=== PATIENT | male | born 1970 | race Caucasian/White ===

== ENCOUNTER 2017-05-27 11:06 | Emergency (ER) | payer OTHER ==
[~2017-05-27] VITALS: Ht 182.9 cm; Wt 86.2 kg
[~2017-05-27 11:06] MED LIST: ASPIRIN EC81 MG PO; AUGMENTIN 875-1 EACH PO; BACITRACIN15 GM TOP; BACTRIM DS TAB1 EACH PO; BACTROBAN22 GM TOP; CEPHALEXIN500 MG PO; CLINDAMYCIN HC300 MG PO; CYCLOBENZAPRINE10 MG PO; KEFLEX500 MG PO; LISINOPRIL20 MG PO; NORCO 5-325 TA1 EACH PO; NOVOLIN 70100 UNITS/ SUB-Q; TYLENOL PM EX-1 EACH PO; ULTRAM50 MG PO; ZESTRIL10 MG PO; ZOFRAN ODT4 MG PO
--- OUTSIDE RECORDS SUMMARY | 2017-05-27 11:10 | XMS ---
Demographics + + + | Address | [facility] | | | [place] | | | [place] [address] | + + + | Preferred Language | Unknown | + + + | Marital Status | Unknown | + + + | Denominational Affiliation | Unknown | + + + | Race | Unknown | + + + | Ethnic Group | Unknown | + + + Author + + + | Author | [facility] | + + + | Organization | [facility] | + + + | Address | [address] | | | [place] [address] | + + + | Phone | | + + + Care Team Providers + + + + | Care Automatic Pinsetter Mechanic Name | Role | Phone | + + + + Unavailable | Unavailable | + + + + PROBLEMS +---------+ + + +--------+ + + | Type | Condition | ICD9-CM | [id number] | Onset | Condition | SNOMED | | | | Code | Code | Dates | Status | Code | +---------+ + + +--------+ + + | Problem | Pain in | 724.1 | | | Active | 529753607 | | | thoracic | | | | | | | | spine | | | | | | +---------+ + + +--------+ + + | Problem | Type I | E10.8 | | | Active | 898649381 | | | diabetes | | | | | | | | mellitus | | | | | | | | with | | | | | | | | complicati | | | | | | | | on | | | | | | +---------+ + + +--------+ + + | Problem | Diabetes | E10.9 | | | Active | 238490228 | | | mellitus | | | | | | | | type 1, | | | | | | | | controlled | | | | | | | | , without | | | | | | | | complicati | | | | | | | | ons | | | | | | +---------+ + + +--------+ + + | Problem | Diabetes | 250.91 | | | Active | 730814413 | | | mellitus | | | | | | | | type 1 | | | | | | | | w/unspec | | | | | | | | complicati | | | | | | | | on, not | | | | | | | | stated as | | | | | | | | uncontroll | | | | | | | | ed | | | | | | +---------+ + + +--------+ + + | Problem | CONVULSIVE | 780.39 | | | Active | 28014785 | | | DISORDER | | | | | | +---------+ + + +--------+ + + | Problem | Atypical | 786.59 | | | Active | 424586263 | | | chest pain | | | | | | +---------+ + + +--------+ + + | Problem | Elevated | 796.2 | | | Active | 866310858 | | | blood | | | | | | | | pressure | | | | | | | | reading | | | | | | | | without | | | | | | | | diagnosis | | | | | | | | of | | | | | | | | hypertensi | | | | | | | | on | | | | | | +---------+ + + +--------+ + + | Problem | Other | | E13.621 | | Active | 426968361 | | | specified | | | | | | | | diabetes | | | | | | | | mellitus | | | | | | | | with foot | | | | | | | | ulcer | | | | | | +---------+ + + +--------+ + + | Problem | Diabetic | E11.42 | | | Active | 502043575 | | | peripheral | | | | | | | | | | | | | | | | neuropathy | | | | | | +---------+ + + +--------+ + + | Problem | Hypertensi | | I10 | | Active | 87599883 | | | on | | | | | | +---------+ + + +--------+ + + | Problem | Type 1 | | E10.69 | | Active | 597612530 | | | diabetes | | | | | | | | mellitus | | | | | | | | with other | | | | | | | | specified | | | | | | | | | | | | | | | | complicati | | | | | | | | on | | | | | | +---------+ + + +--------+ + + | Problem | Type 1 | | E10.621 | | Active | [id number] | | | diabetes | | | | | 68080 | | | mellitus | | | | | | | | with foot | | | | | | | | ulcer | | | | | | +---------+ + + +--------+ + + | Problem | Encounter | L02.91 | | | Active | 23059270 | | | for | | | | | | | | drainage | | | | | | | | of abscess | | | | | | +---------+ + + +--------+ + + ALLERGIES Unknown Allergies SOCIAL HISTORY No smoking Hx information available PLAN OF CARE VITAL SIGNS MEDICATIONS + + +---------+ + + + +--------+ | Medicati | Instruct | Dosage | Frequenc | Start | End Date | Duration | Status | | on | ions | | y | Date | | | | + + +---------+ + + + +--------+ | Doxycycl | Orally | 1 | 12h | 06 Lorenzo, | 16 Lorenzo, | 10 | Active | | ine | every 12 | capsule | | 2017 | 2017 | day(s) | | | Hyclate | hrs | | | | | | | | 100 mg | | | | | | | | + + +---------+ + + + +--------+ RESULTS No Results PROCEDURES No Known procedures IMMUNIZATIONS No Known Immunizations"
--- OUTSIDE RECORDS SUMMARY | 2017-05-27 11:10 | XMS ---
Demographics + + + | Address | [address] | | | [place] | | | [place] [address] | + + + | Preferred Language | Unknown | + + + | Marital Status | Unknown | + + + | Mormon Affiliation | Unknown | + + + | Race | Unknown | + + + | Ethnic Group | Unknown | + + + Author + + + | Author | [facility] | + + + | Organization | [facility] | + + + | Address | [address] | | | [place] [address] | + + + | Phone | | + + + Care Team Providers + + + + | Care Career And Guidance Counselor Name | Role | Phone | + + + + Unavailable | Unavailable | + + + + PROBLEMS + + + + + + + + | Type | Condition | ICD9-CM | [id number] | Onset | Condition | SNOMED | | | | Code | Code | Dates | Status | Code | + + + + + + + + | Problem | Pain in | 724.1 | | | Active | [id number] | | | thoracic | | | | | | | | spine | | | | | | + + + + + + + + | Problem | Type I | E10.8 | | | Active | 604409237 | | | diabetes | | | | | | | | mellitus | | | | | | | | with | | | | | | | | complicati | | | | | | | | on | | | | | | + + + + + + + + | Problem | Diabetes | E10.9 | | | Active | 863760520 | | | mellitus | | | | | | | | type 1, | | | | | | | | controlled | | | | | | | | , without | | | | | | | | complicati | | | | | | | | ons | | | | | | + + + + + + + + | Problem | Other | | E13.621 | | Active | 849838654 | | | specified | | | | | | | | diabetes | | | | | | | | mellitus | | | | | | | | with foot | | | | | | | | ulcer | | | | | | + + + + + + + + | Problem | Diabetic | E11.42 | | | Active | 175977931 | | | peripheral | | | | | | | | | | | | | | | | neuropathy | | | | | | + + + + + + + + | Problem | Hypertensi | | I10 | | Active | 63807225 | | | on | | | | | | + + + + + + + + | Problem | Type 1 | | E10.69 | | Active | 126644915 | | | diabetes | | | [...] on | | | | | | + + + + + + + + | Problem | Type 1 | | E10.621 | | Active | [id number] | | | diabetes | | | | | [address] | | | mellitus | | | | | | | | with foot | | | | | | | | ulcer | | | | | | + + + + + + + + | Problem | Encounter | L02.91 | | | Active | 54984366 | | | for | | | | | | | | drainage | | | | | | | | of abscess | | | | | | + + + + + + + + | Problem | Diabetes | 250.91 | | | Active | 666848331 | | | mellitus | | | [...] ed | | | | | | + + + + + + + + | Problem | CONVULSIVE | 780.39 | | | Active | 26186296 | | | DISORDER | | | | | | + + + + + + + + | Problem | Atypical | 786.59 | | | Active | 902682668 | | | chest pain | | | | | | + + + + + + + + | Assessment | Type 1 | | E10.69 | 08 March, | Active | 355165173 | | | diabetes | | | 2016 | | | | | mellitus | | | | | | | | with other | | | | | | | | specified | | | | | | | | | | | | | | | | complicati | | | | | | | | on | | | | | | + + + + + + + + | Problem | Elevated | 796.2 | | | Active | 298263133 | | | blood | | | [...] on | | | | | | + + + + + + + + ALLERGIES + + + + +---------+ | Substance | Reaction | Event Type | Date | Status | + + + + +---------+ | N.K.D.A. | Unknown | Non Drug | March, | Unknown | | | | Allergy | | | + + + + +---------+ SOCIAL HISTORY No smoking Hx information available PLAN OF CARE VITAL SIGNS + + + + | Height | 70 in | 2017-03-08 | + + + + | Weight | 186.6 lbs | 2017-03-08 | + + + + | BMI | 26.77 kg/m2 | 2017-03-08 | + + + + | Temperature | 98.7 degrees Fahrenheit | 2017-03-08 | + + + + | Heart Rate | 79 /min | 2017-03-08 | + + + + | Blood pressure systolic | 131 mm Hg | 2017-03-08 | + + + + | Blood pressure diastolic | 79 mm Hg | 2017-03-08 | + + + + MEDICATIONS + + + + + + + +--------+ | Medicati | Instruct | Dosage | Frequenc | Start | End Date | Duration | Status | | on | ions | | y | Date | | | | + + + + + + + +--------+ | Novolin | Subcutan | as | 12h | | | 30 | Active | | 70/30 | eous bid | directed | | | | | | | 70-30 % | | 42 | | | | | | | | | units | | | | | | + + + + + + + +--------+ | Metoprol | Orally | 1 tab(s) | 12h | 15 Mar, | | 30 | Active | | ol | bid | | | 2017 | | day(s) | | | Tartrate | | | | | | | | | 50 MG | | | | | | | | + + + + + + + +--------+ | OneTouch | | as | | 18 Apr, | | | Active | | Delica | | directed | | 2015 | | | | | Lancing | | | | | | | | | Dev | | | | | | | | + + + + + + + +--------+ | One | | as | | 18 Apr, | | | Active | | Touch | | directed | | 2015 | | | | | Glucomet | | | | | | | | | er | | | | | | | | + + + + + + + +--------+ | Lisinopr | Orally | 1 tablet | 24h | 24 Oct, | | 30 | Active | | il 20 mg | Once a | | | 2015 | | day(s) | | | | day | | | | | | | + + + + + + + +--------+ | One | | | | 18 Apr, | | | Active | | Touch | | | | 2015 | | | | | Delica | | | | | | | | | Lancets | | | | | | | | + + + + + + + +--------+ RESULTS No Results PROCEDURES + + + + + | Procedure | Date Ordered | Related Diagnosis | Body Site | + + + + + | Est Level II | March 08, 2017 | | | | Limited | | | | + + + + + IMMUNIZATIONS No Known Immunizations"
--- OUTSIDE RECORDS SUMMARY | 2017-05-27 11:10 | XMS ---
Demographics + + + | Address | [facility] | | | [place] | | | [place] [address] | + + + | Preferred Language | Unknown | + + + | Marital Status | Unknown | + + + | Evangelical Affiliation | Unknown | + + + | Race | Unknown | + + + | Ethnic Group | Unknown | + + + Author + + + | Author | [facility] | + + + | Organization | [facility] | + + + | Address | [address] | | | [place] [address] | + + + | Phone | | + + + Care Team Providers + + + + | Care Information Engineer Name | Role | Phone | + + + + Unavailable | Unavailable | + + + + PROBLEMS +---------+ + + +--------+ + + | Type | Condition | ICD9-CM | [id number] | Onset | Condition | SNOMED | | | | Code | Code | Dates | Status | Code | +---------+ + + +--------+ + + | Problem | Pain in | 724.1 | | | Active | 552983959 | | | thoracic | | | | | | | | spine | | | | | | +---------+ + + +--------+ + + | Problem | Type I | E10.8 | | | Active | 454262447 | | | diabetes | | | | | | | | mellitus | | | | | | | | with | | | | | | | | complicati | | | | | | | | on | | | | | | +---------+ + + +--------+ + + | Problem | Diabetes | E10.9 | | | Active | 129045810 | | | mellitus | | | [...] | 250.91 | | | Active | 324058393 | | | mellitus | | | [...] | 780.39 | | | Active | 84006067 | | | DISORDER | | | | | | +---------+ + + +--------+ + + | Problem | Atypical | 786.59 | | | Active | 316841053 | | | chest pain | | | | | | +---------+ + + +--------+ + + | Problem | Elevated | 796.2 | | | Active | 194799935 | | | blood | | | [...] | | E13.621 | | Active | 990890509 | | | specified | | | [...] | E11.42 | | | Active | 148283822 | | | peripheral | | | | | | | | | | | | | | | | neuropathy | | | | | | +---------+ + + +--------+ + + | Problem | Hypertensi | | I10 | | Active | 35901995 | | | on | | | | | | +---------+ + + +--------+ + + | Problem | Type 1 | | E10.69 | | Active | 254028008 | | | diabetes | | | [...] | | E10.621 | | Active | 2467395100 | | | diabetes | | | | | [address] | | | mellitus | | | | | | | | with foot | | | | | | | | ulcer | | | | | | +---------+ + + +--------+ + + | Problem | Encounter | L02.91 | | | Active | 77542931 | | | for | | | | | | | | drainage | | | | | | | | of abscess | | | | | | +---------+ + + +--------+ + + ALLERGIES Unknown Allergies SOCIAL HISTORY No smoking Hx information available PLAN OF CARE VITAL SIGNS MEDICATIONS Unknown Medications RESULTS No Results PROCEDURES No Known procedures IMMUNIZATIONS No Known Immunizations"
--- OUTSIDE RECORDS SUMMARY | 2017-05-27 11:10 | XMS ---
Demographics + + + | Address | [facility] | | | [place] | | | [place] [address] | + + + | Preferred Language | Unknown | + + + | Marital Status | Unknown | + + + | Rastafarian Affiliation | Unknown | + + + | Race | Unknown | + + + | Ethnic Group | Unknown | + + + Author + + + | Author | [facility] | + + + | Organization | [facility] | + + + | Address | [address] | | | [place] [address] | + + + | Phone | | + + + Care Team Providers + + + + | Care Die Attacher Name | Role | Phone | + + + + Unavailable | Unavailable | + + + + PROBLEMS +---------+ + + +--------+ + + | Type | Condition | ICD9-CM | [id number] | Onset | Condition | SNOMED | | | | Code | Code | Dates | Status | Code | +---------+ + + +--------+ + + | Problem | Pain in | 724.1 | | | Active | 886838092 | | | thoracic | | | | | | | | spine | | | | | | +---------+ + + +--------+ + + | Problem | Type I | E10.8 | | | Active | 456826431 | | | diabetes | | | | | | | | mellitus | | | | | | | | with | | | | | | | | complicati | | | | | | | | on | | | | | | +---------+ + + +--------+ + + | Problem | Diabetes | E10.9 | | | Active | 379188574 | | | mellitus | | | [...] | 250.91 | | | Active | 695097999 | | | mellitus | | | [...] | 780.39 | | | Active | 58359412 | | | DISORDER | | | | | | +---------+ + + +--------+ + + | Problem | Atypical | 786.59 | | | Active | 162460236 | | | chest pain | | | | | | +---------+ + + +--------+ + + | Problem | Elevated | 796.2 | | | Active | 780665324 | | | blood | | | [...] | | E13.621 | | Active | 042033311 | | | specified | | | [...] | E11.42 | | | Active | 819511902 | | | peripheral | | | | | | | | | | | | | | | | neuropathy | | | | | | +---------+ + + +--------+ + + | Problem | Hypertensi | | I10 | | Active | 51737388 | | | on | | | | | | +---------+ + + +--------+ + + | Problem | Type 1 | | E10.69 | | Active | 706499596 | | | diabetes | | | [...] | | E10.621 | | Active | 8274424379 | | | diabetes | | | | | [address] | | | mellitus | | | | | | | | with foot | | | | | | | | ulcer | | | | | | +---------+ + + +--------+ + + | Problem | Encounter | L02.91 | | | Active | 49671064 | | | for | | | | | | | | drainage | | | | | | | | of abscess | | | | | | +---------+ + + +--------+ + + ALLERGIES + + + + +---------+ | Substance | Reaction | Event Type | Date | Status | + + + + +---------+ | Joel | Unknown | Non Drug | Apr, | Unknown | | | | Allergy | | | + + + + +---------+ SOCIAL HISTORY No smoking Hx information available PLAN OF CARE + +---------+ | Activity | Details | + +---------+ +---+ | | +---+ + + + | Follow Up | 4 Weeks Reason:null | + + + VITAL SIGNS + + + + | Height | 70 in | 2017-04-08 | + + + + | Weight | 186.2 lbs | 2017-04-08 | + + + + | BMI | 26.71 kg/m2 | 2017-04-08 | + + + + | Temperature | 98.4 degrees Fahrenheit | 2017-04-08 | + + + + | Heart Rate | 73 /min | 2017-04-08 | + + + + | Blood pressure systolic | 115 mm Hg | 2017-04-08 | + + + + | Blood pressure diastolic | 79 mm Hg | 2017-04-08 | + + + + MEDICATIONS + [...] | ol | bid | | | 2016 | | day(s) | | | Tartrate [...] + + + + + +--------+ RESULTS + +--------+ + + | Name | Result | Date | Reference Range | + +--------+ + + | Culture, Aerobic | | 2017-04-08 | | + +--------+ + + | CULTURE, AEROBIC | | | | + +--------+ + + PROCEDURES No Known procedures IMMUNIZATIONS No Known Immunizations"
[2017-05-27] MEDS ORDERED: METOPROLOL TART50 MG PO (11:22)
[2017-05-27] MEDS ORDERED: KEFLEX500 MG PO (13:43)
== END 2017-05-27 13:57 | disposition home or self-care (01) ==
LOC: ED 11:06
DX: L98.9 Disorder of the skin and subcutaneous tissue, unspecified (principal); E10.9 Type 1 diabetes mellitus without complications; I10 Essential (primary) hypertension; E11.9 Type 2 diabetes mellitus without complications; Z87.891 Personal history of nicotine dependence; Z90.49 Acquired absence of other specified parts of digestive tract; Z79.4 Long term (current) use of insulin; Z79.899 Other long term (current) drug therapy
CPT/HCPCS: 36415; 85025; 99283

== ENCOUNTER 2017-05-29 12:43 | Emergency (ER) | payer OTHER ==
[~2017-05-29] VITALS: Ht 182.9 cm; Wt 86.2 kg
[~2017-05-29 12:43] MED LIST changes: +METOPROLOL TART50 MG PO
[2017-05-29] MEDS ORDERED: BACTRIM DS TAB1 EACH PO (16:26)
== END 2017-05-29 16:40 | disposition home or self-care (01) ==
LOC: ED 12:43
DX: L03.116 Cellulitis of left lower limb (principal); E10.9 Type 1 diabetes mellitus without complications; I10 Essential (primary) hypertension; Z79.4 Long term (current) use of insulin; Z90.49 Acquired absence of other specified parts of digestive tract
CPT/HCPCS: 80053; 83605; 85025; 96372; 99284; J7120

== ENCOUNTER 2017-06-13 12:34 | Emergency (ER) | payer OTHER ==
[~2017-06-13] VITALS: Ht 182.9 cm; Wt 86.2 kg
[2017-06-13] MEDS ORDERED: KEFLEX500 MG PO (13:09)
== END 2017-06-13 13:21 | disposition home or self-care (01) ==
LOC: ED 12:34
DX: L03.116 Cellulitis of left lower limb (principal); E11.9 Type 2 diabetes mellitus without complications; I10 Essential (primary) hypertension; Z87.891 Personal history of nicotine dependence; Z90.49 Acquired absence of other specified parts of digestive tract; Z79.4 Long term (current) use of insulin; Z79.899 Other long term (current) drug therapy
CPT/HCPCS: 99283

== ENCOUNTER 2019-11-13 17:57 | Emergency (ER) | payer OTHER ==
[~2019-11-13] VITALS: Ht 182.9 cm; Wt 86.2 kg
--- OUTSIDE RECORDS SUMMARY | ~2019-11-13 | XMS | Encounter Summary ---
Demographics + + + | Address | [address] | | | [place] [address] | + + + | Home Phone | | + + + | Preferred Language | Unknown | + + + | Marital Status | Unknown | + + + | Hoahaoism Affiliation | Unknown | + + + | Race | Unknown | + + + | Ethnic Group | Unknown | + + + Author + + + | Author | [facility] | | | and [place] | + + + | Organization | [facility] | | | and [place] | + + + | Address | Unknown | + + + | Phone | Unavailable | + + + Support + + + + + | Name | Relationship | Address | Phone | + + + + + | Message Detailed | ECON | [address] | | | | | [place] | | | | | [address] | | + + + + + Care Team Providers + +------+ + | Care Survey Operations Director Name | Role | Phone | + +------+ + | Yrn Buckley MD | PCP | | + +------+ + Encounter Details +--------+ + + + + | Date | Type | Department | Care Team | Description | +--------+ + + + + | 06/23/ | Orders Only | [facility] | Eros Rothman MD | Kidney failure | | 2019 | | [place]OLOGY [place] | [address] | | | | | [address] | [address] [place], [place] | | | | | [address] [place], [place] | [address] | | | | | [address] | | | | | | [phone] | | | +--------+ + + + + Social History + +-------+ +--------+------+ | Tobacco Use | Types | Packs/Day | Years | Date | | | | | Used | | + +-------+ +--------+------+ | Never Assessed | | | | | + +-------+ +--------+------+ + + + | Sex Assigned at | Date Recorded | | | | + + + | Not on file | | + + + + + + + | Job Start Date | Occupation | Industry | + + + + | Not on file | Not on file | Not on file | + + + + + + + + | Travel History | Travel Start | Travel End | + + + + + + | No recent travel history available. | + + documented as of this encounter Plan of Treatment +--------+---------+ + + + | Date | Type | Specialty | Care Team | Description | +--------+---------+ + + + | 12/18/ | Office | Nephrology | Eros Rothman MD | | | 2019 | Visit | | [address] [facility] [address] | | | | | | [facility] [place] [place] | | | | | | [address] | | | | | | | | +--------+---------+ + + + + +------+--------+ + + | Name | Type | Priori | Associated Diagnoses | Order Schedule | | | | ty | | | + +------+--------+ + + | Basic Metabolic | Lab | Routin | Kidney failure | Expected: | | Panel | | e | | 07/12/2019, Expires: | | | | | | 05/03/2020 | + +------+--------+ + + | CBC with | Lab | Routin | Kidney failure | Expected: | | Differential | | e | | 07/12/2019, Expires: | | | | | | 05/03/2020 | + +------+--------+ + + | Protein/Creatinine | Lab | Routin | Kidney failure | Expected: | | Ratio, Urine | | e | | 07/12/2019, Expires: | | | | | | 05/03/2020 | + +------+--------+ + + | Urinalysis with | Lab | Routin | Kidney failure | Expected: | | Microscopic if | | e | | 07/12/2019, Expires: | | Indicated | | | | 05/03/2020 | + +------+--------+ + + | Uric Acid | Lab | Routin | Kidney failure | Expected: | | | | e | | 07/12/2019, Expires: | | | | | | 05/03/2020 | + +------+--------+ + + documented as of this encounter Visit Diagnoses + + | Diagnosis | + + | Kidney failure Renal failure, unspecified | + + documented in this encounter"
--- OUTSIDE RECORDS SUMMARY | ~2019-11-13 | XMS | Encounter Summary ---
Demographics + + + | Address | [address] | | | [place] [address] | + + + | Home Phone | | + + + | Preferred Language | Unknown | + + + | Marital Status | Unknown | + + + | Mormon Affiliation | Unknown | + + + | Race | Unknown | + + + | Ethnic Group | Unknown | + + + Author + + + | Author | [facility] | | | and [place] | + + + | Organization | [facility] | | [...] [place] | | | | | [address] | | + + + + + Care Team Providers + +------+ + | Care Instructional Design Consultant Name | Role | Phone | + +------+ + | Yrn Buckley MD | PCP | | + +------+ + Encounter Details +--------+ + + + + | Date | Type | Department | Care Team | Description | +--------+ + + + + | 05/18/ | Orders Only | [facility] | Conversion | | | 2019 | | CONVERSION [address] | Transaction, | | | | | [address] | Provider Unknown | | | | | [place] | [phone] | | | | | [address] | | | | | | [phone] | | | +--------+ + + + [...] 2019 | Visit | | [address] [facility] | | | | | | [address] [place] | | | | | | [address] | | | | | | | | +--------+---------+ + + + documented as of this encounter Visit Diagnoses Not on filedocumented in this encounter"
--- OUTSIDE RECORDS SUMMARY | ~2019-11-13 | XMS | Encounter Summary ---
Demographics + + + | Address | [address] | | | [place] [address] | + + + | Home Phone | | + + + | Preferred Language | Unknown | + + + | Marital Status | Unknown | + + + | Synagogue Affiliation | Unknown | + + + | Race | Unknown | + + + | Ethnic Group | Unknown | + + + Author + + + | Author | [facility] | | | and [place] | + + + | Organization | [facility] | | | and [place] | + + + | Address | Unknown | + + + | Phone | Unavailable | + + + Support + + + + + | Name | Relationship | Address | Phone | + + + + + | Message Detailed | ECON | [address] | | | | | [place] | | | | | [address] | | + + + + + Care Team Providers + +------+ + | Care Agricultural Purchasing Agent Name | Role | Phone | + +------+ + | Yrn Buckley MD | PCP | | + +------+ + Reason for Visit +---------+ + | Reason | Comments | +---------+ + | Results | 10/03/19 | +---------+ + Encounter Details +--------+ + + + + | Date | Type | Department | Care Team | Description | +--------+ + + + + | 10/09/ | Documentati | [facility] | Garcia, | Results (10/03/19) | | 2019 | on | NEPHROLOGY SHAHRIAR | [facility] | | | | | [address] | [employer] | | | | | [address] [facility] | | | | | | [place] | | | | | | [address] | | | | | | [phone] | | | +--------+ + + + [...] | Eros Rothman MD | | | 2020 | Visit | | [address] [facility] | | | | | | [address] [place] | | | | | | [address] | | | | | | | | +--------+---------+ + + + documented as of this encounter Procedures + +--------+ + + + | Procedure Name | Priori | Date/Time | Associated Diagnosis | Comments | | | ty | | | | + +--------+ + + + | CBC NO DIFFERENTIAL | Routin | 10/03/2019 | | Results for this | | | e | | | procedure are in the | | | | | | results section. | + +--------+ + + + | URINALYSIS | Routin | 10/03/2019 | | Results for this | | | e | | | procedure are in the | | | | | | results section. | + +--------+ + + + | CULTURE, URINE | Routin | 10/03/2019 | | Results for this | | | e | | | procedure are in the | | | | | | results section. | + +--------+ + + + | URIC ACID | Routin | 10/03/2019 | | Results for this | | | e | | | procedure are in the | | | | | | results section. | + +--------+ + + + | BASIC METABOLIC | Routin | 10/03/2019 | | Results for this | | PANEL | e | | | procedure are in the | | | | | | results section. | + +--------+ + + + documented in this encounter Results Culture, Urine (10/03/2019) + + + + + + | Component | Value | Ref Range | Performed | Pathologist | | | | | At | Signature | + + + + + + | Urine | No growth | | | | | Culture, | | | | | | Routine | | | | | + + + + + + + + | Specimen | + + | Urine | + + Urinalysis (10/03/2019) + + + + + + | Component | Value | Ref Range | Performed | Pathologist | | | | | At | Signature | + + + + + + | Color | Yellow | | | | + + + + + + | Clarity | Cloudy | | | | + + + + + + | Specific | 1.011 | 1.001 - 1.030 | | | | [place] | | | | | + + + + + + | pH, Urine | 5.0 | 5.0 - 8.0 | | | + + + + + + | Protein, | 300 mg/dL (A) | Negative | | | | Urine | | | | | + + + + + + | Glucose, | Trace (A) | Negative | | | | Urine | | | | | + + + + + + | Ketones, | Negative | Negative | | | | Urine | | | | | + + + + + + | Bilirubin, | Negative | Negative | | | | Urine | | | | | + + + + + + | Blood, | Moderate (A) | Negative | | | | Urine | | | | | + + + + + + | Nitrite, | Negative | Negative | | | | Urine | | | | | + + + + + + | Urobilinoge | Normal | < 0.2 mg/dL, | | | | n, Urine | | 1.0 mg/dL, 4.0 | | | | | | mg/dL, Normal, | | | | | | 1.0 E.U./dL, | | | | | | 0.2 E.U./dL, | | | | | | 0.2 mg/dL, | | | | | | Negative, 1 | | | | | | mg/dL, <2.0 | | | | | | mg/dL | | | + + + + + + | Leukocyte | Trace (A) | Negative | | | | Esterase, | | | | | | Urine | | | | | + + + + + + | CASTS | Negative | | | | + + + + + + | WBC UA | 10 | /HPF | | | + + + + + + | RBC UA | 5 | /HPF | | | + + + + + + | Epithelial | 1+ | | | | | Cells | | | | | + + + + + + | CRYSTAL UA | Negative | | | | + + + + + + | Bacteria, | 1+ | | | | | UA | | | | | + + + + + + + + | Specimen | + + | Urine | + + CBC with Manual Differential (10/03/2019) + + + + + + | Component | Value | Ref Range | Performed | Pathologist | | | | | At | Signature | + + + + + + | WBC | 7.3 | 4.5 - 11.0 | | | + + + + + + | RBC | 3.04 (A) | 4.30 - 5.70 | | | | | | M/uL | | | + + + + + + | Hemoglobin | 8.7 (A) | 13.5 - 18.0 | | | + + + + + + | Hematocrit, | 26.9 (A) | 41.0 - 50.0 % | | | | POC | | | | | + + + + + + | MCV | 88.6 | 81.0 - 99.0 fL | | | + + + + + + | MCH | 29.0 | 27.0 - 33.0 pg | | | + + + + + + | MCHC | 32.0 | 30.0 - 36.0 | | | | | | g/dL | | | + + + + + + | Platelet | 206 | 140 - 440 | | | | Count | | | | | | Plasma | | | | | + + + + + + | RDW | 15.2 (A) | 10.5 - 15.0 | | | + + + + + + | Neutrophils | 67.9 | 39 - 80 | | | | , Absolute | | | | | + + + + + + | Absolute | 17.3 (A) | 24 - 44 | | | | Lymphocytes | | | | | + + + + + + | Absolute | 7.4 | 0 - 12 | | | | Monocytes | | | | | + + + + + + | Eosinophils | 6.5 (A) | 0 - 6 | | | | , Absolute | | | | | + + + + + + | Basophils, | 0.9 | 0 - 2 | | | | Absolute | | | | | + + + + + + + + | Specimen | + + | Blood | + + Basic Metabolic Panel (10/03/2019) + + + + + + | Component | Value | Ref Range | Performed | Pathologist | | | | | At | Signature | + + + + + + | Na | 138 | 132 - 143 | | | | | | mmol/L | | | + + + + + + | K | 5.9 (A) | 3.6 - 5.1 | | | | | | mmol/L | | | + + + + + + | Cl | 110 | 95 - 112 mmol/L | | | + + + + + + | CO2 | 16 (A) | 19 - 31 mmol/L | | | + + + + + + | Anion Gap | 18 | 7 - 21 mmol/L | | | + + + + + + | Glucose | 109 (A) | 70 - 100 mg/dL | | | + + + + + + | Calcium | 8.6 | 8.5 - 10.3 | | | + + + + + + | BUN | 63 (A) | 6 - 23 mg/dL | | | + + + + + + | Creatinine | 6.85 (A) | 0.70 - 1.33 | | | | | | mg/dL | | | + + + + + + | Estimated | 9.0 (A) | 60.0 - 140.0 | | | | GFR | | mL/min/1.73m2 | | | + + + + + + | BUN/Creatin | 9.2 | 6.0 - 28.6 | | | | ine Ratio | | | | | + + + + + + + + | Specimen | + + | Blood | + + Uric Acid (10/03/2019) + +---------+ + + + | Component | Value | Ref Range | Performed | Pathologist | | | | | At | Signature | + +---------+ + + + | Uric Acid | 9.0 (A) | 4.4 - 7.6 | | | + +---------+ + + + + + | Specimen | + + | Blood | + + documented in this encounter Visit Diagnoses Not on filedocumented in this encounter"
--- OUTSIDE RECORDS SUMMARY | ~2019-11-13 | XMS | Encounter Summary ---
Demographics + + + | Address | [address] | | | [place] [address] | + + + | Home Phone | | + + + | Preferred Language | Unknown | + + + | Marital Status | Unknown | + + + | Anabaptist Affiliation | Unknown | + + + | Race | Unknown | + + + | Ethnic Group | Unknown | + + + Author + + + | Author | [facility] | | | and [place] | + + + | Organization | [facility] | | | [...] [place] | | | | | [address] | | + + + + + Care Team Providers + +------+ + | Care Surplus Property Disposal Agent Name | Role | Phone | + +------+ + | Yrn Buckley MD | PCP | | + +------+ + Reason for Visit +--------+ + | Reason | Comments | +--------+ + | Other | US retroperitoneal 07/26/19 | +--------+ + Encounter Details +--------+ + + + + | Date | Type | Department | Care Team | Description | +--------+ + + + + | 10/13/ | Documentati | [facility] | Jose, | Other ( | | 2019 | on | NEPHROLOGY SHAHRIAR | [facility] | retroperitoneal | | | | [address] | [employer] | 07/26/19) | | | | [address] | | | | | | [place] | | | | | | [address] | | | | | | [phone] | | | +--------+ + + + [...] 2020 | Visit | | [address] [facility] | | | | | | [address] [place] | | | | | | [address] | | | | | | | | +--------+---------+ + + + documented as of this encounter Visit Diagnoses Not on filedocumented in this encounter"
--- OUTSIDE RECORDS SUMMARY | ~2019-11-13 | XMS | Encounter Summary ---
Demographics + + + | Address | [address] | | | [place] [address] | + + + | Home Phone | | + + + | Preferred Language | Unknown | + + + | Marital Status | Unknown | + + + | Mormon Affiliation | Unknown | + + + | Race | Unknown | + + + | Ethnic Group | Unknown | + + + Author + + + | Author | [facility] | | | and [place] | + + + | Organization | [facility] | | | and [...] [place] | | | | | [address] | | + + + + + Care Team Providers + +------+ + | Care Extrusion Operator Name | Role | Phone | + +------+ + | Yrn Buckley MD | PCP | | + +------+ + Reason for Visit +---------+ + | Reason | Comments | +---------+ + | Results | 11/10/19 | +---------+ + Encounter Details +--------+ + + + + | Date | Type | Department | Care Team | Description | +--------+ + + + + | 11/13/ | Documentati | [facility] | Garcia, | Results (11/10/19) | | 2020 | on | NEPHROLOGY YAIMA | [facility] | | | | | [address] | [address] Monitor | | | | | [address] [facility] [place] | | | | | | [address] | | | | | | [phone] | | | +--------+ + + + [...] 2020 | Visit | | [address] [facility] | | | | | | [address] [facility] | | | | | | [address] | | | | | | (Fax) | | +--------+---------+ + + + documented as of this encounter Procedures + +--------+ + + + | Procedure Name | Priori | Date/Time | Associated Diagnosis | Comments | | | ty | | | | + +--------+ + + + | EXTERNAL LAB: PTH, | Routin | 11/10/2019 | | Results for this | | INTACT | e | | | procedure are in the | | | | | | results section. | + +--------+ + + + | IMMUNOFIXATION, | Routin | 11/10/2019 | | Results for this | | SERUM | e | | | procedure are in the | | | | | | results section. | + +--------+ + + + | CBC NO DIFFERENTIAL | Routin | 11/10/2019 | | Results for this | | | e | | | procedure are in the | | | | | | results section. | + +--------+ + + + | IRON AND IRON | Routin | 11/10/2019 | | Results for this | | BINDING CAPACITY | e | | | procedure are in the | | | | | | results section. | + +--------+ + + + | KAPPA AND LAMBDA | Routin | 11/10/2019 | | Results for this | | LIGHT CHAIN RATIO | e | | | procedure are in the | | | | | | results section. | + +--------+ + + + | PROTEIN/CREATININE | Routin | 11/10/2019 | | Results for this | | RATIO, URINE | e | | | procedure are in the | | | | | | results section. | + +--------+ + + + | RENAL FUNCTION PANEL | Routin | 11/10/2019 | | Results for this | | | e | | | procedure are in the | | | | | | results section. | + +--------+ + + + documented in this encounter Results Immunofixation, Serum (11/10/2019) + +-------+ + + + | Component | Value | Ref Range | Performed | Pathologist | | | | | At | Signature | + +-------+ + + + | Protein, | 6.4 | | | | | Total | | | | | + +-------+ + + + | Albumin | 3.4 | g/dL | | | + +-------+ + + + | ALPHA 1, BF | 0.22 | | | | + +-------+ + + + | IgG Serum | 1,523 | | | | + +-------+ + + + | Immunoglobu | 204 | | | | | gunnar A, | | | | | | Quant, CSF | | | | | + +-------+ + + + | ALPHA 2, BF | 0.70 | | | | + +-------+ + + + | BETA 1, BF | 0.73 | | | | + +-------+ + + + | GAMMA, BF | 1.39 | | | | + +-------+ + + + | Immunoglobu | 88 | | | | | gunnar M Urine | | | | | + +-------+ + + + + + | Specimen | + + | Blood | + + Mangham and Lambda Light Chain Ratio (11/10/2019) + +-------+ + + + | Component | Value | Ref Range | Performed | Pathologist | | | | | At | Signature | + +-------+ + + + | KAPPA LIGHT | 19.60 | | | | | CHAIN | | | | | + +-------+ + + + | LAMBDA | 14.60 | | | | | LIGHT CHAIN | | | | | + +-------+ + + + | KAPPA/LAMBD | 1.34 | | | | | A RATIO | | | | | + +-------+ + + + + + | Specimen | + + | Blood | + + External Lab: PTH, Intact (11/10/2019) + + + + + + | Component | Value | Ref Range | Performed | Pathologist | | | | | At | Signature | + + + + + + | PTH Intact, | 165.4 (A) | 15 - 65 | | | | External | | | | | + + + + + + + + | Specimen | + + | | + + CBC with Manual Differential (11/10/2019) + + + + + + | Component | Value | Ref Range | Performed | Pathologist | | | | | At | Signature | + + + + + + | WBC | 7.1 | 4.5 - 11.0 | | | + + + + + + | RBC | 3.09 (A) | 4.30 - 5.70 | | | | | | M/uL | | | + + + + + + | Hemoglobin | 8.9 (A) | 13.5 - 18.0 | | | + + + + + + | Hematocrit, | 26.8 (A) | 41.0 - 50.0 % | | | | POC | | | | | + + + + + + | MCV | 86.8 | 81.0 - 99.0 fL | | | + + + + + + | MCH | 29.0 | 27.0 - 33.0 pg | | | + + + + + + | MCHC | 33.0 | 30.0 - 36.0 | | | | | | g/dL | | | + + + + + + | Platelet | 254 | 140 - 440 | | | | Count | | | | | | Plasma | | | | | + + + + + + | RDW | 14.9 | 10.5 - 15.0 | | | + + + + + + | Neutrophils | 74.9 | 39 - 80 | | | | , Absolute | | | | | + + + + + + | Absolute | 14.4 (A) | 24 - 44 | | | | Lymphocytes | | | | | + + + + + + | Absolute | 5.6 | 0 - 12 | | | | Monocytes | | | | | + + + + + + | Eosinophils | 4.9 | 0 - 6 | | | | , Absolute | | | | | + + + + + + | Basophils, | 1.2 | 0 - 2 | | | | Absolute | | | | | + + + + + + + + | Specimen | + + | Blood | + + Iron and Iron Binding Capacity (11/10/2019) + +-------+ + + + | Component | Value | Ref Range | Performed | Pathologist | | | | | At | Signature | + +-------+ + + + | Iron | 74 | 37 - 160 ug/dL | | | + +-------+ + + + | Iron | 29 | 20 - 55 % | | | | Saturation | | | | | + +-------+ + + + | TIBC | 254 | 245 - 400 ug/dL | | | + +-------+ + + + | Ferritin, | 392.3 | 30 - 400 | | | | External | | | | | + +-------+ + + + | TRANSFERRIN | 181.7 | 180.0 - 329.0 | | | | | | mg/dL | | | + +-------+ + + + + + | Specimen | + + | Blood | + + Renal Function Panel (11/10/2019) + + + + + + | Component | Value | Ref Range | Performed | Pathologist | | | | | At | Signature | + + + + + + | Na | 134 | 132 - 143 | | | | | | mmol/L | | | + + + + + + | K | 4.9 | 3.6 - 5.1 | | | | | | mmol/L | | | + + + + + + | Cl | 107 | 95 - 112 mmol/L | | | + + + + + + | CO2 | 13 (A) | 19 - 31 mmol/L | | | + + + + + + | Anion Gap | 19 | 7 - 21 mmol/L | | | + + + + + + | Glucose | 137 (A) | 70 - 100 mg/dL | | | + + + + + + | BUN | 100 (A) | 6 - 23 mg/dL | | | + + + + + + | Creatinine | 9.34 (A) | 0.70 - 1.33 | | | | | | mg/dL | | | + + + + + + | Estimated | 6.0 (A) | 60.0 - 140.0 | | | | GFR | | mL/min/1.73m2 | | | + + + + + + | BUN/Creatin | 10.7 | 6.0 - 28.6 | | | | ine Ratio | | | | | + + + + + + | Albumin | 3.4 (A) | 3.5 - 5.0 g/dL | | | + + + + + + | Calcium | 8.4 (A) | 8.5 - 10.3 | | | + + + + + + | PHOSPHORUS | 6.1 (A) | 2.5 - 5.0 | | | + + + + + + + + | Specimen | + + | Blood | + + Protein/Creatinine Ratio, Urine (11/10/2019) + + + + + + | Component | Value | Ref Range | Performed | Pathologist | | | | | At | Signature | + + + + + + | Protein/Cre | 3,749.7 (A) | 0 - 150 | | | | at Ratio | | | | | + + + + + + + + | Specimen | + + | Urine | + + documented in this encounter Visit Diagnoses Not on filedocumented in this encounter"
--- OUTSIDE RECORDS SUMMARY | ~2019-11-13 | XMS | Clinical Summary ---
Demographics + + + | Address | [address] | | | [place] [address] | + + + | Home Phone | | + + + | Preferred Language | Unknown | + + + | Marital Status | Unknown | + + + | Quaker Affiliation | Unknown | + + + | Race | Unknown | + + + | Ethnic Group | Unknown | + + + Author + + + | Author | [facility] (Historical as of | | | 06-24-19) | + + + | Organization | [facility] (Historical as of | | | 06-24-19) | + + + | Address | Unknown | + + + | Phone | Unavailable | + + + Support + + + + + | Name | Relationship | Address | Phone | + + + + + | No,Contact | ECON | [address] | | | | | [place] | | | | | [address] | | + + + + + Care Team Providers + +------+ + | Care Torch Solderer Name | Role | Phone | + +------+ + | Yrn Buckley MD | PP | | + +------+ + Allergies Not on File Current Medications + + +-------+---------+------+------+-------+ | Prescription | Sig. | Disp. | Refills | Star | End | Statu | | | | | | t | Date | s | | | | | | Date | | | + + +-------+---------+------+------+-------+ | insulin - MIX | Inject into the | | | | | Activ | | insulin NPH-insulin | skin 2 (two) times | | | | | e | | regular 70/30 | daily before meals. | | | | | | | (HUMULIN, NOVOLIN | | | | | | | | 70/30) (70-30) 100 | | | | | | | | UNIT/ML injection | | | | | | | + + +-------+---------+------+------+-------+ | lisinopril | Take 40 mg by mouth | | | | | Activ | | (ZESTRIL) 40 MG | daily. | | | | | e | | tablet | | | | | | | + + +-------+---------+------+------+-------+ | metoprolol | Take 50 mg by mouth | | | | | Activ | | (TOPROL-XL) 50 MG 24 | daily. | | | | | e | | hr tablet | | | | | | | + + +-------+---------+------+------+-------+ | atorvastatin | Take 20 mg by mouth | | | | | Activ | | (LIPITOR) 20 MG | nightly. | | | | | e | | tablet | | | | | | | + + +-------+---------+------+------+-------+ Active Problems Not on file Family History + + +------+ + | Medical History | Relation | Name | Comments | + + +------+ + | Prostate cancer | Father | | | + + +------+ + | Diabetes | Mother | | | + + +------+ + | Renal Disease | Mother | | | + + +------+ + + +------+--------+ + | Relation | Name | Status | Comments | + +------+--------+ + | Father | | | | + +------+--------+ + | Mother | | | | + +------+--------+ + Social History + +-------+ +--------+------+ | [...] on file | | + + + Plan of Treatment + + + + + | Health Maintenance | Due Date | Last Done | Comments | + + + + + | Vaccine: | | | | | Dtap/Tdap/Td (1 - | 8 | | | | Tdap) | | | | + + + + + | Colon Cancer | | | | | Screening | 9 | | | | (Colonoscopy) | | | | + + + + + | Vaccine: Zoster (1 | | | | | of 2) | 9 | | | + + + + + | Vaccine: Influenza | | | | | (#1) | 9 | | | + + + + + Results Not on filefrom Last 3 Months Insurance + +--------+ +------+-------+ + | Payer | Benefi | Subscriber | Type | Phone | Address | | | t Plan | ID | | | | | | / | | | | | | | Group | | | | | + +--------+ +------+-------+ + | MEDICAID | [place] | [id number] | | | [address] | | | [place] | | | | [place] | | | [place] | | | | [address] | | | [place] | | | | | + +--------+ +------+-------+ + + +--------+ +--------+ + + | Guarantor Name | Accoun | Relation to | Date | Phone | Billing Address | | | t Type | Patient | of | | | | | | | | | | + +--------+ +--------+ + + | CELY PALMER | Person | Self [birth year] Home: | [address] | | [email or web address] | | 1970 | [phone] [place] | | | [place] | | [phone] | + +--------+ +--------+ + +"
--- OUTSIDE RECORDS SUMMARY | ~2019-11-13 | XMS | Encounter Summary ---
Demographics + + + | Address | [address] | | | [place] [address] | + + + | Home Phone | | + + + | Preferred Language | Unknown | + + + | Marital Status | Unknown | + + + | Restorationism Affiliation | Unknown | + + + [...] [place] | | | | | [address] | | + + + + + Care Team Providers + +------+ + | Care Field Supervisor Seed Production Name | Role | Phone | + +------+ + | Yrn Buckley MD | PCP | | + +------+ + Encounter Details +--------+ + + + + | Date | Type | Department | Care Team | Description | +--------+ + + + + | 10/09/ | Orders Only | [facility] | Eros Rothman MD | CKD (chronic kidney | | 2019 | | NEPHROLOGY SHAHRIAR | [address] [place] | disease) stage 5, | | | | [address] | [address] [place], [place] | GFR less than 15 | | | | [address] | [id number] | ml/min (HCC) | | | | [place], [place] | | (Primary Dx); | | | | [address] | | Nephrotic range | | | | [phone] | | proteinuria; Anemia | | | | | | of chronic kidney | | | | | | failure, stage 5 | | | | | | (HCC) | +--------+ + + + + Social [...] 2020 | Visit | | [address] [facility] [facility] | | | | | | [address] [place], [place] | | | | | | [address] | | | | | | | | +--------+---------+ + + + + +---------+--------+ + + | Name | Type | Priori | Associated Diagnoses | Order Schedule | | | | ty | | | + +---------+--------+ + + | Renal Function Panel | Lab | Routin | CKD (chronic | Expected: | | | | e | kidney disease) | 10/16/2019, Expires: | | | | | stage 5, GFR less | 10/09/2020 | | | | | than 15 ml/min ([facility]) | | | | | | Nephrotic range | | | | | | proteinuria | | + +---------+--------+ + + | CBC with | Lab | Routin | CKD (chronic | Expected: | | Differential | | e | kidney disease) | 10/16/2019, Expires: | | | | | stage 5, GFR less | 10/09/2020 | | | | | than 15 ml/min ([facility]) | | | | | | Nephrotic range | | | | | | proteinuria | | + +---------+--------+ + + | US Renal Complete | Imaging | Routin | CKD (chronic | Expected: | | | | e | kidney disease) | 10/09/2019, Expires: | | | | | stage 5, GFR less | 10/09/2020 | | | | | than 15 ml/min ([facility]) | | | | | | Nephrotic range | | | | | | proteinuria | | + +---------+--------+ + + | Renal Function Panel | Lab | Routin | CKD (chronic | Expected: | | | | e | kidney disease) | 11/09/2019, Expires: | | | | | stage 5, GFR less | 10/09/2020 | | | | | than 15 ml/min ([facility]) | | | | | | Nephrotic range | | | | | | proteinuria | | + +---------+--------+ + + | CBC with | Lab | Routin | CKD (chronic | Expected: | | Differential | | e | kidney disease) | 11/09/2019, Expires: | | | | | stage 5, GFR less | 10/09/2020 | | | | | than 15 ml/min ([facility]) | | | | | | Nephrotic range | | | | | | proteinuria | | + +---------+--------+ + + | Iron and Iron | Lab | Routin | CKD (chronic | Expected: | | Binding Capacity | | e | kidney disease) | 11/09/2019, Expires: | | | | | stage 5, GFR less | 10/09/2020 | | | | | than 15 ml/min ([facility]) | | | | | | Nephrotic range | | | | | | proteinuria Anemia | | | | | | of chronic kidney | | | | | | failure, stage 5 | | | | | | (HCC) | | + +---------+--------+ + + | Ferritin | Lab | Routin | CKD (chronic | Expected: | | | | e | kidney disease) | 11/09/2019, Expires: | | | | | stage 5, GFR less | 10/09/2020 | | | | | than 15 ml/min ([facility]) | | | | | | Nephrotic range | | | | | | proteinuria Anemia | | | | | | of chronic kidney | | | | | | failure, stage 5 | | | | | | ([facility]) | | + +---------+--------+ + + | Parathyroid Hormone, | Lab | Routin | CKD (chronic | Expected: | | Intact | | e | kidney disease) | 11/09/2019, Expires: | | | | | stage 5, GFR less | 10/09/2020 | | | | | than 15 ml/min ([facility]) | | | | | | Nephrotic range | | | | | | proteinuria | | + +---------+--------+ + + | Immunoglobulin, Free | Lab | Routin | CKD (chronic | Expected: | | Light Chain | | e | kidney disease) | 11/09/2019, Expires: | | | | | stage 5, GFR less | 10/09/2020 | | | | | than 15 ml/min ([facility]) | | | | | | Nephrotic range | | | | | | proteinuria | | + +---------+--------+ + + | Immunofixation, | Lab | Routin | CKD (chronic | Expected: | | Serum | | e | kidney disease) | 11/09/2019, Expires: | | | | | stage 5, GFR less | 10/09/2020 | | | | | than 15 ml/min ([facility]) | | | | | | Nephrotic range | | | | | | proteinuria | | + +---------+--------+ + + | Protein/Creatinine | Lab | Routin | CKD (chronic | Expected: | | Ratio, Urine | | e | kidney disease) | 11/09/2019, Expires: | | | | | stage 5, GFR less | 10/09/2020 | | | | | than 15 ml/min ([facility]) | | | | | | Nephrotic range | | | | | | proteinuria | | + +---------+--------+ + + documented as of this encounter Visit Diagnoses + + | Diagnosis | + + | CKD (chronic kidney disease) stage 5, GFR less than 15 ml/min ([facility]) - Primary Chronic | | kidney disease, Stage V | + + | Nephrotic range proteinuria Proteinuria | + + | Anemia of chronic kidney failure, stage 5 (HCC) | + + documented in this encounter"
--- OUTSIDE RECORDS SUMMARY | ~2019-11-13 | XMS | Encounter Summary ---
Demographics + + + | Address | [address] | | | [place] [address] | + + + | Home Phone | | + + + | Preferred Language | Unknown | + + + | Marital Status | Unknown | + + + | Baptist Affiliation | Unknown | + + + [...] [place] | | | | | [address] | | + + + + + Care Team Providers + +------+ + | Care Washing And Screening Plant Supervisor Name | Role | Phone | [...] | | | | [place] | [phone] | | | | | [address] | | | | | | [phone] | | | +--------+ + + + [...] 2019 | Visit | | [address] [facility] | | | | | | [address] [place] | | | | | | [address] | | | | | | | | +--------+---------+ + + + documented as of this encounter Visit Diagnoses Not on filedocumented in this encounter"
--- OUTSIDE RECORDS SUMMARY | ~2019-11-13 | XMS | Encounter Summary ---
Demographics + + + | Address | [address] | | | [place] [address] | + + + | Home Phone | | + + + | Preferred Language | Unknown | + + + | Marital Status | Unknown | + + + | Jew Affiliation | Unknown | + + + | Race | Unknown | + + + | Ethnic Group | Unknown | + + + Author + + + | Author | [facility] | | | and [place] | + + + | Organization | [facility] | | [...] [place] | | | | | [address] | | + + + + + Care Team Providers + +------+ + | Care Doctor Of Podiatry Name | Role | Phone | + [...] + | 11/13/ | Documentati | [facility] | Garcia, | Results (11/10/19) | | 2020 | on | NEPHROLOGY [place] | [facility] | | | | | [address] | [employer] | | | | | [address] [facility] [place] | | | | | | [address] | | | | | | [phone] | | | +--------+ + + + [...] 2020 | [facility] | | [address] [facility] | | | | | | [address] [facility] [place] | | | | | | [address] | | | | | | (Fax) [...] + + | Blood | + + Poplar and Lambda Light Chain Ratio (11/10/2019) + [...]
--- OUTSIDE RECORDS SUMMARY | ~2019-11-13 | XMS | Encounter Summary ---
Demographics + + + | Address | [address] | | | [place] [address] | + + + | Home Phone | | + + + | Preferred Language | Unknown | + + + | Marital Status | Unknown | + + + | Caodaism Affiliation | Unknown | + + + | Race | Unknown | + + + | Ethnic Group | Unknown | + + + Author + + + | Author | [facility] | | | and [place] | + + + | Organization | [facility] | | | [...] [place] | | | | | [address] | | + + + + + Care Team Providers + +------+ + | Care Gwot Ia/Ilo Intelligence Support Name | Role | Phone | + +------+ + | Yrn Buckley MD | PCP | | + +------+ + Encounter Details +--------+---------+ + + + | Date | Type | Department | Care Team | Description | +--------+---------+ + + + | 11/13/ | Office | [facility] | Eros Rothman MD | CKD (chronic kidney | | 2020 | Visit | NEPHROLOGY [place] | [address] [place] | disease) stage 5, | | | | [address] | [address] [place], [place] | GFR less than 15 | | | | [address] | [address] | ml/min (HCC) | | | | [place], [place] | | (Primary Dx); Anemia | | | | [address] | | of chronic kidney | | | | [phone] | | failure, stage 5 | | | | | | (HCC); Nephrotic | | | | | | range proteinuria; | | | | | | Metabolic acidosis; | | | | | | At high risk for | | | | | | electrolyte | | | | | | imbalance; Essential | | | | | | hypertension; | | | | | | Hyperphosphatemia | +--------+---------+ + + + Social History + +-------+ [...] + + + | Blood Pressure | 158/100 | 11/13/2019 4:55 PM | | | | | PST | | + + + + + | Pulse | 92 | 11/13/2019 4:55 PM | | | | | PST | | + + + + + | Temperature | - | - | | + + + + + | Respiratory Rate | - | - | | + + + + + | Oxygen Saturation | - | - | | + + + + + | Inhaled Oxygen | - | - | | | Concentration | | | | + + + + + | Weight | 93.1 kg (205 lb 3.2 | 11/13/2019 4:55 PM | | | | oz) | PST | | + + + + + | Height | 182.9 cm (6') | 11/13/2019 4:55 PM | | | | | PST | | + + + + + | Body Mass Index | 27.83 | 11/13/2019 4:55 PM | | | | | PST | | + + + + + documented in this encounter Patient Instructions Patient Instructions Eros Rothman MD - 11/13/2019 4:40 PM PSTDiscussions/Recommendations : I discussed today with Mr. Henley the meaning of his severe CKD and the interaction of that with his DM & HTN. I stressed the importance of keeping his BG & BP controlled and avoiding getting dehydra kalani if we are to have a chance at helping preserve his renal function. He showed good under standing. I gave him instructions on how to chart his blood pressure in the appropriate manner at home. He is to call us if they fall outside of the optimal provided range. He will bring his sphygmomanometer for validation once a year. He will strictly abide by a low salt, low potassium, low purine diet. He will avoid all kinds of NSAIDs for analgesia. Also: I sent him to the ED right now (worsening uremia: metabolic acidosis, hyperphosphatemia, nausea; worsening anemia). I kept him off of his Lisinopril. I again sent him for a renal & bladder U/S SARA (he hadn't had one done yet). He seems to be invested in his healthcare now & wants to be helped & get better. So we w ill go with the renal plan as detailed here. I see no need for acute PETAL SHAPER HAND at this time. I sent him for a repeat RFP, CBC in 2 weeks. He will report back to me his home BP readings in 2 weeks. At that time, I will decide w hether any change to his vasoactive regimen is warranted. He will F/U with your office regularly. He will have a RFP, CBC, Iron studies, Ferritin, intact PTH, uric acid, Urine total prot qbm-mu-[id number] ratio before he comes back in 1 month. documented in this encounter Progress Notes Eros Rothman MD - 11/13/2019 4:40 PM PST Patient Active Problem List Diagnosis Date Noted POA CKD (chronic kidney disease) stage 5, GFR less than 15 ml/min 10/09/2019 Unknown Type 2 diabetes mellitus with diabetic nephropathy, with long-term current use of insul in 10/09/2019 Unknown Nephrotic range proteinuria 10/09/2019 Unknown Anemia of chronic kidney failure, stage 5 10/09/2019 Unknown Hyperkalemia 10/09/2019 Unknown Metabolic acidosis 10/09/2019 Unknown Hyperuricemia 10/09/2019 Unknown At high risk for electrolyte imbalance 10/09/2019 Unknown Essential hypertension 10/06/2018 Unknown Mixed hyperlipidemia 10/06/2018 Unknown Type 1 diabetes mellitus with hyperglycemia 10/06/[address] Buckley: I saw your patient Mr. Henley in the office today. As you are familiar with his case, I will not state his past history in detail. Briefly, he is a 49 y.o. male patient with past histo ry as delineated above. He is here to be evaluated for a declining GFR. On 02/13/2019, his sCr & eGFR were 3.03 & 22. The patient has history of hypertension since his early 40's, Diabetes Mellitus since his e denise '. His BG and BP control has been reportedly inadequate. He denies any history of pr olonged exposure to NSAIDs or recent exposure to known nephrotoxins. He denies any recurrent nephrolithiasis or pyelonephritis. he tells me that He's had no history of urinary retentio n, gross hematuria or dysuria. He has no incontinence symptoms. No symptoms of UTI. No histo ry of frequency, weak urinary stream, hesitancy, intermittence, incomplete emptying or urgen cy. He has 2 or 3 nightly nocturia. No history of passing kidney stones. He has no foamy ur ine either. His baseline Creatinine is TBD. There is no family history of renal genetic dise ases such as PKD. He says that he feels 'good ' today. He denies any blurred vision tinnitus, headache, feve r, chills, or cough. He has occasional vomiting in the morning, but he manages 3 times a da y. No anorexia. No nausea, abdominal pain, diarrhea, melena, or hematochezia. No chest pain , palpitation, dizziness, loss of consciousness, orthopnea, paroxysmal nocturnal dyspnea, or leg edema. He has imbalance because of inability to control his feet. This made him fall a few times. No recent LOC. The following portions of the patient's history were reviewed and updated as appropriate: a llergies, current medications, past medical history, past social history, past surgical hist ory, family history and problem list. As in History of Present Illness & in Assessment. All the pertinent systems were reviewed a nd were otherwise negative. Active comorbid conditions include: - hypertension; essential; with renal disease; with CKD stage 5 or ESRD - renal disease; proteinuria; CKD; Stage 5 - endocrine problem - diabetes; type 2; uncontrolled (Hgb A1C >= 6.5); with complications - anemia; chronic Current Outpatient Medications: atorvaSTATin (LIPITOR) 20 mg tablet, Take 20 mg by mouth nightly., Disp: , Rfl: insulin - MIX insulin NPH-insulin regular 70/30 (HUMULIN 70/30) 100 units/mL injection , Inject into the skin 2 (two) times daily before meals., Disp: , Rfl: lisinopril (PRINIVIL,ZESTRIL) 40 MG tablet, Take 40 mg by mouth daily. (Patient not mariusz lyndsey: Reported on 11/13/2019), Disp: , Rfl: metoprolol succinate (TOPROL-XL) 50 mg 24 hr tablet, Take 50 mg by mouth daily., Disp: , Rfl: *he tells me he also takes a diuretic - which he could not remember.* Physical Exam: BP (!) 158/100 | Pulse 92 | Ht 1.829 m (6') | Wt 93.1 kg (205 lb 3.2 oz) | BMI 27.83 kg /m General appearance: Pleasant, not in acute distress. Neck: Supple without tracheal deviation or jugular venous distension. Head and ENT: Head is atraumatic. The oropharynx is without erythema or thrush. Eyes: Anicteric. The extraocular muscle movements are normal. Lungs: Clear to auscultation bilaterally. There are no wheezes. Heart: Regular rate and rhythm without any rub, gallop. No systolic murmur. Abdominal exam: Soft and nontender with normal bowel sounds. Musculoskeletal: No costovertebral angle tenderness bilaterally. Extremities: Warm to touch with trace right leg edema. There is no cyanosis. Skin: There are no rashes, petechiae, or ecchymosis. Scattered ulcers on his arms, differe nt stages of healing. Neurological: Awake, alert, and oriented to time, place, and person. Normal gross motor po wer. There is no asterixis. Psychiatric: The patient s behavior is normal. Judgment and thought content are normal. Lab Results Component Value Date HGB 8.7 (A) 10/03/2019 HGB 10.9 (A) 02/10/2019 NA 134 11/10/2019 K 4.9 11/10/2019 CL 107 11/10/2019 CO2 13 (A) 11/10/2019 BUN 100 (A) 11/10/2019 CREA 9.34 (A) 11/10/2019 CALCIUM 8.4 (A) 11/10/2019 ALBUMIN 3.4 (A) 11/10/2019 EGFR 6.0 (A) 11/10/2019 PTH 74.87 (A) 02/13/2019 LABPROT 3,749.7 (A) 11/10/2019 No results for input(s): BUN, CREA, EGFR, NA, K, CL, CO2, CALCIUM, PHOS, MG, ALBUMIN, HGB, HCT, IRON in the last 72 hours. No components found for: MALBRX No components found for: MICROALBUR Assessment: Mr. Henley is a 49 y.o. male patient with stage V CKD on a background of long standing diabete s & hypertension. The most likely pathology here is that of diabetic nephropathy +/- hyperte nsive nephrosclerosis/arteriolosclerosis. RENAL FUNCTION: Severely low GFR vs 02/2019 BLOOD PRESSURE: uncontrolled BLOOD SUGAR: Reports it uncontrolled ELECTROLYTES: Abnormal: -Mild hyperkalemia (severely low GFR; being on Lisinopril; not watching the potassium in his diet) -Mild metabolic acidosis (low GFR) ANEMIA: Moderate; associated with his severe CKD VITAMIN D: To be checked thru your office PARATHYROID HORMONE: To be checked URIC ACID: Up PROTEINURIA: Severe: nephrotic range URINALYSIS: No significant hematuria; No UTI. VOLUME STATUS: Euvolumic. Discussions/Recommendations: I discussed today with Mr. Henley the meaning of his severe CKD and the interaction of that with his DM & HTN. I stressed the importance of keeping his BG & BP controlled and avoiding getting dehydra kalani if we are to have a chance at helping preserve his renal function. He showed good under standing. I gave him instructions on how to chart his blood pressure in the appropriate manner at home. He is to call us if they fall outside of the optimal provided range. He will bring his sphygmomanometer for validation once a year. He will strictly abide by a low salt, low potassium, low purine diet. He will avoid all kinds of NSAIDs for analgesia. Also: I sent him to the ED right now (worsening uremia: metabolic acidosis, hyperphosphatemia, nausea; worsening anemia). I kept him off of his Lisinopril. I again sent him for a renal & bladder U/S SARA (he hadn't had one done yet). He seems to be invested in his healthcare now & wants to be helped & get better. So we w ill go with the renal plan as detailed here. I see no need for acute PETAL SHAPER HAND. I sent him for a repeat RFP, CBC in 2 weeks. He will report back to me his home BP readings in 2 weeks. At that time, I will decide w hether any change to his vasoactive regimen is warranted. He will F/U with your office regularly. He will have a RFP, CBC, Iron studies, Ferritin, intact PTH, uric acid, Urine total prot rda-ah-[id number] ratio before he comes back in [address] Buckley for the opportunity to see this patient in F/U on an urgent basis todixon yousif. Please do not hesitate to call me at any time with questions or concerns. Truly yours, Eros Rothman MD [facility] documented in this enco unter Plan of Treatment +--------+---------+ + + + | Date | Type | Specialty | Care Team | Description | +--------+---------+ + + + | 12/18/ | Office | Nephrology | Eros Rothman MD | | 2019 | Visit | | [address] [facility] | | | | | | [address] [place], [place] | | | | | | [address] | | | | | | | | +--------+---------+ + + + documented as of this encounter Visit Diagnoses + + | Diagnosis | + + | CKD (chronic kidney disease) stage 5, GFR less than 15 ml/min ([facility]) - Primary Chronic | | kidney disease, Stage V | + + | Anemia of chronic kidney failure, stage 5 ([facility]) | + + | Nephrotic range proteinuria Proteinuria | + + | Metabolic acidosis Acidosis | + + | At high risk for electrolyte imbalance | + + | Essential hypertension Unspecified essential hypertension | + + | Hyperphosphatemia Disorders of phosphorus metabolism | + + documented in this encounter"
--- OUTSIDE RECORDS SUMMARY | ~2019-11-13 | XMS | Encounter Summary ---
Demographics + + + | Address | [address] | | | [place] [address] | + + + | Home Phone | | + + + | Preferred Language | Unknown | + + + | Marital Status | Unknown | + + + | Pentecostalism Affiliation | Unknown | + + + | Race | Unknown | + + + | Ethnic Group | Unknown | + + + Author + + + | Author | [facility] | | | and [place] | + + + | Organization | [facility] | | | [...] [place] | | | | | [address] | | + + + + + Care Team Providers + +------+ + | Care Student Accounts Manager Name | Role | Phone | + +------+ + | Yrn Buckley MD | PCP | | + +------+ + Encounter Details +--------+ + + + + | Date | Type | Department | Care Team | Description | +--------+ + + + + | 10/09/ | Orders Only | [facility] | Eros Rothman MD | CKD (chronic kidney | | 2019 | | NEPHROLOGY [place] | [address] [place] | disease) stage 5, | | | | [address] | [address] [place], [place] | GFR less than 15 | | | | [address] | [address] | ml/min (HCC) | | | | [place], [place] | | (Primary Dx); | | | | [address] | | Nephrotic range | | | | [phone] | | proteinuria; Anemia | | | [...] | Visit | | [address] [facility] | | | | | | [address] [place], [place] | | | | | | [address] | | | | | | | [...] | | | | than 15 ml/min ([facility]) | | | | | | Nephrotic [...] | | | | than 15 ml/min ([facility]) | | | | | | Nephrotic [...] | | | | than 15 ml/min ([facility]) | | | | | | Nephrotic [...] | | | | than 15 ml/min ([facility]) | | | | | | Nephrotic [...] | | | | than 15 ml/min ([facility]) | | | | | | Nephrotic [...] | | | | than 15 ml/min ([facility]) | | | | | | Nephrotic [...] | | | | than 15 ml/min ([facility]) | | | | | | Nephrotic range | | | | | | proteinuria Anemia | | | | | | of chronic kidney | | | | | | failure, stage 5 | | | | | | ([facility]) | | + +---------+--------+ + + | Parathyroid Hormone, | Lab | Routin | CKD (chronic | Expected: | | Intact | | e | kidney disease) | 11/09/2019, Expires: | | | | | stage 5, GFR less | 10/09/2020 | | | | | than 15 ml/min ([facility]) | | | | | | Nephrotic [...] | | | | than 15 ml/min ([facility]) | | | | | | Nephrotic range | | | | | | proteinuria | | + +---------+--------+ + + | Immunofixation, | Lab | Routin | CKD (chronic | Expected: | | Serum | | e | kidney disease) | 11/09/2019, Expires: | | | | | stage 5, GFR less | 10/09/2020 | | | | | than 15 ml/min ([facility]) | | | | | | Nephrotic [...] | | | | than 15 ml/min ([facility]) | | | | | | Nephrotic range | | | | | | proteinuria | | + +---------+--------+ + + documented as of this encounter Visit Diagnoses + + | Diagnosis | + + | CKD (chronic kidney disease) stage 5, GFR less than 15 ml/min ([facility]) - Primary Chronic | | kidney disease, Stage V | + + | Nephrotic range proteinuria Proteinuria | + + | Anemia of chronic kidney failure, stage 5 (HCC) | + + documented in this encounter"
--- OUTSIDE RECORDS SUMMARY | ~2019-11-13 | XMS | Encounter Summary ---
Demographics + + + | Address | [address] | | | [place] [address] | + + + | Home Phone | | + + + | Preferred Language | Unknown | + + + | Marital Status | Unknown | + + + | Jain Affiliation | Unknown | + + + [...] [place] | | | | | [address] | | + + + + + Care Team Providers + +------+ + | Care Grinding Machine Operator Automatic Name | Role | Phone | + +------+ + | Yrn Buckley MD | PCP | | + +------+ + Encounter Details +--------+ + + + + | Date | Type | Department | Care Team | Description | +--------+ + + + + | 06/23/ | Orders Only | [facility] | Eros Rothman MD | Kidney failure | | 2019 | | NEPRHOLOGY [place] | [address] [place] | | | | | [address] | [address] [place], [place] | | | | | [address] [place], [place] | [address] | | | | | [address] | | | | | | [phone] | | | +--------+ + + + [...] 2019 | Visit | | [address] [facility] [place] | | | | | | [address] [facility] [place] | | | | | | [address] | | | | | | | [...]
--- OUTSIDE RECORDS SUMMARY | ~2019-11-13 | XMS | Clinical Summary ---
Demographics + + + | Address | [address] | | | [place] [address] | + + + | Home Phone | | + + + | Preferred Language | Unknown | + + + | Marital Status | Unknown | + + + | Oriental Orthodox Affiliation | Unknown | + + + [...] Message Detailed | ECON | [address] | | | | | [place] | | | | | [address] | | + + + + + Care Team Providers + +------+ + | Care Bedspread Seamer Name | Role | Phone | + [...] skin 2 (two) times | | | /20 | | e | | regular 70/30 | daily before meals. | | | 19 | | | | (HUMULIN 70/30) 100 | | | | | | | | units/mL injection | | | | | | | + + + +---------+------+------+-------+ | metoprolol | Take 50 mg by mouth | | 0 | 07/1 | | Activ | | succinate | daily. | | | 1/20 | | e | | (TOPROL-XL) 50 mg 24 | | | | 19 | | | | hr tablet | | | | | | | + + + +---------+------+------+-------+ | atorvaSTATin | Take 20 mg by mouth | | 0 | 07/1 | | Activ | | (LIPITOR) 20 mg | nightly. | | | 1/20 | | e | | tablet | | | | 19 | | | + + + +---------+------+------+-------+ | lisinopril | Take 40 mg by mouth | | 0 | 05/08 | | Disco | | (PRINIVIL,ZESTRIL) | daily. | | | 11/27 | 04/27 | ntinu | | 40 MG tablet | | | | | 20 | ed | | | | | | | | (Ther | | | | | | | | apy | | | | | | | | compl | | | | | | | | eted) | + + + +---------+------+------+-------+ Active Problems + + + | Problem | Noted Date | + + + | Hyperphosphatemia | [...] hyperglycemia | 10/06/2018 | + + + Encounters +--------+ + + + + | Date | Type | Specialty | Care Team | Description | +--------+ + + + + | 11/13/ | Office | Nephrology | Eros Rothman MD | CKD (chronic kidney | | 2020 | Visit | | | disease) stage 5, | | | | | | GFR less than 15 | | | | | | ml/min (HCC) | | | | | | (Primary Dx); Anemia | | | | | | of chronic kidney | | | | | | failure, stage 5 | | | | | | ([facility]); Nephrotic | | | | | | range proteinuria; | | | | | | Metabolic acidosis; | | | | | | At high risk for | | | | | | electrolyte | | | | | | imbalance; Essential | | | | | | hypertension; | | | | | | Hyperphosphatemia | +--------+ + + + + | 11/13/ | Documentati | Nephrology | Arun Garcia (11/10/19) | | 2020 | on | | Rayne Humphrey | | | | | | General I Farmworker | | +--------+ + + + + | 10/13/ | Documentati | Nephrology | Garcia, | Other ([place] | | 2019 | on | | Rayne Humphrey | retroperitoneal | | | | | General I Farmworker | 07/26/19) | +--------+ + + + + | 10/10/ | Documentati | Nephrology | Jose, | Other (07/26/19 | | 2018 | on | | Rayne Humphrey | Renal us) | | | | | General I Farmworker | | +--------+ + + + + | 10/09/ | Office | Nephrology | Eros Rothman MD | CKD (chronic kidney | | 2018 | Visit | | | disease) stage 5, | | | | | | GFR less than 15 | | | | | | ml/min ([facility]); 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, with | | | | | | long-term current | | | | | | use of insulin | | | | | | ([facility]); Nephrotic | | | | | | range proteinuria; | | | | | | Anemia of chronic | | | | | | kidney failure, | | | | | | stage 5 ([facility]); | | | | | | Hyperkalemia; | | | | | | Metabolic acidosis; | | | | | | Hyperuricemia; At | | | | | | high risk for | | | | | | electrolyte | | | | | | imbalance | +--------+ + + + + | 10/09/ | Orders Only | Nephrology | Eros Rothman MD | CKD (chronic kidney | | 2018 | | | | disease) stage 5, | | | | | | GFR less than 15 | | | | | | ml/min ([facility]) | | | | | | (Primary Dx); | | | | | | Nephrotic range | | | | | | proteinuria; Anemia | | | | | | of chronic kidney | | | | | | failure, stage 5 | | | | | | ([facility]) | +--------+ + + + + | 10/09/ | Documentati | Nephrology | Arun Garcia (10/03/19) | | 2019 | on | | Rayne Humphrey | | | | | | General I Farmworker | | +--------+ + + + + from [...] recent travel history available. | + + Last Filed Vital Signs + [...] 2019 | Visit | | [facility] | | | | | | [address] [place] | | | | | | [address] | | | | | | | | +--------+---------+ + + + + + + + + | Health Maintenance | Due Date | Last Done | Comments | + + + + + | Vaccine: | | | | | Pneumococcal 19-64 | 5 | | | | (1 of 3 - PCV13) | | | | + + + + + | Vaccine: | | | | | Dtap/Tdap/Td (1 - | 0 | | | | Tdap) | | | | + + + + + | Diabetic Eye Exam | | | | | | 7 | | | + + + + + | Diabetic Foot Exam | | | | | | 7 | | | + + + + + | Hemoglobin A1c | | 02/10/2019 | | | Screening | 9 | [...] + + | Vaccine: Influenza | | 07/19/2018, 07/19/2018, | | | (#1) | 9 | 02/22/2018, Additional history | | | | | exists [...] | LABS - EXTERNAL SCAN | | 10/03/2019 | | Results for this | | | | 12:00 AM | | procedure are in the | | | | PST | | results section. | + +--------+ + + + | LABS - EXTERNAL SCAN | | 10/03/2019 | | Results for this [...] + + from Last 3 Months Results External Lab: PTH, Intact (11/10/2019) + + [...] | + + | | + + Immunofixation, Serum (11/10/2019) + +-------+ + + [...] + + | Blood | + + CBC with Manual Differential (11/10/2019)Only the most recent of 2 results within the time period is included. + + + + + + | [...] + + | Blood | + + [place] and Lambda Light Chain Ratio (11/10/2019) + [...] + + | Urine | + + Renal Function Panel (11/10/2019) [...] + + | Blood | + + LABS - EXTERNAL SCAN (10/03/2019 12:00 AM PST)Only the most recent of 2 results within the time period is included. + + + | Narrative | Performed At | + + + | Ordered by an | | | unspecified provider. | | + + + Urinalysis (10/03/2019) + + + [...] 1.001 - 1.030 | | | | [place] | | | | | + + [...] + + | Urine | + + Culture, Urine (10/03/2019) + + + + [...] + + | Urine | + + Uric Acid (10/03/2019) + [...] + + | Blood | + + from Last 3 Months Insurance [...] | [employer] | MODA | [id number] | | [phone] | | Medica | | MEDICAID HMO | HEALTH | | [id number]-Pr | 1 | | id | | | MDCD | | esent | | | | | | [place] | | | | | | + +--------+ +--------+ +---------+--------+ | [employer] | MODA | [id number] | 06/11/20 | [phone] | | Medica | | MEDICAID HMO [...] | Self | [birth year] | | [address] | | | al/Fam | | 1969 | [phone] | [place], [place] | | | [place] | | | 2 (Home) | [address] | + +--------+ +--------+ + + | Jude Henley | Person | Self | [birth year]/ | | [address] | | | al/Fam | | 1969 | [address] | [place], [place] | | | [place] | | | 2 (Home) | [address] | + +--------+ +--------+ + + Advance Directives + + + + + | Type | Date Recorded | Patient | Explanation | | | | International Sourcing Manager | | + + + + + | Power of | | | | | Cement Side Laster | | | | + + + + + | Advance | | | | | Directive | | | | + + + + +"
--- OUTSIDE RECORDS SUMMARY | ~2019-11-13 | XMS | Clinical Summary ---
Demographics + + + | Address | [address] | | | [place] [address] | + + + | Home Phone | | + + + | Preferred Language | Unknown | + + + | Marital Status | Unknown | + + + | Evangelical Affiliation | Unknown | + + + | Race | Unknown | + + + | Ethnic Group | Unknown | + + + Author + + + | Author | [email or web address] (Historical as of | | | 06-24-19) | + + + | Organization | [email or web address] (Historical as of | | | 06-24-19) [...] [place] | | | | | [address] | | + + + + + Care Team Providers + +------+ + | Care System Controller Name | Role | Phone | + +------+ + | Yrn Buclkey MD | PP | | + +------+ [...] +------+-------+ + | MEDICAID | [place] | [id number] | | | [address] | | | [place] | | | | [place] | | | [place] | | | | [address] | | | [employer] | | | | | + +--------+ [...] | | | [place] | | | [address] | [address] | + +--------+ +--------+ + +"
--- OUTSIDE RECORDS SUMMARY | ~2019-11-13 | XMS | Encounter Summary ---
Demographics + + + | Address | [address] | | | [place] [address] | + + + | Home Phone | | + + + | Preferred Language | Unknown | + + + | Marital Status | Unknown | + + + | Christian Affiliation | Unknown | + + + [...] [place] | | | | | [address] | | + + + + + Care Team Providers + +------+ + | Care Rehabilitation Specialist Name | Role | Phone | + +------+ + | Yrn Buckley MD | PCP | | + +------+ + Reason for Visit +--------+ + | Reason | Comments | +--------+ + | Other | Appointment reminder call | +--------+ + Encounter Details +--------+ + + + + | Date | Type | Department | Care Team | Description | +--------+ + + + + | 07/24/ | Telephone | [facility] | Eros Rothman MD | Other (Appointment | | 2019 | | NEPHROLOGY [place] | [address] [place] | reminder call) | | | | [address] [place] | [address] [place] | | | | | [address] [place] | [address] | | | | | [address] | | | | | | [phone] | | | +--------+ + + + [...] 2020 | Visit | | [address] [facility] | | | | | | [address] [place] | | | | | | [address] | | | | | | | | +--------+---------+ + + + documented as of this encounter Visit Diagnoses Not on filedocumented in this encounter"
--- OUTSIDE RECORDS SUMMARY | ~2019-11-13 | XMS | Encounter Summary ---
Demographics + + + | Address | [address] | | | [place] [address] | + + + | Home Phone | | + + + | Preferred Language | Unknown | + + + | Marital Status | Unknown | + + + | Denominational Affiliation | Unknown | + + + | Race | Unknown | + + + | Ethnic Group | Unknown | + + + Author + + + | Author | [facility] | | | and [place] | + + + | Organization | [facility] | | | [...] [place] | | | | | [address] | | + + + + + Care Team Providers + +------+ + | Care Farm Equipment Engineer Name | Role | Phone | [...] + + | 07/24/ | Telephone | [facility] | Eros Rothman MD | Other (Appointment | | 2019 | | NEPHROLOGY [place] | [address] [place] | reminder call) | | | | [address] [place] | [address] [place] | | | | | [address] [place] | [address] | | | | | [address] | | | | | | [phone] | | | +--------+ + + + [...] 2020 | Visit | | [address] [facility] | | | | | | [address] [place] | | | | | | [address] | | | | | | | | +--------+---------+ + + + documented as of this encounter Visit Diagnoses Not on filedocumented in this encounter"
--- OUTSIDE RECORDS SUMMARY | ~2019-11-13 | XMS | Encounter Summary ---
Demographics + + + | Address | [address] | | | [place] [address] | + + + | Home Phone | | + + + | Preferred Language | Unknown | + + + | Marital Status | Unknown | + + + | Zoroastrian Affiliation | Unknown | + + + | Race | Unknown | + + + | Ethnic Group | Unknown | + + + Author + + + | Author | [facility] | | | and [place] | + + + | Organization | [facility] | | [...] [place] | | | | | [address] | | + + + + + Care Team Providers + +------+ + | Care Professor Of History Name | Role | Phone | + [...] + + | 10/09/ | Documentati | [facility] | Garcia, | Results (10/03/19) | | 2019 | on | NEPHROLOGY [place] | [facility] | | | | | [address] | Bull Gang Worker | | | | | [address] [facility] | | | | | | [place] | | | | | | [address] | | | | | | [phone] | | | +--------+ + + + [...] 2020 | Visit | | [address] [facility] | | | | | | [address] [place] | | | | | | [address] | | | | | | | [...] 1.001 - 1.030 | | | | [place] | | | | | + + [...]
--- OUTSIDE RECORDS SUMMARY | ~2019-11-13 | XMS | Encounter Summary ---
Demographics + + + | Address | [address] | | | [place] [address] | + + + | Home Phone | | + + + | Preferred Language | Unknown | + + + | Marital Status | Unknown | + + + | Buddhism Affiliation | Unknown | + + + | Race | Unknown | + + + | Ethnic Group | Unknown | + + + Author + + + | Author | [facility] | | | and [place] | + + + | Organization | [facility] | | [...] [place] | | | | | [address] | | + + + + + Care Team Providers + +------+ + | Care Dynamite Cartridge Crimper Name | Role | Phone | + +------+ + | Yrn Buckley MD | PCP | | + +------+ + Reason for Visit + + + | Reason | Comments | + + + | Referral | status | + + + Encounter Details +--------+ + + + + | Date | Type | Department | Care Team | Description | +--------+ + + + + | 07/24/ | Telephone | [facility] | Kamari Mendoza, | Referral (status ) | | 2019 | | [facility] | [address] | | | | | PHYSICAL MEDICINE | [address] | | | | | AND REHABIL[facility] | [place] [address] | | | | | [address] [place] | [phone] | | | | | [place] | | | | | | [address] | | | | | | [phone] | | | +--------+ + + + [...] 2020 | Visit | | [address] [facility] | | | | | | [address] [place] | | | | | | [address] | | | | | | | | +--------+---------+ + + + documented as of this encounter Visit Diagnoses Not on filedocumented in this encounter"
--- OUTSIDE RECORDS SUMMARY | ~2019-11-13 | XMS | Encounter Summary ---
Demographics + + + | Address | [address] | | | [place] [address] | + + + | Home Phone | | + + + | Preferred Language | Unknown | + + + | Marital Status | Unknown | + + + | Hinduism Affiliation | Unknown | + + + | Race | Unknown | + + + | Ethnic Group | Unknown | + + + Author + + + | Author | [facility] | | | and [place] | + + + | Organization | [facility] | | [...] [place] | | | | | [address] | | + + + + + Care Team Providers + +------+ + | Care Senior Web Architect Name | Role | Phone | [...] + + | 10/10/ | Documentati | [facility] | Garcia, | Other (07/26/19 | | 2019 | on | NEPHROLOGY [place] | Rayne Humphrey | Renal us) | | | | [address] | Director Of Event Management | | | | | [address] | | | | | | [place] | | | | | | [address] | | | | | | [phone] | | | +--------+ + + + [...] 2020 | Visit | | [facility] [address] [facility] | | | | | | [address] [facility] [place] | | | | | | [address] | | | | | | | | +--------+---------+ + + + documented as of this encounter Visit Diagnoses Not on filedocumented in this encounter"
--- OUTSIDE RECORDS SUMMARY | ~2019-11-13 | XMS | Clinical Summary ---
Demographics + + + | Address | [address] | | | [place] [address] | + + + | Home Phone | | + + + | Preferred Language | Unknown | + + + | Marital Status | Unknown | + + + | Yazidi Affiliation | Unknown | + + + | Race | Unknown | + + + | Ethnic Group | Unknown | + + + Author + + + | Author | [facility] | | | and [place] | + + + | Organization | [facility] | | [...] [place] | | | | | [address] | | + + + + + Care Team Providers + +------+ + | Care Countersinker Balance Screw Hole Name | Role | Phone | + [...] 5 | | | | | | ([facility]); Nephrotic | | | | | [...] Humphrey | | | | | | Car Rental Manager | | +--------+ + + + + | 10/13/ | Documentati | Nephrology | Garcia, | Other ([place] | | 2019 | on | | Rayne Humphrey | retroperitoneal | | | | | Car Rental Manager | 07/26/19) | +--------+ + + + + | 10/10/ | Documentati | Nephrology | Jose, | Other (07/26/19 | | 2018 | on | | Rayne Humphrey | Renal us) | | | | | Car Rental Manager | | +--------+ + + + + | 10/09/ | Office | Nephrology | Eros Rothman MD | CKD (chronic kidney | | 2018 | Visit | | | disease) stage 5, | | | | | | GFR less than 15 | | | | | | ml/min ([facility]); 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, with | | | | | | long-term current | | | | | | use of insulin | | | | | | ([facility]); Nephrotic | | | | | | range proteinuria; | | | | | | Anemia of chronic | | | | | | kidney failure, | | | | | | stage 5 ([facility]); | | | | | | [...] | | | | | | ml/min ([facility]) | | | | | | (Primary Dx); | | | | | | Nephrotic range | | | | | | proteinuria; Anemia | | | | | | of chronic kidney | | | | | | failure, stage 5 | | | | | | ([facility]) | +--------+ + + + + | 10/09/ | Documentati | Nephrology | Arun Garcia (10/03/19) | | 2019 | on | | Rayne Humphrey | | | | | | Car Rental Manager | | +--------+ + + + + [...] [place] | | | | | | [address] | | | | | | | [...] + + | Blood | + + [place] and Lambda Light Chain Ratio (11/10/2019) + [...] 1.001 - 1.030 | | | | [place] | | | | | + + [...] | [employer] | MODA | [id number] | | [phone] | | Medica | | MEDICAID HMO | HEALTH | | 019-Pr | 1 | | id | | | MDCD | | esent | | | | | | [place] | | | | | | + +--------+ +--------+ +---------+--------+ | [employer] | MODA | [id number] | 06/11/20 | [phone] | | Medica | | MEDICAID HMO [...] [place] | | | 2 (Home) | [address] | + +--------+ +--------+ + + | Jude Henley | Person | Self | [birth year] | | [address] | | | al/Fam | | 1969 | [address] | [place], [place] | | | [place] | | | 2 (Home) | [address] | + +--------+ +--------+ + + Advance Directives + + + + + | Type | Date Recorded | Patient | Explanation | | | | Ict Sales Representative | | + + + + + | Power of | | | | | Blending Plant Operator | | | | + + + + + | Advance | | | | | Directive | | | | + + + + +"
--- OUTSIDE RECORDS SUMMARY | ~2019-11-13 | XMS | Encounter Summary ---
Demographics + + + | Address | [address] | | | [place] [address] | + + + | Home Phone | | + + + | Preferred Language | Unknown | + + + | Marital Status | Unknown | + + + | Holiness Affiliation | Unknown | + + + | Race | Unknown | + + + | Ethnic Group | Unknown | + + + Author + + + | Author | [facility] | | | and [place] | + + + | Organization | [facility] | | | [...] [place] | | | | | [address] | | + + + + + Care Team Providers + +------+ + | Care Verification Engineer Name | Role | Phone | + +------+ + PCP | Unavailable | + +------+ + Encounter Details +--------+ + + + + | Date | Type | Department | Care Team | Description | +--------+ + + + + | 04// | Orders Only | [facility] | Conversion | | | 2019 | | NEPHROLOGY [place] | Transaction, | | | | | [address] | Provider Unknown | | | | | [address] [place] | | | | | | [address] | (Fax) | | | | | [phone] | | | +--------+ + + + [...] 2019 | Visit | | [address] [facility] | | | | | | [address] [place], [place] | | | | | | [address] | | | | | | | [...] + + + + | Clarity | Clear | | EXTERNAL | | | | | | LAB | | + + + + + + | Specific | 1.009 | 1.005 - 1.030 | EXTERNAL | | | [place] | | | LAB | | + [...] + + + + + + | eGFR if not | | | EXTERNAL | | | | | | LAB | | | FINNISH | | | | | + + [...] + + + + + + | RED CELL | 3.90 (A) | 4.3 - 5.7 10 | EXTERNAL | | | COUNT | | | LAB | | + + + + + + | Hgb | 10.9 (A) | 13.5 - 18.0 [...] | + +-------+ + + + | LDL | 49 | 100 mg/dL | EXTERNAL | | | Cholesterol | | | LAB | | | , | | | | | | Calculated, | | | | | | External | | [...]
--- OUTSIDE RECORDS SUMMARY | ~2019-11-13 | XMS | Encounter Summary ---
Demographics + + + | Address | [address] | | | [place] [address] | + + + | Home Phone | | + + + | Preferred Language | Unknown | + + + | Marital Status | Unknown | + + + | Episcopal Affiliation | Unknown | + + + | Race | Unknown | + + + | Ethnic Group | Unknown | + + + Author + + + | Author | [facility] | | | and [place] | + + + | Organization | [facility] | | | and [...] [place] | | | | | [address] | | + + + + + Care Team Providers + +------+ + | Care Bait Man Name | Role | Phone | + [...] + + | 10/10/ | Documentati | [facility] | Garcia, | Other (07/26/19 | | 2019 | on | NEPHROLOGY [place] | Rayne Humphrey | Renal us) | | | | [address] | Aircraft Skin Burnisher | | | | | [address] | | | | | | [place] | | | | | | [address] | | | | | | [phone] | | | +--------+ + + + [...] | | | | | | [address] [facility] [place] | | | | | | [address] | | | | | | | | +--------+---------+ + + + documented as of this encounter Visit Diagnoses Not on filedocumented in this encounter"
--- OUTSIDE RECORDS SUMMARY | ~2019-11-13 | XMS | Encounter Summary ---
Demographics + + + | Address | [address] | | | [place] [address] | + + + | Home Phone | | + + + | Preferred Language | Unknown | + + + | Marital Status | Unknown | + + + | Sabianist Affiliation | Unknown | + + + | Race | Unknown | + + + | Ethnic Group | Unknown | + + + Author + + + | Author | [facility] | | | and [place] | + + + | Organization | [facility] | | | [...] [place] | | | | | [address] | | + + + + + Care Team Providers + +------+ + | Care Helper Metal Hanging Name | Role | Phone | + +------+ + PCP | Unavailable | + +------+ + Encounter Details +--------+ + + + + | Date | Type | Department | Care Team | Description | +--------+ + + + + | 04// | Orders Only | [facility] | Conversion | | | 2019 | | NEPHROLOGY [place] | Transaction, | | | | | [address] | Provider Unknown | | | | | [address] [place] | | | | | | [address] | (Fax) | | | | | [phone] | | | +--------+ + + + [...] 2019 | Visit | | [address] [facility] | | | | | | [address] [place], [place] | | | | | | [address] | | | | | | | [...] - 1.030 | EXTERNAL | | | [place] | | | LAB | | + [...] | | | LAB | | | [place] | | | | | + + [...]
--- OUTSIDE RECORDS SUMMARY | ~2019-11-13 | XMS | Encounter Summary ---
Demographics + + + | Address | [address] | | | [place] [address] | + + + | Home Phone | | + + + | Preferred Language | Unknown | + + + | Marital Status | Unknown | + + + | Zoroastrianism Affiliation | Unknown | + + + [...] [place] | | | | | [address] | | + + + + + Care Team Providers + +------+ + | Care Print And Pattern Designer Name | Role | Phone | + [...] | | | | | Unspecified | Arun Black MD [address] | | | | | kidney | [address] [place] | | | | | failure | [address] | [address] | | | | | | [place], | [place], [place] | | | | | | [place] [address] | [address] | | | | | | Phone: | Phone: | | | | | | [phone] | [phone] | | | | | | Fax: | Fax: | | | | | | [phone] | [phone] | +--------+--------+ + + + + Encounter Details +--------+---------+ + + + | Date | Type | Department | Care Team | Description | +--------+---------+ + + + | 10/09/ | Office | [facility] | Eros Rothman MD | CKD (chronic kidney | | 2019 | Visit | NEPHROLOGY [place] | [address] [place] | disease) stage 5, | | | | [address] | [address] [place], [place] | GFR less than 15 | | | | [address] [address] | [address] | ml/min ([facility]); 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 documented in this encounter Progress Notes Eros Rothman MD - 10/09/2019 4:20 PM PST There are no active problems to display for this patient. Dear Dr Buckley: Thank you for the opportunity to see Mr. Henley in consult today. As you are familiar with priscilla s case, I will not state his [...] file Gets together: Not on file Attends restorationist service: Not on file Active member of [...] get better. So we will go wit hthe plan below. I see no need for acute JUTE BAG CLIPPER. I decreased his Lisinopril from 40 mg [...] SPIE, SFLC, uric acid, Urin e total bzzvrtt-oe-jgtpbevuhc ratio before he comes back in [address] Buckley for the opportunity to see this patient in consult on an urgent basis today. Please do not hesitate to call me at any time with questions or concerns. Truly yours, Eros Rothman MD FACP [facility] documented in this enco unter Plan of Treatment +--------+---------+ + + + | Date | Type | Specialty | Care Team | Description | +--------+---------+ + + + | 12/18/ | Office | Nephrology | Eros Rothman MD | | | 2019 | Visit | | [address] [facility] | | | | | | [address] [place], [place] | | | | | | [address] | | | | | | | [...]
--- OUTSIDE RECORDS SUMMARY | ~2019-11-13 | XMS | Encounter Summary ---
Demographics + + + | Address | [address] | | | [place] [address] | + + + | Home Phone [...] [place] | | | | | [address] | | + + + + + Care Team Providers + +------+ + | Care Talent Analyst Name | Role | Phone | + +------+ + | Yrn Buckley MD | PCP | | + +------+ + Encounter Details +--------+---------+ + + + | Date | Type | Department | Care Team | Description | +--------+---------+ + + + | 11/13/ | Office | [facility] | Eros Rothman MD | CKD (chronic kidney | | 2020 | Visit | NEPHROLOGY [place] | [address] [place] | disease) stage 5, | | | | [address] | [address] [place], [place] | GFR less than 15 | | | | [address] [address] | [address] | ml/min (HCC) | | | | [place], [place] | | (Primary Dx); Anemia | | | | [address] | | of chronic kidney | | | | [phone] | | failure, stage 5 | | [...] here. I see no need for acute PRINTING SUPERVISOR at this time. I sent him for [...] intact PTH, uric acid, Urine total prot vax-rp-kvnvmzvjvy ratio before he comes back in 1 [...] here. I see no need for acute PRINTING SUPERVISOR. I sent him for a repeat RFP, CBC in 2 weeks. He will report back to me his home BP readings in 2 weeks. At that time, I will decide w hether any change to his vasoactive regimen is warranted. He will F/U with your office regularly. He will have a RFP, CBC, Iron studies, Ferritin, intact PTH, uric acid, Urine total prot dvb-vt-slvhtwatzo ratio before he comes back in [address]. [address] Buckley for the opportunity to see this patient in F/U on an urgent basis todixon yousif. Please do not hesitate to call me at any time with questions or concerns. Truly yours, Eros Rothman MD [facility] documented in this enco unter Plan of Treatment +--------+---------+ + + + | Date | Type | Specialty | Care Team | Description | +--------+---------+ + + + | 12/18/ | Office | Nephrology | Eros Rothman MD | | 2019 | Visit | | [address] [facility] | | | | | | [address] [place], [place] | | | | | | [address] | | | | | | | | +--------+---------+ + + + documented as of this encounter Visit Diagnoses + + | Diagnosis | + + | CKD (chronic kidney disease) stage 5, GFR less than 15 ml/min ([facility]) - Primary Chronic | | kidney disease, Stage V | + + | Anemia of chronic kidney failure, stage 5 ([facility]) | + + | Nephrotic range proteinuria Proteinuria | + + | Metabolic acidosis Acidosis | + + | At high risk for electrolyte imbalance | + + | Essential hypertension Unspecified essential hypertension | + + | Hyperphosphatemia Disorders of phosphorus metabolism | + + documented in this encounter"
--- OUTSIDE RECORDS SUMMARY | ~2019-11-13 | XMS | Encounter Summary ---
Demographics + + + | Address | [address] | | | [place] [address] | + + + | Home Phone | | + + + | Preferred Language | Unknown | + + + | Marital Status | Unknown | + + + | Cheondoism Affiliation | Unknown | + + + [...] [place] | | | | | [address] | | + + + + + Care Team Providers + +------+ + | Care Door Operator Name | Role | Phone | [...] + + | 10/13/ | Documentati | [facility] | Jose, | Other ( | | 2019 | on | NEPHROLOGY [place] | [facility] | retroperitoneal | | | | [address] | Toppiece Cutter | 07/26/19) | | | | [address] | | | | | | [place] | | | | | | [address] | | | | | | [phone] | | | +--------+ + + + [...] 2020 | Visit | | [address] [facility] | | | | | | [address] [place] | | | | | | [address] | | | | | | | | +--------+---------+ + + + documented as of this encounter Visit Diagnoses Not on filedocumented in this encounter"
--- OUTSIDE RECORDS SUMMARY | ~2019-11-13 | XMS | Encounter Summary ---
Demographics + + + | Address | [address] | | | [place] [address] | + + + | Home Phone | | + + + | Preferred Language | Unknown | + + + | Marital Status | Unknown | + + + | Restorationist Affiliation | Unknown | + + + [...] [place] | | | | | [address] | | + + + + + Care Team Providers + +------+ + | Care Clinical Laboratory Service Teacher Name | Role | Phone | [...] + | 07/24/ | Telephone | [facility] | Kamari Mendoza, | Referral (status ) | | 2019 | | [facility] | [address] | | | | | PHYSICAL MEDICINE | [address] | | | | | [facility] | [place] [address] | | | | | [address] | [phone] | | | | | [place] | | | | | | [address] | | | | | | [phone] | | | +--------+ + + + [...] 2020 | Visit | | [address] [facility] | | | | | | [address] [place] | | | | | | [address] | | | | | | | | +--------+---------+ + + + documented as of this encounter Visit Diagnoses Not on filedocumented in this encounter"
--- OUTSIDE RECORDS SUMMARY | ~2019-11-13 | XMS | Encounter Summary ---
Demographics + + + | Address | [address] | | | [place] [address] | + + + | Home Phone [...] [place] | | | | | [address] | | + + + + + Care Team Providers + +------+ + | Care Grab Driver Name | Role | Phone | [...] | | | | | | [place] [address] | [address] | | | | | | Phone: | Phone: | | | | | | [phone] | [phone] | | | | | | Fax: | Fax: | | | | | | [phone] | [phone] | +--------+--------+ + + + + Encounter Details +--------+---------+ + + + | Date | Type | Department | Care Team | Description | +--------+---------+ + + + | 10/09/ | Office | [facility] | Eros Rothman MD | CKD (chronic kidney | | 2019 | Visit | NEPHROLOGY [place] | [address] [place] | disease) stage 5, | | | | [address] | [address] [place], [place] | GFR less than 15 | | | | [address] [place] [address] | [address] | ml/min (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); Nephrotic | | | | | | range proteinuria; | | | | | | Anemia of chronic | | | | | | kidney failure, | | | | | | stage 5 ([facility]); | | | | | | [...] SPIE, SFLC, uric acid, Urin e total sjssoty-oa-utkjgjuwhz ratio before he comes back in 1 [...] file Gets together: Not on file Attends hoahaoism service: Not on file Active member of [...] below. 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 I decreased his Lisinopril from 40 mg [...] SPIE, SFLC, uric acid, Urin e total lszpkzc-tz-uxjinuzppe ratio before he comes back in [address] Buckley for the opportunity to see this patient in consult on an urgent basis today. Please do not hesitate to call me at any time with questions or concerns. Truly yours, Eros Rothman MD FACP [facility] documented in this enco unter Plan of Treatment +--------+---------+ + + + | Date | Type | Specialty | Care Team | Description | +--------+---------+ + + + | 12/18/ | Office | Nephrology | Eros Rothman MD | | | 2019 | Visit | | [address] [facility] | | | | | | [address] [place], [place] | | | | | | [address] | | | | | | | [...]
[~2019-11-13 17:57] MED LIST changes: +DOXYCYCLINE HY100 MG PO; +MUPIROCIN15 GM TOP; +NORVASC5 MG PO; +NOVOLIN 70100 UNIT/1 SUB-Q; +PRINIVIL10 MG PO
--- OUTSIDE RECORDS SUMMARY | 2019-11-13 18:00 | XMS ---
PreManage Notification: CELY PALMER Security Forensic Manager Events No recent Security Events currently on file CRITERIA MET - Group Notification - [facility] - Has Care Guidelines CARE PROVIDERS MOLLY YAÑEZ Internal Medicine 10/19/2018-Current PHONE: Unknown DR CABRERA Other 10/14/2016-Current PHONE: [phone] [facility] has no Care Guidelines for this patient. Care History Medical/Surgical 10/19/2018 [facility] - Patient is currently established with [facility]. If patient is seen in the ED during business hours. Please contact [facility]. Care Recommendation: This patient has had 5 or more Emergency Department visits in the last 12 months.\T\nbsp; Patient requires education on the scope and purpose of the ED as an acute care provider not a Primary Care Provider and should not be utilized for chronic conditions.\T\nbsp; These are guidelines and the provider should exercise clinical judgment when providing care. E.D. VISIT COUNT (12 MO.) 2 [facility] TOTAL 2 NOTE: Visits indicate total known visits. ED/UCC VISIT TRACKING (12 MO.) 11/13/2019 17:58 [facility] [place] TYPE: Emergency COMPLAINT: - KIDNEY PROBLEM 05/18/2019 12:26 [facility] [place] TYPE: Emergency COMPLAINT: - SWELLING OF NOSE DIAGNOSES: - Other specified disorders of nose and nasal sinuses - detention (current) use of insulin - 1 Type 2 diabetes mellitus without complications - Other manager intermediate (current) drug therapy - Essential (primary) hypertension - Acquired absence of other specified parts of digestive tract - Acne vulgaris - Personal history of nicotine dependence INPATIENT VISIT TRACKING (12 MO.) No inpatient visits to display in this time frame [email or web address]
[2019-11-13] MEDS ORDERED: ZOFRAN4 MG PO (20:40)
== END 2019-11-13 20:49 | disposition home or self-care (01) ==
LOC: ED 17:57
DX: I12.9 Hypertensive chronic kidney disease with stage 1 through stage 4 chronic kidney disease, or unspecified chronic kidney disease (principal); E11.22 Type 2 diabetes mellitus with diabetic chronic kidney disease; N18.9 Chronic kidney disease, unspecified; Z87.891 Personal history of nicotine dependence; Z79.899 Other long term (current) drug therapy; Z79.4 Long term (current) use of insulin
CPT/HCPCS: 76770; 80053; 85025; 99284-25

== ENCOUNTER 2020-07-31 21:09 | Emergency (ER) | payer OTHER ==
[~2020-07-31] VITALS: Ht 182.9 cm; Wt 86.2 kg
--- OUTSIDE RECORDS SUMMARY | ~2020-07-31 | XMS | Encounter Summary ---
Demographics + + + | Address | [address] | | | [place] [address] | + + + | Home Phone | | + + + | Preferred Language | Unknown | + + + | Marital Status | Single | + + + | Lutheran Affiliation | 1041 | + + + | Race | White | + + + | Ethnic Group | Not or | + + + Author + + + | Author | [facility] | | | and [place] | + + + | Organization | [facility] | | | and [place] | + + + | Address | Unknown | + + + | Phone | Unavailable | + + + Support + + +---------+ + | Name | Relationship | Address | Phone | + + +---------+ + | Rosaura Privjimmy | ECON | Unknown | | + + +---------+ + | Kadie Mancilla | ECON | Unknown | | + + +---------+ + Care Team Providers + +------+ + | Care Trade Marker Name | Role | Phone | + +------+ + | Yrn Buckley MD | PCP | | + +------+ + Encounter Details +--------+ + + + + | Date | Type | Department | Care Team | Description | +--------+ + + + + | 01/03/ | Prep for | [facility] | Cirilo Tijerina DNP | | | 2019 | Procedure | VASCULAR SURGERY | [address] | | | | | [address] [place] | [place], [place] | | | | | [place], [place] | [address] | | | | | [address] | | | | | | [phone] | | | +--------+ + + + + Social History + +-------+ +--------+------+ | Tobacco Use | Types | Packs/Day | Years | Date | | | | | Used | | + +-------+ +--------+------+ | Former Smoker | | | | | + +-------+ +--------+------+ + +---+---+---+ | Smokeless Tobacco: | | | | | Never Used | | | | + +---+---+---+ + + +---------+ + | Alcohol Use | Drinks/Week | oz/Week | Comments | + + +---------+ + | Not Currently | | | | + + +---------+ [...] Cardiology | Aditya Monzon, | | | 2020 | Visit | | MD [address] | | | | | | [place] | | | | | | [place] [address] | | | | | | [phone] | | | | | | | | +--------+---------+ + + + documented as of this encounter Visit Diagnoses Not on filedocumented in this encounter"
--- OUTSIDE RECORDS SUMMARY | ~2020-07-31 | XMS | Encounter Summary ---
Demographics + + + | Address | [address] | | | [place] [address] | + + + | Home Phone | | + + + | Preferred Language | Unknown | + + + | Marital Status | Single | + + + | Caodaism Affiliation | 1041 | + + + | Race | White | + + + | Ethnic Group | Not or | + + + Author + + + | Author | [facility] | | | and [place] | + + + | Organization | [facility] | | [...] Team Providers + +------+ + | Care Structural Design Engineer Name | Role | Phone | + +------+ + | Yrn Buckley MD | PCP | | + +------+ + Reason for Visit + +--------+ + | Reason | Onset | Comments | | | Date | | + +--------+ + | Referral | 12/18/ | | | | 2020 | | + +--------+ + Encounter Details +--------+ + + + + | Date | Type | Department | Care Team | Description | +--------+ + + + + | 12/18/ | Telephone | [facility] | Luca Mo MD | Referral | | 2020 | | VASCULAR SURGERY | [address] | | | | | [address] [place] | [place], [place] | | | | | [place], [place] | [address] | | | | | [address] | | | | | | [phone] | | | +--------+ + + + [...] Telephone Encounter - Rupal Black RN - 12/18/2019 3:00 PM PSTReturn call made to Giovanny lovelace, explain to Ramona that appointment this is for consult and not for surgery. She stated understanding and confirmed appointment for 12/21/[address] Gunter. elephone Encounter - Rasheed Nguyen - 12/18/2019 2:51 PM PSTSheila, is returning call for Referral and would like a call back. Additional Call Details: Returning call regarding surgery. Checking to see if you have an ything on Wednesday? [phone]. Ramona stated if there is nothing on Wednesday, will take the 12/21 ap pointment. elephone Encounter - Rupal Nixon RN - 12/18/2019 2:47 PM PSTLeft message for Ramona, spot held for patient f or 12/21 at 3:[address] Gunter. Awaiting call back from Ramona to confirm appointment. Ot er options available if patient cannot make given appointment. elephone Encounter - Rob Amin - 12/18 2:22 PM PSTSheila, is calling regarding Referral and would like a call back. Additional Call Details: Ramona, patients sister, Calling to schedule from Referral. Allegra nuno can be reached at [phone] If this is a symptom based call, was patient offered triage? Not Applicable If this is a symptom based call and you were unable to immediately transfer the call to a mikel varela meat and poultry inspector was caller made aware that if at [...] | | | | | | [place] [address] | | | | | | [phone] | | | | | | | | +--------+---------+ + + + documented as of this encounter Visit Diagnoses Not on filedocumented in this encounter"
--- OUTSIDE RECORDS SUMMARY | ~2020-07-31 | XMS | Encounter Summary ---
Demographics + + + | Address | [address] | | | [place] [address] | + + + | Home Phone | | + + + | Preferred Language | Unknown | + + + | Marital Status | Single | + + + | Jehovah'S Witness Affiliation | 1041 | + + + | Race | White | + + + | Ethnic Group | Not or | + + + Author + + + | Author | [facility] | | | and [place] | + + + | Organization | [facility] | | | and [...] Team Providers + +------+ + | Care Curtain Fitter Name | Role | Phone | + +------+ + | Yrn Buckley MD | PCP | | + +------+ + Reason for Visit +--------+ + | Reason | Comments | +--------+ + | Other | 07/26/19 Renal us | +--------+ + Encounter Details +--------+ + + + + | Date | Type | Department | Care Team | Description | +--------+ + + + + | 10/10/ | Documentati | [facility] | Jose, | Other (07/26/19 | | 2019 | on | NEPHROLOGY [place] | Rayne Humphrey | Renal us) | | | | [address] | Parking Meter Installer | | | | | [address] [address] | | | | | | [place] | | | | | | [address] | | | | | | [phone] | | | +--------+ + + + [...] | | | | | | [place] [address] | | | | | | [phone] | | | | | | | | +--------+---------+ + + + documented as of this encounter Visit Diagnoses Not on filedocumented in this encounter"
--- OUTSIDE RECORDS SUMMARY | ~2020-07-31 | XMS | Encounter Summary ---
Demographics + + + | Address | [address] | | | [place] [address] | + + + | Home Phone | | + + + | Preferred Language | Unknown | + + + | Marital Status | Single | + + + | Episcopal Affiliation | 1041 | + + + | Race | White | + + + | Ethnic Group | Not or | + + + Author + + + | Author | [facility] | | | and [place] | + + + | Organization | [facility] | | | and [...] Team Providers + +------+ + | Care Video And Sound Recorder Name | Role | Phone | + +------+ + | Yrn Buckley MD | PCP | | + +------+ + Reason for Visit + +--------+ + | Reason | Onset | Comments | | | Date | | + +--------+ + | Appointment | 12/25/ | | | | 2020 | | + +--------+ + Encounter Details +--------+ + + + + | Date | Type | Department | Care Team | Description | +--------+ + + + + | 12/25/ | Telephone | [facility] | Elpidio Gunter MD | Appointment | | 2020 | | VASCULAR SURGERY | [address] | | | | | [address] [place] | [place], [place] | | | | | [place], [place] | [address] | | | | | [address] | [phone] | | | | | [phone] | | | +--------+ + + + [...] this encounter Miscellaneous Notes Telephone Encounter - Rozina Rae - 12/25/2019 3:46 PM PSTRobert, is returning call for Appointment and would like a call back. Additional Call Details: Returning call. Please call home number elephone Dottie Patel, Commissioned Security Officer - 12/25/2019 3:37 PM PSTCalled patient per Agatham's o ffice request to get patient in for AVF instead of a PD cath. Pt will need a bilat mapping U S and consult with Dr Gunter. No answer and left message for a call back. documented in this encounter Plan of Treatment +--------+---------+ + + + | Date | Type | Specialty | Care Team | Description | +--------+---------+ + + + | 09/30/ | Office | Cardiology | Aditya Monzon, | | 2019 | Visit | | MD [address] | | | | | | [place], | | | | | | [place] [address] | | | | | | [phone] | | | | | | | | +--------+---------+ + + + documented as of this encounter Visit Diagnoses Not on filedocumented in this encounter"
--- OUTSIDE RECORDS SUMMARY | ~2020-07-31 | XMS | Encounter Summary ---
Demographics + + + | Address | [address] | | | [place] [address] | + + + | Home Phone | | + + + | Preferred Language | Unknown | + + + | Marital Status | Single | + + + | Anabaptist Affiliation | 1041 | + + + | Race | White | + + + | Ethnic Group | Not or | + + + Author + + + | Author | [facility] | | | and [place] | + + + | Organization | [facility] | | | [...] Team Providers + +------+ + | Care Soil Science Professor Name | Role | Phone | + [...] + + | 12/19/ | Telephone | [facility] | Kimberli Sandra | Other (IV Feraheme | | 2019 | | RON Ruiz RN | requires PA); Other | | | | [address] | | (IV Feraheme | | | | [address] [place], [place] | | authorized from | | | | [address] | | 12/19/19 - 03/18/20) | | | | [phone] | | | +--------+ + + + [...] - 12/25/2019 12:20 PM PSTReceived fax from [facility] Q0138 (Feraheme) is authorized from 12/19/19-03/18/20. Authorization # [id number].Electr onically signed by Kimberli Sandra RN at 12/25/2019 12:22 PM PSTTelephone Encounter - Milagro Barr Contour Band Saw Operator Vertical - 12/19/2019 3:44 PM PSTCalled patient to inform of thi s. He verbalized understanding and had no further questions at this time.Electronically sign ed by Milagro Garcia Contour Band Saw Operator Vertical at 12/19/2019 3:45 PM PSTTelephone Encounter - Kimberli Sandra RN - 12/19/2019 9:23 AM PSTCalled [facility] (P#[phone][facility] and spoke with Maggie. Provided CPT code Q0138 for outpatient IV Feraheme (510mg one dose only) and she sa id it does require a prior authorization. Call was transferred to [place] with medical intake . Provided Dr Rothman's NPI and that the medication would be administered at outpatient, off c ampus location of [facility] in [facility]. She requested chart notes to be faxed to the at [phone]. Chart notes and recent labs printed and [...] | | | | | | [place] [address] | | | | | | [phone] | | | | | | | | +--------+---------+ + + + documented as of this encounter Visit Diagnoses Not on filedocumented in this encounter"
--- OUTSIDE RECORDS SUMMARY | ~2020-07-31 | XMS | Encounter Summary ---
Demographics + + + | Address | [address] | | | [place] [address] | + + + | Home Phone | | + + + | Preferred Language | Unknown | + + + | Marital Status | Single | + + + | Christianity Affiliation | 1041 | + + + | Race | White | + + + | Ethnic Group | Not or | + + + Author + + + | Author | [facility] | | | and [place] | + + + | Organization | [facility] | | | [...] Team Providers + +------+ + | Care Pipe Fitter Maintenance Name | Role | Phone | + +------+ + | Yrn Buckley MD | PCP | | + +------+ + Reason for Visit + + + | Reason | Comments | + + + | Follow-up | | + + + Encounter Details +--------+---------+ + + + | Date | Type | Department | Care Team | Description | +--------+---------+ + + + | 04/10/ | Office | [facility] | Cirilo Tijerina DNP | ESRD on dialysis | | 2020 | Visit | VASCULAR SURGERY | [address] | (FORMERLY [facility]) (Primary Dx); | | | | [address] [place] | [place], [place] | AVF (arteriovenous | | | | [place], [place] | [address] | fistula) (FORMERLY [facility]) | | | | [address] | | | | | | [phone] | | | +--------+---------+ + + + [...] this encounter Last Filed Vital Signs + + + + + | Vital Sign | Reading | Time Taken | Comments | + + + + + | Blood Pressure | 155/92 | 04/10/2020 1:18 PM | | | | | PDT | | + + + + + | Pulse | 76 | 04/10/2020 1:18 PM | | | | | PDT | | + + + + + | Temperature | 36.1 C (97 F) | 04/10/2020 1:18 PM | | | | | PDT | | + + + + + | Respiratory Rate | - | - | | + + + + + | Oxygen Saturation | 100% | 04/10/2020 1:18 PM | | | | | PDT | | + + + + + | Inhaled Oxygen | - | - | | | Concentration | | | | + + + + + | Weight | - | - | | + + + + + | Height | - | - | | + + + + + | Body Mass Index | - | - | | + + + + + documented in this encounter Progress Notes Cirilo Tijerina DNP - 04/10/2020 1:30 PM [facility] [address] [place] [address] Office: [phone] DATE OF VISIT: 04/10/2020 PATIENT NAME: Jude Henley : 1970; AGE: 49 y.o.; Sex:M PHONE NUMBER: ; ; PROVIDER: Cirilo Tijerina DNP PRIMARY CARE / REFERRING PHYSICIAN: No ref. provider found / Yrn Buckley MD / [address] [facility] / [place] [address] The patient presents today for a Vascular Surgery Postoperative Visit. The patient is statu s post left arm cephalic vein elevation / transposition operation, which was performed on at the [facility] Operating Room. The patient denies fever, wou nd drainage, increasing redness, pus, increasing pain, increasing swelling. Physical examina tion revealed surgical incision which is healing well without signs of infection. He has goo d thrills over the AVF site. The patient is receiving hemodialysis on Wednesday, and Wednesday at [facility]. his injection molding technician is Dr. Rothman. VITAL SIGNS: BP (!) 155/92 | Pulse 76 | Temp 36.1 C (97 F) (Oral) | SpO2 100% PHYSICAL EXAM: Constitutional: Well nourished, no signs of distress Cardiovascular: Normal rate, regular rhythm. Pulmonary/Chest: No respiratory distress. Tunneled catheter in place. Abdominal: Soft. No abdominal distension or tenderness. Musculoskeletal: Normal range of motion. Extremities: No edema, cyanosis or clubbing. Neurological: He is alert and oriented. VASCULAR: Palpable bilateral carotid, radial, brachial pulses. left Upper arm examination s howed normal thrills in the AV fistula. Surgical incision wounds are healing well without si gns of infection. Assessment & Plan: ESRD & s/p left arm cephalic vein transposition with elevation procedure: all berry remov ed, applied steri-strips. Wound care discussed with patient, monitor for signs of infection. Check for AVF thrill daily. Advised patient to avoid sleeping on his left side as it may ca use AVF compression resulting in hand swelling and fistula occlusion. AVF will be ready to u se once incision is completely healed in 2 weeks. Cirilo Tijerina DNP documented in this encounte r Plan of Treatment +--------+---------+ + + + | Date | Type | Specialty | Care Team | Description | +--------+---------+ + + + | 09/30/ | Office | Cardiology | Aditya Monzon, | | 2019 | Visit | | MD [address] | | | | | | [place], | | | | | | [place] [address] | | | | | | [phone] | | | | | | | | +--------+---------+ + + + documented as of this encounter Visit Diagnoses + + | Diagnosis | + + | ESRD on dialysis (HCC) - Primary End stage renal disease | + + | AVF (arteriovenous fistula) (HCC) Arteriovenous fistula, acquired | + + documented in this encounter"
--- OUTSIDE RECORDS SUMMARY | ~2020-07-31 | XMS | Encounter Summary ---
Demographics + + + | Address | [address] | | | [place] [address] | + + + | Home Phone [...] Author + + + | Author | [facility] | | | and [place] | + + + | Organization | [facility] | | [...] Team Providers + +------+ + | Care Manufacturing Lead Name | Role | Phone | + +------+ + | Yrn Buckley MD | PCP | | + +------+ + Encounter Details +--------+ + + + + | Date | Type | Department | Care Team | Description | +--------+ + + + + | 06/23/ | Orders Only | [facility] | Eros Rothman MD | Kidney failure | | 2019 | | NEPRHOLOGY [place] | [address] | | | | | [address] | [address] [place], [place] | | | | | [address] [place], [place] | [address] | | | | | [address] | | | | | | [phone] | | | +--------+ + + + [...] 2019 | Visit | | [address] | | | | | | [place], | | | | | | [place] [address] | | | | | | [phone] | | | | | | | [...]
--- OUTSIDE RECORDS SUMMARY | ~2020-07-31 | XMS | Encounter Summary ---
Demographics + + + | Address | [address] | | | [place] [address] | + + + | Home Phone | | + + + | Preferred Language | Unknown | + + + | Marital Status | Single | + + + | Gnosticist Affiliation | 1041 | + + + | Race | White | + + + | Ethnic Group | Not or | + + + Author + + + | Author | [facility] | | | and [place] | + + + | Organization | [facility] | | | [...] Team Providers + +------+ + | Care Regional Rehabilitation Director Name | Role | Phone | + +------+ + PCP | Unavailable | + +------+ + Encounter Details +--------+ + + + + | Date | Type | Department | Care Team | Description | +--------+ + + + + | 04/05/ | Orders Only | [facility] | Conversion | | | 2019 | | NEPHROLOGY [place] | Transaction, | | | | | [address] | Provider Unknown | | | | | [address] [place], [place] | | | | | | [address] | (Fax) | | | | | [phone] | | | +--------+ + + + [...] | | | | | | [place] [address] | | | | | | [phone] | | | | | | | | +--------+---------+ + + + documented as of this encounter Procedures + +--------+ + + + | Procedure Name | Priori | Date/Time | Associated Diagnosis | Comments | | | ty | | | | + +--------+ + + + | PROTEIN | Routin | 02/15/2019 | | Results for this | | ELECTROPHORESIS, | e | 9:20 AM | | procedure are in the | | SERUM | | PDT | | results section. | + +--------+ + + + | URINALYSIS, | Routin | 02/13/2019 | | Results for this | | MICROSCOPIC ONLY | e | 3:12 PM | | procedure are in the | | | | PDT | | results section. | + +--------+ + + + | PARATHYROID HORMONE, | Routin | 02/13/2019 | | Results for this | | INTACT | e | 3:12 PM | | procedure are in the | | | | PDT | | results section. | + +--------+ + + + | RENAL FUNCTION PANEL | Routin | 02/13/2019 | | Results for this | | | e | 3:12 PM | | procedure are in the | | | | PDT | | results section. | + +--------+ + + + | EXTERNAL LAB: CBC | Routin | 02/10/2019 | | Results for this | | | e | 4:09 PM | | procedure are in the | | | | PDT | | results section. | + +--------+ + + + | LIPID PANEL | Routin | 02/10/2019 | | Results for this | | | e | 4:09 PM | | procedure are in the | | | | PDT | | results section. | + +--------+ + + + | MICROALBUMIN/CREATIN | Routin | 02/10/2019 | | Results for this | | INE RATIO, URINE | e | 4:09 PM | | procedure are in the | | TEST | | PDT | | results section. | + +--------+ + + + | HEMOGLOBIN A1C | Routin | 02/10/2019 | | Results for this | | | e | 4:09 PM | | procedure are in the | | | | PDT | | results section. | + +--------+ + + + | COMPREHENSIVE | Routin | 02/10/2019 | | Results for this | | METABOLIC PANEL | e | 4:09 PM | | procedure are in the | | | | PDT | | results section. | + +--------+ + + + documented in this encounter Results Protein Electrophoresis, Serum (02/15/2019 9:20 AM PDT) + +-------+ + + + | Component | Value | Ref Range | Performed | Pathologist | | | | | At | Signature | + +-------+ + + + | Protein, | 6.3 | 6.0 - 8.3 | EXTERNAL | | | Total | | | LAB | | + +-------+ + + + | Albumin | 3.51 | 2.9 - 6.1 g/dL | EXTERNAL | | | | | | LAB | | + +-------+ + + + | ALPHA 1, BF | 0.21 | 0.1 - 0.32 | EXTERNAL | | | | | | LAB | | + +-------+ + + + | ALPHA 2 | 0.68 | 0.54 - 0.90 | EXTERNAL | | | GLOBULIN | | | LAB | | + +-------+ + + + | Beta-1 | 0.74 | 0.60 - 1.09 | EXTERNAL | | | | | | LAB | | + +-------+ + + + | BETA 2, BF | | | EXTERNAL | | | | | | LAB | | + +-------+ + + + | GAMMA | 1.16 | 0.36 - 1.8 | EXTERNAL | | | GLOBULIN | | | LAB | | + +-------+ + + + | Albumin | | | EXTERNAL | | | | | | LAB | | + +-------+ + + + | ALPHA 1, BF | | | EXTERNAL | | | | | | LAB | | + +-------+ + + + | Alpha 2 % | | | EXTERNAL | | | | | | LAB | | + +-------+ + + + | Beta-1 % | | | EXTERNAL | | | | | | LAB | | + +-------+ + + + | Beta-2 % | | | EXTERNAL | | | | | | LAB | | + +-------+ + + + | GAMMA, BF | | | EXTERNAL | | | | | | LAB | | + +-------+ + + + | Interpretat | | | EXTERNAL | | | ion: | | | LAB | | + +-------+ + + + | Immunofixat | | | EXTERNAL | | | ion, Urine | | | LAB | | | Interp | | | | | + +-------+ + + + + + | Specimen | + + | Blood specimen | | (specimen) | + + + +---------+ + + | Performing | Address | City/State/Zipcode | Phone Number | | Organization | | | | + +---------+ + + | EXTERNAL LAB | | | | + +---------+ + + Urinalysis, Microscopic Only (02/13/2019 3:12 PM PDT) + + + + + + | Component | Value | Ref Range | Performed | Pathologist | | | | | At | Signature | + + + + + + | Color | Yellow | | EXTERNAL | | | | | | LAB | | + + + + + + | Clarity, | Clear | | EXTERNAL | | | Urine | | | LAB | | + + + + + + | Specific | 1.009 | 1.005 - 1.030 | EXTERNAL | | | Patriot, | | | LAB | | | Urine | | | | | + + + + + + | Leukocyte | Negative | | EXTERNAL | | | Esterase, | | | LAB | | | Urine | | | | | + + + + + + | Nitrite, | Negative | | EXTERNAL | | | Urine | | | LAB | | + + + + + + | Urobilinoge | Normal | | EXTERNAL | | | n, Urine | | | LAB | | + + + + + + | Protein, | TraceComment: 100 | | EXTERNAL | | | Urine | | | LAB | | + + + + + + | pH, Urine | 5 | 5 - 9 | EXTERNAL | | | | | | LAB | | + + + + + + | Blood, | PositiveComment: | | EXTERNAL | | | Urine | Moderate | | LAB | | + + + + + + | Ketones | Negative | | EXTERNAL | | | | | | LAB | | + + + + + + | Bilirubin, | Negative | | EXTERNAL | | | Urine | | | LAB | | + + + + + + | Glucose, | TraceComment: Small | | EXTERNAL | | | Urine | | | LAB | | + + + + + + + + | Specimen | + + | Urine specimen | | (specimen) | + + + + + | Narrative | Performed At | + + + | Casts: Negative WBC: 0 RBC: 0 Epithelial: Squamous 1+ Crystals: | EXTERNAL LAB | | Negative Bacteria: 1+ | | + + + + +---------+ + + | Performing | Address | City/State/Zipcode | Phone Number | | Organization | | | | + +---------+ + + | EXTERNAL LAB | | | | + +---------+ + + Parathyroid Hormone, Intact (02/13/2019 3:12 PM PDT) + + + + + + | Component | Value | Ref Range | Performed | Pathologist | | | | | At | Signature | + + + + + + | PTH INTACT | 74.87 (A) | 15 - 65 pg/mL | EXTERNAL | | | | | | LAB | | + + + + + + + + | Specimen | + + | Blood specimen | | (specimen) | + + + +---------+ + + | Performing | Address | City/State/Zipcode | Phone Number | | Organization | | | | + +---------+ + + | EXTERNAL LAB | | | | + +---------+ + + Renal Function Panel (02/13/2019 3:12 PM PDT) + + + + + + | Component | Value | Ref Range | Performed | Pathologist | | | | | At | Signature | + + + + + + | Glucose, | 158 (A) | 70 - 100 mg/dL | EXTERNAL | | | Fasting | | | LAB | | + + + + + + | BUN | 57 (A) | 6 - 23 mg/dL | EXTERNAL | | | | | | LAB | | + + + + + + | Creatinine | 3.07 (A) | 0.60 - 1.35 | EXTERNAL | | | | | mg/dL | LAB | | + + + + + + | PHOSPHORUS | 3.9 | 2.5 - 5.0 mg/dL | EXTERNAL | | | | | | LAB | | + + + + + + | Albumin | 3.5 | 3.5 - 5.0 | EXTERNAL | | | | | | LAB | | + + + + + + | Na | 132 | 132 - 143 | EXTERNAL | | | | | mmol/L | LAB | | + + + + + + | K | 5.0 | 3.6 - 5.1 | EXTERNAL | | | | | mmol/L | LAB | | + + + + + + | Cl | 106 | 95 - 112 mmol/L | EXTERNAL | | | | | | LAB | | + + + + + + | CO2 | 18 (A) | 19 - 31 mmol/L | EXTERNAL | | | | | | LAB | | + + + + + + | Anion Gap | 13.0 | 7 - 21 mmol/L | EXTERNAL | | | | | | LAB | | + + + + + + | eGFR, | | | EXTERNAL | | | non- | | | LAB | | | Albanian | | | | | + + + + + + | Phosphorus, | | | EXTERNAL | | | Inorganic | | | LAB | | + + + + + + | BUN/Creatin | 18.6 | 6.0 - 28.6 | EXTERNAL | | | ine Ratio | | | LAB | | + + + + + + | Calcium | 9.1 | 8.5 - 10.2 | EXTERNAL | | | | | mg/dL | LAB | | + + + + + + | Estimated | 22 (A) | 60 - 140 mg/dL | EXTERNAL | | | GFR | | | LAB | | + + + + + + + + | Specimen | + + | Blood specimen | | (specimen) | + + + +---------+ + + | Performing | Address | City/State/Zipcode | Phone Number | | Organization | | | | + +---------+ + + | EXTERNAL LAB | | | | + +---------+ + + Microalbumin/Creatinine Ratio, Urine (02/10/2019 4:09 PM PDT) + + + + + + | Component | Value | Ref Range | Performed | Pathologist | | | | | At | Signature | + + + + + + | ALBUMIN/CRE | 984.7 (A) | 0 - 30 | EXTERNAL | | | ATININE | | | LAB | | | RATIO.URINE | | | | | | .ORD.MG/G | | | | | | (NICA) | | | | | | | | | | | | | | | | | + + + + + + + + | Specimen | + + | Urine specimen | | (specimen) | + + + +---------+ + + | Performing | Address | City/State/Zipcode | Phone Number | | Organization | | | | + +---------+ + + | EXTERNAL LAB | | | | + +---------+ + + External Lab: CBC (02/10/2019 4:09 PM PDT) + + + + + + | Component | Value | Ref Range | Performed | Pathologist | | | | | At | Signature | + + + + + + | WBC | 6.3 | 4.5 - 11.0 10 | EXTERNAL | | | | | | LAB | | + + + + + + | Non- | 3.90 (A) | 4.3 - 5.7 10 | EXTERNAL | | | Red Blood | | | LAB | | | Cells | | | | | | Counted | | | | | + + + + + + | Hemoglobin | 10.9 (A) | 13.5 - 18.0 | EXTERNAL | | | | | g/dL | LAB | | + + + + + + | Hematocrit, | 33.3 (A) | 41 - 50 % | EXTERNAL | | | POC | | | LAB | | + + + + + + | MCV | 85.6 | 71 - 99 fL | EXTERNAL | | | | | | LAB | | + + + + + + | MCH | 28 | 27 - 63 pg | EXTERNAL | | | | | | LAB | | + + + + + + | MCHC | 33 | 30 - 36 g/dL | EXTERNAL | | | | | | LAB | | + + + + + + | Platelet | 197 | 140 - 440 K/ L | EXTERNAL | | | Count | | | LAB | | | Plasma | | | | | + + + + + + | RDW-CV | 15.0 | 10.5 - 15.0 % | EXTERNAL | | | | | | LAB | | + + + + + + | MPV | | fL | EXTERNAL | | | | | | LAB | | + + + + + + | Differentia | | | EXTERNAL | | | l Type | | | LAB | | + + + + + + | % Segmented | 58.7 | 39 - 80 % | EXTERNAL | | | | | | LAB | | | Neutrophils | | | | | + + + + + + | % | 23.5 (A) | 24 - 44 % | EXTERNAL | | | Lymphocytes | | | LAB | | + + + + + + | % Monocytes | 7.3 | 0 - 12 % | EXTERNAL | | | | | | LAB | | + + + + + + | % | 9.1 (A) | 0 - 6 % | EXTERNAL | | | Eosinophils | | | LAB | | + + + + + + | % Basophils | 1.4 | 0 - 2 % | EXTERNAL | | | | | | LAB | | + + + + + + | Absolute | | / L | EXTERNAL | | | Segmented | | | LAB | | | Neutrophils | | | | | + + + + + + | Absolute | | / L | EXTERNAL | | | Lymphocytes | | | LAB | | + + + + + + | Absolute | | / L | EXTERNAL | | | Monocytes | | | LAB | | + + + + + + | Absolute | | / L | EXTERNAL | | | Eosinophils | | | LAB | | + + + + + + | Absolute | | / L | EXTERNAL | | | Basophils | | | LAB | | + + + + + + + + | Specimen | + + | Blood specimen | | (specimen) | + + + +---------+ + + | Performing | Address | City/State/Zipcode | Phone Number | | Organization | | | | + +---------+ + + | EXTERNAL LAB | | | | + +---------+ + + Hemoglobin A1C (02/10/2019 4:09 PM PDT) + +-------+ + + + | Component | Value | Ref Range | Performed | Pathologist | | | | | At | Signature | + +-------+ + + + | Hemoglobin | 8.6 | % | EXTERNAL | | | A1c | | | LAB | | + +-------+ + + + + + | Specimen | + + | Blood specimen | | (specimen) | + + + +---------+ + + | Performing | Address | City/State/Zipcode | Phone Number | | Organization | | | | + +---------+ + + | EXTERNAL LAB | | | | + +---------+ + + Lipid Panel (02/10/2019 4:09 PM PDT) + +-------+ + + + | Component | Value | Ref Range | Performed | Pathologist | | | | | At | Signature | + +-------+ + + + | Cholesterol | 100 | 200 mg/dL | EXTERNAL | | | | | | LAB | | + +-------+ + + + | Triglycerid | 110 | 30 - 150 mg/dL | EXTERNAL | | | es | | | LAB | | + +-------+ + + + | HDL | 29 | 40 mg/dl | EXTERNAL | | | | | | LAB | | + +-------+ + + + | LDL, | 49 | 100 mg/dL | EXTERNAL | | | Calculated | | | LAB | | + +-------+ + + + | LDl/HDL | | | EXTERNAL | | | Ratio | | | LAB | | + +-------+ + + + | Chol/HDL | 3.4 | 4.97 | EXTERNAL | | | Ratio | | | LAB | | + +-------+ + + + | VLDL | 22 | 4 - 40 mg/dL | EXTERNAL | | | | | | LAB | | + +-------+ + + + | Non HDL | 71 | 130 | EXTERNAL | | | Chol. | | | LAB | | | (LDL+VLDL) | | | | | + +-------+ + + + + + | Specimen | + + | Blood specimen | | (specimen) | + + + +---------+ + + | Performing | Address | City/State/Zipcode | Phone Number | | Organization | | | | + +---------+ + + | EXTERNAL LAB | | | | + +---------+ + + Comprehensive Metabolic Panel (02/10/2019 4:09 PM PDT) + + + + + + | Component | Value | Ref Range | Performed | Pathologist | | | | | At | Signature | + + + + + + | Glucose, | 163 (A) | 70 - 100 mg/dL | EXTERNAL | | | Fasting | | | LAB | | + + + + + + | BUN | 57 (A) | 6 - 23 mg/dL | EXTERNAL | | | | | | LAB | | + + + + + + | Creatinine | 3.32 (A) | 0.60 - 1.35 | EXTERNAL | | | | | mg/dL | LAB | | + + + + + + | BUN/Creatin | | | EXTERNAL | | | ine Ratio | | | LAB | | + + + + + + | Calcium | 8.6 | 8.5 - 10.3 | EXTERNAL | | | | | mg/dL | LAB | | + + + + + + | Protein, | 6.6 | 6.0 - 8.3 g/dL | EXTERNAL | | | Total | | | LAB | | + + + + + + | Albumin | 3.8 | 3.5 - 5.0 | EXTERNAL | | | | | | LAB | | + + + + + + | Globulin | 2.8 | 1.8 - 3.5 | EXTERNAL | | | | | | LAB | | + + + + + + | A/G Ratio | 1.4 | 1.1 - 2.4 | EXTERNAL | | | | | | LAB | | + + + + + + | Bilirubin | 0.4 | 0.0 - 1.2 mg/dL | EXTERNAL | | | Total | | | LAB | | + + + + + + | ALP, | 114 | 31 - 120 | EXTERNAL | | | External | | | LAB | | + + + + + + | ALT | 16 | 7 - 52 U/L | EXTERNAL | | | | | | LAB | | + + + + + + | AST | 11 (A) | 13 - 39 U/L | EXTERNAL | | | | | | LAB | | + + + + + + | Na | 133 | 132 - 143 | EXTERNAL | | | | | mmol/L | LAB | | + + + + + + | K | 5.6 (A) | 3.6 - 5.1 | EXTERNAL | | | | | mmol/L | LAB | | + + + + + + | Cl | 108 | 95 - 112 mmol/L | EXTERNAL | | | | | | LAB | | + + + + + + | CO2 | 18 (A) | 19 - 31 mmol/L | EXTERNAL | | | | | | LAB | | + + + + + + | Anion Gap | 12.6 | 7 - 21 mmol/L | EXTERNAL | | | | | | LAB | | + + + + + + | Estimated | 20 (A) | 60 - 140 mg/dL | EXTERNAL | | | GFR | | | LAB | | + + + + + + + + | Specimen | + + | Blood specimen | | (specimen) | + + + +---------+ + + | Performing | Address | City/State/Zipcode | Phone Number | | Organization | | | | + +---------+ + + | EXTERNAL LAB | | | | + +---------+ + + documented in this encounter Visit Diagnoses Not on filedocumented in this encounter"
--- OUTSIDE RECORDS SUMMARY | ~2020-07-31 | XMS | Encounter Summary ---
Demographics + + + | Address | [address] | | | [place] [address] | + + + | Home Phone | | + + + | Preferred Language | Unknown | + + + | Marital Status | Single | + + + | Holiness Affiliation | 1041 | + + + [...] Team Providers + +------+ + | Care Talent Recruiter Name | Role | Phone | + +------+ + | Yrn Buckley MD | PCP | | + +------+ + Encounter Details +--------+ + + + + | Date | Type | Department | Care Team | Description | +--------+ + + + + | 02/18/ | Hospital | [facility] | Cirilo Tijerina, PER | No Show | | 2019 | Encounter | VASCULAR SURGERY | [address] | | | | | [address] | [place], [place] | | | | | [address] | [address] | | | | | [place], [place] | | | | | | [address] | | | | | | [phone] | | | +--------+ + + + [...] | | | | | | [place] [address] | | | | | | [phone] | | | | | | | [...] PDT | + + + + + | Rule out COVID-19 | 03/27/2020 | 03/27/2020 | 03/27/2020 2:32 PM | | | | | PDT | + + + + + documented as of this encounter"
--- OUTSIDE RECORDS SUMMARY | ~2020-07-31 | XMS | Encounter Summary ---
Demographics + + + | Address | [address] | | | [place] [address] | + + + | Home Phone | | + + + | Preferred Language | Unknown | + + + | Marital Status | Single | + + + | Baptist Affiliation | 1041 | + + + | Race | White | + + + | Ethnic Group | Not or | + + + Author + + + | Author | [facility] | | | and [place] | + + + | Organization | [facility] | | [...] Team Providers + +------+ + | Care Visual Arts Teacher Name | Role | Phone | + [...] + + | 03/13/ | Telephone | [facility] | Elpidio Gunter MD | Appointment (03/13/20 | | 2020 | | VASCULAR SURGERY | [address] | baldev) | | | | [address] [place] | [place], [place] | | | | | [place], [place] | [address] | | | | | [address] | [phone] | | | | | [phone] | | | +--------+ + + + [...] 03/13/2020 1:15 PM PDTReturn call made to [facility], patient's procedure rescheduled to next Wednesday. elephone Encounter - Nay Leyva - 03/13/2020 12:2 6 PM PDTLinaluisana, is returning call for Appointment (03/13/20 cancel) and would like a call back. Additional Call Details: Returning call. Please call Ramona back at [phone]. elephone Encounter - Rupal Guerra RN - 03/13/2020 12:21 PM PDTReturn call made to [facility], had to leave message, awaiting call back from [facility] to reschedule patient. Dr Gunter and roofing laborer notified. Bacilio watt signed by Rupal Black RN at 03/13/2020 12:21 PM PDTTelephone Encounter - Nay Claudio - 03/13/2020 11:19 AM YORosaura, sister, is calling regarding Appointment (03/13/20 brenda schroeder) and would like a call back. Additional Call Details: Calling to cancel 03/13/20 appointment. Patient is ill. Please call back to [facility] at [phone]. If this is a symptom based call, was patient offered triage? Not Applicable If this is a symptom based call and you were unable to immediately transfer the call to a mikel varela flatwork finisher hand was caller made aware that if at [...] | | | | | | [place] [address] | | | | | | [phone] | | | | | | | [...]
--- OUTSIDE RECORDS SUMMARY | ~2020-07-31 | XMS | Encounter Summary ---
Demographics + + + | Address | [address] | | | [place] [address] | + + + | Home Phone | | + + + | Preferred Language | Unknown | + + + | Marital Status | Single | + + + | Judaism Affiliation | 1041 | + + + | Race | White | + + + | Ethnic Group | Not or | + + + Author + + + | Author | [facility] | | | and [place] | + + + | Organization | [facility] | | | [...] Team Providers + +------+ + | Care Electromechanical Technologist Name | Role | Phone | + +------+ + | Yrn Buckley MD | PCP | | + +------+ + Reason for Visit + +--------+ + | Reason | Onset | Comments | | | Date | | + +--------+ + | Surgery Appointment | 01/03/ | | | | 2019 | | + +--------+ + Encounter Details +--------+ + + + + | Date | Type | Department | Care Team | Description | +--------+ + + + + | 01/03/ | Telephone | [facility] | Rupal Black, | Surgery Appointment | | 2020 | | VASCULAR SURGERY | RN | | | | | [address] | | | | | | [place] | | | | | | [address] | | | | | | [phone] | | | +--------+ + + + [...] Telephone Encounter - Rupal Black RN - 01/03/2020 1:05 PM PSTPatient completed ultr asound mapping of upper extremities for AVF insertion. Patient scheduled for 01/12/2020, left brachial cephalic fistula insertion. Electronically signed by Rupal Black RN at 12/10 1:44 PM PSTdocumented in this encounter Plan of Treatment +--------+---------+ + + + | Date | Type | Specialty | Care Team | Description | +--------+---------+ + + + | 09/30/ | Office | Cardiology | Aditya Monzon, | | 2019 | Visit | | MD [address] | | | | | | [place], | | | | | | [place] [address] | | | | | | [phone] | | | | | | | | +--------+---------+ + + + documented as of this encounter Visit Diagnoses Not on filedocumented in this encounter"
--- OUTSIDE RECORDS SUMMARY | ~2020-07-31 | XMS | Encounter Summary ---
Demographics + + + | Address | [address] | | | [place] [address] | + + + | Home Phone | | + + + | Preferred Language | Unknown | + + + | Marital Status | Single | + + + | Yazdanism Affiliation | 1041 | + + + [...] Team Providers + +------+ + | Care Building Tech Name | Role | Phone | + [...] | | | | | | | (FORMERLY [facility]) | | | | | | | [...] + + | 03/29/ | Hospital | [facility] | Elpidio Gunter MD | ESRD on dialysis | | 2020 | Encounter | [facility] | [address] | ([facility]) | | | | CARE FLO[address] | [place] | | | | | [place] | [address] | | | | | [place] | [phone] | | | | | [address] | | | | | | [phone] | | | +--------+ + + + [...] dialysis shunt, please contact your ysician at [phone]. Arteriovenous (AV) Fistula for Dialysis An AV [...] cuts, scrapes, or blows. Date Last Reviewed: 11/08/201619992416-8264 [employer]. [address] [place] [address], [place] [address]. All [facility] ts reserved. This information is not intended [...] information carefully each time. Talk to your it program manager regarding the use of this medicine in children. Special care may be needed. What side effects may I notice from receiving this medicine? Side effects that you should report to your doctor or health family member caretaker as soon as p ossible: allergic reactions [...] attention (report to your doctor or health family member caretaker if they continue or are bothersome): constipation [...] the [facility] at [phone] or your [facility] government to find a site. If you [...] this medicine? Tell your doctor or health family member caretaker if your pain does not go away, [...] instructions went over with patikasia kee and diesel truck driver over phone all questions answered patient sent home with prescriptions. documented in this encounter Consult Notes Alyssa Johnston PA-C - 03/28/2020 3:00 PM PDTFormatting of this note might be different f rom the original. Incomplete []Hide copied text []Hover for details [facility] PREOPERATIVE HISTORY AND PHYSICAL PRIMARY CARE PHYSICIAN: [...] thrill s over the AVF site. Patient's career development facilitator is Dr. Rothman. The patient is a right handed pe rson. The patient is receiving hemodialysis on Wednesday, and Wednesdayvia right upp er chest tunneled catheter at [facility]. Past Medical History: Diagnosis Date CKD (chronic kidney disease) stage 4, GFR 15-29 ml/min (HCC) Convulsive disorder (HCC) DM (diabetes mellitus), type 1, uncontrolled (HCC) HTN (hypertension) Proteinuria Past Surgical History: Procedure Laterality Date APPENDECTOMY AV FISTULA INSERTION Left 01/05/2020 Procedure: INSERTION AV FISTULA; Surgeon: Elpidio Gunter MD; Location: [facility] MAIN OR OTHER SURGICAL [...] Gunter MD - 03/29/2020 8:[address] [facility] Service: Vascular Surgery Operative Note Pre-operative Diagnosis: ESRD and fistula too deep to access Post-operative Diagnosis: same Procedure(s): Superficialization of left brachiocephalic fistula Surgeon: Elpidio Gunter MD Radiotelegraph Operator(s): MARCELO Urena (MARCELO was required to help [...] then applied. Patient was then [facility] PACU in stable condition. There were no apparent complications. Condition: stable Elpidio Gunter MD 03/29/2020 8:11 AM documented in this enc ounter Plan of Treatment +--------+---------+ + + + | Date | Type | Specialty | Care Team | Description | +--------+---------+ + + + | 09/30/ | Office | Cardiology | Aditya Mnozon, | | | 2019 | Visit | | MD [address] | | | | | | [place], | | | | | | [place] [address] | | | | | | [phone] | | | | | | | [...] | | | POC | performed at [facility];[address] | | LABORATORY | | | | [address];[place], [place] | | | | | | [address] | | | | + + + + + + + + | Specimen | + + | | + + + + + + + | Performing | Address | City/State/Zipcode | Phone Number | | Organization | | | | + + + + + | [facility] | [address] | [place] [address] | [phone] | + + + + + CBC [...] 0.05Comment: Testing | 0.00 - 0.10 | [facility] | | | Absolute | performed at [facility];[address] | LABORATORY | | | | [address];[place], [place] | | | | | | [address] | | | | + + + + + + + + | Specimen | + + | Blood | + + + + + + + | Performing | Address | City/State/Zipcode | Phone Number | | Organization | | | | + + + + + | [facility] | [address] | [place] [address] | [phone] | + + + + + Basic [...] | | | | | performed at [facility];[address] | | | | | | [facility];[place], [place] | | | | | | [address] | | | | + + + + + + + + | Specimen | + + | Blood | + + + + + + + | Performing | Address | City/State/Zipcode | Phone Number | | Organization | | | | + + + + + | [facility] | [address] [facility] | [place] [address] | [phone] | + + + + + POC [...] | | | POC | performed at [facility];[address] | | LAB[address]AT[address] | | | | [address];[place], [place] | | | | | | [address] | | | | + + + + + + + + | Specimen | + + | | + + + + + + + | Performing | Address | City/State/Zipcode | Phone Number | | Organization | | | | + + + + + | [facility] | [address] | [place] [address] | [phone] | + + + + + documented [...]
--- OUTSIDE RECORDS SUMMARY | ~2020-07-31 | XMS | Encounter Summary ---
Demographics + + + | Address | [address] | | | [place] [address] | + + + | Home Phone | | + + + | Preferred Language | Unknown | + + + | Marital Status | Single | + + + | Baptism Affiliation | [id number] | + + + | Race | White | + + + | Ethnic Group | Not or | + + + Author + + + | Author | [facility] | | | and [place] | + + + | Organization | [facility] | | [...] Team Providers + +------+ + | Care Behavioral Health Tech Name | Role | Phone | + +------+ + | Yrn Buckley MD | PCP | | + +------+ + Reason for Referral Evaluate & Treat (Routine) + + + + + + + | Status | Reason | Specialty | Diagnoses / | Referred By | Referred To | | | | | Procedures | Contact | Contact | + + + + + + + | Pending | Specialty | Physical | Diagnoses | Jaksaran, | | | Review | Services | Therapy / | At high | Kamari Ruiz, | | | | Required | Rehabilitatio | risk for | MD [address] | | | | | n | falls | [address] | | | | | | Visual | [place], [place] | | | | | | impairment | [id number] | | | | | | due to | Phone: | | | | | | diabetes | [phone] | | | | | | mellitus | Fax: | | | | | | ([facility]) | [phone] | | | | | | Neuropathy | | | | | | | due to | | | | | | | secondary | | | | | | | diabetes | | | | | | | ([facility]) ESRD | | | | | | | on | | | | | | | hemodialysis | | | | | | | ([facility]) | | | + + + + + + + Evaluate & Treat (Routine) + + + + + + + | Status | Reason | Specialty | Diagnoses / | Referred By | Referred To | | | | | Procedures | Contact | Contact | + + + + + + + | Pending | Specialty | Home Health | Diagnoses | Jaskaran, | [facility] | | Review | Services | Services | ESRD (end | Kamari Ruiz, | [facility] | | | Required | | stage renal | [address] | HOME HEALTH | | | | | disease) | [address] | [address] | | | | | (HCC) Type | [place], [place] | [place] | | | | | 2 diabetes | [id number] | [address] | | | | | mellitus | Phone: | Phone: | | | | | with | [phone] | [phone] | | | | | diabetic | Fax: | Fax: | | | | | nephropathy, | [phone] | [phone] | | | | | with | | | | | | | long-term | | | | | | | current use | | | | | | | of insulin | | | | | | | (HCC) At | | | | | | | high risk | | | | | | | for falls | | | | | | | Visual | | | | | | | impairment | | | | | | | due to | | | | | | | diabetes | | | | | | | mellitus | | | | | | | (HCC) | | | | | | | Neuropathy | | | | | | | due to | | | | | | | secondary | | | | | | | diabetes | | | | | | | (HCC) | | | + + + + + + + Reason for Visit + + + | Reason | Comments | + + + | Abnormal Lab | GFR [address] Perdomo | + + + Auth/Cert +--------+--------+ + + + + | Status | Reason | Specialty | Diagnoses / | Referred By | Referred To | | | | | Procedures | Contact | Contact | +--------+--------+ + + + + | | | | Diagnoses | | | | | | | Acute renal | | | | | | | failure, | | | | | | | unspecified | | | | | | | acute renal | | | | | | | failure type | | | | | | | (HCC) | | | +--------+--------+ + + + + Encounter Details +--------+ + + + + | Date | Type | Department | Care Team | Description | +--------+ + + + + | 01/04/ | Hospital | [facility] | Maury Wilson | Acute renal failure, | | 2019 - | Encounter | [facility] | DO Kamari [address] | unspecified acute | | | | CARE FLOOR [address] | [address] | renal failure type | | 01/09/ | | [address] | [place], [place] | ([facility]) (Primary Dx); | | 2019 | | [place] | [address] | ESRD (end stage | | | | [address] | [phone] | renal disease) | | | | [phone] | | ([facility]); ESRD (end | | | | | Gee, | stage renal disease) | | | | | MD Mike [address] | ([facility]); CKD (chronic | | | | | [address] | kidney disease) | | | | | [place] [address] | stage 5, GFR less | | | | | [phone] | than 15 ml/min | | | | | | ([facility]); Uremia, | | | | | Hayes Mason MD | acute; At high risk | | | | | [address] | for electrolyte | | | | | [place] [address] | imbalance; Essential | | | | | [phone] | hypertension; | | | | | | Hyperphosphatemia; | | | | | Elpidio Gunter MD | Metabolic acidosis; | | | | | [address] | 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[place], [place] | mellitus with | | | | | [address] | diabetic | | | | | [phone] | nephropathy, with | | | | | | long-term current | | | | | Bri Bishop DO | use of insulin | | | | | [address] | ([facility]); Anemia in | | | | | [place] [address] | ESRD (end-stage | | | | | [phone] | renal disease) | | | | | | ([facility]); | | | | | Kamari Jessica, | Hypoalbuminemia; At | | | | | [address] | high risk for falls; | | | | | [place] [address] | Visual impairment | | | | | [phone] | due to diabetes | | | | | | mellitus (HCC); | | | | | | Neuropathy due to | | | | | | secondary diabetes | | | | | | ([facility]); ESRD on | | | | | | hemodialysis ([facility]) | +--------+ + + + + Social [...] + + + | Blood Pressure | 99/55 | 01/10/2020 11:32 AM | | | | | PST | | + + + + + | Pulse | 80 | 01/10/2020 11:32 AM | | | | | PST | | + + + + + | Temperature | 36.4 C (97.6 F) | 01/10/2020 11:32 AM | | | | | PST | | + + + + + | Respiratory Rate | 18 | 01/10/2020 11:32 AM | | | | | PST | | + + + + + | Oxygen Saturation | 99% | 01/10/2020 11:32 AM | | | | | PST | | + + + + + | Inhaled Oxygen | - | - | | | Concentration | | | | + + + + + | Weight | 81.5 kg (179 lb 10.8 | 01/10/2020 10:25 AM | | | | oz) | PST | | + + + + + | Height | 182.9 cm (6') | 01/04/2020 7:05 PM | | | | | PST | | + + + + + | Body Mass Index | 24.37 | 01/04/2020 7:05 PM | | | | | PST | | + + + + + documented in this encounter Discharge Summaries Kamari Jessica MD - 01/10/2020 12:53 PM PSTFormatting of this note might be different f rom the original. [facility] Service: Hospitalist Physician Discharge Summary Patient ID: Cely Henley 1970 49 y.o. Admit date: 01/04/2020 Discharge date: 01/10/2020 Admitting Physician: Mike Flynn MD Discharge Physician: Kamari Jessica MD Consultants: Treatment Team: Eros Rothman MD Primary Discharge Diagnoses: Principal Problem: NELIA (acute kidney injury) Active Problems: CKD (chronic kidney disease) stage 5, GFR less than 15 ml/min Type 2 diabetes mellitus with diabetic nephropathy, with long-term current use of insulin Anemia of chronic kidney failure, stage 5 Essential hypertension ESRD on hemodialysis S/P arteriovenous (AV) fistula creation S/P hemodialysis catheter insertion Resolved Problems: Uremic encephalopathy HPI and Hospital Course: HPC : " Reason for admission: Worsening kidney disease Chief Complaint: Abnormal labs HPI: Patient of a 49-year-old male with a significant past medical history of chronic kidney dis ease stage V, diabetes mellitus, hypertension, seizure disorder who comes in with worsening renal function Patient with history of stage V chronic kidney disease in the background of a longstanding diabetes and hypertension. Kidney disease a thought to be related to diabetic nephropathy a nd/or hypertensive nephrosclerosis who follows with Dr Rothman, nephrology, and was sent to [facility] emergency department due to uremia and concerns for uremic encephalopathy. Patient refers that he has been quite compliant with his diet, medications, and glucose mon itoring but unfortunately, due to unknown reasons to him, his kidney function has been getti ng progressively worse. Patient was seen by Dr Rothman who informed him of his worsening placido l function and was told to come to emergency department for further management. Patient den ies any recent chest pain, dyspnea, cough or sputum production. Positive nausea and vomitin g x1, mainly liquid and bile. Denies any episodes of hematemesis or hematochezia. No recen t abdominal pain, diarrhea, dysuria or hematuria. No recent fever, chills or night sweats. In the emergency department, the patient has remained hemodynamically stable. EKG shows si nus rhythm without any acute ST changes. ED provider already consulted nephrology Dr oRthman. Patient will be admitted under the hospital service for further management.".... per Dr. Richard johansen MD's H&P/admitting hospitalist. Hospital course: Patient was admitted to [facility] with a both presenting complaint. Patient underwent on 01/05/[address] Jani VÁZQUEZ: A: Procedure(s): Ultrasound guided access of right internal jugular vein Placement of 23 cm tunneled dialysis catheter under fluoroscopi c B: Procedure(s): Left brachiocephalic fistula creation He was subsequently started on hemodialysis under direction of nephrology/Dr. Lorna VÁZQUEZ. His symptoms of uremia gradually improved with sequential hemodialysis treatments. Case rich zaragoza coordinated with outpatient dialysis centers in [facility] to estab [facility] care time for the patient. Eventually patient received chair time. He was also evalua kalani by physical therapy due to his difficulty ambulating in part because of presenting compl aints/uremia but also due to patient's chronic diabetic neuropathy most likely. He was edwar mmended to utilized four-wheel walker work was obtained for him and delivered to patient's r oom, to take home. We also recommended for patient to accept our proposal to use home healt h services including home health PT for further balance training, fall precautions intervent ions, household evaluation, etc. Patient however kindly declined at the time of discharge/s ervice. Instead outpatient physical therapy was recommended and referral to outpatient phys ical therapy was made for the patient. Overall, patient reached clinical stability and was declared medically stable for discharge , once his chair time has been established and verified. Patient will be picked up by famil y friend. Additional issues: 1. End-stage renal disease stage V, associated anemia; Patient has not shown any evidence of bleeding. Anemia will be further managed by nephfannie christie/Dr. Lorna VÁZQUEZ with ongoing dialysis treatments including Epogen injections/iron as need ed. 2. Visual impairment including likely cataract opacification as well as most likely progre ssive diabetic retinopathy. Patient mentioned that he is going to contact his ophthalmologi st and Ольга/pedal to the area for reevaluation now that his systolic blood pressures be came much more controlled following initiation of dialysis. Patient might need treatment fo r diabetic retinopathy. Past Medical History: Past Medical History: Diagnosis Date CKD (chronic kidney disease) stage 4, GFR 15-29 ml/min ([facility]) Convulsive disorder (HCC) DM (diabetes mellitus), type 1, uncontrolled (HCC) HTN (hypertension) Proteinuria Past Surgical History: Procedure Laterality Date APPENDECTOMY AV FISTULA INSERTION Left 01/05/2020 Procedure: INSERTION AV FISTULA; Surgeon: Elpidio Gunter MD; Location: [facility] MAIN OR OTHER SURGICAL HISTORY Left 2018 CATARACT EXTRACTION Discharged Condition: Stable for discharge as stated above. Significant Diagnostic Studies: Recent Results (from the past 360 hour(s)) VAS Arm Bilateral Mapping For Dialysis Narrative UPPER EXTREMITY VEIN MAPPING CLINICAL INFORMATION: Pre Dialysis. COMPARISON: None PROCEDURE: Duplex evaluation of the veins of the upper extremities. All measurements in mm. Top number is depth of vein. Bottom number is diameter of vein. Measurements performed with tourniquet. FINDINGS: Right side: Cephalic vein: Proximal 5.3, mid 5.0, elbow 5.5, upper forearm 3.7, mid forearm 3.9, distal forearm 3.7. Basilic vein: Proximal 6.1, mid 4.5, elbow 3.4, upper forearm 1.5. Left side: Cephalic vein: Proximal 7.0, mid 6.7, elbow 4.9, upper forearm 4.6, mid forearm 4.0, distal forearm 1.3. Basilic vein: Mid 4.6, elbow 6.0, upper forearm 4.6, mid forearm 3.5, distal forearm 3.8. Impression Bilateral upper extremity vein mapping. Measurements above. Signed by: Jerson Guadarrama David Sign Date/Time: 01/01/2020 6:41 AM US Renal Limited Narrative ULTRASOUND KIDNEYS AND BLADDER CLINICAL INFORMATION: Chronic kidney disease. COMPARISON: None PROCEDURE: Evaluation of the kidneys and urinary bladder. FINDINGS: Right kidney: 11.7 cm. No solid renal mass, hydronephrosis or definitive calculi. Left kidney: 10.2 cm. No solid renal mass, hydronephrosis or definitive calculi. Prominent renal pelvis. Bladder: Distended with asymmetric wall thickening with the posterior wall measuring 7.6 mm, anterior wall measuring 4.9 mm. Bilateral ureteral jets visualized. Postvoid residual 126 mL. Normal-sized prostate. Impression 1. Thick-walled urinary bladder. Normal-sized prostate. 2. Mildly prominent left renal pelvis without hydronephrosis at either kidney. Signed by: Jerson Guadarrama David Sign Date/Time: 01/05/2020 6:44 AM XR Chest PA and Lateral Narrative CHEST PA AND LATERAL CLINICAL INFORMATION: Dyspnea. COMPARISON: None FINDINGS: Hyperinflation. Heart size is normal. Lungs are clear. Right IJ MediPort tip mid SVC. Osteopenia with mild degenerative changes of the spine. Air-fluid levels in bowel loops in the upper abdomen, suggesting mild ileus. No free air. Impression Hyperinflation, without infiltrate. Air-fluid levels in bowel in the upper abdomen. Correlate for ileus. Signed by: Jerson Vences Shawn Sign Date/Time: 01/08/2020 2:13 PM Discharge Vitals: Vitals: 01/10/20 1017 01/10/20 1025 01/10/20 1040 01/10/20 1132 BP: (!) 173/98 (!) 164/92 (!) 164/92 99/55 Pulse: 87 88 93 80 Resp: 18 18 18 Temp: 37.1 C (98.8 F) 36.4 C (97.6 F) TempSrc: Oral SpO2: 96% 96% 99% Weight: 81.5 kg (179 lb 10.8 oz) Height: Discharge Exam: Physical Exam Constitutional: He is oriented to person, place, and time and well-developed, well-nourishe d, and in no distress. HENT: Head: Normocephalic. Mouth/Throat: No oropharyngeal exudate. Eyes: Pupils are equal, round, and reactive to light. No scleral icterus. Neck: Normal range of motion. Cardiovascular: Normal rate. Pulmonary/Chest: Effort normal. No stridor. Right chest HD catheter present with clean exit site Abdominal: Soft. Bowel sounds are normal. He exhibits no distension. There is no abdominal tenderness. Musculoskeletal: General: No edema. Neurological: He is alert and oriented to person, place, and time. Skin: Skin is warm and dry. No rash noted. He is not diaphoretic. No erythema. Left upper extremity AV fistula status post creation/wound healing well. LABS: Recent Labs Lab 01/10/2052101/08/205 01/07/20 0355 01/06/20 0452 WBC 8.64 8.71 8.83 7.59 HGB 7.4* 7.7* 8.4* 8.0* HCT 23.6* 24.0* 25.7* 24.1* PLT 194 195 214 197 MONOPCT 8.70 -- 8.60 8.30 Recent Labs Lab 01/10/20 0501/08/20 0435 01/07/20 0355 01/05/20 0518 01/04/20 2059 NA 134* 139 137 < > 137 < > 136 K 3.8 3.4* 3.4* < > 3.7 < > 3.9 CL 106 103 99 < > 102 < > 100 CO2 24 24 27 < > 22* < > 21* BUN 36* 51* 50* < > 109* < > 106* CREA 6.9* 7.72* 6.79* < > 11.47* < > 11.34* CALCIUM 8.0* 8.3* 7.9* < > 7.7* < > 8.0* ALKPHOS -- 93 -- -- 102 -- 113 ALT -- <7* -- -- 8* -- 9* AST -- <8* -- -- <8* -- <8* < > = values in this interval not displayed. Phosphorus: Recent Labs Lab 01/07/20 0355 PHOS 5.2* Recent Labs Lab 01/10/20 0522 01/06/20 0515 01/05/20 0518 MG 1.5* 1.5* 1.9 Disposition: Home under care of the family Follow up: Elpidio Gunter MD [address] [place] [id number] In 2 weeks For posthospitalization reevaluation [facility] [address] [facility] [phone] Go on 01/11/2020 Dialysis begins at 1:30 pm. Please arrive 15 minutes early to fill out paperwork. Yrn Buckley MD [address] [facility] [id number] In 1 week For posthospitalization reevaluation Discharge Medications New Medications Details senna 8.6 mg tablet Take 1 tablet by mouth Twice daily as needed for Constipation. aka: SENOKOT Changed Medications Details HUMULIN 70/30 100 units/mL injection Generic drug: insulin - MIX insulin NPH-insulin regular 70/30 Inject into the skin 2 (two) times daily before meals. What changed: how much to take additional instructions Unchanged Medications Details amLODIPine 5 mg tablet Take 5 mg by mouth Daily. aka: NORVASC atorvaSTATin 20 mg tablet Take 20 mg by mouth nightly. aka: LIPITOR calcium acetate 667 mg capsule Take 1 capsule by mouth 3 times daily (with meals). aka: PHOSLO metoprolol succinate 50 mg 24 hr tablet Take 50 mg by mouth daily. aka: TOPROL-XL sodium bicarbonate 650 mg tablet Take 1 tablet by mouth 3 times daily. Discontinued Medications hydroCHLOROthiazide 25 mg tablet Kamari Jessica MD 01/10/2020 9:45 PM Discharge took more than 35 minutes, to include final examination, discussion of admission, and preparation of prescriptions, instructions for ongoing care, follow up and dictation of summary. documented in this encounter Discharge Instructions Instructions Elpidio Gunter MD - 01/05/2020 Arteriovenous (AV) Fistula for Dialysis An AV [...] cuts, scrapes, or blows. Date Last Reviewed: 11/08/201619997135-0989 [email or web address]. [address] [place] [address]. All righ ts reserved. This information is not intended as a substitute for professional medical care. Always follow your healthcare professional's instructions. AttachmentsThe following attachments cannot be sent through Care Everywhere.Senna tablets o r capsules (Chinese)documented in this encounter Medications at Time of [...] + + + +---------+ + + | metoprolol | Take 50 mg by mouth | | 0 | 05/18/20 | | | succinate | daily. | | | 19 | 0 | | (TOPROL-XL) 50 mg 24 | | | | | | | hr tablet | | | | | | + + + +---------+ + + documented as of this encounter Progress Notes Eros Rothman MD - 01/09/2020 9:14 AM PST Hospital Problem List: Principal Problem: CKD (chronic kidney disease) stage 5, GFR less than 15 ml/min Active Problems: Type 2 diabetes mellitus with diabetic nephropathy, with long-term current use of insulin Anemia of chronic kidney failure, stage 5 Essential hypertension ESRD (end stage renal disease) The patient says that he feels 'ok' today. He denies any dizziness, cp, sob, abd pain, n/v . His urine output is low, but inaccurately measured. The following portions of the patient's history were reviewed and updated as appropriate: l aboratory data, radiologic studies, allergies, current medications, and problem list. Meds: amLODIPine 5 mg Oral Daily atorvaSTATin 20 mg Oral Nightly calcium acetate 667 mg Oral TID WC heparin 5,000 Units Subcutaneous 2 times per day insulin glargine 16 Units Subcutaneous Daily insulin lispro 0-6 Units Subcutaneous 4x Daily WC and HS insulin lispro 5 Units Subcutaneous TID WC metoprolol succinate 50 mg Oral Daily sodium bicarbonate 650 mg Oral TID dextrose 10% sodium chloride 0.9% 50 mL/hr at 01/09/20 0038 P.E. BP 128/72 | Pulse 83 | Temp 36.8 C (98.2 F) (Oral) | Resp 18 | Ht 1.829 m (6') | W t 83 kg (182 lb 15.7 oz) | SpO2 98% | BMI 24.82 kg/m General appearance: Pleasant, not in acute distress. Flat in bed comfortably. Lungs: Good A/E to auscultation bilaterally. There are no wheezes. Heart: Regular rate and rhythm without any rub, gallop. No murmur. Abdominal exam: Soft and nontender with normal bowel sounds. Extremities: Warm to touch with trace right leg edema. There is no cyanosis or clubbing. Neurological: Awake, alert, and oriented to time, place, and person. Normal gross motor po wer. There is no asterixis. Access: right tunneled IJ with good flow. Access #2: Left brachiocephalic fistula with good thrill. Recent Labs 01/08/20 0435 01/07/20 0355 BUN 51* 50* CREA 7.72* 6.79* EGFR 7* 9* NA 139 137 K 3.4* 3.4* CL 103 99 CO2 24 27 CALCIUM 8.3* 7.9* PHOS -- 5.2* ALBUMIN 3.2* 3.4* HGB 7.7* 8.4* HCT 24.0* 25.7* I/O last 3 completed shifts: In: 4431.7 [P.O.:1824; I.V.:2607.7] Out: 1225 [Urine:725] I/O this shift: In: - Out: 200 [Urine:200] Assessment: Mr. Henley is a 49 y.o. male patient with severe acute uremia (severe hyperphosphatemia, sever e anemia, nausea), including uremic encephalopathy (sleepiness; slow reaction; generalized w eakness). He now in ESRD. Electrolyte imbalance risk Hypokalemia Hyperphosphatemia Metabolic acidosis Hypoalbuminemia Anemia in ESRD Essential primary hypertension DM on insulin -He was admitted with Acute renal failure, unspecified acute renal failure type (HCC) [N17. 9] -He presented with Abnormal Lab (GFR [address] 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 Plan it for tomorrow No IVF need Vasoactive meds as ordered Monitor BP closely & frequently Reinforce lytes protocol Unrestricted K in the diet Strict low sodium & low phosphorus in the diet stressed Protein supplement stressed IV NALLELY with HD Strict I/O & daily weights. Dose all of meds to his intermittent HD & his severely low eGFR. Continue to avoid all kinds of nephrotoxins. Target euvolumia with a MAP>75 mmHg as possible. I discussed with the primary team the case after the time of this encounter. Eros Rothman MD Susan, Kamari Ruiz MD - 01/09/2020 7:56 AM PST [facility] Service: Hospitalist Progress Note Pt: Cely Henley AGE/SEX: 49 y.o. male : 1970 ROOM: [facility]/8102- HPC: " Patient Summary: 49-year-old male with history of type 2 diabetes, chronic kidney di sease is stage V, hypertension, seizure disorder who was admitted under the direction of Dr. Rothman because of worsening renal function. There was evidence of uremic encephalopathy and signs and symptoms of uremia. Patient was seen by vascular surgery who place a tunneled ca theter and planned AV fistula on 01/05/2020. Hemodialysis initiated subsequently. Events Overnight: Seen and examined patient. Diarrhea from yesterday resolved. Feels well b ut fatigued. No shortness of breath or chest pains. Pending DC when outpatient HD chair katelin ilable. Case discussed with nephrology Dr. Rothman."....per progress note by Dr. Dario GARCIA on 01/08/2020. TODAY'S DATE: 01/09/2020 Hospital Day: LOS: 4 days SUBJECTIVE: 01/09/2020: Patient is doing relatively well. Currently sitting in hospital bed without any complaints or distress. His next hemodialysis session is tomorrow. He is currently awaitin g chair time for his hemodialysis treatments on the outpatient basis. Case management and n ephrology has been involved in discharge planning with regards to this issue. Review of Systems: Review of Systems Constitutional: Negative for chills and fever. HENT: Negative for hearing loss and tinnitus. Eyes: Negative for blurred vision, double vision and photophobia. Cardiovascular: Negative for chest pain, palpitations and orthopnea. Gastrointestinal: Negative for abdominal pain, heartburn, melena, nausea and vomiting. Genitourinary: Negative for dysuria, frequency and urgency. Musculoskeletal: Negative for back pain, myalgias and neck pain. Skin: Negative for itching. Neurological: Negative for dizziness, tingling, tremors, seizures, weakness and headaches. Chronic foot drop; patient wears foot drop brace in the right lower extremity Psychiatric/Behavioral: Negative for depression and substance abuse. Scheduled Medications amLODIPine 5 mg Oral Daily atorvaSTATin 20 mg Oral Nightly calcium acetate 667 mg Oral TID WC heparin 5,000 Units Subcutaneous 2 times per day insulin glargine 16 Units Subcutaneous Daily insulin lispro 0-6 Units Subcutaneous 4x Daily WC and HS insulin lispro 5 Units Subcutaneous TID WC metoprolol succinate 50 mg Oral Daily sodium bicarbonate 650 mg Oral TID Continuous Infusions dextrose 10% sodium chloride 0.9% 50 mL/hr at 01/09/20 0038 PRN Medications acetaminophen, Hypoglycemia Management AND POCT Glucose AND dextrose AND dextro se 10%, docusate sodium, fentaNYL (PF), hydrALAZINE, HYDROcodone-acetaminophen, loperamide, melatonin, menthol throat lozenges, metoclopramide, metoclopramide, morphine, ondansetron, o ndansetron, ondansetron, phenol, prochlorperazine, senna, sodium chloride 0.9%, sodium chlor sierra 0.9% Allergy: No Known Allergies OBJECTIVE Vitals: Patient Vitals for the past 24 hrs: BP Temp Temp src Pulse Resp SpO2 Weight 01/09/20 0724 128/72 36.8 C (98.2 F) Oral 83 18 98 % 01/09/20 0557 83 kg (182 lb 15.7 oz) 01/09/20 0350 142/78 37.1 C (98.8 F) Oral 80 18 93 % 01/09/20 0048 37.6 C (99.7 F) Oral 01/08/20 2343 139/75 37.8 C (100.1 F) Oral 85 18 94 % 01/08/20 1916 134/74 37.1 C (98.7 F) Oral 81 18 94 % 01/08/20 1508 137/75 36.9 C (98.4 F) Oral 79 20 94 % 01/08/20 1136 136/72 36.8 C (98.3 F) Oral 87 20 95 % 01/08/20 1025 153/80 36.8 C (98.3 F) Oral 84 20 99 % 86.3 kg (190 lb 4.1 oz) 01/08/20 1019 140/80 84 20 98 % 01/08/20 1000 145/78 85 20 98 % 01/08/20 0945 141/77 84 20 97 % 01/08/20 0930 145/76 84 18 98 % 01/08/20 0915 137/73 86 18 97 % 01/08/20 0900 (!) 164/97 89 18 99 % 01/08/20 0845 160/89 88 18 99 % 01/08/20 0830 163/88 87 18 100 % 01/08/20 0815 (!) 136/91 86 20 99 % 01/08/20 0800 141/88 84 20 98 % I&O Detailed Table: Intake/Output Summary (Last 24 hours) at 01/09/2020 0756 Last data filed at 01/09/2020 0724 Gross per 24 hour Intake 2580 ml Output 1125 ml Net 1455 ml Patient Vitals for the past 96 hrs: Weight 01/09/20 0557 83 kg (182 lb 15.7 oz) 01/08/20 1025 86.3 kg (190 lb 4.1 oz) 01/08/20 0537 86.6 kg (190 lb 14.4 oz) 01/07/20 0249 85.8 kg (189 lb 3.2 oz) 01/06/20 1119 86.8 kg (191 lb 5.8 oz) 01/06/20 0830 87.4 kg (192 lb 10.9 oz) 01/06/20 0323 86.5 kg (190 lb 11.2 oz) 01/05/20 1430 92.5 kg (203 lb 14.8 oz) 01/05/20 1315 92.5 kg (203 lb 14.8 oz) Hemodynamics Last 24hrs: Examination: Physical Exam Constitutional: General: He is not in acute distress. HENT: Head: Normocephalic. Right Ear: There is no impacted cerumen. Nose: No congestion. Eyes: Pupils: Pupils are equal, round, and reactive to light. Cardiovascular: Rate and Rhythm: Normal rate. Rhythm irregular. Heart sounds: No murmur. Pulmonary: Effort: Pulmonary effort is normal. Abdominal: General: Abdomen is flat. There is no distension. Palpations: Abdomen is soft. Tenderness: There is no rebound. Musculoskeletal: General: No swelling. Right lower leg: No edema. Skin: General: Skin is warm. Capillary Refill: Capillary refill takes less than 2 seconds. Coloration: Skin is not jaundiced. Neurological: Mental Status: He is alert and oriented to person, place, and time. Cranial Nerves: No cranial nerve deficit. Psychiatric: Mood and Affect: Mood normal. LABS: Recent Labs Lab 01/08/20 0435 01/07/20 0355 01/06/20 0515 01/06/20 0452 01/05/20 0518 01/04/202058 WBC 8.71 8.83 -- 7.59 -- 8.23 -- 9.01 HGB 7.7* 8.4* -- 8.0* < > 6.7* -- 7.7* PLT 195 214 -- 197 -- 198 -- 239 NA 139 137 139 -- < > 137 < > 136 K 3.4* 3.4* 3.5 -- < > 3.7 < > 3.9 CL 103 99 102 -- < > 102 < > 100 CO2 24 27 22* -- < > 22* < > 21* ANIONGAP 15 14 19 -- < > 17 < > 19 BUN 51* 50* 83* -- < > 109* < > 106* CREA 7.72* 6.79* 9.76* -- < > 11.47* < > 11.34* GLU 78 130* 133* -- < > 157* < > 115* CALCIUM 8.3* 7.9* 8.0* -- < > 7.7* < > 8.0* MG -- -- 1.5* -- -- 1.9 -- -- PHOS -- 5.2* 7.4* -- -- -- -- -- ALBUMIN 3.2* 3.4* 3.3* -- -- 3.3* -- 3.7 AST <8* -- -- -- -- <8* -- <8* ALT <7* -- -- -- -- 8* -- 9* BILI 0.2 -- -- -- -- 0.2 -- 0.2 ALKPHOS 93 -- -- -- -- 102 -- 113 < > = values in this interval not displayed. Diagnostic: Xr Chest Pa And Lateral Result Date: 01/08/2020 CHEST PA AND LATERAL CLINICAL INFORMATION: Dyspnea. COMPARISON: None FINDINGS: Hyperinflati on. Heart size is normal. Lungs are clear. Right IJ MediPort tip mid SVC. Osteopenia wit h mild degenerative changes of the spine. Air-fluid levels in bowel loops in the upper abdo men, suggesting mild ileus. No free air. Hyperinflation, without infiltrate. Air-fluid levels in bowel in the upper abdomen. Correl ate for ileus. Signed by: Jerson Vences Shawn Sign Date/Time: 01/08/2020 2:13 PM Us Renal Limited Result Date: 01/05/2020 ULTRASOUND KIDNEYS AND BLADDER CLINICAL INFORMATION: Chronic kidney disease. COMPARISON: No ne PROCEDURE: Evaluation of the kidneys and urinary bladder. FINDINGS: Right kidney: 11.7 cm . No solid renal mass, hydronephrosis or definitive calculi. Left kidney: 10.2 cm. No solid renal mass, hydronephrosis or definitive calculi. Prominent renal pelvis. Bladder: Distende d with asymmetric wall thickening with the posterior wall measuring 7.6 mm, anterior wall me asuring 4.9 mm. Bilateral ureteral jets visualized. Postvoid residual 126 mL. Normal-size d prostate. 1. Thick-walled urinary bladder. Normal-sized prostate. 2. Mildly prominent left renal p leo without hydronephrosis at either kidney. Signed by: Jerson Guadarrama David Sign Date/Time : 01/05/2020 6:44 AM Vas Arm Bilateral Mapping For Dialysis Result Date: 01/01/2020 UPPER EXTREMITY VEIN MAPPING CLINICAL INFORMATION: Pre Dialysis. COMPARISON: None PROCEDURE : Duplex evaluation of the veins of the upper extremities. All measurements in mm. Top numbe r is depth of vein. Bottom number is diameter of vein. Measurements performed with tournique t. FINDINGS: Right side: Cephalic vein: Proximal 5.3, mid 5.0, elbow 5.5, upper forearm 3.7, mid forearm 3.9, distal forearm 3.7. Basilic vein: Proximal 6.1, mid 4.5, elbow 3.4, upper forearm 1.5. Left side: Cephalic vein: Proximal 7.0, mid 6.7, elbow 4.9, upper forearm 4.6, mid forearm 4.0, distal forearm 1.3. Basilic vein: Mid 4.6, elbow 6.0, upper forearm 4.6, mi d forearm 3.5, distal forearm 3.8. Bilateral upper extremity vein mapping. Measurements above. Signed by: Jerson Guadarrama David Sign Date/Time: 01/01/2020 6:41 AM Past Medical History: Diagnosis Date CKD (chronic kidney disease) stage 4, GFR 15-29 ml/min (HCC) Convulsive disorder (HCC) DM (diabetes mellitus), type 1, uncontrolled (HCC) HTN (hypertension) Proteinuria Past Surgical History: Procedure Laterality Date APPENDECTOMY AV FISTULA INSERTION Left 01/05/2020 Procedure: INSERTION AV FISTULA; Surgeon: Elpidio Gunter MD; Location: [facility] [place] MAIN OR OTHER SURGICAL HISTORY Left 2017 CATARACT EXTRACTION PROBLEM LIST Principal Problem: CKD (chronic kidney disease) stage 5, GFR less than 15 ml/min Active Problems: Type 2 diabetes mellitus with diabetic nephropathy, with long-term current use of insulin Anemia of chronic kidney failure, stage 5 Essential hypertension ESRD (end stage renal disease) ASSESSMENT & PLAN 49-year-old male with the followin. CKD stage V now transitioned to hemodialysis dependent status. Continue treatment per nephrology. Patient awaiting for outpatient chair time. Case management and nephrology working on t his issue. Patient received tunnel catheter and AV fistula placement on 01/05/2020. Continue current medical therapy as per nephrology Patient discussed with RN and case management staff during rounds. 2. Anemia of chronic disease/CKD stage V. Status post RBC transfusion on 12/28/2019 =1 unit. Further management of anemia per nephrology including IV iron and Epogen. 3. Type 2 diabetes mellitus. Currently on insulin Lantus 16 units nightly, 5 units of ins ulin lispro with meals and low-dose corrective sliding scale for q. before meals and nightly Accu-Cheks. Glucose levels have been ranging from 105-138-85, with patient consuming 100% of his ronen ls. Concern for hypoglycemia. Will decrease Lantus to 14 units subcutaneously nightly 4. History of hypertension. Continue amlodipine. 5. DVT prophylaxis: 5000 units every 12 hours. Kamari Jessica MD 01/09/2020 7:56 AM Bri Abarca D O - 01/08/2020 4:25 PM PST [facility] Service: Hospitalist Progress Note Hospital Day: LOS: 3 days SUBJECTIVE Patient Summary: 49-year-old male with history of type 2 diabetes, chronic kidney disease i s stage V, hypertension, seizure disorder who was admitted under the direction of Dr. Rothman because of worsening renal function. There was evidence of uremic encephalopathy and signs and symptoms of uremia. Patient was seen by vascular surgery who place a tunneled catheter and planned AV fistula on 01/05/2020. Hemodialysis initiated subsequently. Events Overnight: Seen and examined patient. Diarrhea from yesterday resolved. Feels well b ut fatigued. No shortness of breath or chest pains. Pending DC when outpatient HD chair katelin mon. Case discussed with nephrology Dr. Rothman. Scheduled Medications amLODIPine 5 mg Oral Daily atorvaSTATin 20 mg Oral Nightly calcium acetate 667 mg Oral TID WC heparin 5,000 Units Subcutaneous 2 times per day insulin glargine 16 Units Subcutaneous Daily insulin lispro 0-6 Units Subcutaneous 4x Daily WC and HS insulin lispro 5 Units Subcutaneous TID WC metoprolol succinate 50 mg Oral Daily sodium bicarbonate 650 mg Oral TID Continuous Infusions dextrose 10% sodium chloride 0.9% 50 mL/hr at 01/08/20 0546 PRN Medications acetaminophen, Hypoglycemia Management AND POCT Glucose AND dextrose AND dextro se 10%, docusate sodium, fentaNYL (PF), hydrALAZINE, HYDROcodone-acetaminophen, loperamide, melatonin, menthol throat lozenges, metoclopramide, metoclopramide, morphine, ondansetron, o ndansetron, ondansetron, phenol, prochlorperazine, senna, sodium chloride 0.9%, sodium chlor sierra 0.9% OBJECTIVE Vital Signs: Vitals: 01/08/20 1019 01/08/20 1025 01/08/20 1136 01/08/20 1508 BP: 140/80 153/80 136/72 137/75 Pulse: 84 84 87 79 Resp: Temp: 36.8 C (98.3 F) 36.8 C (98.3 F) 36.9 C (98.4 F) TempSrc: Oral Oral Oral SpO2: 98% 99% 95% 94% Weight: 86.3 kg (190 lb 4.1 oz) Height: Physical Exam General appearance: alert, appears stated age and cooperative. Pale. No distress. Speaking full sentences. Coherent. Head: Normocephalic, without obvious abnormality, atraumatic Neck: no adenopathy, no carotid bruit, no JVD, supple, symmetrical, trachea midline and thy roid not enlarged, symmetric, no tenderness/mass/nodules Lungs: clear to auscultation bilaterally Heart: regular rate and rhythm, S1, S2 normal, no murmur, click, rub or gallop Abdomen: soft, non-tender; bowel sounds normal; no masses, no organomegaly Extremities: extremities normal, atraumatic, no cyanosis or edema. Limited range of motion . Pulses: 2+ and symmetric Skin: Skin color, texture, turgor normal. No rashes or lesions Lymph nodes: Cervical, supraclavicular, and axillary nodes normal. DATA, personally reviewed Recent Labs Lab 01/08/20 0435 01/07/20 0355 01/06/20 0452 01/05/20 0518 WBC 8.71 8.83 7.59 -- 8.23 HGB 7.7* 8.4* 8.0* < > 6.7* HCT 24.0* 25.7* 24.1* < > 20.5* PLT 195 214 197 -- 198 MONOPCT -- 8.60 8.30 -- 7.50 < > = values in this interval not displayed. Recent Labs Lab 01/08/20 0435 01/07/20 0355 01/06/20 0515 01/05/20 0518 01/04/20 2059 NA 139 137 139 < > 137 < > 136 K 3.4* 3.4* 3.5 < > 3.7 < > 3.9 CL 103 99 102 < > 102 < > 100 CO2 24 27 22* < > 22* < > 21* BUN 51* 50* 83* < > 109* < > 106* CALCIUM 8.3* 7.9* 8.0* < > 7.7* < > 8.0* ALKPHOS 93 -- -- -- 102 -- 113 ALT <7* -- -- -- 8* -- 9* AST <8* -- -- -- <8* -- <8* < > = values in this interval not displayed. Lab Results Component Value Date CREA 7.72 (H) 01/08/2020 LABCREA 3.07 (A) 02/13/2019 Radiology, personally reviewed Us Renal Limited Result Date: 01/05/2020 ULTRASOUND KIDNEYS AND BLADDER CLINICAL INFORMATION: Chronic kidney disease. COMPARISON: No ne PROCEDURE: Evaluation of the kidneys and urinary bladder. FINDINGS: Right kidney: 11.7 cm . No solid renal mass, hydronephrosis or definitive calculi. Left kidney: 10.2 cm. No solid renal mass, hydronephrosis or definitive calculi. Prominent renal pelvis. Bladder: Distende d with asymmetric wall thickening with the posterior wall measuring 7.6 mm, anterior wall me asuring 4.9 mm. Bilateral ureteral jets visualized. Postvoid residual 126 mL. Normal-size d prostate. 1. Thick-walled urinary bladder. Normal-sized prostate. 2. Mildly prominent left renal p leo without hydronephrosis at either kidney. Signed by: Jerson Guadarrama, Eamon Sign Date/Time : 01/05/2020 6:44 AM PROBLEM LIST Principal Problem: CKD (chronic kidney disease) stage 5, GFR less than 15 ml/min Active Problems: Type 2 diabetes mellitus with diabetic nephropathy, with long-term current use of insulin Anemia of chronic kidney failure, stage 5 Essential hypertension ESRD (end stage renal disease) ASSESSMENT & PLAN Chronic kidney disease stage V now ESRD on HD Appreciate input from nephrology service. Patient now on hemodialysis. Appreciate input from vascular service. Patient received tunneled catheter and AV fistula placement on 01/05/2020. Continue PhosLo. Bicarb tablets 650 milligrams 3 times a day. Discussed with case management, working out outpatient HD chair Anemia of chronic disease Status post 1 unit packed RBC 01/05/2020. Epogen and iron infusion per nephrology service. Type 2 diabetes Continue Lantus 16 units and Humalog correctional scale. Currently, adequate sugar control. Hypertension Continue metoprolol. Diarrhea Resolved C diff negative. Prn immodium DVT prophylaxis: In place. GI prophylaxis: In place. Disposition: Inpatient. Can be discharged when HD chair available. Code Status: Full Code Bri Bishop DO 01/08/2020 4:25 PM Eros Delong MD - 01/07/2020 12:47 PM PST Hospital Problem List: Principal Problem: CKD (chronic kidney disease) stage 5, GFR less than 15 ml/min Active Problems: Type 2 diabetes mellitus with diabetic nephropathy, with long-term current use of insulin Anemia of chronic kidney failure, stage 5 Essential hypertension ESRD (end stage renal disease) The patient says that he feels 'ok' today. He denies any dizziness, cp, sob, abd pain, n/v . His urine output is low, but inaccurately measured. The following portions of the patient's history were reviewed and updated as appropriate: l aboratory data, radiologic studies, allergies, current medications, and problem list. Meds: amLODIPine 5 mg Oral Daily atorvaSTATin 20 mg Oral Nightly calcium acetate 667 mg Oral TID WC ferric gluconate 125 mg Intravenous Daily heparin 5,000 Units Subcutaneous 2 times per day influenza IM vaccine 0.5 mL Intramuscular One Time Vaccine insulin glargine 16 Units Subcutaneous Daily insulin lispro 0-6 Units Subcutaneous 4x Daily WC and HS insulin lispro 5 Units Subcutaneous TID WC metoprolol succinate 50 mg Oral Daily sodium bicarbonate 650 mg Oral TID dextrose 10% sodium chloride 0.9% 50 mL/hr at 01/07/20 0841 P.E. BP 145/81 | Pulse 84 | Temp 37 C (98.6 F) (Oral) | Resp 22 | Ht 1.829 m (6') | Wt 85.8 kg (189 lb 3.2 oz) | SpO2 96% | BMI 25.66 kg/m General appearance: Pleasant, not in acute distress. Lungs: Good A/E to auscultation bilaterally. There are no wheezes. Heart: Regular rate and rhythm without any rub, gallop. No murmur. Abdominal exam: Soft and nontender with normal bowel sounds. Extremities: Warm to touch with trace right leg edema. There is no cyanosis or clubbing. Neurological: Awake, alert, and oriented to time, place, and person. Normal gross motor po wer. There is no asterixis. Access: right tunneled IJ with good flow. Access #2: Left brachiocephalic fistula with good thrill. Recent Labs 01/07/20 0355 01/06/20 0515 01/06/20 0452 01/05/20 1537 01/05/20 1410 01/05/20 0825 01/05/20 0518 BUN 50* 83* -- -- 104* -- 109* CREA 6.79* 9.76* -- -- 11.37* -- 11.47* EGFR 9* 6* -- -- 5* -- 5* NA 137 139 -- -- 138 -- 137 K 3.4* 3.5 -- -- 3.7 -- 3.7 CL 99 102 -- -- 104 -- 102 CO2 27 22* -- -- 21* -- 22* CALCIUM 7.9* 8.0* -- -- 7.7* -- 7.7* PHOS 5.2* 7.4* -- -- -- -- -- MG -- 1.5* -- -- -- -- 1.9 ALBUMIN 3.4* 3.3* -- -- -- -- 3.3* HGB 8.4* -- 8.0* 7.8* -- -- 6.7* HCT 25.7* -- 24.1* 23* -- -- 20.5* IRON -- -- -- -- -- 30* -- I/O last 3 completed shifts: In: 2133.3 [P.O.:1828; I.V.:305.3] Out: 850 [Urine:350] I/O this shift: In: - Out: 200 [Urine:200] Assessment: Mr. Henley is a 49 y.o. male patient with severe acute uremia (severe hyperphosphatemia, sever e anemia, nausea), including uremic encephalopathy (sleepiness; slow reaction; generalized w eakness). He now in ESRD. Electrolyte imbalance risk Hypokalemia Hyperphosphatemia Metabolic acidosis Hypoalbuminemia Anemia in ESRD Essential primary hypertension DM on insulin -He was admitted with Acute renal failure, unspecified acute renal failure type (HCC) [N17. 9] -He presented with Abnormal Lab (GFR [address] 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 Plan it for tomorrow No IVF need Vasoactive meds as ordered Monitor BP closely & frequently Reinforce lytes protocol Strict low sodium & low phosphorus in the diet stressed Protein supplement stressed Strict I/O & daily weights. Dose all of meds to his intermittent HD & his severely low eGFR. Continue to avoid all kinds of nephrotoxins. Target euvolumia with a MAP>75 mmHg as possible. I discussed with the primary team the case after the time of this encounter. Eros Rothman MD pBri carnes DO - 01/07/2020 7:59 AM PST [facility] Service: Hospitalist Progress Note Hospital Day: LOS: 2 days SUBJECTIVE Patient Summary: 49-year-old male with history of type 2 diabetes, chronic kidney disease i s stage V, hypertension, seizure disorder who was admitted under the direction of Dr. Rothman because of worsening renal function. There was evidence of uremic encephalopathy and signs and symptoms of uremia. Patient was seen by vascular surgery who place a tunneled catheter and planned AV fistula on 01/05/2020. Hemodialysis initiated subsequently. Events Overnight: Seen and examined patient. Had several episodes of diarrhea overnight. C diff checked and GHD positive, toxin negative. Notes some continued nausea this morning whic h has resolved by lunchtime. No shortness of breath or chest pains. Still fatigued. Scheduled Medications amLODIPine 5 mg Oral Daily atorvaSTATin 20 mg Oral Nightly calcium acetate 667 mg Oral TID WC ferric gluconate 125 mg Intravenous Daily heparin 5,000 Units Subcutaneous 2 times per day influenza IM vaccine 0.5 mL Intramuscular One Time Vaccine insulin glargine 16 Units Subcutaneous Daily insulin lispro 0-6 Units Subcutaneous 4x Daily WC and HS insulin lispro 5 Units Subcutaneous TID WC metoprolol succinate 50 mg Oral Daily sodium bicarbonate 650 mg Oral TID Continuous Infusions dextrose 10% sodium chloride 0.9% 50 mL/hr at 01/06/202043 PRN Medications acetaminophen, Hypoglycemia Management AND POCT Glucose AND dextrose AND dextro se 10%, docusate sodium, fentaNYL (PF), hydrALAZINE, HYDROcodone-acetaminophen, loperamide, melatonin, menthol throat lozenges, metoclopramide, metoclopramide, morphine, ondansetron, o ndansetron, ondansetron, phenol, prochlorperazine, senna, sodium chloride 0.9% OBJECTIVE Vital Signs: Vitals: 01/07/20 0400 01/07/20 0500 01/07/20 0600 01/07/20 0700 BP: 141/83 Pulse: 85 85 86 87 Resp: 16 Temp: 37.1 C (98.8 F) TempSrc: Oral SpO2: 96% Weight: Height: Physical Exam General appearance: alert, appears stated age and cooperative. Pale. No distress. Speaking full sentences. Coherent. Head: Normocephalic, without obvious abnormality, atraumatic Neck: no adenopathy, no carotid bruit, no JVD, supple, symmetrical, trachea midline and thy roid not enlarged, symmetric, no tenderness/mass/nodules Lungs: clear to auscultation bilaterally Heart: regular rate and rhythm, S1, S2 normal, no murmur, click, rub or gallop Abdomen: soft, non-tender; bowel sounds normal; no masses, no organomegaly Extremities: extremities normal, atraumatic, no cyanosis or edema. Limited range of motion . Pulses: 2+ and symmetric Skin: Skin color, texture, turgor normal. No rashes or lesions Lymph nodes: Cervical, supraclavicular, and axillary nodes normal. DATA, personally reviewed Recent Labs Lab 01/07/20 0355 01/06/20 0452 01/05/20 1537 01/05/20 0518 WBC 8.83 7.59 -- 8.23 HGB 8.4* 8.0* 7.8* 6.7* HCT 25.7* 24.1* 23* 20.5* PLT 214 197 -- 198 MONOPCT 8.60 8.30 -- 7.50 Recent Labs Lab 01/07/20 0355 01/06/20 0515 01/05/20 1410 01/05/20 0518 01/04/20 2059 NA 137 139 138 137 < > 136 K 3.4* 3.5 3.7 3.7 < > 3.9 CL 99 102 104 102 < > 100 CO2 27 22* 21* 22* < > 21* BUN 50* 83* 104* 109* < > 106* CALCIUM 7.9* 8.0* 7.7* 7.7* < > 8.0* ALKPHOS -- -- -- 102 -- 113 ALT -- -- -- 8* -- 9* AST -- -- -- <8* -- <8* < > = values in this interval not displayed. Lab Results Component Value Date CREA 6.79 (H) 01/07/2020 LABCREA 3.07 (A) 02/13/2019 Radiology, personally reviewed Us Renal Limited Result Date: 01/05/2020 ULTRASOUND KIDNEYS AND BLADDER CLINICAL INFORMATION: Chronic kidney disease. COMPARISON: No ne PROCEDURE: Evaluation of the kidneys and urinary bladder. FINDINGS: Right kidney: 11.7 cm . No solid renal mass, hydronephrosis or definitive calculi. Left kidney: 10.2 cm. No solid renal mass, hydronephrosis or definitive calculi. Prominent renal pelvis. Bladder: Distende d with asymmetric wall thickening with the posterior wall measuring 7.6 mm, anterior wall me asuring 4.9 mm. Bilateral ureteral jets visualized. Postvoid residual 126 mL. Normal-size d prostate. 1. Thick-walled urinary bladder. Normal-sized prostate. 2. Mildly prominent left renal p leo without hydronephrosis at either kidney. Signed by: Jerson Guadarrama David Sign Date/Time : 01/05/2020 6:44 AM PROBLEM LIST Principal Problem: CKD (chronic kidney disease) stage 5, GFR less than 15 ml/min Active Problems: Type 2 diabetes mellitus with diabetic nephropathy, with long-term current use of insulin Anemia of chronic kidney failure, stage 5 Essential hypertension ESRD (end stage renal disease) ASSESSMENT & PLAN Chronic kidney disease stage V Patient might already be in end-stage renal disease. Appreciate input from nephrology service. Patient now on hemodialysis. Appreciate input from vascular service. Patient received tunneled catheter and AV fistula placement on 01/05/2020. Continue PhosLo. Bicarb tablets 650 milligrams 3 times a day. Discussed with case management, patient will require chair time when he is discharged. Anemia of chronic disease Status post 1 unit packed RBC 01/05/2020. Epogen and iron infusion per nephrology service. Type 2 diabetes Continue Lantus 16 units and Humalog correctional scale. Currently, adequate sugar control. Hypertension Continue metoprolol. Diarrhea Resolving. C diff negative. Prn immodium DVT prophylaxis: In place. GI prophylaxis: In place. Disposition: Inpatient. 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 Personal communication requested for any clarification. Bri Bishop DO 01/07/2020 7:59 AM Hayes Correa MD - 01/06/2020 9:40 AM PST [facility] Service: Hospitalist Progress Note Hospital Day: LOS: 1 day SUBJECTIVE Patient Summary: 49-year-old male with history of type 2 diabetes, chronic kidney dise ase is stage V, hypertension, seizure disorder who was admitted under the direction of Dr. Mitra hou because of worsening renal function. There was evidence of uremic encephalopathy and s igns and symptoms of uremia. Patient was seen by vascular surgery who place a tunneled cath eter and planned AV fistula on 01/05/2020. Hemodialysis initiated subsequently. Events Overnight: Seen and examined patient. Patient complained of poor sleep overnig ht. He feels very tired today otherwise, no shortness of breath or chest pains. He was hav ing hemodialysis during my encounter. Scheduled Medications amLODIPine 5 mg Oral Daily atorvaSTATin 20 mg Oral Nightly calcium acetate 667 mg Oral TID WC epoetin harry-epbx 10,000 Units Intravenous Dialysis - once ferric gluconate 125 mg Intravenous Daily heparin 4,000 Units Intracatheter Once heparin 5,000 Units Subcutaneous 2 times per day influenza IM vaccine 0.5 mL Intramuscular One Time Vaccine insulin glargine 16 Units Subcutaneous Daily insulin lispro 0-6 Units Subcutaneous 4x Daily WC and HS insulin lispro 5 Units Subcutaneous TID WC metoprolol succinate 50 mg Oral Daily sodium bicarbonate 650 mg Oral TID Continuous Infusions dextrose 10% sodium chloride 0.9% 50 mL/hr at 01/05/20 1500 PRN Medications acetaminophen, Hypoglycemia Management AND POCT Glucose AND dextrose AND dextro se 10%, docusate sodium, fentaNYL (PF), hydrALAZINE, HYDROcodone-acetaminophen, melatonin, m enthol throat lozenges, metoclopramide, metoclopramide, morphine, ondansetron, ondansetron, ondansetron, phenol, prochlorperazine, senna, sodium chloride 0.9% OBJECTIVE Vital Signs: Vitals: 01/06/20 0830 01/06/20 0849 01/06/20 0900 01/06/20 0915 BP: 155/86 155/84 147/86 142/79 Pulse: 85 83 83 83 Resp: 18 18 18 18 Temp: 36.9 C (98.4 F) TempSrc: Oral SpO2: 93% 92% 95% 95% Weight: 87.4 kg (192 lb 10.9 oz) Height: Physical Exam General appearance: alert, appears stated age and cooperative. Frail and fatigued looking. Pale. No distress. Speaking full sentences. Coherent. Head: Normocephalic, without obvious abnormality, atraumatic Neck: no adenopathy, no carotid bruit, no JVD, supple, symmetrical, trachea midline and thy roid not enlarged, symmetric, no tenderness/mass/nodules Lungs: clear to auscultation bilaterally Heart: regular rate and rhythm, S1, S2 normal, no murmur, click, rub or gallop Abdomen: soft, non-tender; bowel sounds normal; no masses, no organomegaly Extremities: extremities normal, atraumatic, no cyanosis or edema. Limited range of motion . Pulses: 2+ and symmetric Skin: Skin color, texture, turgor normal. No rashes or lesions Lymph nodes: Cervical, supraclavicular, and axillary nodes normal. DATA, personally reviewed Recent Labs Lab 01/06/20 0452 01/05/20 1537 01/05/2051701/04/202058 WBC 7.59 -- 8.23 9.01 HGB 8.0* 7.8* 6.7* 7.7* HCT 24.1* 23* 20.5* 23.2* PLT 197 -- 198 239 MONOPCT 8.30 -- 7.50 7.90 Recent Labs Lab 01/06/20 0515 01/05/20 1410 01/05/20 0518 01/04/20 2059 NA 139 138 137 < > 136 K 3.5 3.7 3.7 < > 3.9 CL 102 104 102 < > 100 CO2 22* 21* 22* < > 21* BUN 83* 104* 109* < > 106* CALCIUM 8.0* 7.7* 7.7* < > 8.0* ALKPHOS -- -- 102 -- 113 ALT -- -- 8* -- 9* AST -- -- <8* -- <8* < > = values in this interval not displayed. Lab Results Component Value Date CREA 9.76 (H) 01/06/2020 LABCREA 3.07 (A) 02/13/2019 Radiology, personally reviewed Us Renal Limited Result Date: 01/05/2020 ULTRASOUND KIDNEYS AND BLADDER CLINICAL INFORMATION: Chronic kidney disease. COMPARISON: No ne PROCEDURE: Evaluation of the kidneys and urinary bladder. FINDINGS: Right kidney: 11.7 cm . No solid renal mass, hydronephrosis or definitive calculi. Left kidney: 10.2 cm. No solid renal mass, hydronephrosis or definitive calculi. Prominent renal pelvis. Bladder: Distende d with asymmetric wall thickening with the posterior wall measuring 7.6 mm, anterior wall me asuring 4.9 mm. Bilateral ureteral jets visualized. Postvoid residual 126 mL. Normal-size d prostate. 1. Thick-walled urinary bladder. Normal-sized prostate. 2. Mildly prominent left renal p leo without hydronephrosis at either kidney. Signed by: Jerson Guadarrama David Sign Date/Time : 01/05/2020 6:44 AM PROBLEM LIST Principal Problem: CKD (chronic kidney disease) stage 5, GFR less than 15 ml/min Active Problems: Type 2 diabetes mellitus with diabetic nephropathy, with long-term current use of insulin Anemia of chronic kidney failure, stage 5 Essential hypertension ESRD (end stage renal disease) ASSESSMENT & PLAN Chronic kidney disease stage V Patient might already be in end-stage renal disease. Appreciate input from nephrology service. Patient now on hemodialysis day 2. Appreciate input from vascular service. Patient received tunneled catheter and AV fistula placement on 01/05/2020. Continue PhosLo. Bicarb tablets 650 milligrams 3 times a day. Discussed with case management, patient will require chair time when he is discharged. Anemia of chronic disease Status post 1 unit packed RBC 01/05/2020. Epogen and iron infusion per nephrology service. Type 2 diabetes Continue Lantus 16 units and Humalog correctional scale. Currently, adequate sugar control. Hypertension Continue metoprolol. DVT prophylaxis: In place. GI prophylaxis: In place. Disposition: Inpatient. 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 Personal communication requested for any clarification. Hayes Mason MD 01/06/2020 9:40 AM Hayes Correa MD - 0 01/05/2020 7:48 AM PST [facility] Service: Hospitalist Progress Note Hospital Day: LOS: 0 days SUBJECTIVE Patient Summary: 49-year-old male with history of type 2 diabetes, chronic kidney dise ase is stage V, hypertension, seizure disorder who was admitted under the direction of Dr. Mitra hou because of worsening renal function. There was evidence of uremic encephalopathy and s igns and symptoms of uremia. Patient was seen by vascular surgery who place a tunneled cath eter and planned AV fistula on 01/05/2020. Hemodialysis initiated subsequently. Events Overnight: Seen and examined patient. Overall, he feels weak but otherwise no major complaints. Some degree of lightheadedness but tolerable. No nausea or vomiting. No abdominal pain. Scheduled Medications amLODIPine 5 mg Oral Daily atorvaSTATin 20 mg Oral Nightly calcium acetate 667 mg Oral TID WC heparin 5,000 Units Subcutaneous 2 times per day influenza IM vaccine 0.5 mL Intramuscular One Time Vaccine insulin glargine 16 Units Subcutaneous Daily insulin lispro 0-6 Units Subcutaneous 4x Daily WC and HS insulin lispro 5 Units Subcutaneous TID WC metoprolol succinate 50 mg Oral Daily sodium bicarbonate 650 mg Oral TID Continuous Infusions dextrose 10% PRN Medications acetaminophen, Hypoglycemia Management AND POCT Glucose AND dextrose AND dextro se 10%, hydrALAZINE, melatonin, morphine, ondansetron OBJECTIVE Vital Signs: Vitals: 01/04/20 2254 01/05/20 0013 01/05/20 0339 01/05/20 0730 BP: 154/87 140/75 (!) 162/91 (!) 152/91 Pulse: 82 87 87 88 Resp: 17 Temp: 37 C (98.6 F) 37 C (98.6 F) 37.2 C (98.9 F) 36.3 C (97.3 F) TempSrc: Oral Oral Oral Oral SpO2: 98% 98% 96% 97% Weight: 89.5 kg (197 lb 6.4 oz) Height: Physical Exam General appearance: alert, appears stated age and cooperative. Frail and fatigued looking. Pale. No distress. Speaking full sentences. Head: Normocephalic, without obvious abnormality, atraumatic Neck: no adenopathy, no carotid bruit, no JVD, supple, symmetrical, trachea midline and thy roid not enlarged, symmetric, no tenderness/mass/nodules Lungs: clear to auscultation bilaterally Heart: regular rate and rhythm, S1, S2 normal, no murmur, click, rub or gallop Abdomen: soft, non-tender; bowel sounds normal; no masses, no organomegaly Extremities: extremities normal, atraumatic, no cyanosis or edema. Limited range of motion . Pulses: 2+ and symmetric Skin: Skin color, texture, turgor normal. No rashes or lesions Lymph nodes: Cervical, supraclavicular, and axillary nodes normal. DATA, personally reviewed Recent Labs Lab 01/05/2051701/04/20205801/02/20 WBC 8.23 9.01 -- HGB 6.7* 7.7* 7.5* HCT 20.5* 23.2* -- PLT 198 239 -- MONOPCT 7.50 7.90 6.3 Recent Labs Lab 01/05/2051701/05/20 0023 01/04/202058 NA 137 136 136 K 3.7 3.8 3.9 CL 102 101 100 CO2 22* 21* 21* BUN 109* 106* 106* CALCIUM 7.7* 7.9* 8.0* ALKPHOS 102 -- 113 ALT 8* -- 9* AST <8* -- <8* Lab Results Component Value Date CREA 11.37 (H) 01/05/2020 LABCREA 3.07 (A) 02/13/2019 Radiology, personally reviewed Us Renal Limited Result Date: 01/05/2020 ULTRASOUND KIDNEYS AND BLADDER CLINICAL INFORMATION: Chronic kidney disease. COMPARISON: No ne PROCEDURE: Evaluation of the kidneys and urinary bladder. FINDINGS: Right kidney: 11.7 cm . No solid renal mass, hydronephrosis or definitive calculi. Left kidney: 10.2 cm. No solid renal mass, hydronephrosis or definitive calculi. Prominent renal pelvis. Bladder: Distende d with asymmetric wall thickening with the posterior wall measuring 7.6 mm, anterior wall me asuring 4.9 mm. Bilateral ureteral jets visualized. Postvoid residual 126 mL. Normal-size d prostate. 1. Thick-walled urinary bladder. Normal-sized prostate. 2. Mildly prominent left renal p leo without hydronephrosis at either kidney. Signed by: Jerson Guadarrama David Sign Date/Time : 01/05/2020 6:44 AM PROBLEM LIST Principal Problem: CKD (chronic kidney disease) stage 5, GFR less than 15 ml/min Active Problems: Type 2 diabetes mellitus with diabetic nephropathy, with long-term current use of insulin Anemia of chronic kidney failure, stage 5 Essential hypertension ASSESSMENT & PLAN Chronic kidney disease stage V Patient might already be in end-stage renal disease. Appreciate input from nephrology service. Patient will initiate hemodialysis today. Appreciate input from vascular service. Patient received tunneled catheter today. He will also have AV fistula patient. Continue PhosLo. Bicarb tablets 650 milligrams 3 times a day. Discussed with case management, patient will require chair time when he is discharged. Anemia of chronic disease Because of anticipated AV fistula surgery, will give 1 unit of packed RBC. Epogen and iron infusion per nephrology service. Type 2 diabetes Continue Lantus 16 units and Humalog correctional scale. Hypertension Continue metoprolol. DVT prophylaxis: In place. GI prophylaxis: In place. Disposition: Inpatient. 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 Personal communication requested for any clarification. Hayes Mason MD 01/05/2020 7:48 AM Nicholas Cortez P harmD - 01/05/2020 6:49 AM PSTClinical Pharmacy Note - Therapeutic Intervention Non-formulary Medication: Novolin 70/30 20 units SC twice daily Therapeutic Interchange: Lantus 16 units SC once daily and Humalog 5 units SC TID with ronen ls. Therapeutic interchange performed by pharmacy per P & T committee. NICHOLAS PUENTES PharmD, Pharmacist 01/05/2020 6:17 AM documented in this encounter H&P Notes Elpidio Gunter MD - 01/05/2020 9:14 AM [facility] Service: Vascular Surgery Pre-Operative History & Physical Interval Update Significant clinical changes have occurred as noted: Patient now with acute on chronic parvez al failure. Will need to start dialysis. He has chosen hemodialysis as mode for dialysis. Will plan for tunneled dialysis catheter with fistula creation this afternoon. PARQ was do ne and consent was obtained. Moderate Sedation Presedation Assessment completed. The patient was reassessed immediatlely prior to sedation with no significant clinical changes in the exam, including heart and eveline gs, since the completion of the H&P. Elpidio Gunter MD 01/05/2020 Nichole Mendoza MD - 01/04/2020 11:08 PM PST Patient Name: Cely Henley Date of Admission: 01/04/2020 Referring Provider: Dr Wilson Reason for admission: Worsening kidney disease Chief Complaint: Abnormal labs HPI: Patient of a 49-year-old male with a significant past medical history of chronic kidney dis ease stage V, diabetes mellitus, hypertension, seizure disorder who comes in with worsening renal function Patient with history of stage V chronic kidney disease in the background of a longstanding diabetes and hypertension. Kidney disease a thought to be related to diabetic nephropathy a nd/or hypertensive nephrosclerosis who follows with Dr Rothman, nephrology, and was sent to [facility] emergency department due to uremia and concerns for uremic encephalopathy. Patient refers that he has been quite compliant with his diet, medications, and glucose mon itoring but unfortunately, due to unknown reasons to him, his kidney function has been getti ng progressively worse. Patient was seen by Dr Rothman who informed him of his worsening placido l function and was told to come to emergency department for further management. Patient den ies any recent chest pain, dyspnea, cough or sputum production. Positive nausea and vomitin g x1, mainly liquid and bile. Denies any episodes of hematemesis or hematochezia. No recen t abdominal pain, diarrhea, dysuria or hematuria. No recent fever, chills or night sweats. In the emergency department, the patient has remained hemodynamically stable. EKG shows si nus rhythm without any acute ST changes. ED provider already consulted nephrology Dr Rothman. Patient will be admitted under the hospital service for further management PMH: Past Medical History: Diagnosis Date CKD (chronic kidney disease) stage 4, GFR 15-29 ml/min (HCC) Convulsive disorder (HCC) DM (diabetes mellitus), type 1, uncontrolled (HCC) HTN (hypertension) Proteinuria PSH: Past Surgical History: Procedure Laterality Date APPENDECTOMY OTHER SURGICAL HISTORY Left 2018 CATARACT EXTRACTION Medications: No current facility-administered medications on file prior to encounter. Current Outpatient Medications on File Prior to Encounter Medication Sig Dispense Refill amLODIPine (NORVASC) 5 mg tablet atorvaSTATin (LIPITOR) 20 mg tablet Take 20 mg by mouth nightly. calcium acetate (CALCIUM ACETATE) 667 mg capsule Take 1 capsule by mouth 3 times daily (with meals). 90 capsule 11 hydroCHLOROthiazide 25 mg tablet insulin - MIX insulin NPH-insulin regular 70/30 (HUMULIN 70/30) 100 units/mL injection Inject into the skin 2 (two) times daily before meals. metoprolol succinate (TOPROL-XL) 50 mg 24 hr tablet Take 50 mg by mouth daily. sodium bicarbonate 650 mg tablet Take 1 tablet by mouth 3 times daily. 90 tablet 11 Allergies: No Known Allergies FH: family history includes Arthritis in his sister; Asthma in his sister; Diabetes in his moth er and sister; Other (see comment) in his mother; Prostate cancer in his father; Thyroid dis ease in his sister. SH: reports that he has quit smoking. His smoking use included cigarettes. He has never used [employer] tobacco. He reports previous alcohol use. He reports that he does not use drugs. Review of Systems Constitutional: Positive for malaise/fatigue. Negative for chills and fever. HENT: Negative for congestion. Respiratory: Negative for cough, hemoptysis, sputum production and shortness of breath. Cardiovascular: Negative for chest pain, orthopnea, claudication and leg swelling. Gastrointestinal: Positive for nausea and vomiting. Negative for abdominal pain, blood in s tool, heartburn and melena. Genitourinary: Negative for dysuria and urgency. Musculoskeletal: Negative for myalgias. Neurological: Negative for dizziness and headaches. Psychiatric/Behavioral: Negative for depression. Physical Exam: BP 154/87 | Pulse 82 | Temp 37 C (98.6 F) (Oral) | Resp 16 | Ht 1.829 m (6') | Wt 90.1 kg (198 lb 10.2 oz) | SpO2 98% | BMI 26.94 kg/m Physical Exam Constitutional: He is oriented to person, place, and time. He appears well-developed. HENT: Head: Normocephalic and atraumatic. Eyes: Pupils are equal, round, and reactive to light. No scleral icterus. Neck: Normal range of motion. No JVD present. Cardiovascular: Normal rate. Exam reveals no friction rub. No murmur heard. Pulmonary/Chest: Effort normal. No respiratory distress. He has no wheezes. He has no rales . Abdominal: Soft. He exhibits no distension. There is no abdominal tenderness. There is no r ebound. Musculoskeletal: General: Edema (mild) present. Neurological: He is alert and oriented to person, place, and time. Labs: Recent Results (from the past 24 hour(s)) CBC with Differential Result Value Ref Range WBC 9.01 3.80 - 11.00 K/uL RBC 2.71 (L) 4.20 - 5.70 M/uL Hemoglobin 7.7 (L) 13.2 - 17.0 g/dL Hematocrit 23.2 (L) 39.0 - 50.0 % MCV 85.6 80.0 - 100.0 fl MCH 28.4 27.0 - 34.0 pg MCHC 33.2 32.0 - 35.5 g/dL RDW-SD 42.5 37 - 53 fl Platelet Count 239 150 - 400 K/uL MPV 11.5 fl Diff Type AUTOMATED % nRBC 0.0 0 /100WBC % Neutrophils 69.70 % IMMATURE GRANULOCYTE 0.60 % % Lymphocytes 17.50 % Monocyte % 7.90 % Eosinophils % 3.60 % Basophils % 0.70 % Neutrophils, Absolute 6.29 1.90 - 7.40 K/uL IMMATURE GRANS AB 0.05 0.00 - 0.07 K/uL Absolute Lymphocytes 1.58 1.00 - 3.90 K/uL Absolute Monocytes 0.71 0.00 - 0.80 K/uL Eosinophils, Absolute 0.32 0.00 - 0.50 K/uL Basophils, Absolute 0.06 0.00 - 0.10 K/uL Comprehensive Metabolic Panel Result Value Ref Range Na 136 135 - 145 mmol/L K 3.9 3.5 - 4.9 mmol/L Cl 100 99 - 109 mmol/L CO2 21 (L) 23 - 32 mmol/L Anion Gap 19 5 - 20 mmol/L Glucose 115 (H) 65 - 99 mg/dL BUN 106 (H) 8 - 25 mg/dL Creatinine 11.34 (H) 0.70 - 1.30 mg/dL BUN/Creatinine Ratio 9 Calcium 8.0 (L) 8.5 - 10.5 mg/dL Protein, Total 6.9 6.3 - 8.2 g/dL Albumin 3.7 3.6 - 5.0 g/dL Globulin 3.2 1.3 - 4.9 g/dL A/G Ratio 1.2 1.0 - 2.4 BILIRUBIN, TOTAL 0.2 0.1 - 1.5 mg/dL ALK PHOS 113 35 - 115 U/L AST <8 (L) 10 - 45 U/L ALT 9 (L) 10 - 65 U/L Estimated GFR 5 (L) >60 mL/min/1.73m2 CK Total Result Value Ref Range CK TOTAL 126 55 - 400 U/L Problem List: Active Problems: * No active hospital problems. * Impression Patient of a 49-year-old male with a significant past medical history of chronic kidney dis ease stage V, diabetes mellitus, hypertension, seizure disorder who comes in with worsening renal function -EKG-normal sinus rhythm, no acute ST changes, no peak T waves. No interval changes Assessment -Worsening severe chronic kidney disease stage V. Nephrology Dr Rothman. EKG with no signs of potassium toxicity, mild hypervolemia/close to euvolemia and no signs of pulmonary edema. -Diabetes type 1. Controlled with insulin 70/30 20 units twice a day with his meals -Hypertension -Hx of seizure disorder Plan Admit inpatient ED provider already consulted nephrology, Dr Rothman, for? Need for urgent renal replacement therapy Telemetry EKG in a.m. BMP every 6 hours. 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 Subjective Subjective Mr. Henley is a pleasant 49 y.o. male with PMH significant for CKD, diabetes, and hypertension who is referred to me for PD catheter placement. Patient's kidneys are failing and he was r eferred to vascular surgery for dialysis access creation. Patient reports that he was recomm ended by Dr. Rothman, nephrology to get a PD catheter placed. He states that he does not know much information on PD. Patient reports a history of appendectomy over 10 years ago. Past Medical History: Diagnosis Date CKD (chronic kidney disease) stage 4, GFR 15-29 ml/min (HCC) Convulsive disorder (HCC) DM (diabetes mellitus), type 1, uncontrolled (HCC) HTN (hypertension) Proteinuria Past Surgical History: Procedure Laterality Date APPENDECTOMY OTHER SURGICAL HISTORY Left 2018 CATARACT EXTRACTION Social History Tobacco Use Smoking status: Former Smoker Smokeless tobacco: Never Used Substance Use Topics Alcohol use: Not Currently Drug use: Not on file Comment: no Family History Problem Relation Age of Onset Diabetes Mother Other (see comment) Mother Renal Disease Prostate cancer Father Asthma Sister Diabetes Sister Arthritis Sister Thyroid disease Sister Current Outpatient Medications on File Prior to Visit Medication Sig Dispense Refill amLODIPine (NORVASC) 10 MG tablet 5 mg. 0 amLODIPine (NORVASC) 5 mg tablet atorvaSTATin (LIPITOR) 20 mg tablet Take 20 mg by mouth nightly. calcium acetate (CALCIUM ACETATE) 667 mg capsule Take 1 capsule by mouth 3 times daily (with meals). 90 capsule 11 hydroCHLOROthiazide 25 mg tablet insulin - MIX insulin NPH-insulin regular 70/30 (HUMULIN 70/30) 100 units/mL injection Inject into the skin 2 (two) times daily before meals. metoprolol succinate (TOPROL-XL) 50 mg 24 hr tablet Take 50 mg by mouth daily. sodium bicarbonate 650 mg tablet Take 1 tablet by mouth 3 times daily. 90 tablet 11 No current facility-administered medications on file prior to visit. No Known Allergies Comprehensive ROS performed and pertinent items described in the HPI. Objective Objective BP (!) 168/96 | Pulse 70 | SpO2 99% Vitals:reviewed CONSTITUTIONAL: Conversant, well developed, NAD EYES: Anicteric sclerae, no lid drag, no proptosis RESP: Normal effort, regular, even, unlabored rate CV: No peripheral edema, rate regular SKIN: [place], warm, dry without rash/lesion MS: ROM not limited, no digital cyanosis, normal gait NEURO: Cranial nerves II-XII grossly intact, A&O times 3 PSYCH: appropriate affect, speech and tone, judgement and insight intact Vascular: Palpable radial and brachial pulses bilaterally. Assessment Assessment and Plan Discussed the risks and benefits of PD placement. Discussed the lifestyle changes that are required for PD. I advised the patient to attend a class on PD placement then scheduling the procedure when he makes a decision on hemodialysis or PD. All questions and concerns addres sed. Patient will follow up as needed. Patient understands and is agreeable. Attending Note: Documentation assistance provided by Fernanda Greenfield (Scribe) . Information recorded by the scribe has been reviewed and validated by me. I agree with its contents. Signed by: Fernanda Greenfield, Charo 12/21/19, 2:52 PM Elpidio Gunter MD documented in this enc ounter Procedure Notes Eros Rothman MD - 01/10/2020 9:53 AM PSTAssociated Order(s): HEMODIALYSISFormatting of t his note might be different from the original. Hospital Problem List: Principal Problem: CKD (chronic kidney disease) stage 5, GFR less than 15 ml/min Active Problems: Type 2 diabetes mellitus with diabetic nephropathy, with long-term current use of insulin Anemia of chronic kidney failure, stage 5 Essential hypertension ESRD (end stage renal disease) The patient is seen & examined during dialysis; he says that he feels 'ok' today; he denie s any dizziness, cp, sob, abd pain, n/v. U/O is lower vs last week. The following portions of the patient's history were reviewed and updated as appropriate: l aboratory data, allergies, current medications, and problem list. Current Meds: amLODIPine 5 mg Oral Daily atorvaSTATin 20 mg Oral Nightly calcium acetate 667 mg Oral TID WC heparin 3,400 Units Intracatheter Once heparin 5,000 Units Subcutaneous 2 times per day insulin glargine 14 Units Subcutaneous Daily insulin lispro 0-6 Units Subcutaneous 4x Daily WC and HS insulin lispro 5 Units Subcutaneous TID WC metoprolol succinate 50 mg Oral Daily sodium bicarbonate 650 mg Oral TID dextrose 10% sodium chloride 0.9% 1,000 mL (01/09/202026) P.E. BP 150/86 | Pulse 88 | Temp 37.2 C (99 F) (Oral) | Resp 20 | Ht 1.829 m (6') | Wt 82 kg (180 lb 12.4 oz) | SpO2 96% | BMI 24.52 kg/m General appearance: Pleasant, not in acute distress. Flat in bed comfortably. Lungs: Good A/E to auscultation bilaterally. There are no wheezes. Heart: Regular rate and rhythm without any rub, gallop. No murmur. Abdominal exam: Soft and nontender with normal bowel sounds. Extremities: Warm to touch with trace right leg edema. There is no cyanosis. Neurological: Awake, alert, and oriented to time, place, and person. Normal gross motor po wer. There is no asterixis. Access: right tunneled IJ with good flow. Access #2: Left brachiocephalic fistula with good thrill. Recent Labs 01/10/20 0522 01/08/20 0435 BUN 36* 51* CREA 6.9* 7.72* EGFR 9* 7* NA 134* 139 K 3.8 3.4* CL 106 103 CO2 24 24 CALCIUM 8.0* 8.3* MG 1.5* -- ALBUMIN -- 3.2* HGB 7.4* 7.7* HCT 23.6* 24.0* I/O last 3 completed shifts: In: 2819 [P.O.:1630; I.V.:1189] Out: 750 [Urine:750] No intake/output data recorded. Assessment: Mr. Henley is a 49 y.o. male patient with severe acute uremia (severe hyperphosphatemia, sever e anemia, nausea), including uremic encephalopathy (sleepiness; slow reaction; generalized w eakness). requiring acute dialysis. He now is likely in ESRD. High risk for electrolytes imbalance Anemia in ESRD Tolerating dialysis well. Access: no issues. Complications identified during his dialysis treatment: None. Recommendations: UF: minimal as tolerated. Vasoactive meds as ordered. NALLELY IV as ordered. K restriction to 3g a day. Na restriction 2g a day. Will consider stopping the NaHCO3. Next dialysis treatment is MWF per the submitted pre-sandoval orders. Eros Rothman MD koum, Eros Simon MD - 12/2019 9:39 AM PSTAssociated Order(s): HEMODIALYSISFormatting of this note might be differ ent from the original. Hospital Problem List: Principal Problem: CKD (chronic kidney disease) stage 5, GFR less than 15 ml/min Active Problems: Type 2 diabetes mellitus with diabetic nephropathy, with long-term current use of insulin Anemia of chronic kidney failure, stage 5 Essential hypertension ESRD (end stage renal disease) The patient is seen & examined during dialysis. he says that he feels 'ok' today. he denie s any dizziness, cp, sob, abd pain, n/v. U/O is lower vs last week. The following portions of the patient's history were reviewed and updated as appropriate: l aboratory data, allergies, current medications, and problem list. Current Meds: amLODIPine 5 mg Oral Daily atorvaSTATin 20 mg Oral Nightly calcium acetate 667 mg Oral TID WC ferric gluconate 125 mg Intravenous Daily heparin 4,000 Units Intracatheter Once heparin 5,000 Units Subcutaneous 2 times per day influenza IM vaccine 0.5 mL Intramuscular One Time Vaccine insulin glargine 16 Units Subcutaneous Daily insulin lispro 0-6 Units Subcutaneous 4x Daily WC and HS insulin lispro 5 Units Subcutaneous TID WC metoprolol succinate 50 mg Oral Daily sodium bicarbonate 650 mg Oral TID dextrose 10% sodium chloride 0.9% 50 mL/hr at 01/08/20 0546 P.E. BP 145/76 | Pulse 84 | Temp 37.1 C (98.7 F) (Oral) | Resp 18 | Ht 1.829 m (6') | W t 86.6 kg (190 lb 14.4 oz) | SpO2 98% | BMI 25.89 kg/m General appearance: Pleasant, not in acute distress. Lungs: Good A/E to auscultation bilaterally. There are no wheezes. Heart: Regular rate and rhythm without any rub, gallop. No murmur. Abdominal exam: Soft and nontender with normal bowel sounds. Extremities: Warm to touch with trace right leg edema. There is no cyanosis. Neurological: Awake, alert, and oriented to time, place, and person. Normal gross motor po wer. There is no asterixis. Access: right tunneled IJ with good flow. Access #2: Left brachiocephalic fistula with good thrill. Recent Labs 01/08/20 0435 01/07/20 0355 01/06/20 0515 01/06/20 0452 BUN 51* 50* 83* -- CREA 7.72* 6.79* 9.76* -- EGFR 7* 9* 6* -- NA 139 137 139 -- K 3.4* 3.4* 3.5 -- CL 103 99 102 -- CO2 24 27 22* -- CALCIUM 8.3* 7.9* 8.0* -- PHOS -- 5.2* 7.4* -- MG -- -- 1.5* -- ALBUMIN 3.2* 3.4* 3.3* -- HGB 7.7* 8.4* -- 8.0* HCT 24.0* 25.7* -- 24.1* I/O last 3 completed shifts: In: 2779 [P.O.:1122; I.V.:1657] Out: 700 [Urine:700] No intake/output data recorded. Assessment: Mr. Henley is a 49 y.o. male patient with severe acute uremia (severe hyperphosphatemia, sever e anemia, nausea), including uremic encephalopathy (sleepiness; slow reaction; generalized w eakness). requiring acute dialysis. He now is likely in ESRD. High risk for electrolytes imbalance Anemia in ESRD Tolerating dialysis well. Access: no issues. Complications identified during his dialysis treatment: None. Recommendations: UF: minimal as tolerated. NALLELY IV as ordered. Unrestrict K up to 3g a day. Next dialysis treatment is 01/08/20 per the submitted pre-sandoval orders. Eros Rothman MD [facility], Eros Simon MD - 9:07 AM PSTAssociated Order(s): HEMODIALYSISFormatting of this note might be differ ent from the original. Hospital Problem List: Principal Problem: CKD (chronic kidney disease) stage 5, GFR less than 15 ml/min Active Problems: Type 2 diabetes mellitus with diabetic nephropathy, with long-term current use of insulin Anemia of chronic kidney failure, stage 5 Essential hypertension ESRD (end stage renal disease) The patient is seen & examined during dialysis. he says that he feels 'ok' today. he denie s any dizziness, cp, sob, abd pain, n/v. The following portions of the patient's history were reviewed and updated as appropriate: l aboratory data, allergies, current medications, and problem list. Current Meds: amLODIPine 5 mg Oral Daily atorvaSTATin 20 mg Oral Nightly calcium acetate 667 mg Oral TID WC epoetin harry-epbx 10,000 Units Intravenous Dialysis - once ferric gluconate 125 mg Intravenous Daily heparin 4,000 Units Intracatheter Once heparin 5,000 Units Subcutaneous 2 times per day influenza IM vaccine 0.5 mL Intramuscular One Time Vaccine insulin glargine 16 Units Subcutaneous Daily insulin lispro 0-6 Units Subcutaneous 4x Daily WC and HS insulin lispro 5 Units Subcutaneous TID WC metoprolol succinate 50 mg Oral Daily sodium bicarbonate 650 mg Oral TID dextrose 10% sodium chloride 0.9% 50 mL/hr at 01/05/20 1500 P.E. BP 166/87 | Pulse 85 | Temp 36.7 C (98 F) (Oral) | Resp 19 | Ht 1.829 m (6') | Wt 86.5 kg (190 lb 11.2 oz) | SpO2 98% | BMI 25.86 kg/m General appearance: Pleasant, not in acute distress. Lungs: Good A/E to auscultation bilaterally. There are no wheezes. Heart: Regular rate and rhythm without any rub, gallop. No murmur. Abdominal exam: Soft and nontender with normal bowel sounds. Extremities: Warm to touch with trace right leg edema. There is no cyanosis. Neurological: Awake, alert, and oriented to time, place, and person. Normal gross motor po wer. There is no asterixis. Access: right tunneled IJ with good flow. Access #2: Left brachiocephalic fistula with good thrill. Recent Labs 01/06/20 0515 01/06/20 0452 01/05/20 1537 01/05/20 1410 01/05/20 0825 01/05/20 0518 01/04/209 BUN 83* -- -- 104* -- 109* < > 106* CREA 9.76* -- -- 11.37* -- 11.47* < > 11.34* EGFR 6* -- -- 5* -- 5* < > 5* NA 139 -- -- 138 -- 137 < > 136 K 3.5 -- -- 3.7 -- 3.7 < > 3.9 CL 102 -- -- 104 -- 102 < > 100 CO2 22* -- -- 21* -- 22* < > 21* CALCIUM 8.0* -- -- 7.7* -- 7.7* < > 8.0* PHOS 7.4* -- -- -- -- -- -- -- MG 1.5* -- -- -- -- 1.9 -- -- ALBUMIN 3.3* -- -- -- -- 3.3* -- 3.7 HGB -- 8.0* 7.8* -- -- 6.7* -- 7.7* HCT -- 24.1* 23* -- -- 20.5* -- 23.2* IRON -- -- -- -- 30* -- -- -- < > = values in this interval not displayed. I/O last 3 completed shifts: In: 1099 [P.O.:750; Blood:349] Out: 1120 [Urine:1100] I/O this shift: In: 118 [P.O.:118] Out: - Assessment: Mr. Henley is a 49 y.o. male patient with severe acute uremia (severe hyperphosphatemia, sever e anemia, nausea), including uremic encephalopathy (sleepiness; slow reaction; generalized w eakness). requiring acute dialysis. He now is likely in ESRD. High risk for electrolytes imbalance Anemia in ESRD Tolerating dialysis well. Access: no issues. Complications identified during his dialysis treatment: None. Recommendations: UF: minimal as tolerated. NALLELY IV as ordered. Next dialysis treatment is 01/08/20 per the submitted pre-sandoval orders. Eros Rothman MD [facility], Eros Simon MD - 1:41 PM PSTAssociated Order(s): HEMODIALYSISFormatting of this note might be differ ent from the original. Hospital Problem List: Principal Problem: CKD (chronic kidney disease) stage 5, GFR less than 15 ml/min Active Problems: Type 2 diabetes mellitus with diabetic nephropathy, with long-term current use of insulin Anemia of chronic kidney failure, stage 5 Essential hypertension ESRD (end stage renal disease) The patient is seen & examined again & separately from the morning visit, during dialysis t his afternoon. he says that he feels 'tired' now. he denies any dizziness, cp, sob, abd leah n, n/v. The following portions of the patient's history were reviewed and updated as appropriate: l aboratory data, allergies, current medications, and problem list. Current Meds: amLODIPine 5 mg Oral Daily atorvaSTATin 20 mg Oral Nightly calcium acetate 667 mg Oral TID WC ferric gluconate 125 mg Intravenous Daily heparin 5,000 Units Subcutaneous 2 times per day influenza IM vaccine 0.5 mL Intramuscular One Time Vaccine insulin glargine 16 Units Subcutaneous Daily insulin lispro 0-6 Units Subcutaneous 4x Daily WC and HS insulin lispro 5 Units Subcutaneous TID WC metoprolol succinate 50 mg Oral Daily sodium bicarbonate 650 mg Oral TID dextrose 10% sodium chloride 0.9% 50 mL/hr at 01/05/20 1500 P.E. BP 175/80 | Pulse 86 | Temp 36.7 C (98.1 F) (Oral) | Resp 18 | Ht 1.829 m (6') | W t 92.5 kg (203 lb 14.8 oz) | SpO2 99% | BMI 27.66 kg/m General appearance: Pleasant, not in acute distress. But tired. Lungs: Good A/E to auscultation bilaterally. There are no wheezes. Heart: Regular rate and rhythm without any rub, gallop. No murmur. Abdominal exam: Soft and nontender with normal bowel sounds. Extremities: Warm to touch with trace right leg edema. There is no cyanosis. Neurological: Awake, alert, and oriented to time, place, and person. Normal gross motor po wer. There is no asterixis. Access: right tunneled IJ with good flow. Recent Labs 01/05/20 1537 01/05/20 1410 01/05/20 0825 01/05/20 0518 01/05/20 0023 01/04/202058 BUN -- 104* -- 109* 106* 106* CREA -- 11.37* -- 11.47* 11.48* 11.34* EGFR -- 5* -- 5* 5* 5* NA -- 138 -- 137 136 136 K -- 3.7 -- 3.7 3.8 3.9 CL -- 104 -- 102 101 100 CO2 -- 21* -- 22* 21* 21* CALCIUM -- 7.7* -- 7.7* 7.9* 8.0* MG -- -- -- 1.9 -- -- ALBUMIN -- -- -- 3.3* -- 3.7 HGB 7.8* -- -- 6.7* -- 7.7* HCT 23* -- -- 20.5* -- 23.2* IRON -- -- 30* -- -- -- I/O last 3 completed shifts: In: 150 [P.O.:150] Out: 300 [Urine:300] I/O this shift: In: 349 [Blood:349] Out: 170 [Urine:150] Assessment: Mr. Henley is a 49 y.o. male patient with severe acute uremia (severe hyperphosphatemia, sever e anemia, nausea), including uremic encephalopathy (sleepiness; slow reaction; generalized w eakness).requiring acute dialysis. He now is likely in ESRD. High risk for electrolytes imbalance Anemia in ESRD Tolerating dialysis well. Access: no issues. Complications identified during his dialysis treatment: None. Recommendations: UF: minimal as tolerated. STAT NALLELY IV as ordered. Prot suppl stressed Next dialysis treatment is per the submitted pre-sandoval orders. Eros Rothman MD documented in this enco unter Consult Notes Eros Rothman MD - 01/05/2020 7:12 AM PSTAssociated Order(s): PROVIDER TO PROVIDER CONSUL T Hospital Problem List: Principal Problem: CKD (chronic kidney disease) stage 5, GFR less than 15 ml/min Active Problems: Type 2 diabetes mellitus with diabetic nephropathy, with long-term current use of insulin Anemia of chronic kidney failure, stage 5 Essential hypertension I was asked by the ED team to see Mr. Henley in consult on an urgent basis today. As the admit ting/consulting team is familiar with his case, I will not state his past history in detail. Briefly, he is a 49 y.o. male patient with history as delineated in the Past Medical & Surg ical History sections. I was called in to evaluate him for opinion on urgent dialysis need. He was admitted with Acute renal failure, unspecified acute renal failure type (HCC) [N17.9 ] He presented with Abnormal Lab (GFR [address] Perdomo) " Very weak progressively for 2 weeks. Sleepy. "Slowing down" he reports. No seizure activity reported. Appetite not affected. Occasional nausea & vomiting. He has had major hurdles & delays to get procedures done in the outpatient setting. Labs in the outpatient setting showing severe uremia. History & ROS obtained from : patient, primary team, chart review. The patient has history of CKD V. He says that he feels 'poor' today. No history of blurred vision tinnitus, headac he, fever, chills, or cough. No nausea, vomiting, abdominal pain, diarrhea, melena, or catalina tochezia. No chest pain, palpitation, dizziness, loss of consciousness, orthopnea, paroxysm al nocturnal dyspnea, or leg edema. No dysuria, incontinence, or symptoms of UTI. The following portions of the patient's history were reviewed and updated as appropriate: a llergies, current medications, past medical history, past social history, past surgical hist ory, family history and problem list. I also reviewed with his preadmission records; these w ere very informative. ROS: As in History of Present Illness above & Assessment below. All the twelve systems were reviewed and were otherwise negative. Past Medical History: Diagnosis Date CKD (chronic kidney disease) stage 4, GFR 15-29 ml/min (HCC) Convulsive disorder (HCC) DM (diabetes mellitus), type 1, uncontrolled (HCC) HTN (hypertension) Proteinuria Past Surgical History: Procedure Laterality Date APPENDECTOMY OTHER SURGICAL HISTORY Left 2018 CATARACT EXTRACTION Social History Socioeconomic History Marital status: Single Spouse name: Not on file Number of children: Not on file Years of education: Not on file Highest education level: Not on file Occupational History Not on file Social Needs Financial resource strain: Not on file Food insecurity: Worry: Not on file Inability: Not on file Transportation needs: Medical: Not on file Non-medical: Not on file Tobacco Use Smoking status: Former Smoker Types: Cigarettes Smokeless tobacco: Never Used Tobacco comment: quit 1999 Substance and Sexual Activity Alcohol use: Not Currently Comment: none for the last 7 years Drug use: Never Comment: no Sexual activity: Not on file Lifestyle Physical activity: Days per week: Not on file Minutes per session: Not on file Stress: Not on file Relationships Social connections: Talks on phone: Not on file Gets together: Not on file Attends anabaptist service: Not on file Active member of club or organization: Not on file Attends meetings of clubs or organizations: Not on file Relationship status: Not on file Intimate partner violence: Fear of current or ex partner: Not on file Emotionally abused: Not on file Physically abused: Not on file Forced sexual activity: Not on file Other Topics Concern Not on file Social History Narrative Not on file Allergies No active allergies Intolerance No active intolerances/contraindications Current Meds: amLODIPine 5 mg Oral Daily atorvaSTATin 20 mg Oral Nightly calcium acetate 667 mg Oral TID WC heparin 5,000 Units Subcutaneous 2 times per day influenza IM vaccine 0.5 mL Intramuscular One Time Vaccine insulin glargine 16 Units Subcutaneous Daily insulin lispro 0-6 Units Subcutaneous 4x Daily WC and HS insulin lispro 5 Units Subcutaneous TID WC metoprolol succinate 50 mg Oral Daily sodium bicarbonate 650 mg Oral TID dextrose 10% P.E. BP (!) 152/91 | Pulse 88 | Temp 36.3 C (97.3 F) (Oral) | Resp 17 | Ht 1.829 m (6') | Wt 89.5 kg (197 lb 6.4 oz) | SpO2 97% | BMI 26.77 kg/m General appearance: Pleasant, not in acute distress. Neck: Supple without tracheal deviation or jugular venous distension. Head and ENT: Head is atraumatic. The oropharynx is without erythema or thrush. Eyes: Anicteric. The extraocular muscle movements are normal. Lungs: Clear to auscultation bilaterally. There are no wheezes. Heart: Regular rate and rhythm without any rub, gallop. No murmur. Abdominal exam: Soft and nontender with normal bowel sounds. Musculoskeletal: No costovertebral angle tenderness bilaterally. Extremities: Warm to touch with trace right leg edema. There is no cyanosis. Skin: There are no rashes, petechiae, or ecchymosis. Neurological: Awake, alert, and oriented to time, place, and person. Normal gross motor po wer. There is no asterixis. But sleepy & very slow in responding & moving. Psychiatric: The patient s behavior is normal. Judgment and thought content are normal. I/O last 3 completed shifts: In: 150 [P.O.:150] Out: 300 [Urine:300] No intake/output data recorded. Recent Labs 01/05/20 0518 01/05/20 0023 01/04/202058 BUN 109* 106* 106* CREA 11.47* 11.48* 11.34* EGFR 5* 5* 5* NA 137 136 136 K 3.7 3.8 3.9 CL 102 101 100 CO2 22* 21* 21* CALCIUM 7.7* 7.9* 8.0* ALBUMIN 3.3* -- 3.7 HGB 6.7* -- 7.7* HCT 20.5* -- 23.2* Assessment/Recommendations: Mr. Henley is a 49 y.o. male patient with severe acute uremia (severe hyperphosphatemia, sever e anemia, nausea), including uremic encephalopathy (sleepiness; slow reaction; generalized w eakness). He now is likely in ESRD. -He was admitted with Acute renal failure, unspecified acute renal failure type (HCC) [N17. 9] -He presented with Abnormal Lab (GFR [address] Perdomo) VOLUME: EABV is slightly down No IVF need. With the planned COMPLETION SUPERVISOR, his nausea & PO intake will get better No diuresis There is no acute UF indication Given his tendency for anasarca: Encourage adequate intake & close dietitian F/U. Encourage ambulation safely. Encourage the adequate use of an incentive spirometer. RENAL FUNCTION: Severely low GFR There is an acute COMPLETION SUPERVISOR indication No IVF Strict I/O & daily weights. Urine studies as ordered No need for a bladder scan or a renal U/S Dose all of his meds to his current eGFR. Continue to avoid all kinds of nephrotoxins. Target euvolumia with a MAP>75 mmHg as possible. BLOOD PRESSURE: Slightly uncontrolled Vasoactive meds as ordered Monitor BP closely & frequently ELECTROLYTES: Abnormal. There is an acute COMPLETION SUPERVISOR indication Sodium: ok Potassium: ok Calcium: corca is mildly low Magnesium: ok Phosphorus: severely elevated Acid/Base: mild met acidosis Reinforce lytes protocol ALBUMIN: hypoalbuminemia Prot suppl stressed ANEMIA: severe Associated with ESRD Send Ferritin, iron panel Ok to give 1 unit of blood (pre-op) IV NALLELY is planned with HD later today URINALYSIS: No UTI No hematuria OTHER: I spoke with the Vasc Surg team: will get an AVF later today Keep NPO Will also need a tunneled CVC. NB: he did not qualify for PD because of his living situation I discussed today with Mr. Henley the meaning of his severely low GFR and the interaction of chilango burdick with his diabetes & hemodynamics. I discussed with the primary team the case at the time of this encounter. I spent ample time today in interviewing & examining the patient, reviewing & updating the patient's chart, formulating a plan, in addition to patient education and discussions with chilango mccray primary/consulting team. Thank you Dr Wilson for the opportunity to see this patient in consult urgently today. Pleas timothy do not hesitate to call me at any time with questions or concerns. Eros Rothman MD documented in this enco unter ED Notes Maury Wilson, - 01/04/2020 9:15 PM PSTFormatting of this note might be differen t from the original. [facility] Department of Emergency Medicine 9:15 PM No flowsheet data found. History of Present Illness Patient Identification Cely Henley is a 49 y.o. male. Patient information was obtained from patient History/Exam limitations: none. Patient presented to the Emergency Department by: car History of Presenting Illness The patient is a 49 y.o. male presenting with Chief Complaint Patient presents with Abnormal Lab GFR [address] Bill. Location- generalized Onset- few months ago Duration- worsening Severity/Character- Abnormal labs Worse with- nothing Better with- nothing Radiation- None Denies- urinary symptoms, chest pain, SOB or any other symptoms at this time Admits- leg pain Context-Patient was sent from Dr. Rothman's office earlier today due to an abnormal lab. He s tates he has had kidney issues for the past few months and has a maternal hx of kidney relat ed issues. PCP: Yrn Buckley MD Specialists: Past Medical History: Diagnosis Date CKD (chronic kidney disease) stage 4, GFR 15-29 ml/min (HCC) Convulsive disorder (HCC) DM (diabetes mellitus), type 1, uncontrolled (HCC) HTN (hypertension) Proteinuria Past Surgical History: Procedure Laterality Date APPENDECTOMY OTHER SURGICAL HISTORY Left 2018 CATARACT EXTRACTION Prior to Admission medications Medication Sig Start Date End Date Taking? Authorizing Provider amLODIPine (NORVASC) 10 MG tablet 5 mg. 07/21/19 Historical Provider, amLODIPine (NORVASC) 5 mg tablet 12/02/19 Historical Provider, atorvaSTATin (LIPITOR) 20 mg tablet Take 20 mg by mouth nightly. 05/18/19 Provider Unknown Conversion Transaction calcium acetate (CALCIUM ACETATE) 667 mg capsule Take 1 capsule by mouth 3 times daily (wit h meals). 12/18/19 Eros Rothman MD hydroCHLOROthiazide 25 mg tablet 12/15/19 Yes Historical Provider, insulin - MIX insulin NPH-insulin regular 70/30 (HUMULIN 70/30) 100 units/mL injection Inje ct into the skin 2 (two) times daily before meals. 05/18/19 Yes Provider Unknown Conversion Transaction metoprolol succinate (TOPROL-XL) 50 mg 24 hr tablet Take 50 mg by mouth daily. 05/18/19 Pr ovider Unknown Conversion Transaction sodium bicarbonate 650 mg tablet Take 1 tablet by mouth 3 times daily. 12/18/19 Yes Eros Rothman MD No Known Allergies Social History Socioeconomic History Marital status: Single Spouse name: Not on file Number of children: Not on file Years of education: Not on file Highest education level: Not on file Occupational History Not on file Social Needs Financial resource strain: Not on file Food insecurity: Worry: Not on file Inability: Not on file Transportation needs: Medical: Not on file Non-medical: Not on file Tobacco Use Smoking status: Former Smoker Types: Cigarettes Smokeless tobacco: Never Used Tobacco comment: quit 1999 Substance and Sexual Activity Alcohol use: Not Currently Comment: none for the last 7 years Drug use: Never Comment: no Sexual activity: Not on file Lifestyle Physical activity: Days per week: Not on file Minutes per session: Not on file Stress: Not on file Relationships Social connections: Talks on phone: Not on file Gets together: Not on file Attends anabaptist service: Not on file Active member of club or organization: Not on file Attends meetings of clubs or organizations: Not on file Relationship status: Not on file Intimate partner violence: Fear of current or ex partner: Not on file Emotionally abused: Not on file Physically abused: Not on file Forced sexual activity: Not on file Other Topics Concern Not on file Social History Narrative Not on file Family History Problem Relation Age of Onset Diabetes Mother Other (see comment) Mother Renal Disease Prostate cancer Father Asthma Sister Diabetes Sister Arthritis Sister Thyroid disease Sister I have personally reviewed the social history, pertinent history has been addressed. Review of Systems Constitutional: Negative for fever, chills Eyes: Negative for vision changes Nose: Negative for congestion, nosebleeds Throat: Negative for sore throat CV/Resp: Negative for chest pain, [id number], cough GI: Negative for abdominal pain, nausea, vomiting, or diarrhea : Negative for urinary problems Musculoskeletal: Negative for back pain, joint pain Positive for leg pain Skin: Negative for rash Neuro/Psych: Negative for headache Endo/heme/Lymph: Negative for swollen lymph nodes, easy bruising Physical Exam Temp: 36.7 C (98.1 F) Pulse: 89 Resp: 16 BP: 164/88 SpO2: 99 % Vital signs interpretation: slightly hypertensive, otherwise normal Pulse Oximetry interpretation: Normal General: Alert, in no apparent distress Eyes: Normal inspection, pupils equal and round, non-icteric ENT: Ears normal Nose normal Moist mucous membranes Oropharynx clear Neck: Normal inspection Supple Cardiovasc: Rate and rhythm normal No murmurs Respiratory: Breath sounds normal bilaterally No rales, wheezing or rhonchi Abdomen: Soft, non-tender, non-distended No guarding or rebound No peritoneal sign Genitourinary: Deferred Rectal exam: Deferred Back: Normal inspection Extremities: No swelling or redness Skin: Color normal Warm and dry No rash Neuro: Alert, no AMS No gross motor/sensory deficits Moving all extremities Medical Decision Making and Emergency Department Course ED Department Course 49 y.o. male presents to the ED with a chief complaints of abnormal labs. I am most harish rned for possible hyperkalemia, renal failure vs other. I will order labs, EKG, treat sympto matically and reevaluate the patient. Review of vitals Temp: 36.9 C (98.4 F) Pulse: 89 Resp: 20 BP: 141/81 SpO2: 94 % 10:30 PM lab results BUN 106, creatinine 115, GFR 5, RBC 2.7, hemoglobin 7.7, hematocrit 23. All other labs appear unremarkable 11:03 PM I spoke with Dr. Mercado, hospitalist regarding the patient's case. He accepts the patient for admission at this time. 11:28 PM I spoke with Dr. Rothman, he wants the patient admitted to medicine and will see the patient tomorrow in consultation. Medications amLODIPine (NORVASC) tablet 5 mg ( Oral MAR Unhold 01/05/201647) atorvaSTATin (LIPITOR) tablet 20 mg (20 mg Oral Given 01/05/202131) calcium acetate (PHOSLO) capsule 667 mg (667 mg Oral Given 01/05/201814) metoprolol succinate (TOPROL-XL) ER tablet 50 mg ( Oral MAR Unhold 01/05/201647) sodium bicarbonate tablet 650 mg (650 mg Oral Given 01/05/202131) heparin 5,000 units/mL injection 5,000 Units (5,000 Units Subcutaneous Given 01/05/202131) acetaminophen (TYLENOL) tablet 650 mg ( Oral MAR Unhold 01/05/201647) melatonin tablet 3 mg ( Oral MAR Unhold 01/05/201647) morphine injection 2-6 mg ( Intravenous MAR Unhold 01/05/201647) ondansetron (ZOFRAN) injection 4 mg ( Intravenous MAR Unhold 01/05/201647) dextrose 50% injection 12.5-25 g ( Intravenous MAR Unhold 01/05/201647) And dextrose 10% (D10W) infusion ( Intravenous MAR Unhold 01/05/201647) insulin lispro (humaLOG) injection (vial) 0-6 Units (0 Units Subcutaneous Not Given 01/05/202133) hydrALAZINE (APRESOLINE) injection 10 mg ( Intravenous MAR Unhold 01/05/201647) influenza quadrivalent (FLUZONE, FLUARIX, AFLURIA QUADRIVALENT) vaccine injection (syringe) 0.5 mL (has no administration in time range) insulin glargine (LANTUS SOLOSTAR) injection (pen) 16 Units ( Subcutaneous MAR Unhold 164) insulin lispro (humaLOG) injection (vial) 5 Units (5 Units Subcutaneous Given 01/05/20 1814) ferric gluconate (FERRLECIT) 125 mg in sodium chloride 0.9% 100 mL IVPB (125 mg Intravenous New Bag 01/05/20 1743) sodium chloride 0.9% (NS) bolus 100 mL ( Intravenous MAR Unhold 01/05/20 164) sodium chloride 0.9% (NS) infusion ( Intravenous Continued by Anesthesia 01/05/20 9446) phenol (CHLORASEPTIC) spray 1-2 spray (has no administration in time range) menthol (HALLS) lozenge 1 lozenge (has no administration in time range) ondansetron (ZOFRAN ODT) disintegrating tablet 4 mg (has no administration in time range) ondansetron (ZOFRAN) injection 4 mg (has no administration in time range) prochlorperazine tablet 10 mg (has no administration in time range) metoclopramide (REGLAN) tablet 10 mg (has no administration in time range) metoclopramide (REGLAN) 5 mg/mL injection 10 mg (has no administration in time range) docusate sodium (COLACE) capsule 100 mg (has no administration in time range) senna (SENOKOT) tablet 8.6 mg (has no administration in time range) fentaNYL (PF) injection 25-100 mcg (has no administration in time range) HYDROcodone-acetaminophen (NORCO) 5-325 mg per tablet 1-2 tablet (has no administration in time range) ceFAZolin in dextrose (ANCEF) IVPB 2 g (2 g Intravenous New Bag 01/05/20935) midazolam (VERSED) 1 mg/mL injection (1 mg Intravenous Given 01/05/20 0935) fentaNYL (PF) injection (50 mcg Intravenous Given 01/05/20935) lidocaine 1% injection (10 mLs Infiltration Given 01/05/20935) heparin 1,000 units/mL injection (3,800 Units Intravenous Given 01/05/20 0940) heparin 1,000 units/mL injection 3,400 Units (3,400 Units Intracatheter Given 01/05/20 1440) epoetin harry-epbx (RETACRIT) 10,000 units/mL injection 10,000 Units (10,000 Units Intraveno us Given 01/05/20 1428) ceFAZolin in dextrose (ANCEF) IVPB 2 g (2 g Intravenous Given 01/05/20 1541) Records Reviewed Old medical records. Nursing notes. No prior [facility] ED visits available for review. Laboratory Evaluation Results Procedure Component Value Ref Range Date/Time Comprehensive Metabolic Panel [[id number]] (Abnormal) Collected: 01/04/202058 Order Status: Completed Specimen: Blood Updated: 01/04/202220 Na 136 135 - 145 mmol/L K 3.9 3.5 - 4.9 mmol/L Cl 100 99 - 109 mmol/L CO2 21 23 - 32 mmol/L Anion Gap 19 5 - 20 mmol/L Glucose 115 65 - 99 mg/dL BUN 106 8 - 25 mg/dL Creatinine 11.34 0.70 - 1.30 mg/dL BUN/Creatinine Ratio 9 Calcium 8.0 8.5 - 10.5 mg/dL Protein, Total 6.9 6.3 - 8.2 g/dL Albumin 3.7 3.6 - 5.0 g/dL Globulin 3.2 1.3 - 4.9 g/dL A/G Ratio 1.2 1.0 - 2.4 BILIRUBIN, TOTAL 0.2 0.1 - 1.5 mg/dL ALK PHOS 113 35 - 115 U/L AST <8 10 - 45 U/L ALT 9 10 - 65 U/L Estimated GFR 5 >60 mL/min/1.73m2 CK Total [[id number]] Collected: 01/04/202058 Order Status: Completed Updated: 01/04/202220 CK TOTAL 126 55 - 400 U/L CBC with Differential [[id number]] (Abnormal) Collected: 01/04/202058 Order Status: Completed Specimen: Blood Updated: 01/04/202116 WBC 9.01 3.80 - 11.00 K/uL RBC 2.71 4.20 - 5.70 M/uL Hemoglobin 7.7 13.2 - 17.0 g/dL Hematocrit 23.2 39.0 - 50.0 % MCV 85.6 80.0 - 100.0 fl MCH 28.4 27.0 - 34.0 pg MCHC 33.2 32.0 - 35.5 g/dL RDW-SD 42.5 37 - 53 fl Platelet Count 239 150 - 400 K/uL MPV 11.5 fl Diff Type AUTOMATED % nRBC 0.0 0 /100WBC % Neutrophils 69.70 % IMMATURE GRANULOCYTE 0.60 % % Lymphocytes 17.50 % Monocyte % 7.90 % Eosinophils % 3.60 % Basophils % 0.70 % Neutrophils, Absolute 6.29 1.90 - 7.40 K/uL IMMATURE GRANS AB 0.05 0.00 - 0.07 K/uL Absolute Lymphocytes 1.58 1.00 - 3.90 K/uL Absolute Monocytes 0.71 0.00 - 0.80 K/uL Eosinophils, Absolute 0.32 0.00 - 0.50 K/uL Basophils, Absolute 0.06 0.00 - 0.10 K/uL I personally reviewed the lab results and they have been posted to the chart. Pertinent po sitive and negative findings have been addressed appropriately and I have discussed any abno rmal labs with the patient. Radiology and EKG Evaluation ====EKG Interpretation==== Time: 2112 Rate: 82 Rhythm: Sinus [place]: normal Intervals: normal ST: normal Other: none No old for comparison Overall: Normal EKG Interpreted by Maury Wilson D.O. Rhythm strip analysis: NSR Imaging Results None 1. Acute renal failure, unspecified acute renal failure type (HCC) 2. ESRD (end stage renal disease) ([facility]) 3. ESRD (end stage renal disease) ([facility]) 4. CKD (chronic kidney disease) stage 5, GFR less than 15 ml/min ([facility]) 5. Uremia, acute 6. At high risk for electrolyte imbalance 7. Essential hypertension 8. Hyperphosphatemia 9. Metabolic acidosis 10. Type 2 diabetes mellitus with diabetic nephropathy, with long-term current use of insul in (HCC) 11. Anemia in ESRD (end-stage renal disease) (HCC) 12. Hypoalbuminemia Disposition: ED Disposition ED Disposition Condition Comment Admit Follow-up Information Elpidio Gunter MD In 2 weeks. Specialty: Vascular Surgery Contact information: [address] [place] [address] [place] [id number] Discharge Medications: Current Discharge Medication List Procedures Attending Provider Note: I, Maury Wilson DO personally performed the services descr ibed in this documentation, as scribed by Cortez Givens in my presence, and it is both accur ate and complete. Chart Reviewed and Completed. Scribe: I Charo Ramirez, scribing for and in the presence of Maury Wilson DO . Completed by: Charo Ramirez 01/06/2020 12:14 AM Maury Wilson DO 01/06/20 0014 documented in th is encounter Miscellaneous Notes Plan of Care - Ashley Delgado RN - 01/10/2020 12:35 PM PSTCare Management Final Dischar ge Plan Readmission Risk: Medium Discharge Plan Planned Disposition: Home or Self Care Planned Destination: home PCP: Yrn Buckley MD Patient/Family Notified: Yes Transportation will be provided by: Private auto Transportation Date/Time: 01/10/20 Community Support Services Current Outpt/Agency/Support Groups: hemodialysis Community Agency Name: [facility] Equipment Home Equipment at Discharge: 4WW Equipment Used at Home: none Pharmacy Pharmacy/Medication needs: ([facility]) Notes: Dialysis coordinator Danette notified CM this morning that pt has been set up with a chair time at [facility] T,, Sat at 1:30 pm. Pt has been notified. 4WW delivered by [facility]. PT is recommending home health for pt, but he notified CM that he would pre [facility]all out patient physical therapy instead. CM notified Hospitalist of pt's preference and out patient PT orders placed. No further CM discharge needs expressed. Electronically signed: Ashley Delgado RN 01/10/2020 12:43 PM lan of Care - Dulce Maria Juarez RN - 01/10/2020 9:51 AM PST Problem: Fall Injury Risk Goal: Absence of Fall and Fall-Related Injury Outcome: Ongoing, progressing Problem: Adult Inpatient Plan of Care Goal: Plan of Care Review Outcome: Ongoing, progressing Problem: Infection Goal: Infection Symptom Resolution Outcome: Ongoing, progressing Note: WBC WDL. Pt remains on contact enteric isolation. No signs of infection noted. Dulce Maria Barakat RN lan of Care - Yeimy Strong, PT - 01/09/2020 3:23 PM PSTFormatting of this note might be different from th e original. Physical Therapy Initial Evaluation Note Recommended discharge disposition: home with assist Post discharge physical therapy recommendation: home health Equipment Recommendations: 4 wheeled walker (4WW) Barriers to community-based discharge None Planned Interventions: gait training, balance training, strengthening, stair training Recommended Frequency: 3 times/wk for 7 days PT reassessment due 01/16/20 Next visit information: 3/3, deconditioning, balance/progress amb with 4WW Summary: Pt admitted for CKD with h/o DM type 1 presents with impaired balance. Pt uses bi lat AFO during amb and benefits from use of 4WW to decrease loss of balance. Due to pt's zenaida betic neuropathy, he has a tendency of losing balance backwards with poor foot placement con trol. Pt requires Neyda when navigating step, which he reports is near baseline. Pt's BP init ally was 149/72 and HR 73, post-activity, pt's BP was 106/59 and HR 73. Pt did c/o of mild d izziness when BP being taken, reports it was improving. Pt scored an 18/28 on the Tinetti PO MA, indicating high fall risk. Pt also appears to have L shoulder subluxation, reports it forman s been that way for a while and that he has gotten and xray and was seen by an MD however forman s not heard from the MD. Encouraged pt to follow up with MD. As pt is never home alone and r eceives assist from father and sister at baseline, he appears safe to return home with use o f 4WW and continued assist from family. He would benefit from home health PT. Living Environment Lives With: father, sibling(s) Living Arrangements: house Number of Stairs to Enter Home: 3(L rail) Number of Stairs Within Home: 0 Living Environment Comment: Bathroom: tub, has shower chair but does not use, no grab bars. Toilet: standard height Functional Level Prior Transferring: independent Ambulation: independent Toileting: independent Bathing: independent Dressing: independent Eating: independent Equipment Currently Used at Home: none Prior Functional Level Comment: Pt indep with mobility, has bilat AFOs on at all times. Fat her and sister assist taking steps into the home, cooking, cleaning. Pt uses dial a ride for transportation. Reports 2 falls in the past year, did not have AFOs on when going to the [facility] at night. Precautions Precaution Comment: bilat AFOs Precautions/Limitations: falls Impairments Found (describe specific impairments): functional endurance/activity tolerance, gait, locomotion, and balance, sensory integration/regulation, muscle performance, neuromot or Bed Mobility Additional Documentation: supine to/from sit Assistive Device: none Supine to Sit, Level of Kimberly: independent Sit to Supine, Level of Kimberly: independent Transfers Transfers Comments: Transfer training using 4WW Additional Documentation: sit to/from stand Sit-Stand, Level of Kimberly: modified independent Stand-Sit, Level of Kimberly: modified independent Frv-Mlifu-Mgr, Assistive Device: 4 wheeled walker (4WW), none Safety Issues: loses balance backward Impairments: strength decreased, impaired balance, sensation decreased Gait Gait Comments: Gait training with 4WW Level of Kimberly: stand by assist Assistive Device: 4 wheeled walker (4WW) Distance (feet): 40x2 Additional Documentation: safety, impairments, stairs (group) Impairments: sensation decreased, strength decreased, impaired balance Stairs Number of Stairs: 1 Handrail Location: left side (ascending)(raised bed rail) Level of Kimberly: minimal assist (75% patient effort) Assistive Device: 1 rail, gait belt(hand held assist) Impairments: strength decreased, impaired balance, sensation decreased Sensory Assessment Sensation Comments: Decreased LT mid calf and belo and in fingers d/t diabetic neuropathy Range of Motion L UE ROM: Limited shoulder flexion, otherwise WFL R UE ROM: WFL L LE ROM: WFL R LE ROM: WFL Strength L UE Strength: WFL except L shoulder 2+/5 R UE Strength: WFL L LE Strength: WFL except DF 2/5 R LE Strength: WFL except DF 2/5 Balance Sitting Balance: Static: good balance Sitting Balance: Dynamic: good balance Standing Balance: Static: fair balance Standing Balance: Dynamic: poor balance Additional Documentation: Tinetti (group) Goals Reflects last filed data and may be from multiple contributors. All Transfers Goal Most Recent Value LTG Kimberly Level modified independent at 01/09/2020 1523 LTG Assistive Device 4 wheeled walker (4WW) at 01/09/2020 1523 Gait Goal Most Recent Value LTG Kimberly Level modified independent at 01/09/2020 1523 LTG Assistive Device 4 wheeled walker (4WW) at 01/09/2020 1523 LTG Distance (feet) 50 at 01/09/2020 1523 Stair Goal Most Recent Value LTG Kimberly Level contact guard assist at 01/09/2020 1523 LTG Assistive Device 1 rail at 01/09/2020 1523 LTG Number of Stairs 3 at 01/09/2020 1523 lan of Care - Dulce Maria Sarkar RN - 01/09/2020 7:33 AM PSTDenies pain. VSS. Afebrile. BG 67 this afternoon- Juice given and BG rechecked to be 89. No other acute changes. Problem: Fall Injury Risk Goal: Absence of Fall and Fall-Related Injury Outcome: Ongoing, progressing Problem: Oral Intake Inadequate (Chronic Kidney Disease) Goal: Optimal Oral Intake Outcome: Ongoing, progressing Problem: Infection Goal: Infection Symptom Resolution Outcome: Ongoing, progressing Problem: Skin Injury Risk Increased Goal: Skin Health and Integrity Outcome: Ongoing, progressing Note: Skin remains intact. Frequent weight shifting promoted. Dulce Maria Barakat RN sharmila of Lynnette Cabrales RN - 01/09/2020 6:02 AM PSTVSS. Patient slept through the night. No acute changes from initial shift assessment. Chart check review complete. Will pass cares on to day LUISA. Lynnette Khanna RN lan of Care - Lynnette Leigh RN - 01/08/2020 9:47 PM PST Problem: Fall Injury Risk Goal: Absence of Fall and Fall-Related Injury Outcome: Ongoing, progressing Note: Patient remains free from falls this shift. Fall prevention measures in place. Visualized hourly. Problem: Adult Inpatient Plan of Care Goal: Plan of Care Review Outcome: Ongoing, progressing Problem: Infection Goal: Infection Symptom Resolution Outcome: Ongoing, progressing lan of Care - Ashley Carmona RN - 01/08/2020 11:38 AM PSTCare Management Follow-Up Readmission Risk: Medium Current Discharge Plan Anticipated Discharge Disposition: home with outpatient services Expected DC Date: 01/10/20 Barriers to Discharge: Dialysis chair time Steps Taken Toward Discharge: Per Hospitalist report, [place] [facility] will be ope abbey up more chair times and Dr. Rothman plans to speak with the center about getting pt estab lished there. Next Steps: CM to follow-up with dialysis coordinator Danette. Community Support Services Current Outpt/Agency/Support Groups: none Discharge Transportation Transportation Needs: family or friend will provide Electronically signed: Ashley Delgado RN 01/08/2020 11:38 AM lan of Care - Dulce Maria Juarez RN - 01/08/2020 10:59 AM PSTVSS. Afebrile. Tolerated dialysis well. Chart check complete. Problem: Fall Injury Risk Goal: Absence of Fall and Fall-Related Injury Outcome: Ongoing, progressing Problem: Infection Goal: Infection Symptom Resolution Outcome: Ongoing, progressing Note: WBC WDL. Pt remains on contact enteric isolation. Dulce Maria Barakat RN Plan of Care - Chantel Irizarry RN - 01/08/2020 5:06 AM PST Problem: Fall Injury Risk Goal: Absence of Fall and Fall-Related Injury Outcome: Ongoing, progressing Bed in low locked position, call light within reach, hourly rounding for pt needs. VSS. Pt appears to be resting comfortably. Denies pain or discomfort. No acute changes si nce previous shift. Bed in low locked position, call light within reach. End of shift review completed by this RN. Chantel Irizarry RN lan of Tiffanie Wang Ra, RN - 01/07/2020 3:53 PM PSTAlert and oriented x4, vital signs remain stable, denies pain. Pt reports nausea and emesis x1, medicated per MAR. Pt has had frequent bowel movements zenaida rrhea, imodium given x1. Blood glucose 48 at 1600 check, dextrose 12.5g given x1, recheck BG shows 132. Shift review complete. Problem: Fall Injury Risk Goal: Absence of Fall and Fall-Related Injury Outcome: Ongoing, progressing Patient unsteady on feet, has been calling appropriately for help in and out of bed, bed a larm in place Problem: Oral Intake Inadequate (Chronic Kidney Disease) Goal: Optimal Oral Intake Outcome: Ongoing, progressing Patient has been having two meals a day with some nausea after meal, medicated with zofran . Good relief noted. lan of Chantel Rodriguez RN - 01/07/2020 4:28 AM PSTVSS. C/o Nausea and vomiting, Zofran given. Pt had multiple episodes of Diarrhea, C.diff + for antigen, notified, imod ium ordered. No acute changes since previous shift. Bed in low locked position, call light within reach. End of shift review completed by this RN. Chantel Irizarry RN Problem: Fall Injury Risk Goal: Absence of Fall and Fall-Related Injury Outcome: Ongoing, progressing Bed in low locked position, call light within reach, hourly rounding for pt needs. lan of Chantel Rodriguez RN - 01/06/2020 8:15 PM PSTDrRyan Conn notified d/t pt having diarrhea, C.Diff ordered , pt isolated until results are back. CHANTEL IRIZARRY RN lan of Tiffanie Vázquez RN - 01/06/2020 10:58 AM PSTPatient had 1/2L fluid removed d uring dialysis treatment today. Will have repeat dialysis treatment tomorrow. Vital signs st able, denies pain and shortness of breath. Following dialysis pt had one episode of nausea, medicated per MAR with symptom resolution. Shift review complete. Problem: Fluid Volume Excess (Chronic Kidney Disease) Goal: Fluid Balance Outcome: Ongoing, progressing Patient on hemodialysis treatment this AM, plan for 2hour treatment and 1/2 L removed.Elec tronically signed by Tiffanie Rodriguez RN at 01/06/2020 5:26 PM PSTPlan of Care - Chantel Irizarry RN - 01/06/2020 4:13 AM PST Problem: Fall Injury Risk Goal: Absence of Fall and Fall-Related Injury Outcome: Ongoing, progressing VSS. Pt appears to be resting comfortably. Pt c/o nausea this morning, PRN zofran given r tayloref noted. AVF +T/B. No acute changes since previous shift. Bed in low locked position, ca ll light within reach, hourly rounding for pt needs. End of shift review completed by shweta Chau. Chantel Irizarry RN p Note - Elpidio Gunter MD - 01/05/2020 4:16 PM PST [facility] Service: Vascular Surgery Operative Note Pre-operative Diagnosis: ESRD and need for shelter dialysis access Post-operative Diagnosis: same Procedure(s): Left brachiocephalic fistula creation Surgeon: Elpidio Gunter MD [employer] Monitor(s): KENAN Bunch (PA was required to help with positioning, prepping and sharif ping, exposure of vessels, vascular anastomosis, and closure). Anesthesia: Monitor Anesthesia care and Local anesthesia Estimated Blood Loss: less than 50 ml Other: IV Fluids: 100 ml Indications: See pre-operative history and physical Findings: Left arm cephalic vein of good size. 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 The anastomosis was performed to the brachial artery which became the radial artery. After jacky stomosis, strong thrill in fistula. Strong radial signals at end of case. Complications: None apparent Description of Procedure: Patient was properly identified and brought to the operating darlyn m where patient was placed supine on the operating table and patient underwent Monitor Anest hesia care and Local anesthesia. Patient's left arm was then prepped and draped in the usual sterile fashion. Local anesthetic was then given to the antecubital fossa and a transverse incision was then made. First the cephalic vein was identified and branches of the cephalic vein were ligated with 3-0 silk sutures and divided. Next, the brachial artery was also iden tified and dissected. Patient was then given 3000 units of IV heparin. After 3 minutes an en d-to-side anastomosis was created with the cephalic vein onto the brachial artery using 6-0 Prolene sutures in a running fashion. After completion of the anastomosis, there was a stron g thrill in the fistula. The patient had a strong signals of the radial artery at the end of the case. The wound was then irrigated and hemostasis was then assured. The deep dermal ti ssue was then closed with 3-0 Vicryl and the skin was then closed with 4-0 Monocryl in a sub cuticular fashion. Mastisol and Steri-Strip closures were then placed and a sterile dressing was then applied. At the end of the case, sponge, needle, and instrument counts were correc t x2. There were no apparent complications. Condition: stable Elpidio Gunter MD 01/05/2020 4:16 PM lan of [facility] RN - 01/05/2020 1:01 PM PSTCare Management Initial Assessment Readmission Risk: Medium Status Prior to Admission or Illness Arrival From: admitted as an inpatient Lives With: father, sibling(s) Living Arrangements: house Caregiver For: no one Functional Status: pt is independent with ADL's and uses no DME Home Accessibility: stairs to enter home Transportation Available: family or friend will provide Able to return to prior living: yes Care Management Concerns Readmission Within Last 30 Days: no previous admission in last 30 days PCP: Yrn Buckley MD Contact Information Family Contact Information: Name: Rosaura Jules(sister) DC Needs Assessment Current Outpt/Agency/Support Groups: none Anticipated Changes Related to Illness: none Concerns to be Addressed: no discharge needs identified Services Anticipated at Discharge: outpatient hemodialysis Equipment Used at Home: none Pharmacy/Medication Needs: ([facility]) Transportation Needs: family or friend will provide Initial Plan Anticipated Discharge Disposition: home with outpatient services Expected DC Date: TBD Steps Taken Toward Discharge: Initial admission assessment. Per MD pt will be requiring HD on discharge. CM informed Danette Dialysis Coordinator regarding pt's dialysis chair time . Danette will inform CM when a chair time has been scheduled Next Steps: CM will continue to follow pt for discharge planning Electronically signed: Jess Lofton RN 01/05/2020 1:01 PM lan of C are - Tiffanie Reardon RN - 01/05/2020 11:00 AM PSTPt alert and oriented x4. Pt receive d one unit PRBC and iron infusion. Had dialysis cath placed and fistula to left arm placed today. Vital signs were stable post procedures. Patient tolerating renal diet. Was on dialysis for 1 hour with no fluid taken off as pt had to go for AV fistula placement . Shift review complete. Problem: Hematologic Alteration (Chronic Kidney Disease) Goal: Absence of Anemia Signs/Symptoms Outcome: Ongoing, progressing Patient hemoglobin/hematocrit 6.7/20.5, administered 1 unit PRBC, continue to monitor H&H with morning labs. TBrief Op Note - Elpidio Gunter MD - 01/05/2020 9:44 AM [facility] Service: Vascular Surgery Brief Op Note Pre-operative Diagnosis: Acute on chronic renal failure Post-operative Diagnosis: same Procedure(s): Ultrasound guided access of right internal jugular vein Placement of 23 cm tunneled dialysis catheter under fluoroscopic guidance Surgeon: Elpidio Gunter MD [employer] L[employer] Monitor(s): None Anesthesia: Moderate sedation and Local anesthesia Estimated Blood Loss: Minimal Other: Contrast: 0 ml of Omnipaque 240 Sedation: 10 minutes Versed: 1 mg Fentanyl: 50 mcg Indications: See pre-operative history and physical Findings: Right IJ accessed under ultrasound guidance. 23 cm catheter placed with tip in right atrium. Good aspiration and flush from all ports. Complications: None apparent Condition: stable See dictated operative report for full details. Elpidio Gunter MD 01/05/2020 9:44 AM edation Documentation - Aditya Carr Technologist - 01/05/2020 9:40 AM PSTCatheter tunneled to chest wall Suturing catheter edation Documentation - Aditya Carr Technologist - 01/05/2020 9:36 AM PST4f m icropuncture used /access to right IJ 75 amplattz wire inserted 23 cm Dialysis Catheter inserted OTW edation D ocumentation - Aditya Carr Technologist - 01/05/2020 9:35 AM PSTsonosite used to gain access lan of Ca re - Lou Gonzalez RN - 01/05/2020 6:28 AM PSTPt AOx4. SBP 140-162. Afebrile. Voiding QS. Last BS 158 about 0643. Plan is for patient to get dialysis catheter placed today. Pat ient has been NPO shortly after midnight.. Renal ultrasound was scheduled at 0600 today and complete. UA collected and results are in.No further needs on this shift are noted. Will pas s all future cares to day shift RN. Chart review complete. Lou Gonzalez RN lan of Care - Perr Lou tabares RN - 01/05/2020 2:51 AM PST Problem: Fall Injury Risk Goal: Absence of Fall and Fall-Related Injury Outcome: Ongoing, progressing Note: Patient bed in lowest position with wheels locked and alarm set and audible, personal items and call light within reach, remind patient to change positions slowly and use call light f or assistance. Problem: Adult Inpatient Plan of Care Goal: Optimal Comfort and Wellbeing Outcome: Ongoing, progressing Note: Offered warm blankets, provided active listening to patient concerns and answered questions when presented. documented in this encounter Plan of Treatment +--------+---------+ + + + | Date | Type | Specialty | Care Team | Description | +--------+---------+ + + + | 09/30/ | Office | Cardiology | Aditya Monzon, | | | 2019 | Visit | | MD [address] | | | | | | [place], | | | | | | [place] [id number] | | | | | | [phone] | | | | | | | | +--------+---------+ + + + + +------+--------+ + + | Name | Type | Priori | Associated Diagnoses | Date/Time | | | | ty | | | + +------+--------+ + + | ED INFORMATION | MARK ANTHONY | Routin | | 01/04/2020 6:46 PM | | EXCHANGE | | e | | PST | + +------+--------+ + + + + +--------+ + + | Name | Type | Priori | Associated Diagnoses | Order Schedule | | | | ty | | | + + +--------+ + + | Referral to Home | Outpatient | Routin | ESRD (end stage | Ordered: 01/10/2020 | | Health | Referral | e | renal disease) ([facility]) | | | | | | 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, with | | | | | | long-term current | | | | | | use of insulin ([facility]) | | | | | | At high risk for | | | | | | falls Visual | | | | | | impairment due to | | | | | | diabetes mellitus | | | | | | ([facility]) 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 ([facility]) | | + + +--------+ + + | Ambulatory referral | Outpatient | Routin | At high risk for | Ordered: 01/10/2020 | | to Physical Therapy | Referral | e | falls Visual | | | | | | impairment due to | | | | | | diabetes mellitus | | | | | | ([facility]) 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 | + +--------+ + + + | POC GLUCOSE (NON | Routin | 01/10/2020 | | Results for this | | ORD) | e | 11:31 AM | | procedure are in the | | | | PST | | results section. | + +--------+ + + + | HEMODIALYSIS | Routin | 01/10/2020 | | Results for this | | | e | 9:53 AM | | procedure are in the | | | | PST | | results section. | + +--------+ + + + | POC GLUCOSE (NON | Routin | 01/10/2020 | | Results for this | | ORD) | e | 7:58 AM | | procedure are in the | | | | PST | | results section. | + +--------+ + + + | CBC WITH | Routin | 01/10/2020 | | Results for this | | DIFFERENTIAL | e | 5:22 AM | | procedure are in the | | | | PST | | results section. | + +--------+ + + + | MAGNESIUM | Routin | 01/10/2020 | | Results for this | | | e | 5:22 AM | | procedure are in the | | | | PST | | results section. | + +--------+ + + + | HEMOGLOBIN A1C | Add-On | 01/10/2020 | | Results for this | | | | 5:22 AM | | procedure are in the | | | | PST | | results section. | + +--------+ + + + | BASIC METABOLIC | Routin | 01/10/2020 | | Results for this | | PANEL | e | 5:22 AM | | procedure are in the | | | | PST | | results section. | + +--------+ + + + | POC GLUCOSE (NON | Routin | 01/09/2020 | | Results for this | | ORD) | e | 8:40 PM | | procedure are in the | | | | PST | | results section. | + +--------+ + + + | POC GLUCOSE (NON | Routin | 01/09/2020 | | Results for this | | ORD) | e | 4:51 PM | | procedure are in the | | | | PST | | results section. | + +--------+ + + + | POC GLUCOSE (NON | Routin | 01/09/2020 | | Results for this | | ORD) | e | 4:27 PM | | procedure are in the | | | | PST | | results section. | + +--------+ + + + | POC GLUCOSE (NON | Routin | 01/09/2020 | | Results for this | | ORD) | e | 11:49 AM | | procedure are in the | | | | PST | | results section. | + +--------+ + + + | POC GLUCOSE (NON | Routin | 01/09/2020 | | Results for this | | ORD) | e | 7:32 AM | | procedure are in the | | | | PST | | results section. | + +--------+ + + + | POC GLUCOSE (NON | Routin | 01/09/2020 | | Results for this | | ORD) | e | 3:53 AM | | procedure are in the | | | | PST | | results section. | + +--------+ + + + | POC GLUCOSE (NON | Routin | 01/08/2020 | | Results for this | | ORD) | e | 8:24 PM | | procedure are in the | | | | PST | | results section. | + +--------+ + + + | POC GLUCOSE (NON | Routin | 01/08/2020 | | Results for this | | ORD) | e | 4:06 PM | | procedure are in the | | | | PST | | results section. | + +--------+ + + + | XR CHEST PA AND | Routin | 01/08/2020 | | Results for this | | LATERAL | e | 2:04 PM | | procedure are in the | | | | PST | | results section. | + +--------+ + + + | POC GLUCOSE (NON | Routin | 01/08/2020 | | Results for this | | ORD) | e | 11:36 AM | | procedure are in the | | | | PST | | results section. | + +--------+ + + + | HEMODIALYSIS | Routin | 01/08/2020 | | Results for this | | | e | 9:39 AM | | procedure are in the | | | | PST | | results section. | + +--------+ + + + | POC GLUCOSE (NON | Routin | 01/08/2020 | | Results for this | | ORD) | e | 8:31 AM | | procedure are in the | | | | PST | | results section. | + +--------+ + + + | CBC NO DIFFERENTIAL | Routin | 01/08/2020 | | Results for this | | | e | 4:35 AM | | procedure are in the | | | | PST | | results section. | + +--------+ + + + | COMPREHENSIVE | Routin | 01/08/2020 | | Results for this | | METABOLIC PANEL | e | 4:35 AM | | procedure are in the | | | | PST | | results section. | + +--------+ + + + | POC GLUCOSE (NON | Routin | 01/07/2020 | | Results for this | | ORD) | e | 8:57 PM | | procedure are in the | | | | PST | | results section. | + +--------+ + + + | POC GLUCOSE (NON | Routin | 01/07/2020 | | Results for this | | ORD) | e | 5:44 PM | | procedure are in the | | | | PST | | results section. | + +--------+ + + + | POC GLUCOSE (NON | Routin | 01/07/2020 | | Results for this | | ORD) | e | 4:53 PM | | procedure are in the | | | | PST | | results section. | + +--------+ + + + | POC GLUCOSE (NON | Routin | 01/07/2020 | | Results for this | | ORD) | e | 4:16 PM | | procedure are in the | | | | PST | | results section. | + +--------+ + + + | POC GLUCOSE (NON | Routin | 01/07/2020 | | Results for this | | ORD) | e | 11:38 AM | | procedure are in the | | | | PST | | results section. | + +--------+ + + + | POC GLUCOSE (NON | Routin | 01/07/2020 | | Results for this | | ORD) | e | 7:38 AM | | procedure are in the | | | | PST | | results section. | + +--------+ + + + | CBC WITH | Routin | 01/07/2020 | | Results for this | | DIFFERENTIAL | e | 3:55 AM | | procedure are in the | | | | PST | | results section. | + +--------+ + + + | RENAL FUNCTION PANEL | Routin | 01/07/2020 | | Results for this | | | e | 3:55 AM | | procedure are in the | | | | PST | | results section. | + +--------+ + + + | CLOSTRIDIUM | Routin | 01/06/2020 | | Results for this | | DIFFICILE A AND B | e | 9:10 PM | | procedure are in the | | EIA | | PST | | results section. | + +--------+ + + + | POC GLUCOSE (NON | Routin | 01/06/2020 | | Results for this | | ORD) | e | 9:04 PM | | procedure are in the | | | | PST | | results section. | + +--------+ + + + | POC GLUCOSE (NON | Routin | 01/06/2020 | | Results for this | | ORD) | e | 4:11 PM | | procedure are in the | | | | PST | | results section. | + +--------+ + + + | POC GLUCOSE (NON | Routin | 01/06/2020 | | Results for this | | ORD) | e | 11:03 AM | | procedure are in the | | | | PST | | results section. | + +--------+ + + + | MAGNESIUM | Routin | 01/06/2020 | | Results for this | | | e | 5:15 AM | | procedure are in the | | | | PST | | results section. | + +--------+ + + + | RENAL FUNCTION PANEL | Routin | 01/06/2020 | | Results for this | | | e | 5:15 AM | | procedure are in the | | | | PST | | results section. | + +--------+ + + + | CBC WITH | Routin | 01/06/2020 | | Results for this | | DIFFERENTIAL | e | 4:52 AM | | procedure are in the | | | | PST | | results section. | + +--------+ + + + | HEPATITIS B CORE AB, | Routin | 01/05/2020 | | Results for this | | TOTAL | e | 10:01 PM | | procedure are in the | | | | PST | | results section. | + +--------+ + + + | HEPATITIS B SURFACE | STAT | 01/05/2020 | | Results for this | | AG | | 9:46 PM | | procedure are in the | | | | PST | | results section. | + +--------+ + + + | HEPATITIS B SURFACE | Routin | 01/05/2020 | | Results for this | | AB, QUANT | e | 9:45 PM | | procedure are in the | | | | PST | | results section. | + +--------+ + + + | POC GLUCOSE (NON | Routin | 01/05/2020 | | Results for this | | ORD) | e | 9:33 PM | | procedure are in the | | | | PST | | results section. | + +--------+ + + + | POC GLUCOSE (NON | Routin | 01/05/2020 | | Results for this | | ORD) | e | 5:03 PM | | procedure are in the | | | | PST | | results section. | + +--------+ + + + | POC ISTAT, CG8, | Routin | 01/05/2020 | | Results for this | | VENOUS | e | 3:37 PM | | procedure are in the | | | | PST | | results section. | + +--------+ + + + | INSERTION AV FISTULA | | 01/05/2020 | ESRD (end stage | | | | | 3:22 PM | renal disease) (HCC) | | | | | PST | | | + +--------+ + + + | POC GLUCOSE (NON | Routin | 01/05/2020 | | Results for this | | ORD) | e | 2:56 PM | | procedure are in the | | | | PST | | results section. | + +--------+ + + + | BASIC METABOLIC | STAT | 01/05/2020 | | Results for this | | PANEL | | 2:10 PM | | procedure are in the | | | | PST | | results section. | + +--------+ + + + | HEMODIALYSIS | Routin | 01/05/2020 | | Results for this | | | e | 1:41 PM | | procedure are in the | | | | PST | | results section. | + +--------+ + + + | POC GLUCOSE (NON | Routin | 01/05/2020 | | Results for this | | ORD) | e | 11:13 AM | | procedure are in the | | | | PST | | results section. | + +--------+ + + + | IR TUNNELLED | Routin | 01/05/2020 | | Results for this | | DIALYSIS CATH | e | 9:54 AM | | procedure are in the | | INSERTION | | PST | | results section. | + +--------+ + + + | PRODUCT: RBC | STAT | 01/05/2020 | | Results for this | | | | 8:25 AM | | procedure are in the | | | | PST | | results section. | + +--------+ + + + | IRON AND IRON | Add-On | 01/05/2020 | | Results for this | | BINDING CAPACITY | | 8:25 AM | | procedure are in the | | | | PST | | results section. | + +--------+ + + + | TYPE AND SCREEN | SARA | 01/05/2020 | | Results for this | | | | 8:25 AM | | procedure are in the | | | | PST | | results section. | + +--------+ + + + | FERRITIN | Add-On | 01/05/2020 | | Results for this | | | | 8:25 AM | | procedure are in the | | | | PST | | results section. | + +--------+ + + + | POC GLUCOSE (NON | Routin | 01/05/2020 | | Results for this | | ORD) | e | 7:32 AM | | procedure are in the | | | | PST | | results section. | + +--------+ + + + | POC GLUCOSE (NON | Routin | 01/05/2020 | | Results for this | | ORD) | e | 6:39 AM | | procedure are in the | | | | PST | | results section. | + +--------+ + + + | US RENAL LIMITED | Routin | 01/05/2020 | | Results for this | | | e | 6:32 AM | | procedure are in the | | | | PST | | results section. | + +--------+ + + + | CBC WITH | Routin | 01/05/2020 | | Results for this | | DIFFERENTIAL | e | 5:18 AM | | procedure are in the | | | | PST | | results section. | + +--------+ + + + | MAGNESIUM | Routin | 01/05/2020 | | Results for this | | | e | 5:18 AM | | procedure are in the | | | | PST | | results section. | + +--------+ + + + | COMPREHENSIVE | Routin | 01/05/2020 | | Results for this | | METABOLIC PANEL | e | 5:18 AM | | procedure are in the | | | | PST | | results section. | + +--------+ + + + | POC GLUCOSE (NON | Routin | 01/05/2020 | | Results for this | | ORD) | e | 3:43 AM | | procedure are in the | | | | PST | | results section. | + +--------+ + + + | PROTEIN/CREATININE | Routin | 01/05/2020 | | Results for this | | RATIO, URINE | e | 1:21 AM | | procedure are in the | | | | PST | | results section. | + +--------+ + + + | SODIUM, URINE, | STAT | 01/05/2020 | | Results for this | | RANDOM | | 1:21 AM | | procedure are in the | | | | PST | | results section. | + +--------+ + + + | PROTEIN, URINE, | Routin | 01/05/2020 | | Results for this | | RANDOM | e | 1:21 AM | | procedure are in the | | | | PST | | results section. | + +--------+ + + + | POTASSIUM, URINE, | STAT | 01/05/2020 | | Results for this | | RANDOM | | 1:21 AM | | procedure are in the | | | | PST | | results section. | + +--------+ + + + | CREATININE, URINE, | Routin | 01/05/2020 | | Results for this | | RANDOM | e | 1:21 AM | | procedure are in the | | | | PST | | results section. | + +--------+ + + + | URINALYSIS WITH | Routin | 01/05/2020 | | Results for this | | MICROSCOPIC IF | e | 1:20 AM | | procedure are in the | | INDICATED | | PST | | results section. | + +--------+ + + + | EOSINOPHIL SMEAR, | Routin | 01/05/2020 | | Results for this | | URINE | e | 1:20 AM | | procedure are in the | | | | PST | | results section. | + +--------+ + + + | BASIC METABOLIC | STAT | 01/05/2020 | | Results for this | | PANEL | | 12:23 AM | | procedure are in the | | | | PST | | results section. | + +--------+ + + + | ECG 12 LEAD | STAT | 01/04/2020 | | Results for this | | | | 9:13 PM | | procedure are in the | | | | PST | | results section. | + +--------+ + + + | CBC WITH | STAT | 01/04/2020 | | Results for this | | DIFFERENTIAL | | 8:59 PM | | procedure are in the | | | | PST | | results section. | + +--------+ + + + | CK TOTAL | Routin | 01/04/2020 | | Results for this | | | e | 8:59 PM | | procedure are in the | | | | PST | | results section. | + +--------+ + + + | COMPREHENSIVE | STAT | 01/04/2020 | | Results for this | | METABOLIC PANEL | | 8:59 PM | | procedure are in the | | | | PST | | results section. | + +--------+ + + + | ED INFORMATION | Routin | 01/04/2020 | | | | EXCHANGE | e | 6:46 PM | | | | | | PST | | | + +--------+ + + + +---+--------+ | | | | | Proced | | | ure | | | Note - | | | Juan, | | | Lab In | | | | | | Hlseve | | | n - | | | 02/27/ | | | 2020 | | | 6:47 | | | PM PST | | | | | | Format | | | ting | | | of | | | this | | | note | | | might | | | be | | | differ | | | ent | | | from | | | the | | | origin | | | al.COL | | | LECTIV | | | E?NOTI | | | FICATI | | | ON?02/ | | | 27/202 | | | 0 | | | 18:46? | | | DYE, | | | CELY | | | | | | F?MRN: | | | | | | [id number] | | | [id number] | | | riteri | | | a Met | | | Care | | | Guidel | | | inesSe | | | curity | | | and | | | Safety | | | No | | | recent | | | | | | Securi | | | ty | | | Events | | | | | | curren | | | tly on | | | | | | fileED | | | Care | | | Guidel | | | inesTh | | | ere | | | are | | | curren | | | tly no | | | ED | | | Care | | | Guidel | | | bandar | | | for | | | this | | | patien | | | t. | | | Please | | | check | | | your | | | facili | | | ty's | | | medica | | | l | | | record | | | s | | | system | | | .Care | | | Histor | | | yMedic | | | al/Avery | | | [email or web address] | | | /7/20 | | | 12:00 | | | AM | | | [facility] | | | alPati | | | ent | | | stated | | | he | | | will | | | make | | | sure | | | repeat | | | labs | | | are | | | done | | | for | | | Dr. | | | Acoum | | | per ED | | | | | | discha | | | rge | | | instru | | | ctions | | | and | | | will | | | schedu | | | le | | | follow | | | up | | | appoin | | | tments | | | with | | | him | | | and | | | Dr. | | | Townsl | | | ey.12/ | | | 12/18 | | | 12:00 | | | AM | | | [facility] | | | al | | | Patien | | | t is | | | curren | | | tly | | | establ | | | ished | | | with | | | St | [facility] | | | Clinic | | | . If | | | patien | | | t is | | | seen | | | in the | | | ED | | | during | | | | | | busine | | | ss | | | hours. | | | | | | Please | | | | | | contac | | | t [facility] at [facility] | | | | [facility] | | | y | | | Clinic | | | .Care | | | Recomm | | | endati | | | on:If | | | this | | | patien | | | t has | | | had 5 | | | or | | | more | | | Emerge | | | ncy | | | Depart | | | ment | | | visits | | | in | | | the | | | last | | | 12 | | | months | | | .? | | | Patien | | | t will | | | | | | requir | | | e | | | educat | | | ion on | | | the | | | scope | | | and | | | purpos | | | e of | | | the ED | | | as an | | | acute | | | care | | | provid | | | er not | | | a | | | Primar | | | y Care | | | | | | Provid | | | er and | | | | | | should | | | not | | | be | | | utiliz | | | ed for | | | | | | chroni | | | c | | | condit | | | ions.? | | | These | | | are | | | guidel | | | bandar | | | and | | | the | | | provid | | | er | | | should | | | | | | exerci | | | se | | | clinic | | | al | | | judgme | | | nt | | | when | | | provid | | | ing | | | care.P | | | rescri | | | ption | | | Drug | | | Report | | | (12 | | | Mo.)PD | | | MP | | | query | | | found | | | no | | | report | | | .E.D. | | | Visit | | | Count | | | (12 | | | mo.)Fa | | | cility | | | | | | Visits | | | Low | | | Acuity | | | | | | [facility] | | | | | [facility] | | | al | | | Medica | | | l | | | Center | | | 1 0 | | | [facility] | [facility] | | | al 2 0 | | | Total | | | 3 0 | | | Note: | | | Visits | | | | | | indica | | | te | | | total | | | known | | | visits | | | . | | | Medica | | | id Low | | | | | | Acuity | | | Dx | | | are | | | the | | | number | | | of | | | primar | | | y | | | diagno | | | ses on | | | the | | | Medica | | | id's | | | Low | | | Acuity | | | dx | | | list. | | | | | | Recent | | | | | | Emerge | | | ncy | | | Depart | | | ment | | | Visit | | | [facility] | | | yDate | | | Facili | | | ty | | | City | | | State | | | Type | | | Diagno | | | ses or | | | Chief | | | | | | Compla | | | int | | | Feb | | | 27, | | | 2020 | | | [facility] | | | | | [facility] | | | al | | | [facility] | | | [place] | | | [place] | | | Emerge | | | ncy | | | Ino 6, | | | 2020 | | | [facility] | | [place] | | | [place] | | | Emerge | | | ncy | | | 1 | | | Type 2 | | | | | | diabet | | | es | | | mellit | | | us w | | | diabet | | | ic | | | chroni | | | c | | | kidney | | | | | | diseas | | | e | | | Chroni | | | c | | | kidney | | | | | | diseas | | | e, | | | unspec | | | ified | | | 1 | | | Hypert | | | ensive | | | | | | chroni | | | c | | | kidney | | | | | | diseas | | | e w | | | stg | | | 1-4/un | | | sp chr | | | kdny | | | | | | Long | | | term | | | (curre | | | nt) | | | use of | | | | | | insuli | | | n | | | Person | | | al | | | histor | | | y of | | | nicoti | | | ne | | | depend | | | ence | | | | | | Other | | | long | | | term | | | (curre | | | nt) | | | drug | | | therap | | | y | | | Nausea | | | with | | | vomiti | | | ng, | | | unspec | | | ified | | | Rasheed | | | 11, | | | 2019 | | | [facility] [place] | | [place] | | | Emerge | | | ncy | | | Other | | | | | | specif | | | ied | | | disord | | | ers of | | | nose | | | and | | | nasal | | | sinuse | | | s | | | Long | | | term | | | (curre | | | nt) | | | use of | | | | | | insuli | | | n 1 | | | Type | | | 2 | | | diabet | | | es | | | mellit | | | us | | | withou | | | t | | | compli | | | cation | | | s | | | Other | | | long | | | term | | | (curre | | | nt) | | | drug | | | therap | | | y | | | Essent | | | ial | | | (prima | | | ry) | | | hypert | | | ension | | | | | | Acquir | | | ed | | | absenc | | | e of | | | other | | | specif | | | ied | | | parts | | | of | | | digest | | | zoie | | | tract | | | | | | Acne | | | vulgar | | | is | | | Person | | | al | | | histor | | | y of | | | nicoti | | | ne | | | depend | | | ence | | | Recent | | | | | | Inpati | | | ent | | | Visit | | | [facility] | | | yNo | | | record | | | ed | | | inpati | | | ent | | | visits | | | . Care | | | | | | TeamPr | | | ovider | | | | | | Specia | | | lty | | | Phone | | | Fax | | | Servic | | | e | | | Dates | | | [facility] | | | EY, | | | MALCOL | | | M C, | | | MD | | | Director Of National Sales | | | al | | | Medici | | | ne | | | Dec | | | 12, | | | 2018 - | | | | | | Curren | | | t DR | | | IGLESIA | | | ON, MD | | | Other | | | ([phone]) | | | | | | [phone] | | | 83 | | | ([phone]) | | | [phone] | | | 97 Dec | | | 7, | | | 2016 - | | | | | | Curren | | | t | | | [facility] | | | tive | | | Portal | | | This | | | patien | | | t has | | | regist | | | ered | | | at the | | | | | | [facility] | | | | | | [facility] | | | al | | | Medica | | | l | | | Center | | | | | | Emerge | | | ncy | | | Depart | | | ment | | | For | | | more | | | inform | | | ation | | | visit: | | | | | | https: | | | //secu | | | re.col | | | lectiv | | | emedic | | | al.com | | | /notif | | | [id number] | | | [id number] | | | [id number] | | | [phone] | | | [phone] | | | [phone] | | | 5c | | | PLEASE | | | NOTE: | | | 1. | | | Any | | | care | | | recomm | | | endati | | | ons | | | and | | | other | | | clinic | | | al | | | inform | | | ation | | | are | | | provid | | | ed as | | | guidel | | | bandar | | | or for | | | | | | histor | | | ical | | | purpos | | | es | | | only, | | | and | | | provid | | | ers | | | should | | | | | | exerci | | | se | | | their | | | own | | | clinic | | | al | | | judgme | | | nt | | | when | | | provid | | | ing | | | care. | | | 2. | | | You | | | may | | | only | | | use | | | this | | | inform | | | ation | | | for | | | purpos | | | es of | | | treatm | | | ent, | | | paymen | | | t or | | | health | | | care | | | operat | | | ions | | | activi | | | ties, | | | and | | | subjec | | | t to | | | the | | | limita | | | tions | | | of | | | applic | | | able | | | [facility] | | | tive | | | Polici | | | es. | | | 3. | | | You | | | should | | | | | | consul | | | t | | | direct | | | ly | | | with | | | the | | | organi | | | zation | | | that | | | provid | | | ed a | | | care | | | guidel | | | ine or | | | other | | | | | | clinic | | | al | | | histor | | | y with | | | any | | | questi | | | ons | | | about | | | additi | | | onal | | | inform | | | ation | | | or | | | accura | | | cy or | | | comple | | | teness | | | of | | | inform | | | ation | | | provid | | | ed.? | | | 2019 | | | [facility] | | | tive | | | Med[employer] | | | l | | | [employer] | | | logies | | | , [employer] | | | - | | | [email or web address] | | | llecti | | | vemedi | | | [email or web address] | | | m | +---+--------+ documented in this encounter Results LABS - EXTERNAL SCAN (01/11/2020 12:00 AM PST) + + + | Narrative | Performed At | + + + | Ordered by an | | | unspecified provider. | | + + + POC Glucose (01/10/2020 11:31 AM PST) + + + + + + | Component | Value | Ref Range | Performed | Pathologist | | | | | At | Signature | + + + + + + | Glucose, | 89Comment: Testing | 65 - 99 mg/dL | [facility] | | | POC | performed at [facility];[address] | | | | [address];[place], [place] | | | | | | [address] | | | | + + + + + + + + | Specimen | + + | | + + + + + + + | Performing | Address | City/State/Zipcode | Phone Number | | Organization | | | | + + + + + | [facility] | [address] | [place] [address] | [phone] | + + + + + HEMODIALYSIS (01/10/2020 9:53 AM PST) + + + | Narrative | Performed At | + + + | Eros Rothman MD 02/04/2020 10:20 PM Hospital Problem List: | | | Principal Problem: CKD (chronic kidney disease) stage 5, GFR less | | | than 15 ml/min Active Problems: 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 U/O is lower vs | | | last week. The following portions of the patient's history were | | | reviewed and updated as appropriate: laboratory data, allergies, | | | current medications, and problem list. Current Meds: | | | amLODIPine 5 mg Oral Daily | | | atorvaSTATin 20 mg Oral Nightly | | | calcium acetate 667 mg Oral TID WC | | | heparin 3,400 Units Intracatheter Once | | | heparin 5,000 Units Subcutaneous 2 times per day | | | insulin glargine 14 Units Subcutaneous Daily | | | insulin lispro 0-6 Units Subcutaneous 4x Daily WC and HS | | | insulin lispro 5 Units Subcutaneous TID WC | | | metoprolol succinate 50 mg Oral Daily | | | sodium bicarbonate 650 mg Oral TID | | | dextrose 10% | | | sodium chloride 0.9% 1,000 mL (01/09/202026) P.E. BP 150/86 | | | | Pulse 88 | Temp 37.2 C (99 F) (Oral) | Resp 20 | Ht | | | 1.829 m (6') | Wt 82 kg (180 lb 12.4 oz) | SpO2 96% | BMI | | | 24.52 kg/m General appearance: Pleasant, not in acute distress. | | | Flat in bed comfortably. Lungs: Good A/E to auscultation | | | bilaterally. There are no wheezes. Heart: Regular rate and | | | rhythm without any rub, gallop. No murmur. Abdominal exam: Soft | | | and nontender with normal bowel sounds. Extremities: Warm to touch | | | with trace right leg edema. There is no cyanosis. Neurological: | | | Awake, alert, and oriented to time, place, and person. Normal | | | gross motor power. There is no asterixis. Access: right tunneled IJ | | | with good flow. Access #2: Left brachiocephalic fistula with good | | | thrill. Recent Labs 01/10/20 0522 01/08/20 0435 BUN 36* | | | 51* CREA 6.9* 7.72* EGFR 9* 7* NA 134* 139 K 3.8 3.4* CL 106 | | | 103 CO2 24 24 CALCIUM 8.0* 8.3* MG 1.5* -- ALBUMIN -- | | | 3.2* HGB 7.4* 7.7* HCT 23.6* 24.0* I/O last 3 completed | | | shifts: In: 2819 [P.O.:1630; I.V.:1189] Out: 750 [Urine:750] No | | | intake/output data recorded. Assessment: Mr. Hneley is a 49 y.o. | | | male patient with severe acute uremia (severe hyperphosphatemia, | | | severe anemia, nausea), including uremic encephalopathy (sleepiness; | | | slow reaction; generalized weakness). requiring acute dialysis. He | | | now is likely in ESRD. High risk for electrolytes imbalance Anemia | | | in ESRD Tolerating dialysis well. Access: no issues. | | | Complications identified during his dialysis treatment: None. | | | Recommendations: UF: minimal as tolerated. Vasoactive meds as | | | ordered. NALLELY IV as ordered. K restriction to 3g a day. Na | | | restriction 2g a day. Will consider stopping the NaHCO3. Next | | | dialysis treatment is MWF per the submitted pre-sandoval orders. Eros H | | | MD Lorna | | + + + POC Glucose (01/10/2020 7:58 AM PST) + + + + + + | Component | Value | Ref Range | Performed | Pathologist | | | | | At | Signature | + + + + + + | Glucose, | 104 (H)Comment: Testing | 65 - 99 mg/dL | [facility] | | | POC | performed at [facility];[address] | | LABORATORY | | | | [address];[place] | | | | | | [address] | | | | + + + + + + + + | Specimen | + + | | + + + + + + + | Performing | Address | City/State/Zipcode | Phone Number | | Organization | | | | + + + + + | [facility] | [address] | [place] [address] | [phone] | + + + + + Hemoglobin A1C (01/10/2020 5:22 AM PST) + + + + + + | Component | Value | Ref Range | Performed | Pathologist | | | | | At | Signature | + + + + + + | Hemoglobin | 6.3 (H)Comment: HbA1c | 4.0 - 6.0 % | [facility] | | | A1c | method is certified by | | LABORATORY | | | | NGSP and traceable to | | | | | | the DCCT reference | | | | | | method.ADA guidelines | | | | | | indicate: | | | | | | Prediabetes: 5.7 - 6.4 | | | | | | Diabetes: >6.4 | | | | | | Glycemic control for | | | | | | adults with diabetes: | | | | | | <7.0Effective 11/23/2018: | | | | | | Note New Method | | | | + + + + + + | Estimated | 134Comment: Estimated | <154 mg/dL | [facility] | | | Average | Average Glucose | | LABORATORY | | | Glucose | calculated from | | | | | | hemoglobin A1c by use of | | | | | | the ADArecommended | | | | | | formula.Testing | | | | | | performed at [facility], [address] | | | | | | [facility], | | | | | | [place] [address] | | | | + + + + + + + + | Specimen | + + | Blood | + + + + + + + | Performing | Address | City/State/Zipcode | Phone Number | | Organization | | | | + + + + + | [facility] | [address] | [place] [address] | [phone] | + + + + + Magnesium (01/10/2020 5:22 AM PST) + + + + + + | Component | Value | Ref Range | Performed | Pathologist | | | | | At | Signature | + + + + + + | Magnesium | 1.5 (L)Comment: Testing | 1.7 - 2.4 mg/dL | [facility] | | | | performed at [facility], [address] | | LABORATORY | | | | [address], | | | | | | [place] [address] | | | | + + + + + + + + | Specimen | + + | Blood | + + + + + + + | Performing | Address | City/State/Zipcode | Phone Number | | Organization | | | | + + + + + | [facility] | [address] | [place] [address] | [phone] | + + + + + CBC with Differential (01/10/2020 5:22 AM PST) + + + + + + | Component | Value | Ref Range | Performed | Pathologist | | | | | At | Signature | + + + + + + | WBC | 8.64 | 3.80 - 11.00 | [facility] | | | | | K/uL | LABORATORY | | + + + + + + | Red Blood | 2.59 (L) | 4.20 - 5.70 | [facility] | | | Cells | | M/uL | LABORATORY | | + + + + + + | Hemoglobin | 7.4 (L) | 13.2 - 17.0 | [facility] | | | | | g/dL | LABORATORY | | + + + + + + | Hematocrit | 23.6 (L) | 39.0 - 50.0 % | [facility] | | | | | | LABORATORY | | + + + + + + | MCV | 91.1 | 80.0 - 100.0 fl | [facility] | | | | | | LABORATORY | | + + + + + + | MCH | 28.6 | 27.0 - 34.0 pg | [facility] | | | | | | LABORATORY | | + + + + + + | MCHC | 31.4 (L) | 32.0 - 35.5 | [facility] | | | | | g/dL | LABORATORY | | + + + + + + | RDW-SD | 45.0 | 37 - 53 fl | [facility] | | | | | | LABORATORY | | + + + + + + | Platelet | 194 | 150 - 400 K/uL | [facility] | | | Count | | | LABORATORY | | + + + + + + | MPV | 11.3Comment: NO NORMAL | fl | [facility] | [...] + + + + | % | 72.10 | % | [facility] | | | Neutrophils | | | LABORATORY | | + + + + + + | IMMATURE | 0.90 | % | [facility] | | | GRANULOCYTE | | | LABORATORY | | + + + + + + | % | 14.70 | % | [facility] | | | Lymphocytes | | | LABORATORY | | + + + + + + | Monocyte % | 8.70 | % | [facility] | | | | | | LABORATORY | | + + + + + + | Eosinophils | 3.40 | % | [facility] | | | % | | | LABORATORY | | + + + + + + | Basophils % | 0.20 | % | [facility] | | | | | | LABORATORY | | + + + + + + | Neutrophils | 6.23 | 1.90 - 7.40 | [facility] | | | , Absolute | | K/uL | LABORATORY | | + + + + + + | IMMATURE | 0.08 (H)Comment: NOTE | 0.00 - 0.07 | [facility] | | | GRANS AB | NEW REFERENCE RANGE | K/uL | LABORATORY | | + + + + + + | Absolute | 1.27 | 1.00 - 3.90 | [facility] | | | Lymphocytes | | K/uL | LABORATORY | | + + + + + + | Absolute | 0.75 | 0.00 - 0.80 | [facility] | | | Monocytes | | K/uL | LABORATORY | | + + + + + + | Eosinophils | 0.29 | 0.00 - 0.50 | [facility] | | | , Absolute | | K/uL | LABORATORY | | + + + + + + | Basophils, | 0.02Comment: Testing | 0.00 - 0.10 | [facility] | | | Absolute | performed at [facility], [address] | K/uL | LABORATORY | | | | [address], | | | | | | [place] [address] | | | | + + + + + + + + | Specimen | + + | Blood | + + + + + + + | Performing | Address | City/State/Zipcode | Phone Number | | Organization | | | | + + + + + | [facility] | [address] | [place] [address] | [phone] | + + + + + Basic Metabolic Panel (01/10/2020 5:22 AM PST) + + + + + + | Component | Value | Ref Range | Performed | Pathologist | | | | | At | Signature | + + + + + + | Na | 134 (L) | 135 - 145 | [facility] | | | | | mmol/L | LABORATORY | | + + + + + + | K | 3.8 | 3.5 - 4.9 | [facility] | | | | | mmol/L | LABORATORY | | + + + + + + | Cl | 106 | 99 - 109 mmol/L | [facility] | | | | | | LABORATORY | | + + + + + + | CO2 | 24 | 23 - 32 mmol/L | [facility] | | | | | | LABORATORY | | + + + + + + | Anion Gap | 8 | 5 - 20 mmol/L | [facility] | | | | | | LABORATORY | | + + + + + + | Glucose | 85 | 65 - 99 mg/dL | [facility] | | | | | | LABORATORY | | + + + + + + | BUN | 36 (H) | 8 - 25 mg/dL | [facility] | | | | | | LABORATORY | | + + + + + + | Creatinine | 6.9 (H) | 0.70 - 1.30 | [facility] | | | | | mg/dL | LABORATORY | | + + + + + + | BUN/Creatin | 5 | | [facility] | | | ine Ratio | | | LABORATORY | | + + + + + + | Calcium | 8.0 (L) | 8.5 - 10.5 | [facility] | | | | | mg/dL | LABORATORY | | + + + + + + | Estimated | 9 (L)Comment: GFR <60: | >60 | [facility] | | | GFR | CHRONIC KIDNEY [...] | | | | | | MDRD IDID traceable | | | | | | equation.Testing | | | | | | performed at [facility], [address] | | | | | | [facility], | | | | | | [place] [address] | | | | + + + + + + + + | Specimen | + + | Blood | + + + + + + + | Performing | Address | City/State/Zipcode | Phone Number | | Organization | | | | + + + + + | [facility] | [address] | [place] [address] | [phone] | + + + + + POC Glucose (01/09/2020 8:40 PM PST) + + + + + + | Component | Value | Ref Range | Performed | Pathologist | | | | | At | Signature | + + + + + + | Glucose, | 176 (H)Comment: Testing | 65 - 99 mg/dL | [facility] | | | POC | performed at [facility];[address] | | LABORATORY | | | [address];[place], [place] | | | | | | [address] | | | | + + + + + + + + | Specimen | + + | | + + + + + + + | Performing | Address | City/State/Zipcode | Phone Number | | Organization | | | | + + + + + | [facility] | [address] | [place] [address] | [phone] | + + + + + POC Glucose (01/09/2020 4:51 PM PST) + + + + + + | Component | Value | Ref Range | Performed | Pathologist | | | | | At | Signature | + + + + + + | Glucose, | 89Comment: Testing | 65 - 99 mg/dL | [facility] | | | POC | performed at [facility];[address] | | LABORATORY | | | | [address];[place], [place] | | | | | | [address] | | | | + + + + + + + + | Specimen | + + | | + + + + + + + | Performing | Address | City/State/Zipcode | Phone Number | | Organization | | | | + + + + + | [facility] | [address] | [place] [address] | [phone] | + + + + + POC Glucose (01/09/2020 4:27 PM PST) + + + + + + | Component | Value | Ref Range | Performed | Pathologist | | | | | At | Signature | + + + + + + | Glucose, | 67Comment: Testing | 65 - 99 mg/dL | [facility] | | | POC | performed at [facility];[address] | | LABORATORY | | | | [address];[place] | | | | | | [address] | | | | + + + + + + + + | Specimen | + + | | + + + + + + + | Performing | Address | City/State/Zipcode | Phone Number | | Organization | | | | + + + + + | [facility] | [address] | [place] [address] | [phone] | + + + + + POC Glucose (01/09/2020 11:49 AM PST) + + + + + + | Component | Value | Ref Range | Performed | Pathologist | | | | | At | Signature | + + + + + + | Glucose, | 85Comment: Testing | 65 - 99 mg/dL | [facility] | | | POC | performed at [facility];[address] | | LABORATORY | | | | [address];[place] | | | | | | [address] | | | | + + + + + + + + | Specimen | + + | | + + + + + + + | Performing | Address | City/State/Zipcode | Phone Number | | Organization | | | | + + + + + | [facility] | [address] | [place] [address] | [phone] | + + + + + POC Glucose (01/09/2020 7:32 AM PST) + + + + + + | Component | Value | Ref Range | Performed | Pathologist | | | | | At | Signature | + + + + + + | Glucose, | 138 (H)Comment: Testing | 65 - 99 mg/dL | [facility] | | | POC | performed at [facility];[address] | | LABORATORY | | | | [address];[place] | | | | | | [address] | | | | + + + + + + + + | Specimen | + + | | + + + + + + + | Performing | Address | City/State/Zipcode | Phone Number | | Organization | | | | + + + + + | [facility] | [address] | [place] [address] | [phone] | + + + + + POC Glucose (01/09/2020 3:53 AM PST) + + + + + + | Component | Value | Ref Range | Performed | Pathologist | | | | | At | Signature | + + + + + + | Glucose, | 105 (H)Comment: Testing | 65 - 99 mg/dL | [facility] | | | POC | performed at [facility];[address] | | LABORATORY | | | | [address];[place], [place] | | | | | | [address] | | | | + + + + + + + + | Specimen | + + | | + + + + + + + | Performing | Address | City/State/Zipcode | Phone Number | | Organization | | | | + + + + + | [facility] | [address] | [place] [address] | [phone] | + + + + + POC Glucose (01/08/2020 8:24 PM PST) + + + + + + | Component | Value | Ref Range | Performed | Pathologist | | | | | At | Signature | + + + + + + | Glucose, | 81Comment: Testing | 65 - 99 mg/dL | [facility] | | | POC | performed at [facility];[address] | | LABORATORY | | | | [address];[place] | | | | | | [address] | | | | + + + + + + + + | Specimen | + + | | + + + + + + + | Performing | Address | City/State/Zipcode | Phone Number | | Organization | | | | + + + + + | [facility] | [address] | [place] [address] | [phone] | + + + + + POC Glucose (01/08/2020 4:06 PM PST) + + + + + + | Component | Value | Ref Range | Performed | Pathologist | | | | | At | Signature | + + + + + + | Glucose, | 85Comment: Testing | 65 - 99 mg/dL | [facility] | | | POC | performed at [facility];[address] | | LABORATORY | | | | [address];[place], [place] | | | | | | [address] | | | | + + + + + + + + | Specimen | + + | | + + + + + + + | Performing | Address | City/State/Zipcode | Phone Number | | Organization | | | | + + + + + | [facility] | [address] | [place] [address] | [phone] | + + + + + XR Chest PA and Lateral (01/08/2020 2:04 PM PST) + + | Specimen | + + | | + + + + + | Impressions | Performed At | + + + | Hyperinflation, without infiltrate. Air-fluid levels in bowel in | [facility] | | the upper abdomen. Correlate for ileus. Signed by: Ru | | Willie Dias M.D. Date/Time: 01/08/2020 2:13 PM | | + + + + + + | Narrative | Performed At | + + + | CHEST PA AND LATERAL CLINICAL INFORMATION: Dyspnea. | [facility] | | COMPARISON: None FINDINGS: Hyperinflation. Heart size is | | | normal. Lungs are clear. Right IJ MediPort tip mid SVC. | | | Osteopenia with mild degenerative changes of the spine. Air-fluid | | | levels in bowel loops in the upper abdomen, suggesting mild ileus. | | | No free air. | | + + + + + | Procedure Note | + + | Juan, Rad Results In 01/08/2020 2:17 PM PST | | CHEST PA AND LATERAL | | | | CLINICAL INFORMATION: | | Dyspnea. | | | | COMPARISON: | | None | | | | FINDINGS: | | Hyperinflation. Heart size is normal. Lungs are clear. Right IJ | | MediPort tip mid SVC. Osteopenia with mild degenerative changes of the | | spine. Air-fluid levels in bowel loops in the upper abdomen, | | suggesting mild ileus. No free air. | | | | IMPRESSION: | | Hyperinflation, without infiltrate. | | Air-fluid levels in bowel in the upper abdomen. Correlate for ileus. | | | | | | | | Signed by: Jerson Vences Shawn | | Sign Date/Time: 01/08/2020 2:13 PM | + + + +---------+ + + | Performing | Address | City/State/Zipcode | Phone Number | | Organization | | | | + +---------+ + + | [facility] | | | | + +---------+ + + POC Glucose (01/08/2020 11:36 AM PST) + + + + + + | Component | Value | Ref Range | Performed | Pathologist | | | | | At | Signature | + + + + + + | Glucose, | 88Comment: Testing | 65 - 99 mg/dL | [facility] | | | POC | performed at [facility];[address] | | LABORATORY | | | | [address];[place] | | | | | | [address] | | | | + + + + + + + + | Specimen | + + | | + + + + + + + | Performing | Address | City/State/Zipcode | Phone Number | | Organization | | | | + + + + + | [facility] | [address] | [place] [address] | [phone] | + + + + + HEMODIALYSIS (01/08/2020 9:39 AM PST) + + + | Narrative | Performed At | + + + | Eros Rothman MD 01/08/2020 7:59 PM Hospital Problem List: | | | Principal Problem: CKD (chronic kidney disease) stage 5, GFR less | | | than 15 ml/min Active Problems: 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 he says that he feels 'ok' today. | | | he denies any dizziness, cp, sob, abd pain, n/v. U/O is lower vs | | | last week. The following portions of the patient's history were | | | reviewed and updated as appropriate: laboratory data, allergies, | | | current medications, and problem list. Current Meds: | | | amLODIPine 5 mg Oral Daily | | | atorvaSTATin 20 mg Oral Nightly | | | calcium acetate 667 mg Oral TID WC | | | ferric gluconate 125 mg Intravenous Daily | | | heparin 4,000 Units Intracatheter Once | | | heparin 5,000 Units Subcutaneous 2 times per day | | | influenza IM vaccine 0.5 mL Intramuscular One Time Vaccine | | | insulin glargine 16 Units Subcutaneous Daily | | | insulin lispro 0-6 Units Subcutaneous 4x Daily WC and HS | | | insulin lispro 5 Units Subcutaneous TID WC | | | metoprolol succinate 50 mg Oral Daily | | | sodium bicarbonate 650 mg Oral TID | | | dextrose 10% | | | sodium chloride 0.9% 50 mL/hr at 01/08/20 0546 P.E. BP 145/76 | | | | Pulse 84 | Temp 37.1 C (98.7 F) (Oral) | Resp 18 | Ht | | | 1.829 m (6') | Wt 86.6 kg (190 lb 14.4 oz) | SpO2 98% | BMI | | | 25.89 kg/m General appearance: Pleasant, not in acute distress. | | | Lungs: Good A/E to auscultation bilaterally. There are no | | | wheezes. Heart: Regular rate and rhythm without any rub, gallop. | | | No murmur. Abdominal exam: Soft and nontender with normal bowel | | | sounds. Extremities: Warm to touch with trace right leg edema. | | | There is no cyanosis. Neurological: Awake, alert, and oriented | | | to time, place, and person. Normal gross motor power. There is no | | | asterixis. Access: right tunneled IJ with good flow. Access #2: | | | Left brachiocephalic fistula with good thrill. Recent Labs | | | 01/08/20 0435 01/07/20 0355 01/06/20 0515 01/06/20 0452 BUN | | | 51* 50* 83* -- CREA 7.72* 6.79* 9.76* -- EGFR 7* 9* 6* | | | -- NA 139 137 139 -- K 3.4* 3.4* 3.5 -- CL 103 99 | | | 102 -- CO2 24 27 22* -- CALCIUM 8.3* 7.9* 8.0* -- | | | PHOS -- 5.2* 7.4* -- MG -- -- 1.5* -- ALBUMIN | | | 3.2* 3.4* 3.3* -- HGB 7.7* 8.4* -- 8.0* HCT 24.0* 25.7* | | | -- 24.1* I/O last 3 completed shifts: In: 2779 [P.O.:1122; | | | I.V.:1657] Out: 700 [Urine:700] No intake/output data recorded. | | | Assessment: Mr. Henley is a 49 y.o. male patient with severe acute | | | uremia (severe hyperphosphatemia, severe anemia, nausea), including | | | uremic encephalopathy (sleepiness; slow reaction; generalized | | | weakness). requiring acute dialysis. He now is likely in ESRD. High | | | risk for electrolytes imbalance Anemia in ESRD Tolerating | | | dialysis well. Access: no issues. Complications identified during | | | his dialysis treatment: None. Recommendations: UF: minimal as | | | tolerated. NALLELY IV as ordered. Unrestrict K up to 3g a day. Next | | | dialysis treatment is 01/08/20 per the submitted pre-sandoval orders. | | | Eros Rothman MD | | + + + POC Glucose (01/08/2020 8:31 AM PST) + + + + + + | Component | Value | Ref Range | Performed | Pathologist | | | | | At | Signature | + + + + + + | Glucose, | 91Comment: Testing | 65 - 99 mg/dL | [facility] | | | POC | performed at [facility];[address] | | LABORATORY | | | | [address];[place] | | | | | | [address] | | | | + + + + + + + + | Specimen | + + | | + + + + + + + | Performing | Address | City/State/Zipcode | Phone Number | | Organization | | | | + + + + + | [facility] | [address] | [place] [address] | [phone] | + + + + + Comprehensive Metabolic Panel (01/08/2020 4:35 AM PST) + + + + + + | Component | Value | Ref Range | Performed | Pathologist | | | | | At | Signature | + + + + + + | Na | 139 | 135 - 145 | [facility] | | | | | mmol/L | LABORATORY | | + + + + + + | K | 3.4 (L) | 3.5 - 4.9 | [facility] | | | | | mmol/L | LABORATORY | | + + + + + + | Cl | 103 | 99 - 109 mmol/L | [facility] | | | | | | LABORATORY | | + + + + + + | CO2 | 24 | 23 - 32 mmol/L | [facility] | | | | | | LABORATORY | | + + + + + + | Anion Gap | 15 | 5 - 20 mmol/L | [facility] | | | | | | LABORATORY | | + + + + + + | Glucose | 78 | 65 - 99 mg/dL | [facility] | | | | | | LABORATORY | | + + + + + + | BUN | 51 (H) | 8 - 25 mg/dL | [facility] | | | | | | LABORATORY | | + + + + + + | Creatinine | 7.72 (H) | 0.70 - 1.30 | [facility] | | | | | mg/dL | LABORATORY | | + + + + + + | BUN/Creatin | 7 | | [facility] | | | ine Ratio | | | LABORATORY | | + + + + + + | Calcium | 8.3 (L) | 8.5 - 10.5 | [facility] | | | | | mg/dL | LABORATORY | | + + + + + + | Protein, | 5.4 (L) | 6.3 - 8.2 g/dL | [facility] | | | Total | | | LABORATORY | | + + + + + + | Albumin | 3.2 (L) | 3.6 - 5.0 g/dL | [facility] | | | | | | LABORATORY | | + + + + + + | Globulin | 2.2 | 1.3 - 4.9 g/dL | [facility] | | | | | | LABORATORY | | + + + + + + | A/G Ratio | 1.5 | 1.0 - 2.4 | [facility] | | | | | | LABORATORY | | + + + + + + | BILIRUBIN, | 0.2 | 0.1 - 1.5 mg/dL | [facility] | | | TOTAL | | | LABORATORY | | + + + + + + | ALK PHOS | 93 | 35 - 115 U/L | [facility] | | | | | | LABORATORY | | + + + + + + | AST | <8 (L) | 10 - 45 U/L | [facility] | | | | | | LABORATORY | | + + + + + + | ALT | <7 (L) | 10 - 65 U/L | [facility] | | | | | | LABORATORY | | + + + + + + | Estimated | 7 (L)Comment: GFR <60: | >60 | [facility] | | | GFR | CHRONIC KIDNEY [...] | | | | | performed at [facility] | | | | | | [facility];[place], [place] | | | | | | [address] | | | | + + + + + + + + | Specimen | + + | Blood | + + + + + + + | Performing | Address | City/State/Zipcode | Phone Number | | Organization | | | | + + + + + | [facility] | [address] | [place] [address] | [phone] | + + + + + CBC no Differential (01/08/2020 4:35 AM PST) + + + + + + | Component | Value | Ref Range | Performed | Pathologist | | | | | At | Signature | + + + + + + | WBC | 8.71 | 3.80 - 11.00 | [facility] | | | | | K/uL | LABORATORY | | + + + + + + | Red Blood | 2.71 (L) | 4.20 - 5.70 | [facility] | | | Cells | | M/uL | LABORATORY | | + + + + + + | Hemoglobin | 7.7 (L) | 13.2 - 17.0 | [facility] | | | | | g/dL | LABORATORY | | + + + + + + | Hematocrit | 24.0 (L) | 39.0 - 50.0 % | [facility] | | | | | | LABORATORY | | + + + + + + | MCV | 88.6 | 80.0 - 100.0 fl | [facility] | | | | | | LABORATORY | | + + + + + + | MCH | 28.4 | 27.0 - 34.0 pg | [facility] | | | | | | LABORATORY | | + + + + + + | MCHC | 32.1 | 32.0 - 35.5 | [facility] | | | | | g/dL | LABORATORY | | + + + + + + | RDW-SD | 45.1 | 37 - 53 fl | [facility] | | | | | | LABORATORY | | + + + + + + | Platelet | 195 | 150 - 400 K/uL | [facility] | | | Count | | | LABORATORY | | + + + + + + | MPV | 11.2Comment: NO NORMAL | fl | [facility] | | | | RANGE ESTABLISHEDTesting | | LABORATORY | | | | performed at [facility];[address] | | | | | | [address];[place] | | | | | | [id number] | | | | + + + + + + + + | Specimen | + + | Blood | + + + + + + + | Performing | Address | City/State/Zipcode | Phone Number | | Organization | | | | + + + + + | [facility] [facility] | [address] | [place] [address] | [phone] | + + + + + POC Glucose (01/07/2020 8:57 PM PST) + + + + + + | Component | Value | Ref Range | Performed | Pathologist | | | | | At | Signature | + + + + + + | Glucose, | 102 (H)Comment: Testing | 65 - 99 mg/dL | [facility] | | | POC | performed at [facility];[address] | | LABORATORY | | | | [address];[place] | | | | | | [address] | | | | + + + + + + + + | Specimen | + + | | + + + + + + + | Performing | Address | City/State/Zipcode | Phone Number | | Organization | | | | + + + + + | [facility] | [address] | [place] [address] | [phone] | + + + + + POC Glucose (01/07/2020 5:44 PM PST) + + + + + + | Component | Value | Ref Range | Performed | Pathologist | | | | | At | Signature | + + + + + + | Glucose, | 132 (H)Comment: Testing | 65 - 99 mg/dL | [facility] | | | POC | performed at [facility];[address] | | LABORATORY | | | | [address];[place] | | | | | | [address] | | | | + + + + + + + + | Specimen | + + | | + + + + + + + | Performing | Address | City/State/Zipcode | Phone Number | | Organization | | | | + + + + + | [facility] | [address] | [place] [address] | [phone] | + + + + + POC Glucose (01/07/2020 4:53 PM PST) + + + + + + | Component | Value | Ref Range | Performed | Pathologist | | | | | At | Signature | + + + + + + | Glucose, | 67Comment: Testing | 65 - 99 mg/dL | [facility] | | | POC | performed at [facility];[address] | | LABORATORY | | | | [address];[place], [place] | | | | | | [address] | | | | + + + + + + + + | Specimen | + + | | + + + + + + + | Performing | Address | City/State/Zipcode | Phone Number | | Organization | | | | + + + + + | [facility] | [address] | [place] [address] | [phone] | + + + + + POC Glucose (01/07/2020 4:16 PM PST) + + + + + + | Component | Value | Ref Range | Performed | Pathologist | | | | | At | Signature | + + + + + + | Glucose, | 48 (L)Comment: Testing | 65 - 99 mg/dL | [facility] | | | POC | performed at [facility];[address] | | LABORATORY | | | | [address];[place] | | | | | | [address] | | | | + + + + + + + + | Specimen | + + | | + + + + + + + | Performing | Address | City/State/Zipcode | Phone Number | | Organization | | | | + + + + + | [facility] | [address] | [place] [address] | [phone] | + + + + + POC Glucose (01/07/2020 11:38 AM PST) + + + + + + | Component | Value | Ref Range | Performed | Pathologist | | | | | At | Signature | + + + + + + | Glucose, | 116 (H)Comment: Testing | 65 - 99 mg/dL | [facility] | | | POC | performed at [facility];[address] | | LABORATORY | | | | [address];[place], [place] | | | | | | [address] | | | | + + + + + + + + | Specimen | + + | | + + + + + + + | Performing | Address | City/State/Zipcode | Phone Number | | Organization | | | | + + + + + | [facility] | [address] | [place] [address] | [phone] | + + + + + POC Glucose (01/07/2020 7:38 AM PST) + + + + + + | Component | Value | Ref Range | Performed | Pathologist | | | | | At | Signature | + + + + + + | Glucose, | 112 (H)Comment: Testing | 65 - 99 mg/dL | [facility] | | | POC | performed at [facility];[address] | | LABORATORY | | | | [address];[place], [place] | | | | | | [address] | | | | + + + + + + + + | Specimen | + + | | + + + + + + + | Performing | Address | City/State/Zipcode | Phone Number | | Organization | | | | + + + + + | [facility] | [address] | [place] [address] | [phone] | + + + + + Renal Function Panel (01/07/2020 3:55 AM PST) + + + + + + | Component | Value | Ref Range | Performed | Pathologist | | | | | At | Signature | + + + + + + | Na | 137 | 135 - 145 | [facility] | | | | | mmol/L | LABORATORY | | + + + + + + | K | 3.4 (L) | 3.5 - 4.9 | [facility] | | | | | mmol/L | LABORATORY | | + + + + + + | Cl | 99 | 99 - 109 mmol/L | [facility] | | | | | | LABORATORY | | + + + + + + | CO2 | 27 | 23 - 32 mmol/L | [facility] | | | | | | LABORATORY | | + + + + + + | Anion Gap | 14 | 5 - 20 mmol/L | [facility] | | | | | | LABORATORY | | + + + + + + | Glucose | 130 (H) | 65 - 99 mg/dL | [facility] | | | | | | LABORATORY | | + + + + + + | BUN | 50 (H) | 8 - 25 mg/dL | [facility] | | | | | | LABORATORY | | + + + + + + | Creatinine | 6.79 (H) | 0.70 - 1.30 | [facility] | | | | | mg/dL | LABORATORY | | + + + + + + | Calcium | 7.9 (L) | 8.5 - 10.5 | [facility] | | | | | mg/dL | LABORATORY | | + + + + + + | Albumin | 3.4 (L) | 3.6 - 5.0 g/dL | [facility] | | | | | | LABORATORY | | + + + + + + | Phosphorus | 5.2 (H) | 2.3 - 4.8 mg/dL | [facility] | | | | | | LABORATORY | | + + + + + + | Estimated | 9 (L)Comment: GFR <60: | >60 | [facility] | | | GFR | CHRONIC KIDNEY [...] | | | | | performed at [facility] | | | | | | [facility];[place], [place] | | | | | | [address] | | | | + + + + + + + + | Specimen | + + | | + + + + + + + | Performing | Address | City/State/Zipcode | Phone Number | | Organization | | | | + + + + + | [facility] | [address] | [place] [address] | [phone] | + + + + + CBC with Differential (01/07/2020 3:55 AM PST) + + + + + + | Component | Value | Ref Range | Performed | Pathologist | | | | | At | Signature | + + + + + + | WBC | 8.83 | 3.80 - 11.00 | [facility] | | | | | K/uL | LABORATORY | | + + + + + + | Red Blood | 2.95 (L) | 4.20 - 5.70 | [facility] | | | Cells | | M/uL | LABORATORY | | + + + + + + | Hemoglobin | 8.4 (L) | 13.2 - 17.0 | [facility] | | | | | g/dL | LABORATORY | | + + + + + + | Hematocrit | 25.7 (L) | 39.0 - 50.0 % | [facility] | | | | | | LABORATORY | | + + + + + + | MCV | 87.1 | 80.0 - 100.0 fl | [facility] | | | | | | LABORATORY | | + + + + + + | MCH | 28.5 | 27.0 - 34.0 pg | [facility] | | | | | | LABORATORY | | + + + + + + | MCHC | 32.7 | 32.0 - 35.5 | [facility] | | | | | g/dL | LABORATORY | | + + + + + + | RDW-SD | 44.1 | 37 - 53 fl | [facility] | | | | | | LABORATORY | | + + + + + + | Platelet | 214 | 150 - 400 K/uL | [facility] | | | Count | | | LABORATORY | | + + + + + + | MPV | 11.3Comment: NO NORMAL | fl | [facility] | [...] + + + + | % | 71.20 | % | [facility] | | | Neutrophils | | | LABORATORY | | + + + + + + | IMMATURE | 0.90 | % | [facility] | | | GRANULOCYTE | | | LABORATORY | | + + + + + + | % | 17.10 | % | [facility] | | | Lymphocytes | | | LABORATORY | | + + + + + + | Monocyte % | 8.60 | % | [facility] | | | | | | LABORATORY | | + + + + + + | Eosinophils | 1.60 | % | [facility] | | | % | | | LABORATORY | | + + + + + + | Basophils % | 0.60 | % | [facility] | | | | | | LABORATORY | | + + + + + + | Neutrophils | 6.29 | 1.90 - 7.40 | [facility] | | | , Absolute | | K/uL | LABORATORY | | + + + + + + | IMMATURE | 0.08 (H)Comment: NOTE | 0.00 - 0.07 | [facility] | | | GRANS AB | NEW REFERENCE RANGE | K/uL | LABORATORY | | + + + + + + | Absolute | 1.51 | 1.00 - 3.90 | [facility] | | | Lymphocytes | | K/uL | LABORATORY | | + + + + + + | Absolute | 0.76 | 0.00 - 0.80 | [facility] | | | Monocytes | | K/uL | LABORATORY | | + + + + + + | Eosinophils | 0.14 | 0.00 - 0.50 | [facility] | | | , Absolute | | K/uL | LABORATORY | | + + + + + + | Basophils, | 0.05Comment: Testing | 0.00 - 0.10 | [facility] | | | Absolute | performed at [facility];[address] | K/uL | LABORATORY | | | | [address];[place] | | | | | | [address] | | | | + + + + + + + + | Specimen | + + | Blood | + + + + + + + | Performing | Address | City/State/Zipcode | Phone Number | | Organization | | | | + + + + + | [facility] | [address] | [place] [address] | [phone] | + + + + + Clostridium difficile A and B EIA (01/06/2020 9:10 PM PST) + + + + + + | Component | Value | Ref Range | Performed | Pathologist | | | | | At | Signature | + + + + + + | Clostridium | POSITIVE (A) | NEG | [facility] | | | Difficile | | | LABORATORY | | | GDH Antigen | | | | | + + + + + + | C. Diff | NEGATIVE | NEG | [facility] | | | Toxin A/B | | | LABORATORY | | | EIA | | | | | + + + + + + | C. | Toxin not detected. | | [facility] | | | difficile, | Toxin may be present, | | LABORATORY | | | Interp | but at levels too low | | | | | | for detection. Please | | | | | | correlate results with | | | | | | patient's clinical | | | | | | presentation.Comment: | | | | | | Testing performed at | | | | | | [facility];[address];[place] [address] | | | | + + + + + + + + | Specimen | + + | Stool - Stool | | specimen (specimen) | + + + + + + + | Performing | Address | City/State/Zipcode | Phone Number | | Organization | | | | + + + + + | [facility] | [address] | [place] [address] | [phone] | + + + + + POC Glucose (01/06/2020 9:04 PM PST) + + + + + + | Component | Value | Ref Range | Performed | Pathologist | | | | | At | Signature | + + + + + + | Glucose, | 103 (H)Comment: Testing | 65 - 99 mg/dL | [facility] | | | POC | performed at [facility];[address] | | LABORATORY | | | | [address];[place] | | | | | | [address] | | | | + + + + + + + + | Specimen | + + | | + + + + + + + | Performing | Address | City/State/Zipcode | Phone Number | | Organization | | | | + + + + + | [facility] | [address] | [place] [address] | [phone] | + + + + + POC Glucose (01/06/2020 4:11 PM PST) + + + + + + | Component | Value | Ref Range | Performed | Pathologist | | | | | At | Signature | + + + + + + | Glucose, | 117 (H)Comment: Testing | 65 - 99 mg/dL | [facility] | | | POC | performed at [facility];[address] | | LABORATORY | | | | [address];[place], [place] | | | | | | [address] | | | | + + + + + + + + | Specimen | + + | | + + + + + + + | Performing | Address | City/State/Zipcode | Phone Number | | Organization | | | | + + + + + | [facility] | [address] [facility] | [place] [address] | [phone] | + + + + + POC Glucose (01/06/2020 11:03 AM PST) + + + + + + | Component | Value | Ref Range | Performed | Pathologist | | | | | At | Signature | + + + + + + | Glucose, | 86Comment: Testing | 65 - 99 mg/dL | [facility] | | | POC | performed at [facility];[address] | | LABORATORY | | | | [address];[place] | | | | | | [address] | | | | + + + + + + + + | Specimen | + + | | + + + + + + + | Performing | Address | City/State/Zipcode | Phone Number | | Organization | | | | + + + + + | [facility] | [address] | [place] [address] | [phone] | + + + + + Renal Function Panel (01/06/2020 5:15 AM PST) + + + + + + | Component | Value | Ref Range | Performed | Pathologist | | | | | At | Signature | + + + + + + | Na | 139 | 135 - 145 | [facility] | | | | | mmol/L | LABORATORY | | + + + + + + | K | 3.5 | 3.5 - 4.9 | [facility] | | | | | mmol/L | LABORATORY | | + + + + + + | Cl | 102 | 99 - 109 mmol/L | [facility] | | | | | | LABORATORY | | + + + + + + | CO2 | 22 (L) | 23 - 32 mmol/L | [facility] | | | | | | LABORATORY | | + + + + + + | Anion Gap | 19 | 5 - 20 mmol/L | [facility] | | | | | | LABORATORY | | + + + + + + | Glucose | 133 (H) | 65 - 99 mg/dL | [facility] | | | | | | LABORATORY | | + + + + + + | BUN | 83 (H) | 8 - 25 mg/dL | [facility] | | | | | | LABORATORY | | + + + + + + | Creatinine | 9.76 (H) | 0.70 - 1.30 | [facility] | | | | | mg/dL | LABORATORY | | + + + + + + | Calcium | 8.0 (L) | 8.5 - 10.5 | [facility] | | | | | mg/dL | LABORATORY | | + + + + + + | Albumin | 3.3 (L) | 3.6 - 5.0 g/dL | [facility] | | | | | | LABORATORY | | + + + + + + | Phosphorus | 7.4 (H) | 2.3 - 4.8 mg/dL | [facility] | | | | | | LABORATORY | | + + + + + + | Estimated | 6 (L)Comment: GFR <60: | >60 | [facility] | | | GFR | CHRONIC KIDNEY [...] | | | | | | MDRD IDID traceable | | | | | | equation.Testing | | | | | | performed at [facility];[address] | | | | | | [facility];[place], [place] | | | | | | [address] | | | | + + + + + + + + | Specimen | + + | | + + + + + + + | Performing | Address | City/State/Zipcode | Phone Number | | Organization | | | | + + + + + | [facility] | [address] | [place] [address] | [phone] | + + + + + Magnesium (01/06/2020 5:15 AM PST) + + + + + + | Component | Value | Ref Range | Performed | Pathologist | | | | | At | Signature | + + + + + + | Magnesium | 1.5 (L)Comment: Testing | 1.7 - 2.4 mg/dL | [facility] | | | | performed at [facility];[address] | | LABORATORY | | | | [address];[place] | | | | | | [address] | | | | + + + + + + + + | Specimen | + + | Blood | + + + + + + + | Performing | Address | City/State/Zipcode | Phone Number | | Organization | | | | + + + + + | [facility] | [address] | [place] [address] | [phone] | + + + + + CBC with Differential (01/06/2020 4:52 AM PST) + + + + + + | Component | Value | Ref Range | Performed | Pathologist | | | | | At | Signature | + + + + + + | WBC | 7.59 | 3.80 - 11.00 | [facility] | | | | | K/uL | LABORATORY | | + + + + + + | Red Blood | 2.81 (L) | 4.20 - 5.70 | [facility] | | | Cells | | M/uL | LABORATORY | | + + + + + + | Hemoglobin | 8.0 (L) | 13.2 - 17.0 | [facility] | | | | | g/dL | LABORATORY | | + + + + + + | Hematocrit | 24.1 (L) | 39.0 - 50.0 % | [facility] | | | | | | LABORATORY | | + + + + + + | MCV | 85.8 | 80.0 - 100.0 fl | [facility] | | | | | | LABORATORY | | + + + + + + | MCH | 28.5 | 27.0 - 34.0 pg | [facility] | | | | | | LABORATORY | | + + + + + + | MCHC | 33.2 | 32.0 - 35.5 | [facility] | | | | | g/dL | LABORATORY | | + + + + + + | RDW-SD | 44.1 | 37 - 53 fl | [facility] | | | | | | LABORATORY | | + + + + + + | Platelet | 197 | 150 - 400 K/uL | [facility] | | | Count | | | LABORATORY | | + + + + + + | MPV | 11.1Comment: NO NORMAL | fl | [facility] | [...] + + + + | % | 72.80 | % | [facility] | | | Neutrophils | | | LABORATORY | | + + + + + + | IMMATURE | 0.50 | % | [facility] | | | GRANULOCYTE | | | LABORATORY | | + + + + + + | % | 16.20 | % | [facility] | | | Lymphocytes | | | LABORATORY | | + + + + + + | Monocyte % | 8.30 | % | [facility] | | | | | | LABORATORY | | + + + + + + | Eosinophils | 1.70 | % | [facility] | | | % | | | LABORATORY | | + + + + + + | Basophils % | 0.50 | % | [facility] | | | | | | LABORATORY | | + + + + + + | Neutrophils | 5.52 | 1.90 - 7.40 | [facility] | | | , Absolute | | K/uL | LABORATORY | | + + + + + + | IMMATURE | 0.04Comment: NOTE NEW | 0.00 - 0.07 | [facility] | | | GRANS AB | REFERENCE RANGE | K/uL | LABORATORY | | + + + + + + | Absolute | 1.23 | 1.00 - 3.90 | [facility] | | | Lymphocytes | | K/uL | LABORATORY | | + + + + + + | Absolute | 0.63 | 0.00 - 0.80 | [facility] | | | Monocytes | | K/uL | LABORATORY | | + + + + + + | Eosinophils | 0.13 | 0.00 - 0.50 | [facility] | | | , Absolute | | K/uL | LABORATORY | | + + + + + + | Basophils, | 0.04Comment: Testing | 0.00 - 0.10 | [facility] | | | Absolute | performed at [facility];[address] | K/uL | LABORATORY | | | | [address];[place], [place] | | | | | | [address] | | | | + + + + + + + + | Specimen | + + | Blood | + + + + + + + | Performing | Address | City/State/Zipcode | Phone Number | | Organization | | | | + + + + + | [facility] | [address] | [place] [address] | [phone] | + + + + + Hepatitis B Core Ab, Total (01/05/2020 10:01 PM PST) + + + + + + | Component | Value | Ref Range | Performed | Pathologist | | | | | At | Signature | + + + + + + | Hepatitis B | NON REACTIVEComment: | NR | [facility] | | | Core Ab | Testing performed at | | LABORATORY | | | Total | [facility], [address] | | | | | | [place] | | | | | | [address] | | | | + + + + + + + + | Specimen | + + | Blood | + + + + + + + | Performing | Address | City/State/Zipcode | Phone Number | | Organization | | | | + + + + + | [facility] | [address] | [place] [address] | [phone] | + + + + + Hepatitis B Surface Ag (01/05/2020 9:46 PM PST) + + + + + + | Component | Value | Ref Range | Performed | Pathologist | | | | | At | Signature | + + + + + + | Hepatitis B | NON REACTIVEComment: | NR | [facility] | | | Surface Ag | Testing performed at | | LABORATORY | | | | [facility], [address] | | | | | | [place] | | | | | | [address] | | | | + + + + + + + + | Specimen | + + | Blood | + + + + + + + | Performing | Address | City/State/Zipcode | Phone Number | | Organization | | | | + + + + + | [facility] | [address] | [place] [address] | [phone] | + + + + + Hepatitis B Surface Ab, Quant (01/05/2020 9:45 PM PST) + + + + + + | Component | Value | Ref Range | Performed | Pathologist | | | | | At | Signature | + + + + + + | HEP B | <0.35Comment: <1.00 | <1.00 IV | [facility] | | | SURFACE | Non Immune1.00 | | LABORATORY | | | ANTIBODY | OR MORE Indicates | | | | | | vaccine response or | | | | | | response to HBV | | | | | | infection. An Index | | | | | | Value (IV) of 1.00 is | | | | | | equivalent to 10 mIU/mL. | | | | | | Samples with an IV | | | | | | of1.00 or greater are | | | | | | considered reactive | | | | | | (protected) in | | | | | | accordance with | | | | | | CDCGuidelines.Testing | | | | | | performed at [facility], [address] | | | | | [facility], | | | | | | [place] [address] | | | | + + + + + + + + | Specimen | + + | Blood | + + + + + + + | Performing | Address | City/State/Zipcode | Phone Number | | Organization | | | | + + + + + | [facility] | [address] | [place] [address] | [phone] | + + + + + POC Glucose (01/05/2020 9:33 PM PST) + + + + + + | Component | Value | Ref Range | Performed | Pathologist | | | | | At | Signature | + + + + + + | Glucose, | 105 (H)Comment: Testing | 65 - 99 mg/dL | [facility] | | | POC | performed at [facility];[address] | | LABORATORY | | | | [address];[place] | | | | | | [address] | | | | + + + + + + + + | Specimen | + + | | + + + + + + + | Performing | Address | City/State/Zipcode | Phone Number | | Organization | | | | + + + + + | [facility] | [address] | [place] [address] | [phone] | + + + + + POC Glucose (01/05/2020 5:03 PM PST) + + + + + + | Component | Value | Ref Range | Performed | Pathologist | | | | | At | Signature | + + + + + + | Glucose, | 105 (H)Comment: Testing | 65 - 99 mg/dL | [facility] | | | POC | performed at [facility];[address] | | LABORATORY | | | | [address];[place], [place] | | | | | | [address] | | | | + + + + + + + + | Specimen | + + | | + + + + + + + | Performing | Address | City/State/Zipcode | Phone Number | | Organization | | | | + + + + + | [facility] | [address] | [place] [address] | [phone] | + + + + + POC ISTAT, CG8, Venous (01/05/2020 3:37 PM PST) + + + + + + | Component | Value | Ref Range | Performed | Pathologist | | | | | At | Signature | + + + + + + | pH, Venous, | 7.437 (H) | 7.310 - 7.410 | [facility] | | | POC | | | LABORATORY | | + + + + + + | PCO2, | 31 (L) | 41 - 51 mmHG | [facility] | | | Venous, POC | | | LABORATORY | | + + + + + + | pO2, Venous | 43 (H) | 30 - 40 mmHG | [facility] | | | | | | LABORATORY | | + + + + + + | HCO3, | 21 (L) | 23 - 28 mmol/L | [facility] | | | Venous | | | LABORATORY | | + + + + + + | TCO2, POC | 22 (L) | 24 - 29 mEq/L | [facility] | | | | | | LABORATORY | | + + + + + + | POC Base | 3 (H) | 0.0 - 2.0 | [facility] | | | Deficit | | mmol/L | LABORATORY | | | mmol/L | | | | | + + + + + + | POC | 81.0 | 60 - 85 % | [facility] | | | [id number] | | | LABORATORY | | | .(%) | | | | | + + + + + + | Sodium, POC | 138 | 135 - 145 mEq/L | [facility] | | | | | | LABORATORY | | + + + + + + | Potassium, | 3.7 | 3.5 - 5.0 mEq/L | [facility] | | | POC | | | LABORATORY | | + + + + + + | Ionized | 1.03 (L) | 1.12 - 1.32 | [facility] | | | Calcium, | | mmol/L | LABORATORY | | | POC | | | | | + + + + + + | Glucose, | 105 (H) | 65 - 99 mg/dL | [facility] | | | POC | | | LABORATORY | | + + + + + + | Hematocrit, | 23 (LL) | 40.0 - 50.0 % | [facility] | | | POC | | | LABORATORY | | + + + + + + | Hemoglobin, | 7.8 (LL)Comment: Testing | 13.7 - 16.7 | [facility] | | | POC | performed at [facility];888 | g/dL | LABORATORY | | | | [address];[place] | | | | | | [address] | | | | + + + + + + + + | Specimen | + + | | + + + + + + + | Performing | Address | City/State/Zipcode | Phone Number | | Organization | | | | + + + + + | [facility] | [address] | [place] [address] | [phone] | + + + + + POC Glucose (01/05/2020 2:56 PM PST) + + + + + + | Component | Value | Ref Range | Performed | Pathologist | | | | | At | Signature | + + + + + + | Glucose, | 112 (H)Comment: Testing | 65 - 99 mg/dL | [facility] | | | POC | performed at [facility];[address] | LABORATORY | | | | [address];[place], [place] | | | | | | [address] | | | | + + + + + + + + | Specimen | + + | | + + + + + + + | Performing | Address | City/State/Zipcode | Phone Number | | Organization | | | | + + + + + | [facility] | [address] | [place] [address] | [phone] | + + + + + Basic Metabolic Panel (01/05/2020 2:10 PM PST) + + + + + + | Component | Value | Ref Range | Performed | Pathologist | | | | | At | Signature | + + + + + + | Na | 138 | 135 - 145 | [facility] | | | | | mmol/L | LABORATORY | | + + + + + + | K | 3.7 | 3.5 - 4.9 | [facility] | | | | | mmol/L | LABORATORY | | + + + + + + | Cl | 104 | 99 - 109 mmol/L | [facility] | | | | | | LABORATORY | | + + + + + + | CO2 | 21 (L) | 23 - 32 mmol/L | [facility] | | | | | | LABORATORY | | + + + + + + | Anion Gap | 17 | 5 - 20 mmol/L | [facility] | | | | | | LABORATORY | | + + + + + + | Glucose | 112 (H) | 65 - 99 mg/dL | [facility] | | | | | | LABORATORY | | + + + + + + | BUN | 104 (H) | 8 - 25 mg/dL | [facility] | | | | | | LABORATORY | | + + + + + + | Creatinine | 11.37 (H) | 0.70 - 1.30 | [facility] | | | | | mg/dL | LABORATORY | | + + + + + + | BUN/Creatin | 9 | | [facility] | | | ine Ratio | | | LABORATORY | | + + + + + + | Calcium | 7.7 (L) | 8.5 - 10.5 | [facility] | | | | | mg/dL | LABORATORY | | + + + + + + | Estimated | 5 (L)Comment: GFR <60: | >60 | [facility] [...] | | | | | performed at [facility];[address] | | | [address] | [address];[place], [place] | | | | | | [id number] | | | | + + + + + + + + | Specimen | + + | Blood | + + + + + + + | Performing | Address | City/State/Zipcode | Phone Number | | Organization | | | | + + + + + | [facility] | [address] | [place] [address] | [phone] | + + + + + HEMODIALYSIS 01/05/2020 1:41 PM PST) + + + | Narrative | Performed At | + + + | Eros Rothman MD 02/04/2020 10:23 PM Hospital Problem List: | | | Principal Problem: CKD (chronic kidney disease) stage 5, GFR less | | | than 15 ml/min Active Problems: 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 he says that he feels 'tired' now. he | | | denies any dizziness, cp, sob, abd pain, n/v. The following | | | portions of the patient's history were reviewed and updated as | | | appropriate: laboratory data, allergies, current medications, and | | | problem list. Current Meds: | | | amLODIPine 5 mg Oral Daily | | | atorvaSTATin 20 mg Oral Nightly | | | calcium acetate 667 mg Oral TID WC | | | ferric gluconate 125 mg Intravenous Daily | | | heparin 5,000 Units Subcutaneous 2 times per day | | | influenza IM vaccine 0.5 mL Intramuscular One Time Vaccine | | | insulin glargine 16 Units Subcutaneous Daily | | | insulin lispro 0-6 Units Subcutaneous 4x Daily WC and HS | | | insulin lispro 5 Units Subcutaneous TID WC | | | metoprolol succinate 50 mg Oral Daily | | | sodium bicarbonate 650 mg Oral TID | | | dextrose 10% | | | sodium chloride 0.9% 50 mL/hr at 01/05/20 1500 P.E. BP 175/80 | | | | Pulse 86 | Temp 36.7 C (98.1 F) (Oral) | Resp 18 | Ht | | | 1.829 m (6') | Wt 92.5 kg (203 lb 14.8 oz) | SpO2 99% | BMI | | | 27.66 kg/m General appearance: Pleasant, not in acute distress. | | | But tired. Lungs: Good A/E to auscultation bilaterally. There are | | | no wheezes. Heart: Regular rate and rhythm without any rub, | | | gallop. No murmur. Abdominal exam: Soft and nontender with normal | | | bowel sounds. Extremities: Warm to touch with trace right leg | | | edema. There is no cyanosis. Neurological: Awake, alert, and | | | oriented to time, place, and person. Normal gross motor power. | | | There is no asterixis. Access: right tunneled IJ with good flow. | | | Recent Labs 01/05/20 1537 01/05/20 1410 01/05/20 0825 | | | 01/05/20 0518 01/05/20 0023 01/04/20 2059 BUN -- 104* -- | | | 109* 106* 106* CREA -- 11.37* -- 11.47* 11.48* 11.34* | | | EGFR -- 5* -- 5* 5* 5* NA -- 138 -- 137 136 136 K | | | -- 3.7 -- 3.7 3.8 3.9 CL -- 104 -- 102 101 100 CO2 | | | -- 21* -- 22* 21* 21* CALCIUM -- 7.7* -- 7.7* 7.9* | | | 8.0* MG -- -- -- 1.9 -- -- ALBUMIN -- -- | | | -- 3.3* -- 3.7 HGB 7.8* -- -- 6.7* -- 7.7* HCT | | | 23* -- -- 20.5* -- 23.2* IRON -- -- 30* -- -- | | | -- I/O last 3 completed shifts: In: 150 [P.O.:150] Out: | | | 300 [Urine:300] I/O this shift: In: 349 [Blood:349] Out: 170 | | | [Urine:150] Assessment: Mr. Henley is a 49 y.o. male patient with | | | severe acute uremia (severe hyperphosphatemia, severe anemia, | | | nausea), including uremic encephalopathy (sleepiness; slow reaction; | | | generalized weakness). requiring acute dialysis. He now is likely | | | in ESRD. High risk for electrolytes imbalance Anemia in ESRD | | | Tolerating dialysis well. Access: no issues. Complications | | | identified during his dialysis treatment: None. Recommendations: | | | UF: minimal as tolerated. STAT NALLELY IV as ordered. Prot suppl | | | stressed Next dialysis treatment is per the submitted pre-sandoval orders. | | | Eros Rothman MD | | + + + POC Glucose (01/05/2020 11:13 AM PST) + + + + + + | Component | Value | Ref Range | Performed | Pathologist | | | | | At | Signature | + + + + + + | Glucose, | 119 (H)Comment: Testing | 65 - 99 mg/dL | [facility] | | | POC | performed at [facility];[address] | | LABORATORY | | | | [address];[place], [place] | | | | | | [address] | | | | + + + + + + + + | Specimen | + + | | + + + + + + + | Performing | Address | City/State/Zipcode | Phone Number | | Organization | | | | + + + + + | [facility] | [address] | [place] [address] | [phone] | + + + + + IR Tunnelled Dialysis Cath Insertion (01/05/2020 9:54 AM PST) + + | Specimen | + + | | + + + + -+ | Narrative | Performed At | + + -+ | PREOPERATIVE | [facility] | | DIAGNOSESEnd-stage renal disease and need for dialysis access. | | | POSTOPERATIVE DIAGNOSESEnd-stage renal disease and need for dialysis | | | access. PROCEDURE1. Moderate conscious sedation2. Ultrasound guided | | | access of right internal jugular vein.3. Placement of 23 cm tunneled | | | dialysis catheter under fluoroscopic guidance. SURGEONElpidio Gunter MD | | | ASSISTANTNone. ANESTHESIAModerate sedation, local anesthesia. Informed | | | consent was obtained from the patient. Continuous cardiac monitoring | | | was performed throughout the procedure. Conscious sedation was | | | provided by the nursing staff during the procedure under my | | | supervision.Sedation time: 10 minutesMedications: 1 mg Versed IV, 50 | | | Mcg Fentanyl IV ESTIMATED BLOOD LOSSMinimal. INDICATIONS Mr. Henley is a | | | pleasant 49-year-old male with acute on chronic renal failure. The | | | patient was referred to sd for placement of a PermCath for dialysis | | | access. FINDINGSA 23 cm catheter was placed in the right internal | | | jugular vein under fluoroscopic guidance with the tip of the catheter | | | in the right atrium. There was good aspiration and flush from all | | | ports. Each port was instilled with concentrated heparin as indicated. | | | DESCRIPTION OF PROCEDUREThe patient was properly identified and | | | brought to the rn labor and delivery. The patient was placed supine on the rn labor and delivery | | | table. The patient was given moderate sedation. The patient's right | | | neck and chest were then prepped and draped in the usual sterile | | | fashion. Local anesthetic was then given to the right neck and the | | | right internal jugular vein was accessed using a micropuncture needle. | | | A micropuncture wire was then inserted. A micropuncture sheath was | | | then inserted over the wire. Next, local anesthetic was then given to | | | the right chest and a 23 cm catheter was tunneled from the right chest | | | to the right neck. Once the catheter was in place, a stiff wire was | | | placed through the micropuncture sheath and serial dilators were then | | | used to dilate the right internal jugular vein tract. Once the right | | | IJ was dilated with the dilators, an introducer sheath was inserted | | | over a wire. The introducer was then removed and the catheter was then | | | inserted into the right internal jugular vein with the tip of the | | | catheter being placed into the right atrium. Once the catheter was | | | placed, the sheath was then removed and hemostasis was then assured. | | | The catheter was then aspirated first and flushed with heparinized | | | saline. The catheter was then instilled with concentrated heparin as | | | indicated. The neck incision was then closed with 3-0 Vicryl in a | | | subcuticular fashion and Dermabond was then placed on the skin. The | | | catheter was then secured to the skin using 3-0 Prolene sutures. Once | | | the catheter was secured, sterile dressings were then applied. At the | | | end of the case, sponge, needle and instrument counts were correct x2. | | | There were no apparent complications. IMPRESSIONProper placement of a | | | 23 cm tunneled dialysis catheter into the right internal jugular vein | | | with tip of catheter in right atrium. | | |moderate sedation. The patient's right neck and chest were then prepped | | |and draped in the usual sterile fashion. Local anesthetic was then given | | |to the right neck and the right internal jugular vein was accessed using a | | |micropuncture needle. A micropuncture wire was then inserted. A | | |micropuncture sheath was then inserted over the wire. Next, local | | |anesthetic was then given to the right chest and a 23 cm catheter was | | |tunneled from the right chest to the right neck. Once the catheter was in | | |place, a stiff wire was placed through the micropuncture sheath and serial | | |dilators were then used to dilate the right internal jugular vein tract. | | |Once the right IJ was dilated with the dilators, an introducer sheath was | | |inserted over a wire. The introducer was then removed and the catheter was | | |then inserted into the right internal jugular vein with the tip of the | | |catheter being placed into the right atrium. Once the catheter was placed, | | |the sheath was then removed and hemostasis was then assured. The catheter | | |was then aspirated first and flushed with heparinized saline. The | | |catheter was then instilled with concentrated heparin as indicated. The | | |neck incision was then closed with 3-0 Vicryl in a subcuticular fashion | | |and Dermabond was then placed on the skin. The catheter was then secured | | |to the skin using 3-0 Prolene sutures. Once the catheter was secured, | | |sterile dressings were then applied. At the end of the case, sponge, | | |needle and instrument counts were correct x2. There were no apparent | | |complications. | | | | | |IMPRESSION | | |Proper placement of a 23 cm tunneled dialysis catheter into the right | | |internal jugular vein with tip of catheter in right atrium. | | | | | | | | + + -+ + +---------+ + + | Performing | Address | City/State/Zipcode | Phone Number | | Organization | | | | + +---------+ + + | [facility] | | | | + +---------+ + + Red Blood Cells (PRBC) - Crossmatch (01/05/2020 8:25 AM PST) + + + + + + | Component | Value | Ref Range | Performed | Pathologist | | | | | At | Signature | + + + + + + | Product | RED CELL GROUP | | [facility] | | | Code | | | LABORATORY | | + + + + + + | Units | 1 | | [facility] | | | ordered | | | LABORATORY | | + + + + + + | BLOOD BANK | ORDER RECEIVED IN BLOOD | | [facility] | | | COMMENT | BANK. | | LABORATORY | | + + + + + + | BLOOD BANK | Testing performed at | | [facility] | | | COMMENT | [facility];[address] | LABORATORY | | [address];[place] [address] | | | | + + + + + + + + | Specimen | + + | | + + + + + + + | Performing | Address | City/State/Zipcode | Phone Number | | Organization | | | | + + + + + | [facility] | [address] | [place] [address] | [phone] | + + + + + Type and Screen (01/05/2020 8:25 AM PST) + + + + + + | Component | Value | Ref Range | Performed | Pathologist | | | | | At | Signature | + + + + + + | ABO Rh | A POSITIVE | | [facility] | | | | | | LABORATORY | | + + + + + + | Antibody | NEGATIVE | | [facility] | | | Screen | | | LABORATORY | | + + + + + + | BB BAND | [id number] | | [facility] | | | | | | LABORATORY | | + + + + + + | UNIT # | [id number] | | [facility] | | | | | | LABORATORY | | + + + + + + | Product | LEUKODEPLETED PC | | [facility] | | | Code | | | LABORATORY | | + + + + + + | Unit | 00 | | [facility] | | | Division | | | LABORATORY | | + + + + + + | Unit Status | ISSUED,FINAL | | [facility] | | | | | | LABORATORY | | + + + + + + | Transfusion | OK TO TRANSFUSE | | [facility] | | | Status | | | LABORATORY | | + + + + + + | CROSSMATCH | COMPATIBLETesting | | [facility] | | | RESULT | performed at [facility] | | LABORATORY | | | | [address];[place], [place] | | | | | | [address] | | | | + + + + + + + + | Specimen | + + | Blood | + + + + + + + | Performing | Address | City/State/Zipcode | Phone Number | | Organization | | | | + + + + + | [facility] | [address] | [place] [address] | [phone] | + + + + + Ferritin (01/05/2020 8:25 AM PST) + + + + + + | Component | Value | Ref Range | Performed | Pathologist | | | | | At | Signature | + + + + + + | Ferritin | 237Comment: Testing | 11 - 450 ng/mL | [facility] | | | | performed at [facility], [address] | | LABORATORY | | | | [address], | | | | | | [place] [address] | | | | + + + + + + + + | Specimen | + + | Blood | + + + + + + + | Performing | Address | City/State/Zipcode | Phone Number | | Organization | | | | + + + + + | [facility] | [address] | [place] [address] | [phone] | + + + + + Iron and Iron Binding Capacity (01/05/2020 8:25 AM PST) + + + + + + | Component | Value | Ref Range | Performed | Pathologist | | | | | At | Signature | + + + + + + | Iron | 30 (L) | 45 - 190 ug/dL | [facility] | | | | | | LABORATORY | | + + + + + + | Iron | 201 (L) | 250 - 450 ug/dL | [facility] | | | Binding | | | LABORATORY | | | Capacity | | | | | + + + + + + | Iron | 15 (L)Comment: Testing | 20 - 50 % | [facility] | | | Saturation | performed at [facility], [address] | | LABORATORY | | | | [address], | | | | | | [place] [address] | | | | + + + + + + + + | Specimen | + + | Blood | + + + + + + + | Performing | Address | City/State/Zipcode | Phone Number | | Organization | | | | + + + + + | [facility] | [address] | [place] [address] | [phone] | + + + + + POC Glucose (01/05/2020 7:32 AM PST) + + + + + + | Component | Value | Ref Range | Performed | Pathologist | | | | | At | Signature | + + + + + + | Glucose, | 174 (H)Comment: Testing | 65 - 99 mg/dL | [facility] | | | POC | performed at [facility];[address] | | LABORATORY | | | | [address];[place] | | | | | | [address] | | | | + + + + + + + + | Specimen | + + | | + + + + + + + | Performing | Address | City/State/Zipcode | Phone Number | | Organization | | | | + + + + + | [facility] | [address] [facility] | [place] [address] | [phone] | + + + + + POC Glucose (01/05/2020 6:39 AM PST) + + + + + + | Component | Value | Ref Range | Performed | Pathologist | | | | | At | Signature | + + + + + + | Glucose, | 159 (H)Comment: Testing | 65 - 99 mg/dL | [facility] | | | POC | performed at [facility];[address] | | LABORATORY | | | [address];[place], [place] | | | | | | [address] | | | | + + + + + + + + | Specimen | + + | | + + + + + + + | Performing | Address | City/State/Zipcode | Phone Number | | Organization | | | | + + + + + | [facility] | [address] | [place] [address] | [phone] | + + + + + US Renal Limited (01/05/2020 6:32 AM PST) + + | Specimen | + + | | + + + + + | Impressions | Performed At | + + + | 1. Thick-walled urinary bladder. Normal-sized prostate. 2. | [facility] | | Mildly prominent left renal pelvis without hydronephrosis at either | | | kidney. Signed by: Jerson Guadarrama, Eamon Macedo Date/Time: | | | 01/05/2020 6:44 AM | | + + + + + + | Narrative | Performed At | + + + | ULTRASOUND KIDNEYS AND BLADDER CLINICAL INFORMATION: Chronic | [facility] | | kidney disease. COMPARISON: None PROCEDURE: Evaluation of | | | the kidneys and urinary bladder. FINDINGS: Right kidney: 11.7 cm. | | | No solid renal mass, hydronephrosis or definitive calculi. Left | | | kidney: 10.2 cm. No solid renal mass, hydronephrosis or definitive | | | calculi. Prominent renal pelvis. Bladder: Distended with | | | asymmetric wall thickening with the posterior wall measuring 7.6 mm, | | | anterior wall measuring 4.9 mm. Bilateral ureteral jets visualized. | | | Postvoid residual 126 mL. Normal-sized prostate. | | + + + + + | Procedure Note | + + | Juan, Rad Results In - 01/05/2020 6:48 AM PST | | ULTRASOUND KIDNEYS AND BLADDER | | | | CLINICAL INFORMATION: | | Chronic kidney disease. | | | | COMPARISON: | | None | | | | PROCEDURE: | | Evaluation of the kidneys and urinary bladder. | | | | FINDINGS: | | Right kidney: 11.7 cm. No solid renal mass, hydronephrosis or | | definitive calculi. | | | | Left kidney: 10.2 cm. No solid renal mass, hydronephrosis or definitive | | calculi. Prominent renal pelvis. | | | | Bladder: Distended with asymmetric wall thickening with the posterior | | wall measuring 7.6 mm, anterior wall measuring 4.9 mm. Bilateral | | ureteral jets visualized. Postvoid residual 126 mL. Normal-sized | | prostate. | | | | IMPRESSION: | | 1. Thick-walled urinary bladder. Normal-sized prostate. | | 2. Mildly prominent left renal pelvis without hydronephrosis at either | | kidney. | | | | | | | | Signed by: Jerson Guadarrama David | | Sign Date/Time: 01/05/2020 6:44 AM | + + + +---------+ + + | Performing | Address | City/State/Zipcode | Phone Number | | Organization | | | | + +---------+ + + | [facility] | | | | + +---------+ + + Magnesium (01/05/2020 5:18 AM PST) + + + + + + | Component | Value | Ref Range | Performed | Pathologist | | | | | At | Signature | + + + + + + | Magnesium | 1.9Comment: Testing | 1.7 - 2.4 mg/dL | [facility] | | | | performed at [facility], [address] | | LABORATORY | | | | [address], | | | | | | [place] [address] | | | | + + + + + + + + | Specimen | + + | Blood | + + + + + + + | Performing | Address | City/State/Zipcode | Phone Number | | Organization | | | | + + + + + | [facility] | [address] | [place] [address] | [phone] | + + + + + Comprehensive Metabolic Panel (01/05/2020 5:18 AM PST) + + + + + + | Component | Value | Ref Range | Performed | Pathologist | | | | | At | Signature | + + + + + + | Na | 137 | 135 - 145 | [facility] | | | | | mmol/L | LABORATORY | | + + + + + + | K | 3.7 | 3.5 - 4.9 | [facility] | | | | | mmol/L | LABORATORY | | + + + + + + | Cl | 102 | 99 - 109 mmol/L | [facility] | | | | | | LABORATORY | | + + + + + + | CO2 | 22 (L) | 23 - 32 mmol/L | [facility] | | | | | | LABORATORY | | + + + + + + | Anion Gap | 17 | 5 - 20 mmol/L | [facility] | | | | | | LABORATORY | | + + + + + + | Glucose | 157 (H) | 65 - 99 mg/dL | [facility] | | | | | | LABORATORY | | + + + + + + | BUN | 109 (H) | 8 - 25 mg/dL | [facility] | | | | | | LABORATORY | | + + + + + + | Creatinine | 11.47 (H) | 0.70 - 1.30 | [facility] | | | | | mg/dL | LABORATORY | | + + + + + + | BUN/Creatin | 10 | | [facility] | | | ine Ratio | | | LABORATORY | | + + + + + + | Calcium | 7.7 (L) | 8.5 - 10.5 | [facility] | | | | | mg/dL | LABORATORY | | + + + + + + | Protein, | 6.1 (L) | 6.3 - 8.2 g/dL | [facility] | | | Total | | | LABORATORY | | + + + + + + | Albumin | 3.3 (L) | 3.6 - 5.0 g/dL | [facility] | | | | | | LABORATORY | | + + + + + + | Globulin | 2.8 | 1.3 - 4.9 g/dL | [facility] | | | | | | LABORATORY | | + + + + + + | A/G Ratio | 1.2 | 1.0 - 2.4 | [facility] | | | | | | LABORATORY | | + + + + + + | BILIRUBIN, | 0.2 | 0.1 - 1.5 mg/dL | [facility] | | | TOTAL | | | LABORATORY | | + + + + + + | ALK PHOS | 102 | 35 - 115 U/L | [facility] | | | | | | LABORATORY | | + + + + + + | AST | <8 (L) | 10 - 45 U/L | [facility] | | | | | | LABORATORY | | + + + + + + | ALT | 8 (L) | 10 - 65 U/L | [facility] | | | | | | LABORATORY | | + + + + + + | Estimated | 5 (L)Comment: GFR <60: | >60 | [facility] | | | GFR | CHRONIC KIDNEY [...] | | | | | performed at [facility];[address] | | | | | | [address] [facility];[place], [place] | | | | | | [address] | | | | + + + + + + + + | Specimen | + + | Blood | + + + + + + + | Performing | Address | City/State/Zipcode | Phone Number | | Organization | | | | + + + + + | [facility] | [address] | [place] [address] | [phone] | + + + + + CBC with Differential (01/05/2020 5:18 AM PST) + + + + + + | Component | Value | Ref Range | Performed | Pathologist | | | | | At | Signature | + + + + + + | WBC | 8.23 | 3.80 - 11.00 | [facility] | | | | | K/uL | LABORATORY | | + + + + + + | Red Blood | 2.38 (L) | 4.20 - 5.70 | [facility] | | | Cells | | M/uL | LABORATORY | | + + + + + + | Hemoglobin | 6.7 (LL)Comment: RESULT | 13.2 - 17.0 | [facility] | | | | READ BACK BY:[facility] | g/dL | LABORATORY | | | | L/RN/8RP,[id number],LP | | | | | |EMORY L/RN/8RP,[id number],LP | | | | | | | | | | + + + + + + | Hematocrit | 20.5 (LL)Comment: RESULT | 39.0 - 50.0 % | [facility] | | | | READ BACK BY:CARLOS MANUEL | | LABORATORY | | | | L/RN/8RP,[id number],LP | | | | | |CARLOS MANUEL L/RN/8RP,[id number],LP | | | | | | | | | | + + + + + + | MCV | 86.1 | 80.0 - 100.0 fl | [facility] | | | | | | LABORATORY | | + + + + + + | MCH | 28.2 | 27.0 - 34.0 pg | [facility] | | | | | | LABORATORY | | + + + + + + | MCHC | 32.7 | 32.0 - 35.5 | [facility] | | | | | g/dL | LABORATORY | | + + + + + + | RDW-SD | 41.4 | 37 - 53 fl | [facility] | | | | | | LABORATORY | | + + + + + + | Platelet | 198 | 150 - 400 K/uL | [facility] | | | Count | | | LABORATORY | | + + + + + + | MPV | 11.8Comment: NO NORMAL | fl | [facility] | [...] + + + + | % | 74.10 | % | [facility] | | | Neutrophils | | | LABORATORY | | + + + + + + | IMMATURE | 0.60 | % | [facility] | | | GRANULOCYTE | | | LABORATORY | | + + + + + + | % | 14.80 | % | [facility] | | | Lymphocytes | | | LABORATORY | | + + + + + + | Monocyte % | 7.50 | % | [facility] | | | | | | LABORATORY | | + + + + + + | Eosinophils | 2.80 | % | [facility] | | | % | | | LABORATORY | | + + + + + + | Basophils % | 0.20 | % | [facility] | | | | | | LABORATORY | | + + + + + + | Neutrophils | 6.09 | 1.90 - 7.40 | [facility] | | | , Absolute | | K/uL | LABORATORY | | + + + + + + | IMMATURE | 0.05Comment: NOTE NEW | 0.00 - 0.07 | [facility] | | | GRANS AB | REFERENCE RANGE | K/uL | LABORATORY | | + + + + + + | Absolute | 1.22 | 1.00 - 3.90 | [facility] | | | Lymphocytes | | K/uL | LABORATORY | | + + + + + + | Absolute | 0.62 | 0.00 - 0.80 | [facility] | | | Monocytes | | K/uL | LABORATORY | | + + + + + + | Eosinophils | 0.23 | 0.00 - 0.50 | [facility] | | | , Absolute | | K/uL | LABORATORY | | + + + + + + | Basophils, | 0.02Comment: Testing | 0.00 - 0.10 | [facility] | | | Absolute | performed at [facility], [address] | K/uL | LABORATORY | | | | [address], | | | | | | [place] [address] | | | | + + + + + + + + | Specimen | + + | Blood | + + + + + + + | Performing | Address | City/State/Zipcode | Phone Number | | Organization | | | | + + + + + | [facility] | [address] | [place] [address] | [phone] | + + + + + POC Glucose (01/05/2020 3:43 AM PST) + + + + + + | Component | Value | Ref Range | Performed | Pathologist | | | | | At | Signature | + + + + + + | Glucose, | 157 (H)Comment: Testing | 65 - 99 mg/dL | [facility] | | | POC | performed at [facility];[address] | | LABORATORY | | | | [address];[place], [place] | | | | | | [address] | | | | + + + + + + + + | Specimen | + + | | + + + + + + + | Performing | Address | City/State/Zipcode | Phone Number | | Organization | | | | + + + + + | [facility] | [address] | [place] [address] | [phone] | + + + + + Creatinine, Urine, Random (01/05/2020 1:21 AM PST) + + + + + + | Component | Value | Ref Range | Performed | Pathologist | | | | | At | Signature | + + + + + + | Creatinine, | 78.7Comment: NO NORMAL | mg/dL | [facility] | | | random | RANGE ESTABLISHEDTesting | | LABORATORY | | | urine | performed at [facility], [address] | | | | | [address], | | | | | | [place] [address] | | | | + + + + + + + + | Specimen | + + | | + + + + + + + | Performing | Address | City/State/Zipcode | Phone Number | | Organization | | | | + + + + + | [facility] | [address] | [place] [address] | [phone] | + + + + + Sodium, Urine, Random (01/05/2020 1:21 AM PST) + + + + + + | Component | Value | Ref Range | Performed | Pathologist | | | | | At | Signature | + + + + + + | Sodium, | 54Comment: NO NORMAL | mmol/L | [facility] | | | Random | RANGE ESTABLISHEDTesting | | LABORATORY | | | urine | performed at [facility], [address], | | | | | | [place] [address] | | | | + + + + + + + + | Specimen | + + | Urine - Urine | | specimen (specimen) | + + + + + + + | Performing | Address | City/State/Zipcode | Phone Number | | Organization | | | | + + + + + | [facility] | [address] | [place] [address] | [phone] | + + + + + Protein/Creatinine Ratio, Urine (01/05/2020 1:21 AM PST) + + + + + + | Component | Value | Ref Range | Performed | Pathologist | | | | | At | Signature | + + + + + + | PRO/CREA | 3.736Comment: Testing | | [facility] | | | RATIO,URINE | performed at [facility], [address] | | LABORATORY | | | | [address], | | | | | | [place] [address] | | | | + + + + + + + + | Specimen | + + | Urine - Urine | | specimen (specimen) | + + + + + + + | Performing | Address | City/State/Zipcode | Phone Number | | Organization | | | | + + + + + | [facility] | [address] | [place] [address] | [phone] | + + + + + Protein, Urine, Random (01/05/2020 1:21 AM PST) + + + + + + | Component | Value | Ref Range | Performed | Pathologist | | | | | At | Signature | + + + + + + | Protein, | 294Comment: NO NORMAL | mg/dL | [facility] | | | Urine | RANGE ESTABLISHEDTesting | | LABORATORY | | | | performed at [facility], [address] | | | | | | [address], | | | | | | [place] [address] | | | | + + + + + + + + | Specimen | + + | Urine - Urine | | specimen (specimen) | + + + + + + + | Performing | Address | City/State/Zipcode | Phone Number | | Organization | | | | + + + + + | [facility] | [address] | [place] [address] | [phone] | + + + + + Potassium, Urine, Random (01/05/2020 1:21 AM PST) + + + + + + | Component | Value | Ref Range | Performed | Pathologist | | | | | At | Signature | + + + + + + | Potassium, | 21Comment: NO NORMAL | mmol/L | [facility] | | | Urine | RANGE ESTABLISHEDTesting | | LABORATORY | | | | performed at [facility], [address] | | | | | [address], | | | | | | [place] [address] | | | | + + + + + + + + | Specimen | + + | Urine - Urine | | specimen (specimen) | + + + + + + + | Performing | Address | City/State/Zipcode | Phone Number | | Organization | | | | + + + + + | [facility] | [address] | [place] [address] | [phone] | + + + + + Urinalysis with Microscopic if Indicated (01/05/2020 1:20 AM PST) + + + + + + | Component | Value | Ref Range | Performed | Pathologist | | | | | At | Signature | + + + + + + | Color, UA | YELLOW | | [facility] | | | | | | LABORATORY | | + + + + + + | Clarity, | HAZY | | [facility] | | | Urine | | | LABORATORY | | + + + + + + | Specific | 1.010 | 1.002 - 1.030 | [facility] | | | [place], | | | LABORATORY | | | Urine | | | | | + + + + + + | Leukocyte | TRACE (A) | NEG | [facility] | | | esterase, | | | LABORATORY | | | UA | | | | | + + + + + + | Nitrite, UA | NEGATIVE | NEG | [facility] | | | | | | LABORATORY | | + + + + + + | Urobilinoge | NORMAL | <1.6 mg/dL | [facility] | | | n, Ur | | | LABORATORY | | + + + + + + | Protein, | >500 (A) | NEG mg/dL | [facility] | | | Urine | | | LABORATORY | | | (mg/dL) | | | | | + + + + + + | pH, Urine | 5.0 | 5.0 - 8.0 | [facility] | | | | | | LABORATORY | | + + + + + + | Blood, UA | MODERATE (A) | NEG | [facility] | | | | | | LABORATORY | | + + + + + + | Ketones, UA | NEGATIVE | NEG mg/dL | [facility] | | | | | | LABORATORY | | + + + + + + | Bilirubin, | NEGATIVE | NEG | [facility] | | | UA | | | LABORATORY | | + + + + + + | Glucose, Ur | 50 (A) | NEG mg/dL | [facility] | | | | | | LABORATORY | | + + + + + + | WBC UA | 6-10 | 0 - 5 /hpf | [facility] | | | | | | LABORATORY | | + + + + + + | Red Blood | 0-2 | 0 - 2 /hpf | [facility] | | | Cells, | | | LABORATORY | | | Urine | | | | | + + + + + + | Bacteria, | 1+ (A) | NONE | [facility] | | | Urine | | | LABORATORY | | + + + + + + | Squamous | NONE SEENComment: | /lpf | [facility] | | | Epithelial | Testing performed at | | LABORATORY | | | Cells, | [facility];[address] | | | [address] | [address];[place] [address] | | | | + + + + + + + + | Specimen | + + | Urine - Urine | | specimen (specimen) | + + + + + + + | Performing | Address | City/State/Zipcode | Phone Number | | Organization | | | | + + + + + | [facility] | [address] | [place] [address] | [phone] | + + + + + Eosinophil Smear, Urine (01/05/2020 1:20 AM PST) + + + + + + | Component | Value | Ref Range | Performed | Pathologist | | | | | At | Signature | + + + + + + | Eosinophils | RARE EOSINOPHIL SEEN ON | <1 % | [facility] | | | | SCAN BUT NOT INCLUDED IN | | LABORATORY | | | | THE 100 WBC | | | | | | DIFFERENTIAL. (<1% | | | | | | EOSINOPHILS)Comment: | | | | | | Testing performed at | | | | | | [facility], [address] [facility] [address] | | | | | | [place] | | | | | | [address] | | | | + + + + + + + + | Specimen | + + | Urine - Urine | | specimen (specimen) | + + + + + + + | Performing | Address | City/State/Zipcode | Phone Number | | Organization | | | | + + + + + | [facility] | [address] | [place] [address] | [phone] | + + + + + Basic Metabolic Panel (01/05/2020 12:23 AM PST) + + + + + + | Component | Value | Ref Range | Performed | Pathologist | | | | | At | Signature | + + + + + + | Na | 136 | 135 - 145 | [facility] | | | | | mmol/L | LABORATORY | | + + + + + + | K | 3.8 | 3.5 - 4.9 | [facility] | | | | | mmol/L | LABORATORY | | + + + + + + | Cl | 101 | 99 - 109 mmol/L | [facility] | | | | | | LABORATORY | | + + + + + + | CO2 | 21 (L) | 23 - 32 mmol/L | [facility] | | | | | | LABORATORY | | + + + + + + | Anion Gap | 18 | 5 - 20 mmol/L | [facility] | | | | | | LABORATORY | | + + + + + + | Glucose | 117 (H) | 65 - 99 mg/dL | [facility] | | | | | | LABORATORY | | + + + + + + | BUN | 106 (H) | 8 - 25 mg/dL | [facility] | | | | | | LABORATORY | | + + + + + + | Creatinine | 11.48 (H) | 0.70 - 1.30 | [facility] | | | | | mg/dL | LABORATORY | | + + + + + + | BUN/Creatin | 9 | | [facility] | | | ine Ratio | | | LABORATORY | | + + + + + + | Calcium | 7.9 (L) | 8.5 - 10.5 | [facility] | | | | | mg/dL | LABORATORY | | + + + + + + | Estimated | 5 (L)Comment: GFR <60: | >60 | [facility] | | | GFR | CHRONIC KIDNEY [...] | | | | | performed at [facility] | | | | | | [facility];[place], [place] | | | | | | [address] | | | | + + + + + + + + | Specimen | + + | Blood | + + + + + + + | Performing | Address | City/State/Zipcode | Phone Number | | Organization | | | | + + + + + | [facility] | [address] | [place] [address] | [phone] | + + + + + ECG 12 lead (01/04/2020 9:13 PM PST) + + + + + + | Component | Value | Ref Range | Performed | Pathologist | | | | | At | Signature | + + + + + + | VENTRICULAR | 82 | BPM | [facility] | | | RATE EKG | | | | | + + + + + + | ATRIAL RATE | 82 | BPM | [facility] | | + + + + + + | P-R | 178 | ms | [facility] | | | INTERVAL | | | | | + + + + + + | QRS | 92 | ms | [facility] | | | DURATION | | | | | + + + + + + | Q-T | 388 | ms | [facility] | | | INTERVAL | | | | | + + + + + + | Q-T | 453 | ms | [facility] | | | INTERVAL | | | | | | (CORRECTED) | | | | | + + + + + + | P WAVE AXIS | 73 | degrees | [facility] | | + + + + + + | QRS AXIS | 41 | degrees | [facility] | | + + + + + + | T AXIS | 55 | degrees | [facility] | | + + + + + + | INTERPRETAT | Normal sinus | | [facility] | | | ION TEXT | rhythmNormal ECGNo | | | | | | previous ECGs | | | | | | availableThis ECG | | | | | | contains Unconfirmed | | | | | | Interpretation | | | | | | Statements. See ED | | | | | | Record for Physician | | | | | | Interpretation. | | | | | | Confirmed by MUSE READ | | | | | | ONLY, -COMPUTER ([id number]), | | | | | | scientific editor Gideon Montano | | | | | | Dylan ([id number]) on 01/05/2020 | | | | | | 2:25:57 AM | | | | + + + + + + + + | Specimen | + + | | + + + + + | Narrative | Performed At | + + + | | | + + + + +---------+ + + | Performing | Address | City/State/Zipcode | Phone Number | | Organization | | | | + +---------+ + + | [facility] | | | | + +---------+ + + CK Total (01/04/2020 8:59 PM PST) + + + + + + | Component | Value | Ref Range | Performed | Pathologist | | | | | At | Signature | + + + + + + | CK TOTAL | 126Comment: Testing | 55 - 400 U/L | [facility] | | | | performed at [facility];[address] | | LABORATORY | | | | [address];[place], [place] | | | | | | [address] | | | | + + + + + + + + | Specimen | + + | | + + + + + + + | Performing | Address | City/State/Zipcode | Phone Number | | Organization | | | | + + + + + | [facility] | [address] | [place] [address] | [phone] | + + + + + Comprehensive Metabolic Panel (01/04/2020 8:59 PM PST) + + + + + + | Component | Value | Ref Range | Performed | Pathologist | | | | | At | Signature | + + + + + + | Na | 136 | 135 - 145 | [facility] | | | | | mmol/L | LABORATORY | | + + + + + + | K | 3.9 | 3.5 - 4.9 | [facility] | | | | | mmol/L | LABORATORY | | + + + + + + | Cl | 100 | 99 - 109 mmol/L | [facility] | | | | | | LABORATORY | | + + + + + + | CO2 | 21 (L) | 23 - 32 mmol/L | [facility] | | | | | | LABORATORY | | + + + + + + | Anion Gap | 19 | 5 - 20 mmol/L | [facility] | | | | | | LABORATORY | | + + + + + + | Glucose | 115 (H) | 65 - 99 mg/dL | [facility] | | | | | | LABORATORY | | + + + + + + | BUN | 106 (H) | 8 - 25 mg/dL | [facility] | | | | | | LABORATORY | | + + + + + + | Creatinine | 11.34 (H) | 0.70 - 1.30 | [facility] | | | | | mg/dL | LABORATORY | | + + + + + + | BUN/Creatin | 9 | | [facility] | | | ine Ratio | | | LABORATORY | | + + + + + + | Calcium | 8.0 (L) | 8.5 - 10.5 | [facility] | | | | | mg/dL | LABORATORY | | + + + + + + | Protein, | 6.9 | 6.3 - 8.2 g/dL | [facility] | | | Total | | | LABORATORY | | + + + + + + | Albumin | 3.7 | 3.6 - 5.0 g/dL | [facility] | | | | | | LABORATORY | | + + + + + + | Globulin | 3.2 | 1.3 - 4.9 g/dL | [facility] | | | | | | LABORATORY | | + + + + + + | A/G Ratio | 1.2 | 1.0 - 2.4 | [facility] | | | | | | LABORATORY | | + + + + + + | BILIRUBIN, | 0.2 | 0.1 - 1.5 mg/dL | [facility] | | | TOTAL | | | LABORATORY | | + + + + + + | ALK PHOS | 113 | 35 - 115 U/L | [facility] | | | | | | LABORATORY | | + + + + + + | AST | <8 (L) | 10 - 45 U/L | [facility] | | | | | | LABORATORY | | + + + + + + | ALT | 9 (L) | 10 - 65 U/L | [facility] | | | | | | LABORATORY | | + + + + + + | Estimated | 5 (L)Comment: GFR <60: | >60 | [facility] [...] | | | | | performed at [facility];[address] | | | | | | [facility];[place], [place] | | | | | | [address] | | | | + + + + + + + + | Specimen | + + | Blood | + + + + + + + | Performing | Address | City/State/Zipcode | Phone Number | | Organization | | | | + + + + + | [facility] | [address] | [place] [address] | [phone] | + + + + + CBC with Differential (01/04/2020 8:59 PM PST) + + + + + + | Component | Value | Ref Range | Performed | Pathologist | | | | | At | Signature | + + + + + + | WBC | 9.01 | 3.80 - 11.00 | [facility] | | | | | K/uL | LABORATORY | | + + + + + + | Red Blood | 2.71 (L) | 4.20 - 5.70 | [facility] | | | Cells | | M/uL | LABORATORY | | + + + + + + | Hemoglobin | 7.7 (L) | 13.2 - 17.0 | [facility] | | | | | g/dL | LABORATORY | | + + + + + + | Hematocrit | 23.2 (L) | 39.0 - 50.0 % | [facility] | | | | | | LABORATORY | | + + + + + + | MCV | 85.6 | 80.0 - 100.0 fl | [facility] | | | | | | LABORATORY | | + + + + + + | MCH | 28.4 | 27.0 - 34.0 pg | [facility] | | | | | | LABORATORY | | + + + + + + | MCHC | 33.2 | 32.0 - 35.5 | [facility] | | | | | g/dL | LABORATORY | | + + + + + + | RDW-SD | 42.5 | 37 - 53 fl | [facility] | | | | | | LABORATORY | | + + + + + + | Platelet | 239 | 150 - 400 K/uL | [facility] | | | Count | | | LABORATORY | | + + + + + + | MPV | 11.5Comment: NO NORMAL | fl | [facility] | [...] + + + + | % | 69.70 | % | [facility] | | | Neutrophils | | | LABORATORY | | + + + + + + | IMMATURE | 0.60 | % | [facility] | | | GRANULOCYTE | | | LABORATORY | | + + + + + + | % | 17.50 | % | [facility] | | | Lymphocytes | | | LABORATORY | | + + + + + + | Monocyte % | 7.90 | % | [facility] | | | | | | LABORATORY | | + + + + + + | Eosinophils | 3.60 | % | [facility] | | | % | | | LABORATORY | | + + + + + + | Basophils % | 0.70 | % | [facility] | | | | | | LABORATORY | | + + + + + + | Neutrophils | 6.29 | 1.90 - 7.40 | [facility] | | | , Absolute | | K/uL | LABORATORY | | + + + + + + | IMMATURE | 0.05Comment: NOTE NEW | 0.00 - 0.07 | [facility] | | | GRANS AB | REFERENCE RANGE | K/uL | LABORATORY | | + + + + + + | Absolute | 1.58 | 1.00 - 3.90 | [facility] | | | Lymphocytes | | K/uL | LABORATORY | | + + + + + + | Absolute | 0.71 | 0.00 - 0.80 | [facility] | | | Monocytes | | K/uL | LABORATORY | | + + + + + + | Eosinophils | 0.32 | 0.00 - 0.50 | [facility] | | | , Absolute | | K/uL | LABORATORY | | + + + + + + | Basophils, | 0.06Comment: Testing | 0.00 - 0.10 | [facility] | | | Absolute | performed at [facility];[address] | K/[address] | LABORATORY | | | | [address];[place], [place] | | | | | | [address] | | | | + + + + + + + + | Specimen | + + | Blood | + + + + + + + | Performing | Address | City/State/Zipcode | Phone Number | | Organization | | | | + + + + + | [facility] | [address] | [place] [address] | [phone] | + + + + + documented in this encounter Visit Diagnoses + + | Diagnosis | + + | NELIA (acute kidney injury) ([facility]) - Primary Acute kidney failure, unspecified | + + | Acute renal failure, unspecified acute renal failure type ([facility]) | + + | ESRD (end stage renal disease) ([facility]) End stage renal disease | + + | CKD (chronic kidney disease) stage 5, GFR less than 15 ml/min ([facility]) Chronic kidney | | disease, Stage V | + + | Uremia, acute Acute kidney failure, unspecified | + + | At high risk for electrolyte imbalance | + + | Essential hypertension Unspecified essential hypertension | + + | Hyperphosphatemia Disorders of phosphorus metabolism | + + | Metabolic acidosis Acidosis | + + | Type 2 diabetes mellitus with diabetic nephropathy, with long-term current use of | | insulin ([facility]) | + + | Anemia in ESRD (end-stage renal disease) ([facility]) Anemia in chronic kidney disease | + + | Hypoalbuminemia Other disorders of plasma protein metabolism | + + | At high risk for falls Personal history of fall | + + | 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 ([facility]) Type II or unspecified type diabetes | | mellitus with ophthalmic manifestations, not stated as uncontrolled | + + | 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 ([facility]) Secondary diabetes mellitus with | | neurological manifestations, not stated as uncontrolled, or unspecified | + + | ESRD on hemodialysis ([facility]) End stage renal disease | + + | Anemia of chronic kidney failure, stage 5 ([facility]) | + + | S/P arteriovenous (AV) fistula creation | + + | S/P hemodialysis catheter insertion ([facility]) | + + | Uremic encephalopathy Metabolic encephalopathy | + + documented in this encounter Admitting Diagnoses + + | Diagnosis | + + | ESRD (end stage renal disease) ([facility]) End stage renal disease | + + documented in this encounter Administered Medications + +--------+ +------+------+------+ | Medication Order | MAR | Action | Dose | Rate | Site | | | Action | Date | | | | + +--------+ +------+------+------+ | amLODIPine (NORVASC) tablet 5 | Given | 01/10/20 | 5 mg | | | | mg 5 mg, Oral, DAILY, First dose | | 20 10:41 | | | | | on 01/05/20 at 0900 | | AM PST | | | | + +--------+ +------+------+------+ +-------+ +------+---+---+ | Given | 01/09/20 | 5 mg | | | | | 20 7:59 | | | | | | AM PST | | | | +-------+ +------+---+---+ | Given | 01/08/20 | 5 mg | | | | | 20 10:42 | | | | | | AM PST | | | | +-------+ +------+---+---+ +---+---+ | | | +---+---+ + +-------+ +-------+---+---+ | atorvaSTATin (LIPITOR) tablet | Given | 01/09/20 | 20 mg | | | | 20 mg 20 mg, Oral, NIGHTLY, | | 20 10:04 | | | | | First dose on Wed01/05/20 at 0030 | | PM PST | | | | + +-------+ +-------+---+---+ +-------+ +-------+---+---+ | Given | 01/08/20 | 20 mg | | | | | 20 8:39 | | | | | | PM PST | | | | +-------+ +-------+---+---+ | Given | 01/07/20 | 20 mg | | | | | 20 8:20 | | | | | | PM PST | | | | +-------+ +-------+---+---+ +---+---+ | | | +---+---+ + +-------+ +--------+---+---+ | calcium acetate (PHOSLO) | Given | 01/10/20 | 667 mg | | | | capsule 667 mg 667 mg, Oral, 3 | | 20 12:29 | | | | | TIMES DAILY WITH MEALS, First | | PM PST | | | | | dose on Wed01/05/20 at 0800, Hold | | | | | | | if not eating., | | | | | | + +-------+ +--------+---+---+ +-------+ +--------+---+---+ | Given | 01/09/20 | 667 mg | | | | | 20 6:14 | | | | | | PM PST | | | | +-------+ +--------+---+---+ | Given | 01/09/20 | 667 mg | | | | | 20 12:34 | | | | | | PM PST | | | | +-------+ +--------+---+---+ +---+---+ | | | +---+---+ + +---------+ +-----+-------+---+ | ceFAZolin in dextrose (ANCEF) | New Bag | 01/05/20 | 2 g | 200 | | | IVPB 2 g 2 g, Intravenous, | | 20 9:36 | | mL/hr | | | Administer over 30 Minutes, ONCE, | | AM PST | | | | | 01/05/20 at 1000, For 1 dose, | | | | | | | Keep in refrigerator., | | | | | | | Indications: Surgical Prophylaxis | | | | | | + +---------+ +-----+-------+---+ + +---+ | | | + +---+ | dextrose 10% (D10W) infusion | | | at 50 mL/hr, Intravenous, | | | CONTINUOUS PRN, hypoglycemia, | | | Starting 01/05/20 at 0008, | | | Start infusion if unable to | | | maintain blood glucose greater | | | than 70 mg/dL after two rounds of | | | hypoglycemia treatment. Recheck | | | blood glucose 30 minutes after | | | starting D10W then at least | | | hourly and PRN until it is | | | discontinued. Call provider to | | | discuss parameters for D10W | | | discontinuation., | | + +---+ | | | + +---+ + +-------+ +------+---+---+ | dextrose 50% injection 12.5-25 | Given | 01/07/20 | 25 g | | | | g 12.5-25 g, Intravenous, PRN, | | 20 5:05 | | | | | Low Blood Sugar, Starting Fri | | PM PST | | | | | 01/05/20 at 0008, For blood | | | | | | | glucose 50-69 mg/dl - give 12.5 g | | | | | | | For blood glucose less than 50 | | | | | | | mg/dl - give 25 g, | | | | | | + +-------+ +------+---+---+ +---+---+ | | | +---+---+ + +-------+ +---------+---+---+ | epoetin harry-epbx (RETACRIT) | Given | 01/05/20 | 10,000 | | | | 10,000 units/mL injection 10,000 | | 20 2:28 | Units | | | | Units 10,000 Units, Intravenous, | | PM PST | | | | | DIALYSIS - ONCE, 01/05/20 at | | | | | | | 1315, For 1 dose, Keep in | | | | | | | refrigerator. Do not shake., | | | | | | | ESRD-related (i.e. dialysis) | | | | | | | indication? Yes, Dialysis | | | | | | + +-------+ +---------+---+---+ +---+---+ | | | +---+---+ + +-------+ +---------+---+---------+ | epoetin harry-epbx (RETACRIT) | Given | 01/06/20 | 10,000 | | Central | | 10,000 units/mL injection 10,000 | | 20 10:37 | Units | | | | Units 10,000 Units, Intravenous, | | AM PST | | | | | DIALYSIS - ONCE, 01/06/20 at | | | | | | | 0845, For 1 dose, Keep in | | | | | | | refrigerator. Do not shake., | | | | | | | ESRD-related (i.e. dialysis) | | | | | | | indication? Yes, Dialysis | | | | | | + +-------+ +---------+---+---------+ +---+---+ | | | +---+---+ + +-------+ +---------+---+---+ | epoetin harry-epbx (RETACRIT) | Given | 01/08/20 | 10,000 | | | | 10,000 units/mL injection 10,000 | | 20 7:55 | Units | | | | Units 10,000 Units, Intravenous, | | AM PST | | | | | DIALYSIS - ONCE, 01/08/20 at | | | | | | | 0715, For 1 dose, Keep in | | | | | | | refrigerator. Do not shake., | | | | | | | ESRD-related (i.e. dialysis) | | | | | | | indication? Yes, Dialysis | | | | | | + +-------+ +---------+---+---+ +---+---+ | | | +---+---+ + +-------+ +---------+---+---------+ | epoetin harry-epbx (RETACRIT) | Given | 01/10/20 | 10,000 | | Central | | 10,000 units/mL injection 10,000 | | 20 8:30 | Units | | | | Units 10,000 Units, Intravenous, | | AM PST | | | | | DIALYSIS - ONCE, 01/10/20 at | | | | | | | 0700, For 1 dose, Keep in | | | | | | | refrigerator. Do not shake., | | | | | | | ESRD-related (i.e. dialysis) | | | | | | | indication? Yes, Dialysis | | | | | | + +-------+ +---------+---+---------+ +---+---+ | | | +---+---+ + +-------+ +--------+---+---+ | fentaNYL (PF) injection | Given | 01/05/20 | 50 mcg | | | | Intravenous, PRN, Starting Wed | | 20 9:36 | | | | | 01/05/20 at 0936 | | AM PST | | | | + +-------+ +--------+---+---+ +---+---+ | | | +---+---+ + +---------+ +--------+-------+---+ | ferric gluconate (FERRLECIT) | New Bag | 01/08/20 | 125 mg | 110 | | | 125 mg in sodium chloride 0.9% | | 20 11:48 | | mL/hr | | | 100 mL IVPB 125 mg, Intravenous, | | AM PST | | | | | Administer over 1 Hours, DAILY, | | | | | | | First dose on Wed01/05/20 at | | | | | | | 0900, For 4 doses | | | | | | + +---------+ +--------+-------+---+ +---------+ +--------+-------+--------+ | New Bag | 01/07/20 | 125 mg | 110 | Right | | | 20 12:19 | | mL/hr | Arm | | | PM PST | | | | +---------+ +--------+-------+--------+ | New Bag | 01/06/20 | 125 mg | 110 | | | | 20 12:06 | | mL/hr | | | | PM PST | | | | +---------+ +--------+-------+--------+ +---+---+ | | | +---+---+ + +-------+ +--------+---+-------+ | heparin 1,000 units/mL | Given | 01/05/20 | 3,400 | | Port | | injection 3,400 Units 3,400 | | 20 2:40 | Units | | | | Units, Intracatheter, ONCE, Fri | | PM PST | | | | | 01/05/20 at 1315, For 1 dose, | | | | | | | Instill in catheter, after each | | | | | | | dialysis. Dispense quantity | | | | | | | sufficient to fill both lumens of | | | | | | | catheter., Treatment date(s): | | | | | | | 01/05/2020, Dialysis | | | | | | + +-------+ +--------+---+-------+ +---+---+ | | | +---+---+ + +-------+ +--------+---+-------+ | heparin 1,000 units/mL | Given | 01/10/20 | 3,400 | | Port | | injection 3,400 Units 3,400 | | 20 10:22 | Units | | | | Units, Intracatheter, ONCE, Wed | | AM PST | | | | | 01/10/20 at 0630, For 1 dose, | | | | | | | Instill in catheter, after each | | | | | | | dialysis. Dispense quantity | | | | | | | sufficient to fill both lumens of | | | | | | | catheter., Treatment date(s): | | | | | | | 01/10/2020, Dialysis | | | | | | + +-------+ +--------+---+-------+ +---+---+ | | | +---+---+ + +-------+ +--------+---+-------+ | heparin 1,000 units/mL | Given | 01/06/20 | 4,000 | | Port | | injection 4,000 Units 4,000 | | 20 11:25 | Units | | | | Units, Intracatheter, ONCE, Sat | | AM PST | | | | | 01/06/20 at 0845, For 1 dose, | | | | | | | Instill in catheter, after each | | | | | | | dialysis. Dispense quantity | | | | | | | sufficient to fill both lumens of | | | | | | | catheter., Treatment date(s): | | | | | | | 01/06/2020, Dialysis | | | | | | + +-------+ +--------+---+-------+ +---+---+ | | | +---+---+ + +-------+ +--------+---+---+ | heparin 1,000 units/mL | Given | 01/08/20 | 4,000 | | | | injection 4,000 Units 4,000 | | 20 10:25 | Units | | | | Units, Intracatheter, ONCE, Mon | | AM PST | | | | | 01/08/20 at 0715, For 1 dose, | | | | | | | Instill in catheter, after each | | | | | | | dialysis. Dispense quantity | | | | | | | sufficient to fill both lumens of | | | | | | | catheter., Treatment date(s): | | | | | | | 01/08/2020, Dialysis | | | | | | + +-------+ +--------+---+---+ +---+---+ | | | +---+---+ + +-------+ +--------+---+---+ | heparin 1,000 units/mL | Given | 01/05/20 | 3,800 | | | | injection Intravenous, PRN, | | 20 9:40 | Units | | | | Starting Wed01/05/20 at 0940 | | AM PST | | | | + +-------+ +--------+---+---+ +---+---+ | | | +---+---+ + +-------+ +--------+---+ + | heparin 5,000 units/mL | Given | 01/10/20 | 5,000 | | Abdomen- | | injection 5,000 Units 5,000 | | 20 10:40 | Units | | LLQ | | Units, Subcutaneous, EVERY 12 | | AM PST | | | | | HOURS (2 times per day), First | | | | | | | dose on Wed01/05/20 at 0900 | | | | | | + +-------+ +--------+---+ + +-------+ +--------+---+ + | Given | 01/09/20 | 5,000 | | Abdomen- | | | 20 10:04 | Units | | LLQ | | | PM PST | | | | +-------+ +--------+---+ + | Given | 01/09/20 | 5,000 | | Abdomen- | | | 20 7:58 | Units | | LLQ | | | AM PST | | | | +-------+ +--------+---+ + +---+---+ | | | +---+---+ + +-------+ +---------+---+ + | influenza quadrivalent | Given | 01/08/20 | 0.5 mLs | | Deltoid- | | (FLUZONE, FLUARIX, AFLURIA | | 20 10:43 | | | Right | | QUADRIVALENT) vaccine injection | | AM PST | | | | | (syringe) 0.5 mL 0.5 mL, | | | | | | | Intramuscular, ONE TIME VACCINE, | | | | | | | 01/05/20 at 1000, For 1 dose, | | | | | | | Give patient education | | | | | | | informationRyan Jett prior to use., | | | | | | | | | | | | | + +-------+ +---------+---+ + +---+---+ | | | +---+---+ + +-------+ + +---+ + | insulin glargine (LANTUS | Given | 01/10/20 | 14 Units | | Abdomen- | | SOLOSTAR) injection (pen) | | 20 10:40 | | | LLQ | | Units 14 Units, Subcutaneous, | | AM PST | | | | | DAILY, First dose (after last | | | | | | | modification) on Wed01/10/20 at | | | | | | | 0900, For subcutaneous use only. | | | | | | | Basal (long acting) insulin. | | | | | | | Formulary substitution for mixed | | | | | | | insulin (70/30)., If NPO: | | | | | | | Decrease dose, by: 50% | | | | | | + +-------+ + +---+ + +---+---+ | | | +---+---+ + +-------+ + +---+ + | insulin glargine (LANTUS | Given | 01/09/20 | 16 Units | | Abdomen- | | SOLOSTAR) injection (pen) | | 20 7:59 | | | RLQ | | Units 16 Units, Subcutaneous, | | AM PST | | | | | DAILY, First dose on Wed01/05/20 | | | | | | | at 0900, For subcutaneous use | | | | | | | only. Basal (long acting) | | | | | | | insulin. Formulary substitution | | | | | | | for mixed insulin (70/30)., If | | | | | | | NPO: Decrease dose, by: 50% | | | | | | + +-------+ + +---+ + +-------+ + +---+ + | Given | 01/08/20 | 16 Units | | Abdomen- | | | 20 10:42 | | | LLQ | | | AM PST | | | | +-------+ + +---+ + | Given | 01/07/20 | 16 Units | | Abdomen- | | | 20 9:33 | | | RUQ | | | AM PST | | | | +-------+ + +---+ + +---+---+ | | | +---+---+ + +-------+ +---------+---+ + | insulin lispro (humaLOG) | Given | 01/05/20 | 1 Units | | Abdomen- | | injection (vial) 0-6 Units 0-6 | | 20 7:51 | | | LLQ | | Units, Subcutaneous, 4 TIMES | | AM PST | | | | | DAILY WITH MEALS & NIGHTLY, First | | | | | | | dose on Wed01/05/20 at 0800, | | | | | | | CORRECTION SCALE: Blood Glucose | | | | | | | (BG) < 150: None BG | | | | | | | 150-200: DAY: 1 units. NIGHT: 0 | | | | | | | units BG 201-250: DAY: 2 | | | | | | | units. NIGHT: 1 units BG | | | | | | | 251-300: DAY: 3 units. NIGHT: 2 | | | | | | | units BG 301-350: DAY: 4 units. | | | | | | | NIGHT: 3 units BG 351-400: | | | | | | | DAY: 5 units. NIGHT: 4 units | | | | | | | BG > 400 : DAY: 6 units. | | | | | | | NIGHT: 5 units | | | | | | | AND CALL PROVIDER Use DAY | | | | | | | DOSE for doses scheduled: | | | | | | | AC, NPO, Daytime [id number] Use | | | | | | | NIGHT DOSE for doses scheduled: | | | | | | | HS, 3AM, Nighttime [id number] | | | | | | | If the BG is not checked before | | | | | | | the patient starts eating, do not | | | | | | | give correction insulin. If HS | | | | | | | insulin given, check blood | | | | | | | glucose at 3AM. Only for use with | | | | | | | U-100 insulin syringe., | | | | | | + +-------+ +---------+---+ + +---+---+ | | | +---+---+ + +-------+ +---------+---+ + | insulin lispro (humaLOG) | Given | 01/10/20 | 5 Units | | Arm-Righ | | injection (vial) 5 Units 5 | | 20 12:29 | | | t Upper | | Units, Subcutaneous, 3 TIMES | | PM PST | | | | | DAILY WITH MEALS, First dose on | | | | | | | 01/05/20 at 0800, Hold if not | | | | | | | eating. Only for use with U-100 | | | | | | | insulin syringe., | | | | | | + +-------+ +---------+---+ + +-------+ +---------+---+ + | Given | 01/09/20 | 5 Units | | Arm-Righ | | | 20 12:34 | | | t Upper | | | PM PST | | | | +-------+ +---------+---+ + | Given | 01/09/20 | 5 Units | | Arm-Righ | | | 20 7:59 | | | t Upper | | | AM PST | | | | +-------+ +---------+---+ + +---+---+ | | | +---+---+ + +-------+ +--------+---+---+ | lidocaine 1% injection PRN, | Given | 01/05/20 | 10 mLs | | | | Starting 01/05/20 at 0936 | | 20 9:36 | | | | | | | AM PST | | | | + +-------+ +--------+---+---+ +---+---+ | | | +---+---+ + +-------+ +------+---+---+ | loperamide (IMODIUM) capsule 2 | Given | 01/08/20 | 2 mg | | | | mg 2 mg, Oral, EVERY 3 HOURS | | 20 5:44 | | | | | PRN, Diarrhea, Starting Sat | | AM PST | | | | | 01/06/20 at 2249 | | | | | | + +-------+ +------+---+---+ +-------+ +------+---+---+ | Given | 01/07/20 | 2 mg | | | | | 20 2:13 | | | | | | PM PST | | | | +-------+ +------+---+---+ | Given | 01/07/20 | 2 mg | | | | | 20 3:44 | | | | | | AM PST | | | | +-------+ +------+---+---+ +---+---+ | | | +---+---+ + +-------+ +-------+---+---+ | metoprolol succinate | Given | 01/10/20 | 50 mg | | | | (TOPROL-XL) ER tablet 50 mg 50 | | 20 10:40 | | | | | mg, Oral, DAILY, First dose on | | AM PST | | | | | 01/05/20 at 0900, Tablet may | | | | | | | be cut where scored but do not | | | | | | | crush., | | | | | | + +-------+ +-------+---+---+ +-------+ +-------+---+---+ | Given | 01/09/20 | 50 mg | | | | | 20 7:58 | | | | | | AM PST | | | | +-------+ +-------+---+---+ | Given | 01/08/20 | 50 mg | | | | | 20 10:43 | | | | | | AM PST | | | | +-------+ +-------+---+---+ +---+---+ | | | +---+---+ + +-------+ +------+---+---+ | midazolam (VERSED) 1 mg/mL | Given | 01/05/20 | 1 mg | | | | injection Intravenous, PRN, | | 20 9:35 | | | | | Starting Wed01/05/20 at 0935 | | AM PST | | | | + +-------+ +------+---+---+ +---+---+ | | | +---+---+ + +-------+ +------+---+---+ | ondansetron (ZOFRAN) injection | Given | 01/09/20 | 4 mg | | | | 4 mg 4 mg, Intravenous, EVERY 6 | | 20 4:31 | | | | | HOURS PRN, Nausea, Vomiting, | | PM PST | | | | | Starting 01/05/20 at 0008, | | | | | | | First line agent, | | | | | | + +-------+ +------+---+---+ +-------+ +------+---+---+ | Given | 01/07/20 | 4 mg | | | | | 20 2:10 | | | | | | PM PST | | | | +-------+ +------+---+---+ | Given | 01/06/20 | 4 mg | | | | | 20 8:40 | | | | | | PM PST | | | | +-------+ +------+---+---+ +---+---+ | | | +---+---+ + +-------+ +------+---+---+ | ondansetron (ZOFRAN) injection | Given | 01/06/20 | 4 mg | | | | 4 mg 4 mg, Intravenous, EVERY 6 | | 20 1:11 | | | | | HOURS PRN, Nausea, Vomiting, | | PM PST | | | | | Starting 01/05/20 at 1651, | | | | | | | First line agent Use PO option | | | | | | | unless NPO status or unable to | | | | | | | tolerate., Post-op/Phase II | | | | | | + +-------+ +------+---+---+ +---+---+ | | | +---+---+ + +-------+ +--------+---+---+ | sodium bicarbonate tablet 650 | Given | 01/10/20 | 650 mg | | | | mg 650 mg, Oral, 3 TIMES DAILY, | | 20 10:40 | | | | | First dose on Wed01/05/20 at 0045 | | AM PST | | | | + +-------+ +--------+---+---+ +-------+ +--------+---+---+ | Given | 01/09/20 | 650 mg | | | | | 20 10:04 | | | | | | PM PST | | | | +-------+ +--------+---+---+ | Given | 01/09/20 | 650 mg | | | | | 20 2:09 | | | | | | PM PST | | | | +-------+ +--------+---+---+ + +---+ | | | + +---+ | sodium chloride 0.9% (NS) bolus | | | 100 mL 100 mL, Intravenous, | | | Administer over 15 Minutes, | | | DIALYSIS - PRN, Hypotension, | | | Starting Wed01/05/20 at 1243, | | | Treatment date(s): 01/05/2020, For | | | BP less than 100 mm Hg. Give | | | 100 mL bolus up to 1000 mL. | | | DIALYSIS USE ONLY - DISCONTINUE | | | AFTER DIALYSIS THERAPY IS | | | COMPLETE, | | + +---+ | | | + +---+ | sodium chloride 0.9% (NS) bolus | | | 100 mL 100 mL, Intravenous, | | | Administer over 15 Minutes, | | | DIALYSIS - PRN, Hypotension, | | | Starting 01/08/20 at 0649, | | | Treatment date(s): 01/08/2020, For | | | BP less than 100 mm Hg. Give 100 | | | mL bolus up to 1000 mL. | | | DIALYSIS USE ONLY - DISCONTINUE | | | AFTER DIALYSIS THERAPY IS | | | COMPLETE, Dialysis | | + +---+ | | | + +---+ + +---------+ +--------+ +---+ | sodium chloride 0.9% (NS) | New Bag | 01/09/20 | 1,000 | 50 mL/hr | | | infusion at 50 mL/hr, | | 20 8:27 | mLs | | | | Intravenous, CONTINUOUS, Starting | | PM PST | | | | | 01/05/20 at 1515 | | | | | | + +---------+ +--------+ +---+ +---------+ +---+ +---+ | New Bag | 01/09/20 | | 50 mL/hr | | | | 20 12:38 | | | | | | AM PST | | | | +---------+ +---+ +---+ | New Bag | 01/08/20 | | 50 mL/hr | | | | 20 5:46 | | | | | | AM PST | | | | +---------+ +---+ +---+ +---+---+ | | | +---+---+ documented in this encounter Additional Health Concerns + + + + + | Infection | Onset Date | Last Indicated | Resolved Time | + + + + + | Rule out C. | 01/06/2020 | 01/06/2020 | 01/09/2020 3:07 PM | | Difficile | | | PST | + + + + + | Clostridium | 01/09/2020 | 01/09/2020 | 04/08/2020 3:55 AM | | difficile | | | PDT | + + + + + documented as of this encounter
--- OUTSIDE RECORDS SUMMARY | ~2020-07-31 | XMS | Encounter Summary ---
Demographics + + + | Address | [address] | | | [place] [address] | + + + | Home Phone | | + + + | Preferred Language | Unknown | + + + | Marital Status | Single | + + + | Latter Day Affiliation | 1041 | + + + | Race | White | + + + | Ethnic Group | Not or | + + + Author + + + | Author | [facility] | | | and [place] | + + + | Organization | [facility] | | [...] Team Providers + +------+ + | Care Asbestos Worker Helper Name | Role | Phone | + [...] + + | 11/13/ | Documentati | [facility] | Garcia, | Results (11/10/19) | | 2020 | on | NEPHROLOGY [facility] | Rayne Humphrey | | | | | [address] [place] | Dance Therapist | | | | | [address] [facility] [place] | | | | | | [address] | | | | | | [phone] | | | +--------+ + + + [...] | | | | | | [place] [address] | | | | | | [phone] | | | | | | | [...] + + | Blood | + + Cotter and Lambda Light Chain Ratio (11/10/2019) + [...]
--- OUTSIDE RECORDS SUMMARY | ~2020-07-31 | XMS | Encounter Summary ---
Demographics + + + | Address | [address] | | | [place] [address] | + + + | Home Phone | | + + + | Preferred Language | Unknown | + + + | Marital Status | Single | + + + | Sikh Affiliation | 1041 | + + + | Race | White | + + + | Ethnic Group | Not or | + + + Author + + + | Author | [facility] | | | and [place] | + + + | Organization | [facility] | | [...] Team Providers + +------+ + | Care Electrotype Finisher Name | Role | Phone | + +------+ + | Yrn Buckley MD | PCP | | + +------+ + Reason for Visit + +--------+ + | Reason | Onset | Comments | | | Date | | + +--------+ + | Procedure | 03/20/ | | | | 2020 | | + +--------+ + Encounter Details +--------+ + + + + | Date | Type | Department | Care Team | Description | +--------+ + + + + | 03/20/ | Telephone | [facility] | Rupal Black, | Procedure | | 2020 | | VASCULAR SURGERY | RN | | | | | [address] | | | | | | [place] | | | | | | [address] | | | | | | [phone] | | | +--------+ + + + [...] Telephone Encounter - Rupal Black RN - 03/20/2020 4:24 PM PDTFollow up call made to patient, he is home now and doing well post procedure. He states he is aware he will be forman ving surgery with Dr Gunter next Wednesday03/29/2020. He will call back if he has any further que stion. documented i landy this encounter Plan of Treatment +--------+---------+ + + + | Date | Type | Specialty | Care Team | Description | +--------+---------+ + + + | 09/30/ | Office | Cardiology | Aditya Monzon, | | | 2019 | Visit | | MD [address] | | | | | | [place], | | | | | | [place] [address] | | | | | | [phone] | | | | | | | [...]
--- OUTSIDE RECORDS SUMMARY | ~2020-07-31 | XMS | Encounter Summary ---
Demographics + + + | Address | [address] | | | [place] [address] | + + + | Home Phone | | + + + | Preferred Language | Unknown | + + + | Marital Status | Single | + + + | Zoroastrianism Affiliation | 1041 | + + + | Race | White | + + + | Ethnic Group | Not or | + + + Author + + + | Author | [facility] | | | and [place] | + + + | Organization | [facility] | | | [...] Team Providers + +------+ + | Care Coin Purse Framer Name | Role | Phone | + [...] Tijerina, | | | | | | ESRD on | DNP [address] | | | | | | dialysis | [address] | | | | | | ([facility]) AVF | [place] | | | | | | (arterioveno | [place], [place] | | | | | | us fistula) | [address] | | | | | | ([facility]) | Phone: | | | | | | Procedures | [phone] | | | | | | IR Inj | Fax: | | | | | | Dialysis | [phone] | | | | | | Circuit | | | +--------+--------+ + + + + Reason for Visit Diagnostic/Screening (Routine) +--------+--------+ + + + + | Status | Reason | Specialty | Diagnoses / | Referred By | Referred To | | | | | Procedures | Contact | Contact | +--------+--------+ + + + + | Closed | | Radiology | Diagnoses | Cirilo Tijerina, | | | | | | ESRD on | DNP [address] | | | | | | dialysis | [address] | | | | | | ([facility]) AVF | [place] | | | | | | ([facility] | [place], [place] | | | | | | us fistula) | [address] | | | | | | ([facility]) | Phone: | | | | | | Procedures | [phone] | | | | | | IR Inj | Fax: | | | | | | Dialysis | [phone] | | | | | | Circuit | | | +--------+--------+ + + + + Encounter Details +--------+ + + + + | Date | Type | Department | Care Team | Description | +--------+ + + + + | 03/20/ | Hospital | [facility] | Cirilo Tijerina, PER | ESRD on dialysis | | 2020 | Encounter | CENTER IR INTRA OP | [address] | ([facility]); AVF | | | | [address] | [place], [place] | (arteriovenous | | | | [place], [place] | [address] | fistula) ([facility]) | | | | [address] | | | | | | [phone] | Elpidio Gunter MD | | | | | | [address] | | | | | | [place], [place] | | | | | | [address] | | | | | | [phone] | | | | | | | | +--------+ + + + [...] + + + | Blood Pressure | 147/89 | 03/20/2020 1:00 PM | | | | | PDT | | + + + + + | Pulse | 76 | 03/20/2020 1:00 PM | | | | | PDT | | + + + + + | Temperature | 36.7 C (98.1 F) | 03/20/2020 12:15 PM | | | | | PDT | | + + + + + | Respiratory Rate | 18 | 03/20/2020 1:00 PM | | | | | PDT | | + + + + + | Oxygen Saturation | 96% | 03/20/2020 1:00 PM | | | | | PDT | | + + + + + | Inhaled Oxygen | - | - | | | Concentration | | | | + + + + + | Weight | 90 kg (198 lb 6.6 | 03/20/2020 11:03 AM | | | | oz) | PDT | | + + + + + | Height | 182.9 cm (6') | 03/20/2020 11:03 AM | | | | | PDT | | + + + + + | Body Mass Index | 26.91 | 03/20/2020 11:03 AM | | | | | PDT | | + + + + + documented in this encounter Discharge Instructions Instructions Kierra Snow RN - 03/20/2020[facility]T/FISTULA/FISTULAGRAM DIS CHARGE INSTRUCTIONS Your physician has placed/revised/assessed an arteriovenous (AV) shunt/fistula in your arm for your dialysis treatments. It is very important to protect your arm to prevent cutting of f the flow of blood in your shunt. Dressing Care: ? Keep the dressings clean and dry. Do not remove the dressing unless it gets wet. Keep dr schulte on for one week and then remove and dispose. ? If your dressings get wet, remove [...] start an IV or draw blood from ? the arm with the shunt. ? DO [...] regarding your dialysis shunt, please contact your ph ysician. documented in this encounter Medications at Time [...] documented as of this encounter Progress Notes Merry Stanley RN - 03/20/2020 12:00 PM PDTD/C instructions given to pt. Dressing on lef t upper arm clean, dry, and intact. Fistula with positive thrill and bruit. Denies any pain , Notified [employer] that pt is ready to be picked up. 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 No had no iv or sedation. Kierra Jenkins RN - 03/20/2020 12:00 PM PDTAttempts made x 2 for I V start. Patient hollering in pain. Per labor economics professor RN, no IV or labs needed. Patient off to slab inspector. Kierra Snow RN 03/20/2020 11:45 AM documented in this en counter H&P Notes Kadie Sargent PA-C - 03/20/2020 12:00 PM PDTFormatting of this note might be different fr om the original. Incomplete []Hide copied text []Ford for details [facility] PREOPERATIVE HISTORY AND PHYSICAL PRIMARY CARE [...] accessing t he fistula at the dialysis center. He complains of successful dialysis only one of three ti mes. His last dialysis attempt at the AVF left him, "black and blue." He has been relying o n his RIJ tunneled catheter for dialysis. The patient reports no new pain or swelling in hi s hand however has had neuropathy since prior to his left AVF creation. The patient denies fever, wound drainage, increasing redness, pus, increasing pain, increasing swelling. His s urgical incision has healed.Hehas good thrills over the AVF site. Patient's manager willow is Dr. Rothman. The patient is a right handed person. The patient is receiving hemodialysis on Wednesday, and Wednesdayvia right upper chest tunneled catheter at [facility]. Past Medical History: Diagnosis Date CKD (chronic kidney disease) stage 4, GFR 15-29 ml/min (HCC) Convulsive disorder (HCC) DM (diabetes mellitus), type 1, uncontrolled (HCC) HTN (hypertension) Proteinuria Past Surgical History: Procedure Laterality Date APPENDECTOMY AV FISTULA INSERTION Left 01/05/2020 Procedure: INSERTION AV FISTULA; Surgeon: Elpidio Gunter MD; Location: [facility] MAIN OR OTHER SURGICAL HISTORY Left 2017 [...] arthritis. Extremities: No edema, cyanosis or clubbing. Neurological: He is alert and oriented. No muscle weakness and normal gait. VASCULAR: left: AVF with good thrill throughout however vein is palpated and feels small in diameter. There is surrounding ecchymosis. 2+radial and triphasic ulnar arteries. Fingers w ith good capillary refill and no ischemia. Right [...] his left brachiocephalic AVF for dialysis. He has a good thrill in his left A VF however it is a small vein which may be causing difficulty during access. He presents fo r left AV fistulagram with possible intervention to improve accessibility during dialysis. Benefits and risks of operation were explained to the patient and the patient agreed to proc eed. The risks of proposed treatment plan include potential bleeding, venous thrombosis, PE , arterial occlusion, access thrombosis, vessel perforation, infection, steal syndrome causi ng arm ischemia, heart attach, stroke a . The patient signed a consent for this proced ure. Electronically signed by: Kadie Sargent PA-C documented in this enc ounter Miscellaneous Notes Sedation Documentation - Maggie Jasso Technologist - 03/20/2020 12:05 PM PDTMicro she ath removed, pressure held until hemostasis, covered with tegaderm rief Op Note - Elpidio Gunter MD - 03/20/2020 12:[address] [facility] Service: Vascular Surgery Brief Op Note Pre-operative Diagnosis: ESRD and difficulty cannulating left brachiocephalic fistula Post-operative Diagnosis: same Procedure(s): Left arm fistulagram Surgeon: Elpidio Gunter MD Independent Living Advisor(s): None Anesthesia: Local anesthesia Estimated Blood Loss: Minimal Other: Contrast: 18 ml of Omnipaque 240 Indications: See pre-operative history and physical Findings: Left arm fistula was widely patent. No central stenosis seen. However, there w ere multiple large branches seen siphoning flow away from main cephalic vein. Therefore, pa tient should have branch ligation and superficialization of fistula for easier cannulation. Complications: None apparent Condition: stable See dictated operative report for full details. Elpidio Gunter MD 03/20/2020 12:09 PM edation Documentation - Maggie Jasso Technologist - 03/20/2020 11:57 AM PDTLidocaine injected, access obtai aura via micro puncture, wire inserted, images obtained, documented in this encounter Plan of Treatment +--------+---------+ + + + | Date | Type | Specialty | Care Team | Description | +--------+---------+ + + + | 09/30/ | Office | Cardiology | Aditya Monzon, | | | 2019 | Visit | | MD [address] | | | | | | [place], | | | | | | [place] [address] | | | | | | [phone] | | | | | | | | +--------+---------+ + + + documented as of this encounter Procedures + +--------+ + + + | Procedure Name | Priori | Date/Time | Associated Diagnosis | Comments | | | ty | | | | + +--------+ + + + | POC GLUCOSE (NON | Routin | 03/20/2020 | | Results for this | | ORD) | e | 12:27 PM | | procedure are in the | | | | PDT | | results section. | + +--------+ + + + | IR INJECTION | Routin | 03/20/2020 | ESRD on dialysis | Results for this | | DIALYSIS CIRCUIT | e | 10:50 AM | (HCC) AVF | procedure are in the | | | | PDT | (arteriovenous | results section. | | | | | fistula) (HCC) | | + +--------+ + + + documented in this encounter Results POC Glucose (03/20/2020 12:27 PM PDT) + + + + + + | Component | Value | Ref Range | Performed | Pathologist | | | | | At | Signature | + + + + + + | Glucose, | 212 (H)Comment: Testing | 65 - 99 mg/dL | [facility] | | | POC | performed at [facility];[address] | | LABORATORY | | | | [address];[place] | | | | | | [address] | | | | + + + + + + + + | Specimen | + + | | + + + + + + + | Performing | Address | City/State/Zipcode | Phone Number | | Organization | | | | + + + + + | [facility] | [address] | [place] [address] | [phone] | + + + + + IR Inj Dialysis Circuit (03/20/2020 10:50 AM PDT) + + | Specimen | + + | | + + + + --+ | Narrative | Performed At | + + --+ | PREOPERATIVE | [facility] | | DIAGNOSISEnd-stage renal disease, difficulty cannulating left | | | brachiocephalic fistula POSTOPERATIVE DIAGNOSISEnd-stage renal | | | disease, difficulty cannulating left brachiocephalic fistula | | | PROCEDURELeft arm fistulogram SURGEONElpidio Gunter MD ASSISTANTNone | | | ANESTHESIA: Local anesthesia ESTIMATED BLOOD LOSSMinimal. CONTRAST | | | USED18 mL of Omnipaque 240 INDICATIONSPatient is a pleasant | | | 49-year-old male who has a left upper extremity brachiocephalic | | | fistula which has been having issues with difficult cannulation. | | | FINDINGSLeft arm fistula was widely patent. No central stenosis | | | seen. However, there was multiple large branches seen siphoning flow | | | away from main cephalic vein. Therefore, patient should have branch | | | ligation and superficialization of fistula for easier cannulation. | | | DESCRIPTION OF PROCEDUREThe patient was properly identified and | | | brought to the catheterization lab. The patient was placed supine on | | | the catheterization lab table and the patient was given moderate | | | sedation. The patient's left arm was then prepped and draped in the | | | usual sterile fashion. Local anesthetic was then given near the | | | antecubital fossa and the distal left arm cephalic vein was accessed | | | using a micropuncture needle. A micropuncture sheath was then | | | inserted over a wire and a fistulogram was then performed. The central | | | veins were widely patent. Therefore a pursestring suture of 3-0 | | | Prolene was then placed around the sheath and the sheath was removed | | | and hemostasis was achieved. At the end of the case, sponge, needle | | | and instrument counts were correct x2. Sterile dressing was then | | | applied. The patient was taken to observation unit for further | | | monitoring. IMPRESSION1. Widely patent left brachiocephalic fistula | | | with multiple large branches siphoning flow away from main cephalic | | | vein.2. Recommend branch ligation and superficialization of fistula | | | for easier cannulation. | | |FINDINGS | | |Left arm fistula was widely patent. No central stenosis seen. However, | | |there was multiple large branches seen siphoning flow away from main | | |cephalic vein. Therefore, patient should have branch ligation and | | |superficialization of fistula for easier cannulation. | | | | | |DESCRIPTION OF PROCEDURE | | |The patient was properly identified and brought to the catheterization | | |lab. The patient was placed supine on the catheterization lab table and | | |the patient was given moderate sedation. The patient's left arm was then | | |prepped and draped in the usual sterile fashion. Local anesthetic was then | | |given near the antecubital fossa and the distal left arm cephalic vein was | | |accessed using a micropuncture needle. A micropuncture sheath was then | | |inserted over a wire and a fistulogram was then performed. The central | | |veins were widely patent. Therefore a pursestring suture of 3-0 Prolene | | |was then placed around the sheath and the sheath was removed and | | |hemostasis was achieved. At the end of the case, sponge, needle and | | |instrument counts were correct x2. Sterile dressing was then applied. The | | |patient was taken to observation unit for further monitoring. | | | | | |IMPRESSION | | |1. Widely patent left brachiocephalic fistula with multiple large | | |branches siphoning flow away from main cephalic vein. | | |2. Recommend branch ligation and superficialization of fistula for easier | | |cannulation. | | | | | | | | + + --+ + +---------+ + + | Performing | Address | City/State/Zipcode | Phone Number | | Organization | | | | + +---------+ + + | [facility] | | | | + +---------+ + + documented in this encounter Visit Diagnoses + + | Diagnosis | + + | ESRD on dialysis ([facility]) End stage renal disease | + + | AVF (arteriovenous fistula) ([facility]) Arteriovenous fistula, acquired | + + documented in this encounter Administered Medications + +--------+ +--------+------+------+ | Medication Order | MAR | Action | Dose | Rate | Site | | | Action | Date | | | | + +--------+ +--------+------+------+ | iohexol (OMNIPAQUE 240) 240 | Given | 03/20/20 | 18 mLs | | | | mg/mL injection Intravenous, | | 20 12:05 | | | | | PRN, Starting 03/20/20 at 1205 | | PM PDT | | | | + +--------+ +--------+------+------+ +---+---+ | | | +---+---+ + +-------+ +-------+---+---+ | lidocaine 1% injection PRN, | Given | 03/20/20 | 5 mLs | | | | Starting 03/20/20 at 1157 | | 20 11:57 | | | | | | | AM PDT | | | | + +-------+ +-------+---+---+ +---+---+ | | | +---+---+ documented in [...]
--- OUTSIDE RECORDS SUMMARY | ~2020-07-31 | XMS | Encounter Summary ---
Demographics + + + | Address | [address] | | | [place] [address] | + + + | Home Phone [...] + | Author | [facility] | | | and [place] | + + + | Organization | [facility] | | | and [...] Providers + +------+ + | Care Clinical Staff Pharmacist Name | Role | Phone | + [...] + + | 11/13/ | Telephone | [facility] | Eros Rothman MD | Abnormal Lab | | 2020 | | [facility] | [address] [place] | | | | | [address] [place] | [address] [place], [place] | | | | | [address] [place], [place] | [id number] | | | | | [address] | | | | | | [phone] | | | +--------+ + + + [...] 8:38 PM PSTI received 2 calls from [facility] ED physician at [facility]. Pt with infrequent nausea x1 vomiting. None [...] | | | | | | [place] [address] | | | | | | [phone] | | | | | | | | +--------+---------+ + + + documented as of this encounter Visit Diagnoses Not on filedocumented in this encounter"
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
--- OUTSIDE RECORDS SUMMARY | ~2020-07-31 | XMS | Encounter Summary ---
Demographics + + + | Address | [address] | | | [place] [address] | + + + | Home Phone | | + + + | Preferred Language | Unknown | + + + | Marital Status | Single | + + + | Druze Affiliation | 1041 | + + + | Race | White | + + + | Ethnic Group | Not or | + + + Author + + + | Author | [facility] | | | and [place] | + + + | Organization | [facility] | | | [...] Team Providers + +------+ + | Care Two Way Radio Technician Name | Role | Phone | [...] + + | 01/09/ | Telephone | [facility] | Rupal Black, | Follow-up | | 2020 | | VASCULAR SURGERY | RN | | | | | [address] | | | | | | [place] | | | | | | [address] | | | | | | [phone] | | | +--------+ + + + [...] | | | | | | [place] [address] | | | | | | [phone] | | | | | | | [...]
--- OUTSIDE RECORDS SUMMARY | ~2020-07-31 | XMS | Encounter Summary ---
Demographics + + + | Address | [address] | | | [place] [address] | + + + | Home Phone | | + + + | Preferred Language | Unknown | + + + | Marital Status | Single | + + + | Taoist Affiliation | 1041 | + + + | Race | White | + + + | Ethnic Group | Not or | + + + Author + + + | Author | [facility] | | | and [place] | + + + | Organization | [facility] | | | [...] Team Providers + +------+ + | Care Production Packager Name | Role | Phone | + +------+ + | Yrn Buckley MD | PCP | | + +------+ + Reason for Visit +--------+ + | Reason | Comments | +--------+ + | Other | IV jana order sent to Carlos GARVEY confirmation received. | | | 12/26 | +--------+ + Encounter Details +--------+ + + + + | Date | Type | Department | Care Team | Description | +--------+ + + + + | 12/27/ | Documentati | [facility] | Garcia, | Other (IV ferpriscaeme | | 2020 | on | NEPHROLOGY [place] | Rayne Humphrey | order sent to | | | | [address] | Residential Specialist | Carlos GARVEY | | | | [address] [facility] [place] | | confirmation | | | | [phone] | | received. 12/26) | | | | [phone] | | | +--------+ + + + [...] | | | | | | [place] [address] | | | | | | [phone] | | | | | | | | +--------+---------+ + + + documented as of this encounter Visit Diagnoses Not on filedocumented in this encounter"
--- OUTSIDE RECORDS SUMMARY | ~2020-07-31 | XMS | Encounter Summary ---
Demographics + + + | Address | [address] | | | [place] [address] | + + + | Home Phone [...] Author + + + | Author | [facility] | | | and [place] | + + + | Organization | [facility] | | | [...] Team Providers + +------+ + | Care Contract Agent Name | Role | Phone | + +------+ + | Yrn Buckley MD | PCP | | + +------+ + Reason for Visit + + + | Reason | Comments | + + + | Screening For | | | Communicable Disease | | + + + Encounter Details +--------+ + + + + | Date | Type | Department | Care Team | Description | +--------+ + + + + | 03/27/ | Clinical | [facility] | Seferino Hilario PA | Exposure to | | 2019 | Support | [facility] | [address] | SARS-associated | | | | [address] [place] | [address], | coronavirus (Primary | | | | [address] [place], [place] | [place] [address] | Dx) | | | | [address] | [phone] | | | | | [phone] | | | +--------+ + + + [...] + + + | Blood Pressure | - | - | | + + + + + | Pulse | 78 | 03/27/2020 2:03 PM | | | | | PDT | | + + + + + | Temperature | 36.4 C (97.6 F) | 03/27/2020 2:03 PM | | | | | PDT | | + + + + + | Respiratory Rate | - | - | | + + + + + | Oxygen Saturation | 98% | 03/27/2020 2:03 PM | | | | | PDT [...] + documented in this encounter Progress Notes Jerome Vaughn, Automation Sales Manager - 03/27/2020 2:30 PM PDTPatient presents to the clin ic today for a COVID-19 clearance test for surgery. Patient collected their own specimen whi le being observed and instructed by clinic staff member with both verbal and written instruc tions. Patient was also given a ID NOW Test Fact Sheet. Patient was given results in person. Results given in person are given with a result specific discharge sheet. Negative Patients: Advised to self-quarantine until surgery. Postive Patients: Advised to contact their Surgeon's office for further instructions. doc umented in this encounter Plan of Treatment +--------+---------+ + + + | Date | Type | Specialty | Care Team | Description | +--------+---------+ + + + | 09/30/ | Office | Cardiology | Aditya Monzon, | | 2019 | Visit | | MD [address] | | | | | | [place], | | | | | | [place] [address] | | | | | | [phone] | | | | | | | | +--------+---------+ + + + documented as of this encounter Procedures + +--------+ + + + | Procedure Name | Priori | Date/Time | Associated Diagnosis | Comments | | | ty | | | | + +--------+ + + + | POC CORONAVIRUS | Routin | 03/27/2020 | Exposure to | Results for this | | (COVID-19) NAAT | e | 2:04 PM | SARS-associated | procedure are in the | | | | PDT | coronavirus | results section. | + +--------+ + + + documented in this encounter Results POC Coronavirus (COVID-19) NAAT (03/27/2020 2:04 PM PDT) + + + + + + | Component | Value | Ref Range | Performed | Pathologist | | | | | At | Signature | + + + + + + | POC SOURCE | Nares | | | | + + + + + + | SARS | Negative | Negative | | | | coronavirus | | | | | | 2 RNA | | | | | | (POC) | | | | | + + + + + + | Internal QC | Acceptable | Acceptable | | | + + + + + + + + | Specimen | + + | Tissue | + + + + + | Narrative | Performed At | + + + | SARS-CoV-2, RNA (COVID-19) EUA This assay has been cleared for | | | use under an FDA Emergency Use Authorization. This test is used for | | | clinical purposes. It should not be regarded as investigational or for | | | research. This laboratory is certified under the Clinical Laboratory | | | Improvement Amendments (CLIA) as qualified to perform high and | | | moderate complexity testing. Other authorized testing locations | | | include patient care settings using the ID Now Instrument. This | | | test has been validated in accordance with the FDA's Guidance Document | | | "Policy for Diagnostics Testing in Laboratories Certified to Perform | | | High and Moderate Complexity Testing and patient care testing areas | | | where ID NOW is being used, under CLIA prior to Emergency Use | | | Authorization for Coronavirus Disease-2019 during the Public Health | | | Emergency" issued on January 22, 2020. FDA independent review of this | | | validation is pending. This test is only authorized for the duration | | | of time the declaration that circumstances exist justifying the | | | authorization of the emergency use of in vitro diagnostic tests for | | | detection of SARS-CoV-2 virus and/or diagnosis of COVID-19 infection | | | under section 564(b)(1) of the Act, 21 U.S.C. 360bbb-3(b)(1), unless | | | the authorization is terminated or revoked sooner. | | + + + documented in this encounter Visit Diagnoses + + | Diagnosis | + + | Exposure to SARS-associated coronavirus - Primary | + + documented in this encounter [...]
--- OUTSIDE RECORDS SUMMARY | ~2020-07-31 | XMS | Encounter Summary ---
Demographics + + + | Address | [address] | | | [place] [address] | + + + | Home Phone | | + + + | Preferred Language | Unknown | + + + | Marital Status | Single | + + + | Nondenominational Affiliation | 1041 | + + + | Race | White | + + + | Ethnic Group | Not or | + + + Author + + + | Author | [facility] | | | and [place] | + + + | Organization | [facility] | | [...] Team Providers + +------+ + | Care Insulation Board Coater Operator Name | Role | Phone | + +------+ + | Yrn Buckley MD | PCP | | + +------+ + Encounter Details +--------+ + + + + | Date | Type | Department | Care Team | Description | +--------+ + + + + | 10/09/ | Orders Only | [facility] | Eros Rothman MD | CKD (chronic kidney | | 2019 | | NEPHROLOGY [place] | [address] [place] | disease) stage 5, | | | | [address] | [address] [place], [place] | GFR less than 15 | | | | [address] [place] [address] | [address] | ml/min (HCC) | | | | [place], [place] | | (Primary Dx); | | | | [address] | | Nephrotic range | | | | [phone] | | proteinuria; Anemia | | | [...] | | | | | | [place] [address] | | | | | | [phone] | | | | | | | [...] | | | | than 15 ml/min ([facility]) | | | | | | Nephrotic [...] | | | | than 15 ml/min ([facility]) | | | | | | Nephrotic [...] | | | | than 15 ml/min ([facility]) | | | | | | Nephrotic [...] | | | | than 15 ml/min ([facility]) | | | | | | Nephrotic [...] | | | | than 15 ml/min ([facility]) | | | | | | Nephrotic [...] | | | | than 15 ml/min ([facility]) | | | | | | Nephrotic range | | | | | | proteinuria Anemia | | | | | | of chronic kidney | | | | | | failure, stage 5 | | | | | | ([facility]) | | + +---------+--------+ + + | Ferritin | Lab | Routin | CKD (chronic | Expected: | | | | e | kidney disease) | 11/09/2019, Expires: | | | | | stage 5, GFR less | 10/09/2020 | | | | | than 15 ml/min ([facility]) | | | | | | Nephrotic range | | | | | | proteinuria Anemia | | | | | | of chronic kidney | | | | | | failure, stage 5 | | | | | | ([facility]) | | + +---------+--------+ + + | Parathyroid Hormone, | Lab | Routin | CKD (chronic | Expected: | | Intact | | e | kidney disease) | 11/09/2019, Expires: | | | | | stage 5, GFR less | 10/09/2020 | | | | | than 15 ml/min ([facility]) | | | | | | Nephrotic [...] | | | | than 15 ml/min ([facility]) | | | | | | Nephrotic range | | | | | | proteinuria | | + +---------+--------+ + + | Immunofixation, | Lab | Routin | CKD (chronic | Expected: | | Serum | | e | kidney disease) | 11/09/2019, Expires: | | | | | stage 5, GFR less | 10/09/2020 | | | | | than 15 ml/min ([facility]) | | | | | | Nephrotic [...] | | | | than 15 ml/min ([facility]) | | | | | | Nephrotic range | | | | | | proteinuria | | + +---------+--------+ + + documented as of this encounter Visit Diagnoses + + | Diagnosis | + + | CKD (chronic kidney disease) stage 5, GFR less than 15 ml/min ([facility]) - Primary Chronic | | kidney disease, Stage V | + + | Nephrotic range proteinuria Proteinuria | + + | Anemia of chronic kidney failure, stage 5 ([facility]) | + + documented in this encounter"
--- OUTSIDE RECORDS SUMMARY | ~2020-07-31 | XMS | Encounter Summary ---
Demographics + + + | Address | [address] | | | [place] [address] | + + + | Home Phone [...] Author + + + | Author | [facility] | | | and [place] | + + + | Organization | [facility] | | [...] Team Providers + +------+ + | Care Igniter Assembler Name | Role | Phone | + [...] + + | 02/18/ | Telephone | [facility] | Cirilo Tijerina DNP | Follow-up (imaging ) | | 2019 | | VASCULAR SURGERY | [address] | | | | | [address] [place] | [place], [place] | | | | | [place], [place] | [address] | | | | | [address] | | | | | | [phone] | | | +--------+ + + + [...] 02/19/2020 8:56 AM PDTReturn call made, urszula aguirre with the patient. Jude states his transportation [...] transfer the call to a mikel varela exploration manager was caller made aware that if at [...] | | | | | | [place] [address] | | | | | | [phone] | | | | | | | [...]
--- OUTSIDE RECORDS SUMMARY | ~2020-07-31 | XMS | Encounter Summary ---
Demographics + + + | Address | [address] | | | [place] [address] | + + + | Home Phone [...] Author + + + | Author | [facility] | | | and [place] | + + + | Organization | [facility] | | [...] Providers + +------+ + | Care Supervisor Cooler Service Name | Role | Phone | + +------+ + | Yrn Buckley MD | PCP | | + +------+ + Encounter Details +--------+---------+ + + + | Date | Type | Department | Care Team | Description | +--------+---------+ + + + | 12/18/ | Office | [facility] | Eros Rothman MD | CKD (chronic kidney | | 2020 | Visit | NEPHROLOGY [place] | [address] [place] | disease) stage 5, | | | | [address] | [address] [place], [place] | GFR less than 15 | | | | [address] [address] | [address] | ml/min (HCC) | | | | [place], [place] | | (Primary Dx); | | | | [address] | | Essential | | | | [phone] | | hypertension; Anemia | | | | | | of chronic kidney | | | | | | failure, stage 5 | | | | | | (HCC); Metabolic | | | | | | acidosis; At high | | | | | | risk for electrolyte | | | | | | imbalance; | | | | | | Hyperphosphatemia; | | | | | | 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, with | | | | | | long-term current | | | | | | use of insulin (HCC) | +--------+---------+ + + + Social [...] + + + | Blood Pressure | 122/78 | 12/18/2019 4:57 PM | | | | | PST | | + + + + + | Pulse | 92 | 12/18/2019 4:57 PM | | | | | PST [...] + + + + | Weight | 90.1 kg (198 lb 9.6 | 12/18/2019 4:57 PM | | | | oz) | PST | | + + + + + | Height | 182.9 cm (6') | 12/18/2019 4:57 PM | | | | | PST | | + + + + + | Body Mass Index | 26.94 | 12/18/2019 4:57 PM | | | | | PST | | + + + + + documented in this encounter Patient Instructions Patient Instructions Eros Rohtman MD - 12/18/2019 4:20 PM PSTDiscussions/Recommendations : I discussed today with [...] by a low salt, low potassium, low phosphorus, and low purine diet . He will avoid all kinds of NSAIDs for analgesia. Also: I kept him off of his Lisinopril. I started him on Sodium Bicarbonate 650 mg to take three times a day. I started him on Calcium Acetate 667 mg three times a day DURING meals. I sent him for a 1 dose IV Feraheme. I sent him for a repeat RFP, CBC in 2 weeks. He will report back to me his home BP readings in 2 weeks. At that time, I will decide w hether any change to his vasoactive regimen is warranted. He will F/U with your office regularly. I will see him at the [facility] [place] a monthly basis. documented in this encounter Progress Notes Eros Rothman MD - 12/18/2019 4:20 PM PST Patient Active Problem List Diagnosis Date Noted POA Hyperphosphatemia 11/13/2019 Unknown CKD (chronic kidney disease) stage 5, GFR [...] as delineated above. He is here to F/U on his severely low GFR & associated complication s. On 02/13/2019, his sCr & eGFR were 3.03 & 22. The patient has history of hypertension since his early 's, Diabetes Mellitus since his e denise s. His BG and BP control has been [...] vomiting in the morning, but he manages meals 3 time s a day. No anorexia. No nausea, abdominal pain, diarrhea, melena, or hematochezia. No ches t pain, palpitation, dizziness, loss of consciousness, orthopnea, paroxysmal nocturnal dyspn ea, or leg edema. He has imbalance because of inability to control his feet. This made him f all a few times. No recent LOC. The [...] complications - anemia; chronic Current Outpatient Medications: amLODIPine (NORVASC) 10 MG tablet, take 1 tablet by mouth once daily, Disp: , Rfl: 0 atorvaSTATin (LIPITOR) 20 mg tablet, Take 20 mg by mouth nightly., Disp: , Rfl: hydroCHLOROthiazide 25 mg tablet, , Disp: , Rfl: insulin - MIX insulin NPH-insulin regular 70/30 (HUMULIN 70/30) 100 units/mL injection , Inject into the skin 2 (two) times daily before meals., Disp: , Rfl: metoprolol succinate (TOPROL-XL) 50 mg 24 hr tablet, Take 50 mg by mouth daily., Disp: , Rfl: *he tells me he also takes a diuretic - which he could not remember.* Physical Exam: BP 122/78 | Pulse 92 | Ht 1.829 m (6') | Wt 90.1 kg (198 lb 9.6 oz) | BMI 26.94 kg/m General appearance: Pleasant, not in acute [...] normal. Lab Results Component Value Date HGB 8.2 (A) 12/11/2019 HGB 10.9 (A) 02/10/2019 NA 136 12/11/2019 K 4.6 12/11/2019 CL 104 12/11/2019 CO2 16 (A) 12/11/2019 BUN 97 (A) 12/11/2019 CREA 11.17 (A) 12/11/2019 CALCIUM 8.3 (A) 12/11/2019 ALBUMIN 3.4 (A) 12/11/2019 EGFR 5.0 (A) 12/11/2019 PTH 74.87 (A) 02/13/2019 LABPROT 3,749.7 (A) 11/10/2019 LABPROT 6.4 11/10/2019 No results for input(s): BUN, CREA, [...] Severely low GFR vs 02/2019 BLOOD PRESSURE: Better controlled BLOOD SUGAR: Reports it better controlled ELECTROLYTES: Abnormal: -Mild hyperkalemia (severely low GFR; being on Lisinopril; not watching the potassium in his diet) is better -Mild metabolic acidosis (low GFR) -Moderate hyperphosphatemia ANEMIA: Moderate; associated with his severe CKD VITAMIN D: To be checked thru your office PARATHYROID HORMONE: Mildly up for him URIC ACID: Up PROTEINURIA: Severe: nephrotic range [...] by a low salt, low potassium, low phosphorus, and low purine diet . He will avoid all kinds of NSAIDs for analgesia. Also: I see no immediate indication to send him to ED. I see no acute indication for starting IOS DEVELOPER (he is uremic but relatively compensated; I a m hoping he will see our surgical colleagues this then gets the PD catheter in so w timothy can start PD training within the coming 2 weeks). I kept him off of his Lisinopril. I asked for the report of his early 11/2019 renal & bladder U/S SARA. He seems to be invested in his healthcare now & wants to be helped & get better. So we w ill go with the renal plan as detailed here. I started him on Sodium Bicarbonate 650 mg to take three times a day. I started him on Calcium Acetate 667 mg three times a day DURING meals. I sent him for a 1 dose IV Feraheme. I sent him for a repeat RFP, CBC in 2 weeks. He will report back to me his home BP readings in 2 weeks. At that time, I will decide w hether any change to his vasoactive regimen is warranted. He will F/U with your office regularly. I will see him [place] [facility] [place] a monthly basis. Thank you Dr Buckley for the opportunity to see this patient in F/U on an urgent basis todixon yousif. Please do not hesitate to call me at any time with questions or concerns. Truly yours, Eros Rothman MD [facility] documented in this enco unter Plan [...] | | | | | | [place] [address] | | | | | | [phone] | | | | | | | | +--------+---------+ + + + documented as of this encounter Visit Diagnoses + + | Diagnosis | + + | CKD (chronic kidney disease) stage 5, GFR less than 15 ml/min ([facility]) - Primary Chronic | | kidney disease, Stage V | + + | Essential hypertension Unspecified essential hypertension | + + | Anemia of chronic kidney failure, stage 5 (HCC) | + + | Metabolic acidosis Acidosis | + + | At high risk for electrolyte imbalance | + + | Hyperphosphatemia Disorders of phosphorus metabolism | + + | Type 2 diabetes mellitus with diabetic nephropathy, with long-term current use of | | insulin (HCC) | + + documented in this encounter"
--- OUTSIDE RECORDS SUMMARY | ~2020-07-31 | XMS | Encounter Summary ---
Demographics + + + | Address | [address] | | | [place] [address] | + + + | Home Phone | | + + + | Preferred Language | Unknown | + + + | Marital Status | Single | + + + | Oriental Orthodox Affiliation | 1041 | + + + [...] Team Providers + +------+ + | Care Motor Racer Name | Role | Phone | + [...] + + | 07/24/ | Telephone | [facility] | Eros Rothman MD | Other (Appointment | | 2019 | | NEPHROLOGY [place] | [address] [place] | reminder call) | | | | [address] [place] | [address] [facility] [place] | | | | | [address] [facility] [place] | [id number] | | | | | [address] | | | | | | [phone] | | | +--------+ + + + [...] Miscellaneous Notes Telephone Encounter - Milagro Garcia Supervisor Carpenters - 07/24/2019 4:10 PM PDTThis call is [...] | | | | | | [place] [address] | | | | | | [phone] | | | | | | | | +--------+---------+ + + + documented as of this encounter Visit Diagnoses Not on filedocumented in this encounter"
--- OUTSIDE RECORDS SUMMARY | ~2020-07-31 | XMS | Encounter Summary ---
Demographics + + + | Address | [address] | | | [place] [address] | + + + | Home Phone [...] + + + | Author | [facility] | | | and [place] | + + + | Organization | [facility] | | | [...] Team Providers + +------+ + | Care Material Reprocessing Associate Name | Role | Phone | [...] RING | | | | | | ([facility]) AVF | [place] | | | | | | (arterioveno | [place], [place] | | | | | | us fistula) | [address] | | | | | | ([facility]) | Phone: | | | | | | Procedures | [phone] | | | | | | IR Inj | Fax: | | | | | | Dialysis | [phone] | | | | | | Circuit | | | +--------+--------+ + + + + Encounter Details +--------+ + + + + | Date | Type | Department | Care Team | Description | +--------+ + + + + | 03/07/ | Orders Only | [facility] | Cirilo Tijerina, PER | ESRD on dialysis | | 2020 | | VASCULAR SURGERY | [address] | ([facility]) (Primary Dx); | | | | [address] | [place], [place] | AVF (arteriovenous | | | | [place], [place] | [address] | fistula) ([facility]) | | | | [address] | | | | | | [phone] | | | +--------+ + + + [...] [place], | | | | | | [place] [address] | | | | | | [phone] | | | | | | | [...] | + + | AVF (arteriovenous fistula) ([facility]) Arteriovenous fistula, acquired | + [...]
--- OUTSIDE RECORDS SUMMARY | ~2020-07-31 | XMS | Encounter Summary ---
Demographics + + + | Address | [address] | | | [place] [address] | + + + | Home Phone [...] Author + + + | Author | [facility] | | | and [place] | + + + | Organization | [facility] | | | [...] Providers + +------+ + | Care Fruit Tester Name | Role | Phone | + [...] + + | 01/07/ | Documentati | [facility] | Jose, | Other (Chest X ray | | 2019 | on | NEPHROLOGY YAIMA | Milagro [facility] | report 12/18/19) | | | | [address] [place] | Tourist Agent | | | | | [address] [place], [place] | | | | | | [address] | | | | | | [phone] | | | +--------+ + + + [...] | | | | | | [place] [address] | | | | | | [phone] | | | | | | | [...]
--- OUTSIDE RECORDS SUMMARY | ~2020-07-31 | XMS | Encounter Summary ---
Demographics + + + | Address | [address] | | | [place] [address] | + + + | Home Phone [...] + + + | Author | [facility] | | | and [place] | + + + | Organization | [facility] | | [...] Team Providers + +------+ + | Care Bleacher [employer]p Name | Role | Phone | + +------+ + | Yrn Buckley MD | PCP | | + +------+ + Reason for Visit +--------+--------+ + | Reason | Onset | Comments | | | Date | | +--------+--------+ + | Pre-Op | 03/19/ | | | | 2020 | | +--------+--------+ + Encounter Details +--------+ + + + + | Date | Type | Department | Care Team | Description | +--------+ + + + + | 03/19/ | Telephone | [facility] | Elpidio Gunter MD | Pre-Op | | 2020 | | CENTER CV INTRA OP | [address] | | | | | [address] | [place] | | | | | [place], [place] | [address] | | | | | [address] | [phone] | | | | | [phone] | | | +--------+ + + + [...] this encounter Miscellaneous Notes Telephone Encounter - Phoenix Stoll - 03/19/2020 2:53 PM PDTSW pt's caregiver Ramona regard ing pre op instructions. Asked all covid 19 Scheduling screening questions. All Answers were no. Caregiver- Ramona states that patient is coming in on State transportation but does not have a name. company [employer] has many contracts. will not know till patient arrives.Elec tronically signed by Phoenix Stoll at 03/19/2020 2:54 PM PDTdocumented in this encounter Plan of Treatment +--------+---------+ + + + | Date | Type | Specialty | Care Team | Description | +--------+---------+ + + + | 09/30/ | Office | Cardiology | Aditya Monzon, | | 2019 | Visit | | MD [address] | | | | | | [place], | | | | | | [place] [address] | | | | | | [phone] | | | | | | | [...]
--- OUTSIDE RECORDS SUMMARY | ~2020-07-31 | XMS | Encounter Summary ---
Demographics + + + | Address | [address] | | | [place] [address] | + + + | Home Phone | | + + + | Preferred Language | Unknown | + + + | Marital Status | Single | + + + | Catholic Affiliation | 1041 | + + [...] Team Providers + +------+ + | Care Pbx Manager Name | Role | Phone | [...] Provider Unknown | | | | | [place], [place] | [phone] | | | | | [address] | | | | | | [phone] | | | +--------+ + + + [...] | | | | | | [place] [address] | | | | | | [phone] | | | | | | | [...]
--- OUTSIDE RECORDS SUMMARY | ~2020-07-31 | XMS | Encounter Summary ---
Demographics + + + | Address | [address] | | | [place] [address] | + + + | Home Phone [...] Team Providers + +------+ + | Care Applied Computer Science Professor Name | Role | Phone [...] + + | 07/02/ | Documentati | [facility] | Jose, | Other (pre | | 2020 | on | NEPHROLOGY YAIMA | [facility] | transplant | | | | [address] [place] | Window Trimmer Apprentice | consultation notes | | | | [address] [place], [place] | | 06/25/20) | | | | [address] | | | | | | [phone] | | | +--------+ + + + [...] | | | | | | [place]MI [address] | | | | | | [phone] | | | | | | | | +--------+---------+ + + + documented as of this encounter Visit Diagnoses Not on filedocumented in this encounter"
--- OUTSIDE RECORDS SUMMARY | ~2020-07-31 | XMS | Clinical Summary ---
Demographics + + + | Address | [address] | | | [place] [address] | + + + | Home Phone | | + + + | Preferred Language | Unknown | + + + | Marital Status | Single | + + + | Church Affiliation | 1041 | + + + | Race | White | + + + | Ethnic Group | Not or | + + + Author + + + | Author | [facility] | | | and [place] | + + + | Organization | [facility] | | | [...] Team Providers + +------+ + | Care Sander Hand Name | Role | Phone | + [...] automatically from request for surgery | | [id number] | + + + + + | S/P arteriovenous (AV) fistula creation | 01/10/2020 | + + + | S/P hemodialysis catheter insertion | 01/10/2020 | + + + | NELIA (acute kidney injury) | 01/10/2020 | + + + | ESRD on hemodialysis | 01/04/2020 | + + + + + | Overview: Added automatically from request for surgery | | [id number] | + + + + + | CKD (chronic kidney disease) requiring chronic dialysis | 01/03/2020 | + + + + + | Overview: Added automatically from request for surgery | | [id number] | + + + + + | [...] + + + | Uremic encephalopathy | 01/10/20 | | | | 20 | 0 | + + + + Encounters +--------+ + + + + | Date | Type | Specialty | Care Team | Description | +--------+ + + + + | 07/02/ | Documentati | Nephrology | Jose, | Other (pre | | 2019 | on | | Rayne Humphrey | transplant | | | | | Nurse Orthopedic | consultation notes | | | | | | 06/25/20) | +--------+ + + + + | 06/19/ | Documentati | Nephrology | Jose, | Other (transplant | | 2019 | on | | Rayne Humphrey | team letter | | | | | Nurse Orthopedic | 06/12/20) | +--------+ + + + + | 05/01/ | Office | Vascular Surgery | Danie Johnston MD | ESRD on dialysis | | 2019 | Visit | | | ([facility]) (Primary Dx); | | | | | | AVF (arteriovenous | | | | | | fistula) ([facility]) | +--------+ + + + + from [...] | | | | | | [place] [address] | | | | | | [phone] | | | | | | | [...] | [employer] | MODA | [id number] | | [phone] | | Medica | | MEDICAID HMO | HEALTH | | [id number] | 1 | | id | | | MDCD | | esent | | | | | | HMO [place] | | | | | | + +--------+ +--------+ +---------+--------+ | [employer] | MODA | [id number] | 06/11/20 | [phone] | | Medica | | MEDICAID HMO [...] | Self | [birth year] | | [address] | | | jimmy/Jon | | 1970 | [phone] | [place] | | | [place] | | | 6 ([place]) | [address] | + +--------+ +--------+ + + | Jude Henley | Person | Self | [birth year] | | [address] | | | al/Fam | | 1969 | [phone] | [place], [place] | | | [place] | | | 6 (Home) | [address] | + +--------+ +--------+ + + | Jude Henley | Person | Self | [birth year] | | [address] | | | al/Fam | | 1969 | [phone] | [place], [place] | | | [place] | | | 6 ([place]) | [address] | + +--------+ +--------+ + + Advance Directives + + + + + | Type | Date Recorded | Patient | Explanation | | | | Advanced Practice Nurse | | + + + + + | Power of | | | | | Wire Taper | | | | + + + [...]
--- OUTSIDE RECORDS SUMMARY | ~2020-07-31 | XMS | Clinical Summary ---
Demographics + + + | Address | [address] | | | [place] [address] | + + + | Home Phone | | + + + | Preferred Language | Unknown | + + + | Marital Status | Single | + + + | Jewish Affiliation | Unknown | + + + [...] Team Providers + +------+ + | Care Lining Baster Name | Role | Phone | + +------+ + | Yrn Buckley MD | PCP | | + +------+ + Source Comments TUAN is fully live on both [facility] and [facility] InPatient.[facility] Allergies Not on File Medications Not on file Active Problems + + + | Problem | Noted Date | + + + | CKD (chronic kidney disease) requiring chronic dialysis | 01/11/2020 | + + + + + | Overview: Started on dialysis on 01/11/2020 | + + + + + | Essential hypertension | 10/06/2018 | + + + + + | Overview: Formatting of this note might be different from the | | original.Diagnosed in his early 40's.BP Readings from Last 3 | | Encounters: No data found for BP | |BP Readings from Last 3 Encounters: | |No data found for BP | + + + +---+ | Type 2 diabetes mellitus with ESRD (end-stage renal disease) | | | ([facility]) 2728 | | + +---+ + + | Overview: Diagnosed with DM in his early 's | | | | No results found for: A1C | + + Encounters +--------+ + + + + | Date | Type | Specialty | Care Team | Description | +--------+ + + + + | 05/27/ | Telephone | Kidney Transplant | Linda De La Paz, | Pre Transplant | | 2020 | | | RN | Workup (Intake) [...] | | 2019 | Visit | | SADDLE TREE STITCHER [address] [facility] | | | | | | [place] | | | | | | [place], [place] | | | | | | [address] | | | | | | [phone] | | | | | | | [...] | | | + +--------+ +--------+-------+---------+--------+ | BISCUIT FACTORY WORKER MEDICAID | BISCUIT FACTORY WORKER | [id number] | 05/12/20 | | | Medica | [...] | [birth year] | | | | al/Fam | | 1970 | [phone] | [place] [address] | | | aubrey | | | 1 (Home) | | + +--------+ +--------+ + +"
--- OUTSIDE RECORDS SUMMARY | ~2020-07-31 | XMS | Encounter Summary ---
Demographics + + + | Address | [address] | | | [place] [address] | + + + | Home Phone | | + + + | Preferred Language | Unknown | + + + | Marital Status | Single | + + + | Hinduism Affiliation | 1041 | + + + | Race | White | + + + | Ethnic Group | Not or | + + + Author + + + | Author | [facility] | | | and [place] | + + + | Organization | [facility] | | | and [...] Team Providers + +------+ + | Care Cosmetics Presser Name | Role | Phone | + +------+ + | Yrn Buckley MD | PCP | | + +------+ + Encounter Details +--------+ + + + + | Date | Type | Department | Care Team | Description | +--------+ + + + + | 03/12/ | Telephone | [facility] | Elpidio Gunter MD | | | 2020 | | CENTER CV INTRA OP | [address] | | | | | [address] | [place], [place] | | | | | [place], [place] | [address] | | | | | [address] | [phone] | | | | | [phone] | | | +--------+ + + + [...] | | | | | | [place] [address] | | | | | | [phone] | | | | | | | [...]
--- OUTSIDE RECORDS SUMMARY | ~2020-07-31 | XMS | Encounter Summary ---
Demographics + + + | Address | [address] | | | [place] [address] | + + + | Home Phone [...] Team Providers + +------+ + | Care Access Developer Name | Role | Phone | + +------+ + | Yrn Buckley MD | PCP | | + +------+ + Encounter Details +--------+---------+ + + + | Date | Type | Department | Care Team | Description | +--------+---------+ + + + | 11/13/ | Office | [facility] | Eros Rothman MD | CKD (chronic kidney | | 2020 | Visit | NEPHROLOGY [place] | [address] [place] | disease) stage 5, | | | | [address] | [address] [place], [place] | GFR less than 15 | | | | [address] [place] [address] | [address] | ml/min (HCC) | | | | [place], [place] | | (Primary Dx); Anemia | | | | [address] | | of chronic kidney | | | | [phone] | | failure, stage 5 | | [...] here. I see no need for acute DIESEL SERVICE TECHNICIAN at this time. I sent him for [...] intact PTH, uric acid, Urine total prot tkb-ze-fpxstimmyq ratio before he comes back in 1 [...] here. I see no need for acute DIESEL SERVICE TECHNICIAN. I sent him for a repeat RFP, CBC in 2 weeks. He will report back to me his home BP readings in 2 weeks. At that time, I will decide w hether any change to his vasoactive regimen is warranted. He will F/U with your office regularly. He will have a RFP, CBC, Iron studies, Ferritin, intact PTH, uric acid, Urine total prot pou-eh-edbhczbuol ratio before he comes back in [address]. [address] Buckley for the opportunity to see this patient in F/U on an urgent basis todixon yousif. Please do not hesitate to call me at any time with questions or concerns. Truly yours, Eros Rothman MD [facility] documented in this enco unter Plan [...] | | | | | | [place] [address] | | | | | | [phone] | | | | | | | | +--------+---------+ + + + documented as of this encounter Visit Diagnoses + + | Diagnosis | + + | CKD (chronic kidney disease) stage 5, GFR less than 15 ml/min ([facility]) - Primary Chronic | | kidney disease, Stage V | + + | Anemia of chronic kidney failure, stage 5 ([facility]) | + + | Nephrotic range proteinuria Proteinuria | + + | Metabolic acidosis Acidosis | + + | At high risk for electrolyte imbalance | + + | Essential hypertension Unspecified essential hypertension | + + | Hyperphosphatemia Disorders of phosphorus metabolism | + + documented in this encounter"
--- OUTSIDE RECORDS SUMMARY | ~2020-07-31 | XMS | Encounter Summary ---
Demographics + + + | Address | [address] | | | [place] [address] | + + + | Home Phone | | + + + | Preferred Language | Unknown | + + + | Marital Status | Single | + + + | Mu-Ism Affiliation | 1041 | + + + | Race | White | + + + | Ethnic Group | Not or | + + + Author + + + | Author | [facility] | | | and [place] | + + + | Organization | [facility] | | [...] Team Providers + +------+ + | Care Casino Floor Person Name | Role | Phone | + +------+ + | Yrn Buckley MD | PCP | | + +------+ + Reason for Visit +--------+ + | Reason | Comments | +--------+ + | Other | chart note sent to [facility] 01/01 confirmation recieved | +--------+ + Encounter Details +--------+ + + + + | Date | Type | Department | Care Team | Description | +--------+ + + + + | 01/09/ | Documentati | [facility] | Jose, | Other (chart note | | 2020 | on | NEPHROLOGY YAIMA | Rayne Humphrey | sent to [facility] | | | | [address] | Jail Keeper | 01/01 confirmation | | | | [address] [place], [place] | | recieved) | | | | [address] | | | | | | [phone] | | | +--------+ + + + [...] | | | | | | [place] [address] | | | | | | [phone] | | | | | | | [...]
--- OUTSIDE RECORDS SUMMARY | ~2020-07-31 | XMS | Encounter Summary ---
Demographics + + + | Address | [address] | | | [place] [address] | + + + | Home Phone | | + + + | Preferred Language | Unknown | + + + | Marital Status | Single | + + + | Jain Affiliation | 1041 | + + + [...] Team Providers + +------+ + | Care Commonwealth Attorney Name | Role | Phone | + [...] | | | | | | | ([facility]) | | | | | | | [...] + + | 03/29/ | Anesthesia | [facility] | Tanja Gunter, | | | 2020 | [facility] | MD [address] | | | | | [address]PER[address] | [place] [address] | | | | | [address] | [phone] | | | | | [place], [place] | | | | | | [address] | | | | | | [phone] | | | +--------+ + + + [...] +----+---+ + + | | 0 | [place] | | | | 7 | 43-degrees [...] Tiffanie Rodriguez, | | | IV | wpud-kld-cprksz catheter system; | RN | | | [...] EVALUATION Jude Henley 49 y.o. male 1970 [id number] Procedure(s) SUPERFICIALIZATION AV FISTULA (Left Arm Upper) [...] by Tanja Gunter MD 03/29/2020 8:23 AM [facility] nesthesia Procedure Notes - Tanja Gunter MD [...] EVALUATION Jude Henley 49 y.o. male 1970 [id number] Procedure(s): SUPERFICIALIZATION AV FISTULA (Left Arm Upper) [...] NOTE Jude Henley 49 y.o. male 1970 [id number] SUPERFICIALIZATION AV FISTULA (Left Arm Upper) HANDOFF [...] Epic were reviewed with the receiving team. Tanja Gunter MD 03/29/2020 8:23 AM [facility] documented in this encounter Plan of Treatment +--------+---------+ + + + | Date | Type | Specialty | Care Team | Description | +--------+---------+ + + + | 09/30/ | Office | Cardiology | Aditya Monzon, | | 2019 | Visit | | MD [address] | | | | | | [place], | | | | | | [place] [address] | | | | | | [phone] | | | | | | | [...]
--- OUTSIDE RECORDS SUMMARY | ~2020-07-31 | XMS | Encounter Summary ---
Demographics + + + | Address | [address] | | | [place] [address] | + + + | Home Phone [...] + + | Author | [facility] | | | and [place] | + + + | Organization | [facility] | | [...] Team Providers + +------+ + | Care Embroidery Assistant Name | Role | Phone | [...] + + | 12/08/ | Telephone | [facility] | Eros Rothman MD | Other (Appointment | | 2020 | | NEPHROLOGY [place] | [address] [place] | reminder call) | | | | [address] [place] | [address] [facility] [place] | | | | | [address] [facility] [place] | [id number] | | | | | [address] | | | | | | [phone] | | | +--------+ + + + [...] Miscellaneous Notes Telephone Encounter - Milagro Garcia Employee Development Specialist - 12/08/2019 2:02 PM PSTThis call is [...] | | | | | | [place] [address] | | | | | | [phone] | | | | | | | | +--------+---------+ + + + documented as of this encounter Visit Diagnoses Not on filedocumented in this encounter"
--- OUTSIDE RECORDS SUMMARY | ~2020-07-31 | XMS | Encounter Summary ---
Demographics + + + | Address | [address] | | | [place] [address] | + + + | Home Phone [...] Team Providers + +------+ + | Care Ticker Maintainer Name | Role | Phone | + [...] | | | | PHYSICAL MEDICINE | [facility] | | [facility] | [place] [address] | | | | | [address] | [place] [address] | | | | | [place], [place] | [phone] | | | | | [address] | | | | | | [phone] | | | +--------+ + + + [...] re-faxed on 07/27. Please call back at [phone] option 1. elephone Encounter - Narcisa Rader [...] over on 05/31. Call Samanta back at [phone] option 1. If this is a symptom based call, was patient offered triage? Not Applicable If this is a symptom based call and you were unable to immediately transfer the call to a p nichole tool machine set up operator was caller made aware that if [...] | | | | | | [place] [address] | | | | | | [phone] | | | | | | | | +--------+---------+ + + + documented as of this encounter Visit Diagnoses Not on filedocumented in this encounter"
--- OUTSIDE RECORDS SUMMARY | ~2020-07-31 | XMS | Encounter Summary ---
Demographics + + + | Address | [address] | | | [place] [address] | + + + | Home Phone [...] Author + + + | Author | [facility] | | | and [place] | + + + | Organization | [facility] | | | [...] Team Providers + +------+ + | Care It Project Lead Name | Role | Phone | [...] + + | 05/01/ | Office | [facility] | Danie Johnston MD | ESRD on dialysis | | 2020 | Visit | VASCULAR SURGERY | [address] | ([facility]) (Primary Dx); | | | | [address] [place] | [place] [address] | AVF (arteriovenous | | | | [place], [place] | [place] [address] | fistula) ([facility]) | | | | [address] | [phone] | | | | | [phone] | | | +--------+---------+ + + + [...] strain that is spread mainly from pers gs-lq-hhbtlt through respiratory droplets when an infected person [...] are not available, use an alcohol-based hand merchandise director with at least 60 % alcohol covering [...] and need to call 911, notify the hot mill operator that you have or think you [...] COVID-19 symptoms, residents in nursing facilities or assisted communities or home health, or those who [...] or preparing your food. ? Use hand merchandise director if soap and water are not available. [...] with soap and water or in the superintendent maintenance airports/taras. ? Call ahead before visiting your doctor. [...] local public health website. CDC: COVID-19: https://www.cdc.gov/coronavirus/2019-ncov/index.html [place] Coronavirus Advisory: https://www.[facility].org/usimmnbc-fji-mwppdxba/coron avirus-advisory Virtual Visits Available https://virtual.[facility].org/ documented in this encounter Progress Notes Alyssa Johnston PA-C - 05/01/2020 3:30 PM [facility] [address] [place] [address] Office: [phone] DATE OF VISIT: 05/01/2020 PATIENT NAME: Jude Henley : 1970; AGE: 49 y.o.; Sex:M PHONE NUMBER: ; (Work); (Cell) ; PHYSICIAN: Alyssa Johnston PA-C PRIMARY CARE / REFERRING PHYSICIAN: No ref. provider found / Yrn Buckley MD / [address] [place] / [place] [address] REASON FOR EVALUATION / CHIEF COMPLAINT: Vascular [...] | | | | | | [place] [address] | | | | | | [phone] | | | | | | | | +--------+---------+ + + + documented as of this encounter Visit Diagnoses + + | Diagnosis | + + | ESRD on dialysis ([facility]) - Primary End stage renal disease | + + | AVF (arteriovenous fistula) ([facility]) Arteriovenous fistula, acquired | + [...]
--- OUTSIDE RECORDS SUMMARY | ~2020-07-31 | XMS | Encounter Summary ---
Demographics + + + | Address | [address] | | | [place] [address] | + + + | Home Phone [...] + + | Author | [facility] | | | and [place] | + + + | Organization | [facility] | | | [...] Team Providers + +------+ + | Care Irrigation Tax Assessor Collector Name | Role | Phone | + [...] | | | | | | ([facility]) | | | | | [...] + + | 03/29/ | Surgery | [facility] | Elpidio Gunter MD | SUPERFICIALIZATION | | 2019 | [facility] | [address] | AV FISTULA | | | | [address]PER[address] | [place] | | | | | [address] | [address] | | | | | [place] | [phone] | | | | | [address] | | | | | | [phone] | | | +--------+---------+ + + + [...] shunt, please contact your ph ysician at [phone]. Arteriovenous (AV) Fistula for Dialysis An AV [...] cuts, scrapes, or blows. Date Last Reviewed: 11/08/201619990449-9689 [employer]. [address] [place] [address], [place] [address]. All righ ts reserved. This information is [...] information carefully each time. Talk to your rounding and backing machine operator regarding the use of this medicine in children. Special care may be needed. What side effects may I notice from receiving this medicine? Side effects that you should report to your doctor or health pharmacy customer care specialist as soon as p ossible: allergic reactions [...] attention (report to your doctor or health pharmacy customer care specialist if they continue or are bothersome): constipation [...] to an official disposal site. Contact the [facility] at [phone] or your [facility] government to find a site. If you [...] this medicine? Tell your doctor or health pharmacy customer care specialist if your pain does not go away, [...] went over with patikasia kee and driver retraining instructor over phone all questions answered patient sent home with prescriptions. documented in this encounter Consult Notes Alyssa Johnston PA-C - 03/28/2020 3:00 PM PDTFormatting of this note might be different f rom the original. Incomplete []Hide copied text []Hover for details [facility] PREOPERATIVE HISTORY AND PHYSICAL PRIMARY [...] thrill s over the AVF site. Patient's fruit rancher is Dr. Rothman. The patient is a right handed pe rson. The patient is receiving hemodialysis on Wednesday, and Saturdayvia right upp er chest tunneled catheter at [facility]. Past Medical History: Diagnosis Date CKD (chronic kidney disease) stage 4, GFR 15-29 ml/min (HCC) Convulsive disorder (HCC) DM (diabetes mellitus), type 1, uncontrolled (HCC) HTN (hypertension) Proteinuria Past Surgical History: Procedure Laterality Date APPENDECTOMY AV FISTULA INSERTION Left 01/05/2020 Procedure: INSERTION AV FISTULA; Surgeon: Elpidio Gunter MD; [facility] OTHER SURGICAL HISTORY Left 2017 [...] Gunter MD - 03/29/2020 8:11 AM PDT [facility] Service: Vascular Surgery Operative Note Pre-operative Diagnosis: ESRD and fistula too deep to access Post-operative Diagnosis: same Procedure(s): Superficialization of left brachiocephalic fistula Surgeon: Elpidio Gunter MD Copying Machine Mechanic(s): MARCELO Urena (MARCELO was required to help [...] then applied. Patient was then taken to [facility] PACU in stable condition. There were no [...] | | | | | | [place] [address] | | | | | | [phone] | | | | | | | [...] | | | POC | performed at [facility];[address] | | LABORATORY | | | | [address];[place], [place] | | | | | | [address] | | | | + + + + + + + + | Specimen | + + | | + + + + + + + | Performing | Address | City/State/Zipcode | Phone Number | | Organization | | | | + + + + + | [facility] | [address] | [place] [address] | [phone] | + + + + + CBC [...] | | | Absolute | performed at [facility];[address] | [address] | LABORATORY | | | | [address];[place], [place] | | | | | | [address] | | | | + + + + + + + + | Specimen | + + | Blood | + + + + + + + | Performing | Address | City/State/Zipcode | Phone Number | | Organization | | | | + + + + + | [facility] | [address] | [place] [address] | [phone] | + + + + + Basic [...] | | | | | performed at [facility];[address] | | | | | | [address];[place], [place] | | | | | | [address] | | | | + + + + + + + + | Specimen | + + | Blood | + + + + + + + | Performing | Address | City/State/Zipcode | Phone Number | | Organization | | | | + + + + + | [facility] | [address] | [place] [address] | [phone] | + + + + + POC [...] | | | POC | performed at [facility];[address] | | LABORATORY | | | | [address];[place], [place] | | | | | | [address] | | | | + + + + + + + + | Specimen | + + | | + + + + + + + | Performing | Address | City/State/Zipcode | Phone Number | | Organization | | | | + + + + + | [facility] | [address] | [place] [address] | [phone] | + + + + + documented in this encounter Visit Diagnoses + + | Diagnosis | + + | ESRD on dialysis ([facility]) End stage renal disease | [...]
--- OUTSIDE RECORDS SUMMARY | ~2020-07-31 | XMS | Encounter Summary ---
Demographics + + + | Address | [address] | | | [place] [address] | + + + | Home Phone | | + + + | Preferred Language | Unknown | + + + | Marital Status | Single | + + + | Confucianism Affiliation | 1041 | + + + | Race | White | + + + | Ethnic Group | Not or | + + + Author + + + | Author | [facility] | | | and [place] | + + + | Organization | [facility] | [...] Team Providers + +------+ + | Care Landing Scaler Name | Role | Phone | + +------+ + | Yrn Buckley MD | PCP | | + +------+ + Encounter Details +--------+ + + + + | Date | Type | Department | Care Team | Description | +--------+ + + + + | 01/01/ | Orders Only | [facility] | Eros Rothman MD | Essential | | 2020 | | NEPHROLOGY [place] | [address] [place] | hypertension | | | | [address] [place] | [address] [place], [place] | (Primary Dx); CKD | | | | [address] [place], [place] | [address] | (chronic kidney | | | | [address] | | disease) stage 5, | | | | [phone] | | GFR less than 15 | [...] [place], | | | | | | [place] [address] | | | | | | [phone] | | | | | | | | +--------+---------+ + + + + +------+--------+ + + | Name | Type | Priori | Associated Diagnoses | Order Schedule | | | | ty | | | + +------+--------+ + + | Renal Function Panel | Lab | Routin | Essential | Expected: | | | | e | hypertension CKD | 01/02/2020, Expires: | | | | | (chronic kidney | 01/01/2021 | | | | | disease) stage 5, | | | | | | GFR less than 15 | | | | | | ml/min ([facility]) | | | | | | Nephrotic range | | | | | | proteinuria | | + +------+--------+ + + | CBC with | Lab | Routin | Essential | Expected: | | Differential | | e | hypertension CKD | 01/02/2020, Expires: | | | | | (chronic kidney | 01/01/2021 | | | | | disease) stage 5, | | | | | | GFR less than 15 | | | | | | ml/min (HCC) | | | | | | Nephrotic range | | | | | | proteinuria | | + +------+--------+ + + documented as [...]
--- OUTSIDE RECORDS SUMMARY | ~2020-07-31 | XMS | Encounter Summary ---
Demographics + + + | Address | [address] | | | [place] [address] | + + + | Home Phone | | + + + | Preferred Language | Unknown | + + + | Marital Status | Single | + + + | Mandaen Affiliation | 1041 | + + + [...] Team Providers + +------+ + | Care Coppersmith Apprentice Name | Role | Phone | + [...] Services | Surgery | Essential | Eros Smion MD | Surgery | | | Required | | hypertension | [address] | [address] | | | | | CKD | [address] [place] [address] | [address] | | | | | (chronic | [place], | [place], [place] | | | | | kidney | [place] [address] | [address] | | | | | disease) | Phone: | Phone: | | | | | stage 5, GFR | [phone] | [phone] | | | | | less than | Fax: | Fax: | | | | | 15 ml/min | [phone] | [phone] | | | | | (HCC) | [...] + | 12/13/ | Orders Only | [facility] | Eros Rothman MD | Essential | | 2020 | | NEPHROLOGY [place] | [address] [place] | hypertension | | | | [address] [place] | [address] [place], [place] | (Primary Dx); CKD | | | | [address] [place], [place] | [address] | (chronic kidney | | | | [address] | | disease) stage 5, | | | | [phone] | | GFR less than 15 | [...] [place], | | | | | | [place] [address] | | | | | | [phone] | | | | | | | [...] | | | | | | ml/min ([facility]) | | | | | | Nephrotic [...] | | | | | | ml/min ([facility]) | | | | | | Nephrotic [...] Essential | Ordered: 12/13/2019 | | to [facility] | Referral | | hypertension CKD | | | Surgery | | | (chronic kidney | | | | | | disease) stage 5, | | | | | | GFR less than 15 | | | | | | ml/min ([facility]) | | | | | | Nephrotic [...]
--- OUTSIDE RECORDS SUMMARY | ~2020-07-31 | XMS | Encounter Summary ---
Demographics + + + | Address | [address] | | | [place] [address] | + + + | Home Phone | | + + + | Preferred Language | Unknown | + + + | Marital Status | Single | + + + | Sabianism Affiliation | 1041 | + + + [...] Team Providers + +------+ + | Care Neurology Technologist Name | Role | Phone | + +------+ + | Yrn Buckley MD | PCP | | + +------+ + Reason for Visit +--------+ + | Reason | Comments | +--------+ + | Other | US order sent to [facility] 11/29/19 confirmation | | | received. | +--------+ + Encounter Details +--------+ + + + + | Date | Type | Department | Care Team | Description | +--------+ + + + + | 12/13/ | Documentati | [facility] | Gracia, | Other (US order sent | | 2020 | on | NEPHROLOGY [place] | Rayne Humphrey | to [facility] | | | | [address] | Machinist Outside | radiology 11/29/19 | | | | [address] [place] | | confirmation | | | | [address] | | received. ) | | | | [phone] | | | +--------+ + + + [...] | | | | | | [place] [address] | | | | | | [phone] | | | | | | | | +--------+---------+ + + + documented as of this encounter Visit Diagnoses Not on filedocumented in this encounter"
--- OUTSIDE RECORDS SUMMARY | ~2020-07-31 | XMS | Encounter Summary ---
Demographics + + + | Address | [address] | | | [place] [address] | + + + | Home Phone [...] Team Providers + +------+ + | Care Bias Machine Operator Name | Role | Phone | + +------+ + | Yrn Buckley MD | PCP | | + +------+ + Encounter Details +--------+ + + + + | Date | Type | Department | Care Team | Description | +--------+ + + + + | 03/25/ | Preadmit | [facility] | Elpidio Gunter MD | | | 2019 | Visit | CENTER [facility] | [address] | | | | | CLINIC [address] | [place], [place] | | | | | [place], [place] | [address] | | | | | [address] | [phone] | | | | | [phone] | | | +--------+ + + + [...] for the 03/25/20 encounter (Preadmit Visit) with [facility] ROOM 1 Medication Sig Instructions amLODIPine [...] | | | | | | [place] [address] | | | | | | [phone] | | | | | | | [...]
--- OUTSIDE RECORDS SUMMARY | ~2020-07-31 | XMS | Encounter Summary ---
Demographics + + + | Address | [address] | | | [place] [address] | + + + | Home Phone | | + + + | Preferred Language | Unknown | + + + | Marital Status | Single | + + + | Hoahaoism Affiliation | 1041 | + + + | Race | White | + + + | Ethnic Group | Not or | + + + Author + + + | Author | [facility] | | | and [place] | + + + | Organization | [facility] | | [...] Team Providers + +------+ + | Care Job Putter Up And Ticket Preparer Name | Role | Phone | [...] | | | | | requiring | [address] | | | | | | chronic | Phone: | | | | | | dialysis | [phone] | | | | | | ([facility]) AVF | Fax: | | | | | | (arterioveno | [phone] | | | | | | us [...] + + | 01/23/ | Office | [facility] | Cirilo Tijerina DNP | CKD (chronic kidney | | 2020 | Visit | VASCULAR SURGERY | [address] | disease) requiring | | | | [address] [place] | [place], [place] | chronic dialysis | | | | [place], [place] | [address] | (HCC) (Primary Dx); | | | | [address] | | AVF (arteriovenous | | | | [phone] | | fistula) (HCC) | +--------+---------+ + [...] Cirilo Tijerina DNP - 01/24/2020 1:00 PM [facility] [address] [place] [address] Office: [phone] DATE OF VISIT: 01/24/2020 PATIENT NAME: Jude Henley : 1970; AGE: 49 y.o.; Sex:M PHONE NUMBER: ; ; PROVIDER: Cirilo Tijerina DNP PRIMARY CARE / REFERRING PHYSICIAN: No ref. provider found / Yrn Buckley MD / [address] / [place] [address] REASON FOR EVALUATION / CHIEF COMPLAINT: Vascular Surgery Postoperative Visit for AVF creation The patient presents today for a Vascular Surgery Postoperative Visit. The patient is statu s post left brachiocephalic AVF creation, which was performed on 01/05/[address] [facility] Operating Room. The patient is not having any pain. The patient denies fever, wound drainage, increasing redness, pus, increasing pain, increasing swelling. Physic al examination revealed surgical incision which is healing well without signs of infection. He has good thrills over the AVF site. Patient's bilingual operator is Dr. Rothman. The patient is a right handed person. The patient is receiving hemodialysis on Wednesday, and ay via right upper chest tunneled catheter at [facility]. VITAL SIGNS: BP 149/88 | Pulse 83 [...] | | | | | | [place] [address] | | | | | | [phone] | | | | | | | [...]
--- OUTSIDE RECORDS SUMMARY | ~2020-07-31 | XMS | Encounter Summary ---
Demographics + + + | Address | [address] | | | [place] [address] | + + + | Home Phone [...] Team Providers + +------+ + | Care Humanities Teacher Name | Role | Phone | [...] + + | 01/05/ | Anesthesia | [facility] | Ruslan Troncoso | | | 2020 | Event | [facility] | [address] | | | | | OPER[address] | [address] | | | | | [address] | [place], [place] | | | | | [place], [place] | [address] | | | | | [address] | [phone] | | | | | [phone] | | | | | | | Sherry Law | | | | | | MD [address] | | | | | | [place] [address] | | | | | | [phone] | | | | | | | [...] Tiffanie Rodriguez, | | | IV | [id number]-[id number] catheter system; | RN | | | [...] EVALUATION Jude Henley 49 y.o. male 1970 [id number] Procedure(s) INSERTION AV FISTULA (Left Arm Upper) [...] by Ruslan Troncoso CRNA 01/05/2020 4:29 PM [facility] nesthesia Preprocedure Evaluation - Yamilex Ramsey MD - 01/05/2020 2:44 PM PST ANESTHESIA PREANESTHESIA EVALUATION Jude Henley 49 y.o. male 1970 [id number] Procedure(s): INSERTION AV FISTULA (Left Arm Upper) [...] NOTE Jude Henley 49 y.o. male 1970 [id number] INSERTION AV FISTULA (Left Arm Upper) HANDOFF [...] team. Ruslan Troncoso CRNA 01/05/2020 4:28 PM [facility] documented in this [...] | | | | | | [place] [address] | | | | | | [phone] | | | | | | | [...]
--- OUTSIDE RECORDS SUMMARY | ~2020-07-31 | XMS | Encounter Summary ---
Demographics + + + | Address | [address] | | | [place] [address] | + + + | Home Phone [...] Team Providers + +------+ + | Care School Fundraising Director Name | Role | Phone | [...] | | | stage 5, GFR | [address] | | | | | | less than | Phone: | | | | | | 15 ml/min | [phone] | | | | | | (HCC) | Fax: | | | | | | Procedures | [phone] | | | | | | VAS [...] + + + + | 12/29/ | Orders Only | [facility] | Breezy, Si, DNP | CKD (chronic kidney | | 2020 | | VASCULAR SURGERY | [address] | disease) stage 5, | | | | [address] [place] | [place], [place] | GFR less than 15 | | | | [place], [place] | [address] | ml/min (HCC) | | | | [address] | | (Primary Dx) | | | | [phone] | | | +--------+ + + + [...] | | 2020 | Visit | | [address] | | | | | | [place], | | | | | | [place] [address] | | | | | | [phone] | | | | | | | | +--------+---------+ + + + documented as of this encounter Results VAS Arm Bilateral Mapping [...] + | Juan, Rad Results In - 01/01/2020 6:45 AM PST | | UPPER [...] 5, GFR less than 15 ml/min (HCC) - Primary Chronic | | kidney disease, Stage V | + + documented in this encounter"
--- OUTSIDE RECORDS SUMMARY | ~2020-07-31 | XMS | Encounter Summary ---
Demographics + + + | Address | [address] | | | [place] [address] | + + + | Home Phone [...] Team Providers + +------+ + | Care Spanish Teacher Name | Role | Phone | [...] + + | 02/25/ | Office | [facility] | Cirilo Tijerina DNP | ESRD on dialysis | | 2019 | Visit | VASCULAR SURGERY | [address] | ([facility]) (Primary Dx); | | | | [address] [place] | [place], [place] | AVF (arteriovenous | | | | [place], [place] | [address] | fistula) ([facility]) | | | | [address] | | | | | | [phone] | | | +--------+---------+ + + + [...] Cirilo Tijerina DNP - 02/26/2020 1:30 PM [facility] Surgery [facility] [address] [place] [address] Office: [phone] DATE OF VISIT: 02/26/2020 PATIENT NAME: Jude Henley : 1970; AGE: 49 y.o.; Sex:M PHONE NUMBER: ; ; PROVIDER: Cirilo Tijerina DNP PRIMARY CARE / REFERRING PHYSICIAN: No ref. provider found / Yrn Buckley MD / [address] / [place] [address] REASON FOR EVALUATION / CHIEF COMPLAINT: Vascular Surgery Postoperative Visit for AVF creation The patient presents today for a Vascular Surgery Postoperative Visit. The patient is statu s post left brachiocephalic AVF creation, which was performed on 01/05/2020 at the [facility] Operating Room. The patient is not having any pain. The patient denies fever, wound drainage, increasing redness, pus, increasing pain, increasing swelling. Physic al examination revealed surgical incision is healed. He has good thrills over the AVF site. Patient's fire apparatus sprinkler inspector is Dr. Rothman. The patient is a right handed person. The patient is r eceiving hemodialysis on Wednesday, and Wednesday via right upper chest tunneled lorenzo ter at [facility]. VITAL SIGNS: BP (!) 165/94 | Pulse [...] | | | | | | [place] [address] | | | | | | [phone] | | | | | | | | +--------+---------+ + + + documented as of this encounter Visit Diagnoses + + | Diagnosis | + + | ESRD on dialysis (HCC) - Primary End stage renal disease | + + | AVF (arteriovenous fistula) ([facility]) Arteriovenous fistula, acquired | + + [...]
--- OUTSIDE RECORDS SUMMARY | ~2020-07-31 | XMS | Encounter Summary ---
Demographics + + + | Address | [address] | | | [place] [address] | + + + | Home Phone | | + + + | Preferred Language | Unknown | + + + | Marital Status | Single | + + + | Episcopalian Affiliation | 1041 | + + + [...] Team Providers + +------+ + | Care Homicide Detective Name | Role | Phone | + [...] | | | | | | [place] [address] | [address] | | | | | | Phone: | Phone: | | | | | | [phone] | [phone] | | | | | | Fax: | Fax: | | | | | | [phone] | [phone] | +--------+--------+ + + + + Encounter Details +--------+---------+ + + + | Date | Type | Department | Care Team | Description | +--------+---------+ + + + | 10/09/ | Office | [facility] | Eros Rothman MD | CKD (chronic kidney | | 2019 | Visit | NEPHROLOGY [place] | [address] [place] | disease) stage 5, | | | | [address] | [address] [place], [place] | GFR less than 15 | | | | [address] [place] [address] | [address] | ml/min ([facility]); 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 So we will go wit [facility] plan below. I see no need for acute LOT ASSOCIATE. I decreased his Lisinopril from 40 mg [...] SPIE, SFLC, uric acid, Urin e total kalmomn-fj-jozxussrsl ratio before he comes back in [address] Buckley for the opportunity to see this patient in consult on an urgent basis today. Please do not hesitate to call me at any time with questions or concerns. Truly yours, Eros Rothman MD [facility] documented in this enco unter [...] | | | | | | [place] [address] | | | | | | [phone] | | | | | | | | +--------+---------+ + + + documented as of this encounter Visit Diagnoses + + | Diagnosis | + + | CKD (chronic kidney disease) stage 5, GFR less than 15 ml/min ([facility]) Chronic kidney | | disease, [...]
--- OUTSIDE RECORDS SUMMARY | ~2020-07-31 | XMS | Encounter Summary ---
Demographics + + + | Address | [address] | | | [place] [address] | + + + | Home Phone | | + + + | Preferred Language | Unknown | + + + | Marital Status | Single | + + + | Restoration Affiliation | 1041 | + + + | Race | White | + + + | Ethnic Group | Not or | + + + Author + + + | Author | [facility] | | | and [place] | + + + | Organization | [facility] | | | and [...] Team Providers + +------+ + | Care Box Toe Stitcher Name | Role | Phone | + +------+ + | Yrn Buckley MD | PCP | | + +------+ + Encounter Details +--------+---------+ + + + | Date | Type | Department | Care Team | Description | +--------+---------+ + + + | 01/03/ | Office | [facility] | Eros Rothman MD | CKD (chronic kidney | | 2020 | Visit | NEPHROLOGY [place] | [address] [place] | disease) stage 5, | | | | [address] | [address] [place], [place] | GFR less than 15 | | | | [address] [place] [address] | [address] | ml/min (HCC) | | | | [place], [place] | | (Primary Dx); | | | | [address] | | Uremia, acute; | | | | [phone] | | Anemia of chronic | | [...] regularly. I will see him at the [facility] on dialysis rounds. documented in this encounter [...] I see an acute indication for starting BAR EXAMINER for severe & worsening uremia. I kept [...] regularly. I will see him at the [facility] on dialysis rounds. Thank you Dr Buckley [...] | | | | | | [place] [address] | | | | | | [phone] | | | | | | | | +--------+---------+ + + + documented as of this encounter Visit Diagnoses + + | Diagnosis | + + | CKD (chronic kidney disease) stage 5, GFR less than 15 ml/min ([facility]) - Primary Chronic | | [...]
--- OUTSIDE RECORDS SUMMARY | ~2020-07-31 | XMS | Encounter Summary ---
Demographics + + + | Address | [address] | | | [place] [address] | + + + | Home Phone [...] Providers + +------+ + | Care Inspector Eyeglass Frames Name | Role | Phone | + [...] + + | 12/25/ | Telephone | [facility] | Eros Rothman MD | Other (Fistula ) | | 2020 | | NEPHROLOGY [facility] | [address] [place] | | | | | [address] [place] | [address] [facility] [place] | | | | | [address] [place], [place] | [address] | | | | | [address] | | | | | | [phone] | | | +--------+ + + + [...] Miscellaneous Notes Telephone Encounter - Milagro Garcia Pivot End Polisher - 12/25/2019 3:34 PM Jose Roberto Rothman [...] | | | | | | [place] [address] | | | | | | [phone] | | | | | | | | +--------+---------+ + + + documented as of this encounter Visit Diagnoses Not on filedocumented in this encounter"
--- OUTSIDE RECORDS SUMMARY | ~2020-07-31 | XMS | Encounter Summary ---
Demographics + + + | Address | [address] | | | [place] [address] | + + + | Home Phone [...] Team Providers + +------+ + | Care Certified Hyperbaric Technician Name | Role | Phone | [...] + + | 03/28/ | Telephone | [facility] | Elpidio Gunter MD | Procedure | | 2020 | | VASCULAR SURGERY | [address] | | | | | [address] [place] | [place], [place] | | | | | [place], [place] | [address] | | | | | [address] | [phone] | | | | | [phone] | | | +--------+ + + + [...] w 03/29. Patient stated he lives in [place] and needs to arrange a ride. Please contact on home number listed. If this is a symptom based call, was patient offered triage? Not Applicable If this is a symptom based call and you were unable to immediately transfer the call to a mikel varela director quality systems was caller made aware that if at [...] [place], | | | | | | [place] [address] | | | | | | [phone] | | | | | | | [...]
--- OUTSIDE RECORDS SUMMARY | ~2020-07-31 | XMS | Encounter Summary ---
Demographics + + + | Address | [address] | | | [place] [address] | + + + | Home Phone | | + + + | Preferred Language | Unknown | + + + | Marital Status | Single | + + + | Presybeterian Affiliation | 1041 | + + + [...] Team Providers + +------+ + | Care Analytical Scientist Name | Role | Phone | + [...] + + | 06/19/ | Documentati | [facility] | Jose, | Other (transplant | | 2019 | on | NEPHROLOGY [place] | Rayne Humphrey | team letter | | | | [address] | Engine Room Operator | 06/12/20) | | | | [address] [place], [place] | | | | | | [address] | | | | | | [phone] | | | +--------+ + + + [...] | | | | | | [place] [address] | | | | | | [phone] | | | | | | | | +--------+---------+ + + + documented as of this encounter Visit Diagnoses Not on filedocumented in this encounter"
--- OUTSIDE RECORDS SUMMARY | ~2020-07-31 | XMS | Encounter Summary ---
Demographics + + + | Address | [address] | | | [place] [address] | + + + | Home Phone [...] Team Providers + +------+ + | Care Explosives Operator Name | Role | Phone | + +------+ + | Yrn Buckley MD | PCP | | + +------+ + Encounter Details +--------+ + + + + | Date | Type | Department | Care Team | Description | +--------+ + + + + | 12/19/ | Orders Only | [facility] | RipEros adams MD | Essential | | 2020 | | NEPHROLOGY [place] | [address] [place] | hypertension | | | | [address] [place] | [address] [place], [place] | (Primary Dx); CKD | | | | [address] [place], [place] | [address] | (chronic kidney | | | | [address] | | disease) stage 5, | | | | [phone] | | GFR less than 15 | | | | | | ml/min (HCC) | +--------+ + + + + [...] [place], | | | | | | [place] [address] | | | | | | [phone] | | | | | | | [...] | | | | (chronic kidney | 12/19/2020 | | | | | disease) stage 5, | | | | | | GFR less than 15 | | | | | | ml/min ([facility]) | | + +------+--------+ + + | CBC with | Lab | Routin | Essential | Expected: | | Differential | | e | hypertension CKD | 01/02/2020, Expires: | | | | | (chronic kidney | 12/19/2020 | | | | | disease) stage 5, | | | | | | GFR less than 15 | | | | | | ml/min ([facility]) | | + +------+--------+ + + documented [...]
--- OUTSIDE RECORDS SUMMARY | ~2020-07-31 | XMS | Encounter Summary ---
Demographics + + + | Address | [address] | | | [place] [address] | + + + | Home Phone | | + + + | Preferred Language | Unknown | + + + | Marital Status | Single | + + + | Anglican Affiliation | 1041 | + + + | Race | White | + + + | Ethnic Group | Not or | + + + Author + + + | Author | [facility] | | | and [place] | + + + | Organization | [facility] | | | [...] Team Providers + +------+ + | Care Human Resources File Clerk Name | Role | Phone | [...] + + | 10/13/ | Documentati | [facility] | Jose, | Other ([place] | | 2019 | on | NEPHROLOGY [place] | [facility] | retroperitoneal | | | | [address] | Tubing Supervisor | 07/26/19) | | | | [address] | | | | | | [place], [place] | | | | | | [address] | | | | | | [phone] | | | +--------+ + + + [...] | | | | | | [place] [address] | | | | | | [phone] | | | | | | | | +--------+---------+ + + + documented as of this encounter Visit Diagnoses Not on filedocumented in this encounter"
--- OUTSIDE RECORDS SUMMARY | ~2020-07-31 | XMS | Encounter Summary ---
Demographics + + + | Address | [address] | | | [place] [address] | + + + | Home Phone | | + + + | Preferred Language | Unknown | + + + | Marital Status | Single | + + + | Evangelical Affiliation | 1041 | + + + [...] Team Providers + +------+ + | Care Media Sales Consultant Name | Role | Phone | [...] + + | 01/03/ | Documentati | [facility] | Garcia, | Results (01/02/20) | | 2020 | on | NEPHROLOGY [place] | Rayne Humphrey | | | | | [address] [place] | Clothing Busheler | | | | | [address] [facility] [place] | | | | | | [address] | | | | | | [phone] | | | +--------+ + + + [...] [place], | | | | | | [place] [address] | | | | | | [phone] | | | | | | | [...]
--- OUTSIDE RECORDS SUMMARY | ~2020-07-31 | XMS | Encounter Summary ---
Demographics + + + | Address | [address] | | | [place] [address] | + + + | Home Phone [...] Team Providers + +------+ + | Care Health Science Specialist Name | Role | Phone | [...] + + | 02/11/ | Telephone | [facility] | Leni Adrian | DME (quin) | | 2020 | | [address] | [place] | | | | | [place] | | | | | | [address] | | | | | | [phone] | | | +--------+ + + + [...] | | | | | | [place] [address] | | | | | | [phone] | | | | | | | [...]
--- OUTSIDE RECORDS SUMMARY | ~2020-07-31 | XMS | Encounter Summary ---
Demographics + + + | Address | [address] | | | [place] [address] | + + + | Home Phone [...] + + + | Author | [facility] | | | and [place] | + + + | Organization | [facility] | | | [...] Team Providers + +------+ + | Care Reproduction Artist Name | Role | Phone | + [...] + + | 10/09/ | Documentati | [facility] | Jose, | Results (10/03/19) | | 2019 | on | NEPHROLOGY [facility] | Rayne Humphrey | | | | | [address] | [place] | | | | | [address] | | | | | | [place] | | | | | | [address] | | | | | | [phone] | | | +--------+ + + + [...] | | | | | | [place] [address] | | | | | | [phone] | | | | | | | [...] 1.001 - 1.030 | | | | [place], | | | | | | Urine [...]
--- OUTSIDE RECORDS SUMMARY | ~2020-07-31 | XMS | Encounter Summary ---
Demographics + + + | Address | [address] | | | [place] [address] | + + + | Home Phone [...] Author + + + | Author | [facility] | | | and [place] | + + + | Organization | [facility] | | | [...] + +------+ + | Care Pipe Fitter Apprentice Name | Role | Phone | [...] + + | 12/13/ | Telephone | [facility] | Eros Rothman MD | Other (Lab results | | 2019 | | [facility] | [address] [place] | and referral ) | | | | [address] [place] | [address] [place], [place] | | | | | [address] [place], [place] | [phone] | | | | | [address] | | | | | | [phone] | | | +--------+ + + + [...] to see Dr. Rothman on Wednesday in [place]. el ephone Encounter - [facility] [...] | 09/30/ | Office | Cardiology | [place], Aditya M, | | | 2019 | Visit | | [address] | | | | | | [place], | | | | | | [place] [address] | | | | | | [phone] | | | | | | | | +--------+---------+ + + + documented as of this encounter Visit Diagnoses Not on filedocumented in this encounter"
--- OUTSIDE RECORDS SUMMARY | ~2020-07-31 | XMS | Encounter Summary ---
Demographics + + + | Address | [address] | | | [place] [address] | + + + | Home Phone [...] Team Providers + +------+ + | Care Manager Books Name | Role | Phone | + [...] + + | 01/05/ | Surgery | [facility] | Elpidio Gunter MD | INSERTION AV FISTULA | | 2020 | | [facility] | [address] | | | | | OPER[address] | [place], [place] | | | | | [address] | [address] | | | | | [place], [place] | [phone] | | | | | [address] | | | | | | [phone] | | | +--------+---------+ + + + [...] might be different f rom the original. [facility] Service: Hospitalist Physician Discharge Summary [...] Dr Rothman, nephrology, and was sent to [facility] emergency department due to uremia and [...] hospitalist. Hospital course: Patient was admitted to [facility] with a both presenting complaint. Patient [...] zaragoza coordinated with outpatient dialysis centers in [facility] to estab [facility] care time for the patient. Eventually [...] Surgeon: Elpidio Gunter MD; Location: [facility] MAIN OR OTHER [...] Gunter MD [address] [place] [address] In 2 weeks For posthospitalization reevaluation [place] [address] [facility] [phone] Go on 01/11/2020 Dialysis begins at 1:30 pm. Please arrive 15 minutes early to fill out paperwork. Yrn Buckley MD [address] [facility] [place] [address] In 1 week For posthospitalization reevaluation Discharge [...] cuts, scrapes, or blows. Date Last Reviewed: 11/08/201619999731-5379 [employer]. [address] [place] [id number]. All righ ts reserved. This information is not intended as a substitute for professional medical care. Always follow your healthcare professional's instructions. AttachmentsThe following attachments cannot be sent through Care Everywhere.Senna tablets o r capsules (Norwegian)documented in this encounter Medications at Time of [...] sent from Dr. Bill.) Recommendations: No acute CLEANING AND WASHING EQUIPMENT OPERATOR indication. Plan it for tomorrow No IVF [...] Jessica MD - 01/09/2020 7:56 AM PST [facility] Service: Hospitalist Progress Note Pt: Cely Henley AGE/SEX: 49 y.o. male : 1970 ROOM: [facility]/8102- HPC: " Patient Summary: 49-year-old [...] Surgeon: Elpidio Gunter MD; Location: [facility] MAIN OR OTHER [...] D O - 01/08/2020 4:25 PM PST [facility] Service: Hospitalist Progress Note Hospital [...] Code Bri Bishop DO 01/08/2020 4:25 PM Eors Delong MD - 01/07/2020 12:47 PM PST [...] sent from Dr. Bill.) Recommendations: No acute CLEANING AND WASHING EQUIPMENT OPERATOR indication. Plan it for tomorrow No IVF [...] Abarca DO - 01/07/2020 7:59 AM PST [facility] Service: Hospitalist Progress Note Hospital [...] Inpatient. Code Status: Full Code Dictation and marine geologist or software, [employer], used which may contain error for similar s ounding words even after review. Personal communication requested for any clarification. Bri Bishop DO 01/07/2020 7:59 AM Hayes Correa MD - 01/06/2020 9:40 AM PST [facility] Service: Hospitalist Progress Note Hospital [...] Inpatient. Code Status: Full Code Dictation and marine geologist or software, [employer], used which may contain error for similar s ounding words even after review. Personal communication requested for any clarification. Hayes Mason MD 01/06/2020 9:40 AM Hayes Correa MD - 0 01/05/2020 7:48 AM PST [facility] Service: Hospitalist Progress Note Hospital [...] Inpatient. Code Status: Full Code Dictation and marine geologist or software, [employer], used which may contain error for similar [...] Elpidio Gunter MD - 01/05/2020 9:14 AM [facility] Service: Vascular Surgery Pre-Operative History & Physical [...] included cigarettes. He has never used s [employer] tobacco. He reports previous alcohol use. 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 Eros Rothman MD [facility], Eros Simon MD - 9:07 AM [...] file Gets together: Not on file Attends baptist service: Not on file Active member of [...] down No IVF need. With the planned CLEANING AND WASHING EQUIPMENT OPERATOR, his nausea & PO intake will get better No diuresis There is no acute UF indication Given his tendency for anasarca: Encourage adequate intake & close dietitian F/U. Encourage ambulation safely. Encourage the adequate use of an incentive spirometer. RENAL FUNCTION: Severely low GFR There is an acute CLEANING AND WASHING EQUIPMENT OPERATOR indication No IVF Strict I/O & daily [...] frequently ELECTROLYTES: Abnormal. There is an acute CLEANING AND WASHING EQUIPMENT OPERATOR indication Sodium: ok Potassium: ok Calcium: corca [...] might be differen t from the original. [facility] Department of Emergency Medicine 9:15 [...] file Gets together: Not on file Attends baptist service: Not on file Active member of [...] sore throat CV/Resp: Negative for chest pain, yutnylrrp-zy-qjlrai, cough GI: Negative for abdominal pain, nausea, [...] IVPB (125 mg Intravenous New Bag 01/05/20 0117) sodium chloride 0.9% (NS) bolus 100 mL [...] Old medical records. Nursing notes. No prior [facility] ED visits available for review. Laboratory Evaluation Results Procedure Component Value Ref Range Date/Time Comprehensive Metabolic Panel [[id number]] (Abnormal) Collected: 01/04/202058 Order Status: Completed Specimen: [...] Estimated GFR 5 >60 mL/min/1.73m2 CK Total [[id number]] Collected: 01/04/202058 Order Status: Completed Updated: 01/04/20 2221 CK TOTAL 126 55 - 400 U/L CBC with Differential [[id number]] (Abnormal) Collected: 01/04/202058 Order Status: Completed Specimen: [...] Interpretation==== Time: 2112 Rate: 82 Rhythm: Sinus Steele: normal Intervals: normal ST: normal Other: none [...] 2 weeks. Specialty: Vascular Surgery Contact information: [address] [place] [address] [place] [address] Discharge Medications: Current Discharge Medication List [...] Current Outpt/Agency/Support Groups: hemodialysis Community Agency Name: [facility] Equipment Home Equipment at Discharge: 4WW Equipment Used at Home: none Pharmacy Pharmacy/Medication needs: ([facility] [place]) Notes: Dialysis coordinator Danette notified CM this [...] have AFOs on when going to the [employer] at night. Precautions Precaution Comment: bilat AFOs Precautions/Limitations: falls Impairments Found (describe specific impairments): functional endurance/activity tolerance, gait, locomotion, and balance, sensory integration/regulation, muscle performance, neuromot or Bed Mobility Additional Documentation: supine to/from sit Assistive Device: none Supine to Sit, Level of Parachute: independent Sit to Supine, Level of Parachute: independent Transfers Transfers Comments: Transfer training using 4WW Additional Documentation: sit to/from stand Sit-Stand, Level of Parachute: modified independent Stand-Sit, Level of Parachute: modified independent Rno-Uxkam-Xhs, Assistive Device: 4 wheeled walker (4WW), none Safety Issues: loses balance backward Impairments: strength decreased, impaired balance, sensation decreased Gait Gait Comments: Gait training with 4WW Level of Parachute: stand by assist Assistive Device: 4 wheeled walker (4WW) Distance (feet): 40x2 Additional Documentation: safety, impairments, stairs (group) Impairments: sensation decreased, strength decreased, impaired balance Stairs Number of Stairs: 1 Handrail Location: left side (ascending)(raised bed rail) Level of Parachute: minimal assist (75% patient effort) Assistive Device: [...] All Transfers Goal Most Recent Value LTG Parachute Level modified independent at 01/09/2020 1523 LTG Assistive Device 4 wheeled walker (4WW) at 01/09/2020 1523 Gait Goal Most Recent Value LTG Parachute Level modified independent at 01/09/2020 1523 LTG Assistive Device 4 wheeled walker (4WW) at 01/09/2020 1523 LTG Distance (feet) 50 at 01/09/2020 1523 Stair Goal Most Recent Value LTG Parachute Level contact guard assist at 01/09/2020 1523 [...] Steps Taken Toward Discharge: Per Hospitalist report, [facility] will be ope abbey up [...] Elpidio Gunter MD - 01/05/2020 4:[address] [facility] Service: Vascular Surgery Operative Note Pre-operative Diagnosis: ESRD and need for manager intermediate dialysis access Post-operative Diagnosis: same Procedure(s): Left brachiocephalic fistula creation Surgeon: Elpidio Gunter MD Rotary Slicing Machine Operator(s): KENAN Bunch (PA was required to help [...] Gunter MD - 01/05/2020 9:44 AM PST [facility] Service: Vascular Surgery Brief Op Note Pre-operative Diagnosis: Acute on chronic renal failure Post-operative Diagnosis: same Procedure(s): Ultrasound guided access of right internal jugular vein Placement of 23 cm tunneled dialysis catheter under fluoroscopic guidance Surgeon: Elpidio Gunter MD Rotary Slicing Machine Operator(s): None Anesthesia: Moderate sedation and Local anesthesia [...] | | | | | | [place] [address] | | | | | | [phone] | | | | | | | [...] F?MRN: | | | | | | [id number] | | | [id number] | | | riteri | | | [...] | | | St. | | | [facility] | | | y | | | [...] | | | [facility]. | | [facility] y | | | Hospit | | | al | | | Patien | | | t is | | | curren | | | tly | | | establ | | | ished | | | with | | | St | | | [facility] | | | y | | | [...] St | | | | | | [place] | | | y | | | [...] | | | St. | | | [place] | | | y | | | [...] | | | St. | | | [place] | | | y H. | | [...] | | | St. | | | [place] | | | y H. | | [...] | | | MD | | | Disability Liaison Officer | | | al | | | [...] | | | [phone] | | | [id number] | | | 5c | | | [...] Testing | 65 - 99 mg/dL | [facility] | | | POC | performed at [facility];[address] | | LABORATORY | | | | [address];[place] | | | | | | [address] | | | | + + + + + + + + | Specimen | + + | | + + + + + + + | Performing | Address | City/State/Zipcode | Phone Number | | Organization | | | | + + + + + | [facility] | [address] | [place] [address] | [phone] | + + + + + HEMODIALYSIS [...] Testing | 65 - 99 mg/dL | [facility] | | | POC | performed at [facility];[address] | | LABORATORY | | | | [address];[place], [place] | | | | | | [address] | | | | + + + + + + + + | Specimen | + + | | + + + + + + + | Performing | Address | City/State/Zipcode | Phone Number | | Organization | | | | + + + + + | [facility] | [address] | [place] [address] | [phone] | + + + + + Hemoglobin A1C (01/10/2020 5:22 AM PST) + + + + + + | Component | Value | Ref Range | Performed | Pathologist | | | | | At | Signature | + + + + + + | Hemoglobin | 6.3 (H)Comment: HbA1c | 4.0 - 6.0 % | [facility] | | | A1c [...] | 134Comment: Estimated | <154 mg/dL | [facility] | | | Average | Average Glucose | | LABORATORY | | | Glucose | calculated from | | | | | | hemoglobin A1c by use of | | | | | | the ADArecommended | | | | | | formula.Testing | | | | | | performed at [facility], [address] | | | | | | [address], | | | | | | [place] [address] | | | | + + + + + + + + | Specimen | + + | Blood | + + + + + + + | Performing | Address | City/State/Zipcode | Phone Number | | Organization | | | | + + + + + | [facility] | [address] | [place] [address] | [phone] | + + + + + Magnesium (01/10/2020 5:22 AM PST) + + + + + + | Component | Value | Ref Range | Performed | Pathologist | | | | | At | Signature | + + + + + + | Magnesium | 1.5 (L)Comment: Testing | 1.7 - 2.4 mg/dL | [place] | | | | performed at [facility], [address] | | LABORATORY | | | | [address], | | | | | | [place] [address] | | | | + + + + + + + + | Specimen | + + | Blood | + + + + + + + | Performing | Address | City/State/Zipcode | Phone Number | | Organization | | | | + + + + + | [facility] | [address] | [place] [address] | [phone] | + + + + + CBC [...] performed at [facility], [address] | K/uL | LABORATORY | | | | [address], | | | | | | [place] [address] | | | | + + + + + + + + | Specimen | + + | Blood | + + + + + + + | Performing | Address | City/State/Zipcode | Phone Number | | Organization | | | | + + + + + | [facility] | [address] | [place] [address] | [phone] | + + + + + Basic [...] performed at [facility], [address] | | | | | | [facility], | | | | | | [place] [address] | | | | + + + + + + + + | Specimen | + + | Blood | + + + + + + + | Performing | Address | City/State/Zipcode | Phone Number | | Organization | | | | + + + + + | [facility] | [address] | [place] [address] | [phone] | + + + + + POC Glucose (01/09/2020 8:40 PM PST) + + + + + + | Component | Value | Ref Range | Performed | Pathologist | | | | | At | Signature | + + + + + + | Glucose, | 176 (H)Comment: Testing | 65 - 99 mg/dL | [facility] | | | POC | performed at [facility];[address] | | LABORATORY | | | | [address];[place] | | | | | | [address] | | | | + + + + + + + + | Specimen | + + | | + + + + + + + | Performing | Address | City/State/Zipcode | Phone Number | | Organization | | | | + + + + + | [facility] | [address] | [place] [address] | [phone] | + + + + + POC [...] | POC | performed at [facility];[address] | | LABORATORY | | | | [address];[place] | | | | | | [address] | | | | + + + + + + + + | Specimen | + + | | + + + + + + + | Performing | Address | City/State/Zipcode | Phone Number | | Organization | | | | + + + + + | [facility] | [address] | [place] [address] | [phone] | + + + + + POC [...] | POC | performed at [facility];[address] | | LABORATORY | | | | [address];[place], [place] | | | | | | [address] | | | | + + + + + + + + | Specimen | + + | | + + + + + + + | Performing | Address | City/State/Zipcode | Phone Number | | Organization | | | | + + + + + | [facility] | [address] [facility] | [place] [address] | [phone] | + + + + + POC [...] | POC | performed at [facility];[address] | | LABORATORY | | | | [address];[place], [place] | | | | | | [address] | | | | + + + + + + + + | Specimen | + + | | + + + + + + + | Performing | Address | City/State/Zipcode | Phone Number | | Organization | | | | + + + + + | [facility] | [address] | [place] [address] | [phone] | + + + + + POC [...] | POC | performed at [facility];[address] | | LABORATORY | | | | [address];[place] | | | | | | [address] | | | | + + + + + + + + | Specimen | + + | | + + + + + + + | Performing | Address | City/State/Zipcode | Phone Number | | Organization | | | | + + + + + | [facility] | [address] | [place] [address] | [phone] | + + + + + POC Glucose (01/09/2020 3:53 AM PST) + + + + + + | Component | Value | Ref Range | Performed | Pathologist | | | | | At | Signature | + + + + + + | Glucose, | 105 (H)Comment: Testing | 65 - 99 mg/dL | [facility] | | | POC | performed at [facility];[address] | | LABORATORY | | | | [address];[place], [place] | | | | | | [address] | | | | + + + + + + + + | Specimen | + + | | + + + + + + + | Performing | Address | City/State/Zipcode | Phone Number | | Organization | | | | + + + + + | [facility] | [address] | [place] [address] | [phone] | + + + + + POC [...] | POC | performed at [facility];[address] | | LABORATORY | | | | [address];[place] | | | | | | [address] | | | | + + + + + + + + | Specimen | + + | | + + + + + + + | Performing | Address | City/State/Zipcode | Phone Number | | Organization | | | | + + + + + | [facility] | [address] | [place] [address] | [phone] | + + + + + POC Glucose (01/08/2020 4:06 PM PST) + + + + + + | Component | Value | Ref Range | Performed | Pathologist | | | | | At | Signature | + + + + + + | Glucose, | 85Comment: Testing | 65 - 99 mg/dL | [facility] | | | POC | performed at [facility];[address] | | LABORATORY | | | | [address];[place] | | | | | | [address] | | | | + + + + + + + + | Specimen | + + | | + + + + + + + | Performing | Address | City/State/Zipcode | Phone Number | | Organization | | | | + + + + + | [facility] | [address] | [place] [address] | [phone] | + + + + + XR [...] | POC | performed at [facility];[address] | | LABORATORY | | | | [address];[place] | | | | | | [address] | | | | + + + + + + + + | Specimen | + + | | + + + + + + + | Performing | Address | City/State/Zipcode | Phone Number | | Organization | | | | + + + + + | [facility] | [address] | [place] [address] | [phone] | + + + + + HEMODIALYSIS [...] | | | | | At | [facility] | + + + + + + | Glucose, | 91Comment: Testing | 65 - 99 mg/dL | [facility] | | | POC | performed at [facility];[address] | | LABORATORY | | | | [address];[place], [place] | | | | | | [address] | | | | + + + + + + + + | Specimen | + + | | + + + + + + + | Performing | Address | City/State/Zipcode | Phone Number | | Organization | | | | + + + + + | [facility] | [address] | [place] [address] | [phone] | + + + + + Comprehensive [...] | | | performed at [facility] | | | | | | [address] [facility];[place], [place] | | | | | | [address] | | | | + + + + + + + + | Specimen | + + | Blood | + + + + + + + | Performing | Address | City/State/Zipcode | Phone Number | | Organization | | | | + + + + + | [facility] | [address] | [place] [address] | [phone] | + + + + + CBC [...] LABORATORY | | | | performed at [facility];[address] | | | | | | [address];[place] | | | | | | [address] | | | | + + + + + + + + | Specimen | + + | Blood | + + + + + + + | Performing | Address | City/State/Zipcode | Phone Number | | Organization | | | | + + + + + | [facility] | [address] | [place] [address] | [phone] | + + + + + POC [...] | POC | performed at [facility];[address] | | LABORATORY | | | | [address];[place] | | | | | | [address] | | | | + + + + + + + + | Specimen | + + | | + + + + + + + | Performing | Address | City/State/Zipcode | Phone Number | | Organization | | | | + + + + + | [facility] | [address] | [place] [address] | [phone] | + + + + + POC Glucose (01/07/2020 5:44 PM PST) + + + + + + | Component | Value | Ref Range | Performed | Pathologist | | | | | At | Signature | + + + + + + | Glucose, | 132 (H)Comment: Testing | 65 - 99 mg/dL | [facility] | | | POC | performed at [facility];[address] | | LABORATORY | | | | [address];[place] | | | | | | [address] | | | | + + + + + + + + | Specimen | + + | | + + + + + + + | Performing | Address | City/State/Zipcode | Phone Number | | Organization | | | | + + + + + | [facility] | [address] | [place] [address] | [phone] | + + + + + POC [...] | POC | performed at [facility];[address] | | LABORATORY | | | | [address];[place], [place] | | | | | | [address] | | | | + + + + + + + + | Specimen | + + | | + + + + + + + | Performing | Address | City/State/Zipcode | Phone Number | | Organization | | | | + + + + + | [facility] | [address] | [place] [address] | [phone] | + + + + + POC [...] | POC | performed at [facility];[address] | | LABORATORY | | | | [address];[place], [place] | | | | | | [address] | | | | + + + + + + + + | Specimen | + + | | + + + + + + + | Performing | Address | City/State/Zipcode | Phone Number | | Organization | | | | + + + + + | [facility] | [address] | [place] [address] | [phone] | + + + + + POC [...] | POC | performed at [facility];[address] | | LABORATORY | | | | [address];[place] | | | | | | [address] | | | | + + + + + + + + | Specimen | + + | | + + + + + + + | Performing | Address | City/State/Zipcode | Phone Number | | Organization | | | | + + + + + | [facility] | [address] | [place] [address] | [phone] | + + + + + POC Glucose (01/07/2020 7:38 AM PST) + + + + + + | Component | Value | Ref Range | Performed | Pathologist | | | | | At | Signature | + + + + + + | Glucose, | 112 (H)Comment: Testing | 65 - 99 mg/dL | [facility] | | | POC | performed at [facility];[address] | | LABORATORY | | | | [address];[place] | | | | | | [address] | | | | + + + + + + + + | Specimen | + + | | + + + + + + + | Performing | Address | City/State/Zipcode | Phone Number | | Organization | | | | + + + + + | [facility] | [address] | [place] [address] | [phone] | + + + + + Renal [...] 9 (L)Comment: GFR <60: | >60 | [facility] | | | GFR [...] | | | | | | [facility] traceable | | | | | | equation.Testing | | | | | | performed at [facility];[address] | | | | | | [address] [facility];[place], [place] | | | | | | [address] | | | | + + + + + + + + | Specimen | + + | | + + + + + + + | Performing | Address | City/State/Zipcode | Phone Number | | Organization | | | | + + + + + | [facility] | [address] | [place] [address] | [phone] | + + + + + CBC [...] | Absolute | performed at [facility];[address] | K/uL | LABORATORY | | | | [address];[place], [place] | | | | | | [address] | | | | + + + + + + + + | Specimen | + + | Blood | + + + + + + + | Performing | Address | City/State/Zipcode | Phone Number | | Organization | | | | + + + + + | [facility] | [address] | [place] [address] | [phone] | + + + + + Clostridium [...] at | | | | | | [facility];[address] [place] [address] | | | | | | [facility];[place] [address] | | | | + + + + + + + + | Specimen | + + | Stool - Stool | | specimen (specimen) | + + + + + + + | Performing | Address | City/State/Zipcode | Phone Number | | Organization | | | | + + + + + | [facility] | [address] | [place] [address] | [phone] | + + + + + POC Glucose (01/06/2020 9:04 PM PST) + + + + + + | Component | Value | Ref Range | Performed | Pathologist | | | | | At | Signature | + + + + + + | Glucose, | 103 (H)Comment: Testing | 65 - 99 mg/dL | [facility] | | | POC | performed at [facility];888 | | LABORATORY | | | | [address];[place] | | | | | | [address] | | | | + + + + + + + + | Specimen | + + | | + + + + + + + | Performing | Address | City/State/Zipcode | Phone Number | | Organization | | | | + + + + + | [facility] | [address] | [place] [address] | [phone] | + + + + + POC [...] | POC | performed at [facility];888 | | LABORATORY | | | | [address];[place], [place] | | | | | | [address] | | | | + + + + + + + + | Specimen | + + | | + + + + + + + | Performing | Address | City/State/Zipcode | Phone Number | | Organization | | | | + + + + + | [facility] | [address] | [place] [address] | [phone] | + + + + + POC [...] | POC | performed at [facility];[address] | | LABORATORY | | | | [address];[place], [place] | | | | | | [address] | | | | + + + + + + + + | Specimen | + + | | + + + + + + + | Performing | Address | City/State/Zipcode | Phone Number | | Organization | | | | + + + + + | [facility] | [address] | [place] [address] | [phone] | + + + + + Renal [...] | | | performed at [facility];[address] | | | | | | [address] [facility];[place], [place] | | | | | | [address] | | | | + + + + + + + + | Specimen | + + | | + + + + + + + | Performing | Address | City/State/Zipcode | Phone Number | | Organization | | | | + + + + + | [facility] | [address] [facility] | [place] [address] | [phone] | + + + + + Magnesium (01/06/2020 5:15 AM PST) + + + + + + | Component | Value | Ref Range | Performed | Pathologist | | | | | At | Signature | + + + + + + | Magnesium | 1.5 (L)Comment: Testing | 1.7 - 2.4 mg/dL | [facility] | | | | performed at [facility];[address] | | LABORATORY | | | | [address];[place], [place] | | | | | | [address] | | | | + + + + + + + + | Specimen | + + | Blood | + + + + + + + | Performing | Address | City/State/Zipcode | Phone Number | | Organization | | | | + + + + + | [facility] | [address] | [place] [address] | [phone] | + + + + + CBC [...] | Absolute | performed at [facility];[address] | K/uL | LABORATORY | | | | [address];[place], [place] | | | | | | [address] | | | | + + + + + + + + | Specimen | + + | Blood | + + + + + + + | Performing | Address | City/State/Zipcode | Phone Number | | Organization | | | | + + + + + | [facility] | [address] | [place] [address] | [phone] | + + + + + Hepatitis [...] [place] | | | | | | [address] | | | | + + + + + + + + | Specimen | + + | Blood | + + + + + + + | Performing | Address | City/State/Zipcode | Phone Number | | Organization | | | | + + + + + | [facility] | [address] | [place] [address] | [phone] | + + + + + Hepatitis [...] | | [facility], [address] | | | | | | [place] | | | | | | [address] | | | | + + + + + + + + | Specimen | + + | Blood | + + + + + + + | Performing | Address | City/State/Zipcode | Phone Number | | Organization | | | | + + + + + | [facility] | [address] | [place] [address] | [phone] | + + + + + Hepatitis [...] performed at [facility], [address] | | | | | | [facility], | | | | | | [place] [address] | | | | + + + + + + + + | Specimen | + + | Blood | + + + + + + + | Performing | Address | City/State/Zipcode | Phone Number | | Organization | | | | + + + + + | [facility] | [address] | [place] [address] | [phone] | + + + + + POC [...] | POC | performed at [facility];[address] | | LABORATORY | | | | [address];[place] | | | | | | [address] | | | | + + + + + + + + | Specimen | + + | | + + + + + + + | Performing | Address | City/State/Zipcode | Phone Number | | Organization | | | | + + + + + | [facility] | [address] | [place] [address] | [phone] | + + + + + POC Glucose (01/05/2020 5:03 PM PST) + + + + + + | Component | Value | Ref Range | Performed | Pathologist | | | | | At | Signature | + + + + + + | Glucose, | 105 (H)Comment: Testing | 65 - 99 mg/dL | [facility] | | | POC | performed at [facility];888 | | LABORATORY | | | | [address];[place], [place] | | | | | | [address] | | | | + + + + + + + + | Specimen | + + | | + + + + + + + | Performing | Address | City/State/Zipcode | Phone Number | | Organization | | | | + + + + + | [facility] | [address] | [place] [address] | [phone] | + + + + + POC [...] | POC | performed at [facility];888 | g/dL | LABORATORY | | | | [address];[place], [place] | | | | | | [address] | | | | + + + + + + + + | Specimen | + + | | + + + + + + + | Performing | Address | City/State/Zipcode | Phone Number | | Organization | | | | + + + + + | [facility] | [address] | [place] [address] | [phone] | + + + + + POC [...] | POC | performed at [facility];[address] | | LABORATORY | | | | [address];[place] | | | | | | [address] | | | | + + + + + + + + | Specimen | + + | | + + + + + + + | Performing | Address | City/State/Zipcode | Phone Number | | Organization | | | | + + + + + | [facility] | [address] | [place] [address] | [phone] | + + + + + Basic [...] 7.7 (L) | 8.5 - 10.5 | [facility] | | | | | mg/dL | LABORATORY | | + + + + + + | Estimated | 5 (L)Comment: GFR <60: | >60 | [facility] | | | GFR [...] | | | performed at [facility] | | | | | | [facility];[place], [place] | | | | | | [address] | | | | + + + + + + + + | Specimen | + + | Blood | + + + + + + + | Performing | Address | City/State/Zipcode | Phone Number | | Organization | | | | + + + + + | [facility] | [address] | [place] [address] | [phone] | + + + + + HEMODIALYSIS [...] | POC | performed at [facility];[address] | | LABORATORY | | | | [address] [facility];[place], [place] | | | | | | [address] | | | | + + + + + + + + | Specimen | + + | | + + + + + + + | Performing | Address | City/State/Zipcode | Phone Number | | Organization | | | | + + + + + | [facility] | [address] | [place] [address] | [phone] | + + + + + IR [...] and | | | brought to the blood and plasma laboratory assistant. The patient was placed supine on the blood and plasma laboratory assistant | | | table. The patient was [...] + + | Performing | Address | City/State/[facility] | Phone Number | | Organization [...] BANK | Testing performed at | | [facility] | | | COMMENT | [facility];[address] | | LABORATORY | | | | [address];[place] [address] | | | | + + + + + + + + | Specimen | + + | | + + + + + + + | Performing | Address | City/State/Zipcode | Phone Number | | Organization | | | | + + + + + | [facility] | [address] | [place] [address] | [phone] | + + + + + Type [...] + + + | BB BAND | [id number] | | [facility] | | | | | | LABORATORY | | + + + + + + | UNIT # | [id number] | | [facility] | | | | [...] | | | RESULT | performed at [facility];[address] | | LABORATORY | | | | [address];[place], [place] | | | | | | [address] | | | | + + + + + + + + | Specimen | + + | Blood | + + + + + + + | Performing | Address | City/State/Zipcode | Phone Number | | Organization | | | | + + + + + | [facility] | [address] | [place] [address] | [phone] | + + + + + Ferritin (01/05/2020 8:25 AM PST) + + + + + + | Component | Value | Ref Range | Performed | Pathologist | | | | | At | Signature | + + + + + + | Ferritin | 237Comment: Testing | 11 - 450 ng/mL | [facility] | | | | performed at [facility], [address] | | LABORATORY | | | | [address], | | | | | | [place] [address] | | | | + + + + + + + + | Specimen | + + | Blood | + + + + + + + | Performing | Address | City/State/Zipcode | Phone Number | | Organization | | | | + + + + + | [facility] | [address] | [place] [address] | [phone] | + + + + + Iron [...] | | | Saturation | performed at [facility], [address] | | LABORATORY | | | | [address], | | | | | | [place] [address] | | | | + + + + + + + + | Specimen | + + | Blood | + + + + + + + | Performing | Address | City/State/Zipcode | Phone Number | | Organization | | | | + + + + + | [facility] | [address] | [place] [address] | [phone] | + + + + + POC [...] | POC | performed at [facility];[address] | | LABORATORY | | | | [address];[place], [place] | | | | | | [address] | | | | + + + + + + + + | Specimen | + + | | + + + + + + + | Performing | Address | City/State/Zipcode | Phone Number | | Organization | | | | + + + + + | [facility] | [address] | [place] [address] | [phone] | + + + + + POC [...] | POC | performed at [facility];[address] | | LABORATORY | | | | [address];[place] | | | | | | [address] | | | | + + + + + + + + | Specimen | + + | | + + + + + + + | Performing | Address | City/State/Zipcode | Phone Number | | Organization | | | | + + + + + | [facility] | [address] | [place] [address] | [phone] | + + + + + [place] [...] Testing | 1.7 - 2.4 mg/dL | [facility] | | | | performed at [facility], [address] | | LABORATORY | | | | [address], | | | | | | [place] [address] | | | | + + + + + + + + | Specimen | + + | Blood | + + + + + + + | Performing | Address | City/State/Zipcode | Phone Number | | Organization | | | | + + + + + | [facility] | [address] | [place] [address] | [phone] | + + + + + Comprehensive [...] | | | | | | [facility] traceable | | | | | | equation.Testing | | | | | | performed at [facility];[address] | | | | | | [facility];[place], [place] | | | | | | [address] | | | | + + + + + + + + | Specimen | + + | Blood | + + + + + + + | Performing | Address | City/State/Zipcode | Phone Number | | Organization | | | | + + + + + | [facility] | [address] | [place] [address] | [phone] | + + + + + CBC [...] g/dL | LABORATORY | | | | L/RN/8RP,[id number],LP | | | | | |EMORY L/RN/8RP,0705,[id number],LP | | | | | | | | | | + + + + + + | Hematocrit | 20.5 (LL)Comment: RESULT | 39.0 - 50.0 % | [facility] | | | | READ BACK BY:CARLOS MANUEL | | LABORATORY | | | | L/RN/8RP,0705,[id number],LP | | | | | |CARLOS MANUEL L/RN/8RP,0705,[id number],LP | | | | | | | [...] performed at [facility], [address] | K/uL | LABORATORY | | | | [address], | | | | | | [place] [address] | | | | + + + + + + + + | Specimen | + + | Blood | + + + + + + + | Performing | Address | City/State/Zipcode | Phone Number | | Organization | | | | + + + + + | [facility] | [address] | [place] [address] | [phone] | + + + + + POC Glucose (01/05/2020 3:43 AM PST) + + + + + + | Component | Value | Ref Range | Performed | Pathologist | | | | | At | Signature | + + + + + + | Glucose, | 157 (H)Comment: Testing | 65 - 99 mg/dL | [facility] | | | POC | performed at [facility];[address] | | LABORATORY | | | | [address];[place] | | | | | | [address] | | | | + + + + + + + + | Specimen | + + | | + + + + + + + | Performing | Address | City/State/Zipcode | Phone Number | | Organization | | | | + + + + + | [facility] | [address] | [place] [address] | [phone] | + + + + + Creatinine, Urine, Random (01/05/2020 1:21 AM PST) + + + + + + | Component | Value | Ref Range | Performed | Pathologist | | | | | At | Signature | + + + + + + | Creatinine, | 78.7Comment: NO NORMAL | mg/dL | [facility] | | | random | RANGE ESTABLISHEDTesting | | LABORATORY | | | urine | performed at [facility], [address] | | | | | [address], | | | | | | [place] [address] | | | | + + + + + + + + | Specimen | + + | | + + + + + + + | Performing | Address | City/State/Zipcode | Phone Number | | Organization | | | | + + + + + | [facility] | [address] | [place] [address] | [phone] | + + + + + Sodium, [...] performed at [facility], [address] | | | | | [address] [facility], | | | | | | [place] [address] | | | | + + + + + + + + | Specimen | + + | Urine - Urine | | specimen (specimen) | + + + + + + + | Performing | Address | City/State/Zipcode | Phone Number | | Organization | | | | + + + + + | [facility] | [address] | [place] [address] | [phone] | + + + + + Protein/Creatinine Ratio, Urine (01/05/2020 1:21 AM PST) + + + + + + | Component | Value | Ref Range | Performed | Pathologist | | | | | At | Signature | + + + + + + | PRO/CREA | 3.736Comment: Testing | | [facility] | | | RATIO,URINE | performed at [facility], [address] | | LABORATORY | | | | [address], | | | | | | [place] [address] | | | | + + + + + + + + | Specimen | + + | Urine - Urine | | specimen (specimen) | + + + + + + + | Performing | Address | City/State/Zipcode | Phone Number | | Organization | | | | + + + + + | [facility] | [address] | [place] [address] | [phone] | + + + + + Protein, [...] performed at [facility], [address] | | | | | [address], | | | | | | [place] [address] | | | | + + + + + + + + | Specimen | + + | Urine - Urine | | specimen (specimen) | + + + + + + + | Performing | Address | City/State/Zipcode | Phone Number | | Organization | | | | + + + + + | [facility] | [address] | [place] [address] | [phone] | + + + + + Potassium, Urine, Random (01/05/2020 1:21 AM PST) + + + + + + | Component | Value | Ref Range | Performed | Pathologist | | | | | At | Signature | + + + + + + | Potassium, | 21Comment: NO NORMAL | mmol/L | [facility] | | | Urine | RANGE ESTABLISHEDTesting | | LABORATORY | | | | performed at [facility], [address] | | | | | [address], | | | | | | [place] [address] | | | | + + + + + + + + | Specimen | + + | Urine - Urine | | specimen (specimen) | + + + + + + + | Performing | Address | City/State/Zipcode | Phone Number | | Organization | | | | + + + + + | [facility] | [address] | [place] [address] | [phone] | + + + + + Urinalysis [...] - 1.030 | [facility] | | | [place], | | | LABORATORY | | | [...] | | | | | Urine | Blvd;[place] [address] | | | | + + + + + + + + | Specimen | + + | Urine - Urine | | specimen (specimen) | + + + + + + + | Performing | Address | City/State/Zipcode | Phone Number | | Organization | | | | + + + + + | [facility] | [address] | [place] [address] | [phone] | + + + + + Eosinophil Smear, Urine (01/05/2020 1:20 AM PST) + + + + + + | Component | Value | Ref Range | Performed | Pathologist | | | | | At | Signature | + + + + + + | Eosinophils | RARE EOSINOPHIL SEEN ON | <1 % | [facility] | | | | SCAN BUT NOT INCLUDED IN | | LABORATORY | | | | THE 100 WBC | | | | | | DIFFERENTIAL. (<1% | | | | | | EOSINOPHILS)Comment: | | | | | | Testing performed at | | | | | | [facility], [address] | | | | | [address], [place], [place] | | | | | | [address] | | | | + + + + + + + + | Specimen | + + | Urine - Urine | | specimen (specimen) | + + + + + + + | Performing | Address | City/State/Zipcode | Phone Number | | Organization | | | | + + + + + | [facility] | [address] | [place] [address] | [phone] | + + + + + Basic [...] | | | performed at [facility];[address] | | | | | | [address];[place] | | | | | | [address] | | | | + + + + + + + + | Specimen | + + | Blood | + + + + + + + | Performing | Address | City/State/Zipcode | Phone Number | | Organization | | | | + + + + + | [facility] | [address] | [place] [address] | [phone] | + + + + + ECG [...] | | | | | ONLY, -COMPUTER ([id number]), | | | | | | news editor Gideon Montano | | | | [...] [facility] | | | | performed at [facility];[address] | | LABORATORY | | | | [address];[place], [place] | | | | | | [address] | | | | + + + + + + + + | Specimen | + + | | + + + + + + + | Performing | Address | City/State/Zipcode | Phone Number | | Organization | | | | + + + + + | [facility] | [address] | [place] [address] | [phone] | + + + + + Comprehensive [...] | | | performed at [facility] | | | | | | [facility];[place], [place] | | | | | | [address] | | | | + + + + + + + + | Specimen | + + | Blood | + + + + + + + | Performing | Address | City/State/Zipcode | Phone Number | | Organization | | | | + + + + + | [facility] | [address] | [place] [address] | [phone] | + + + + + CBC [...] | Absolute | performed at [facility];[address] | K/uL | LABORATORY | | | | [facility];[place], [place] | | | | | | [address] | | | | + + + + + + + + | Specimen | + + | Blood | + + + + + + + | Performing | Address | City/State/Zipcode | Phone Number | | Organization | | | | + + + + + | [facility] | [address] | [place] [address] | [phone] | + + + + + documented [...] | | | | AC, NPO, Daytime 8254-9312 Use | | | | | | | NIGHT DOSE for doses scheduled: | | | | | | | HS, 3AM, Nighttime 7721-4880 | | | | | | | [...]
--- OUTSIDE RECORDS SUMMARY | ~2020-07-31 | XMS | Encounter Summary ---
Demographics + + + | Address | [address] | | | [place] [address] | + + + | Home Phone [...] Team Providers + +------+ + | Care Merchandise Executive Name | Role | Phone | + [...] + + | 12/13/ | Documentati | [facility] | [place], | Results (12/11/19) | | 2020 | on | NEPHROLOGY YAIMA | Rayne Humphrey | | | | | [address] | [employer] Thread Machine Operator | | | | | [address] [facility] [place] | | | | | | [address] | | | | | | [phone] | | | +--------+ + + + [...] | | | | | | [place] [address] | | | | | | [phone] | | | | | | | [...]
--- OUTSIDE RECORDS SUMMARY | ~2020-07-31 | XMS | Encounter Summary ---
Demographics + + + | Address | [address] | | | [place] [address] | + + + | Home Phone [...] Team Providers + +------+ + | Care Cigarette Seller Name | Role | Phone | + [...] | | | (chronic | [place], | [place], [place] | | | | | kidney | [place] [address] | [address] | | | | | disease) | Phone: | Phone: | | | | | stage 5, GFR | [phone] | [phone] | | | | | less than | Fax: | Fax: | | | | | 15 ml/min | [phone] | [phone] | | | | | (HCC) | [...] + + | 12/21/ | Office | [facility] | Elpidio Gunter MD | CKD (chronic kidney | | 2020 | Visit | VASCULAR SURGERY | [address] | disease) stage 5, | | | | [address] | [place], [place] | GFR less than 15 | | | | [place] | [address] | ml/min (HCC) | | | | [address] | [phone] | (Primary Dx) | | | | [phone] | | | +--------+---------+ + + + [...] kidney disease) stage 4, GFR 15-29 ml/min ([facility]) Convulsive disorder (HCC) DM (diabetes [...] CV: No peripheral edema, rate regular SKIN: [place], warm, dry without rash/lesion MS: ROM not [...] | | | | | | [place] [address] | | | | | | [phone] | | | | | | | | +--------+---------+ + + + documented as of this encounter Visit Diagnoses + + | Diagnosis | + + | CKD (chronic kidney disease) stage 5, GFR less than 15 ml/min (HCC) - Primary Chronic | | kidney disease, Stage V | + + documented in this encounter"
--- OUTSIDE RECORDS SUMMARY | ~2020-07-31 | XMS | Encounter Summary ---
Demographics + + + | Address | [address] | | | [place] [address] | + + + | Home Phone [...] Team Providers + +------+ + | Care Fiber Optic Central Office Installer Name | Role | Phone | + [...] | | | stage 5, GFR | [address] | | | | | | less than | Phone: | | | | | | 15 ml/min | [phone] | | | | | | (HCC) | Fax: | | | | | | Procedures | [phone] | | | | | | VAS [...] | | | | | disease) | [place], [place] | | | | | | stage 5, GFR | [address] | | | | | | less than | Phone: | | | | | | 15 ml/min | [phone] | | | | | | ([facility]) | Fax: | | | | | | Procedures | [phone] | | | | | | VAS [...] + + | 12/29/ | Hospital | [facility] | | CKD (chronic kidney | | 2020 | Encounter | VASCULAR SURGERY | | disease) stage 5, | | | | ULTRASOUND [address] | | GFR less than 15 | | | | [address] [place] [address] | | ml/min ([facility]) | | | | [place], [place] | | | | | | [address] | | | | | | [phone] | | | +--------+ + + + [...] | | | | | | [place] [address] | | | | | | [phone] | | | | | | | [...]
--- OUTSIDE RECORDS SUMMARY | ~2020-07-31 | XMS | Encounter Summary ---
Demographics + + + | Address | [address] | | | [place] [address] | + + + | Home Phone [...] Author + + + | Author | [facility] | | | and [place] | + + + | Organization | [facility] [...] Team Providers + +------+ + | Care Pallet Stone Inserter Name | Role | Phone | + +------+ + | Yrn Buckley MD | PCP | | + +------+ + Encounter Details +--------+ + + + + | Date | Type | Department | Care Team | Description | +--------+ + + + + | 01/03/ | Orders Only | [facility] | Cirilo Tijerina DNP | CKD (chronic kidney | | 2020 | | VASCULAR SURGERY | [address] | disease) requiring | | | | [address] [place] | [place], [place] | chronic dialysis | | | | [place], [place] | [address] | (HCC) (Primary Dx) | | | | [address] | | | | | | [phone] | | | +--------+ + + + [...] | | | | | | EMI [address] | | | | | | [phone] | | | | | | (Fax) | | +--------+---------+ + + + documented as of this encounter Visit Diagnoses + + | Diagnosis | + + | CKD (chronic kidney disease) requiring chronic dialysis (HCC) - Primary End stage | | renal disease | + + documented in this encounter"
--- OUTSIDE RECORDS SUMMARY | ~2020-07-31 | XMS | Encounter Summary ---
Demographics + + + | Address | [address] | | | [place] [address] | + + + | Home Phone [...] Team Providers + +------+ + | Care Music Composition Teacher Name | Role | Phone | [...] | | | | | requiring | [address] | | | | | | chronic | Phone: | | | | | | dialysis | [phone] | | | | | | ([facility]) [facility] | Fax: | | | | | | (arterioveno | [phone] | | | | | | us [...] | | | | | disease) | [place], [place] | | | | | | requiring | [address] | | | | | | chronic | Phone: | | | | | | dialysis | [phone] | | | | | | ([facility]) [facility] | Fax: | | | | | | (arterioveno | [phone] | | | | | | us [...] + + | 02/25/ | Hospital | [facility] | | CKD (chronic kidney | | 2019 | Encounter | VASCULAR SURGERY | | disease) requiring | | | | ULTRASOUND [address] | | chronic dialysis | | | | [address] | | (HCC); [facility] | | | | [place] | | (arteriovenous | | | | [address] | | fistula) ([facility]) | | | | [phone] | | | +--------+ + + + [...] | | | | | | EMI [address] | | | | | | [phone] | | | | | | | [...] section. | | | | | dialysis ([facility]) [facility] | | | | | | (arteriovenous | | | | | | fistula) ([facility]) | | + +--------+ + [...]
[~2020-07-31 21:09] MED LIST changes: +ZOFRAN4 MG PO
--- OUTSIDE RECORDS SUMMARY | 2020-07-31 21:12 | XMS ---
PreManage Notification: CELY PALMER Security Hosiery Operator Events No recent Security Events currently on file CRITERIA MET - Group Notification - [facility] - Has Care Guidelines CARE PROVIDERS MOLLY YAÑEZ Internal Medicine 10/19/2018-Current PHONE: Unknown Esperanza has no Care Guidelines for this patient. Care History Medical/Surgical 11/14/2019 [facility] Patient stated he will make sure repeat labs are done for Dr. Fish per ED discharge instructions and will schedule follow up appointments with him and Dr. Yañez. 10/19/2018 [facility] - Patient is currently established with [facility]. If patient is seen in the ED during business hours. Please contact [facility] at [facility]. Care Recommendation: If this patient has had 5 or more Emergency Department visits in the last 12 months.\T\nbsp; Patient will require education on the scope and purpose of the ED as an acute care provider not a Primary Care Provider and should not be utilized for chronic conditions.\T\nbsp; These are guidelines and the provider should exercise clinical judgment when providing care. E.D. VISIT COUNT (12 MO.) [facility] TOTAL 3 NOTE: Visits indicate total known visits. ED/UCC VISIT TRACKING (12 MO.) 07/31/2020 21:09 [facility] [place] TYPE: Emergency COMPLAINT: - RT HIP PAIN,SWOLLEN FEET [facility] [place] [facility] DIAGNOSES: - Acute kidney failure, unspecified - Abnormal Lab 11/13/2019 17:58 [facility] [place] TYPE: Emergency COMPLAINT: - KIDNEY PROBLEM DIAGNOSES: - alf (current) use of insulin - Personal history of nicotine dependence - Other cold header operator (current) drug therapy - Type 2 diabetes mellitus with diabetic chronic kidney disease - Chronic kidney disease, unspecified - Nausea with vomiting, unspecified - Hypertensive chronic kidney disease with stage 1 through stag INPATIENT VISIT TRACKING (12 MO.) 01/04/2020 18:46 [facility] TYPE: Internal Medicine DIAGNOSES: - End stage renal disease - Other specified diabetes mellitus with diabetic neuropathy, u - Other specified personal risk factors, not elsewhere classifi - Acute kidney failure, unspecified - History of falling - Type 2 diabetes mellitus with diabetic nephropathy - can intake worker (current) use of insulin - Unspecified kidney failure - Other disorders of plasma-protein metabolism, not elsewhere c - 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
[2020-07-31] MEDS ORDERED: PRINIVIL10 MG PO (21:29)
== END 2020-07-31 23:33 | disposition home or self-care (01) ==
LOC: ED 21:09
DX: R60.0 Localized edema (principal); G89.29 Other chronic pain; M25.571 Pain in right ankle and joints of right foot; M25.572 Pain in left ankle and joints of left foot; E11.9 Type 2 diabetes mellitus without complications; I10 Essential (primary) hypertension; Z87.891 Personal history of nicotine dependence; Z79.899 Other long term (current) drug therapy; Z79.4 Long term (current) use of insulin
CPT/HCPCS: 73502; 93971; 99284-25

== ENCOUNTER 2020-08-09 15:34 | Emergency (ER) | payer OTHER | END 2020-08-09 16:35 | disposition home or self-care (01) | LOC: ED 15:34 | DX: L02.811 Cutaneous abscess of head [any part, except face] (principal); L02.211 Cutaneous abscess of abdominal wall; E11.9 Type 2 diabetes mellitus without complications; I10 Essential (primary) hypertension; Z87.891 Personal history of nicotine dependence; Z79.899 Other long term (current) drug therapy; Z79.4 Long term (current) use of insulin ==

== ENCOUNTER 2020-08-10 10:49 | Emergency (ER) | payer OTHER ==
[~2020-08-10] VITALS: Ht 182.9 cm; Wt 108.9 kg
--- OUTSIDE RECORDS SUMMARY | ~2020-08-10 | XMS | Encounter Summary ---
Demographics + + + | Address | [address] | | | [place] [address] | + + + | Home Phone | | + + + | Preferred Language | Unknown | + + + | Marital Status | Single | + + + | Restorationist Affiliation | [id number] | + + + | Race | White | + + + | Ethnic Group | Not or | + + + Author + + + | Author | [facility] | | | and [place] | + + + | Organization | [facility] | | | and [place] | + + + | Address | Unknown | + + + | Phone | Unavailable | + + + Support + + +---------+ + | Name | Relationship | Address | Phone | + + +---------+ + | Rosaura Prival | ECON | Unknown | | + + +---------+ + | Kadie Mancilla | ECON | Unknown | | + + +---------+ + Care Team Providers + +------+ + | Care Chemistry Department Chair Name | Role | Phone | + +------+ + | Yrn Buckley MD | PCP | | + +------+ + Reason for Visit + + + | Reason | Comments | + + + | Follow-up | CVC removal | + + + Encounter Details +--------+---------+ + + + | Date | Type | Department | Care Team | Description | +--------+---------+ + + + | 05/01/ | Office | [facility] | Danie Johnston MD | ESRD on dialysis | | 2020 | Visit | VASCULAR SURGERY | [address] | ([facility]) (Primary Dx); | | | | [address] [place] | [address] | AVF (arteriovenous | | | | [place], [place] | [place] [address] | fistula) ([facility]) | | | | [address] | [phone] | | | | | [phone] | | | +--------+---------+ + + + Social History + + + +--------+ + | Tobacco Use | Types | Packs/Day | Years | Date | | | | | Used | | + + + +--------+ + | Former Smoker | Cigarettes | | 30 | Quit: 03/25/2020 | + + + +--------+ + + +---+---+---+ | Smokeless Tobacco: | | | | | Never Used | | | | + +---+---+---+ + + | Comments: quit 1999 | + + + + +---------+ + | Alcohol Use | Drinks/Week | oz/Week | Comments | + + +---------+ + | Not Currently | | | none for the last 7 | | | | | years | + + +---------+ + + + + | Sex Assigned at | Date Recorded | | | | + + + | Not on file | | + + + documented as of this encounter Last Filed Vital Signs + +---------+ + + | Vital Sign | Reading | Time Taken | Comments | + +---------+ + + | Blood Pressure | 135/82 | 05/01/2020 3:24 PM | | | | | PDT | | + +---------+ + + | Pulse | 75 | 05/01/2020 3:24 PM | | | | | PDT | | + +---------+ + + | Temperature | - | - | | + +---------+ + + | Respiratory Rate | - | - | | + +---------+ + + | Oxygen Saturation | 97% | 05/01/2020 3:24 PM | | | | | PDT | | + +---------+ + + | Inhaled Oxygen | - | - | | | Concentration | | | | + +---------+ + + | Weight | - | - | | + +---------+ + + | Height | - | - | | + +---------+ + + | Body Mass Index | - | - | | + +---------+ + + documented in this encounter Patient Instructions Patient Instructions Cirilo Tijerina DNP - 05/01/2020 3:30 PM PDTTunneled Dialysis Catheter Alfredo laura Discharge Instructions 1. Leave dressing in place for 48 hours. After 48 hours, may remove the dressing and place a band-aid over the site. 2. No showering for 48 hours. No bathing, swimming, hot tubs, etc for 14 days. 3. If you notice any bleeding from site, hold pressure at site for 5 minutes, if it continu es to bleed, go to closest emergency room. 4. Monitor site for swelling, oozing, drainage, redness, and/or warmth. If you notice any of the signs, contact the vascular surgery clinic or go to the closest emergency room. What is Coronavirus? The Novel Coronavirus 2019 (COVID-19) is a new virus strain that is spread mainly from pers pj-ex-nvsjtu through respiratory droplets when an infected person coughs or sneezes. Symptom s may appear 2-14 days after exposure. Reported illnesses have ranged from mild symptoms to severe illness and for confirmed cases. Some people testing positive for COVID-19 have no symptoms at all (asymptomatic). The most common symptoms include: ? Cough ? Shortness of breath or difficulty breathing ? Fever ? Chills ? Muscle pain ? Sore throat ? New loss of taste or smell COVID-19 is most commonly spread from an infected person to others through: ? Between people who are in close contact with one another (within about 6 feet). ? Respiratory droplets produced by coughing and sneezing. These droplets can land in the mo uths or nose of people who are nearby or possibly be inhaled into the lungs. ? Touching a surface with the virus on it and then touching your mouth, nose, or eyes befor e washing your hands. How to protect yourself ? Avoid touching your eyes, nose and mouth with unwashed hands. ? Wash your hands often with soap and water for at least 20 seconds. This is especially imp ortant after blowing your nose, coughing, or sneezing; going to the bathroom; and before eat ing or preparing food. ? If soap and water are not available, use an alcohol-based hand fountain supervisor with at least 60 % alcohol covering all surfaces of your hands and rubbing them together until they feel dry. ? Cover your cough or sneeze with a tissue, then throw the tissue in the trash. (Putting a tissue on a table contaminates the surface of the table with germs.) ? Routinely disinfect frequently touched objects and surfaces, using a cleaning spray or wi pe. ? Avoid travel to high-risk countries. Non-essential travel to or through any of the countr ies for which the CDC has issued a level 2 or 3 travel health notice is discouraged. https://www.cdc.gov/coronavirus/2019-ncov/travelers/index.html ? Stay at least 6 feet away from others when in public places, do not gather in groups, sta y out of crowded places, and avoid mass gatherings to slow the spread of the virus. ? Use of a simple cloth face covering to slow the spread of the virus in public settings wh ere it's hard to stay away from others, such as in grocery stores, pharmacies, and other are as where the virus might easily spread. Cloth masks do not protect the wearer but instead h old in droplets from sneezing or coughing to prevent spreading to other people and surfaces. Cloth face coverings fashioned from household items or made at home from common materials a t low cost can be used. It is not recommended to use surgical masks or N-95 respirators. A few definitions that you should be familiar with regarding COVID-19: Quarantine is used to keep someone who might have been exposed to COVID-19 away from others . Isolation is used to separate people infected with the virus (those who are sick from COVID -19 and those with no symptoms) from people who are not infected. Both quarantine and isolation are similar that they: ? involve separation of people to protect the public ? help limit further spread of COVID-19 ? can be done voluntarily or be required by health authorities What to do if you are sick? ? If you have a fever and cough, you may have COVID-19. Notify your medical provider. ? Stay home except to get medical care (see for Home Isolation) ? Monitor your symptoms When you should seek medical evaluation and advice? ? Call 911 if you have a medical emergency such as trouble breathing, persistent pain or pr essure in the chest, and/or bluish lips or face. If you have a medical emergency and need to call 911, notify the reduction furnace operator that you have or think you might have, COVID-19. If possible, put on a facemask before medical help arrives. ? If you are 65 and older, or have underlying conditions such as , heart disease, diabetes, lung disease and weakened immune system, work with your doctor to develop a plan t o determine your health risks to COVID-19 and how to manage symptoms. If you do have symptom s, contact your doctor immediately. ? For worsening symptoms or difficulty breathing, please contact your primary care provider or consider a virtual visit. ? If you do not have a high-risk condition and your symptoms are mild, you do not need to b e evaluated in person and do not need to be tested for COVID-19. (Please see Home Quarantin e and Isolation Instructions below) ? We ask that you please avoid coming to the emergency department, unless you have a health emergency and/or you have been advised by a provider to do so. This helps prevent the risk of spreading this disease and further exposure in our community and allows us to dedicate cr itical and limited emergency resources to those who are very sick. Who should be tested? A common question right now is, Why can't I get tested? The answer: Not everyone need s to be tested. Given the short supply of testing supplies and protective equipment for our health care workers, the CDC recommends that people who are hospitalized, healthcare worker who have COVID-19 symptoms, residents in nursing facilities or skilled nursing communities or home health, or those who are high risk (older adults, chronic diseases, immunosuppressed) s hould be prioritized for testing. These recommendations may evolve to include more people ov er time, as this situation is evolving rapidly. It is not recommended to test individuals wh o do not have COVID-19 symptoms. What to do if you think you have been exposed to COVID-19? If you feel healthy but recently had close contact with a person known to have COVID-19, yo u need to self-quarantine. Follow the self-quarantine instructions listed below: ? Check your temperature twice a day ? Stay home for 14 days from the time of exposure and self-monitor for fever, cough, and sh ortness of breath. ? Contact your medical provider if your temperature is greater than 100.4 and you develop c ough or shortness of breath. ? If possible, stay away from people who are high-risk for getting very sick from COVID-19. Does this mean my family or other people I live with need to self-quarantine? Other members of the household are not required to self-quarantine, unless they have been t old by a medical professional to do so. If you develop symptoms and are suspected to have CO VID-19, members of the household will be classified as close contacts and will then need to be in self-quarantine. Please speak to your health care provider and/or health department fo r further instructions. What are the guidelines for home quarantine and home isolation? ? Restrict activities outside your home, except for seeking medical care. ? Do not go to work, another person's home, school or public areas. ? Do not use public transportation. ? Cover coughs and sneezes. ? Avoid close contact with household members. When this is not possible, stay at least 6 fe et from other people and wear a cloth face covering. During the COVD-19 pandemic, medical-gr deborah masks are reserved for healthcare workers. ? Use separate sleeping and bathroom/bathing facilities, if feasible. ? Wash your hands often with soap and water for at least 20 seconds. This is especially imp ortant after blowing your nose, coughing, or sneezing; going to the bathroom; and before eat ing or preparing your food. ? Use hand fountain supervisor if soap and water are not available. Use an alcohol-based hand sanitiz er with at least 60% alcohol, covering all surfaces of your hands and rubbing them together until they feel dry ? Cover your mouth and nose with a tissue when you cough or sneeze. Throw away used tissues in a lined trash can. Wash your hands afterwards. ? Clean and disinfect high-touch surfaces in your sick room and bathroom with a house hold disinfectant. High-touch surfaces include phones, remote controls, counters, doorknobs, tabletops, bathroom fixtures, toilets, keyboards, and bedside tables. Let someone else loretta n and disinfect surfaces in common areas, but not your bedroom and bathroom. ? Avoid sharing personal household items (dishes, drinking glasses, cups, eating utensils, towels, or bedding) with other people or pets in your home. After using these items, they sh ould be washed thoroughly with soap and water or in the control systems specialist/taras. ? Call ahead before visiting your doctor. This will help the healthcare provider's office t sara steps to keep other people from getting infected or exposed. ? If you have been tested for COVID-19, stay home until your healthcare provider contacts y ou about your test results. When should I discontinue self-quarantine? If you have tested positive for COVID-19, you can leave home after these three things have happened: ? At least 3 days (72 hours) have passed since resolution of fever (temperature less than 1 00.0F or 37.8C) without the use of fever-reducing medications (e.g. Tylenol, Ibuprofen) AND ? At least 3 days of improvement in respiratory symptoms (e.g. cough, shortness of breath) AND ? At least 10 days have passed since symptoms first appeared If you have tested positive for COVID-19 and are retested, you can leave home after these t hree things have happened: ? Resolution of fever (temperature less than 100.0F or 37.8C) without the use of fever-redu cing medications (e.g. Tylenol, Ibuprofen) AND ? Improvement in respiratory symptoms (e.g. cough, shortness of breath) AND ? Negative test results of COVID-19 from at least two consecutive samples collected 24 hrs or more apart If you are waiting for COVID-19 test results or you are symptomatic but did not require shin ting, you can leave home after the following things have happened: ? At least 3 days (72 hours) have passed since resolution of fever (temperature less than 1 00.0F or 37.8C) without the use of fever-reducing medications (e.g. Tylenol, Ibuprofen) and at least 3 days of improvement in respiratory symptoms (e.g., cough, shortness of breath), a nd at least 10 days have passed since symptoms first appeared. OR ? Two negative test results received and at least 24 hours have passed since resolution of fever (temperature less than 100.0F or 37.8C) without the use of fever-reducing medications (e.g. Tylenol, Ibuprofen). How is COVID-19 treated? Most people with COVID-19 will recover on their own. There is no specific antiviral treatm ent recommended for COVID-19 at this time. People with COVID-19 should receive supportive ca re to help relieve symptoms. For severe cases, treatment should include care to support sherly l organ functions. Additional Information For up-to-date information about coronavirus and the community public health response, visi t your local public health website. CDC: COVID-19: https://www.cdc.gov/coronavirus/2019-ncov/index.html [place] Coronavirus Advisory: https://www.[facility].org/yaaqamjw-kbd-ufmzwcra/coron avirus-advisory Virtual Visits Available https://virtual.[facility].org/ documented in this encounter Progress Notes Alyssa Johnston PA-C - 05/01/2020 3[facility] [address] [place] [address] Office: [phone] DATE OF VISIT: 05/01/2020 PATIENT NAME: Jude Henley : 1970; AGE: 49 y.o.; Sex:M PHONE NUMBER: ; (Work); (Cell) ; PHYSICIAN: Alyssa Johnston PA-C PRIMARY CARE / REFERRING PHYSICIAN: No ref. provider found / Yrn Buckley MD / [address] / [place] [address] REASON FOR EVALUATION / CHIEF COMPLAINT: Vascular Surgery Follow Up Visit for right up per chest double lumen tunneled hemodialysis catheter removal PRE-PROCEDURE DIAGNOSIS: ESRD requiring dialysis POST-PROCEDURE DIAGNOSIS: ESRD requiring dialysis PROCEDURE: Removal of right internal jugular vein tunneled hemodialysis catheter ANESTHESIA: Local anesthesia ESTIMATED BLOOD LOSS: Minimal PHYSICIAN: Alyssa Johnston PA-C INDICATION: The patient presents today for a Vascular Surgery Follow Up Visit. The patient is status post left brachiobasillic fistula creation, which was performed on 01/05/2020 with superficilizaztion on 03/29/2020. The patient is not having any pain. The patient denies fev er, wound drainage, increasing redness, pus, increasing pain, increasing swelling. Physical examination revealed surgical incision which is healing well without signs of infection. He has good thrills over the AVF site. The patient has been dialyzing successfully via the AV f istula, and the tunneled hemodialysis catheter is to be removed today. PROCEDURE IN DETAIL: The patient's right neck and chest regions were prepped and draped marielena mccann. Local anesthesia with 1% lidocaine was infiltrated around the tunneled hemodialysis catheter insertion site. Using a hemostat, the insertion site was dilated to remove the adhe obdulia and to separate the catheter cuff from the surrounding soft tissue. Using santiago press ure, the catheter was pull in a steady fashion and the tunneled hemodialysis catheter was re moved without difficulty. Santiago pressure was applied around the neck and the insertion sit e to achieve hemostasis. Pressure dressing was applied in the usual manner and the patient t olerated the procedure without complications. I was present during the entire procedure. TREATMENT DISPOSITION: Tunneled hemodialysis catheter was successfully removed in the clini c today. Instruction was given to patient to continue using his arteriovenous fistula for he modialysis. He is to keep dressing on for 2 days and avoid submerging wound for at least 2 w eeks. COMPLICATIONS: None POST-PROCEDURE CONDITION: Stable Alyssa Johnston PA-C Associated attestation - Danie Johnston MD - 05/01/2020 4:40 PM PDTI was present and supe rvised Alyssa Johnston PA-C for the procedure and I directed moderate sedation. Danie Johnston MD Vascular Surgerydocumented in this encounter Plan of Treatment +--------+---------+ + + + | Date | Type | Specialty | Care Team | Description | +--------+---------+ + + + | 09/30/ | Office | Cardiology | Aditya Monzon, | | | 2019 | Visit | | MD [address] | | | | | | [place], | | | | | | [place] [address] | | | | | | [phone] | | | | | | | | +--------+---------+ + + + documented as of this encounter Visit Diagnoses + + | Diagnosis | + + | ESRD on dialysis ([facility]) - Primary End stage renal disease | + + | AVF (arteriovenous fistula) ([facility]) Arteriovenous fistula, acquired | + + documented in this encounter Administered Medications + +--------+ +--------+------+------+ | Medication Order | MAR | Action | Dose | Rate | Site | | | Action | Date | | | | + +--------+ +--------+------+------+ | lidocaine (PF) 1% injection 10 | Given | 05/01/20 | 10 mLs | | | | mL 10 mL, Infiltration, ONCE, | | 20 4:11 | | | | | 05/01/20 at 1630, For 1 dose | | PM PDT | | | | + +--------+ +--------+------+------+ +---+---+ | | | +---+---+ documented in this encounter"
--- OUTSIDE RECORDS SUMMARY | ~2020-08-10 | XMS | Encounter Summary ---
Demographics + + + | Address | [address] | | | [place] [address] | + + + | Home Phone | | + + + | Preferred Language | Unknown | + + + | Marital Status | Single | + + + | Congregational Affiliation | 1041 | + + + | Race | White | + + + | Ethnic Group | Not or | + + + Author + + + | Author | [facility] | | | and [place] | + + + | Organization | [facility] | | | [...] Team Providers + +------+ + | Care Account Service Representative Name | Role | Phone | + +------+ + | Yrn Buckley MD | PCP | | + +------+ + Reason for Visit + +--------+ + | Reason | Onset | Comments | | | Date | | + +--------+ + | Follow-up | 02/18/ | imaging | | | 2020 | | + +--------+ + Encounter Details +--------+ + + + + | Date | Type | Department | Care Team | Description | +--------+ + + + + | 02/18/ | Telephone | [facility] | Cirilo Tijerina DNP | Follow-up (imaging ) | | 2019 | | VASCULAR SURGERY | [address] | | | | | [address] [place] | [place], [place] | | | | | [place], [place] | [address] | | | | | [address] | | | | | | [phone] | | | +--------+ + + + + Social History + + + +--------+------+ | Tobacco Use | Types | Packs/Day | Years | Date | | | | | Used | | + + + +--------+------+ | Former Smoker | Cigarettes | | | | + + + +--------+------+ + +---+---+---+ | Smokeless Tobacco: | | | | | Never Used | | | | + +---+---+---+ + + | Comments: quit 2000 | + + + + +---------+ + [...] + + documented as of this encounter Miscellaneous Notes Telephone Encounter - Rupal Black RN - 02/19/2020 8:56 AM PDTReturn call made, urszula aguirer with the patient. Jude states his transportation canceled on him last minute. Patient's appointments rescheduled to next Wednesday. elephone Encounter - Merry Medina - 02/19/2020 8:04 AM PDTShela, is calling regarding Follow-up (imaging ) and would like a call back. Additional Call Details: Requesting call back to reschedule today 02/18 and follow up If this is a symptom based call, was patient offered triage? Not Applicable If this is a symptom based call and you were unable to immediately transfer the call to a mikel varela confectionery drops machine operator was caller made aware that if at any time he feels it is an emergency they gio uld call 911 or go to the nearest emergency room? not applicable documented in this encounter Plan of Treatment +--------+---------+ + + + | Date | Type | Specialty | Care Team | Description | +--------+---------+ + + + | 09/30/ | Office | Cardiology | Aditya Monzon, | | | 2019 | Visit | | MD [address] | | | | | | [place], | | | | | | [place] [address] | | | | | | [phone] | | | | | | | | +--------+---------+ + + + documented as of this encounter Visit Diagnoses Not on filedocumented in this encounter Additional Health Concerns + + + + + | Infection | Onset Date | Last Indicated | Resolved Time | + + + + + | Clostridium | 01/09/2020 | 01/09/2020 | 04/08/2020 3:55 AM | | difficile | | | PDT | + + + + + documented as of this encounter"
--- OUTSIDE RECORDS SUMMARY | ~2020-08-10 | XMS | Encounter Summary ---
Demographics + + + | Address | [address] | | | [place] [address] | + + + | Home Phone | | + + + | Preferred Language | Unknown | + + + | Marital Status | Single | + + + | Jainism Affiliation | 1041 | + + + | Race | White | + + + | Ethnic Group | Not or | + + + Author + + + | Author | [facility] | | | and [place] | + + + | Organization | [facility] | | | [...] Team Providers + +------+ + | Care Preparer Name | Role | Phone | + +------+ + | Yrn Buckley MD | PCP | | + +------+ + Reason for Visit + +--------+ + | Reason | Onset | Comments | | | Date | | + +--------+ + | Appointment | 03/13/ | 03/13/20 cancel | | | 2020 | | + +--------+ + Encounter Details +--------+ + + + + | Date | Type | Department | Care Team | Description | +--------+ + + + + | 03/13/ | Telephone | [facility] | Elpidio Gunter MD | Appointment (03/13/20 | | 2020 | | VASCULAR SURGERY | [address] | baldev) | | | | [address] [place] | [place], [place] | | | | | [place], [place] | [address] | | | | | [address] | [phone] | | | | | [phone] | | | +--------+ + + + [...] Telephone Encounter - Rupal Black RN - 03/13/2020 1:15 PM PDTReturn call made to [facility], patient's procedure rescheduled to next Wednesday. elephone Encounter - Nay Leyva - 03/13/2020 12:2 6 PM PDTLinaluisana, is returning call for Appointment (03/13/20 cancel) and would like a call back. Additional Call Details: Returning call. Please call Ramona back at [phone]. elephone Encounter - Rupal Guerra RN - 03/13/2020 12:21 PM PDTReturn call made to [facility], had to leave message, awaiting call back from [facility] to reschedule patient. Dr Gunter and cathodic protection technician notified. Bacilio watt signed by Rupal Black RN at 03/13/2020 12:21 PM PDTTelephone Encounter - Nay Claudio - 03/13/2020 11:19 AM YORosaura, sister, is calling regarding Appointment (03/13/20 brenda schroeder) and would like a call back. Additional Call Details: Calling to cancel 03/13/20 appointment. Patient is ill. [facility] at [phone]. If this is a symptom based call, was patient offered triage? Not Applicable If this is a symptom based call and you were unable to immediately transfer the call to a mikel varela communication center coordinator was caller made aware that if at [...] | Cardiology | Aditya Monzon, | | 2019 | Visit | | MD [address] | | | | | | [place], | | | | | | [place] [address] | | | | | | [phone] | | | | | | | [...]
--- OUTSIDE RECORDS SUMMARY | ~2020-08-10 | XMS | Encounter Summary ---
Demographics + + + | Address | [address] | | | [place] [address] | + + + | Home Phone | | + + + | Preferred Language | Unknown | + + + | Marital Status | Single | + + + | Hindu Affiliation | 1041 | + + + | Race | White | + + + | Ethnic Group | Not or | + + + Author + + + | Author | [facility] | | | and [place] | + + + | Organization | [facility] | | [...] Team Providers + +------+ + | Care Electric Engine Mechanic Name | Role | Phone | + +------+ + | Yrn Buckley MD | PCP | | + +------+ + Reason for Visit +--------+ + | Reason | Comments | +--------+ + | Other | transplant team letter 06/12/20 | +--------+ + Encounter Details +--------+ + + + + | Date | Type | Department | Care Team | Description | +--------+ + + + + | 06/19/ | Documentati | [facility] | Jose, | Other (transplant | | 2019 | on | NEPHROLOGY [facility] | Rayne Humphrey | team letter | | | | [address] | Quality Control Engineering Technician | 06/12/20) | | | | [address] [place], [place] | | | | | | [address] | | | | | | [phone] | | | +--------+ + + + [...] | | | | | | [place] [address] | | | | | | [phone] | | | | | | | | +--------+---------+ + + + documented as of this encounter Visit Diagnoses Not on filedocumented in this encounter"
--- OUTSIDE RECORDS SUMMARY | ~2020-08-10 | XMS | Encounter Summary ---
Demographics + + + | Address | [address] | | | [place] [address] | + + + | Home Phone | | + + + | Preferred Language | Unknown | + + + | Marital Status | Single | + + + | Taoism Affiliation | 1041 | + + + | Race | White | + + + | Ethnic Group | Not or | + + + Author + + + | Author | [facility] | | | and [place] | + + + | Organization | [facility] | | | [...] Team Providers + +------+ + | Care Laborer Filter Plant Name | Role | Phone | + +------+ + | Yrn Buckley MD | PCP | | + +------+ + Reason for Visit +--------+--------+ + | Reason | Onset | Comments | | | Date | | +--------+--------+ + | Other | 02/11/ | IV Feraheme requires PA | | | 2020 | | +--------+--------+ + | Other | 12/25/ | IV Feraheme authorized from 12/19/19 - 03/18/20 | | | 2020 | | +--------+--------+ + Encounter Details +--------+ + + + + | Date | Type | Department | Care Team | Description | +--------+ + + + + | 12/19/ | Telephone | [facility] | Kimberli Sandra | Other (IV Feraheme | | 2019 | | RON Ruiz RN | requires PA); Other | | | | [address] | | (IV Feraheme | | | | [address] [place], [place] | | authorized from | | | | [address] | | 12/19/19 - 03/18/20) | | | | [phone] | | | +--------+ + + + [...] this encounter Miscellaneous Notes Telephone Encounter - Kimberli Sandra RN - 12/25/2019 12:20 PM PSTReceived [facility] from [facility] Q[facility] (Feraheme) is authorized from 12/19/19-03/18/20. Authorization # [id number].Electr onically signed by Kimberli Sandra RN at 12/25/2019 12:22 PM PSTTelephone Encounter - Milagro Barr Bullard Operator - 12/19/2019 3:44 PM PSTCalled patient to inform of thi s. He verbalized understanding and had no further questions at this time.Electronically sign ed by Milagro Garcia Bullard Operator at 12/19/2019 3:45 PM PSTTelephone Encounter - Kimberli Sandra RN - 12/19/2019 9:23 AM PSTCalled [facility] (P#[phone]) and spoke with Maggie. Provided CPT code Q0138 for outpatient IV Feraheme (510mg one dose only) and she sa id it does require a prior authorization. Call was transferred to [place] with medical intake . Provided Dr Rothman's NPI and that the medication would be administered at outpatient, off c ampus location of [facility]. She requested chart notes to be faxed to the at [phone]. Chart notes and recent labs printed and faxed. Fax confirmation received. They said it could take up to 14 days to get the authorization. documented in this encounter Plan of Treatment +--------+---------+ + + + | Date | Type | Specialty | Care Team | Description | +--------+---------+ + + + | 09/30/ | Office | Cardiology | Aditya Monzon, | | | 2019 | Visit | | MD [address] | | | | | | [place] | | | | | | [place] [address] | | | | | | [phone] | | | | | | | | +--------+---------+ + + + documented as of this encounter Visit Diagnoses Not on filedocumented in this encounter"
--- OUTSIDE RECORDS SUMMARY | ~2020-08-10 | XMS | Encounter Summary ---
Demographics + + + | Address | [address] | | | [place] [address] | + + + | Home Phone | | + + + | Preferred Language | Unknown | + + + | Marital Status | Single | + + + | Mormon Affiliation | 1041 | + + + | Race | White | + + + | Ethnic Group | Not or | + + + Author + + + | Author | [facility] | | | and [place] | + + + | Organization | [facility] | | | and [place] | + + + | Address | Unknown | + + + | Phone | Unavailable | + + + Support + + +---------+ + | Name | Relationship | Address | Phone | + + +---------+ + | Rosaura Privjimmy | ECON | Unknown | | + + +---------+ + | Kadie Maniclla | ECON | Unknown | | + + +---------+ + Care Team Providers + +------+ + | Care Environmental Health Sanitarian Name | Role | Phone | + +------+ + | Yrn Buckley MD | PCP | | + +------+ + Reason for Referral Evaluate & Treat (Emergency) +--------+ + + + + + | Status | Reason | Specialty | Diagnoses / | Referred By | Referred To | | | | | Procedures | Contact | Contact | +--------+ + + + + + | Closed | Specialty | Vascular | Diagnoses | [place], | [facility] | | Services | Surgery | Essential | Eros Simon MD | Surgery | | | Required | | hypertension | [address] | [address] | | | | | CKD | [address] [place] [address] | [address] | | | | | (chronic | [place], | [place], [place] | | | | | kidney | [place] [address] | [address] | | | | | disease) | Phone: | Phone: | | | | | stage 5, GFR | [phone] | [phone] | | | | | less than | Fax: | Fax: | | | | | 15 ml/min | [phone] | [phone] | | | | | (HCC) | | | | | | | Nephrotic | | | | | | | range | | | | | | | proteinuria | | | +--------+ + + + + + Encounter Details +--------+ + + + + | Date | Type | Department | Care Team | Description | +--------+ + + + + | 12/13/ | Orders Only | [facility] | Eros Rothman MD | Essential | | 2020 | | NEPHROLOGY [place] | [address] [place] | hypertension | | | | [address] [place] | [address] [place], [place] | (Primary Dx); CKD | | | | [address] [place], [place] | [address] | (chronic kidney | | | | [address] | | disease) stage 5, | | | | [phone] | | GFR less than 15 | | | | | | ml/min (HCC); | | | | | | Nephrotic range | | | | | | proteinuria | +--------+ + + + + Social [...] | | 2019 | Visit | | [address] | | | | | | [place], | | | | | | [place] [address] | | | | | | [phone] | | | | | | | | +--------+---------+ + + + + +---------+--------+ + + | Name | Type | Priori | Associated Diagnoses | Order Schedule | | | | ty | | | + +---------+--------+ + + | Hepatitis Be Ag | Lab | Routin | Essential | Expected: | | | | e | hypertension CKD | 12/14/2019, Expires: | | | | | (chronic kidney | 12/13/2020 | | | | | disease) stage 5, | | | | | | GFR less than 15 | | | | | | ml/min (HCC) | | | | | | Nephrotic range | | | | | | proteinuria | | + +---------+--------+ + + | Hepatitis B Surface | Lab | Routin | Essential | Expected: | | Ab, Quant | | e | hypertension CKD | 12/14/2019, Expires: | | | | | (chronic kidney | 12/13/2020 | | | | | disease) stage 5, | | | | | | GFR less than 15 | | | | | | ml/min (HCC) | | | | | | Nephrotic range | | | | | | proteinuria | | + +---------+--------+ + + | Hepatitis B Core Ab, | Lab | Routin | Essential | Expected: | | Total | | e | hypertension CKD | 12/14/2019, Expires: | | | | | (chronic kidney | 12/13/2020 | | | | | disease) stage 5, | | | | | | GFR less than 15 | | | | | | ml/min (HCC) | | | | | | Nephrotic range | | | | | | proteinuria | | + +---------+--------+ + + | XR Chest 2 Vws | Imaging | Routin | Essential | Expected: | | | | e | hypertension CKD | 12/13/2019, Expires: | | | | | (chronic kidney | 12/13/2020 | | | | | disease) stage 5, | | | | | | GFR less than 15 | | | | | | ml/min ([facility]) | | | | | | Nephrotic range | | | | | | proteinuria | | + +---------+--------+ + + | Hepatitis B Surface | Lab | Routin | Essential | Ordered: 12/15/2019 | | Ag | | e | hypertension CKD | | | | | | (chronic kidney | | | | | | disease) stage 5, | | | | | | GFR less than 15 | | | | | | ml/min ([facility]) | | | | | | Nephrotic range | | | | | | proteinuria | | + +---------+--------+ + + + + +--------+ + + | Name | Type | Priori | Associated Diagnoses | Order Schedule | | | | ty | | | + + +--------+ + + | Ambulatory Referral | Outpatient | STAT | Essential | Ordered: 12/13/2019 | | to [facility] | Referral | | hypertension CKD | | | Surgery | | | (chronic kidney | | | | | | disease) stage 5, | | | | | | GFR less than 15 | | | | | | ml/min ([facility]) | | | | | | Nephrotic range | | | | | | proteinuria | | + + +--------+ + + documented as of this encounter Visit Diagnoses + + | Diagnosis | + + | Essential hypertension - Primary Unspecified essential hypertension | + + | CKD (chronic kidney disease) stage 5, GFR less than 15 ml/min (HCC) Chronic kidney | | disease, Stage V | + + | Nephrotic range proteinuria Proteinuria | + + documented in this encounter"
--- OUTSIDE RECORDS SUMMARY | ~2020-08-10 | XMS | Encounter Summary ---
Demographics + + + | Address | [address] | | | [place] [address] | + + + | Home Phone | | + + + | Preferred Language | Unknown | + + + | Marital Status | Single | + + + | Uatsdin Affiliation | 1041 | + + + | Race | White | + + + | Ethnic Group | Not or | + + + Author + + + | Author | [facility] | | | and [place] | + + + | Organization | [facility] | | | and [place] | + + + | Address | Unknown | + + + | Phone | Unavailable | + + + Support + + +---------+ + | Name | Relationship | Address | Phone | + + +---------+ + | Rosaura Prival | ECON | Unknown | | + + +---------+ + | Kadei Mancilla | ECON | Unknown | | + + +---------+ + Care Team Providers + +------+ + | Care Javascript Software Engineer Name | Role | Phone | + +------+ + | Yrn Buckley MD | PCP | | + +------+ + Reason for Visit + +--------+ + | Reason | Onset | Comments | | | Date | | + +--------+ + | Abnormal Lab | 11/13/ | | | | 2020 | | + +--------+ + Encounter Details +--------+ + + + + | Date | Type | Department | Care Team | Description | +--------+ + + + + | 11/13/ | Telephone | [facility] | Eros Rothman MD | Abnormal Lab | | 2020 | | [facility] | [address] [place] | | | | | [address] [place] | [address] [place], [place] | | | | | [address] [place], [place] | [id number] | | | | | [address] | | | | | | [phone] | | | +--------+ + + + [...] this encounter Miscellaneous Notes Telephone Encounter - Eros Rothman MD - 11/13/2019 8:38 PM PSTI received 2 calls from [facility] at [facility]. Pt with infrequent nausea x1 vomiting. None now. Renal labs slightly better vs 11/10/19. Renal U/S with no evidence of obstruction. He will be sent back to home. He will take his meds as prescribed; he will restrict his diet as ordered. He will let us and/or his PCP know of any new symptoms or concerns. He will have the labs for us as ordered for 2 weeks from now. I will see him with another set of labs as ordered in 4 weeks. documented in this encounter Plan of Treatment +--------+---------+ + + + | Date | Type | Specialty | Care Team | Description | +--------+---------+ + + + | 09/30/ | Office | Cardiology | Aditya Monzon, | | 2019 | Visit | | MD [address] | | | | | | [place], | | | | | | [place] [address] | | | | | | [phone] | | | | | | | | +--------+---------+ + + + documented as of this encounter Visit Diagnoses Not on filedocumented in this encounter"
--- OUTSIDE RECORDS SUMMARY | ~2020-08-10 | XMS | Encounter Summary ---
Demographics + + + | Address | [address] | | | [place] [address] | + + + | Home Phone | | + + + | Preferred Language | Unknown | + + + | Marital Status | Single | + + + | Alevism Affiliation | 1041 | + + + | Race | White | + + + | Ethnic Group | Not or | + + + Author + + + | Author | [facility] | | | and [place] | + + + | Organization | [facility] | | [...] Team Providers + +------+ + | Care Bioengineer Name | Role | Phone | + +------+ + | Yrn Buckley MD | PCP | | + +------+ + Reason for Visit +--------+--------+ + | Reason | Onset | Comments | | | Date | | +--------+--------+ + | Other | 12/08/ | Appointment reminder call | | | 2019 | | +--------+--------+ + Encounter Details +--------+ + + + + | Date | Type | Department | Care Team | Description | +--------+ + + + + | 12/08/ | Telephone | [facility] | Eros Rothman MD | Other (Appointment | | 2020 | | NEPHROLOGY [place] | [address] [place] | reminder call) | | | | [address] [place] | [address] [facility] [place] | | | | | [address] [facility] [place] | [id number] | | | | | [address] | | | | | | [phone] | | | +--------+ + + + [...] this encounter Miscellaneous Notes Telephone Encounter - Milagro Garcia Swimming Pool Salesperson - 12/08/2019 2:02 PM PSTThis call is to remind patient of appointment and lab work needed. Left message with clinic name and number for him to call back with any questions. Labs faxed to [facility] confirmation rec eived P STdocumented in this encounter Plan of Treatment +--------+---------+ + + + | Date | Type | Specialty | Care Team | Description | +--------+---------+ + + + | 09/30/ | Office | Cardiology | Aditya Monzon, | | 2019 | Visit | | MD [address] | | | | | | [place], | | | | | | [place] [address] | | | | | | [phone] | | | | | | | | +--------+---------+ + + + documented as of this encounter Visit Diagnoses Not on filedocumented in this encounter"
--- OUTSIDE RECORDS SUMMARY | ~2020-08-10 | XMS | Encounter Summary ---
Demographics + + + | Address | [address] | | | [place] [address] | + + + | Home Phone | | + + + | Preferred Language | Unknown | + + + | Marital Status | Single | + + + | Pentecostal Affiliation | 1041 | + + + | Race | White | + + + | Ethnic Group | Not or | + + + Author + + + | Author | [facility] | | | and [place] | + + + | Organization | [facility] | | | [...] Team Providers + +------+ + | Care Fruit Or Nut Farm Worker Name | Role | Phone | + +------+ + | Yrn Buckley MD | PCP | | + +------+ + Reason for Visit +---------+ + | Reason | Comments | +---------+ + | Results | 01/02/20 | +---------+ + Encounter Details +--------+ + + + + | Date | Type | Department | Care Team | Description | +--------+ + + + + | 01/03/ | Documentati | [facility] | Garcia, | Results (01/02/20) | | 2020 | on | NEPHROLOGY [facility] | Rayne Humphrey | | | | | [address] [place] | Monitoring Tech | | | | | [address] [facility] [place] | | | | | | [address] | | | | | | [phone] | | | +--------+ + + + [...] | | | | | | [place] [address] | | | | | | [phone] | | | | | | | | +--------+---------+ + + + documented as of this encounter Procedures + +--------+ + + + | Procedure Name | Priori | Date/Time | Associated Diagnosis | Comments | | | ty | | | | + +--------+ + + + | CBC NO DIFFERENTIAL | Routin | 01/02/2020 | | Results for this | | | e | | | procedure are in the | | | | | | results section. | + +--------+ + + + | RENAL FUNCTION PANEL | Routin | 01/02/2020 | | Results for this | | | e | | | procedure are in the | | | | | | results section. | + +--------+ + + + documented in this encounter Results CBC with Manual Differential (01/02/2020) + + + + + + | Component | Value | Ref Range | Performed | Pathologist | | | | | At | Signature | + + + + + + | WBC | 8.1 | 4.5 - 11.0 | | | + + + + + + | Red Blood | 2.60 (A) | 4.30 - 5.70 | | | | Cells | | M/uL | | | + + + + + + | Hemoglobin | 7.5 (A) | 13.5 - 18.0 | | | + + + + + + | Hematocrit, | 22.2 (A) | 41.0 - 50.0 % | | | | POC | | | | | + + + + + + | MCV | 85.4 | 81.0 - 99.0 fL | | | + + + + + + | MCH | 29.0 | 27.0 - 33.0 pg | | | + + + + + + | MCHC | 34.0 | 30.0 - 36.0 | | | | | | g/dL | | | + + + + + + | Platelet | 218 | 140 - 440 | | | | Count | | | | | | Plasma | | | | | + + + + + + | RDW | 14 | 10.5 - 15.0 | | | + + + + + + | BAL | 77 | 39 - 80 % | | | | Neutrophils | | | | | | % | | | | | + + + + + + | % | 12.4 (A) | 24 - 44 | | | | Lymphocytes | | | | | + + + + + + | Monocyte % | 6.3 | 0 - 12 | | | + + + + + + | BAL | 4 | 0 - 6 % | | | | Eosinophils | | | | | | % | | | | | + + + + + + | % | 1 | 0 - 2 % | | | | Basophils, | | | | | | Body Fluid | | | | | + + + + + + + + | Specimen | + + | Blood | + + Renal Function Panel (01/02/2020) + + + + + + | Component | Value | Ref Range | Performed | Pathologist | | | | | At | Signature | + + + + + + | Na | 137 | 132 - 143 | | | | | | mmol/L | | | + + + + + + | K | 4.2 | 3.6 - 5.1 | | | | | | mmol/L | | | + + + + + + | Cl | 99 | 95 - 112 mmol/L | | | + + + + + + | CO2 | 19 | 19 - 31 mmol/L | | | + + + + + + | Anion Gap | 23 (A) | 7 - 21 mmol/L | | | + + + + + + | Glucose | 146 (A) | 70 - 100 mg/dL | | | + + + + + + | BUN | 111 (A) | 6 - 23 mg/dL | | | + + + + + + | Creatinine | 12.09 (A) | 0.70 - 1.33 | | | | | | mg/dL | | | + + + + + + | Estimated | 4.0 (A) | 60.0 - 140.0 | | | | GFR | | mL/min/1.73m2 | | | + + + + + + | BUN/Creatin | 9.2 | 6.0 - 28.6 | | | | ine Ratio | | | | | + + + + + + | Albumin | 3.2 (A) | 3.5 - 5.0 g/dL | | | + + + + + + | Calcium | 8.0 (A) | 8.5 - 10.3 | | | + + + + + + | PHOSPHORUS | 8.5 (A) | 2.5 - 5.0 | | | + + + + + + + + | Specimen | + + | Blood | + + documented in this encounter Visit Diagnoses Not on filedocumented in this encounter"
--- OUTSIDE RECORDS SUMMARY | ~2020-08-10 | XMS | Encounter Summary ---
Demographics + + + | Address | [address] | | | [place] [address] | + + + | Home Phone | | + + + | Preferred Language | Unknown | + + + | Marital Status | Single | + + + | Adventism Affiliation | 1041 | + + + | Race | White | + + + | Ethnic Group | Not or | + + + Author + + + | Author | [facility] | | | and [place] | + + + | Organization | [facility] | | | [...] Team Providers + +------+ + | Care Legislative Aide Name | Role | Phone | + [...] + + | 10/09/ | Documentati | [facility] | Jose, | Results (10/03/19) | | 2019 | on | NEPHROLOGY [place] | Rayne Humphrey | | | | | [address] | Cell Lead | | | | | [address] | | | | | | [place] | | | | | | [address] | | | | | | [phone] | | | +--------+ + + + [...] 2019 | Visit | | [address] | | | | | | [place], | | | | | | [place] [address] | | | | | | [phone] | | | | | | | [...] + + + + + + | Clarity, | Cloudy | | | | | Urine | | | | | + + + + + + | Specific | 1.011 | 1.001 - 1.030 | | | | [place], | | | | | | Urine [...] + + + | Red Blood | 3.04 (A) | 4.30 - 5.70 [...]
--- OUTSIDE RECORDS SUMMARY | ~2020-08-10 | XMS | Encounter Summary ---
Demographics + + + | Address | [address] | | | [place] [address] | + + + | Home Phone | | + + + | Preferred Language | Unknown | + + + | Marital Status | Single | + + + | Jew Affiliation | 1041 | + + + | Race | White | + + + | Ethnic Group | Not or | + + + Author + + + | Author | [facility] | | | and [place] | + + + | Organization | [facility] | | | and [...] Team Providers + +------+ + | Care Zoology Professor Name | Role | Phone | [...] + + | 12/25/ | Telephone | [facility] | Elpidio Gunter MD | Appointment | | 2020 | | VASCULAR SURGERY | [address] | | | | | [address] [place] | [place], [place] | | | | | [place], [place] | [address] | | | | | [address] | [phone] | | | | | [phone] | | | +--------+ + + + [...] Please call home number elephone Dottie Patel, Dye Operator - 12/25/2019 3:37 PM PSTCalled patient per [...] [place], | | | | | | [place] [address] | | | | | | [phone] | | | | | | | | +--------+---------+ + + + documented as of this encounter Visit Diagnoses Not on filedocumented in this encounter"
--- OUTSIDE RECORDS SUMMARY | ~2020-08-10 | XMS | Encounter Summary ---
Demographics + + + | Address | [address] | | | [place] [address] | + + + | Home Phone [...] Author + + + | Author | [facility] | | | and [place] | + + + | Organization | [facility] | | [...] Team Providers + +------+ + | Care Political Organizer Name | Role | Phone | + [...] + + | 11/13/ | Documentati | [facility] | Garcia, | Results (11/10/19) | | 2020 | on | NEPHROLOGY [facility] | Rayne Humphrey | | | | | [address] | Network Strategist | | | | | [address] [place] | | | | | | [address] | | | | | | [phone] | | | +--------+ + + + [...] | | | | | | [place] [id number] | | | | | | [phone] | | | | | | | | +--------+---------+ + + + documented as of this encounter Procedures + +--------+ + + + | Procedure Name | Priori | Date/Time | Associated Diagnosis | Comments | | | ty | | | | + +--------+ + + + | EXTERNAL LAB: [facility] | Routin | 11/10/2019 | | Results [...] + + | Blood | + + Hauser and Lambda Light Chain Ratio (11/10/2019) + [...] + + + | Red Blood | 3.09 (A) | 4.30 - 5.70 [...]
--- OUTSIDE RECORDS SUMMARY | ~2020-08-10 | XMS | Encounter Summary ---
Demographics + + + | Address | [address] | | | [place] [address] | + + + | Home Phone [...] Author + + + | Author | [facility] | | | and [place] | + + + | Organization | [facility] | | | and [place] | + [...] Team Providers + +------+ + | Care Bindery Supervisor Name | Role | Phone | + +------+ + | Yrn Buckley MD | PCP | | + +------+ + Reason for Visit Auth/Cert +--------+--------+ + + + + | Status | Reason | Specialty | Diagnoses / | Referred By | Referred To | | | | | Procedures | Contact | Contact | +--------+--------+ + + + + | | | | Diagnoses | | | | | | | ESRD on | | | | | | | dialysis | | | | | | | ([facility]) | | | | | | | Procedures | | | | | | | SUPERFICIALI | | | | | | | ZATION AV | | | | | | | FISTULA | | | +--------+--------+ + + + + Encounter Details +--------+ + + + + | Date | Type | Department | Care Team | Description | +--------+ + + + + | 03/29/ | Hospital | [facility] | Elpidio Gunter MD | ESRD on dialysis | | 2020 | Encounter | [facility] | [address] | ([facility]) | | | | CARE FLOOR [address] | [place] [address] [place] | | | | | [place] | [address] | | | | | [place] | [phone] | | | | | [address] | | | | | | [phone] | | | +--------+ + + + [...] + + + | Blood Pressure | 144/77 | 03/29/2020 9:24 AM | | | | | PDT | | + + + + + | Pulse | 77 | 03/29/2020 9:24 AM | | | | | PDT | | + + + + + | Temperature | 36.6 C (97.8 F) | 03/29/2020 9:24 AM | | | | | PDT | | + + + + + | Respiratory Rate | 16 | 03/29/2020 9:24 AM | | | | | PDT | | + + + + + | Oxygen Saturation | 97% | 03/29/2020 9:24 AM | | | | | PDT | | + + + + + | Inhaled Oxygen | - | - | | | Concentration | | | | + + + + + | Weight | 89.8 kg (197 lb 15.6 | 03/29/2020 6:17 AM | | | | oz) | PDT | | + + + + + | Height | 182.9 cm (6') | 03/29/2020 6:17 AM | | | | | PDT | | + + + + + | Body Mass Index | 26.85 | 03/29/2020 6:17 AM | | | | | PDT | | + + + + + documented in this encounter Discharge Instructions Instructions Kierra Snow RN - 03/29/2020Formatting of this note might be different fro m the original. Dr. Jani COOPER DIALYSIS SHUNT/FISTULA DISCHARGE INSTRUCTIONS Your physician has placed/revised an arteriovenous (AV) shunt/fistula in your arm for your dialysis treatments. It is very important to protect your arm to prevent cutting off the jeff w of blood in your shunt. Dressing Care: ? Keep the dressings clean and dry for 48 hours (2 days). Do not remove the dressing durin g that time. ? After 48 hours (2 days) remove the outer portion of the dressing, leaving the steri-strip s in place. ? Leave the steri-strips that cover the skin incision in place for 14 days. ? If your dressings get wet, remove the dressing and replace with sterile gauze. If you do not have any dressing supplies, call your physician s office. ? Do not use dressings that place pressure on the shunt or completely encircle your arm or wrist. Shunt Care: ? DO NOT let anyone take your blood pressure, place a tourniquet, start an IV or draw blood from the arm with the shunt. ? DO NOT wear jewelry or tight sleeves on the arm with the shunt. ? DO NOT sleep on your shunt or carry anything hanging over the arm that has the shunt. ? DO NOT let anyone access the shunt except the Dialysis Center nurse or physician. Notify your physician if you notice the following: ? Loss of the thrill over the shunt ? Loss of pulsation over the shunt ? Pain or hardness in the area of the shunt ? Redness or swelling in the arm or drainage from the incision If there is an injury to the shunt and it begins to bleed, keep continuous pressure to the site and seek emergency care immediately. Use the thumb on the opposite hand to hold pressur e until help is obtained. If you have any questions or concerns regarding your dialysis shunt, please contact your ysician at [phone]. Arteriovenous (AV) Fistula for Dialysis An AV fistula is a connection between an artery and a vein. For this procedure, an AV fistu la is surgically created using an artery and a vein in your arm. (Your healthcare provider w ill let you know if another site is to be used.) When the artery and vein are joined, blood flow increases from the artery into the vein. As a result, the vein gets bigger over time. T he enlarged vein provides easier access to the blood for a treatment for kidney failure (zenaida lysis). This sheet explains the procedure and what to expect. An AV fistula increases blood flow from the artery into the vein. Over time, the vein becom es stronger and enlarged. Preparing for the procedure Prepare as you have been told. In addition: Tell yourhealthcare providerabout all the medicines you take. This includes all over -the-counter and prescription medicines, and street drugs. It also includes herbs, vitamins, and other supplements. You may need to stop taking some or all of them before the procedure . Follow any directions you re given for not eating or drinking before the procedure. Do not allow anyone to draw blood from or take blood pressure on the arm that will have the fistula before the procedure. The day of the procedure The procedure takes about 1 to 2 hours. You ll likely go home the same day. Before the procedure begins: An IV (intravenous) line is put into a vein in the arm or hand not being used for the pr ocedure. This line supplies fluids and medicines. To keep you free of pain during the procedure, you re given general anesthesia. This m edicine puts you into a state like a deep sleep through the procedure. Or a nerve block may be used. This medicine numbs the arm. With it, you may also be given medicine that makes you relaxed and drowsy through the procedure. During the procedure: The skin over your arm may be injected with numbing medicine. One or more small cuts (incisions) are then made through the numbed skin. This depends o n the size of your arm and the depth of the vein in your arm. The vein is attached to the selected artery. Any incisions made are then closed with stitches (sutures), berry, surgical glue, or s trips of surgical tape. After the procedure: You ll be asked to keep your arm raised (elevated) as often as possible for at least a week after the procedure. You ll be given medicines to manage pain as needed. Your arm and hand will be checked to make sure blood is flowing through the fistula prop erly. The feeling of blood rushing through the fistula is called a thrill. It is somewhat si milar to the purring of a cat. You ll be taught how to check for this feeling each day to make sure there are no problems with your fistula. You ll also be taught how to care for y our fistula at home. When it s time for you to leave the hospital, have an adult family member or friend re petar to drive you home. Recovering at home Once at home, follow all of the instructions you ve been given. Be sure to: Take all medicines as directed. Care for your incision as instructed. Check for signs of infection at the incision site (see below). Avoid heavy lifting and strenuous activities as directed. Monitor and care for your fistula as instructed. Do yourhand and arm exercises as instructed. This usually involves squeezing a ball in your hand for a few minutes each hour. Call your healthcare provider if you have any of the following: Fever of 100.4F (38C) or higher Signs of infection at the incision site, such as increased redness or swelling, warmth, worsening pain, bleeding, or bad-smelling drainage You can t feel a thrill (the vibration of blood going through your arm) Pain or numbness in your fingers, hand, or arm Bleeding, redness, or warmth around your fistula Sudden bulging of the fistula (more than usual; a slight bulge is normal) Follow-Up Your healthcare provider will check your fistula within 1 to 2 weeks after the procedure. I t will likely take about 6 to 8 weeks for the fistula to enlarge enough to start dialysis. A fter that, make sure the fistula is checked each time you have dialysis.Your healthcare pr ovidermay also suggest checkups every 6 months. Risks and possible complications include: The fistula not working properly Long wait before the fistula is ready (up to 6 months) Coldness or numbness in the hand (due to blood flowing away from the hand and into the f istula) An unsightly bump under the skin (due to enlargement of the fistula) Prolonged bleeding from the fistula after dialysis Narrowing or weakening of the blood vessels used for the fistula Formation of blood clots in the blood vessels used for the fistula Risks of anesthesia or any other medicines used during the procedure Living with an AV Fistula A problem, such as a narrowing (stricture) of the vein or an infection, can make the fistul a unusable. If this happens, you may need other treatments to repair or make a new fistula. To protect your fistula, follow these and any other guidelines you re given: Check your fistula as often as yourhealthcare providersays. If you can t feel your thrill, let your provider know right away. Make sure your fistula is checked before each dialysis treatment. Don t let anyone draw blood from or take blood pressure on the arm that has the fistul a. Wash your hands often and keep the area around your fistula clean. Don t sleep on the arm that has the fistula. Don t wear tight jewelry or a watch on the arm with your fistula. Protect your fistula from cuts, scrapes, or blows. Date Last Reviewed: 11/08/201619993631-9010 The [employer]. [address] [place] [address], [place] [address]. All [facility] reserved. This information is not intended as a substitute for professional medical care. Always follow your healthcare professional's instructions. After Your Surgery You ve just had surgery. During surgery, you received medication called anesthesia to mil p you comfortable and pain-free. After surgery, you may experience some pain or nausea. This is common. Going Home Have an adult family member or friend drive you home. For the first 24 hours after your brandy fredy: ? Do not drive or use heavy equipment. ? Do not make important decisions or sign legal documents. ? Avoid alcohol. ? Have someone stay with you, if needed. He or she can watch for problems and help keep you safe. Be sure to keep all follow-up appointments with your doctor. And rest after your procedure for as long as your doctor tells you to. Coping with Pain If you have pain after surgery, pain medication will help you feel better. Take your medica tion as directed, before pain becomes severe. Consider other ways to control pain, such as with heat, ice, and relaxation. To get the best relief possible, remember these points: ? Pain medications can upset your stomach. Taking them with a little food may help. ? Most pain relievers taken by mouth need at least 20 to 30 minutes to take effect. ? Taking medication on a schedule can help you remember to take it. Try to time your medica tion so that you can take it before beginning an activity, such as dressing, walking, or sit ting down for dinner. ? Don t drink alcohol while taking pain medication. ? Don t drive or operate machinery while taking pain medications as they can slow your re flexes. If your health care provider tells you to take acetaminophen or ibuprofen to help relieve y our pain, ask him or her how much you are supposed to take each day. Constipation ? Constipation is a common side effect of pain medications and anesthetics. Contact your do ctor before taking any medications like laxatives or stool softeners to help relieve constip ation, unless they have been prescribed for you. ? Drinking lots of non-alcoholic fluids and eating foods like fruits and vegetables that ar e high in fiber can also help. Managing Nausea Some people have an upset stomach after surgery. This is often due to anesthesia, pain, leah n medications, or the stress of surgery. If you were on a special diet before surgery, ask your doctor if you should follow it during recovery. These tips may help: ? Don t push yourself to eat. Your body will tell you when to eat and how much. ? Start off with clear liquids and soup. They are easier to digest. Slowly move to solid f oods. Don t eat fatty, rich, or spicy foods at first. ? Don t force yourself to have three large meals a day. Instead, eat smaller amounts more often. Blood Clot Prevention Deep vein thrombosis (DVT) is a clot that forms in your deep veins usually in the leg o r thigh. A pulmonary embolism (PE) occurs when a clot in the bloodstream travels through th e heart and into the lungs. If the clot becomes stuck in a blood vessel in the lungs, blood flow can be blocked which causes life-threatening heart and lung problems. The following are prevention tips: ? Elevate your legs whenever they feel swollen or heavy ? Maintain a healthy weight ? Quit smoking ? Avoid sitting, standing, or lying down for long periods without moving your legs and feet . o When traveling by car, make frequent stops to get out and move around. o On long airplane, train, or bus rides, get up and move around when possible. o If you can t get up, wiggle your toes and tighten your calves to keep your blood moving . If you have any of these symptoms of DVT or PE, call your doctor: ? Swelling, pain, or both, often in one limb ? Redness or warmth, often in one limb ? Sudden, continuous pain deep in your muscle ? Worsening ache when you are active or when you stand still for a long time ? Rapid, pounding, or unusual heartbeat ? Sweating more than usual. ? Chest pain, trouble breathing, coughing up blood, skin turning blue, or fainting Call 911. Acetaminophen; Oxycodone tablets Brand Names: Endocet, Nalocet, Percocet, Primlev, Roxicet What is this medicine? ACETAMINOPHEN; OXYCODONE (a set a RICH shai fen; ox i KOE done) is a pain reliever. It is use d to treat moderate to severe pain. How should I use this medicine? Take this medicine by mouth with a full glass of water. Follow the directions on the prescr iption label. You can take it with or without food. If it upsets your stomach, take it with food. Take your medicine at regular intervals. Do not take it more often than directed. A special MedGuide will be given to you by the pharmacist with each prescription and refill . Be sure to read this information carefully each time. Talk to your rn child regarding the use of this medicine in children. Special care may be needed. What side effects may I notice from receiving this medicine? Side effects that you should report to your doctor or health adult daycare coordinator as soon as p ossible: allergic reactions like skin rash, itching or hives, swelling of the face, lips, or tong ue breathing problems confusion redness, blistering, peeling or loosening of the skin, including inside the mouth signs and symptoms of liver injury like dark yellow or brown urine; general ill feeling or flu-like symptoms; light-colored stools; loss of appetite; nausea; right upper belly pain ; unusually weak or tired; yellowing of the eyes or skin signs and symptoms of low blood pressure like dizziness; feeling faint or lightheaded, f alls; unusually weak or tired trouble passing urine or change in the amount of urine Side effects that usually do not require medical attention (report to your doctor or health adult daycare coordinator if they continue or are bothersome): constipation dry mouth nausea, vomiting tiredness What may interact with this medicine? This medicine may interact with the following medications: alcohol antihistamines for allergy, cough and cold antiviral medicines for HIV or AIDS atropine certain antibiotics like clarithromycin, erythromycin, linezolid, rifampin certain medicines for anxiety or sleep certain medicines for bladder problems like oxybutynin, tolterodine certain medicines for depression like amitriptyline, fluoxetine, sertraline certain medicines for fungal infections like ketoconazole, itraconazole, voriconazole certain medicines for migraine headache like almotriptan, eletriptan, frovatriptan, nichole triptan, rizatriptan, sumatriptan, zolmitriptan certain medicines for nausea or vomiting like dolasetron, ondansetron, palonosetron certain medicines for Parkinson's disease like benztropine, trihexyphenidyl certain medicines for seizures like phenobarbital, phenytoin, primidone certain medicines for stomach problems like dicyclomine, hyoscyamine certain medicines for travel sickness like scopolamine diuretics general anesthetics like halothane, isoflurane, methoxyflurane, propofol ipratropium local anesthetics like lidocaine, pramoxine, tetracaine MAOIs like Carbex, Eldepryl, Marplan, Nardil, and Parnate medicines that relax muscles for surgery methylene blue nilotinib other medicines with acetaminophen other narcotic medicines for pain or cough phenothiazines like chlorpromazine, mesoridazine, prochlorperazine, thioridazine What if I miss a dose? If you miss a dose, take it as soon as you can. If it is almost time for your next dose, ta ke only that dose. Do not take double or extra doses. Where should I keep my medicine? Keep out of the reach of children. This medicine can be abused. Keep your medicine in a saf e place to protect it from theft. Do not share this medicine with anyone. Selling or giving away this medicine is dangerous and against the law. Store at room temperature between 20 and 25 degrees C (68 and 77 degrees F). This medicine may cause harm and if it is taken by other adults, children, or pets. R eturn medicine that has not been used to an official disposal site. Contact the [facility] at or your [facility] [employer] to find a site. If you cannot return the medicine, flush it down the toilet. Do not use the medicine after the expiration date. What should I tell my health care provider before I take this medicine? They need to know if you have any of these conditions: brain tumor Crohn's disease, inflammatory bowel disease, or ulcerative colitis drug abuse or addiction head injury heart or circulation problems if you often drink alcohol kidney disease or problems going to the bathroom liver disease lung disease, asthma, or breathing problems an unusual or allergic reaction to acetaminophen, oxycodone, other opioid analgesics, ot her medicines, foods, dyes, or preservatives or trying to get breast-feeding What should I watch for while using this medicine? Tell your doctor or health adult daycare coordinator if your pain does not go away, if it gets wors e, or if you have new or a different type of pain. You may develop tolerance to the medicine . Tolerance means that you will need a higher dose of the medication for pain relief. Tolera nce is normal and is expected if you take this medicine for a long time. Do not suddenly stop taking your medicine because you may develop a severe reaction. Your b chayo becomes used to the medicine. This does NOT mean you are addicted. Addiction is a behavi or related to getting and using a drug for a non-medical reason. If you have pain, you have a medical reason to take pain medicine. Your doctor will tell you how much medicine to take. If your doctor wants you to stop the medicine, the dose will be slowly lowered over time to avoid any side effects. There are different types of narcotic medicines (opiates). If you take more than one type a t the same time or if you are taking another medicine that also causes drowsiness, you may h ave more side effects. Give your health care provider a list of all medicines you use. Your doctor will tell you how much medicine to take. Do not take more medicine than directed. Live l emergency for help if you have problems breathing or unusual sleepiness. Do not take other medicines that contain acetaminophen with this medicine. Always read ramya agosto carefully. If you have questions, ask your doctor or pharmacist. If you take too much acetaminophen get medical help right away. Too much acetaminophen can be very dangerous and cause liver damage. Even if you do not have symptoms, it is important to get help right away. You may get drowsy or dizzy. Do not drive, use machinery, or do anything that needs mental alertness until you know how this medicine affects you. Do not stand or sit up quickly, michelle cially if you are an older patient. This reduces the risk of dizzy or fainting spells. Alcoh ol may interfere with the effect of this medicine. Avoid alcoholic drinks. The medicine will cause constipation. Try to have a bowel movement at least every 2 to 3 da ys. If you do not have a bowel movement for 3 days, call your doctor or health care professi onal. Your mouth may get dry. Chewing sugarless gum or sucking hard candy, and drinking plenty or water may help. Contact your doctor if the problem does not go away or is severe. NOTE:This sheet is a summary. It may not cover all possible information. If you have questi ons about this medicine, talk to your doctor, pharmacist, or health care provider. Copyright 2019 [employer] documented in this encounter Medications at Time of Discharge + + + +---------+ + + | Medication | Sig | Dispensed | Refills | Start | End Date | | | | | | Date | | + + + +---------+ + + | amLODIPine | Take 5 mg by mouth | | 0 | 12/02/19 | | | (NORVASC) 5 mg | Daily. | | | 20 | | | tablet | | | | | | + + + +---------+ + + | Ascorbic Acid | Take 1,000 mg by | | 0 | | | | (VITAMIN C) 1000 MG | mouth Daily. | | | | | | tablet | | | | | | + + + +---------+ + + | atorvaSTATin | Take 20 mg by mouth | | 0 | 05/18/20 | | | (LIPITOR) 20 mg | nightly. | | | 19 | | | tablet | | | | | | + + + +---------+ + + | calcium acetate | Take 1 capsule by | 90 | 11 | 12/18/19 | | | (CALCIUM ACETATE) | mouth 3 times daily | capsule | | 20 | | | 667 mg capsule | (with meals). | | | | | + + + +---------+ + + | | Take 1 tablet by | 30 | 0 | 03/29/20 | | | HYDROcodone-acetamin | mouth every 4 hours | tablet | | 20 | | | ophen (NORCO) 5-325 | as needed for Pain. | | | | | | mg per tablet | | | | | | + + + +---------+ + + | indapamide (LOZOL) | Take 1.25 mg by | | 0 | 03/04/20 | | | 1.25 MG tablet | mouth Daily. | | | 20 | | + + + +---------+ + + | insulin - MIX | Inject into the | | 0 | 05/18/20 | | | insulin NPH-insulin | skin 2 (two) times | | | 19 | | | regular 70/30 | daily before meals. | | | | | | (HUMULIN 70/30) 100 | | | | | | | units/mL injection | | | | | | + + + +---------+ + + | senna (SENOKOT) | Take 1 tablet by | 14 | 0 | 01/10/20 | | | 8.6 mg tablet | mouth Twice daily | tablet | | 20 | | | | as needed for | | | | | | | Constipation. | | | | | + + + +---------+ + + | sodium bicarbonate | Take 1 tablet by | 90 | 11 | 12/18/19 | | | 650 mg tablet | mouth 3 times daily. | tablet | | 20 | | + + + +---------+ + + documented as of this encounter Progress Notes Lucrecia Blake RN - 03/29/2020 9:25 AM PDTDischarge instructions went over with patikasia kee and restaurant delivery driver over phone all questions answered patient sent home with prescriptions. documented in this encounter Consult Notes Alyssa Johnston PA-C - 03/28/2020 3:00 PM PDTFormatting of this note might be different f rom the original. Incomplete []Hide copied text []Hover for details [facility] PREOPERATIVE HISTORY AND PHYSICAL PRIMARY CARE PHYSICIAN: Yrn Buckley PATIENT NAME: Jude Henley : [birth year] 68 TODAY'S DATE: 03/20/2020 DIAGNOSIS: ESRD INDICATION: Difficulty accessing left AVF CHIEF COMPLAINT: Unable to dialyze via left AVF HISTORY OF PRESENT ILLNESS: The patient is a 49 y.o. male with a history of ESRD on HD with leftbrachiocephalic AVF creation, (01/05/2020). The patient reports difficulty accessing t he fistula at the dialysis center and recently underwent a fistulagram on 03/20/20. The impr ession was that there was a widely patent left brachiocephalic fistula with multiple large b ranches. The patient complains of pain during access of his fistula as the attempts leave hi m, "black and blue." He has been relying on his RIJ tunneled catheter for dialysis. The marcelo alvarez reports no new pain or swelling in his hand however has had neuropathy since prior to his left AVF creation. The patient denies fever, wound drainage, increasing redness, pus, increasing pain, increasing swelling. His surgical incision has healed.Hehas good thrill s over the AVF site. Patient's ore mixer is Dr. Rothman. The patient is a right handed pe rson. The patient is receiving hemodialysis on Wednesday, and Wednesdayvia right upp er chest tunneled catheter at [facility]. Past Medical History: Diagnosis Date CKD (chronic kidney disease) stage 4, GFR 15-29 ml/min (HCC) Convulsive disorder (HCC) DM (diabetes mellitus), type 1, uncontrolled (HCC) HTN (hypertension) Proteinuria Past Surgical History: Procedure Laterality Date APPENDECTOMY AV FISTULA INSERTION Left 01/05/2020 Procedure: INSERTION AV FISTULA; Surgeon: Elpidio Gunter MD; [place] [facility] [place]GICAL H[place] Left 2017 CATARACT EXTRACTION Family History Problem Relation Age of Onset Diabetes Mother Other (see comment) Mother Renal Disease Prostate cancer Father Asthma Sister Diabetes Sister Arthritis Sister Thyroid disease Sister Social History: The pt reports that he has quit smoking. His smoking use included cigarettes. He has never used smokeless tobacco. He reports previous alcohol use. He reports that he does not use dr rodríguez. No Known Allergies REVIEW OF SYSTEMS: Review of Systems per HPI (Not in a hospital admission) Current Outpatient Medications Medication Sig Dispense Refill amLODIPine (NORVASC) 5 mg tablet Take 5 mg by mouth Daily. atorvaSTATin (LIPITOR) 20 mg tablet Take 20 mg by mouth nightly. calcium acetate (CALCIUM ACETATE) 667 mg capsule Take 1 capsule by mouth 3 times daily (with meals). 90 capsule 11 insulin - MIX insulin NPH-insulin regular 70/30 (HUMULIN 70/30) 100 units/mL injection Inject into the skin 2 (two) times daily before meals. (Patient taking differently: Inject 5 Units under the skin 2 times daily (before meals). Per pt- takes 5 units in the morning an d 5 units at night.) metoprolol succinate (TOPROL-XL) 50 mg 24 hr tablet Take 50 mg by mouth daily. senna (SENOKOT) 8.6 mg tablet Take 1 tablet by mouth Twice daily as needed for Constip ation. 14 tablet 0 sodium bicarbonate 650 mg tablet Take 1 tablet by mouth 3 times daily. 90 tablet 11 No current facility-administered medications for this encounter. PHYSICAL EXAM Vital Signs on Arrival: Vitals Signs (most recent): Admission Weight: Constitutional: Well nourished, no signs of distress HENT: Non icteric sclerae, oropharynx clear. Normocephalic and atraumatic. Cranial nerves I I-XI are grossly intact. Cardiovascular: Normal rate, regular rhythm, murmur noted Pulmonary/Chest: No respiratory distress. Abdominal: Soft. No abdominal distension or tenderness. No abdominal pulsatile mass noted. Musculoskeletal: Normal range of motion. No evidence of arthritis. Extremities: No edema, cyanosis or clubbing. Toes with erythema bilaterally, Neurological: He is alert and oriented. No muscle weakness and normal gait. VASCULAR: left: AVF with good thrill throughout. Mild ecchymosis. 2+radial and triphasic ul tang arteries. Fingers with good capillary refill and no ischemia. Right hand with 2+radial Patient Active Problem List Diagnosis CKD (chronic kidney disease) stage 5, GFR less than 15 ml/min Type 2 diabetes mellitus with diabetic nephropathy, with long-term current use of insul in Nephrotic range proteinuria Anemia of chronic kidney failure, stage 5 Hyperkalemia Metabolic acidosis Hyperuricemia At high risk for electrolyte imbalance Essential hypertension Mixed hyperlipidemia Type 1 diabetes mellitus with hyperglycemia Hyperphosphatemia CKD (chronic kidney disease) requiring chronic dialysis Uremia, acute ESRD on hemodialysis S/P arteriovenous (AV) fistula creation S/P hemodialysis catheter insertion NELIA (acute kidney injury) ASSESSMENT/PLAN: 1. Patient is a 49 y.o. male with ESRD and left brachiocephalic AVF creation with difficu lty accessing his left brachiocephalic AVF for dialysis. He presents today for superficiali zation and branch ligation of his AVF for better access during dialysis. Benefits and risks of operation were explained to the patient and the patient agreed to proceed. The risks in clude potential bleeding, infection, PE, access thrombosis, vessel perforation, infection, M I, stroke and . All questions were answered, and patient signed a consent for this pro cedure. Alyssa Johnston PA-C Vascular Surgery documented in this enc ounter Miscellaneous Notes Op Note - Elpidio Gunter MD - 03/29/2020 8:11 AM PDT [facility]: Vascular Surgery Operative Note Pre-operative Diagnosis: ESRD and fistula too deep to access Post-operative Diagnosis: same Procedure(s): Superficialization of left brachiocephalic fistula Surgeon: Elpidio Gunter MD Wall Taper(s): MARCELO Urena (MARCELO was required to help with positioning, prepping and sharif ping, exposure of vessels, branch ligation, and closure). Anesthesia: General LMA Estimated Blood Loss: Minimal Other: IV Fluids: 200 ml Indications: See pre-operative history and physical Findings: Left arm cephalic vein was deep with multiple large branches. After superficial ization, strong thrill in fistula. Complications: None apparent Description of Procedure: The patient was properly identified and brought to the operating room. The patient was placed supine on the operating table. The patient underwent General L MA. The patient's left arm was then prepped and draped in the usual sterile fashion. A longi tudinal incision was then made from the left axilla to the antecubital fossa. This was deepe aura through the subcutaneous tissue with electrocautery. The cephalic vein was identified an d dissected. Branches of the cephalic vein were ligated with 3-0 silk sutures and divided. O nce the vein was freed from the antecubital fossa to the axilla, a subcutaneous skin flap wa s then raised and the vein was then placed underneath a subcutaneous skin flap and secured u sing 3-0 Vicryl sutures. The wound was then irrigated and hemostasis was ensured. The deep d ermal tissue was then closed with 3-0 Vicryl. The skin was then closed with berry. There w as a strong thrill in the fistula. At the end of the case the sponge, needle, and instrumen t counts were correct x2. A sterile dressing was then applied. Patient was then taken to [facility] PACU in stable condition. There were no apparent complications. Condition: stable Elpidio Gunter MD 03/29/2020 8:11 AM documented in this enc ounter Plan of Treatment +--------+---------+ + + + | Date | Type | Specialty | Care Team | Description | +--------+---------+ + + + | 09/30/ | Office | Cardiology | Aditya Monzon, | | | 2019 | Visit | | MD [address] | | | | | | [place], | | | | | | [place] [address] | | | | | | [phone] | | | | | | | | +--------+---------+ + + + documented as of this encounter Procedures + +--------+ + + + | Procedure Name | Priori | Date/Time | Associated Diagnosis | Comments | | | ty | | | | + +--------+ + + + | POC GLUCOSE (NON | Routin | 03/29/2020 | | Results for this | | ORD) | e | 8:33 AM | | procedure are in the | | | | PDT | | results section. | + +--------+ + + + | SUPERFICIALIZATION | | 03/29/2020 | ESRD on dialysis | | | AV FISTULA | | 7:12 AM | (HCC) | | | | | PDT | | | + +--------+ + + + | CBC WITH | STAT | 03/29/2020 | | Results for this | | DIFFERENTIAL | | 6:22 AM | | procedure are in the | | | | PDT | | results section. | + +--------+ + + + | BASIC METABOLIC | STAT | 03/29/2020 | | Results for this | | PANEL | | 6:22 AM | | procedure are in the | | | | PDT | | results section. | + +--------+ + + + | POC GLUCOSE (NON | Routin | 03/29/2020 | | Results for this | | ORD) | e | 6:16 AM | | procedure are in the | | | | PDT | | results section. | + +--------+ + + + documented in this encounter Results POC Glucose (03/29/2020 8:33 AM PDT) + + + + + + | Component | Value | Ref Range | Performed | Pathologist | | | | | At | Signature | + + + + + + | Glucose, | 127 (H)Comment: Testing | 65 - 99 mg/dL | [facility] | | | POC | performed at [facility] [place] | | LABORATORY | | | | [address];[place], [place] | | | | | | [address] | | | | + + + + + + + + | Specimen | + + | | + + + + + + + | Performing | Address | City/State/Zipcode | Phone Number | | Organization | | | | + + + + + | [facility] | [address] | [place] [address] | [phone] | + + + + + CBC with Differential (03/29/2020 6:22 AM PDT) + + + + + + | Component | Value | Ref Range | Performed | Pathologist | | | | | At | Signature | + + + + + + | WBC | 6.05 | 3.80 - 11.00 | [facility] | | | | | K/uL | LABORATORY | | + + + + + + | Red Blood | 4.39 | 4.20 - 5.70 | [facility] | | | Cells | | M/uL | LABORATORY | | + + + + + + | Hemoglobin | 12.4 (L) | 13.2 - 17.0 | [facility] | | | | | g/dL | LABORATORY | | + + + + + + | Hematocrit | 39.6 | 39.0 - 50.0 % | [facility] | | | | | | LABORATORY | | + + + + + + | MCV | 90.2 | 80.0 - 100.0 fl | [facility] | | | | | | LABORATORY | | + + + + + + | MCH | 28.2 | 27.0 - 34.0 pg | [facility] | | | | | | LABORATORY | | + + + + + + | MCHC | 31.3 (L) | 32.0 - 35.5 | [facility] | | | | | g/dL | LABORATORY | | + + + + + + | RDW-SD | 54.0 (H) | 37 - 53 fl | [facility] | | | | | | LABORATORY | | + + + + + + | Platelet | 168 | 150 - 400 K/uL | [facility] | | | Count | | | LABORATORY | | + + + + + + | MPV | 12.4Comment: NO NORMAL | fl | [facility] | | | | RANGE ESTABLISHED | | LABORATORY | | + + + + + + | Diff Type | AUTOMATED | | [facility] | | | | | | LABORATORY | | + + + + + + | % nRBC | 0.0 | 0 /100WBC | [facility] | | | | | | LABORATORY | | + + + + + + | % | 53.30 | % | [facility] | | | Neutrophils | | | LABORATORY | | + + + + + + | IMMATURE | 0.20 | % | [facility] | | | GRANULOCYTE | | | LABORATORY | | + + + + + + | % | 26.40 | % | [facility] | | | Lymphocytes | | | LABORATORY | | + + + + + + | Monocyte % | 9.10 | % | [facility] | | | | | | LABORATORY | | + + + + + + | Eosinophils | 10.20 | % | [facility] | | | % | | | LABORATORY | | + + + + + + | Basophils % | 0.80 | % | [facility] | | | | | | LABORATORY | | + + + + + + | Neutrophils | 3.22 | 1.90 - 7.40 | [facility] | | | , Absolute | | K/uL | LABORATORY | | + + + + + + | IMMATURE | 0.01Comment: NOTE NEW | 0.00 - 0.07 | [facility] | | | GRANS AB | REFERENCE RANGE | K/uL | LABORATORY | | + + + + + + | Absolute | 1.60 | 1.00 - 3.90 | [facility] | | | Lymphocytes | | K/uL | LABORATORY | | + + + + + + | Absolute | 0.55 | 0.00 - 0.80 | [facility] | | | Monocytes | | K/uL | LABORATORY | | + + + + + + | Eosinophils | 0.62 (H) | 0.00 - 0.50 | [facility] | | | , Absolute | | K/uL | LABORATORY | | + + + + + + | Basophils, | 0.05Comment: Testing | 0.00 - 0.10 | [facility] | | | Absolute | performed at [facility] [place] | K/uL | LABORATORY | | | | [employer];[place], [place] | | | | | | [address] | | | | + + + + + + + + | Specimen | + + | Blood | + + + + + + + | Performing | Address | City/State/Zipcode | Phone Number | | Organization | | | | + + + + + | [facility] | [address] | [place] [address] | [phone] | + + + + + Basic Metabolic Panel (03/29/2020 6:22 AM PDT) + + + + + + | Component | Value | Ref Range | Performed | Pathologist | | | | | At | Signature | + + + + + + | Na | 138 | 135 - 145 | [facility] | | | | | mmol/L | LABORATORY | | + + + + + + | K | 5.2 (H) | 3.5 - 4.9 | [facility] | | | | | mmol/L | LABORATORY | | + + + + + + | Cl | 101 | 99 - 109 mmol/L | [facility] | | | | | | LABORATORY | | + + + + + + | CO2 | 31 | 23 - 32 mmol/L | [facility] | | | | | | LABORATORY | | + + + + + + | Anion Gap | 11 | 5 - 20 mmol/L | [facility] | | | | | | LABORATORY | | + + + + + + | Glucose | 200 (H) | 65 - 99 mg/dL | [facility] | | | | | | LABORATORY | | + + + + + + | BUN | 28 (H) | 8 - 25 mg/dL | [facility] | | | | | | LABORATORY | | + + + + + + | Creatinine | 4.25 (H) | 0.70 - 1.30 | [facility] | | | | | mg/dL | LABORATORY | | + + + + + + | BUN/Creatin | 7 | | [facility] | | | ine Ratio | | | LABORATORY | | + + + + + + | Calcium | 8.9 | 8.5 - 10.5 | [facility] | | | | | mg/dL | LABORATORY | | + + + + + + | Estimated | 15 (L)Comment: GFR <60: | >60 | [facility] | | | GFR | CHRONIC KIDNEY DISEASE, | mL/min/1.73m2 | LABORATORY | | | | IF FOUND OVER A 3 MONTH | | | | | | PERIOD.GFR <15: KIDNEY | | | | | | FAILURE.FOR | | | | | | AMERICANS, MULTIPLY THE | | | | | | CALCULATED GFR BY | | | | | | 1.210.This eGFR is | | | | | | calculated using the | | | | | | MDRD IDMS traceable | | | | | | equation.Testing | | | | | | performed at [facility] [place] | | | | | | [facility];[place], [place] | | | | | | [address] | | | | + + + + + + + + | Specimen | + + | Blood | + + + + + + + | Performing | Address | City/State/Zipcode | Phone Number | | Organization | | | | + + + + + | [facility] | [address] [facility] | [place] [address] | [phone] | + + + + + POC Glucose (03/29/2020 6:16 AM PDT) + + + + + + | Component | Value | Ref Range | Performed | Pathologist | | | | | At | Signature | + + + + + + | Glucose, | 180 (H)Comment: Testing | 65 - 99 mg/dL | [facility] | | | POC | performed at [facility] [place] | | LABORATORY | | | [address];[place], [place] | | | | | | [address] | | | | + + + + + + + + | Specimen | + + | | + + + + + + + | Performing | Address | City/State/Zipcode | Phone Number | | Organization | | | | + + + + + | [facility] | [address] | [place] [address] | [phone] | + + + + + documented in this encounter Visit Diagnoses + + | Diagnosis | + + | ESRD on dialysis (HCC) - Primary End stage renal disease | + + documented in this encounter Admitting Diagnoses + + | Diagnosis | + + | ESRD on dialysis (HCC) End stage renal disease | + + documented in this encounter Administered Medications + +--------+ + +------+------+ | Medication Order | MAR | Action | Dose | Rate | Site | | | Action | Date | | | | + +--------+ + +------+------+ | acetaminophen (TYLENOL) tablet | Given | 03/29/20 | 1,000 mg | | | | 1,000 mg 1,000 mg, Oral, ONCE, | | 20 7:18 | | | | | 03/29/20 at 0715, For 1 dose, | | AM PDT | | | | | Pre-op | | | | | | + +--------+ + +------+------+ +---+---+ | | | +---+---+ + +-------+ +---------+---+---+ | insulin regular (humuLIN R, | Given | 03/29/20 | 3 Units | | | | novoLIN R) injection (vial) 3 | | 20 7:16 | | | | | Units 3 Units, Intravenous, | | AM PDT | | | | | ONCE, Wed03/29/20 at 0715, For 1 | | | | | | | dose, Only for use with U-100 | | | | | | | insulin syringe., Pre-op | | | | | | + +-------+ +---------+---+---+ +---+---+ | | | +---+---+ + +-------+ +------+---+---+ | ondansetron (ZOFRAN ODT) | Given | 03/29/20 | 4 mg | | | | disintegrating tablet 4 mg 4 mg, | | 20 9:30 | | | | | Oral, EVERY 6 HOURS PRN, Nausea, | | AM PDT | | | | | Vomiting, Starting Wed03/29/20 | | | | | | | at 0850, First line agent, | | | | | | | Post-op/Phase II | | | | | | + +-------+ +------+---+---+ +---+---+ | | | +---+---+ + +-------+ +------+---+---+ | oxyCODONE (ROXICODONE) tablet 5 | Given | 03/29/20 | 5 mg | | | | mg 5 mg, Oral, ONCE PRN, Pain, | | 20 9:30 | | | | | Starting Wed03/29/20 at 0811, For | | AM PDT | | | | | 1 dose, If able to take oral | | | | | | | medication., Recovery/Phase I | | | | | | + +-------+ +------+---+---+ +---+---+ | | | +---+---+ + +---------+ +---+ +---+ | sodium chloride 0.9% (NS) | New Bag | 03/29/20 | | 30 mL/hr | | | infusion at 30 mL/hr, | | 20 6:26 | | | | | Intravenous, CONTINUOUS, Starting | | AM PDT | | | | | Wed03/29/20 at 0630, Pre-op | | | | | | + +---------+ +---+ +---+ +---+---+ | | | +---+---+ documented in this encounter Additional Health Concerns + + + + + | Infection | Onset Date | Last Indicated | Resolved Time | + + + + + | Clostridium | 01/09/2020 | 01/09/2020 | 04/08/2020 3:55 AM | | difficile | | | PDT | + + + + + documented as of this encounter
--- OUTSIDE RECORDS SUMMARY | ~2020-08-10 | XMS | Clinical Summary ---
Demographics + + + | Address | [address] | | | [place] [address] | + + + | Home Phone | | + + + | Preferred Language | Unknown | + + + | Marital Status | Single | + + + | Nondenominational Affiliation | Unknown | + + + | Race | White | + + + | Ethnic Group | Not or | + + + Author + + + | Author | NON REVENUE LOCATIONS | + + + | Organization | NON REVENUE LOCATIONS | + + + | Address | Unknown | + + + | Phone | Unavailable | + + + Support + + +---------+ + | Name | Relationship | Address | Phone | + + +---------+ + | Ramona Rucker | ECON | Unknown | | + + +---------+ + | Landon Beck | ECON | Unknown | | + + +---------+ + Care Team Providers + +------+ + | Care Switch Engineer Name | Role | Phone | + +------+ + | Yrn Buckley MD | PCP | | + +------+ + Source Comments [facility] is fully live on both [facility] Amb[facility] and [facility] Allergies Not on File Medications Not on file Active Problems + + + | Problem | Noted Date | + + + | Convulsive disorder | 08/06/2020 | + + + | Pure hypercholesterolemia | 08/06/2020 | + + + | Former smoker | 08/06/2020 | + + + | Hyperuricemia | 08/06/2020 | + + + | CKD (chronic kidney disease) requiring chronic dialysis | 01/11/2020 | + + + + + | Overview: End Stage Renal Disease 01/11/2020 current modality | | HDCurrent Access: L cephalic Prior Access:Unit/Schedule: | | IDWG:BMD:Urine Output:Complications: | |Unit/Schedule: | |IDWG: | |BMD: | |Urine Output: | |Complications: | + + + + + | Essential hypertension | 10/06/2018 | + + + + + | Overview: Diagnosed in his early s. | | Complications beyond renal failure | | Crisis: | | LVH: | | CAD: | | SD : | | Stroke: | | Sleep apnea or loud snoring: | | Retinopathy: | + + + +---+ | Type 2 diabetes mellitus with ESRD (end-stage renal disease) | | | ([facility] 2728 | | + +---+ + + | Overview: Diagnosed with DM in his early 's | | | | Onset of diabetes: | | Takes insulin: ; Takes oral hypglycemic agents: | | Retinopathy: ; Neuropathy: ; Gastroparesis: | | Non-healing ulcers: ; Peripheral vascular disease: | + + Encounters +--------+ + + + + | Date | Type | Specialty | Care Team | Description | +--------+ + + + + | 05/27/ | Telephone | Kidney Transplant | Linda De La Paz, | Pre Transplant | | 2019 | | | RN | Workup (Intake) | +--------+ + + + + from Last 3 Months Family History + + +------+ + | Medical History | Relation | Name | Comments | + + +------+ + | Prostate Cancer | Father | | | + + +------+ + | Diabetes | Mother | | | + + +------+ + | Diabetes | Sister | | | + + +------+ + + +------+--------+ + | Relation | Name | Status | Comments | + +------+--------+ + | Father | | | | + +------+--------+ + | Mother | | | | + +------+--------+ + | Sister | | | | + +------+--------+ + Social History + +-------+ +--------+ + | Tobacco Use | Types | Packs/Day | Years | Date | | | | | Used | | + +-------+ +--------+ + | Former Smoker | | | 30 | Quit: 03/08/2020 | + +-------+ +--------+ + + +---+---+---+ | Smokeless Tobacco: | | | | | Never Used | | | | + +---+---+---+ + + + | Sex Assigned at | Date Recorded | | | | + + + | Not on file | | + + + Last Filed Vital Signs Not on file Plan of Treatment +--------+---------+ + + + | Date | Type | Specialty | Care Team | Description | +--------+---------+ + + + | 08/14/ | Office | Kidney Transplant | Tila Tess Chau, | | | 2019 | Visit | | WATER MECHANIC [address] [facility] | | | | | | [place] | | | | | | [place], [place] | | | | | | [address] | | | | | | [phone] | | | | | | | | +--------+---------+ + + + + + + + + | Health Maintenance | Due Date | Last | Comments | | | | Done | | + + + + + | Influenza (Flu) | | 01/08/20 | | | vaccination (#1) | 0 | 20, | | | | | 07/19/20 | | | | | 18, | | | | | 07/19/20 | | | | | 18, | | | | | Addition | | | | | al | | | | | history | | | | | exists | | + + + + + | Pneumococcal | | 02/11/20 | | | vaccination (3 of 3 | 4 | 19, | | | - PPSV23) | | 02/23/20 | | | | | 18 | | + + + + + Results Not on filefrom Last 3 Months Insurance + +--------+ +--------+-------+---------+--------+ | Payer | Benefi | Subscriber | Effect | Phone | Address | Type | | | t Plan | ID | zoie | | | | | | / | | Dates | | | | | | Group | | | | | | + +--------+ +--------+-------+---------+--------+ | SHIRT FOLDING MACHINE OPERATOR MEDICAID | SHIRT FOLDING MACHINE OPERATOR | [id number] | 05/12/20 | | | Medica | | | [place] | | 19-Pre | | | id | | | [place] | | sent | | | | + +--------+ +--------+-------+---------+--------+ + +--------+ +--------+ + + | Guarantor Name | Accoun | Relation to | Date | Phone | Billing Address | | | t Type | Patient | of | | | | | | | | | | + +--------+ +--------+ + + | Jude Henley | Person | Self | [birth year] | | | | al/Jon | | 1970 | [phone] | [place] [address] | | | aubrey | | | 1 (Home) | | + +--------+ +--------+ + +"
--- OUTSIDE RECORDS SUMMARY | ~2020-08-10 | XMS | Encounter Summary ---
Demographics + + + | Address | [address] | | | [place] [address] | + + + | Home Phone | | + + + | Preferred Language | Unknown | + + + | Marital Status | Single | + + + | Faith Affiliation | [phone] | + + + | Race | White | + + + | Ethnic Group | Not or | + + + Author + + + | Author | [facility] | | | and [place] | + + + | Organization | [facility] | | | [...] Team Providers + +------+ + | Care Direct Marketing Representative Name | Role | Phone | [...] + + | 10/13/ | Documentati | [facility] | Jose, | Other ([place] | | 2019 | on | NEPHROLOGY [place] | [facility] | retroperitoneal | | | | [address] | Roll Cutting Operator | 07/26/19) | | | | [address] | | | | | | [place], [place] | | | | | | [address] | | | | | | [phone] | | | +--------+ + + + [...] | | | | | | [place] [address] | | | | | | [phone] | | | | | | | | +--------+---------+ + + + documented as of this encounter Visit Diagnoses Not on filedocumented in this encounter"
--- OUTSIDE RECORDS SUMMARY | ~2020-08-10 | XMS | Encounter Summary ---
Demographics + + + | Address | [address] | | | [place] [address] | + + + | Home Phone [...] Author + + + | Author | [facility] | | | and [place] | + + + | Organization | [facility] | | | [...] Team Providers + +------+ + | Care Turret Lathe Tender Name | Role | Phone | + [...] + + | 10/10/ | Documentati | [facility] | Jose, | Other (07/26/19 | | 2019 | on | NEPHROLOGY [place] | Rayne Humphrey | Renal us) | | | | [address] | Veneer Sample Maker | | | | | [address] | | | | | | [place] | | | | | | [address] | | | | | | [phone] | | | +--------+ + + + [...] | | | | | | [place] [address] | | | | | | [phone] | | | | | | | | +--------+---------+ + + + documented as of this encounter Visit Diagnoses Not on filedocumented in this encounter"
--- OUTSIDE RECORDS SUMMARY | ~2020-08-10 | XMS | Encounter Summary ---
Demographics + + + | Address | [address] | | | [place] [address] | + + + | Home Phone [...] Author + + + | Author | [facility] | | | and [place] | + + + | Organization | [facility] | | [...] Team Providers + +------+ + | Care Irrigator Name | Role | Phone | + +------+ + | Yrn Buckley MD | PCP | | + +------+ + Reason for Visit +--------+ + | Reason | Comments | +--------+ + | Other | Chest X ray report 12/18/19 | +--------+ + Encounter Details +--------+ + + + + | Date | Type | Department | Care Team | Description | +--------+ + + + + | 01/07/ | Documentati | [facility] | Jose, | Other (Chest X ray | | 2019 | on | NEPHROLOGY YAIMA | [facility] | report 12/18/19) | | | | [address] [place] | Geochemical Laboratory Technician | | | | | [address] [place], [place] | | | | | | [address] | | | | | | [phone] | | | +--------+ + + + [...] | | | | | | [place] [address] | | | | | | [phone] | | | | | | | | +--------+---------+ + + + documented as of this encounter Visit Diagnoses Not on filedocumented in this encounter Additional Health Concerns + + + + + | Infection | Onset Date | Last Indicated | Resolved Time | + + + + + | Rule out Sebas | 01/06/2020 | 01/06/2020 | 01/09/2020 3:07 PM | | Difficile | | | PST | + + + + + documented as of this encounter"
--- OUTSIDE RECORDS SUMMARY | ~2020-08-10 | XMS | Encounter Summary ---
Demographics + + + | Address | [address] | | | [place] [address] | + + + | Home Phone | | + + + | Preferred Language | Unknown | + + + | Marital Status | Single | + + + | Jewish Affiliation | 1041 | + + + | Race | White | + + + | Ethnic Group | Not or | + + + Author + + + | Author | [facility] | | | and [place] | + + + | Organization | [facility] | | | and [...] Team Providers + +------+ + | Care Cheese Production Supervisor Name | Role | Phone | + +------+ + | Yrn Buckley MD | PCP | | + +------+ + Encounter Details +--------+ + + + + | Date | Type | Department | Care Team | Description | +--------+ + + + + | 03/12/ | Telephone | [facility] | Elpidio Gunter MD | | | 2020 | | CENTER CV INTRA OP | [address] | | | | | [address] | [place], [place] | | | | | [place], [place] | [address] | | | | | [address] | [phone] | | | | | [phone] | | | +--------+ + + + [...] | | | | | | [place] [address] | | | | | | [phone] | | | | | | | [...]
--- OUTSIDE RECORDS SUMMARY | ~2020-08-10 | XMS | Encounter Summary ---
Demographics + + + | Address | [address] | | | [place] [address] | + + + | Home Phone [...] Organization | [facility] [...] Team Providers + +------+ + | Care Lath Tier Name | Role | Phone | + +------+ + | Yrn Buckley MD | PCP | | + +------+ + Reason for Referral Diagnostic/Screening (Routine) +--------+--------+ + + + + | Status | Reason | Specialty | Diagnoses / | Referred By | Referred To | | | | | Procedures | Contact | Contact | +--------+--------+ + + + + | Closed | | Radiology | Diagnoses | Cirilo Tijerina, | | | | | | CKD | DNP [address] | | | | | | (chronic | [address] | | | | | | kidney | [place] | | | | | | disease) | [place] | | | | | | requiring | [address] | | | | | | chronic | Phone: | | | | | | dialysis | [phone] | | | | | | ([facility]) AVF | Fax: | | | | | | (arterioveno | [phone] | | | | | | us fistula) | | | | | | | (HCC) | | | | | | | Procedures | | | | | | | VAS | | | | | | | Hemodialysis | | | | | | | Graft | | | | | | | Fistula | | | +--------+--------+ + + + + Reason for Visit + + + | Reason | Comments | + + + | Follow-up | | + + + Encounter Details +--------+---------+ + + + | Date | Type | Department | Care Team | Description | +--------+---------+ + + + | 01/23/ | Office | [facility] | Cirilo Tijerina DNP | CKD (chronic kidney | | 2020 | Visit | VASCULAR SURGERY | [address] | disease) requiring | | | | [address] [place] | [place], [place] | chronic dialysis | | | | [place], [place] | [address] | (HCC) (Primary Dx); | | | | [address] | | AVF (arteriovenous | | | | [phone] | | fistula) (HCC) | +--------+---------+ + + + Social History [...] +---------+ + + | Blood Pressure | 149/88 | 01/24/2020 1:08 PM | | | | | PDT | | + +---------+ + + | Pulse | 83 | 01/24/2020 1:08 PM | | | | | PDT | | + +---------+ + + | Temperature | - | - | | + +---------+ + + | Respiratory Rate | - | - | | + +---------+ + + | Oxygen Saturation | 99% | 01/24/2020 1:08 PM | | | | | PDT [...] +---------+ + + documented in this encounter Progress Notes Cirilo Tijerina DNP - 01/24/2020 1:00 PM [facility] [address] [place] [address] Office: [phone] DATE OF VISIT: 01/24/2020 PATIENT NAME: Jude Henley : 1970; AGE: 49 y.o.; Sex:M PHONE NUMBER: ; ; PROVIDER: Cirilo Tijerina DNP PRIMARY CARE / REFERRING PHYSICIAN: No ref. provider found / Yrn Buckley MD / [address] [place] / [place] [address] REASON FOR EVALUATION / CHIEF COMPLAINT: Vascular Surgery Postoperative Visit for AVF creation The patient presents today for a Vascular Surgery Postoperative Visit. The patient is statu s post left brachiocephalic AVF creation, which was performed on 01/05/2020 at the [facility] Operating Room. The patient is not having any pain. The patient denies fever, wound drainage, increasing redness, pus, increasing pain, increasing swelling. Physic al examination revealed surgical incision which is healing well without signs of infection. He has good thrills over the AVF site. Patient's uppers edge burnisher is Dr. Rothman. The patient is a right handed person. The patient is receiving hemodialysis on Wednesday, and ay via right upper chest tunneled catheter at [facility]. VITAL SIGNS: BP 149/88 | Pulse 83 | SpO2 99% PHYSICAL EXAM: Constitutional: Well nourished, no signs of distress Cardiovascular: Normal rate, regular rhythm. Pulmonary/Chest: No respiratory distress. No adventitious sounds. Abdominal: Soft. No abdominal distension or tenderness. Musculoskeletal: Normal range of motion. Extremities: No edema, cyanosis or clubbing. Neurological: He is alert and oriented. VASCULAR: left upper arm examination showed normal thrills in the AV fistula. Avery gical incision wounds are healing well without signs of infection. Assessment & Plan: ESRD & s/p AV fistula creation -Wound care discussed with patient, monitor for signs of inf ection. Check for AVF thrill daily. Instruction given to patient to continue with hand exerc ise with squeezing soft object or ball. Also advised patient to avoid sleeping on his left s sierra as it may cause AVF compression resulting in hand swelling and fistula occlusion. The pa tient is instructed to return to our clinic in 1 month for follow up. Cirilo Tijerina DNP documented in this encounte [...] [place], | | | | | | [place] [address] | | | | | | [phone] | | | | | | | | +--------+---------+ + + + documented as of this encounter Results VAS Hemodialysis Graft Fistula (02/26/2020 1:25 PM PDT) + + | Specimen | + + | | + + + + + | Impressions | Performed At | + + + | Greater than 60% stenosis at the arterio-venous anastomosis. Of | [facility] | | note, anastomosis is immediately central to the bifurcation of the | | | brachial artery. Signed by: Jerson Ramsey, Jasen Sign | | | Date/Time: 02/26/2020 4:40 PM | | + + + + + + | Narrative | Performed At | + + + | IMAGING DIALYSIS GRAFT CLINICAL INFORMATION: AVF | [facility] | | COMPARISON: RENAL LIMITED (01/05/2020); PROCEDURE: Real-time | | | grayscale, color flow and spectral Doppler sonography of the | | | Patient's left brachiocephalic fistula was performed. FINDINGS: | | | Brachial artery: Peak systolic velocity: 279 cm/S Volume of flow: | | | 1511 mL/Min Diameter: 5.3 mm Anastomosis: PSV: 1005 cm/S | | | Diameter: 2.6 mm Depth: 9.7 mm Cephalic vein, distal humerus: | | | PSV: 583 cm/S Volume of flow: 1002 mL/Min Diameter: 3.4 mm | | | Cephalic vein, mid humerus: PSV: 179 cm/S Volume flow: 2275 mL/Min | | | Diameter: 8.5 mm Depth: 3.1 mm Cephalic vein, proximal humerus: | | | PSV: 122 cm/S Volume of flow: 1147 mL/Min Diameter: 6.9 mm Depth: | | | 3.8 mm Cephalic vein insertion: PSV: 127 cm/S Subclavian vein: | | | 89 cm/S | | + + + + + | Procedure Note | + + | Juan, Rad Results In - 02/26/2020 4:43 PM PDT | | IMAGING DIALYSIS GRAFT | | | | CLINICAL INFORMATION: | | AVF | | | | COMPARISON: | | US RENAL LIMITED (01/05/2020); | | | | PROCEDURE: | | Real-time grayscale, color flow and spectral Doppler sonography of the | | Patient's left brachiocephalic fistula was performed. | | | | FINDINGS: | | Brachial artery: | | Peak systolic velocity: 279 cm/S | | Volume of flow: 1511 mL/Min | | Diameter: 5.3 mm | | | | Anastomosis: | | PSV: 1005 cm/S | | Diameter: 2.6 mm | | Depth: 9.7 mm | | | | Cephalic vein, distal humerus: | | PSV: 583 cm/S | | Volume of flow: 1002 mL/Min | | Diameter: 3.4 mm | | | | Cephalic vein, mid humerus: | | PSV: 179 cm/S | | Volume flow: 2275 mL/Min | | Diameter: 8.5 mm | | Depth: 3.1 mm | | | | Cephalic vein, proximal humerus: | | PSV: 122 cm/S | | Volume of flow: 1147 mL/Min | | Diameter: 6.9 mm | | Depth: 3.8 mm | | | | Cephalic vein insertion: | | PSV: 127 cm/S | | Subclavian vein: 89 cm/S | | | | IMPRESSION: | | Greater than 60% stenosis at the arterio-venous anastomosis. | | | | Of note, anastomosis is immediately central to the bifurcation of the | | brachial artery. | | | | | | | | Signed by: Jerson Ramsey Matthew | | Sign Date/Time: 02/26/2020 4:40 PM | + + + +---------+ + + | Performing | Address | City/State/Zipcode | Phone Number | | Organization | | | | + +---------+ + + | [facility] | | | | + +---------+ + + documented in this encounter Visit Diagnoses + + | Diagnosis | + + | CKD (chronic kidney disease) requiring chronic dialysis (HCC) - Primary End stage | | renal disease | + + | AVF (arteriovenous fistula) (HCC) Arteriovenous fistula, acquired | + + documented in this encounter Additional Health Concerns [...]
--- OUTSIDE RECORDS SUMMARY | ~2020-08-10 | XMS | Encounter Summary ---
Demographics + + + | Address | [address] | | | [place] [address] | + + + | Home Phone | | + + + | Preferred Language | Unknown | + + + | Marital Status | Single | + + + | Amish Affiliation | 1041 | + + + | Race | White | + + + | Ethnic Group | Not or | + + + Author + + + | Author | [facility] | | | and [place] | + + + | Organization | [facility] | | | and [...] Team Providers + +------+ + | Care Jig Grinder Set Up Operator Name | Role | Phone | + +------+ + | Yrn Buckley MD | PCP | | + +------+ + Reason for Visit +--------+--------+ + | Reason | Onset | Comments | | | Date | | +--------+--------+ + | Other | 12/13/ | Lab results and referral | | | 2019 | | +--------+--------+ + Encounter Details +--------+ + + + + | Date | Type | Department | Care Team | Description | +--------+ + + + + | 12/13/ | Telephone | [facility] | Eros Rothman MD | Other (Lab results | | 2019 | | NEPHROLOGY [facility] | [address] [place] | and referral ) | | | | [address] [place] | [address] [place], [place] | | | | | [address] [place], [place] | [id number] | | | | | [address] | | | | | | [phone] | | | +--------+ + + + [...] Miscellaneous Notes Telephone Encounter - Milagro Garcia Medical Assistant - 12/13/2019 4:03 PM PSTSpoke to patient and informed him of message from provider he verbalized understanding and had no fruther questions at this time. Patient will be in to see Dr. Rothman on Wednesday in [place]. el ephone Encounter - Milagro Garcia Medical Assistant - 12/13/2019 9:18 AM PSTAttempted to call patient at only number listed was unable to reach him. Left message requesting for patient to call back to speak to him in regards to his labs. Will attempt to call back a lat er time. elephone Encounter - Milagro Garcia Medical Assistant - 12/13/2019 9:16 AM PST Called to inform of patients high creatinine of 11.17. Per Dr. Rothman send referral for patient to vascular surgery for PD catheter insertion and call and inform patient that labs are worsening and he will be getting a call from Deena tripp to schedule patient for a kidney smart class as well as a call from vascular to have dialysis access placed. Viviane ctronically signed by Rayne Vasquez at 12/13/2019 9:19 AM PSTdocume nted in this encounter Plan of Treatment +--------+---------+ + + + | Date | Type | Specialty | Care Team | Description | +--------+---------+ + + + | 09/30/ | Office | Cardiology | [place], Aditya M, | | | 2019 | Visit | | [address] | | | | | | [place], | | | | | | [place] [address] | | | | | | [phone] | | | | | | | | +--------+---------+ + + + documented as of this encounter Visit Diagnoses Not on filedocumented in this encounter"
--- OUTSIDE RECORDS SUMMARY | ~2020-08-10 | XMS | Encounter Summary ---
Demographics + + + | Address | [address] | | | [place] [address] | + + + | Home Phone | | + + + | Preferred Language | Unknown | + + + | Marital Status | Single | + + + | Methodist Affiliation | 1041 | + + + | Race | White | + + + | Ethnic Group | Not or | + + + Author + + + | Author | [facility] | | | and [place] | + + + | Organization | [facility] | | | and [...] Team Providers + +------+ + | Care Clinical Physician Assistant Name | Role | Phone | + [...] | | | | | requiring | [address] | | | | | | chronic | Phone: | | | | | | dialysis | [phone] | | | | | | ([facility]) AVF | Fax: | | | | | | (arterioveno | [phone] | | | | | | us [...] | | | | | disease) | [place], [place] | | | | | | requiring | [address] | | | | | | chronic | Phone: | | | | | | dialysis | [phone] | | | | | | ([facility]) AVF | Fax: | | | | | | (arterioveno | [phone] | | | | | | us [...] | +--------+ + + + + | 02/25/ | Hospital | [facility] | | CKD (chronic kidney | | 2019 | Encounter | VASCULAR SURGERY | | disease) requiring | | | | ULTRASOUND [address] | | chronic dialysis | | | | [address] [place] | | (HCC); AVF | | | | [place] | | (arteriovenous | | | | [address] | | fistula) ([facility]) | | | | [phone] | | | +--------+ + + + [...] + + documented as of this encounter Medications at Time of Discharge [...] | | | | | | [place] [address] | | | | | | [phone] | | | | | | | | +--------+---------+ + + + documented as of this encounter Procedures + +--------+ + + + | Procedure Name | Priori | Date/Time | Associated Diagnosis | Comments | | | ty | | | | + +--------+ + + + | VAS HEMODIALYSIS | Routin | 02/26/2020 | CKD (chronic | Results for this | | GRAFT FISTULA | e | 1:25 PM | kidney disease) | procedure are in the | | | | PDT | requiring chronic | results section. | | | | | dialysis ([facility]) AVF | | | | | | (arteriovenous | | | | | | fistula) ([facility]) | | + +--------+ + + + documented in this encounter Results VAS Hemodialysis Graft Fistula [...] (chronic kidney disease) requiring chronic dialysis (HCC) End stage renal disease | [...]
--- OUTSIDE RECORDS SUMMARY | ~2020-08-10 | XMS | Encounter Summary ---
Demographics + + + | Address | [address] | | | [place] [address] | + + + | Home Phone | | + + + | Preferred Language | Unknown | + + + | Marital Status | Single | + + + | Cheondoism Affiliation | 1041 | + + + | Race | White | + + + | Ethnic Group | Not or | + + + Author + + + | Author | [facility] | | | and [place] | + + + | Organization | [facility] | | [...] Team Providers + +------+ + | Care Weaving Instructor Name | Role | Phone | + +------+ + | Yrn Buckley MD | PCP | | + +------+ + Encounter Details +--------+ + + + + | Date | Type | Department | Care Team | Description | +--------+ + + + + | 06/23/ | Orders Only | [facility] | Eros Rothman MD | Kidney failure | | 2019 | | NEPRHOLOGY [place] | [address] [place] | | | | | [address] | [address] [place], [place] | | | | | [address] [place], [place] | [address] | | | | | [address] | | | | | | [phone] | | | +--------+ + + + [...] | | | | | | [place] [address] | | | | | | [phone] | | | | | | | [...]
--- OUTSIDE RECORDS SUMMARY | ~2020-08-10 | XMS | Encounter Summary ---
Demographics + + + | Address | [address] | | | [place] [address] | + + + | Home Phone | | + + + | Preferred Language | Unknown | + + + | Marital Status | Single | + + + | Synagogue Affiliation | 1041 | + + + | Race | White | + + + | Ethnic Group | Not or | + + + Author + + + | Author | [facility] | | | and [place] | + + + | Organization | [facility] | | | and [...] Team Providers + +------+ + | Care Supervisor Furnace Process Name | Role | Phone | + [...] + + | 04/10/ | Office | [facility] | Cirilo Tijerina DNP | ESRD on dialysis | | 2020 | Visit | VASCULAR SURGERY | [address] | ([facility]) (Primary Dx); | | | | [address] [place] | [place], [place] | AVF (arteriovenous | | | | [place], [place] | [address] | fistula) ([facility]) | | | | [address] | | | | | | [phone] | | | +--------+---------+ + + + [...] Cirilo Tijerina DNP - 04/10/2020 1:30 PM [facility] Surgery [facility] [address] [place] [address] Office: [phone] DATE OF VISIT: 04/10/2020 PATIENT NAME: Jude Henley : 1970; AGE: 49 y.o.; Sex:M PHONE NUMBER: ; ; PROVIDER: Cirilo Tijerina DNP PRIMARY CARE / REFERRING PHYSICIAN: No ref. provider found / Yrn Buckley MD / [address] [facility] / [place] [address] The patient presents today for a Vascular Surgery Postoperative Visit. The patient is statu s post left arm cephalic vein elevation / transposition operation, which was performed on at the [facility] Operating Room. The patient denies fever, wou nd drainage, increasing redness, pus, increasing pain, increasing swelling. Physical examina tion revealed surgical incision which is healing well without signs of infection. He has goo d thrills over the AVF site. The patient is receiving hemodialysis on Wednesday, and Wednesday at [facility]. his bomb technician is Dr. Rothman. VITAL SIGNS: BP [...] | | | | | | [place] [address] | | | | | | [phone] | | | | | | | | +--------+---------+ + + + documented as of this encounter Visit Diagnoses + + | Diagnosis | + + | ESRD on dialysis (HCC) - Primary End stage renal disease | + + | AVF (arteriovenous fistula) (HCC) Arteriovenous fistula, acquired | + + documented in this encounter"
--- OUTSIDE RECORDS SUMMARY | ~2020-08-10 | XMS | Encounter Summary ---
Demographics + + + | Address | [address] | | | [place] [address] | + + + | Home Phone | | + + + | Preferred Language | Unknown | + + + | Marital Status | Single | + + + | Orthodoxy Affiliation | 1041 | + + + [...] Team Providers + +------+ + | Care Bullet Swaging Machine Operator Name | Role | Phone | + +------+ + | Yrn Buckley MD | PCP | | + +------+ + Reason for Visit +---------+ + | Reason | Comments | +---------+ + | Results | 12/11/19 | +---------+ + Encounter Details +--------+ + + + + | Date | Type | Department | Care Team | Description | +--------+ + + + + | 12/13/ | Documentati | [facility] | Garcia, | Results (12/11/19) | | 2020 | on | NEPHROLOGY [facility] | Rayne Humphrey | | | | | [address] [place] | [place] | | | | | [address] [facility] [place] | | | | | | [address] | | | | | | [phone] | | | +--------+ + + + [...] | | | | | | [place] [address] | | | | | | [phone] | | | | | | | | +--------+---------+ + + + documented as of this encounter Procedures + +--------+ + + + | Procedure Name | Priori | Date/Time | Associated Diagnosis | Comments | | | ty | | | | + +--------+ + + + | EXTERNAL LAB: [facility]JA | Routin | 12/11/2019 | | Results for this | | INTACT | e | | | procedure are in the | | | | | | results section. | + +--------+ + + + | CBC NO DIFFERENTIAL | Routin | 12/11/2019 | | Results for this | | | e | | | procedure are in the | | | | | | results section. | + +--------+ + + + | IRON AND IRON | Routin | 12/11/2019 | | Results for this | | BINDING CAPACITY | e | | | procedure are in the | | | | | | results section. | + +--------+ + + + | RENAL FUNCTION PANEL | Routin | 12/11/2019 | | Results for this | | | e | | | procedure are in the | | | | | | results section. | + +--------+ + + + documented in this encounter Results External Lab: PTH, Intact (12/11/2019) + + + + + + | Component | Value | Ref Range | Performed | Pathologist | | | | | At | Signature | + + + + + + | PTH Intact, | 218.1 (A) | 15 - 65 | | | | External | | | | | + + + + + + + + | Specimen | + + | | + + CBC with Manual Differential (12/11/2019) + + + + + + | Component | Value | Ref Range | Performed | Pathologist | | | | | At | Signature | + + + + + + | WBC | 9.3 | 4.5 - 11.0 | | | + + + + + + | Red Blood | 2.86 (A) | 4.30 - 5.70 | | | | Cells | | M/uL | | | + + + + + + | Hemoglobin | 8.2 (A) | 13.5 - 18.0 | | | + + + + + + | Hematocrit, | 24.8 (A) | 41.0 - 50.0 % | | | | POC | | | | | + + + + + + | MCV | 86.9 | 81.0 - 99.0 fL | | [...] + + + + | RDW | 15 | 10.5 - 15.0 | | | + + + + + + | Neutrophils | 77.1 | 39 - 80 | | | | , Absolute | | | | | + + + + + + | Absolute | 12.2 (A) | 24 - 44 | | | | Lymphocytes | | | | | + + + + + + | Absolute | 5.7 | 0 - 12 | | | | Monocytes | | | | | + + + + + + | Eosinophils | 3.9 | 0 - 6 | | | | , Absolute | | | | | + + + + + + | Basophils, | 0.9 | 0 - 2 | | | | Absolute | | | | | + + + + + + + + | Specimen | + + | Blood | + + Iron and Iron Binding Capacity (12/11/2019) + +--------+ + + + | Component | Value | Ref Range | Performed | Pathologist | | | | | At | Signature | + +--------+ + + + | Iron | 42 | 37 - 160 ug/dL | | | + +--------+ + + + | Iron | 16 (A) | 20 - 55 % | | | | Saturation | | | | | + +--------+ + + + | TIBC | 261 | 245 - 400 ug/dL | | | + +--------+ + + + | Ferritin, | 332.0 | 30 - 400 | | | | External | | | | | + +--------+ + + + + + | Specimen | + + | Blood | + + Renal Function Panel (12/11/2019) + + + + + + | Component | Value | Ref Range | Performed | Pathologist | | | | | At | Signature | + + + + + + | Na | 136 | 132 - 143 | | | | | | mmol/L | | | + + + + + + | K | 4.6 | 3.6 - 5.1 | | | | | | mmol/L | | | + + + + + + | Cl | 104 | 95 - 112 mmol/L | | | + + + + + + | CO2 | 16 (A) | 19 - 31 | | | + + + + + + | Anion Gap | 21 | 7 - 21 mmol/L | | | + + + + + + | Glucose | 135 (A) | 70 - 100 mg/dL | | | + + + + + + | BUN | 97 (A) | 6 - 23 mg/dL | | | + + + + + + | Creatinine | 11.17 (A) | 0.70 - 1.33 | | | | | | mg/dL | | | + + + + + + | Estimated | 5.0 (A) | 60.0 - 140.0 | | | | GFR | | mL/min/1.73m2 | | | + + + + + + | BUN/Creatin | 8.7 | 6.0 - 28.6 | | | | ine Ratio | | | | | + + + + + + | Albumin | 3.4 (A) | 3.5 - 5.0 g/dL | | | + + + + + + | Calcium | 8.3 (A) | 8.5 - 10.3 | | | + + + + + + | PHOSPHORUS | 7.4 (A) | 2.5 - 5.0 | | | + + + + + + + + | Specimen | + + | Blood | + + documented in this encounter Visit Diagnoses Not on filedocumented in this encounter"
--- OUTSIDE RECORDS SUMMARY | ~2020-08-10 | XMS | Encounter Summary ---
Demographics + + + | Address | [address] | | | [place] [address] | + + + | Home Phone | | + + + | Preferred Language | Unknown | + + + | Marital Status | Single | + + + | Samaritan Affiliation | 1041 | + + + | Race | White | + + + | Ethnic Group | Not or | + + + Author + + + | Author | [facility] | | | and [place] | + + + | Organization | [facility] | | | [...] Team Providers + +------+ + | Care Kitchen Chef Name | Role | Phone | + +------+ + | Yrn Buckley MD | PCP | | + +------+ + Reason for Visit +--------+--------+ + | Reason | Onset | Comments | | | Date | | +--------+--------+ + | DME | 02/11/ | walker | | | 2020 | | +--------+--------+ + Encounter Details +--------+ + + + + | Date | Type | Department | Care Team | Description | +--------+ + + + + | 02/11/ | Telephone | [facility] | Leni Adrian | DME (quin) | | 2020 | | [address] | [place] | | | | | [place] | | | | | | [address] | | | | | | [phone] | | | +--------+ + + + [...] this encounter Miscellaneous Notes Telephone Encounter - Leni Adrian RN - 02/12/2020 3:31 PM PDTRequest for chart no shin for FWW. Faxed pack PT notes from hospital stay. documented in this encounter Plan of Treatment +--------+---------+ + + + | Date | Type | Specialty | Care Team | Description | +--------+---------+ + + + | 09/30/ | Office | Cardiology | Aditya Monzon, | | 2019 | Visit | | MD [address] | | | | | | [place], | | | | | | [place] [address] | | | | | | [phone] | | | | | | | [...]
--- OUTSIDE RECORDS SUMMARY | ~2020-08-10 | XMS | Clinical Summary ---
Demographics + + + | Address | [address] | | | [place] [address] | + + + | Home Phone [...] + + + | Author | [facility] | | | and [place] | + + + | Organization | [facility] | | | and [...] Team Providers + +------+ + | Care Technical Developer Name | Role | Phone | + +------+ + | Yrn Buckley MD | PCP | | + +------+ + Allergies No Known Allergies Medications + + + +---------+------+------+-------+ | Medication | Sig | Dispensed | Refills | Star | End | Statu | | | | | | t | Date | s | | | | | | Date | | | + + + +---------+------+------+-------+ | insulin - MIX | Inject into the | | 0 | 07/1 | | Activ | | insulin NPH-insulin | skin 2 (two) times | | | 20 | | e | | regular 70/30 | daily before meals. | | | 19 | | | | (HUMULIN 70/30) 100 | | | | | | | | units/mL injection | | | | | | | + + + +---------+------+------+-------+ | atorvaSTATin | Take 20 mg by mouth | | 0 | 07/1 | | Activ | | (LIPITOR) 20 mg | nightly. | | | 120 | | e | | tablet | | | | 19 | | | + + + +---------+------+------+-------+ | calcium acetate | Take 1 capsule by | 90 | 11 | 02/1 | | Activ | | (CALCIUM ACETATE) | mouth 3 times daily | capsule | | 0/20 | | e | | 667 mg capsule | (with meals). | | | 20 | | | + + + +---------+------+------+-------+ | sodium bicarbonate | Take 1 tablet by | 90 | 11 | 02/1 | | Activ | | 650 mg tablet | mouth 3 times daily. | tablet | | 0/20 | | e | | | | | | 20 | | | + + + +---------+------+------+-------+ | amLODIPine | Take 5 mg by mouth | | 0 | 01/2 | | Activ | | (NORVASC) 5 mg | Daily. | | | 5/20 | | e | | tablet | | | | 20 | | | + + + +---------+------+------+-------+ | senna (SENOKOT) | Take 1 tablet by | 14 | 0 | 03/0 | | Activ | | 8.6 mg tablet | mouth Twice daily | tablet | | 4/20 | | e | | | as needed for | | | 20 | | | | | Constipation. | | | | | | + + + +---------+------+------+-------+ | indapamide (LOZOL) | Take 1.25 mg by | | 0 | 04/2 | | Activ | | 1.25 MG tablet | mouth Daily. | | | 7/20 | | e | | | | | | 20 | | | + + + +---------+------+------+-------+ | Ascorbic Acid | Take 1,000 mg by | | 0 | | | Activ | | (VITAMIN C) 1000 MG | mouth Daily. | | | | | e | | tablet | | | | | | | + + + +---------+------+------+-------+ | | Take 1 tablet by | 30 | 0 | 05/2 | | Activ | | HYDROcodone-acetamin | mouth every 4 hours | tablet | | 2/20 | | e | | ophen (NORCO) 5-325 | as needed for Pain. | | | 20 | | | | mg per tablet | | | | | | | + + + +---------+------+------+-------+ | gabapentin | Take 1 capsule at | 90 | 3 | 10/0 | | Activ | | (NEURONTIN) 100 mg | bedtime. | capsule | | 1/20 | | e | | capsule | | | | 20 | | | + + + +---------+------+------+-------+ Active Problems + + + | Problem | Noted Date | + + + | ESRD on dialysis | 03/20/2020 | + + + + + | Overview: Added automatically from request for surgery | | [id number] | + + + + + | S/P arteriovenous (AV) fistula creation | 01/10/2020 | + + + | S/P hemodialysis catheter insertion | 01/10/2020 | + + + | NELIA (acute kidney injury) | 01/10/2020 | + + + | ESRD on hemodialysis | 01/04/2020 | + + + + + | Overview: Added automatically from request for surgery | | [id number] | + + + + + | CKD (chronic kidney disease) requiring chronic dialysis | 01/03/2020 | + + + + + | Overview: Added automatically from request for surgery | | [id number] | + + + + + | Uremia, acute | 01/03/2020 | + + + | Hyperphosphatemia | 11/13/2019 | + + + | CKD (chronic kidney disease) stage 5, GFR less than 15 ml/min | 10/09/2019 | + + + | Type 2 diabetes mellitus with diabetic nephropathy, with | 10/09/2019 | | long-term current use of insulin | | + + + | Nephrotic range proteinuria | 10/09/2019 | + + + | Anemia of chronic kidney failure, stage 5 | 10/09/2019 | + + + | Hyperkalemia | 10/09/2019 | + + + | Metabolic acidosis | 10/09/2019 | + + + | Hyperuricemia | 10/09/2019 | + + + | At high risk for electrolyte imbalance | 10/09/2019 | + + + | Essential hypertension | 10/06/2018 | + + + | Mixed hyperlipidemia | 10/06/2018 | + + + | Type 1 diabetes mellitus with hyperglycemia | 10/06/2018 | + + + Resolved Problems + + + + | Problem | Noted | Resolved | | | Date | Date | + + + + | Uremic encephalopathy | 03/04/20 | | | | 20 | 0 | + + + + Encounters +--------+ + + + + | Date | Type | Specialty | Care Team | Description | +--------+ + + + + | 08/08/ | Orders Only | Nephrology | Jude Ruiz, | | | 2019 | | | LEAD COOK | | +--------+ + + + + | 07/02/ | Documentati | Nephrology | Jose, | Other (pre | | 2019 | on | | [facility] | transplant | | | | | Aquaculture Farmer | consultation notes | | | | | | 06/25/20) | +--------+ + + + + | 06/19/ | Documentati | Nephrology | Garcia, | Other (transplant | | 2019 | on | | Rayne Humphrey | team letter | | | | | Aquaculture Farmer | 06/12/20) | +--------+ + + + + from Last 3 Months Immunizations + + + + | Name | Administration Dates | Next Due | + + + + | INFLUENZA PF | 01/08/2020 | | | QUAD(PED/ADOL/ADULT) | | | | ,PSKT or VIAL | | | + + + + | INFLUENZA PF | 07/19/2018, 02/22/2018 | | | TRIVALENT(PED/ADOL/A | | | | DULT), PSKT | | | + + + + | INFLUENZA, | 07/19/2018, 02/22/2018 | | | UNSPECIFIED | | | | FORMULATION | | | + + + + | PNEUMOCOCCAL | 02/22/2018 | | | CONJUGATE 13-VALENT | | | | (PCV13) | | | + + + + | PNEUMOCOCCAL | 02/10/2019 | | | POLYSACCHARIDE | | | | 23-VALENT (PPSV23) | | | + + + + Family History + + +------+ + | Medical History | Relation | Name | Comments | + + +------+ + | Prostate cancer | Father | | | + + +------+ + | Diabetes | Mother | | | + + +------+ + | Other (see comment) | Mother | | Renal Disease | + + +------+ + | Arthritis | Sister | | | + + +------+ + | Asthma | Sister | | | + + +------+ + | Diabetes | Sister | | | + + +------+ + | Thyroid disease | Sister | | | + + +------+ + + +------+--------+ + | Relation | Name | Status | Comments | + +------+--------+ + | Father | | | | + +------+--------+ + | Mother | | | | + +------+--------+ + | Sister | | | | + +------+--------+ + Social History + + + +--------+ [...] + + + Last Filed Vital Signs + + + + + | Vital Sign | Reading | Time Taken | Comments | + + + + + | Blood Pressure | 135/82 | 05/01/2020 3:24 PM | | | | | PDT | | + + + + + | Pulse | 75 | [...] | | + + + + + Plan of Treatment +--------+---------+ + + + | Date | Type | Specialty | Care Team | Description | +--------+---------+ + + + | 09/30/ | Office | Cardiology | Aditya Monzon, | | | 2019 | Visit | | MD [address] | | | | | | [place], | | | | | | [place] [address] | | | | | | [phone] | | | | | | | | +--------+---------+ + + + + + + + + | Health Maintenance | Due Date | Last | Comments | | | | Done | | + + + + + | Hepatitis C | | | | | Screening | 9 | | | + + + + + | Medication | | | | | Management | 9 | | | + + + + + | Diabetic Eye Exam | | | | | | 7 | | | + + + + + | Diabetic Foot Exam | | | | | | 7 | | | + + + + + | Vaccine: | | | | | Dtap/Tdap/Td (1 - | 8 | | | | Tdap) | | | | + + + + + | Colorectal Cancer | | | | | Screening | 9 | | | | (Colonoscopy) | | | | + + + + + | Vaccine: Zoster (1 | | | | | of 2) | 9 | | | + + + + + | Vaccine: Influenza | | 01/08/20 | | | (#1) | 0 | 20, | | | | | 07/19/20 | | | | | 18, | | | | | 07/19/20 | | | | | 18, | | | | | Addition | | | | | al | | | | | history | | | | | exists | | + + + + + | Hemoglobin A1c | | 01/10/20 | | | Screening | 0 | 20, | | | | | 02/11/20 | | | | | 19 | | + + + + + | Med Mgmt: HBA1C | | 01/10/20 | | | | 0 | 20, | | | | | 02/11/20 | | | | | 19 | | + + + + + | Med Mgmt: Phosphate | | 01/07/20 | | | | 1 | 20, | | | | | 01/06/20 | | | | | 20, | | | | | 01/02/20 | | | | | 20, | | | | | Addition | | | | | al | | | | | history | | | | | exists | | + + + + + | Med Mgmt: Ca | | 03/29/20 | | | | 1 | 20, | | | | | 01/10/20 | | | | | 20, | | | | | 01/08/20 | | | | | 20, | | | | | Addition | | | | | al | | | | | history | | | | | exists | | + + + + + | Med Mgmt: Cr | | 03/29/20 | | | | 1 | 20, | | | | | 01/10/20 | | | | | 20, | | | | | 01/08/20 | | | | | 20, | | | | | Addition | | | | | al | | | | | history | | | | | exists | | + + + + + | Med Mgmt: K | | 03/29/20 | | | | 1 | 20, | | | | | 01/10/20 | | | | | 20, | | | | | 01/08/20 | | | | | 20, | | | | | Addition | | | | | al | | | | | history | | | | | exists | | + + + + + | Med Mgmt: Na | | 03/29/20 | | | | 1 | 20, | | | | | 01/10/20 | | | | | 20, | | | | | 01/08/20 | | | | | 20, | | | | | Addition | | | | | al | | | | | history | | | | | exists | | + + + + + | Med Mgmt: eGFR | | 03/29/20 | | | | 1 | 20, | | | | | 01/10/20 | | | | | 20, | | | | | 01/08/20 | | | | | 20, | | | | | Addition | | | | | al | | | | | history | | | | | exists | | + + + + + | Vaccine: | | 02/11/20 | | | Pneumococcal 19-64 | 4 | 19, | | | (3 of 3 - PPSV23) | | 02/23/20 | | | | | 18 | | + + + + + Procedures + +--------+ + + + | Procedure Name | Priori | Date/Time | Associated Diagnosis | Comments | | | ty | | | | + +--------+ + + + | LABS - EXTERNAL SCAN | | 05/24/2020 | | Results for this | | | | 12:00 AM | | procedure are in the | | | | PDT | | results section. | + +--------+ + + + from Last 3 Months Results LABS - EXTERNAL SCAN (05/24/2020 12:00 AM PDT) + + + | Narrative | Performed At | + + + | Ordered by an | | | unspecified provider. | | + + + from Last 3 Months Insurance + +--------+ +--------+ +---------+--------+ | Payer | Benefi | Subscriber | Effect | Phone | Address | Type | | | t Plan | ID | zoie | | | | | | / | | Dates | | | | | | Group | | | | | | + +--------+ +--------+ +---------+--------+ | [employer] | [employer] | [id number] | | [phone] | | Medica | | MEDICAID HMO | HEALTH | | [id number]-Pr | 1 | | id | | | MDCD | | esent | | | | | | [place] | | | | | | + +--------+ +--------+ +---------+--------+ | [employer] | [employer] | [id number] | 06/11/20 | [phone] | | Medica | | MEDICAID HMO | HEALTH | | 19-Pre | 1 | | id | | | MDCD | | sent | | | | | | [place] | | | | | | + +--------+ +--------+ +---------+--------+ + +--------+ +--------+ + + | Guarantor Name | Accoun | Relation to | Date | Phone | Billing Address | | | t Type | Patient | of | | | | | | | | | | + +--------+ +--------+ + + | Jude Henley | Person | Self | [birth year] | [address] | | | al/Fam | | 1969 | [phone] | [place], [place] | | | [place] | | | [address] (Home) | [address] | + +--------+ +--------+ + + | Jude Henley | Person | Self | [birth year] | [address] | | | al/Fam | | 1969 | [phone] | [place], [place] | | | [place] | | | [address] (Home) | [phone] | + +--------+ +--------+ + + | Jude Henley | Person | Self | [birth year] | [address] | | | al/Fam | | 1969 | [phone] | [place], [place] | | | [place] | | | [address] (Home) | [address] | + +--------+ +--------+ + + Advance Directives + + + + + | Type | Date Recorded | Patient | Explanation | | | | Unemployment Insurance Director | | + + + + + | Power of | | | | | Pneumatic Tester Mechanic | | | | + + + + + | Advance | 03/21/2020 10:51 | | | | Directive | AM | | | + + + + + + + + + + | Code Status | Date | Date | Comments | | | Activated | Inactivated | | + + + + + | Full Code | 03/29/2020 | 03/29/2020 | | | | 8:50 AM | 11:49 AM | | + + + + + + + + +---+ | | | | | + + + +---+ | Full Code | 01/05/2020 | 01/10/2020 | | | | 4:51 PM | 3:21 PM | | + + + +---+ + + + +---+ | | | | | + + + +---+ | Full Code | 01/05/2020 | 01/05/2020 | | | | 2:57 PM | 4:44 PM | | + + + +---+ + + + +---+ | | | | | + + + +---+ | Full Code | 01/05/2020 | 01/05/2020 | | | | 12:08 AM | 2:57 PM | | + + + +---+"
--- OUTSIDE RECORDS SUMMARY | ~2020-08-10 | XMS | Encounter Summary ---
Demographics + + + | Address | [address] | | | [place] [address] | + + + | Home Phone [...] Author + + + | Author | [facility] | | | and [place] | + + + | Organization | [facility] | | | [...] Providers + +------+ + | Care Visual Basic Developer Name | Role | Phone | + +------+ + | Yrn Buckley MD | PCP | | + +------+ + Reason for Visit + +--------+ + | Reason | Onset | Comments | | | Date | | + +--------+ + | Follow-up | 01/09/ | | | | 2020 | | + +--------+ + Encounter Details +--------+ + + + + | Date | Type | Department | Care Team | Description | +--------+ + + + + | 01/09/ | Telephone | [facility] | Rupal Black, | Follow-up | | 2020 | | VASCULAR SURGERY | RN | | | | | [address] | | | | | | [place] | | | | | | [address] | | | | | | [phone] | | | +--------+ + + + [...] Telephone Encounter - Rupal Black RN - 01/10/2020 2:37 PM PSTFollow up call made to patient's sister Arlin. Message left for patient to call back and schedule follow up barrington ointment. documente d in this encounter Plan of Treatment +--------+---------+ + + + | Date | Type | Specialty | Care Team | Description | +--------+---------+ + + + | 09/30/ | Office | Cardiology | Aditya Monzon, | | 2019 | Visit | | MD [address] | | | | | | [place], | | | | | | [place] [address] | | | | | | [phone] | | | | | | | [...]
--- OUTSIDE RECORDS SUMMARY | ~2020-08-10 | XMS | Encounter Summary ---
Demographics + + + | Address | [address] | | | [place] [address] | + + + | Home Phone | | + + + | Preferred Language | Unknown | + + + | Marital Status | Single | + + + | Scientologist Affiliation | 1041 | + + + | Race | White | + + + | Ethnic Group | Not or | + + + Author + + + | Author | [facility] | | | and [place] | + + + | Organization | [facility] | | [...] Team Providers + +------+ + | Care Electronics Repair Technician Name | Role | Phone | + +------+ + | Yrn Buckley MD | PCP | | + +------+ + Reason for Visit +--------+ + | Reason | Comments | +--------+ + | Other | pre transplant consultation notes 06/25/20 | +--------+ + Encounter Details +--------+ + + + + | Date | Type | Department | Care Team | Description | +--------+ + + + + | 07/02/ | Documentati | [facility] | Jose, | Other (pre | | 2020 | on | NEPHROLOGY [place] | [facility] | transplant | | | | [address] [place] | Type Casting Machine Operator | consultation notes | | | | [address] [place], [place] | | 06/25/20) | | | | [address] | | | | | | [phone] | | | +--------+ + + + [...] | | | | | | [place] [address] | | | | | | [phone] | | | | | | | | +--------+---------+ + + + documented as of this encounter Visit Diagnoses Not on filedocumented in this encounter"
--- OUTSIDE RECORDS SUMMARY | ~2020-08-10 | XMS | Encounter Summary ---
Demographics + + + | Address | [address] | | | [place] [address] | + + + | Home Phone | | + + + | Preferred Language | Unknown | + + + | Marital Status | Single | + + + | Roman Catholic Affiliation | 1041 | + + + [...] Team Providers + +------+ + | Care Partition Setter Name | Role | Phone | + +------+ + | Yrn Buckley MD | PCP | | + +------+ + Reason for Visit +--------+--------+ + | Reason | Onset | Comments | | | Date | | +--------+--------+ + | Other | 07/24/ | Appointment reminder call | | | 2018 | | +--------+--------+ + Encounter Details +--------+ + + + + | Date | Type | Department | Care Team | Description | +--------+ + + + + | 07/24/ | Telephone | [facility] | Eros Rothman MD | Other (Appointment | | 2019 | | [place]ROLOG[place] | [address] [place] | reminder call) | | | | [address] [place] | [address] [facility] [place] | | | | | [address] [facility] [place] | [id number] | | | | | [address] | | | | | | [phone] | | | +--------+ + + + [...] Miscellaneous Notes Telephone Encounter - Milagro Garcia Advertising Layout Worker - 07/24/2019 4:10 PM PDTThis call is to remind patient of appointment and lab work required. Name and number provided for him to call back with any questions. documented in this encounter Plan of Treatment +--------+---------+ + + + | Date | Type | Specialty | Care Team | Description | +--------+---------+ + + + | 11/23/ | Office | Cardiology | Aditya Monzon, | | | 2019 | Visit | | [address] | | | | | | [place], | | | | | | [place] [address] | | | | | | [phone] | | | | | | | | +--------+---------+ + + + documented as of this encounter Visit Diagnoses Not on filedocumented in this encounter"
--- OUTSIDE RECORDS SUMMARY | ~2020-08-10 | XMS | Encounter Summary ---
Demographics + + + | Address | [address] | | | [place] [address] | + + + | Home Phone [...] Team Providers + +------+ + | Care Inspector Publications Name | Role | Phone | + [...] | | | | | | | ([facility]) | | | | | | | Procedures | | | | | | | SUPERFICIALI | | | | | | | ZATION AV | | | | | | | FISTULA | | | +--------+--------+ + + + + Encounter Details +--------+---------+ + + + | Date | Type | Department | Care Team | Description | +--------+---------+ + + + | 03/29/ | Surgery | [facility] | Elpidio Gunter MD | SUPERFICIALIZATION | | 2019 | [facility] | [address] | AV FISTULA | | | | OPERATING RO[address] | [place] | | | | | [address] | [address] | | | | | [place] | [phone] | | | | | [address] | | | | | | [phone] | | | +--------+---------+ + + + [...] + + + | Blood Pressure | 144/73 | 03/29/2020 9:10 AM | | | | | PDT | | + + + + + | Pulse | 72 | 03/29/2020 9:10 AM | | | | | PDT | | + + + + + | Temperature | 36.6 C (97.9 F) | 03/29/2020 8:22 AM | | | | | PDT | | + + + + + | Respiratory Rate | 16 | 03/29/2020 9:10 AM | | | | | PDT | | + + + + + | Oxygen Saturation | 96% | 03/29/2020 9:10 AM | | | | | PDT [...] your dialysis shunt, please contact your ph ysician at [phone]. Arteriovenous (AV) Fistula for Dialysis An AV [...] cuts, scrapes, or blows. Date Last Reviewed: 11/08/201619999844-6913 [employer]. [address] [place] [address], [place] [address]. All righ ts reserved. This information is [...] information carefully each time. Talk to your delphi programmer regarding the use of this medicine in children. Special care may be needed. What side effects may I notice from receiving this medicine? Side effects that you should report to your doctor or health pediatric care coordinator as soon as p ossible: allergic [...] attention (report to your doctor or health pediatric care coordinator if they continue or are bothersome): [...] to an official disposal site. Contact the [facility] at [phone] or your [facility] to find a site. If you [...] this medicine? Tell your doctor or health pediatric care coordinator if your pain does not go [...] instructions went over with patikasia kee and driver material handler over phone all questions answered patient sent home with prescriptions. documented in this encounter Consult Notes Alyssa Johnston PA-C - 03/28/2020 3:00 PM PDTFormatting of this note might be different f rom the original. Incomplete []Hide copied text []Hover for details [facility] PREOPERATIVE HISTORY AND PHYSICAL PRIMARY CARE PHYSICIAN: [...] thrill s over the AVF site. Patient's medical center manager is Dr. Rothman. The patient is a right handed pe rson. The patient is receiving hemodialysis on Wednesday, and Saturdayvia right upp er chest tunneled catheter at [facility]. Past Medical History: Diagnosis Date CKD (chronic kidney disease) stage 4, GFR 15-29 ml/min (HCC) Convulsive disorder (HCC) DM (diabetes mellitus), type 1, uncontrolled (HCC) HTN (hypertension) Proteinuria Past Surgical History: Procedure Laterality Date APPENDECTOMY AV FISTULA INSERTION Left 01/05/2020 Procedure: INSERTION AV FISTULA; Surgeon: Elpidio Gunter MD; Location: [facility] MAIN OR OTHER SURGICAL [...] Gunter MD - 03/29/2020 8:11 AM PDT [facility] Service: Vascular Surgery Operative Note Pre-operative Diagnosis: ESRD and fistula too deep to access Post-operative Diagnosis: same Procedure(s): Superficialization of left brachiocephalic fistula Surgeon: Elpidio Gunter MD Activity Director(s): MARCELO Urena (MARCELO was required to help [...] then applied. Patient was then taken to [facility] PACU in stable condition. There were [...] [place], | | | | | | [place] [address] | | | | | | [phone] | | | | | | | [...] | | | POC | performed at [facility];[address] | | LABORATORY | | | | [address];[place], [place] | | | | | | [address] | | | | + + + + + + + + | Specimen | + + | | + + + + + + + | Performing | Address | City/State/Zipcode | Phone Number | | Organization | | | | + + + + + | [facility] | [address] | [place] [address] | [phone] | + + + + + CBC [...] 0.05Comment: Testing | 0.00 - 0.10 | ELBERT | | | Absolute | performed at [facility];[address] | [address] | LABORATORY | | | | [address];[place], [place] | | | | | | [address] | | | | + + + + + + + + | Specimen | + + | Blood | + + + + + + + | Performing | Address | City/State/Zipcode | Phone Number | | Organization | | | | + + + + + | [facility] | [address] | [place] [address] | [phone] | + + + + + Basic [...] | | | | | performed at [facility];[address] | | | | | | [address];[place], [place] | | | | | | [address] | | | | + + + + + + + + | Specimen | + + | Blood | + + + + + + + | Performing | Address | City/State/Zipcode | Phone Number | | Organization | | | | + + + + + | [facility] | [address] | [place] [address] | [phone] | + + + + + POC [...] | | | POC | performed at [facility];[address] | | LABORATORY | | | | [address];[place], [place] | | | | | | [address] | | | | + + + + + + + + | Specimen | + + | | + + + + + + + | Performing | Address | City/State/Zipcode | Phone Number | | Organization | | | | + + + + + | [facility] | [address] | [place] [address] | [phone] | + + + + + documented in this encounter Visit Diagnoses + + | Diagnosis | + + | ESRD on dialysis ([facility]) End stage renal disease | [...] | | +---+---+ + +-------+ +--------+---+---+ | bupivacaine (PF) (MARCAINE) | Given | 03/29/20 | 16 mLs | | | | 0.5% 30 mL with lidocaine 1% 20 | | 20 7:56 | | | | | mL Optesia Mixture LUCINAN, Starting | | AM PDT | | | | | 03/29/20 at 0756, Intra-op | | | | | | + +-------+ +--------+---+---+ +---+---+ | | | +---+---+ + +-------+ +---------+---+---+ | insulin regular (humuLIN R, | Given | 03/29/20 | 3 Units | | | | novoLIN R) injection (vial) 3 | | 20 7:16 | | | | | Units 3 Units, Intravenous, | | AM PDT | | | | | ONCE, 03/29/20 at 0715, For 1 | | | [...] AM PDT | | | | | 03/29/20 at 0630, Pre-op | | | | | | + +---------+ +---+ +---+ +---+---+ | | | +---+---+ + +-------+ +--------+---+---+ | thrombin (recombinant) | Given | 03/29/20 | 5,000 | | | | (RECOTHROM) solution PRN, | | 20 7:56 | Units | | | | Starting 03/29/20 at 0756, | | AM PDT | | | | | Intra-op | | | | | | + +-------+ +--------+---+---+ +---+---+ | | | +---+---+ documented in [...]
--- OUTSIDE RECORDS SUMMARY | ~2020-08-10 | XMS | Encounter Summary ---
Demographics + + + | Address | [address] | | | [place] [address] | + + + | Home Phone [...] Team Providers + +------+ + | Care [employer] Operations Specialist Name | Role | Phone | + [...] | | | | | | | ([facility]) | | | | | [...] + + + + | 03/29/ | Anesthesia | [facility] | Tanja Gunter, | | | 2020 | [facility] | MD [address] | | | | | OPER[address] RO[address] | [place] [address] | | | | | [address] | [phone] | | | | | [place], [place] | | | | | | [address] | | | | | | [phone] | | | +--------+ + + + + Anesthesia Record + + + + + | Procedure Name | Responsible | Anesthesia Start | Anesthesia Stop Time | | | Anesthesiologist | Time | | + + + + + | SUPERFICIALIZATION | Tanja Gunter MD | 03/29/20726 | 03/29/20 08 | | AV FISTULA (Left Arm | | | | | Upper) | | | | + + + + + +----+---+ + + | Da | T | Event | Comment | | te | i | | | | | m | | | | | e | | | +----+---+ + + | 05 | 0 | An Start | Reassessment prior to anesthesia induction/procedure. | | /2 | 7 | | | | 2/ | 2 | | | | 20 | 7 | | | | 20 | | | | +----+---+ + + | | 0 | Antibiotic | | | | 7 | Given | | | | 2 | | | | | 8 | | | +----+---+ + + | | 0 | An | | | | 7 | Induction | | | | 3 | | | | | 3 | | | +----+---+ + + | | 0 | An | | | | 7 | Intubation | | | | 3 | | | | | 5 | | | +----+---+ + + | | 0 | Anesthesia | | | | 7 | Ready | | | | 3 | | | | | 7 | | | +----+---+ + + | | 0 | First | | | | 7 | Inc/Proc St | | | | 4 | | | | | 5 | | | +----+---+ + + | | 0 | [place] | | | | 7 | 43-degrees | | | | 4 | | | | | 6 | | | +----+---+ + + | | 0 | Extubation/ | | | | 8 | Airway LDA | | | | 1 | Removal | | | | 9 | | | +----+---+ + + | | 0 | an stop | | | | 8 | data | | | | 1 | | | | | 9 | | | +----+---+ + + | | 0 | An Stop | Patient handed off to recovery nurse. | | | 2 | | | | | 3 | | | +----+---+ + + +------+ | Meds | +------+ + + + | Name | Total | + + + | fentaNYL | 50 mcg | + + + | lidocaine 2% | 80 mg | + + + | propofol | 150 mg | + + + | propofol infusion | 316.1 mg | + + + | ondansetron | 4 mg | + + + | ePHEDrine | 7.5 mg | + + + | ceFAZolin in dextrose (ANCEF) | 2 g | | IVPB 2 g | | + + + | sodium chloride 0.9% (NS) | 200 mL | | infusion | | + + + + + | Name | + + | N2O Flow Rate (L/Min) | + + | O2 Flow Rate (L/Min) | + + | Insp O2 | + + | Exp N2O | + + | Exp SEV | + + | Air Flow Rate (L/Min) | + + + + | No blood administrations on file. | + + +--------+ + + + | Type | Details | Placement | Removal | +--------+ + + + | Periph | 01/05/20; 0825; Right; Anterior | 01/05/20 0825 by | | | eral | (palmar), Distal; Forearm; | Tiffanie Rodriguez, | | | IV | qecy-kig-dsxmcy catheter system; | RN | | | | 20 gauge; tolerated well | | | +--------+ + + + | Hemodi | 01/05/20; 0945; Intervent. | 01/05/20944 by | | | alysis | Radiology; Dr. Gunter; New | Carlos Vences RN | | | | indication for central line | | | | Cathet | (e.g., hemodynamic monitoring, | | | | er | fluid/medication administration, | | | | | etc.); tunneled, internal jugular | | | | | vein, right | | | +--------+ + + + | Hemodi | 01/05/20; 1500; fistula; upper | 01/05/20 1500 by Chantel | | | alysis | arm, left; hemodialysis | Heidi Roe RN | | +--------+ + + + | Wound | 01/05/20; 1605; Incision; Left; | 01/05/20 1605 by | | | | arm | Russell Florentino RN | | +--------+ + + + | Wound | 03/29/20; 0815; N; Incision; | 03/29/20 0815 by | | | | Left; upper; arm | Kierra Snow RN | | +--------+ + + + | Periph | 03/29/20 (LUISA Ag); 0624; | 03/29/20 06 by | 03/29/20 09 by | | eral | Right; Hand; 20 gauge; | Maggie Mcrae RN | Lucrecia Blake RN | | IV | Hematology, Chemistry; 03/29/20; | | | | | 0939 | | | +--------+ + + + | Airway | Placement Date: 03/29/20; | 03/29/20734 by | 03/29/20818 by | | | Placement Time: 734 (created via | Tanja Gunter MD | Tanja Gunter MD | | | procedure documentation); | | | | | Attempts: 1; Airway Type: | | | | | endotracheal, laryngeal mask; | | | | | Size: 4; Placement Check: exhaled | | | | | CO2 detection device, bilateral | | | | | chest rise; Removal Date: | | | | | 03/29/20; Removal Time: 818 | | | +--------+ + + + documented in this encounter Social History + + + +--------+ + [...] + + documented as of this encounter OR Notes Anesthesia Postprocedure Evaluation - Tanja Gunter MD - 03/29/2020 8:23 AM PDTFormatti ng of this note might be different from the original. ANESTHESIA POSTANESTHESIA EVALUATION Jude Henley 49 y.o. male 1970 [id number] Procedure(s) SUPERFICIALIZATION AV FISTULA (Left Arm Upper) Cooperates? sedated Mental Status sedated Respiratory Satisfactory - Airway patent (self maintained). Cardiovascular Satisfactory - Blood pressure and heart rate acceptable Temperature Satisfactory Pain Satisfactory N/V Control Satisfactory Hydration Satisfactory - No signs of dehydration Adverse Events ADVERSE EVENTS: No adverse events Vitals Value Taken Time Temp 36.6 C (97.9 F) 03/29/2020 8:22 AM Pulse 77 03/29/2020 8:22 AM Resp 16 03/29/2020 8:22 AM BP 113/60 03/29/2020 8:22 AM Arterial Line BP Arterial Line BP 2 SpO2 100 % 03/29/2020 8:22 AM Electronically signed by Tanja Gunter MD 03/29/2020 8:23 AM [facility] nesthesia Procedure Notes - Tanja Gunter MD - 03/29/2020 7:48 AM PDTAssoc iated Order(s): AirwayAnesthesia Airway Placement 03/29/2020 7:35 AM Preprocedure check: patient identified, suction, airway equipment checked, patient reassess ment prior to induction, airway assessed and oxygen Attempts: 1 Airway type: endotracheal and laryngeal mask Size: 4 Cuffed: cuffed Route, reference point: center of mouth Tube secured with: adhesive tape Tube placement verification: bilateral chest rise and carbon dioxide detection Performing provider: Tanja Gunter MD Authorizing provider: Tanja Gunter MD Please see intraoperative grid for any additional medication documentation. nesthesia Preprocedu re Evaluation - Tanja Gunter MD - 03/28/2020 4:42 PM PDTFormatting of this note might b e different from the original. ANESTHESIA PREANESTHESIA EVALUATION Jude Henley 49 y.o. male 1970 [id number] Procedure(s): SUPERFICIALIZATION AV FISTULA (Left Arm Upper) Medical,anesthesia, drug, allergy histories reviewed, NPO status verified. ECG reviewed. Labs reviewed. (-) perioperative beta-leesa/statin not given/taken, reason : not applicable/Not taking Beta-Leesa. Review of Systems / Med History Cardiovascular Exercise tolerance >4 METS (+) hypertension and essential with renal disease and with CKD stage 5 or ESRD. (+) Dysrhythmias: . Pulmonary (-) respiratory failure.(+) tobacco use.(+) current smoker. Gastrointestinal/Hepatic (+) hypercholesterolemia. (-) acid reflux. Renal (+) end-stage renal disease. (+) hemodialysis dialysis type. Dialysis schedule: Wed-Wed-Wed . Endocrine (+) Diabetes: type 1, using insulin, uncontrolled (Hgb A1C >= 6.5), with complications. Hematology/Other (+) anemia: nutritional. Obstetrics (+) proteinuria. Neuromuscular (+) seizures: Additional Comments: 49 yo male with BMI 27, HTN, HLD, DM, h/o sz, ESRD on HD , , Wed s/p left AVF 01/05/20 under sedation and local presents for superficialization of AVF. Hct 23% Physical Exam Airway MP II, TM >3 FB, Mouth opening >2 FB. Neck: full ROM, extends >30 degrees. Jaw protrus ion normal. Facial hair present: Yes Dental (+) dentures-lower and dentures-upper. CV Rhythm regular. Rate normal. Pulm Clear to auscultation bilaterally. Neuro grossly normal. Anesthesia Plan ASA: 4 Type: MAC. Plan GA w/ LMA, piv Induction: Intravenous. Potential problems: None anticipated. Monitors: Standard ASA monitors. Consent statement: Anesthetic plan, alternatives, risks and benefits discussed with patient. backache, , disability, drug reaction, heart problems, ICU placement, infection, muscle aches, nausea, p ain, perioperative CV events, post-op intubation, respiratory events, sore throat, stroke, v oice injury, delirium Blood transfusion concerns: Consenting person understands and agrees to proceed. documented in this en counter Miscellaneous Notes Anesthesia Post-op Handoff - Tanja Gunter MD - 03/29/2020 8:23 AM PDTFormatting of thi s note might be different from the original. ANESTHESIA HANDOFF NOTE Jude Henley 49 y.o. male 1970 [id number] SUPERFICIALIZATION AV FISTULA (Left Arm Upper) HANDOFF NOTE Handoff Protocol Used: post-procedure handoff checklist completed The following were completed during the transfer of care: 1. Identification of patient 2. Identification of responsible practitioner (primary service) 3. Discussion of pertinent medical history 4. Discussion of the surgical/procedure course (procedure, reason for surgery, procedure pe rformed) 5. Intraoperative anesthetic management and issues/concerns 6. Expectations/plans for the early post-procedure period 7. Opportunity for questions and acknowledgement of understanding of report from receiving team Patient Location: Phase I Condition: sedated Airway/O2: face mask with O2 Multimodal analgesia: multimodal analgesia used between 6 hours prior to anesthesia start t o PACU discharge The significant anesthesia concerns and VS in Epic were reviewed with the receiving team. Tanaj Gunter MD 03/29/2020 8:23 AM [facility] documented in this encounter Plan of Treatment +--------+---------+ + + + | Date | Type | Specialty | Care Team | Description | +--------+---------+ + + + | 09/30/ | Office | Cardiology | Aditya Monzon, | | 2019 | Visit | | MD [address] | | | | | | [place], | | | | | | [place] [address] | | | | | | [phone] | | | | | | | | +--------+---------+ + + + documented as of this encounter Procedures + +--------+ + + + | Procedure Name | Priori | Date/Time | Associated Diagnosis | Comments | | | ty | | | | + +--------+ + + + | ANE AIRWAY NOTE | Routin | 03/29/2020 | | Results for this | | | e | 7:48 AM | | procedure are in the | | | | PDT | | results section. | + +--------+ + + + documented in this encounter Results Airway (03/29/2020 7:48 AM PDT) + + + | Narrative | Performed At | + + + | Tanja Gunter MD 03/29/2020 7:49 AM Anesthesia Airway | | | Placement 03/29/2020 7:35 AM Preprocedure check: patient | | | identified, suction, airway equipment checked, patient reassessment | | | prior to induction, airway assessed and oxygen Attempts: 1 Airway | | | type: endotracheal and laryngeal mask Size: 4 Cuffed: cuffed Route, | | | reference point: center of mouth Tube secured with: adhesive tape | | | Tube placement verification: bilateral chest rise and carbon dioxide | | | detection Performing provider: Tanja Gunter MD Authorizing | | | provider: Tanja Gunter MD Please see intraoperative grid | | | for any additional medication documentation. | | + + + documented in this encounter Visit Diagnoses Not on filedocumented in this encounter Administered Medications + +--------+ +------+------+------+ | Medication Order | MAR | Action | Dose | Rate | Site | | | Action | Date | | | | + +--------+ +------+------+------+ | ceFAZolin in dextrose (ANCEF) | Given | 03/29/20 | 2 g | | | | IVPB 2 g 2 g, Intravenous, | | 20 7:28 | | | | | Administer over 30 Minutes, ONCE, | | AM PDT | | | | | 03/29/20 at 0630, For 1 dose, | | | | | | | Keep in refrigerator., Pre-op, | | | | | | | Indications: Surgical Prophylaxis | | | | | | + +--------+ +------+------+------+ +---+---+ | | | +---+---+ + +-------+ +--------+---+---+ | ePHEDrine 5 mg/mL injection | Given | 03/29/20 | 7.5 mg | | | | Intravenous, PRN, Starting Fri | | 20 8:02 | | | | | 03/29/20 at 0802, Anesthesia | | AM PDT | | | | | Intra-op | | | | | | + +-------+ +--------+---+---+ +---+---+ | | | +---+---+ + +-------+ +--------+---+---+ | fentaNYL (PF) injection | Given | 03/29/20 | 50 mcg | | | | Intravenous, PRN, Starting Fri | | 20 7:32 | | | | | 03/29/20 at 0732, Anesthesia | | AM PDT | | | | | Intra-op | | | | | | + +-------+ +--------+---+---+ +---+---+ | | | +---+---+ + +-------+ +-------+---+---+ | lidocaine (PF) 2% injection | Given | 03/29/20 | 80 mg | | | | Intravenous, PRN, Starting Fri | | 20 7:32 | | | | | 03/29/20 at 0732, Anesthesia | | AM PDT | | | | | Intra-op | | | | | | + +-------+ +-------+---+---+ +---+---+ | | | +---+---+ + +-------+ +------+---+---+ | ondansetron (ZOFRAN) injection | Given | 03/29/20 | 4 mg | | | | Intravenous, PRN, Starting Fri | | 20 8:07 | | | | | 03/29/20 at 0807, Anesthesia | | AM PDT | | | | | Intra-op | | | | | | + +-------+ +------+---+---+ +---+---+ | | | +---+---+ + +-------+ +--------+---+---+ | propofol (DIPRIVAN) injection | Given | 03/29/20 | 150 mg | | | | Intravenous, PRN, Starting Fri | | 20 7:33 | | | | | 03/29/20 at 0732, Anesthesia | | AM PDT | | | | | Intra-op | | | | | | + +-------+ +--------+---+---+ +---+---+ | | | +---+---+ + + + + +-------+---+ | propofol infusion (DIPRIVAN) 10 | Rate/Dos | 03/29/20 | 80 | 43.1 | | | mg/mL infusion Intravenous, | e Change | 20 7:57 | mcg/kg/m | mL/hr | | | CONTINUOUS PRN, Starting Fri | | AM PDT | in | | | | 03/29/20 at 0733, Anesthesia | | | | | | | Intra-op | | | | | | + + + + +-------+---+ +---------+ + +-------+---+ | New Bag | 03/29/20 | 100 | 53.9 | | | | 20 7:33 | mcg/kg/m | mL/hr | | | | AM PDT | in | | | +---------+ + +-------+---+ +---+---+ | | | +---+---+ documented in [...]
--- OUTSIDE RECORDS SUMMARY | ~2020-08-10 | XMS | Encounter Summary ---
Demographics + + + | Address | [address] | | | [place] [address] | + + + | Home Phone | | + + + | Preferred Language | Unknown | + + + | Marital Status | Single | + + + | Worship Affiliation | Unknown | + + + | Race | White | + + + | Ethnic Group | Not or | + + + Author + + + | Author | [facility] | + + + | Organization | [facility] | + + + | [...] Team Providers + +------+ + | Care Psychologist Name | Role | Phone | + [...] | | | | | Corrine [place], | [place], [place] | | | | | [place] [address] | [address] | | | | | [phone] | | | +--------+ + + + [...] transplant evaluation CKD Stage: ESRD on dialysis [place] diagnosis: Diabetes Mellitus - Type II History and [place] updated to include above. Chart reviewed for prior referrals and/or evaluations. Concerns from [facility] intake, referring notes, or above none Routed to [facility] and [facility] to schedule consult. elephone Encounter - Kimberli [...] [place]: No a. If yes, route to personal financial advisor. 4. Have you worked with any other transplant centers: No a. If Yes, Where: 5. Do you live alone: No a. If no, who do you live with (if children, get age): 2- sister & father 6. What is your Marital Status: a. What is your Partner s name (If applicable): 7. Do you currently work: No 8. 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 What is the highest level of [...] 17. What is your preferred spoken language: [place] 18. What is your preferred written language: [place] 19. Are you on dialysis: Yes 20. [...] | | 2019 | Visit | | [facility] [address] [facility] | | | | | | [facility] | | | | | | [place], [place] | | | | | | [address] | | | | | | [phone] | | | | | | | | +--------+---------+ + + + documented as of this encounter Visit Diagnoses Not on filedocumented in this encounter"
--- OUTSIDE RECORDS SUMMARY | ~2020-08-10 | XMS | Encounter Summary ---
Demographics + + + | Address | [address] | | | [place] [address] | + + + | Home Phone | | + + + | Preferred Language | Unknown | + + + | Marital Status | Single | + + + | Gnosticism Affiliation | 1041 | + + + | Race | White | + + + | Ethnic Group | Not or | + + + Author + + + | Author | [facility] | | | and [place] | + + + | Organization | [facility] | | | and [...] Team Providers + +------+ + | Care Anthropology Department Chair Name | Role | Phone | + +------+ + | Yrn Buckley MD | PCP | | + +------+ + Reason for Visit + +--------+ + | Reason | Onset | Comments | | | Date | | + +--------+ + | Procedure | 03/28/ | | | | 2020 | | + +--------+ + Encounter Details +--------+ + + + + | Date | Type | Department | Care Team | Description | +--------+ + + + + | 03/28/ | Telephone | [facility] | Eplidio Gunter MD | Procedure | | 2020 | | VASCULAR SURGERY | [address] | | | | | [address] [place] | [place], [place] | | | | | [place], [place] | [address] | | | | | [address] | [phone] | | | | | [phone] | | | +--------+ + + + [...] Telephone Encounter - Rupal Black RN - 03/28/2020 11:14 AM PDTReturn call made to Shellie cross. His scheduled arrival time is 0630. He will arrange transportation now. He will not yasmany [facility] if there is any issue. Electronically signed by Rupal Black RN at 03/09 11:14 AM PDTTelephone Encounter - Keely Adan - 03/28/2020 9:28 AM PDTRobert, i s calling regarding Procedure and would like a call back. Additional Call Details: Requesting a call back to find out his procedure time for tomorro w 03/29. Patient stated he lives in [place] and needs to arrange a ride. Please contact on home number listed. If this is a symptom based call, was patient offered triage? Not Applicable If this is a symptom based call and you were unable to immediately transfer the call to a mikel varela hospital director was caller made aware that if at [...] [place], | | | | | | [place] [address] | | | | | | [phone] | | | | | | | [...]
--- OUTSIDE RECORDS SUMMARY | ~2020-08-10 | XMS | Encounter Summary ---
Demographics + + + | Address | [address] | | | [place] [address] | + + + | Home Phone | | + + + | Preferred Language | Unknown | + + + | Marital Status | Single | + + + | Denominational Affiliation | 1041 | + + + | Race | White | + + + | Ethnic Group | Not or | + + + Author + + + | Author | [facility] | | | and [place] | + + + | Organization | [facility] | | | [...] Team Providers + +------+ + | Care Electrical Research Engineer Name | Role | Phone | + +------+ + | Ynr Buckley MD | PCP | | + +------+ + Reason for Visit + +--------+ + | Reason | Onset | Comments | | | Date | | + +--------+ + | Referral | 07/24/ | status | | | 2019 | | + +--------+ + Encounter Details +--------+ + + + + | Date | Type | Department | Care Team | Description | +--------+ + + + + | 07/24/ | Telephone | [facility] | Kamari Mendoza | Referral (status ) | | 2019 | | [facility] | MD [address] | | | | | PHYSICAL MEDICINE | [facility] | | | | | AND REHABILITATION | [place] [address] | | | | | [address] | [place] [address] | | | | | [place], [place] | [phone] | | | | | [address] | | | | | | [phone] | | | +--------+ + + + [...] this encounter Miscellaneous Notes Telephone Encounter - Graciela Garcia - 08/01/2019 10:49 AM Manfred, is calling again fo r Referral (status ) and would like a call back. Additional Call Details: Caller is asking on the status of the referral that was re-faxed on 07/27. Please call back at [phone] option 1. elephone Encounter - Narcisa Rader CMA - 07/27/2019 10:31 AM PDTReturned call to Dr. Fei Vang. They are refax ing the referral so that Dr. Weaver can review elephone Encounter - Carmella Luke - 07/24/2019 8:34 AM Akshat Dixon, is calling regarding Referral (status ) and would like a call back. Additional Call Details: Calling to check the status of an incoming referral that was faxe d over on 05/31. Call Samanta back at [phone] option 1. If this is a symptom based call, was patient offered triage? Not Applicable If this is a symptom based call and you were unable to immediately transfer the call to a p nichole work order detailer was caller made aware that if at [...] | | | | | | [place] [address] | | | | | | [phone] | | | | | | | | +--------+---------+ + + + documented as of this encounter Visit Diagnoses Not on filedocumented in this encounter"
--- OUTSIDE RECORDS SUMMARY | ~2020-08-10 | XMS | Encounter Summary ---
Demographics + + + | Address | [address] | | | [place] [address] | + + + | Home Phone [...] Team Providers + +------+ + | Care Dental Equipment Mechanic Name | Role | Phone | [...] to | | 2019 | Support | [facility] | [address] | SARS-associated | | | | [address] [place] | [address], | coronavirus (Primary | | | | [address] [place], [place] | [place] [address] | Dx) | | | | [address] | [phone] | | | | | [phone] | | | +--------+ + + + [...] in this encounter Progress Notes Jerome Vaughn, Pharmacy Tech - 03/27/2020 2:30 PM PDTPatient presents to [...] [place], | | | | | | [place] [address] | | | | | | [phone] | | | | | | | [...]
--- OUTSIDE RECORDS SUMMARY | ~2020-08-10 | XMS | Encounter Summary ---
Demographics + + + | Address | [address] | | | [place] [address] | + + + | Home Phone | | + + + | Preferred Language | Unknown | + + + | Marital Status | Single | + + + | Yazidism Affiliation | 1041 | + + + | Race | White | + + + | Ethnic Group | Not or | + + + Author + + + | Author | [facility] | | | and [place] | + + + | Organization | [facility] | | [...] Team Providers + +------+ + | Care Accounting Instructor Name | Role | Phone | + +------+ + | Yrn Buckley MD | PCP | | + +------+ + Reason for Visit +--------+--------+ + | Reason | Onset | Comments | | | Date | | +--------+--------+ + | Other | 12/25/ | Fistula | | | 2020 | | +--------+--------+ + Encounter Details +--------+ + + + + | Date | Type | Department | Care Team | Description | +--------+ + + + + | 12/25/ | Telephone | [facility] | Eros Rothman MD | Other (Fistula ) | | 2020 | | NEPHROLOGY [facility] | [address] [place] | | | | | [address] [place] | [address] [facility], [place] | | | | | [address] [place], [place] | [address] | | | | | [address] | | | | | | [phone] | | | +--------+ + + + [...] Miscellaneous Notes Telephone Encounter - Milagro Garcia Economic Developer - 12/25/2019 3:34 PM Jose Roberto Rothman patient is not a candidate for PD catheter at this time patient will need fistula f or hemodialysis. Per Dr. Rothman call Dr. Gunter's staff to see if patient can be scheduled for p ossible fistula placement as soon as possible. Called vascular surgery and spoke to Keren she stated that patient will need imaging for p ossible fistula placement. Requested that she call patient to be scheduled as soon as cierra piper for mapping. She stated that she would call patient to schedule no further question at th is time. documented in this encounter Plan of Treatment +--------+---------+ + + + | Date | Type | Specialty | Care Team | Description | +--------+---------+ + + + | 09/30/ | Office | Cardiology | Aditya Monzon, | | 2019 | Visit | | MD [address] | | | | | | [place], | | | | | | [place] [address] | | | | | | [phone] | | | | | | | | +--------+---------+ + + + documented as of this encounter Visit Diagnoses Not on filedocumented in this encounter"
--- OUTSIDE RECORDS SUMMARY | ~2020-08-10 | XMS | Encounter Summary ---
Demographics + + + | Address | [address] | | | [place] [address] | + + + | Home Phone [...] Team Providers + +------+ + | Care Clerical Associate Name | Role | Phone | + +------+ + | Yrn Buckley MD | PCP | | + +------+ + Encounter Details +--------+---------+ + + + | Date | Type | Department | Care Team | Description | +--------+---------+ + + + | 11/13/ | Office | [facility] | Eros Rothman MD | CKD (chronic kidney | | 2020 | Visit | NEPHROLOGY [place] | [address] [place] | disease) stage 5, | | | | [address] | [address] [place], [place] | GFR less than 15 | | | | [address] [place] [address] | [address] | ml/min (HCC) | | | | [place], [place] | | (Primary Dx); Anemia | | | | [address] | | of chronic kidney | | | | [phone] | | failure, stage 5 | | [...] here. I see no need for acute SKILL LABOR at this time. I sent him for [...] intact PTH, uric acid, Urine total prot jfr-di-pvjlkzliux ratio before he comes back in 1 [...] 40's, Diabetes Mellitus since his e denise s. [...] Take 40 mg by mouth daily. (Patient blair solorio: Reported on 11/13/2019), Disp: , Rfl: metoprolol [...] here. I see no need for acute SKILL LABOR. I sent him for a repeat RFP, CBC in 2 weeks. He will report back to me his home BP readings in 2 weeks. At that time, I will decide w hether any change to his vasoactive regimen is warranted. He will F/U with your office regularly. He will have a RFP, CBC, Iron studies, Ferritin, intact PTH, uric acid, Urine total prot eix-up-femqgfcpzt ratio before he comes back in [address]. [address] Buckley for the opportunity to see this patient in F/U on an urgent basis todixon yousif. Please do not hesitate to call me at any time with questions or concerns. Truly yours, Eros Rothman MD [facility] documented in this enco unter Plan [...] | | | | | | [place] [address] | | | | | | [phone] | | | | | | | | +--------+---------+ + + + documented as of this encounter Visit Diagnoses + + | Diagnosis | + + | CKD (chronic kidney disease) stage 5, GFR less than 15 ml/min ([facility]) - Primary Chronic | | kidney disease, Stage V | + + | Anemia of chronic kidney failure, stage 5 ([facility]) | + + | Nephrotic range proteinuria Proteinuria | + + | Metabolic acidosis Acidosis | + + | At high risk for electrolyte imbalance | + + | Essential hypertension Unspecified essential hypertension | + + | Hyperphosphatemia Disorders of phosphorus metabolism | + + documented in this encounter"
--- OUTSIDE RECORDS SUMMARY | ~2020-08-10 | XMS | Encounter Summary ---
Demographics + + + | Address | [address] | | | [place] [address] | + + + | Home Phone | | + + + | Preferred Language | Unknown | + + + | Marital Status | Single | + + + | Islam Affiliation | 1041 | + + + [...] Providers + +------+ + | Care Supervisor Forming And Tempering Name | Role | Phone | + [...] | | | | | dialysis | [address] | | | | | | ([facility]) AVF | [place] | | | | | | (arterioveno | [place], [place] | | | | | | us fistula) | [address] | | | | | | ([facility]) | Phone: | | | | | | Procedures | [phone] | | | | | | IR Inj | Fax: | | | | | | Dialysis | [phone] | | | | | | Circuit | | | +--------+--------+ + + + + Encounter Details +--------+ + + + + | Date | Type | Department | Care Team | Description | +--------+ + + + + | 03/07/ | Orders Only | [facility] | Cirilo Tijerina, PRE | ESRD on dialysis | | 2020 | | VASCULAR SURGERY | [address] | ([facility]) (Primary Dx); | | | | [address] | [place], [place] | AVF (arteriovenous | | | | [place], [place] | [address] | fistula) ([facility]) | | | | [address] | | | | | | [phone] | | | +--------+ + + + [...] | +--------+---------+ + + + | 09/30/ Office | Cardiology | Aditya Monzon, | | | 2019 | Visit | | MD [address] | | | | | | [place], | | | | | | [place] [address] | | | | | | [phone] | | | | | | | | +--------+---------+ + + + documented as of this encounter Results IR Inj Dialysis Circuit (03/20/2020 10:50 AM [...] fistula | | | PROCEDURELeft arm fistulogram Shelley Gunter MD ASSISTANTNone | | | ANESTHESIA: [...] | + + | AVF (arteriovenous fistula) ([facility]) Arteriovenous fistula, acquired | + + documented [...]
--- OUTSIDE RECORDS SUMMARY | ~2020-08-10 | XMS | Encounter Summary ---
Demographics + + + | Address | [address] | | | [place] [address] | + + + | Home Phone | | + + + | Preferred Language | Unknown | + + + | Marital Status | Single | + + + | Pentecostalism Affiliation | 1041 | + + + [...] Team Providers + +------+ + | Care Body Shop Manager Name | Role | Phone | [...] Provider Unknown | | | | | [place], [place] | [phone] | | | | | [address] | | | | | | [phone] | | | +--------+ + + + [...] | | | | | | [place] [address] | | | | | | [phone] | | | | | | | [...]
--- OUTSIDE RECORDS SUMMARY | ~2020-08-10 | XMS | Encounter Summary ---
Demographics + + + | Address | [address] | | | [place] [address] | + + + | Home Phone [...] Author + + + | Author | [facility] | | | and [place] | + + + | Organization | [facility] | | | [...] Team Providers + +------+ + | Care Telephone Directory Distributor Driver Name | Role | Phone | + +------+ + | Yrn Buckley MD | PCP | | + +------+ + Encounter Details +--------+ + + + + | Date | Type | Department | Care Team | Description | +--------+ + + + + | 03/25/ | Preadmit | [facility] | Elpidio Gunter MD | | | 2019 | Visit | CENTER PREADMIT | [address] | | | | | CLINIC [address] | [place], [place] | | | | | [address] [place], [place] | [address] | | | | | [address] | [phone] | | | | | [phone] | | | +--------+ + + + [...] + + documented as of this encounter Patient Instructions Instructions Gina Hernandez RN - 03/25/2020Formatting of this note might be different fro m the original. Outpatient Medications Marked as Taking for the 03/25/20 encounter (Preadmit Visit) with [facility] ROOM 1 Medication Sig Instructions amLODIPine (NORVASC) 5 mg tablet Take 5 mg by mouth Daily. TAKE day of procedure Ascorbic Acid (VITAMIN C) 1000 MG tablet Take 1,000 mg by mouth Daily. DO NOT TAKE day of procedure atorvaSTATin (LIPITOR) 20 mg tablet Take 20 mg by mouth nightly. TAKE night before proc edure calcium acetate (CALCIUM ACETATE) 667 mg capsule Take 1 capsule by mouth 3 times daily (with meals). DO NOT TAKE day of procedure indapamide (LOZOL) 1.25 MG tablet Take 1.25 mg by mouth Daily. DO NOT TAKE day of proce dure insulin - MIX insulin NPH-insulin regular 70/30 (HUMULIN 70/30) 100 units/mL injection Inject into the skin 2 (two) times daily before meals. (Patient taking differently: Inject 5 Units under the skin 2 times daily (before meals). Per pt- takes 5 units in the morning an d 5 units at night.) TAKE 1/2 dose morning of procedure senna (SENOKOT) 8.6 mg tablet Take 1 tablet by mouth Twice daily as needed for Constip ation. DO NOT TAKE day of procedure documented in this encounter Miscellaneous Notes Preadmit Clinic Note - Gina Hernandez RN - 03/25/2020 12:30 PM PDTPatient meets mets of f our per AHA guidelines, denies chest pain and SOB. Pt given Pre- op fasting guidelines, medi cation instructions and shower instructions. The patient states understanding. Electronicall y signed by Gina Hernandez RN at 03/25/2020 12:45 PM PDTdocumented in this encounter Plan of Treatment +--------+---------+ + + + | Date | Type | Specialty | Care Team | Description | +--------+---------+ + + + | 09/30/ | Office | Cardiology | Aditya Monzon, | | | 2019 | Visit | | MD [address] | | | | | | [place], | | | | | | [place] [address] | | | | | | [phone] | | | | | | | [...]
--- OUTSIDE RECORDS SUMMARY | ~2020-08-10 | XMS | Encounter Summary ---
Demographics + + + | Address | [address] | | | [place] [address] | + + + | Home Phone | | + + + | Preferred Language | Unknown | + + + | Marital Status | Single | + + + | Advent Affiliation | 1041 | + + + | Race | White | + + + | Ethnic Group | Not or | + + + Author + + + | Author | [facility] | | | and [place] | + + + | Organization | [facility] | | [...] Team Providers + +------+ + | Care Wheelchair Rental Clerk Name | Role | Phone | + +------+ + | Yrn Buckley MD | PCP | | + +------+ + Encounter Details +--------+ + + + + | Date | Type | Department | Care Team | Description | +--------+ + + + + | 01/03/ | Orders Only | [facility] | Cirilo Tijerina DNP | CKD (chronic kidney | | 2020 | | VASCULAR SURGERY | [address] | disease) requiring | | | | [address] [place] | [place], [place] | chronic dialysis | | | | [place], [place] | [address] | (HCC) (Primary Dx) | | | | [address] | | | | | | [phone] | | | +--------+ + + + [...] | | | | | | [place] [address] | | | | | | [phone] | | | | | | (Fax) | | +--------+---------+ + + + documented as of this encounter Visit Diagnoses + + | Diagnosis | + + | CKD (chronic kidney disease) requiring chronic dialysis (HCC) - Primary End stage | | renal disease | + + documented in this encounter"
--- OUTSIDE RECORDS SUMMARY | ~2020-08-10 | XMS | Encounter Summary ---
Demographics + + + | Address | [address] | | | [place] [address] | + + + | Home Phone | | + + + | Preferred Language | Unknown | + + + | Marital Status | Single | + + + | Voodoo Affiliation | [id number] | + + + | Race | White | + + + | Ethnic Group | Not or | + + + Author + + + | Author | [facility] | | | and [place] | + + + | Organization | [facility] | | [...] Team Providers + +------+ + | Care Global Marketing Intern Name | Role | Phone | + [...] | +--------+ + + + + | 01/05/ | Anesthesia | [facility] | Ruslan Troncoso | | | 2020 | Event | [facility] | [address] | | | | | [address] | [address] | | | | | [address] | [place], [place] | | | | | [place], [place] | [address] | | | | | [address] | [phone] | | | | | [phone] | | | | | | | Sherry Law | | | | | | MD Adilene SARAVIA | | | | | | [place] [address] | | | | | | [phone] | | | | | | | | +--------+ + + + + Anesthesia Record + + + + + | Procedure Name | Responsible | Anesthesia Start | Anesthesia Stop Time | | | Anesthesiologist | Time | | + + + + + | INSERTION AV FISTULA | Ruslan Bob | 01/05/20 1539 | 01/05/20 1627 | | (Left Arm Upper) | RY Troncoso | | | + + + + + +----+---+ + + | Da | T | Event | Comment | | te | i | | | | | m | | | | | e | | | +----+---+ + + | 02 | 1 | | | | /2 | 5 | | | | 8/ | 3 | | | | 20 | 7 | | | | 20 | | | | +----+---+ + + | | 1 | An Checkout | Pre-use anesthesia machine/equipment checkout. | | | 5 | | | | | 3 | | | | | 9 | | | +----+---+ + + | | 1 | An Start | Reassessment prior to anesthesia induction/procedure. | | | 5 | | | | | 3 | | | | | 9 | | | +----+---+ + + | | 1 | An | | | | 5 | Induction | | | | 4 | | | | | 4 | | | +----+---+ + + | | 1 | First | | | | 5 | Inc/Proc St | | | | 5 | | | | | 2 | | | +----+---+ + + | | 1 | an stop | | | | 6 | data | | | | 2 | | | | | 4 | | | +----+---+ + + | | 1 | An Stop | Patient handed off to recovery nurse. | | | 2 | | | | | 7 | | | +----+---+ + + +------+ | Meds | +------+ + + + | Name | Total | + + + | lidocaine 2% | 40 mg | + + + | propofol | 30 mg | + + + | propofol infusion | 157.25 mg | + + + | ceFAZolin in dextrose (ANCEF) | 2 g | | IVPB 2 g | | + + + | heparin | 3,000 Units | + + + | sodium chloride 0.9% (NS) | 0 mL | | infusion | | + + + + + | Name | + + | N2O Flow Rate (L/Min) | + + | O2 Flow Rate (L/Min) | + + | Insp O2 | + + | Exp N2O | + + | Air Flow Rate (L/Min) | + + | Secondary O2 Flow Rate | + + + + | No blood administrations on file. | + + +--------+ + + + | Type | Details | Placement | Removal | +--------+ + + + | Periph | 01/05/20; 0825; Right; Anterior | 01/05/20 08 by | | | eral | (palmar), Distal; Forearm; | Tiffanie Rodriguez, | | | IV | [id number]-[id number]-ztvybz catheter system; | RN | | | [...] +--------+ + + + | Periph | 01/04/20; 2101; Right; Forearm; | 01/04/20 210 by | 01/07/20 1152 by | | zonia | 18 gauge; Hematology, Chemistry, | Tonya Gill RN | Floresita Ruiz | | IV | Coagulation; no longer indicated, | | LUISA Viera | | | lumen/catheter not patent; | | | | | 01/07/20; 1152 | | | +--------+ + + + documented in this encounter Social History + + + +--------+------+ | [...] encounter OR Notes Anesthesia Postprocedure Evaluation - Ruslan Troncoso CRNA - 01/05/2020 4:[address] ANESTHESIA POSTANESTHESIA EVALUATION Jude Henley 49 y.o. male 1970 [id number] Procedure(s) INSERTION AV FISTULA (Left Arm Upper) Cooperates? Yes Mental Status Performs simple tasks. Respiratory Satisfactory - Airway patent (self maintained). Cardiovascular Satisfactory - Blood pressure and heart rate acceptable Temperature Satisfactory Pain Satisfactory N/V Control Satisfactory Hydration Satisfactory - No signs of dehydration Adverse Events ADVERSE EVENTS: No adverse events Vitals Value Taken Time Temp 36.5 C (97.7 F) 01/05/2020 4:27 PM Pulse 67 01/05/2020 4:27 PM Resp 16 01/05/2020 4:27 PM BP 180/76 01/05/2020 4:27 PM Arterial Line BP Arterial Line BP 2 SpO2 Electronically signed by Ruslan Troncoso CRNA 01/05/2020 4:29 PM [facility] nesthesia Preprocedure Evaluation - Yamilex Ramsey MD - 01/05/2020 2:44 PM PST ANESTHESIA PREANESTHESIA EVALUATION Jude Henley 49 y.o. male 1970 [id number] Procedure(s): INSERTION AV FISTULA (Left Arm Upper) Medical,anesthesia, drug, allergy histories reviewed, NPO status verified. ECG reviewed. Labs reviewed. (+) perioperative beta-blaze/statin given/taken. Review of Systems / Med History Anesthesia History No anesthesia complications except where noted below. Family Anesthesia History Family Anesthesia Negative except where noted below. Cardiovascular Exercise tolerance >4 METS (+) hypertension . Pulmonary Negative except where noted below.(+) tobacco use.(+) ex-smoker. Gastrointestinal/Hepatic (+) hypercholesterolemia. Renal (+) end-stage renal disease. (+) hemodialysis dialysis type. Dialysis schedule: Wed-Wed-Wed . Endocrine (+) Diabetes: type 1, using insulin, with complications. Hematology/Other (+) anemia: nutritional. (+) coagulopathy. Psychology Negative except where noted below. Additional Comments: Principal Problem: CKD (chronic kidney disease) stage 5, GFR less than 15 ml/min Active Problems: Type 2 diabetes mellitus with diabetic nephropathy, with long-term current use of insulin . Last dialysis was today. Pt received pRBC prior to dialysis. Anemia of chronic kidney failure stage 5 Essential hypertension Physical Exam Airway MP I, TM >3 FB, Neck: full ROM, Jaw protrusion normal. Facial hair present: Yes Dental (+) dentures-lower and dentures-upper. CV cardiovascular normal Rhythm regular. Rate tachycardia. Pulm Clear to auscultation bilaterally. Neuro grossly normal. Anesthesia Plan ASA: 3 Type: TIVA, general. Discussed with patient that anesthesia is a spectrum from minimal to deep sedation to general anesthesia. Patient seems to understand. Risks and benefits discu ssed with patient. Induction: Intravenous. Potential problems: None anticipated. Monitors: Standard ASA monitors. Postop Pain Management: Consent statement: Anesthetic plan, alternatives, risks and benefits discussed with patient. discussed risks t o teeth, drug reaction, heart problems, infection, muscle aches, nausea, pain, perioperative CV events, respiratory events, sore throat, stroke, voice injury, delirium Consenting person understands and agrees to proceed. Electronically Signed by: Yamilex Ramsey MD ESi date/time: 01/05/2020 3:28 PM documented in this enc ounter Miscellaneous Notes Anesthesia Post-op Handoff - Ruslan Troncoso CRNA - 01/05/2020 4:28 PM PSTFormatt ing of this note might be different from the original. ANESTHESIA HANDOFF NOTE Jude Henley 49 y.o. male 1970 [id number] INSERTION AV FISTULA (Left Arm Upper) HANDOFF NOTE [...] report from receiving team Patient Location: Phase II Condition: responds to stimuli and awake Airway/O2: no supplemental O2 Multimodal analgesia: multimodal analgesia used between 6 hours prior to anesthesia start t o PACU discharge The significant anesthesia concerns and VS in Epic were reviewed with the receiving team. Ruslan Troncoso CRNA 01/05/2020 4:28 PM [facility] documented in this encounter Plan of Treatment +--------+---------+ + + + | Date | Type | Specialty | Care Team | Description | +--------+---------+ + + + | 09/30/ | Office | Cardiology | Aditya Monzon, | | 2019 | Visit | | MD [address] | | | | | | [place], | | | | | | [place] [address] | | | | | | [phone] | | | | | | | [...] ceFAZolin in dextrose (ANCEF) | Given | 01/05/20 | 2 g | | | | IVPB 2 g 2 g, Intravenous, | | 20 3:41 | | | | | Administer over 30 Minutes, Prior | | PM PST | | | | | to Incision, Starting Fri | | | | | | | 01/05/20 at 1503, For 1 dose, Keep | | | | | | | in refrigerator., Indications: | | | | | | | Surgical Prophylaxis | | | | | | + +--------+ +------+------+------+ +---+---+ | | | +---+---+ + +-------+ +--------+---+---+ | heparin 1,000 units/mL | Given | 01/05/20 | 3,000 | | | | injection Intravenous, PRN, | | 20 4:02 | Units | | | | Starting 01/05/20 at 1602, | | PM PST | | | | | Anesthesia Intra-op | | | | | | + +-------+ +--------+---+---+ +---+---+ | | | +---+---+ + +-------+ +-------+---+---+ | lidocaine (PF) 2% injection | Given | 01/05/20 | 40 mg | | | | Intravenous, PRN, Starting Fri | | 20 3:44 | | | | | 01/05/20 at 1544, Anesthesia | | PM PST | | | | | Intra-op | | | | | | + +-------+ +-------+---+---+ +---+---+ | | | +---+---+ + +-------+ +-------+---+---+ | propofol (DIPRIVAN) injection | Given | 01/05/20 | 30 mg | | | | Intravenous, PRN, Starting Fri | | 20 3:44 | | | | | 01/05/20 at 1544, Anesthesia | | PM PST | | | | | Intra-op | | | | | | + +-------+ +-------+---+---+ +---+---+ | | | +---+---+ + +---------+ + +-------+---+ | propofol infusion (DIPRIVAN) 10 | New Bag | 01/05/20 | 50 | 27.8 | | | mg/mL infusion Intravenous, | | 20 3:44 | mcg/kg/m | mL/hr | | | CONTINUOUS PRN, Starting Fri | | PM PST | in | | | | 01/05/20 at 1544, Anesthesia | | | | | | | Intra-op | | | | | | + +---------+ + +-------+---+ +---+---+ | | | +---+---+ + +---------+ +--------+ +---+ | sodium chloride [...]
--- OUTSIDE RECORDS SUMMARY | ~2020-08-10 | XMS | Encounter Summary ---
Demographics + + + | Address | [address] | | | [place] [address] | + + + | Home Phone [...] Team Providers + +------+ + | Care Ping Pong Table Assembler Name | Role | Phone | + +------+ + | Yrn Buckley MD | PCP | | + +------+ + Encounter Details +--------+---------+ + + + | Date | Type | Department | Care Team | Description | +--------+---------+ + + + | 01/03/ | Office | [facility] | Eros Rothman MD | CKD (chronic kidney | | 2020 | Visit | NEPHROLOGY [place] | [address] [place] | disease) stage 5, | | | | [address] | [address] [place], [place] | GFR less than 15 | | | | [address] [place] [address] | [address] | ml/min (HCC) | | | | [place], [place] | | (Primary Dx); | | | | [address] | | Uremia, acute; | | | | [phone] | | Anemia of chronic | | | | | | kidney failure, | | | | | | stage 5 (HCC); Type | | | | | | 2 diabetes mellitus | | | | | | with diabetic | | | | | | nephropathy, with | | | | | | long-term current | | | | | | use of insulin | | | | | | (HCC); Essential | | | | | | hypertension; | | | | | | Metabolic acidosis; | | | | | | Hyperphosphatemia; | | | | | | At high risk for | | | | | | electrolyte | | | | | | imbalance | +--------+---------+ + + + Social History [...] + + + | Blood Pressure | 140/90 | 01/03/2020 11:42 AM | | | | | PST | | + + + + + | Pulse | 107 | 01/03/2020 11:42 AM | | | | | PST | | + + + + + | Temperature | - | - | | + + + + + | Respiratory Rate | - | - | | + + + + + | Oxygen Saturation | 99% | 01/03/2020 11:42 AM | | | | | PST | | + + + + + | Inhaled Oxygen | - | - | | | Concentration | | | | + + + + + | Weight | 88.7 kg (195 lb 8 | 01/03/2020 11:42 AM | | | | oz) | PST | | + + + + + | Height | 182.9 cm (6') | 01/03/2020 11:42 AM | | | | | PST | | + + + + + | Body Mass Index | 26.51 | 01/03/2020 11:42 AM | | | | | PST | | + + + + + documented in this encounter Patient Instructions Patient Instructions Eros Rothman MD - 01/03/2020 11:40 AM PSTDiscussions/Recommendations : I discussed today with Mr. [...] I sent him to the ED right away. I see an acute indication for starting dialysis for severe & worsening uremia. I kept him on Sodium Bicarbonate 650 mg to take one pill three times a day. I increased his Calcium Acetate 667 mg to take two pills three times a day DURING meals. He will report back to me his home BP readings when he gets a sphygmometer. At that time , I will decide whether any change to his vasoactive regimen is warranted. He will F/U with your office regularly. I will see him at the [facility] on dialysis rounds. documented in this encounter Progress Notes Eros Rothman MD - 01/03/2020 11:40 AM PST Patient Active Problem List Diagnosis Date [...] your patient Mr. Henley in the office on an urgent basis today. As you are familiar wit h his case, I will not state his past history in detail. Briefly, he is a 49 y.o. male irene ent with past history as delineated above. He is here to F/U on his severely low GFR & asso ciated complications. On 02/13/2019, his sCr & eGFR were [...] emptying or urgen cy. He has 2 times nightly nocturia. No history of passing kidney stones. He has no foamy u rine either. His baseline Creatinine is TBD. There is no family history of renal genetic dis eases such as PKD. He says that he feels 'tired' today. He denies any blurred vision but has had poor eye sig ht for ~1 year. No tinnitus, headache, fever, chills, or cough. He has occasional nausea & vomiting in the morning, but he manages meals 3 times a day. No anorexia at all. No abdomina l pain, diarrhea, melena, or hematochezia. No chest pain, palpitation, dizziness, loss of c onsciousness, orthopnea, paroxysmal nocturnal dyspnea, or leg edema. He has imbalance becaus e of inability to control his feet. This made him fall a few times; none recently, he states . No recent LOC. The following portions of [...] Outpatient Medications: amLODIPine (NORVASC) 10 MG tablet, 5 mg., Disp: , Rfl: 0 amLODIPine (NORVASC) 5 mg tablet, , Disp: , Rfl: atorvaSTATin (LIPITOR) 20 mg tablet, Take 20 mg by mouth nightly., Disp: , Rfl: calcium acetate (CALCIUM ACETATE) 667 mg capsule, Take 1 capsule by mouth 3 times hunter y (with meals)., Disp: 90 capsule, Rfl: 11 hydroCHLOROthiazide 25 mg tablet, , Disp: , Rfl: insulin - MIX insulin NPH-insulin regular 70/30 (HUMULIN 70/30) 100 units/mL injection , Inject into the skin 2 (two) times daily before meals., Disp: , Rfl: metoprolol succinate (TOPROL-XL) 50 mg 24 hr tablet, Take 50 mg by mouth daily., Disp: , Rfl: sodium bicarbonate 650 mg tablet, Take 1 tablet by mouth 3 times daily., Disp: 90 tabl et, Rfl: 11 *he tells me he also takes a diuretic - which he could not remember.* Physical Exam: BP 140/90 | Pulse 107 | Ht 1.829 m (6') | Wt 88.7 kg (195 lb 8 oz) | SpO2 99% | BMI 26 .51 kg/m General appearance: Pleasant, not in acute [...] normal. Lab Results Component Value Date HGB 7.5 (A) 01/02/2020 HGB 10.9 (A) 02/10/2019 NA 137 01/02/2020 K 4.2 01/02/2020 CL 99 01/02/2020 CO2 19 01/02/2020 BUN 111 (A) 01/02/2020 CREA 12.09 (A) 01/02/2020 CALCIUM 8.0 (A) 01/02/2020 ALBUMIN 3.2 (A) 01/02/2020 EGFR 4.0 (A) 01/02/2020 PTH 74.87 (A) 02/13/2019 LABPROT 3,749.7 (A) 11/10/2019 LABPROT 6.4 11/10/2019 No components found for: MALBRX No components found for: MICROALBUR Assessment: Mr. Henley is a 49 y.o. male patient with stage V CKD on a background of long standing diabete s & hypertension. The most likely pathology here is that of diabetic nephropathy +/- hyperte nsive nephrosclerosis/arteriolosclerosis. His uremia is worse; no evidence of uremic enceph alopathy at this time. RENAL FUNCTION: Severely low GFR BLOOD PRESSURE: Better controlled lately; but he has no sphygmometer at home BLOOD SUGAR: Reports it better controlled ELECTROLYTES: Abnormal: -Mild hyperkalemia (severely low GFR; being on Lisinopril; not watching the potassium in his diet) is better -Mild metabolic acidosis (low GFR) -Severe hyperphosphatemia ANEMIA: Moderate; associated with his severe [...] I sent him to the ED right away. I see an acute indication for starting ASSIGNMENT MANAGER for severe & worsening uremia. I kept him off of his Lisinopril. I again asked for the report of his early 11/2019 renal & bladder U/S SARA. He seems to be invested in his healthcare now & wants to be helped & get better. So we w ill go with the renal plan as detailed here. I kept him on Sodium Bicarbonate 650 mg to take one pill three times a day. I increased his Calcium Acetate 667 mg to take two pills three times a day DURING meals. (he did not have the IV Feraheme I ordered 2 weeks ago.) He will report back to me his home BP readings when he gets a sphygmometer. At that time , I will decide whether any change to his vasoactive regimen is warranted. He will F/U with your office regularly. I will see him at the [facility] on dialysis rounds. Thank you Dr Buckley for the opportunity to see this patient in F/U on an urgent basis todixon yousif. Please do not hesitate to call me at any time with questions or concerns. Truly yours, Eros Rothman MD FACP VIVIAN documented in this enco unter Plan [...] | | | | | | [place] [address] | | | | | | [phone] | | | | | | | | +--------+---------+ + + + documented as of this encounter Visit Diagnoses + + | Diagnosis | + + | CKD (chronic kidney disease) stage 5, GFR less than 15 ml/min ([facility]) - Primary Chronic | | kidney disease, Stage V | + + | Uremia, acute Acute kidney failure, unspecified | + + | Anemia of chronic kidney failure, stage 5 (HCC) | + + | Type 2 diabetes mellitus with diabetic nephropathy, with long-term current use of | | insulin (HCC) | + + | Essential hypertension Unspecified essential hypertension | + + | Metabolic acidosis Acidosis | + + | Hyperphosphatemia Disorders of phosphorus metabolism | + + | At high risk for electrolyte imbalance | + + documented in this encounter"
--- OUTSIDE RECORDS SUMMARY | ~2020-08-10 | XMS | Encounter Summary ---
Demographics + + + | Address | [address] | | | [place] [address] | + + + | Home Phone | | + + + | Preferred Language | Unknown | + + + | Marital Status | Single | + + + | Protestant Affiliation | 1041 | + + + | Race | White | + + + | Ethnic Group | Not or | + + + Author + + + | Author | [facility] | | | and [place] | + + + | Organization | [facility] | | | [...] Team Providers + +------+ + | Care Duster Tender Name | Role | Phone | + +------+ + | Yrn Buckley MD | PCP | | + +------+ + Reason for Visit Evaluate & Treat (Routine) +--------+--------+ + + + + | Status | Reason | Specialty | Diagnoses / | Referred By | Referred To | | | | | Procedures | Contact | Contact | +--------+--------+ + + + + | Closed | | | Diagnoses | Marcio, | Eros Rothman | | | | | Unspecified | Yrn Cabrera, | MD [address] | | | | | kidney | [address] [place] | | | | | failure | [address] | [address] | | | | | | [place], | [place], [place] | | | | | | [place] [address] | [address] | | | | | | Phone: | Phone: | | | | | | [phone] | [phone] | | | | | | Fax: | Fax: | | | | | | [phone] | [phone] | +--------+--------+ + + + + Encounter Details +--------+---------+ + + + | Date | Type | Department | Care Team | Description | +--------+---------+ + + + | 10/09/ | Office | [facility] | Eros Rothman MD | CKD (chronic kidney | | 2019 | Visit | NEPHROLOGY [place] | [address] [place] | disease) stage 5, | | | | [address] | [address] [place], [place] | GFR less than 15 | | | | [address] [address] | [address] | ml/min ([facility]); Type 2 | | | | [place], [place] | | diabetes mellitus | | | | [address] | | with diabetic | | | | [phone] | | nephropathy, with | | | | | | long-term current | | | | | | use of insulin | | | | | | ([facility]); Nephrotic | | | | | | range proteinuria; | | | | | | Anemia of chronic | | | | | | kidney failure, | | | | | | stage 5 ([facility]); | | | | | | Hyperkalemia; [...] + + + | Blood Pressure | 144/100 | 10/09/2019 4:06 PM | | | | | PST | | + + + + + | Pulse | 79 | 10/09/2019 4:06 PM | | | | | PST [...] + + + + | Weight | 97.4 kg (214 lb 11.2 | 10/09/2019 4:06 PM | | | | oz) | PST | | + + + + + | Height | 182.9 cm (6') | 10/09/2019 4:06 PM | | | | | PST | | + + + + + | Body Mass Index | 29.12 | 10/09/2019 4:06 PM | | | | | PST | | + + + + + documented in this encounter Patient Instructions Patient Instructions Eros Rothman MD - 10/09/2019 4:20 PM PSTDiscussions/Recommendations : I discussed today [...] kinds of NSAIDs for analgesia. Also: I decreased his Lisinopril from 40 mg to 20 mg daily. I sent him for a repeat RFP, CBC in 1 week. He will report back to me his home BP readings in 1-2 weeks. At that time, I will decide whether any change to his vasoactive regimen is warranted. He will F/U with your office regularly. He will have a RFP, CBC, Iron studies, Ferritin, intact PTH, SPIE, SFLC, uric acid, Urin e total kcfmody-tw-vsjsjdqwoc ratio before he comes back in 1 month. documented in this encounter Progress Notes Eros Rothman MD - 10/09/2019 4:20 PM PST There are no active problems to display for this patient. Dear Dr Buckley: Thank you for the opportunity to see Mr. Henley in consult today. As you are familiar with hi s case, I will not state his past history in detail. Briefly, he is a 49 y.o. male patient with past history as delineated above. He is here to be evaluated for a declining GFR. On 02/13/2019, his sCr & eGFR were 3.03 & 22. The patient has history of hypertension since his early 40's, Diabetes Mellitus since his e denise 's. His BG and BP control has been [...] and problem list. I also reviewed with him the records received from you r office; these were very informative. As in History of Present Illness & in Assessment. All the twelve systems were reviewed and were otherwise negative. Active comorbid conditions include: - hypertension; essential; with renal disease; with CKD stage 5 or ESRD - renal disease; proteinuria; CKD; Stage 5 - endocrine problem - diabetes; type 2; uncontrolled (Hgb A1C >= 6.5); with complications - anemia; chronic Past Medical History: Diagnosis Date CKD (chronic kidney disease) stage 4, GFR 15-29 ml/min (HCC) Convulsive disorder (HCC) DM (diabetes mellitus), type 1, uncontrolled (HCC) HTN (hypertension) Proteinuria Past Surgical History: Procedure Laterality Date APPENDECTOMY OTHER SURGICAL HISTORY Left 2018 CATARACT EXTRACTION Family History Problem Relation Age of Onset Diabetes Mother Other (see comment) Mother Renal Disease Prostate cancer Father Social History Socioeconomic History Marital status: Unknown Spouse name: Not on file Number of children: Not on file Years of education: Not on file Highest education level: Not on file Occupational History Not on file Social Needs Financial resource strain: Not on file Food insecurity: Worry: Not on file Inability: Not on file Transportation needs: Medical: Not on file Non-medical: Not on file Tobacco Use Smoking status: Former Smoker Smokeless tobacco: Never Used Substance and Sexual Activity Alcohol use: Not Currently Drug use: Not on file Comment: no Sexual activity: Not on file Lifestyle Physical activity: Days per week: Not on file Minutes per session: Not on file Stress: Not on file Relationships Social connections: Talks on phone: Not on file Gets together: Not on file Attends mormon service: Not on file Active member of [...] active allergies Intolerance No active intolerances/contraindications Current Outpatient Medications: atorvaSTATin (LIPITOR) 20 mg tablet, Take 20 mg by mouth nightly., Disp: , Rfl: insulin - MIX insulin NPH-insulin regular 70/30 (HUMULIN 70/30) 100 units/mL injection , Inject into the skin 2 (two) times daily before meals., Disp: , Rfl: lisinopril (PRINIVIL,ZESTRIL) 40 MG tablet, Take 40 mg by mouth daily., Disp: , Rfl: metoprolol succinate (TOPROL-XL) 50 mg 24 hr tablet, Take 50 mg by mouth daily., Disp: , Rfl: *he tells me he also takes a diuretic - which he could not remember.* Physical Exam: BP (!) 144/100 | Pulse 79 | Ht 1.829 m (6') | Wt 97.4 kg (214 lb 11.2 oz) | BMI 29.12 k g/m General appearance: Pleasant, not in acute distress. [...] tenderness bilaterally. Extremities: Warm to touch with 1+ right leg edema. There is no cyanosis. Skin: There are no rashes, petechiae, or ecchymosis. Scattered ulcers on his arms. Neurological: Awake, alert, and oriented to time, place, and person. Normal gross motor po wer. There is no asterixis. Psychiatric: The patient s behavior is normal. Judgment and thought content are normal. Lab Results Component Value Date HGB 8.7 (A) 10/03/2019 HGB 10.9 (A) 02/10/2019 NA 138 10/03/2019 K 5.9 (A) 10/03/2019 CL 110 10/03/2019 CO2 16 (A) 10/03/2019 BUN 63 (A) 10/03/2019 CREA 6.85 (A) 10/03/2019 CALCIUM 8.6 10/03/2019 ALBUMIN 3.51 02/15/2019 EGFR 9.0 (A) 10/03/2019 PTH 74.87 (A) 02/13/2019 LABPROT 2,846.1 (A) 07/28/2019 No results for input(s): BUN, CREA, EGFR, [...] all kinds of NSAIDs for analgesia. Also: No need to send him to the ED right now. He seems to be invested in his healthcare & wan ts to be helped & get better. So we will [facility] below. I see no need for acute GOVERNMENT MINISTER. I decreased his Lisinopril from 40 mg to 20 mg daily. I sent him for a repeat RFP, CBC in 1 week. He will report back to me his home BP readings in 1-2 weeks. At that time, I will decide whether any change to his vasoactive regimen is warranted. I sent him for a renal & bladder U/S soon (if he hadn't had one done yet). He will F/U with your office regularly. He will have a RFP, CBC, Iron studies, Ferritin, intact PTH, SPIE, SFLC, uric acid, Urin e total slwycnz-wd-dbxtyexexk ratio before he comes back in [address] Buckley for the opportunity to see this patient in consult on an urgent basis today. Please do not hesitate to call me at any time with questions or concerns. Truly yours, Eros Rothman MD [facility] documented in this [...] [place], | | | | | | [place] [address] | | | | | | [phone] | | | | | | | | +--------+---------+ + + + documented as of this encounter Visit Diagnoses + + | Diagnosis | + + | CKD (chronic kidney disease) stage 5, GFR less than 15 ml/min ([facility]) Chronic kidney | | disease, Stage V | + + | Type 2 diabetes mellitus with diabetic nephropathy, with long-term current use of | | insulin (HCC) | + + | Nephrotic range proteinuria Proteinuria | + + | Anemia of chronic kidney failure, stage 5 (HCC) | + + | Hyperkalemia Hyperpotassemia | + + | Metabolic acidosis Acidosis | + + | Hyperuricemia Other abnormal blood chemistry | + + | At high risk for electrolyte imbalance | + + documented in this encounter"
--- OUTSIDE RECORDS SUMMARY | ~2020-08-10 | XMS | Encounter Summary ---
Demographics + + + | Address | [address] | | | [place] [address] | + + + | Home Phone [...] Team Providers + +------+ + | Care Assistant Distribution Manager Name | Role | Phone | + +------+ + | Yrn Buckley MD | PCP | | + +------+ + Encounter Details +--------+ + + + + | Date | Type | Department | Care Team | Description | +--------+ + + + + | 02/18/ | Hospital | [facility] | Cirilo Tijerina, PER | No Show | | 2019 | Encounter | VASCULAR SURGERY | [address] | | | | | [address] | [place], [place] | | | | | [address] | [address] | | | | | [place], [place] | | | | | | [address] | | | | | | [phone] | | | +--------+ + + + [...] | | | | | | [place] [address] | | | | | | [phone] | | | | | | | [...]
--- OUTSIDE RECORDS SUMMARY | ~2020-08-10 | XMS | Encounter Summary ---
Demographics + + + | Address | [address] | | | [place] [address] | + + + | Home Phone [...] Team Providers + +------+ + | Care Beef Killer Name | Role | Phone | + [...] + + | 03/20/ | Telephone | [facility] | Rupal Black, | Procedure | | 2020 | | VASCULAR SURGERY | RN | | | | | [address] | | | | | | [place] | | | | | | [address] | | | | | | [phone] | | | +--------+ + + + [...] | | | | | | [place] [address] | | | | | | [phone] | | | | | | | [...]
--- OUTSIDE RECORDS SUMMARY | ~2020-08-10 | XMS | Encounter Summary ---
Demographics + + + | Address | [address] | | | [place] [address] | + + + | Home Phone [...] + | Author | [facility] | | | and [place] | + + + | Organization | [facility] | | | and [...] Team Providers + +------+ + | [employer] Architect Name | Role | Phone | + [...] | Specialty | Physical | Diagnoses | Jaskaran, | | | Review | Services | Therapy / | At high | Kamari Ruiz, | | | | Required | Rehabilitatio | risk for | MD [address] | | | | | n | falls | [address] | | | | | | Visual | [place], [place] | | | | | | impairment | [address] | | | | | | due to | Phone: | | | | | | diabetes | [phone] | | | | | | mellitus | Fax: | | | | | | ([facility]) | [phone] | | | | | | Neuropathy | | | | | | | due to | | | | | | | secondary | | | | | | | diabetes | | | | | | | ([facility]) ESRD | | | | | | | on | | | | | | | hemodialysis | | | | | | | ([facility]) | | | + + + + [...] | | | | (HCC) Type | [place], [place] | [place] | | | | | 2 diabetes | [address] | [address] | | | | | mellitus | Phone: | Phone: | | | | | with | [phone] | [phone] | | | | | diabetic | Fax: | Fax: | | | | | nephropathy, | [phone] | [phone] | | | | | with | [...] + + | 01/04/ | Hospital | [facility] | Maury Wilson | Acute renal failure, | | 2019 - | Encounter | [facility] | DO Kamari [address] | unspecified acute | | | | CARE FLOOR [address] | [address] | renal failure type | | 01/09/ | | [address] | [place], [place] | ([facility]) (Primary Dx); | | 2019 | | [place], [place] | [address] | ESRD (end stage | | | | [address] | [phone] | renal disease) | | | | [phone] | | ([facility]); ESRD (end | | | | | Gee, | stage renal disease) | | | | | MD Mike [address] | ([facility]); CKD (chronic | | | | | [address] | kidney disease) | | | | | [place] [address] | stage 5, GFR less | | | | | [phone] | than 15 ml/min | | | | | | ([facility]); Uremia, | | | | | Hayes Mason MD | acute; At high risk | | | | | [address] | for electrolyte | | | | | [place] [address] | imbalance; Essential | | | | | [phone] | hypertension; | | | | | | Hyperphosphatemia; | | | | | Elpidio Gunter MD | Metabolic acidosis; | | | | | [address] | 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[place], [place]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, with | | | | | | long-term current | | | | | Bri Bishop DO | use of insulin | | | | | [address] | ([facility]); Anemia in | | | | | [place] [address] | ESRD (end-stage | | | | | [phone] | renal disease) | | | | | | ([facility]); | | | | | Kamari Jessica, | Hypoalbuminemia; At | | | | | [address] | high risk for falls; | | | | | [place] [address] | Visual impairment | | | | | [phone] | due to diabetes | | | | | | mellitus (HCC); | | | | | | 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 [facility] Service: Hospitalist Physician Discharge Summary Patient ID: [...] Dr Rothman, nephrology, and was sent to [facility] emergency department due to uremia [...] zaragoza coordinated with outpatient dialysis centers in [facility] to estab [facility] hospital care time for the patient. Eventually patient [...] kidney disease) stage 4, GFR 15-29 ml/min ([facility]) Convulsive disorder (HCC) DM (diabetes mellitus), type 1, uncontrolled (HCC) HTN (hypertension) Proteinuria Past Surgical History: Procedure Laterality Date APPENDECTOMY AV FISTULA INSERTION Left 01/05/2020 Procedure: INSERTION AV FISTULA; Surgeon: Elpiido Gunter MD; Location: [facility] MAIN OR OTHER SURGICAL HISTORY Left 2018 [...] Gunter MD [address] [place] [id number] In 2 weeks For posthospitalization reevaluation [facility] [address] [facility] [address] [facility] [id number] Go on 01/11/2020 Dialysis begins at 1:30 pm. Please arrive 15 minutes early to fill out paperwork. Yrn Buckley MD [address] [facility] [address] In 1 week For posthospitalization reevaluation Discharge [...] cuts, scrapes, or blows. Date Last Reviewed: 11/08/201619997734-7996 [employer]. [address] [place] [address]. All righ ts reserved. This information is not intended as a substitute for professional medical care. Always follow your healthcare professional's instructions. AttachmentsThe following attachments cannot be sent through Care Everywhere.Senna tablets o r capsules (Botswanan)documented in this encounter Medications at Time of [...] sent from Dr. Perdomo) Recommendations: No acute CASINO BEVERAGE SERVER indication. Plan it for tomorrow No IVF [...] Ruiz MD - 01/09/2020 7:56 AM PST [facility] Service: Hospitalist Progress Note Pt: Cely Henley AGE/SEX: 49 y.o. male : 1970 ROOM: [facility]/8102- HPC: " Patient Summary: 49-year-old male with [...] AV FISTULA; Surgeon: Elpidio Gunter MD; Location: [facility] MAIN OR OTHER SURGICAL HISTORY Left [...] D O - 01/08/2020 4:25 PM PST [facility] Service: Hospitalist Progress Note Hospital Day: LOS: [...] sent from Dr. Perdomo) Recommendations: No acute CASINO BEVERAGE SERVER indication. Plan it for tomorrow No IVF [...] carnes DO - 01/07/2020 7:59 AM PST [facility] Service: Hospitalist Progress Note Hospital Day: LOS: [...] Inpatient. Code Status: Full Code Dictation and human resources officer or software, [employer], used which may contain error for similar s ounding words even after review. Personal communication requested for any clarification. Bri Bishop DO 01/07/2020 7:59 AM Hayes Correa MD - 01/06/2020 9:40 AM PST [facility] Service: Hospitalist Progress Note Hospital Day: LOS: [...] Inpatient. Code Status: Full Code Dictation and human resources officer or software, [employer], used which may contain error for similar s ounding words even after review. Personal communication requested for any clarification. Hayes Mason MD 01/06/2020 9:40 AM Hayes Correa MD - 0 01/05/2020 7:48 AM PST [facility] Service: Hospitalist Progress Note Hospital Day: LOS: [...] Inpatient. Code Status: Full Code Dictation and human resources officer or software, [employer], used which may contain error for similar [...] Elpidio Gunter MD - 01/05/2020 9:14 AM [facility] Service: Vascular Surgery Pre-Operative History & Physical [...] Dr Rothman, nephrology, and was sent to [facility] emergency department due to uremia [...] use included cigarettes. He has never used [employer] tobacco. He reports previous alcohol use. He [...] and sodium bicarbonate, as prescribed by his route clerk NovoLog sliding scale Hydralazine PRN Pain management [...] CV: No peripheral edema, rate regular SKIN: [place], warm, dry without rash/lesion MS: ROM not [...] the submitted pre-sandoval orders. Eros Rothman MD anta [facility], Eros Simon MD - 9:07 AM [...] documented in this enco unter Consult Notes Eors Rothman MD - 01/05/2020 7:12 AM PSTAssociated [...] file Gets together: Not on file Attends holiness service: Not on file Active member of [...] down No IVF need. With the planned CASINO BEVERAGE SERVER, his nausea & PO intake will get better No diuresis There is no acute UF indication Given his tendency for anasarca: Encourage adequate intake & close dietitian F/U. Encourage ambulation safely. Encourage the adequate use of an incentive spirometer. RENAL FUNCTION: Severely low GFR There is an acute CASINO BEVERAGE SERVER indication No IVF Strict I/O & daily [...] frequently ELECTROLYTES: Abnormal. There is an acute CASINO BEVERAGE SERVER indication Sodium: ok Potassium: ok Calcium: corca [...] might be differen t from the original. [facility] Department of Emergency Medicine 9:15 PM No [...] file Gets together: Not on file Attends holiness service: Not on file Active member of [...] sore throat CV/Resp: Negative for chest pain, rhotgrtrg-km-mnbngc, cough GI: Negative for abdominal pain, nausea, [...] infusion ( Intravenous Continued by Anesthesia 01/05/20 2796) phenol (CHLORASEPTIC) spray 1-2 spray (has no [...] Old medical records. Nursing notes. No prior [facility] ED visits available for review. Laboratory Evaluation Results Procedure Component Value Ref Range Date/Time Comprehensive Metabolic Panel [[id number]] (Abnormal) Collected: 01/04/202058 Order Status: Completed Specimen: [...] Estimated GFR 5 >60 mL/min/1.73m2 CK Total [[id number]] Collected: 01/04/202058 Order Status: Completed Updated: 01/04/202220 CK TOTAL 126 55 - 400 U/L CBC with Differential [[id number]] (Abnormal) Collected: 01/04/202058 Order Status: Completed Specimen: [...] Interpretation==== Time: 2112 Rate: 82 Rhythm: Sinus [place]: normal Intervals: normal ST: normal Other: none No old for comparison Overall: Normal EKG Interpreted by Maury Wilson D.O. Rhythm strip analysis: NSR Imaging Results None 1. Acute renal failure, unspecified acute renal failure type (HCC) 2. ESRD (end stage renal disease) ([facility]) 3. ESRD (end stage renal disease) ([facility]) 4. CKD (chronic kidney disease) stage 5, GFR less than 15 ml/min ([facility]) 5. Uremia, acute 6. At high risk [...] 2 weeks. Specialty: Vascular Surgery Contact information: [address] [place] [address] [place] [address] Discharge Medications: Current Discharge Medication List [...] Current Outpt/Agency/Support Groups: hemodialysis Community Agency Name: [facility] Equipment Home Equipment at Discharge: 4WW Equipment Used at Home: none Pharmacy Pharmacy/Medication needs: ([facility]) Notes: Dialysis coordinator Danette notified CM this morning that pt has been set up with a chair time at [facility] T,, Sat at 1:30 pm. Pt has [...] have AFOs on when going to the [employer] at night. Precautions Precaution Comment: bilat AFOs Precautions/Limitations: falls Impairments Found (describe specific impairments): functional endurance/activity tolerance, gait, locomotion, and balance, sensory integration/regulation, muscle performance, neuromot or Bed Mobility Additional Documentation: supine to/from sit Assistive Device: none Supine to Sit, Level of [place]: independent Sit to Supine, Level of [place]: independent Transfers Transfers Comments: Transfer training using 4WW Additional Documentation: sit to/from stand Sit-Stand, Level of [place]: modified independent Stand-Sit, Level of [place]: modified independent Uaq-Gqwge-Tvt, Assistive Device: 4 wheeled walker (4WW), none Safety Issues: loses balance backward Impairments: strength decreased, impaired balance, sensation decreased Gait Gait Comments: Gait training with 4WW Level of [place]: stand by assist Assistive Device: 4 wheeled walker (4WW) Distance (feet): 40x2 Additional Documentation: safety, impairments, stairs (group) Impairments: sensation decreased, strength decreased, impaired balance Stairs Number of Stairs: 1 Handrail Location: left side (ascending)(raised bed rail) Level of [place]: minimal assist (75% patient effort) Assistive Device: [...] All Transfers Goal Most Recent Value LTG [place] Level modified independent at 01/09/2020 1523 LTG Assistive Device 4 wheeled walker (4WW) at 01/09/2020 1523 Gait Goal Most Recent Value LTG [place] Level modified independent at 01/09/2020 1523 LTG Assistive Device 4 wheeled walker (4WW) at 01/09/2020 1523 LTG Distance (feet) 50 at 01/09/2020 1523 Stair Goal Most Recent Value LTG [place] Level contact guard assist at 01/09/2020 1523 [...] Steps Taken Toward Discharge: Per Hospitalist report, [facility] will be ope [place] up [...] Gunter MD - 01/05/2020 4:16 PM PST [facility] Service: Vascular Surgery Operative Note Pre-operative Diagnosis: ESRD and need for alf dialysis access Post-operative Diagnosis: same Procedure(s): Left brachiocephalic fistula creation Surgeon: Elpidio Gunter MD Blade Aligner(s): KENAN Bunch (PA was required to help [...] Gunter MD 01/05/2020 4:16 PM [facility] - 01/05/2020 1:01 PM PSTCare Management [...] Elpidio Gunter MD - 01/05/2020 9:44 AM [facility] Service: Vascular Surgery Brief Op Note Pre-operative Diagnosis: Acute on chronic renal failure Post-operative Diagnosis: same Procedure(s): Ultrasound guided access of right internal jugular vein Placement of 23 cm tunneled dialysis catheter under fluoroscopic guidance Surgeon: Elpidio Gunter MD Blade Aligner(s): None Anesthesia: Moderate sedation and Local anesthesia [...] | | | | | | [place] [address] | | | | | | [phone] | | | | | | | [...] | Referral | e | renal disease) ([facility]) | | | | | | 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 | | | [place] | | | y | | | [...] | | | St. | | | [place] | | | y | | | Hospit | | | al | | | Patien | | | t is | | | curren | | | tly | | | establ | | | ished | | | with | | | St | | | [place] | | | y | | | [...] St | | | | | | [place] | | | y | | | [...] | | | St. | | | [place] | | | y | | | [...] | | | St. | | | [place] | | | y H. | | [...] | | | St. | | | [place] | | | y H. 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 | | | POC | performed at [facility];[address] | | LABORATORY | | | | [address];[place], [place] | | | | | | [address] | | | | + + + + + + + + | Specimen | + + | | + + + + + + + | Performing | Address | City/State/Zipcode | Phone Number | | Organization | | | | + + + + + | [facility] | [address] | [place] [address] | [phone] | + + + + + HEMODIALYSIS [...] | | intake/output data recorded. Assessment: Mr. Henley is a 49 y.o. | | | [...] | | | POC | performed at [facility];[address] | | LABORATORY | | | | [address];[place] | | | | | | [address] | | | | + + + + + + + + | Specimen | + + | | + + + + + + + | Performing | Address | City/State/Zipcode | Phone Number | | Organization | | | | + + + + + | [facility] | [address] | [place] [address] | [phone] | + + + + + Hemoglobin A1C (01/10/2020 5:22 AM PST) + + + + + + | Component | Value | Ref Range | Performed | Pathologist | | | | | At | Signature | + + + + + + | Hemoglobin | 6.3 (H)Comment: HbA1c | 4.0 - 6.0 % | [facility] | | | A1c | method is [...] | 134Comment: Estimated | <154 mg/dL | [facility] | | | Average | Average Glucose | | LABORATORY | | | Glucose | calculated from | | | | | | hemoglobin A1c by use of | | | | | | the ADArecommended | | | | | | formula.Testing | | | | | | performed at [facility], [address] | | | | | | [facility], | | | | | | [place] [address] | | | | + + + + + + + + | Specimen | + + | Blood | + + + + + + + | Performing | Address | City/State/Zipcode | Phone Number | | Organization | | | | + + + + + | [facility] | [address] | [place] [address] | [phone] | + + + + + Magnesium (01/10/2020 5:22 AM PST) + + + + + + | Component | Value | Ref Range | Performed | Pathologist | | | | | At | Signature | + + + + + + | Magnesium | 1.5 (L)Comment: Testing | 1.7 - 2.4 mg/dL | [facility] | | | | performed at [facility], [address] | | LABORATORY | | | | [address], | | | | | | [place] [address] | | | | + + + + + + + + | Specimen | + + | Blood | + + + + + + + | Performing | Address | City/State/Zipcode | Phone Number | | Organization | | | | + + + + + | [facility] | [address] | [place] [address] | [phone] | + + + + + CBC [...] | | | Absolute | performed at [facility], [address] | K/uL | LABORATORY | | | | [address], | | | | | | [place] [address] | | | | + + + + + + + + | Specimen | + + | Blood | + + + + + + + | Performing | Address | City/State/Zipcode | Phone Number | | Organization | | | | + + + + + | [facility] | [address] | [place] [address] | [phone] | + + + + + Basic [...] 9 (L)Comment: GFR <60: | >60 | [facility] | | | GFR | CHRONIC KIDNEY [...] | | | | | | MDRD IDUT traceable | | | | | | equation.Testing | | | | | | performed at [facility], [address] | | | | | | [facility], | | | | | | [place] [address] | | | | + + + + + + + + | Specimen | + + | Blood | + + + + + + + | Performing | Address | City/State/Zipcode | Phone Number | | Organization | | | | + + + + + | [facility] | [address] | [place] [address] | [phone] | + + + + + POC Glucose (01/09/2020 8:40 PM PST) + + + + + + | Component | Value | Ref Range | Performed | Pathologist | | | | | At | Signature | + + + + + + | Glucose, | 176 (H)Comment: Testing | 65 - 99 mg/dL | [facility] | | | POC | performed at [facility];[address] | | LABORATORY | | | | [address];[place], [place] | | | | | | [address] | | | | + + + + + + + + | Specimen | + + | | + + + + + + + | Performing | Address | City/State/Zipcode | Phone Number | | Organization | | | | + + + + + | [facility] | [address] | [place] [address] | [phone] | + + + + + POC Glucose (01/09/2020 4:51 PM PST) + + + + + + | Component | Value | Ref Range | Performed | Pathologist | | | | | At | Signature | + + + + + + | Glucose, | 89Comment: Testing | 65 - 99 mg/dL | [facility] | | | POC | performed at [facility];[address] | | LABORATORY | | | | [address];[place], [place] | | | | | | [address] | | | | + + + + + + + + | Specimen | + + | | + + + + + + + | Performing | Address | City/State/Zipcode | Phone Number | | Organization | | | | + + + + + | [facility] | [address] | [place] [address] | [phone] | + + + + + POC Glucose (01/09/2020 4:27 PM PST) + + + + + + | Component | Value | Ref Range | Performed | Pathologist | | | | | At | Signature | + + + + + + | Glucose, | 67Comment: Testing | 65 - 99 mg/dL | [facility] | | | POC | performed at [facility];[address] | | LABORATORY | | | | [address];[place] | | | | | | [address] | | | | + + + + + + + + | Specimen | + + | | + + + + + + + | Performing | Address | City/State/Zipcode | Phone Number | | Organization | | | | + + + + + | [facility] | [address] | [place] [address] | [phone] | + + + + + POC Glucose (01/09/2020 11:49 AM PST) + + + + + + | Component | Value | Ref Range | Performed | Pathologist | | | | | At | Signature | + + + + + + | Glucose, | 85Comment: Testing | 65 - 99 mg/dL | [facility] | | | POC | performed at [facility];[address] | | LABORATORY | | | | [address];[place] | | | | | | [address] | | | | + + + + + + + + | Specimen | + + | | + + + + + + + | Performing | Address | City/State/Zipcode | Phone Number | | Organization | | | | + + + + + | [facility] | [address] | [place] [address] | [phone] | + + + + + POC [...] | | | POC | performed at [facility];[address] | | LABORATORY | | | | [address];[place] | | | | | | [address] | | | | + + + + + + + + | Specimen | + + | | + + + + + + + | Performing | Address | City/State/Zipcode | Phone Number | | Organization | | | | + + + + + | [facility] | [address] | [place] [address] | [phone] | + + + + + POC [...] | | | POC | performed at [facility];[address] | | LABORATORY | | | | [address];[place], [place] | | | | | | [address] | | | | + + + + + + + + | Specimen | + + | | + + + + + + + | Performing | Address | City/State/Zipcode | Phone Number | | Organization | | | | + + + + + | [facility] | [address] | [place] [address] | [phone] | + + + + + POC Glucose (01/08/2020 8:24 PM PST) + + + + + + | Component | Value | Ref Range | Performed | Pathologist | | | | | At | Signature | + + + + + + | Glucose, | 81Comment: Testing | 65 - 99 mg/dL | [facility] | | | POC | performed at [facility];[address] | | LABORATORY | | | | [address];[place] | | | | | | [address] | | | | + + + + + + + + | Specimen | + + | | + + + + + + + | Performing | Address | City/State/Zipcode | Phone Number | | Organization | | | | + + + + + | [facility] | [address] | [place] [address] | [phone] | + + + + + POC Glucose (01/08/2020 4:06 PM PST) + + + + + + | Component | Value | Ref Range | Performed | Pathologist | | | | | At | Signature | + + + + + + | Glucose, | 85Comment: Testing | 65 - 99 mg/dL | [facility] | | | POC | performed at [facility];[address] | | LABORATORY | | | | [address];[place], [place] | | | | | | [address] | | | | + + + + + + + + | Specimen | + + | | + + + + + + + | Performing | Address | City/State/Zipcode | Phone Number | | Organization | | | | + + + + + | [facility] | [address] | [place] [address] | [phone] | + + + + + XR [...] Testing | 65 - 99 mg/dL | [facility] | | | POC | performed at [facility];[address] | | LABORATORY | | | | [address];[place] | | | | | | [address] | | | | + + + + + + + + | Specimen | + + | | + + + + + + + | Performing | Address | City/State/Zipcode | Phone Number | | Organization | | | | + + + + + | [facility] | [address] | [place] [address] | [phone] | + + + + + HEMODIALYSIS [...] | | | POC | performed at [facility];[address] | | LABORATORY | | | | [address];[place] | | | | | | [address] | | | | + + + + + + + + | Specimen | + + | | + + + + + + + | Performing | Address | City/State/Zipcode | Phone Number | | Organization | | | | + + + + + | [facility] | [address] | [place] [address] | [phone] | + + + + + Comprehensive [...] 7 (L)Comment: GFR <60: | >60 | [facility] | | | GFR | CHRONIC KIDNEY [...] | | | | | performed at [facility] | | | | | | [facility];[place], [place] | | | | | | [address] | | | | + + + + + + + + | Specimen | + + | Blood | + + + + + + + | Performing | Address | City/State/Zipcode | Phone Number | | Organization | | | | + + + + + | [facility] | [address] | [place] [address] | [phone] | + + + + + CBC [...] LABORATORY | | | | performed at [facility];[address] | | | | | | [address];[place] | | | | | | [address] | | | | + + + + + + + + | Specimen | + + | Blood | + + + + + + + | Performing | Address | City/State/Zipcode | Phone Number | | Organization | | | | + + + + + | [facility] | [address] | [place] [address] | [phone] | + + + + + POC Glucose (01/07/2020 8:57 PM PST) + + + + + + | Component | Value | Ref Range | Performed | Pathologist | | | | | At | Signature | + + + + + + | Glucose, | 102 (H)Comment: Testing | 65 - 99 mg/dL | [facility] | | | POC | performed at [facility] [facility];[address] | | LABORATORY | | | | [address];[place] | | | | | | [address] | | | | + + + + + + + + | Specimen | + + | | + + + + + + + | Performing | Address | City/State/Zipcode | Phone Number | | Organization | | | | + + + + + | [facility] | [address] | [place] [address] | [phone] | + + + + + POC Glucose (01/07/2020 5:44 PM PST) + + + + + + | Component | Value | Ref Range | Performed | Pathologist | | | | | At | Signature | + + + + + + | Glucose, | 132 (H)Comment: Testing | 65 - 99 mg/dL | [facility] | | | POC | performed at [facility];[address] | | LABORATORY | | | | [address];[place] | | | | | | [address] | | | | + + + + + + + + | Specimen | + + | | + + + + + + + | Performing | Address | City/State/Zipcode | Phone Number | | Organization | | | | + + + + + | [facility] | [address] | [place] [address] | [phone] | + + + + + POC Glucose (01/07/2020 4:53 PM PST) + + + + + + | Component | Value | Ref Range | Performed | Pathologist | | | | | At | Signature | + + + + + + | Glucose, | 67Comment: Testing | 65 - 99 mg/dL | [facility] | | | POC | performed at [facility];[address] | | LABORATORY | | | | [address];[place], [place] | | | | | | [address] | | | | + + + + + + + + | Specimen | + + | | + + + + + + + | Performing | Address | City/State/Zipcode | Phone Number | | Organization | | | | + + + + + | [facility] | [address] | [place] [address] | [phone] | + + + + + POC [...] | | | POC | performed at [facility];[address] | | LABORATORY | | | | [address];[place] | | | | | | [address] | | | | + + + + + + + + | Specimen | + + | | + + + + + + + | Performing | Address | City/State/Zipcode | Phone Number | | Organization | | | | + + + + + | [facility] | [address] | [place] [address] | [phone] | + + + + + POC Glucose (01/07/2020 11:38 AM PST) + + + + + + | Component | Value | Ref Range | Performed | Pathologist | | | | | At | Signature | + + + + + + | Glucose, | 116 (H)Comment: Testing | 65 - 99 mg/dL | [facility] | | | POC | performed at [facility];[address] | | LABORATORY | | | | [address];[place], [place] | | | | | | [address] | | | | + + + + + + + + | Specimen | + + | | + + + + + + + | Performing | Address | City/State/Zipcode | Phone Number | | Organization | | | | + + + + + | [facility] | [address] | [place] [address] | [phone] | + + + + + POC [...] | | | POC | performed at [facility];[address] | | LABORATORY | | | | [address];[place], [place] | | | | | | [address] | | | | + + + + + + + + | Specimen | + + | | + + + + + + + | Performing | Address | City/State/Zipcode | Phone Number | | Organization | | | | + + + + + | [facility] | [address] | [place] [address] | [phone] | + + + + + Renal [...] (H) | 2.3 - 4.8 mg/dL | [facility] | | | | | | LABORATORY | | + + + + + + | Estimated | 9 (L)Comment: GFR <60: | >60 | [facility] | | | GFR | CHRONIC KIDNEY [...] | | | | | performed at [facility] | | | | | | [facility];[place], [place] | | | | | | [address] | | | | + + + + + + + + | Specimen | + + | | + + + + + + + | Performing | Address | City/State/Zipcode | Phone Number | | Organization | | | | + + + + + | [facility] | [address] | [place] [address] | [phone] | + + + + + CBC [...] | | | Absolute | performed at [facility];[address] | K/uL | LABORATORY | | | | [address];[place] | | | | | | [address] | | | | + + + + + + + + | Specimen | + + | Blood | + + + + + + + | Performing | Address | City/State/Zipcode | Phone Number | | Organization | | | | + + + + + | [facility] | [address] | [place] [address] | [phone] | + + + + + Clostridium [...] C. | Toxin not detected. | | [facility] | | | difficile, | Toxin may [...] at | | | | | | [facility];[address];[place] [address] | | | | + + + + + + + + | Specimen | + + | Stool - Stool | | specimen (specimen) | + + + + + + + | Performing | Address | City/State/Zipcode | Phone Number | | Organization | | | | + + + + + | [facility] | [address] | [place] [address] | [phone] | + + + + + POC [...] | | | POC | performed at [facility];[address] | | LABORATORY | | | | [address];[place] | | | | | | [address] | | | | + + + + + + + + | Specimen | + + | | + + + + + + + | Performing | Address | City/State/Zipcode | Phone Number | | Organization | | | | + + + + + | [facility] | [address] | [place] [address] | [phone] | + + + + + POC [...] | | | POC | performed at [facility];[address] | | LABORATORY | | | | [address];[place], [place] | | | | | | [address] | | | | + + + + + + + + | Specimen | + + | | + + + + + + + | Performing | Address | City/State/Zipcode | Phone Number | | Organization | | | | + + + + + | [facility] | [address] | [place] [address] | [phone] | + + + + + POC Glucose (01/06/2020 11:03 AM PST) + + + + + + | Component | Value | Ref Range | Performed | Pathologist | | | | | At | Signature | + + + + + + | Glucose, | 86Comment: Testing | 65 - 99 mg/dL | [facility] | | | POC | performed at [facility];[address] | | LABORATORY | | | | [address];[place] | | | | | | [address] | | | | + + + + + + + + | Specimen | + + | | + + + + + + + | Performing | Address | City/State/Zipcode | Phone Number | | Organization | | | | + + + + + | [facility] | [address] | [place] [address] | [phone] | + + + + + Renal [...] 6 (L)Comment: GFR <60: | >60 | [facility] | | | GFR | CHRONIC KIDNEY [...] | | | | | | MDRD IDUT traceable | | | | | | equation.Testing | | | | | | performed at [facility];[address] | | | | | | [facility];[place], [place] | | | | | | [address] | | | | + + + + + + + + | Specimen | + + | | + + + + + + + | Performing | Address | City/State/Zipcode | Phone Number | | Organization | | | | + + + + + | [facility] | [address] | [place] [address] | [phone] | + + + + + Magnesium (01/06/2020 5:15 AM PST) + + + + + + | Component | Value | Ref Range | Performed | Pathologist | | | | | At | Signature | + + + + + + | Magnesium | 1.5 (L)Comment: Testing | 1.7 - 2.4 mg/dL | [facility] | | | | performed at [facility];[address] | | LABORATORY | | | | [address];[place] | | | | | | [address] | | | | + + + + + + + + | Specimen | + + | Blood | + + + + + + + | Performing | Address | City/State/Zipcode | Phone Number | | Organization | | | | + + + + + | [facility] | [address] | [place] [address] | [phone] | + + + + + CBC [...] | | | Absolute | performed at [facility];[address] | K/uL | LABORATORY | | | | [address];[place], [place] | | | | | | [address] | | | | + + + + + + + + | Specimen | + + | Blood | + + + + + + + | Performing | Address | City/State/Zipcode | Phone Number | | Organization | | | | + + + + + | [facility] | [address] | [place] [address] | [phone] | + + + + + Hepatitis [...] [place] | | | | | | [address] | | | | + + + + + + + + | Specimen | + + | Blood | + + + + + + + | Performing | Address | City/State/Zipcode | Phone Number | | Organization | | | | + + + + + | [facility] | [address] | [place] [address] | [phone] | + + + + + Hepatitis [...] | | LABORATORY | | | | [facility], [address] | | | | | | [place] | | | | | | [address] | | | | + + + + + + + + | Specimen | + + | Blood | + + + + + + + | Performing | Address | City/State/Zipcode | Phone Number | | Organization | | | | + + + + + | [facility] | [address] | [place] [address] | [phone] | + + + + + Hepatitis [...] | | | | | performed at [facility], [address] | | | | | | [facility], | | | | | | [place] [address] | | | | + + + + + + + + | Specimen | + + | Blood | + + + + + + + | Performing | Address | City/State/Zipcode | Phone Number | | Organization | | | | + + + + + | [facility] | [address] | [place] [address] | [phone] | + + + + + POC Glucose (01/05/2020 9:33 PM PST) + + + + + + | Component | Value | Ref Range | Performed | Pathologist | | | | | At | Signature | + + + + + + | Glucose, | 105 (H)Comment: Testing | 65 - 99 mg/dL | [facility] | | | POC | performed at [facility];[address] | | LABORATORY | | | | [address];[place] | | | | | | [address] | | | | + + + + + + + + | Specimen | + + | | + + + + + + + | Performing | Address | City/State/Zipcode | Phone Number | | Organization | | | | + + + + + | [facility] | [address] | [place] [address] | [phone] | + + + + + POC [...] | | | POC | performed at [facility];[address] | | LABORATORY | | | | [address];[place], [place] | | | | | | [address] | | | | + + + + + + + + | Specimen | + + | | + + + + + + + | Performing | Address | City/State/Zipcode | Phone Number | | Organization | | | | + + + + + | [facility] | [address] | [place] [address] | [phone] | + + + + + POC ISTAT, CG8, Venous (01/05/2020 3:37 PM PST) + + + + + + | Component | Value | Ref Range | Performed | Pathologist | | | | | At | Signature | + + + + + + | pH, Venous, | 7.437 (H) | 7.310 - 7.410 | [facility] | | | POC | | | [...] | | | POC | performed at [facility];888 | g/dL | LABORATORY | | | | [address];[place] | | | | | | [address] | | | | + + + + + + + + | Specimen | + + | | + + + + + + + | Performing | Address | City/State/Zipcode | Phone Number | | Organization | | | | + + + + + | [facility] | [address] | [place] [address] | [phone] | + + + + + POC Glucose (01/05/2020 2:56 PM PST) + + + + + + | Component | Value | Ref Range | Performed | Pathologist | | | | | At | Signature | + + + + + + | Glucose, | 112 (H)Comment: Testing | 65 - 99 mg/dL | [facility] | | | POC | performed at [facility];[address] | | LABORATORY | | | | [address];[place], [place] | | | | | | [address] | | | | + + + + + + + + | Specimen | + + | | + + + + + + + | Performing | Address | City/State/Zipcode | Phone Number | | Organization | | | | + + + + + | [facility] | [address] | [place] [address] | [phone] | + + + + + Basic [...] | | | | | performed at [facility];[address] | | | | | | [address];[place], [place] | | | | | | [address] | | | | + + + + + + + + | Specimen | + + | Blood | + + + + + + + | Performing | Address | City/State/Zipcode | Phone Number | | Organization | | | | + + + + + | [facility] | [address] | [place] [address] | [phone] | + + + + + HEMODIALYSIS [...] Testing | 65 - 99 mg/dL | [facility] | | | POC | performed at [facility];[address] | | LABORATORY | | | | [address];[place], [place] | | | | | | [address] | | | | + + + + + + + + | Specimen | + + | | + + + + + + + | Performing | Address | City/State/Zipcode | Phone Number | | Organization | | | | + + + + + | [facility] | [address] | [place] [address] | [phone] | + + + + + IR [...] | | | patient was referred to de for placement of a PermCath for dialysis [...] and | | | brought to the stucco laborer. The patient was placed supine on the stucco laborer | | | table. The patient was [...] | [facility] | | | COMMENT | [facility];[address] | | LABORATORY | | | | [address];[place] [address] | | | | + + + + + + + + | Specimen | + + | | + + + + + + + | Performing | Address | City/State/Zipcode | Phone Number | | Organization | | | | + + + + + | [facility] | [address] | [place] [address] | [phone] | + + + + + Type [...] + + + | BB BAND | [id number] | | [facility] | | | | | | LABORATORY | | + + + + + + | UNIT # | [id number] | | [facility] | | | | [...] | | | RESULT | performed at [facility] | | LABORATORY | | | | [address];[place], [place] | | | | | | [address] | | | | + + + + + + + + | Specimen | + + | Blood | + + + + + + + | Performing | Address | City/State/Zipcode | Phone Number | | Organization | | | | + + + + + | [facility] | [address] | [place] [address] | [phone] | + + + + + Ferritin (01/05/2020 8:25 AM PST) + + + + + + | Component | Value | Ref Range | Performed | Pathologist | | | | | At | Signature | + + + + + + | Ferritin | 237Comment: Testing | 11 - 450 ng/mL | [facility] | | | | performed at [facility], [address] | | LABORATORY | | | | [address], | | | | | | [place] [address] | | | | + + + + + + + + | Specimen | + + | Blood | + + + + + + + | Performing | Address | City/State/Zipcode | Phone Number | | Organization | | | | + + + + + | [facility] | [address] | [place] [address] | [phone] | + + + + + Iron [...] | | | | | [place] [address] | | | | + + + + + + + + | Specimen | + + | Blood | + + + + + + + | Performing | Address | City/State/Zipcode | Phone Number | | Organization | | | | + + + + + | [facility] | [address] | [place] [address] | [phone] | + + + + + POC [...] | | | POC | performed at [facility];[address] | | LABORATORY | | | | [address];[place] | | | | | | [address] | | | | + + + + + + + + | Specimen | + + | | + + + + + + + | Performing | Address | City/State/Zipcode | Phone Number | | Organization | | | | + + + + + | [facility] | [address] | [place] [address] | [phone] | + + + + + POC [...] | | | POC | performed at [facility];[address] | | LABORATORY | | | | [address];[place], [place] | | | | | | [address] | | | | + + + + + + + + | Specimen | + + | | + + + + + + + | Performing | Address | City/State/Zipcode | Phone Number | | Organization | | | | + + + + + | [facility] | [address] | [place] [address] | [phone] | + + + + + [place] [...] Testing | 1.7 - 2.4 mg/dL | [facility] | | | | performed at [facility], [address] | | LABORATORY | | | | [address], | | | | | | [place] [address] | | | | + + + + + + + + | Specimen | + + | Blood | + + + + + + + | Performing | Address | City/State/Zipcode | Phone Number | | Organization | | | | + + + + + | [facility] | [address] | [place] [address] | [phone] | + + + + + Comprehensive [...] | | | | | performed at [facility];[address] | | | | | | [address] [facility];[place], [place] | | | | | | [address] | | | | + + + + + + + + | Specimen | + + | Blood | + + + + + + + | Performing | Address | City/State/Zipcode | Phone Number | | Organization | | | | + + + + + | [facility] | [address] | [place] [address] | [phone] | + + + + + CBC [...] g/dL | LABORATORY | | | | L/RN/8RP,[id number],LP | | | | | |EMORY L/RN/8RP,[id number],[id number],LP | | | | | | | | | | + + + + + + | Hematocrit | 20.5 (LL)Comment: RESULT | 39.0 - 50.0 % | [facility] | | | | READ BACK BY:CARLOS MANUEL | | LABORATORY | | | | L/RN/8RP,[id number],[id number],LP | | | | | |CARLOS MANUEL L/RN/8RP,[id number],[id number],LP | | | | | | | [...] | | | Absolute | performed at [facility], [address] | K/uL | LABORATORY | | | | [address], | | | | | | [place] [address] | | | | + + + + + + + + | Specimen | + + | Blood | + + + + + + + | Performing | Address | City/State/Zipcode | Phone Number | | Organization | | | | + + + + + | [facility] | [address] | [place] [address] | [phone] | + + + + + POC Glucose (01/05/2020 3:43 AM PST) + + + + + + | Component | Value | Ref Range | Performed | Pathologist | | | | | At | Signature | + + + + + + | Glucose, | 157 (H)Comment: Testing | 65 - 99 mg/dL | [facility] | | | POC | performed at [facility];[address] | | LABORATORY | | | | [address];[place], [place] | | | | | | [address] | | | | + + + + + + + + | Specimen | + + | | + + + + + + + | Performing | Address | City/State/Zipcode | Phone Number | | Organization | | | | + + + + + | [facility] | [address] | [place] [address] | [phone] | + + + + + Creatinine, [...] | | | urine | performed at [facility], [address] | | | | | [address], | | | | | | [place] [address] | | | | + + + + + + + + | Specimen | + + | | + + + + + + + | Performing | Address | City/State/Zipcode | Phone Number | | Organization | | | | + + + + + | [facility] | [address] | [place] [address] | [phone] | + + + + + Sodium, Urine, Random (01/05/2020 1:21 AM PST) + + + + + + | Component | Value | Ref Range | Performed | Pathologist | | | | | At | Signature | + + + + + + | Sodium, | 54Comment: NO NORMAL | mmol/L | [facility] | | | Random | RANGE ESTABLISHEDTesting | | LABORATORY | | | urine | performed at [facility], [address] | | | [address] | [address], | | | | | | [place] [address] | | | | + + + + + + + + | Specimen | + + | Urine - Urine | | specimen (specimen) | + + + + + + + | Performing | Address | City/State/Zipcode | Phone Number | | Organization | | | | + + + + + | [facility] | [address] | [place] [address] | [phone] | + + + + + Protein/Creatinine Ratio, Urine (01/05/2020 1:21 AM PST) + + + + + + | Component | Value | Ref Range | Performed | Pathologist | | | | | At | Signature | + + + + + + | PRO/CREA | 3.736Comment: Testing | | [facility] | | | RATIO,URINE | performed at [facility], [address] | | LABORATORY | | | | [address], | | | | | | [place] [address] | | | | + + + + + + + + | Specimen | + + | Urine - Urine | | specimen (specimen) | + + + + + + + | Performing | Address | City/State/Zipcode | Phone Number | | Organization | | | | + + + + + | [facility] | [address] | [place] [address] | [phone] | + + + + + Protein, Urine, Random (01/05/2020 1:21 AM PST) + + + + + + | Component | Value | Ref Range | Performed | Pathologist | | | | | At | Signature | + + + + + + | Protein, | 294Comment: NO NORMAL | mg/dL | [facility] | | | Urine | RANGE ESTABLISHEDTesting | | LABORATORY | | | | performed at [facility], [address] | | [address] | | [address], | | | | | | [place] [address] | | | | + + + + + + + + | Specimen | + + | Urine - Urine | | specimen (specimen) | + + + + + + + | Performing | Address | City/State/Zipcode | Phone Number | | Organization | | | | + + + + + | [facility] | [address] | [place] [address] | [phone] | + + + + + Potassium, Urine, Random (01/05/2020 1:21 AM PST) + + + + + + | Component | Value | Ref Range | Performed | Pathologist | | | | | At | Signature | + + + + + + | Potassium, | 21Comment: NO NORMAL | mmol/L | [facility] | | | Urine | RANGE ESTABLISHEDTesting | | LABORATORY | | | | performed at [facility], [address] | | | | | [address], | | | | | | [place] [address] | | | | + + + + + + + + | Specimen | + + | Urine - Urine | | specimen (specimen) | + + + + + + + | Performing | Address | City/State/Zipcode | Phone Number | | Organization | | | | + + + + + | [facility] | [address] | [place] [address] | [phone] | + + + + + Urinalysis [...] - 1.030 | [facility] | | | [place], | | | LABORATORY | | | [...] | | | | | Urine | Blvd;[place] [address] | | | | + + + + + + + + | Specimen | + + | Urine - Urine | | specimen (specimen) | + + + + + + + | Performing | Address | City/State/Zipcode | Phone Number | | Organization | | | | + + + + + | [facility] | [address] | [place] [address] | [phone] | + + + + + Eosinophil [...] at | | | | | | [facility], [address] | | | | | | [place] | | | | | | [address] | | | | + + + + + + + + | Specimen | + + | Urine - Urine | | specimen (specimen) | + + + + + + + | Performing | Address | City/State/Zipcode | Phone Number | | Organization | | | | + + + + + | [facility] | [address] | [place] [address] | [phone] | + + + + + Basic [...] 5 (L)Comment: GFR <60: | >60 | [facility] | | | GFR | CHRONIC KIDNEY [...] | | | | | performed at [facility] | | | | | | [facility];[place], [place] | | | | | | [address] | | | | + + + + + + + + | Specimen | + + | Blood | + + + + + + + | Performing | Address | City/State/Zipcode | Phone Number | | Organization | | | | + + + + + | [facility] | [address] | [place] [address] | [phone] | + + + + + ECG [...] (500), | | | | | | development editor Gideon Montano | | | | [...] [facility] | | | | performed at [facility];[address] | | LABORATORY | | | | [facility];[place], [place] | | | | | | [address] | | | | + + + + + + + + | Specimen | + + | | + + + + + + + | Performing | Address | City/State/Zipcode | Phone Number | | Organization | | | | + + + + + | [facility] | [address] | [place] [address] | [phone] | + + + + + Comprehensive [...] | | | | | performed at [facility];[address] | | | | | | [facility];[place], [place] | | | | | | [address] | | | | + + + + + + + + | Specimen | + + | Blood | + + + + + + + | Performing | Address | City/State/Zipcode | Phone Number | | Organization | | | | + + + + + | [facility] | [address] | [place] [address] | [phone] | + + + + + CBC [...] | | | Absolute | performed at [facility];[address] | [address] | LABORATORY | | | | [address];[place], [place] | | | | | | [address] | | | | + + + + + + + + | Specimen | + + | Blood | + + + + + + + | Performing | Address | City/State/Zipcode | Phone Number | | Organization | | | | + + + + + | [facility] | [address] | [place] [address] | [phone] | + + + + + documented in this encounter Visit Diagnoses + + | Diagnosis | + + | NELIA (acute kidney injury) ([facility]) - Primary Acute kidney failure, unspecified | + + | Acute renal failure, unspecified acute renal failure type ([facility]) | + + | ESRD (end stage renal disease) ([facility]) End stage renal disease | + + | CKD (chronic kidney disease) stage 5, GFR less than 15 ml/min ([facility]) Chronic kidney | | disease, Stage V [...] long-term current use of | | insulin ([facility]) | + + | Anemia in ESRD (end-stage renal disease) ([facility]) Anemia in chronic kidney disease | + + | Hypoalbuminemia Other disorders of plasma protein metabolism | + + | At high risk for falls Personal history of fall | + + | 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
--- OUTSIDE RECORDS SUMMARY | ~2020-08-10 | XMS | Encounter Summary ---
Demographics + + + | Address | [address] | | | [place] [address] | + + + | Home Phone [...] | + + +---------+ + | Rosaura Privjimym | ECON | Unknown | | + + +---------+ + | Kadie Mancilla | ECON | Unknown | | + + +---------+ + Care Team Providers + +------+ + | Care Mission Worker Name | Role | Phone | [...] [place] | | | | | | stage 5, GFR | [address] | | | | | | less than | Phone: | | | | | | 15 ml/min | [phone] | | | | | | (HCC) | Fax: | | | | | | Procedures | [phone] | | | | | | VAS Arm | | | | | | | Bilateral | | | | | | | Mapping For | | | | | | | Dialysis | | | +--------+--------+ + + + [...] | | | | | disease) | [place], [place] | | | | | | stage 5, GFR | [address] | | | | | | less than | Phone: | | | | | | 15 ml/min | [phone] | | | | | | ([facility]) | Fax: | | | | | | Procedures | [phone] | | | | | | VAS Arm | | | | | | | Bilateral | | | | | | | Mapping For | | | | | | | Dialysis | | | +--------+--------+ + + + + Encounter Details +--------+ + + + + | Date | Type | Department | Care Team | Description | +--------+ + + + + | 12/29/ | Hospital | [facility] | | CKD (chronic kidney | | 2020 | Encounter | VASCULAR SURGERY | | disease) stage 5, | | | | ULTRASOUND [address] | | GFR less than 15 | | | | [address] [place] | | ml/min ([facility]) | | | | [place], [place] | | | | | | [address] | | | | | | [phone] | | | +--------+ + + + [...] mg by mouth | | 0 | /25/20 | | | (NORVASC) 5 mg | Daily. | | | 20 | | | tablet | | | | | | + + + +---------+ + + | atorvaSTATin | Take 20 mg by mouth | | 0 | 07/11/20 | | | (LIPITOR) 20 mg | [...] + +---------+ + + | amLODIPine | 5 mg. | | 0 | 07/21/20 | | | (NORVASC) 10 MG | | | | 19 | 0 | | tablet | | | | | | + + + +---------+ + + | | Take 25 mg by mouth | | 0 | 12/15/19 | | | hydroCHLOROthiazide | Daily. | | | 20 | 0 | | 25 mg tablet | | | | | | [...] | | | | | | [place] [address] | | | | | | [phone] | | | | | | | | +--------+---------+ + + + documented as of this encounter Procedures + +--------+ + + + | Procedure Name | Priori | Date/Time | Associated Diagnosis | Comments | | | ty | | | | + +--------+ + + + | VAS ARM BILATERAL | Routin | 12/29/2019 | CKD (chronic | Results for this | | MAPPING FOR DIALYSIS | e | 2:43 PM | kidney disease) | procedure are in the | | | | PST | stage 5, GFR less | results section. | | | | | than 15 ml/min (HCC) | | + +--------+ + + + documented in this encounter Results VAS Arm Bilateral Mapping For Dialysis (12/29/2019 2:43 PM PST) + + | Specimen | + + | | + + + + + | Impressions | Performed At | + + + | Bilateral upper extremity vein mapping. Measurements above. | [facility] | | Signed by: Jerson Guadarrama, Eamon Sign Date/Time: 01/01/2020 6:41 AM | | | | | + + + + + + | Narrative | Performed At | + + + | UPPER EXTREMITY VEIN MAPPING CLINICAL INFORMATION: Pre | [facility] | | Dialysis. COMPARISON: None PROCEDURE: Duplex evaluation of | | | the veins of the upper extremities. All measurements in mm. Top | | | number is depth of vein. Bottom number is diameter of vein. | | | Measurements performed with tourniquet. FINDINGS: Right side: | | | Cephalic vein: Proximal 5.3, mid 5.0, elbow 5.5, upper forearm 3.7, | | | mid forearm 3.9, distal forearm 3.7. Basilic vein: Proximal 6.1, | | | mid 4.5, elbow 3.4, upper forearm 1.5. Left side: Cephalic vein: | | | Proximal 7.0, mid 6.7, elbow 4.9, upper forearm 4.6, mid forearm 4.0, | | | distal forearm 1.3. Basilic vein: Mid 4.6, elbow 6.0, upper | | | forearm 4.6, mid forearm 3.5, distal forearm 3.8. | | + + + + + | Procedure Note | + + | Juan, Rad Results In 01/01/2020 6:45 AM PST | | UPPER EXTREMITY VEIN MAPPING | | | | CLINICAL INFORMATION: | | Pre Dialysis. | | | | COMPARISON: | | None | | | | PROCEDURE: | | Duplex evaluation of the veins of the upper extremities. All | | measurements in mm. Top number is depth of vein. Bottom number is | | diameter of vein. Measurements performed with tourniquet. | | | | FINDINGS: | | Right side: | | Cephalic vein: Proximal 5.3, mid 5.0, elbow 5.5, upper forearm 3.7, mid | | forearm 3.9, distal forearm 3.7. | | | | Basilic vein: Proximal 6.1, mid 4.5, elbow 3.4, upper forearm 1.5. | | | | Left side: | | Cephalic vein: Proximal 7.0, mid 6.7, elbow 4.9, upper forearm 4.6, mid | | forearm 4.0, distal forearm 1.3. | | | | Basilic vein: Mid 4.6, elbow 6.0, upper forearm 4.6, mid forearm 3.5, | | distal forearm 3.8. | | | | IMPRESSION: | | Bilateral upper extremity vein mapping. Measurements above. | | | | | | | | Signed by: Jerson Guadarrama David | | Sign Date/Time: 01/01/2020 6:41 AM | + + + +---------+ + [...] | disease, Stage V | + + documented in this encounter"
--- OUTSIDE RECORDS SUMMARY | ~2020-08-10 | XMS | Encounter Summary ---
Demographics + + + | Address | [address] | | | [place] [address] | + + + | Home Phone [...] Team Providers + +------+ + | Care Silk Spotter Name | Role | Phone | + [...] Description | +--------+---------+ + + + | 02/25/ | Office | [facility] | Cirilo Tijerina DNP | ESRD on dialysis | | 2019 | Visit | VASCULAR SURGERY | [address] | ([facility]) (Primary Dx); | | | | [address] | [place], [place] | AVF (arteriovenous | | | | [place], [place] | [address] | fistula) ([facility]) | | | | [address] | | | | | | [phone] | | | +--------+---------+ + + + [...] +---------+ + + | Blood Pressure | 165/94 | 02/26/2020 1:24 PM | | | | | PDT | | + +---------+ + + | Pulse | 80 | 02/26/2020 1:24 PM | | | | | PDT | | + +---------+ + + | Temperature | - | - | | + +---------+ + + | Respiratory Rate | - | - | | + +---------+ + + | Oxygen Saturation | 93% | 02/26/2020 1:24 PM | | | | | PDT [...] encounter Progress Notes Cirilo Tijerina DNP - 02/26/2020 1:30 PM [facility] [address] [place] [address] Office: [phone] DATE OF VISIT: 02/26/2020 PATIENT NAME: Jude Henley : 1970; AGE: 49 y.o.; Sex:M PHONE NUMBER: ; ; PROVIDER: Cirilo Tijerina DNP PRIMARY CARE / REFERRING PHYSICIAN: No ref. provider found / Yrn Buckley MD / [address] [place] / [place] [address] REASON FOR EVALUATION / CHIEF COMPLAINT: Vascular Surgery Postoperative Visit for AVF creation The patient presents today for a Vascular Surgery Postoperative Visit. The patient is statu s post left brachiocephalic AVF creation, which was performed on 01/05/2020 at the [facility] Operating Room. The patient is not having any pain. The patient denies fever, wound drainage, increasing redness, pus, increasing pain, increasing swelling. Physic al examination revealed surgical incision is healed. He has good thrills over the AVF site. 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 Rothman. The patient is a right handed person. The patient is r eceiving hemodialysis on Wednesday, and Wednesday via right upper chest tunneled l[facility] at [facility]. VITAL SIGNS: BP (!) 165/94 | Pulse 80 | SpO2 93% PHYSICAL EXAM: Constitutional: Well nourished, no signs of distress Cardiovascular: Normal rate, regular rhythm. Pulmonary/Chest: No respiratory distress. Tunneled catheter in place. Abdominal: Soft. No abdominal distension or tenderness. Musculoskeletal: Normal range of motion. Extremities: No edema, cyanosis or clubbing. Neurological: He is alert and oriented. VASCULAR: left upper arm examination showed normal thrills in the AV Fistula, mult iple side branches noted. Surgical incision is healed. Imagin02/26/2020 US AVF Arterial inflow unremarkable >60% stenosis at anastomosis, ratio 3.6 Volume flow normal throughout AVF anastomosis at radial and ulnar bifurcation Assessment & Plan: ESRD & s/p AV fistula creation - May access right arm AVF start on 02/27/2020 1) We recommend using a light tourniquet to facilitate initial access of AVF. 2) The fistula should be accessed with 1 small needle for a week, then 2 small needles for the second week, then 2 large needles in the 3rd and 4th weeks if no further issue. 3) The patient will return for tunneled hemodialysis catheter removal when the AVF can be a ccessed without problem with 2 large needles for 2 weeks. Cirilo Tijerina DNP documented in [...] | | | | | | [place] [address] | | | | | | [phone] | | | | | | | [...]
--- OUTSIDE RECORDS SUMMARY | ~2020-08-10 | XMS | Encounter Summary ---
Demographics + + + | Address | [address] | | | [place] [address] | + + + | Home Phone [...] Providers + +------+ + | Care Inspector Metal Can Name | Role | Phone | + +------+ + | Yrn Buckley MD | PCP | | + +------+ + Encounter Details +--------+ + + + + | Date | Type | Department | Care Team | Description | +--------+ + + + + | 08/08/ | Orders Only | [facility] | Jude Ruiz, | | | 2019 | | NEPHROLOGY [place] | MAINTENANCE SHOP WELDER [address] | | | | | [address] [place] | [address] [address] [place], | | | | | [address] [place], [place] | [place] [address] | | | | | [address] | [phone] | | | | | [phone] | | | +--------+ + + + [...] documented as of this encounter Progress Notes Jude Ruiz ARNP - 08/08/2020 1:02 PM PDTRx Gabapentin documented in this encounter Plan of Treatment +--------+---------+ + + + | Date | Type | Specialty | Care Team | Description | +--------+---------+ + + + | 09/30/ | Office | Cardiology | Aditya Monzon, | | | 2019 | Visit | | MD [address] | | | | | | [place] | | | | | | [place] [address] | | | | | | [phone] | | | | | | | | +--------+---------+ + + + documented as of this encounter Visit Diagnoses Not on filedocumented in this encounter"
--- OUTSIDE RECORDS SUMMARY | ~2020-08-10 | XMS | Encounter Summary ---
Demographics + + + | Address | [address] | | | [place] [address] | + + + | Home Phone | | + + + | Preferred Language | Unknown | + + + | Marital Status | Single | + + + | Sikhism Affiliation | 1041 | + + + | Race | White | + + + | Ethnic Group | Not or | + + + Author + + + | Author | [facility] | | | and [place] | + + + | Organization | [facility] | | | [...] Team Providers + +------+ + | Care Machine Maintenance Technician Name | Role | Phone | [...] + + | 01/03/ | Telephone | [facility] | Rupal Black, | Surgery Appointment | | 2020 | | VASCULAR SURGERY | RN | | | | | [address] | | | | | | [place] | | | | | | [address] | | | | | | [phone] | | | +--------+ + + + [...] | | | | | | [place] [address] | | | | | | [phone] | | | | | | | | +--------+---------+ + + + documented as of this encounter Visit Diagnoses Not on filedocumented in this encounter"
--- OUTSIDE RECORDS SUMMARY | ~2020-08-10 | XMS | Encounter Summary ---
Demographics + + + | Address | [address] | | | [place] [address] | + + + | Home Phone [...] Author + + + | Author | [facility] | | | and [place] | + + + | Organization | [facility] | | [...] Team Providers + +------+ + | Care Awning Spreader Name | Role | Phone | + [...] Description | +--------+---------+ + + + | 01/05/ | Surgery | [facility] | Elpidio Gunter MD | INSERTION AV FISTULA | | 2020 | | [facility] | [address] | | | | | OPER[address] | [place], [place] | | | | | [address] | [address] | | | | | [place], [place] | [phone] | | | | | [address] | | | | | | [phone] | | | +--------+---------+ + + + [...] + + + | Blood Pressure | 144/78 | 01/05/2020 2:35 PM | | | | | PST | | + + + + + | Pulse | 82 | 01/05/2020 2:35 PM | | | | | PST | | + + + + + | Temperature | 36.6 C (97.8 F) | 01/05/2020 2:35 PM | | | | | PST | | + + + + + | Respiratory Rate | 20 | 01/05/2020 2:35 PM | | | | | PST | | + + + + + | Oxygen Saturation | 97% | 01/05/2020 2:35 PM | | | | | PST | | + + + + + | Inhaled Oxygen | - | - | | | Concentration | | | | + + + + + | Weight | 92.5 kg (203 lb 14.8 | 01/05/2020 2:30 PM | | | | oz) | [...] might be different f rom the original. [facility] Service: Hospitalist Physician Discharge Summary Patient ID: [...] Dr Rothman, nephrology, and was sent to [facility] emergency department due to uremia and concerns [...] hospitalist. Hospital course: Patient was admitted to [facility] with a both presenting complaint. Patient underwent [...] zaragoza coordinated with outpatient dialysis centers in [facility] to estab [facility] care time for the patient. Eventually [...] bleeding. Anemia will be further managed by nephr shahnaz/Dr. Lorna VÁZQUEZ with ongoing dialysis treatments including Epogen injections/iron as need ed. 2. Visual impairment including likely cataract opacification as well as most likely progre ssive diabetic retinopathy. Patient mentioned that he is going to contact his ophthalmologi and Ольга/asteral to the area for reevaluation now that [...] AV FISTULA; Surgeon: Elpidio Gunter MD; Location: [facility] MAIN OR OTHER SURGICAL HISTORY Left 2018 [...] creation/wound healing well. LABS: Recent Labs Lab 01/10/2052101/08/2043401/07/2035401/06/20 0452 WBC 8.64 8.71 8.83 7.59 HGB 7.4* 7.7* 8.4* 8.0* HCT 23.6* 24.0* 25.7* 24.1* PLT 194 195 214 197 MONOPCT 8.70 -- 8.60 8.30 Recent Labs Lab 01/10/2052101/08/2043401/07/2035401/05/20 0518 01/04/202058 NA 134* 139 137 < > 137 [...] interval not displayed. Phosphorus: Recent Labs Lab 01/07/20354 PHOS 5.2* Recent Labs Lab 01/10/2052101/06/20 0515 01/05/20 0518 MG 1.5* 1.5* 1.9 Disposition: Home under care of the family Follow up: Elpidio Gunter MD [address] [place] [address] In 2 weeks For posthospitalization reevaluation [place] [id number] [place] [facility] [phone] Go on 01/11/2020 Dialysis begins at 1:30 pm. Please arrive 15 minutes early to fill out paperwork. Yrn Buckley MD [address] [facility] [place] [address] In 1 week For posthospitalization reevaluation Discharge [...] cuts, scrapes, or blows. Date Last Reviewed: 11/08/201619997104-2973 [employer]. [address] [place] [address]. All righ ts reserved. This information is not intended as a substitute for professional medical care. Always follow your healthcare professional's instructions. AttachmentsThe following attachments cannot be sent through Care Everywhere.Senna tablets o r capsules (Spanish)documented in this encounter Medications at Time of [...] Abnormal Lab (GFR [address] Bill.) Recommendations: No acute ACCOUNTS RECEIVABLE ASSISTANT indication. Plan it for tomorrow No IVF [...] time of this encounter. Eros Rothman MD amari Jessica MD - 01/09/2020 7:56 AM PST [facility] Service: Hospitalist Progress Note Pt: Cely Henley AGE/SEX: 49 y.o. male : 1970 ROOM: [facility]/8102- HPC: " Patient Summary: 49-year-old [...] katelin mon. Case discussed with nephrology Dr. Rothman."....per progress [...] 0355 01/06/20 0515 01/06/20 0452 01/05/20 0518 01/04/20 2059 WBC 8.71 8.83 -- 7.59 -- 8.23 [...] AV FISTULA; Surgeon: Elpidio Gunter MD; Location: [facility] MAIN OR OTHER SURGICAL HISTORY Left 2017 [...] hours. Kamari Jessica MD 01/09/2020 7:56 AM pBri carnes D O - 01/08/2020 4:25 PM PST [facility] Service: Hospitalist Progress Note Hospital Day: LOS: [...] 0435 01/07/20 0355 01/06/20 0515 01/05/20 0518 01/04/202058 NA 139 137 139 < > 137 [...] Abnormal Lab (GFR [address] Bill.) Recommendations: No acute ACCOUNTS RECEIVABLE ASSISTANT indication. Plan it for tomorrow No IVF [...] time of this encounter. Eros Rothman MD Bri Abarca DO - 01/07/2020 7:59 AM PST [facility] Service: Hospitalist Progress Note Hospital Day: LOS: [...] Inpatient. Code Status: Full Code Dictation and telephone coin box collector or software, [employer], used which may contain error for similar s ounding words even after review. Personal communication requested for any clarification. Bri Bishop DO 01/07/2020 7:59 AM Hayes Correa MD - 01/06/2020 9:40 AM PST [facility] Service: Hospitalist Progress Note Hospital Day: LOS: [...] Recent Labs Lab 01/06/20 0452 01/05/20 1537 01/05/20 0518 01/04/202058 WBC 7.59 -- 8.23 9.01 HGB 8.0* 7.8* 6.7* 7.7* HCT 24.1* 23* 20.5* 23.2* PLT 197 -- 198 239 MONOPCT 8.30 -- 7.50 7.90 Recent Labs Lab 01/06/20 0515 01/05/20 1410 01/05/20 0518 01/04/202058 NA 139 138 137 < > 136 [...] Inpatient. Code Status: Full Code Dictation and telephone coin box collector or software, [employer], used which may contain error for similar s ounding words even after review. Personal communication requested for any clarification. Hayes Mason MD 01/06/2020 9:40 AM Hayes Correa MD - 0 01/05/2020 7:48 AM PST [facility] Service: Hospitalist Progress Note Hospital Day: LOS: [...] 152/91 Pulse: 82 87 87 88 Resp: Temp: 37 C (98.6 F) 37 C [...] normal. DATA, personally reviewed Recent Labs Lab 01/05/2018 01/04/20205801/02/20 WBC 8.23 9.01 -- HGB 6.7* 7.7* 7.5* HCT 20.5* 23.2* -- PLT 198 239 -- MONOPCT 7.50 7.90 6.3 Recent Labs Lab 01/05/2018 01/05/203 01/04/202058 NA 137 136 136 K 3.7 [...] Inpatient. Code Status: Full Code Dictation and telephone coin box collector or software, [employer], used which may contain error for [...] Elpidio Gunter MD - 01/05/2020 9:14 AM [facility] Service: Vascular Surgery Pre-Operative History & [...] Dr Rothman, nephrology, and was sent to e emergency department due to uremia and concerns [...] use included cigarettes. He has never used s [employer] tobacco. He reports previous alcohol use. He [...] and sodium bicarbonate, as prescribed by his stewardesses teacher NovoLog sliding scale Hydralazine PRN Pain management Antiemetic therapy DVT GI prophylaxis CODE STATUS- Full code Mike Osborn MD 01/04/20 lpidio Gunter MD - 12/21/2019 3:30 PM PSTFormatting of [...] CV: No peripheral edema, rate regular SKIN: [place], warm, dry without rash/lesion MS: ROM not [...] agree with its contents. Signed by: Fernanda Galeana and Jose Greenfield, Scribe 12/21/19, 2:52 PM Elpidio Gunter MD documented [...] the submitted pre-sandoval orders. Eros Rothman MD [facility], Eros Simon MD - 9:07 AM [...] 1410 01/05/20 0825 01/05/20 0518 01/05/20 0023 01/04/209 BUN -- 104* -- 109* 106* 106* [...] Abnormal Lab (GFR [address] Accum.) " Very weak progressively for 2 weeks. [...] file Gets together: Not on file Attends jainism service: Not on file Active member of [...] Abnormal Lab (GFR [address] Bill.) VOLUME: EABV is slightly down No IVF need. With the planned ACCOUNTS RECEIVABLE ASSISTANT, his nausea & PO intake will get better No diuresis There is no acute UF indication Given his tendency for anasarca: Encourage adequate intake & close dietitian F/U. Encourage ambulation safely. Encourage the adequate use of an incentive spirometer. RENAL FUNCTION: Severely low GFR There is an acute ACCOUNTS RECEIVABLE ASSISTANT indication No IVF Strict I/O & daily [...] frequently ELECTROLYTES: Abnormal. There is an acute ACCOUNTS RECEIVABLE ASSISTANT indication Sodium: ok Potassium: ok Calcium: corca [...] this patient in consult urgently today. Pleas e do not hesitate to call me at any time with questions or concerns. Eros Rothman MD documented in this enco unter ED Notes Maury Wilson, - 01/04/2020 9:15 PM PSTFormatting of this note might be differen t from the original. [facility] Department of Emergency Medicine 9:15 PM No [...] file Gets together: Not on file Attends jainism service: Not on file Active member of [...] sore throat CV/Resp: Negative for chest pain, [id number], cough GI: Negative for abdominal pain, nausea, [...] tablet 5 mg ( Oral MAR Unhold 2/281647) atorvaSTATin (LIPITOR) tablet 20 mg (20 mg [...] (pen) 16 Units ( Subcutaneous MAR Unhold 1647) insulin lispro (humaLOG) injection (vial) 5 Units (5 Units Subcutaneous Given 01/05/201813) ferric gluconate (FERRLECIT) 125 mg in sodium chloride 0.9% 100 mL IVPB (125 mg Intravenous New Bag 01/05/20 8606) sodium chloride 0.9% (NS) bolus 100 mL ( Intravenous MAR Unhold 01/05/201647) sodium chloride 0.9% (NS) infusion ( Intravenous Continued by Anesthesia 01/05/20 1546) phenol (CHLORASEPTIC) spray 1-2 spray (has no [...] 2 g (2 g Intravenous New Bag 01/05/20 0936) midazolam (VERSED) 1 mg/mL injection (1 mg Intravenous Given 01/05/20 0935) fentaNYL (PF) injection (50 mcg Intravenous Given 01/05/20 0936) lidocaine 1% injection (10 mLs Infiltration Given 01/05/20 0936) heparin 1,000 units/mL injection (3,800 Units Intravenous Given 01/05/20 0940) heparin 1,000 units/mL injection 3,400 Units (3,400 Units Intracatheter Given 01/05/20 1440) epoetin harry-epbx (RETACRIT) 10,000 units/mL injection 10,000 Units (10,000 Units Intraveno us Given 01/05/20 1428) ceFAZolin in dextrose (ANCEF) IVPB 2 g (2 g Intravenous Given 01/05/20 1541) Records Reviewed Old medical records. Nursing notes. No prior [facility] ED visits available for review. Laboratory Evaluation Results Procedure Component Value Ref Range Date/Time Comprehensive Metabolic Panel [[id number]] (Abnormal) Collected: 01/04/202058 Order Status: Completed Specimen: [...] Estimated GFR 5 >60 mL/min/1.73m2 CK Total [[id number]] Collected: 01/04/202058 Order Status: Completed Updated: 01/04/20 2221 CK TOTAL 126 55 - 400 U/L CBC with Differential [[id number]] (Abnormal) Collected: 01/04/202058 Order Status: Completed Specimen: [...] Interpretation==== Time: 2112 Rate: 82 Rhythm: Sinus [place]: normal Intervals: normal ST: normal Other: none No old for comparison Overall: Normal EKG Interpreted by Maury Wilson D.O. Rhythm strip analysis: NSR Imaging Results None 1. Acute renal failure, unspecified acute renal failure type ([facility]) 2. ESRD (end stage renal disease) ([facility]) 3. ESRD (end stage renal disease) ([facility]) 4. CKD (chronic kidney disease) stage 5, GFR less than 15 ml/min ([facility]) 5. Uremia, acute 6. At high risk for electrolyte imbalance 7. Essential hypertension 8. Hyperphosphatemia 9. Metabolic acidosis 10. Type 2 diabetes mellitus with diabetic nephropathy, with long-term current use of insul in ([facility]) 11. Anemia in ESRD (end-stage renal disease) ([facility]) 12. Hypoalbuminemia Disposition: ED Disposition ED Disposition Condition Comment Admit Follow-up Information Elpidio Gunter MD In 2 weeks. Specialty: Vascular Surgery Contact information: [address] [place] [address] [place] [address] Discharge Medications: Current Discharge Medication List [...] Current Outpt/Agency/Support Groups: hemodialysis Community Agency Name: [employer] [employer] Home Equipment at Discharge: 4WW Equipment Used at Home: none Pharmacy Pharmacy/Medication needs: ([facility], [place]) Notes: Dialysis coordinator Danette notified CM this morning that pt has been set up with a [facility], Sat at 1:30 pm. Pt has been notified. 4WW delivered by [facility]. PT is recommending home health for pt, but he notified CM that he would pre randall out patient physical therapy instead. CM notified Hospitalist of pt's preference and out patient PT orders placed. No further CM discharge needs expressed. Electronically signed: Ashley Delgado RN 01/10/2020 12:43 PM lan of Latrice johnston, Dulce Maria Manriquez RN - 01/10/2020 9:51 AM PST Problem: Fall Injury Risk Goal: Absence of Fall and Fall-Related Injury Outcome: Ongoing, progressing Problem: Adult Inpatient Plan of Care Goal: Plan of Care Review Outcome: Ongoing, progressing Problem: Infection Goal: Infection Symptom Resolution Outcome: Ongoing, progressing Note: WBC WDL. Pt remains on contact enteric isolation. No signs of infection noted. Dulce Maria Barakat RN lan of Yeimy So PT - 01/09/2020 3:23 PM PSTFormatting of this note might be different from e sean. Physical Therapy Initial Evaluation Note Recommended discharge [...] pt is never home alone and r leeanneves assist from father and sister at baseline, [...] have AFOs on when going to the [place] at night. Precautions Precaution Comment: bilat AFOs Precautions/Limitations: falls Impairments Found (describe specific impairments): functional endurance/activity tolerance, gait, locomotion, and balance, sensory integration/regulation, muscle performance, neuromot or Bed Mobility Additional Documentation: supine to/from sit Assistive Device: none Supine to Sit, Level of [place]: independent Sit to Supine, Level of [place]: independent Transfers Transfers Comments: Transfer training using 4WW Additional Documentation: sit to/from stand Sit-Stand, Level of [place]: modified independent Stand-Sit, Level of [place]: modified independent Vhp-Utmph-Gib, Assistive Device: 4 wheeled walker (4WW), none Safety Issues: loses balance backward Impairments: strength decreased, impaired balance, sensation decreased Gait Gait Comments: Gait training with 4WW Level of [place]: stand by assist Assistive Device: 4 wheeled walker (4WW) Distance (feet): 40x2 Additional Documentation: safety, impairments, stairs (group) Impairments: sensation decreased, strength decreased, impaired balance Stairs Number of Stairs: 1 Handrail Location: left side (ascending)(raised bed rail) Level of [place]: minimal assist (75% patient effort) Assistive Device: [...] All Transfers Goal Most Recent Value LTG [place] Level modified independent at 01/09/2020 1523 LTG Assistive Device 4 wheeled walker (4WW) at 01/09/2020 1523 Gait Goal Most Recent Value LTG [place] Level modified independent at 01/09/2020 1523 LTG Assistive Device 4 wheeled walker (4WW) at 01/09/2020 1523 LTG Distance (feet) 50 at 01/09/2020 1523 Stair Goal Most Recent Value LTG [place] Level contact guard assist at 01/09/2020 1523 [...] promoted. Dulce Maria Barakat RN sharmila of Care - Lynnette Khanna RN - 01/09/2020 6:02 AM PSTVSS. Patient slept through the night. No acute changes from initial shift assessment. Chart check review complete. Will pass cares on to day RN. Lynnette Khanna RN lan of Care - [...] Steps Taken Toward Discharge: Per Hospitalist report, [place] dialysis center will be ope abbey up more chair times and Dr. Rothman plans to speak with the center about getting pt estab lished there. Next Steps: CM to follow-up with dialysis coordinator Danette. Community Support Services Current Outpt/Agency/Support Groups: none Discharge Transportation Transportation Needs: family or friend will provide Electronically signed: Ashley Delgado RN 01/08/2020 11:38 AM lan of [place]rice - Dulce Maria Juarez RN - 01/08/2020 [...] this RN. Chantel Irizarry RN lan of Care - Tiffanie Christine Ra, RN - 01/07/2020 3:53 PM PSTAlert and oriented x4, vital signs remain stable, denies pain. Pt reports nausea and emesis x1, medicated per JAN. Pt has had frequent bowel movements zenaida [...] RN at 01/06/2020 5:26 PM PSTPlan of Chantel Rodriguez RN - 01/06/2020 4:13 AM PST Problem: Fall Injury Risk Goal: Absence of Fall and Fall-Related Injury Outcome: Ongoing, progressing VSS. Pt appears to be resting comfortably. Pt c/o nausea this morning, PRN zofran given r elief noted. AVF +T/B. No acute changes since previous shift. Bed in low locked position, ca ll light within reach, hourly rounding for pt needs. End of shift review completed by this R N. Chantel Irizarry RN p Note - Elpidio Gunter MD - 01/05/2020 4:16 PM [facility] Service: Vascular Surgery Operative Note Pre-operative Diagnosis: ESRD and need for watermelon inspector dialysis access Post-operative Diagnosis: same Procedure(s): Left brachiocephalic fistula creation Surgeon: Elpidio Gunter MD Government Operations Consultant(s): KENAN Bunch (PA was required to help [...] Gunter MD 01/05/2020 4:16 PM lan of Care - Jess Lara RN - 01/05/2020 1:01 PM PSTCare Management [...] Lofton RN 01/05/2020 1:01 PM lan of Tiffanie Beckford RN - 01/05/2020 11:00 AM PSTPt alert [...] Elpidio Gunter MD - 01/05/2020 9:44 AM PST [facility] Service: Vascular Surgery Brief Op Note Pre-operative Diagnosis: Acute on chronic renal failure Post-operative Diagnosis: same Procedure(s): Ultrasound guided access of right internal jugular vein Placement of 23 cm tunneled dialysis catheter under fluoroscopic guidance Surgeon: Elpidio Gunter MD Government Operations Consultant(s): None Anesthesia: Moderate sedation and Local anesthesia [...] gain access lan of Ca re - Carlos, Crystal D, RN - 01/05/2020 6:28 AM PSTPt AOx4. SBP 140-162. Afebrile. Voiding QS. Last BS 158 about 0643. Plan is for patient to get dialysis catheter placed today. Mitzy cadet has been NPO shortly after midnight.. Renal ultrasound was scheduled at 0600 today and complete. UA collected and results are in.No further needs on this shift are noted. Will pas s all future cares to day shift RN. Chart review complete. Lou Gonzalez RN lan of Care - Perr inLou RN - 01/05/2020 2:51 AM PST Problem: [...] | | | | | | [place] [id number] | | | | | | [phone] | | | | | | | [...] | Referral | e | renal disease) ([facility]) | | | | | | 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, with | | | | | | long-term current | | | | | | use of insulin ([facility]) | | | | | | At high risk for | | | | | | falls Visual | | | | | | impairment due to | | | | | | diabetes mellitus | | | | | | ([facility]) 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 ([facility]) | | + + +--------+ + + | Ambulatory referral | Outpatient | Routin | At high risk for | Ordered: 01/10/2020 | | to Physical Therapy | Referral | e | falls Visual | | | | | | impairment due to | | | | | | diabetes mellitus | | | | | | ([facility]) 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 | | | | | | 0 | | | 18:46? | | | DYE, | | | CELY | | | | | | F?MRN: | | | | | | [id number] | | | [id number] | | | riteri | | | [...] | | | St. | | | [place] | | | y | | | [...] | | | St. | | | [place] | | | y | | | Hospit | | | al | | | Patien | | | t is | | | curren | | | tly | | | establ | | | ished | | | with | | | St | | | [place] | | | y | | | [...] St | | | | | | [place] | | | y | | | [...] | | | St. | | | [place] | | | y | | | [...] | | | St. | | | [place] | | | y H. | | [...] | | | St. | | | [place] | | | y H. | | [...] | | | MD | | | [employer] Consult[employer] | | | al | | | [...] | | | [phone] | | | [id number] | | | 5c | | | [...] Testing | 65 - 99 mg/dL | [facility] | | | POC | performed at [facility];[address] | | LABORATORY | | | | [address];[place] | | | | | | [address] | | | | + + + + + + + + | Specimen | + + | | + + + + + + + | Performing | Address | City/State/Zipcode | Phone Number | | Organization | | | | + + + + + | [facility] | [address] | [place] [address] | [phone] | + + + + + HEMODIALYSIS [...] Testing | 65 - 99 mg/dL | [facility] | | | POC | performed at [facility];[address] | | LABORATORY | | | | [address];[place], [place] | | | | | | [address] | | | | + + + + + + + + | Specimen | + + | | + + + + + + + | Performing | Address | City/State/Zipcode | Phone Number | | Organization | | | | + + + + + | [facility] | [address] | [place] [address] | [phone] | + + + + + Hemoglobin A1C (01/10/2020 5:22 AM PST) + + + + + + | Component | Value | Ref Range | Performed | Pathologist | | | | | At | Signature | + + + + + + | Hemoglobin | 6.3 (H)Comment: HbA1c | 4.0 - 6.0 % | [facility] | | | A1c | method is [...] | 134Comment: Estimated | <154 mg/dL | [facility] | | | Average | Average Glucose | | LABORATORY | | | Glucose | calculated from | | | | | | hemoglobin A1c by use of | | | | | | the ADArecommended | | | | | | formula.Testing | | | | | | performed at [facility], [address] | | | | | | [address], | | | | | | [place] [address] | | | | + + + + + + + + | Specimen | + + | Blood | + + + + + + + | Performing | Address | City/State/Zipcode | Phone Number | | Organization | | | | + + + + + | [facility] | [address] | [place] [address] | [phone] | + + + + + Magnesium (01/10/2020 5:22 AM PST) + + + + + + | Component | Value | Ref Range | Performed | Pathologist | | | | | At | Signature | + + + + + + | Magnesium | 1.5 (L)Comment: Testing | 1.7 - 2.4 mg/dL | [place] | | | | performed at [facility], [address] | | LABORATORY | | | | [address], | | | | | | [place] [address] | | | | + + + + + + + + | Specimen | + + | Blood | + + + + + + + | Performing | Address | City/State/Zipcode | Phone Number | | Organization | | | | + + + + + | [facility] | [address] | [place] [address] | [phone] | + + + + + CBC [...] | | | Absolute | performed at [facility], [address] | K/uL | LABORATORY | | | | [address], | | | | | | [place] [address] | | | | + + + + + + + + | Specimen | + + | Blood | + + + + + + + | Performing | Address | City/State/Zipcode | Phone Number | | Organization | | | | + + + + + | [facility] | [address] | [place] [address] | [phone] | + + + + + Basic [...] 9 (L)Comment: GFR <60: | >60 | [place] [...] | | | | | performed at [facility], [address] | | | | | | [facility], | | | | | | [place] [address] | | | | + + + + + + + + | Specimen | + + | Blood | + + + + + + + | Performing | Address | City/State/Zipcode | Phone Number | | Organization | | | | + + + + + | [facility] | [address] | [place] [address] | [phone] | + + + + + POC Glucose (01/09/2020 8:40 PM PST) + + + + + + | Component | Value | Ref Range | Performed | Pathologist | | | | | At | Signature | + + + + + + | Glucose, | 176 (H)Comment: Testing | 65 - 99 mg/dL | [facility] | | | POC | performed at [facility];[address] | | LABORATORY | | | | Lionel Garcia;[place] | | | | | | [address] | | | | + + + + + + + + | Specimen | + + | | + + + + + + + | Performing | Address | City/State/Zipcode | Phone Number | | Organization | | | | + + + + + | [facility] | [address] | [place] [address] | [phone] | + + + + + POC Glucose (01/09/2020 4:51 PM PST) + + + + + + | Component | Value | Ref Range | Performed | Pathologist | | | | | At | Signature | + + + + + + | Glucose, | 89Comment: Testing | 65 - 99 mg/dL | [facility] | | | POC | performed at [facility];[address] | | LABORATORY | | | | [address];[place] | | | | | | [address] | | | | + + + + + + + + | Specimen | + + | | + + + + + + + | Performing | Address | City/State/Zipcode | Phone Number | | Organization | | | | + + + + + | [facility] | [address] | [place] [address] | [phone] | + + + + + POC Glucose (01/09/2020 4:27 PM PST) + + + + + + | Component | Value | Ref Range | Performed | Pathologist | | | | | At | Signature | + + + + + + | Glucose, | 67Comment: Testing | 65 - 99 mg/dL | [facility] | | | POC | performed at [facility];888 | | LABORATORY | | | | [address];[place], [place] | | | | | | [address] | | | | + + + + + + + + | Specimen | + + | | + + + + + + + | Performing | Address | City/State/Zipcode | Phone Number | | Organization | | | | + + + + + | [facility] | [address] [facility] | [place] [address] | [phone] | + + + + + POC Glucose (01/09/2020 11:49 AM PST) + + + + + + | Component | Value | Ref Range | Performed | Pathologist | | | | | At | Signature | + + + + + + | Glucose, | 85Comment: Testing | 65 - 99 mg/dL | [facility] | | | POC | performed at [facility];[address] | | LABORATORY | | | | [address];[place], [place] | | | | | | [address] | | | | + + + + + + + + | Specimen | + + | | + + + + + + + | Performing | Address | City/State/Zipcode | Phone Number | | Organization | | | | + + + + + | [facility] | [address] | [place] [address] | [phone] | + + + + + POC [...] | | | POC | performed at [facility];[address] | | LABORATORY | | | | [address];[place] | | | | | | [address] | | | | + + + + + + + + | Specimen | + + | | + + + + + + + | Performing | Address | City/State/Zipcode | Phone Number | | Organization | | | | + + + + + | [facility] | [address] | [place] [address] | [phone] | + + + + + POC Glucose (01/09/2020 3:53 AM PST) + + + + + + | Component | Value | Ref Range | Performed | Pathologist | | | | | At | Signature | + + + + + + | Glucose, | 105 (H)Comment: Testing | 65 - 99 mg/dL | [facility] | | | POC | performed at [facility];888 | | LABORATORY | | | | [address];[place], [place] | | | | | | [address] | | | | + + + + + + + + | Specimen | + + | | + + + + + + + | Performing | Address | City/State/Zipcode | Phone Number | | Organization | | | | + + + + + | [facility] | [address] | [place] [address] | [phone] | + + + + + POC Glucose (01/08/2020 8:24 PM PST) + + + + + + | Component | Value | Ref Range | Performed | Pathologist | | | | | At | Signature | + + + + + + | Glucose, | 81Comment: Testing | 65 - 99 mg/dL | [facility] | | | POC | performed at [facility];[address] | | LABORATORY | | | | [address];[place] | | | | | | [address] | | | | + + + + + + + + | Specimen | + + | | + + + + + + + | Performing | Address | City/State/Zipcode | Phone Number | | Organization | | | | + + + + + | [facility] | [address] | [place] [address] | [phone] | + + + + + POC Glucose (01/08/2020 4:06 PM PST) + + + + + + | Component | Value | Ref Range | Performed | Pathologist | | | | | At | Signature | + + + + + + | Glucose, | 85Comment: Testing | 65 - 99 mg/dL | [facility] | | | POC | performed at [facility];[address] | | LABORATORY | | | | [address];[place] | | | | | | [address] | | | | + + + + + + + + | Specimen | + + | | + + + + + + + | Performing | Address | City/State/Zipcode | Phone Number | | Organization | | | | + + + + + | [facility] | [address] | [place] [address] | [phone] | + + + + + XR Chest PA and Lateral (01/08/2020 2:04 PM PST) + + | Specimen | + + | | + + + + + | Impressions | Performed At | + + + | Hyperinflation, without infiltrate. Air-fluid levels in bowel in | [facility] | | the upper abdomen. Correlate for ileus. Signed by: Ru, | | | Willie Arthur Sign Date/Time: 01/08/2020 2:13 PM | | + [...] + | Juan, Rad Results In - 01/08/2020 2:17 PM PST | | CHEST [...] | | | POC | performed at [facility];[address] | | LABORATORY | | | | [address];[place] | | | | | | [address] | | | | + + + + + + + + | Specimen | + + | | + + + + + + + | Performing | Address | City/State/Zipcode | Phone Number | | Organization | | | | + + + + + | [facility] | [address] | [place] [address] | [phone] | + + + + + HEMODIALYSIS [...] | | | | | At | [facility] | + + + + + + | Glucose, | 91Comment: Testing | 65 - 99 mg/dL | [facility] | | | POC | performed at [facility];[address] | | LABORATORY | | | | [address];[place], [place] | | | | | | [address] | | | | + + + + + + + + | Specimen | + + | | + + + + + + + | Performing | Address | City/State/Zipcode | Phone Number | | Organization | | | | + + + + + | [facility] | [address] | [place] [address] | [phone] | + + + + + Comprehensive [...] (L) | 10 - 65 U/L | [facility] | | | | | | LABORATORY | | + + + + + + | Estimated | 7 (L)Comment: GFR <60: | >60 | [facility] [...] | | | | | performed at [facility] | | | | | | [address] [facility];[place], [place] | | | | | | [address] | | | | + + + + + + + + | Specimen | + + | Blood | + + + + + + + | Performing | Address | City/State/Zipcode | Phone Number | | Organization | | | | + + + + + | [facility] | [address] | [place] [address] | [phone] | + + + + + CBC [...] LABORATORY | | | | performed at [facility];[address] | | | | | | [address];[place] | | | | | | [address] | | | | + + + + + + + + | Specimen | + + | Blood | + + + + + + + | Performing | Address | City/State/Zipcode | Phone Number | | Organization | | | | + + + + + | [facility] | [address] | [place] [address] | [phone] | + + + + + POC [...] | | | POC | performed at [facility];[address] | | LABORATORY | | | | [address];[place] | | | | | | [address] | | | | + + + + + + + + | Specimen | + + | | + + + + + + + | Performing | Address | City/State/Zipcode | Phone Number | | Organization | | | | + + + + + | [facility] | [address] | [place] [address] | [phone] | + + + + + POC Glucose (01/07/2020 5:44 PM PST) + + + + + + | Component | Value | Ref Range | Performed | Pathologist | | | | | At | Signature | + + + + + + | Glucose, | 132 (H)Comment: Testing | 65 - 99 mg/dL | [facility] | | | POC | performed at [facility];[address] | | LABORATORY | | | | [address];[place] | | | | | | [address] | | | | + + + + + + + + | Specimen | + + | | + + + + + + + | Performing | Address | City/State/Zipcode | Phone Number | | Organization | | | | + + + + + | [facility] | [address] | [place] [address] | [phone] | + + + + + POC Glucose (01/07/2020 4:53 PM PST) + + + + + + | Component | Value | Ref Range | Performed | Pathologist | | | | | At | Signature | + + + + + + | Glucose, | 67Comment: Testing | 65 - 99 mg/dL | [facility] | | | POC | performed at [facility];[address] | | LABORATORY | | | | [address];[place], [place] | | | | | | [address] | | | | + + + + + + + + | Specimen | + + | | + + + + + + + | Performing | Address | City/State/Zipcode | Phone Number | | Organization | | | | + + + + + | [facility] | [address] | [place] [address] | [phone] | + + + + + POC [...] | | | POC | performed at [facility];8 | | LABORATORY | | | | [address];[place], [place] | | | | | | [address] | | | | + + + + + + + + | Specimen | + + | | + + + + + + + | Performing | Address | City/State/Zipcode | Phone Number | | Organization | | | | + + + + + | [facility] | [address] | [place] [address] | [phone] | + + + + + POC [...] | | | POC | performed at [facility];[address] | | LABORATORY | | | | [address];[place] | | | | | | [address] | | | | + + + + + + + + | Specimen | + + | | + + + + + + + | Performing | Address | City/State/Zipcode | Phone Number | | Organization | | | | + + + + + | [facility] | [address] | [place] [address] | [phone] | + + + + + POC Glucose (01/07/2020 7:38 AM PST) + + + + + + | Component | Value | Ref Range | Performed | Pathologist | | | | | At | Signature | + + + + + + | Glucose, | 112 (H)Comment: Testing | 65 - 99 mg/dL | [facility] | | | POC | performed at [facility];[address] | | LABORATORY | | | | [address];[place] | | | | | | [address] | | | | + + + + + + + + | Specimen | + + | | + + + + + + + | Performing | Address | City/State/Zipcode | Phone Number | | Organization | | | | + + + + + | [facility] | [address] | [place] [address] | [phone] | + + + + + Renal [...] 9 (L)Comment: GFR <60: | >60 | [facility] | | | GFR | CHRONIC KIDNEY [...] | | | | | | MDRD [facility] traceable | | | | | | equation.Testing | | | | | | performed at [facility];[address] | | | | | | [address] [facility];[place], [place] | | | | | | [address] | | | | + + + + + + + + | Specimen | + + | | + + + + + + + | Performing | Address | City/State/Zipcode | Phone Number | | Organization | | | | + + + + + | [facility] | [address] | [place] [address] | [phone] | + + + + + CBC [...] | | | Absolute | performed at [facility];[address] | K/uL | LABORATORY | | | | [address];[place], [place] | | | | | | [address] | | | | + + + + + + + + | Specimen | + + | Blood | + + + + + + + | Performing | Address | City/State/Zipcode | Phone Number | | Organization | | | | + + + + + | [facility] | [address] | [place] [address] | [phone] | + + + + + Clostridium [...] C. | Toxin not detected. | | [facility] | | | difficile, | Toxin may [...] at | | | | | | [facility];[address] [place] [address] | | | | | | [facility];[place] [address] | | | | + + + + + + + + | Specimen | + + | Stool - Stool | | specimen (specimen) | + + + + + + + | Performing | Address | City/State/Zipcode | Phone Number | | Organization | | | | + + + + + | [facility] | [address] | [place] [address] | [phone] | + + + + + POC Glucose (01/06/2020 9:04 PM PST) + + + + + + | Component | Value | Ref Range | Performed | Pathologist | | | | | At | Signature | + + + + + + | Glucose, | 103 (H)Comment: Testing | 65 - 99 mg/dL | [facility] | | | POC | performed at [facility];[address] | | LABORATORY | | | | [address];[place] | | | | | | [address] | | | | + + + + + + + + | Specimen | + + | | + + + + + + + | Performing | Address | City/State/Zipcode | Phone Number | | Organization | | | | + + + + + | [facility] | [address] | [place] [address] | [phone] | + + + + + POC [...] | | | POC | performed at [facility];[address] | | LABORATORY | | | | [address];[place], [place] | | | | | | [address] | | | | + + + + + + + + | Specimen | + + | | + + + + + + + | Performing | Address | City/State/Zipcode | Phone Number | | Organization | | | | + + + + + | [facility] | [address] | [place] [address] | [phone] | + + + + + POC Glucose (01/06/2020 11:03 AM PST) + + + + + + | Component | Value | Ref Range | Performed | Pathologist | | | | | At | Signature | + + + + + + | Glucose, | 86Comment: Testing | 65 - 99 mg/dL | [facility] | | | POC | performed at [facility];[address] | | LABORATORY | | | | [address];[place], [place] | | | | | | [address] | | | | + + + + + + + + | Specimen | + + | | + + + + + + + | Performing | Address | City/State/Zipcode | Phone Number | | Organization | | | | + + + + + | [facility] | [address] | [place] [address] | [phone] | + + + + + Renal [...] 6 (L)Comment: GFR <60: | >60 | [facility] [...] | | | | | performed at [facility];[address] | | | | | | [address] [facility];[place], [place] | | | | | | [address] | | | | + + + + + + + + | Specimen | + + | | + + + + + + + | Performing | Address | City/State/Zipcode | Phone Number | | Organization | | | | + + + + + | [facility] | [address] [facility] | [place] [address] | [phone] | + + + + + Magnesium (01/06/2020 5:15 AM PST) + + + + + + | Component | Value | Ref Range | Performed | Pathologist | | | | | At | Signature | + + + + + + | Magnesium | 1.5 (L)Comment: Testing | 1.7 - 2.4 mg/dL | [facility] | | | | performed at [facility];[address] | | LABORATORY | | | | [address];[place], [place] | | | | | | [address] | | | | + + + + + + + + | Specimen | + + | Blood | + + + + + + + | Performing | Address | City/State/Zipcode | Phone Number | | Organization | | | | + + + + + | [facility] | [address] | [place] [address] | [phone] | + + + + + CBC [...] 0.04Comment: Testing | 0.00 - 0.10 | [facility] | | | Absolute | performed at [facility];[address] | K/uL | LABORATORY | | | | [address];[place], [place] | | | | | | [address] | | | | + + + + + + + + | Specimen | + + | Blood | + + + + + + + | Performing | Address | City/State/Zipcode | Phone Number | | Organization | | | | + + + + + | [facility] | [address] | [place] [address] | [phone] | + + + + + Hepatitis B Core Ab, Total (01/05/2020 10:01 PM PST) + + + + + + | Component | Value | Ref Range | Performed | Pathologist | | | | | At | Signature | + + + + + + | Hepatitis B | NON REACTIVEComment: | NR | [facility] | | | Core Ab | Testing performed at | | LABORATORY | | | Total | [facility], [address] | | | | | | [place] | | | | | | [address] | | | | + + + + + + + + | Specimen | + + | Blood | + + + + + + + | Performing | Address | City/State/Zipcode | Phone Number | | Organization | | | | + + + + + | [facility] | [address] | [place] [address] | [phone] | + + + + + Hepatitis B Surface Ag (01/05/2020 9:46 PM PST) + + + + + + | Component | Value | Ref Range | Performed | Pathologist | | | | | At | Signature | + + + + + + | Hepatitis B | NON REACTIVEComment: | NR | [facility] | | | Surface Ag | Testing performed at | | LABORATORY | | | | [facility], [address] | | | | | | [place] | | | | | | [address] | | | | + + + + + + + + | Specimen | + + | Blood | + + + + + + + | Performing | Address | City/State/Zipcode | Phone Number | | Organization | | | | + + + + + | [facility] | [address] | [place] [address] | [phone] | + + + + + Hepatitis [...] | | | | | performed at [facility], [address] | | | | | | [facility], | | | | | | [place] [address] | | | | + + + + + + + + | Specimen | + + | Blood | + + + + + + + | Performing | Address | City/State/Zipcode | Phone Number | | Organization | | | | + + + + + | [facility] | [address] | [place] [address] | [phone] | + + + + + POC [...] | | | POC | performed at [facility];[address] | | LABORATORY | | | | [address];[place] | | | | | | [address] | | | | + + + + + + + + | Specimen | + + | | + + + + + + + | Performing | Address | City/State/Zipcode | Phone Number | | Organization | | | | + + + + + | [facility] | [address] | [place] [address] | [phone] | + + + + + POC Glucose (01/05/2020 5:03 PM PST) + + + + + + | Component | Value | Ref Range | Performed | Pathologist | | | | | At | Signature | + + + + + + | Glucose, | 105 (H)Comment: Testing | 65 - 99 mg/dL | [facility] | | | POC | performed at [facility];[address] | | LABORATORY | | | | [address];[place], [place] | | | | | | [address] | | | | + + + + + + + + | Specimen | + + | | + + + + + + + | Performing | Address | City/State/Zipcode | Phone Number | | Organization | | | | + + + + + | [facility] | [address] | [place] [address] | [phone] | + + + + + POC ISTAT, CG8, Venous (01/05/2020 3:37 PM PST) + + + + + + | Component | Value | Ref Range | Performed | Pathologist | | | | | At | Signature | + + + + + + | pH, Venous, | 7.437 (H) | 7.310 - 7.410 | [facility] | | | POC | [...] | | | POC | performed at [facility];888 | g/dL | LABORATORY | | | | [address];[place], [place] | | | | | | [address] | | | | + + + + + + + + | Specimen | + + | | + + + + + + + | Performing | Address | City/State/Zipcode | Phone Number | | Organization | | | | + + + + + | [facility] | [address] | [place] [address] | [phone] | + + + + + POC [...] | | | POC | performed at [facility];[address] | | LABORATORY | | | | [address];[place] | | | | | | [address] | | | | + + + + + + + + | Specimen | + + | | + + + + + + + | Performing | Address | City/State/Zipcode | Phone Number | | Organization | | | | + + + + + | [facility] | [address] | [place] [address] | [phone] | + + + + + Basic [...] 7.7 (L) | 8.5 - 10.5 | [facility] | | | | | mg/dL | LABORATORY | | + + + + + + | Estimated | 5 (L)Comment: GFR <60: | >60 | [facility] | | | GFR | CHRONIC KIDNEY [...] | | | | | performed at [facility] | | | | | | [facility];[place], [place] | | | | | | [address] | | | | + + + + + + + + | Specimen | + + | Blood | + + + + + + + | Performing | Address | City/State/Zipcode | Phone Number | | Organization | | | | + + + + + | [facility] | [address] | [place] [address] | [phone] | + + + + + HEMODIALYSIS (01/05/2020 1:41 PM PST) + + + | Narrative | Performed At | + + + | Eros H Akoum, MD 02/04/2020 10:23 PM Hospital Problem List: [...] | | | 01/05/20 0518 01/05/20 0023 01/04/202058 BUN -- 104* -- | | | [...] | | | POC | performed at [facility];[address] | | LABORATORY | | | | [address] [facility];[place], [place] | | | | | | [address] | | | | + + + + + + + + | Specimen | + + | | + + + + + + + | Performing | Address | City/State/Zipcode | Phone Number | | Organization | | | | + + + + + | [facility] | [address] | [place] [address] | [phone] | + + + + + IR [...] | | dialysis catheter under fluoroscopic guidance. Shelley Gunter MD | | | ASSISTANTNone. ANESTHESIAModerate [...] | | | patient was referred to me for placement of a PermCath for dialysis [...] and | | | brought to the collaborating supervising physician. The patient was placed supine on the collaborating supervising physician | | | table. The patient was [...] + + | Performing | Address | City/State/[facility] | Phone Number | | Organization | [...] BANK | Testing performed at | | [facility] | | | COMMENT | [facility];[address] | | LABORATORY | | | | [address];[place] [address] | | | | + + + + + + + + | Specimen | + + | | + + + + + + + | Performing | Address | City/State/Zipcode | Phone Number | | Organization | | | | + + + + + | [facility] | [address] | [place] [address] | [phone] | + + + + + Type [...] + + + | BB BAND | [id number] | | [facility] | | | | | | LABORATORY | | + + + + + + | UNIT # | [id number] | | [facility] | | | | [...] + | CROSSMATCH | COMPATIBLETesting | | [facility] | | | RESULT | performed at [facility];[address] | | LABORATORY | | | | [address];[place], [place] | | | | | | [address] | | | | + + + + + + + + | Specimen | + + | Blood | + + + + + + + | Performing | Address | City/State/Zipcode | Phone Number | | Organization | | | | + + + + + | [facility] | [address] | [place] [address] | [phone] | + + + + + Ferritin (01/05/2020 8:25 AM PST) + + + + + + | Component | Value | Ref Range | Performed | Pathologist | | | | | At | Signature | + + + + + + | Ferritin | 237Comment: Testing | 11 - 450 ng/mL | [facility] | | | | performed at [facility], [address] | | LABORATORY | | | | [address], | | | | | | [place] [address] | | | | + + + + + + + + | Specimen | + + | Blood | + + + + + + + | Performing | Address | City/State/Zipcode | Phone Number | | Organization | | | | + + + + + | [facility] | [address] | [place] [address] | [phone] | + + + + + Iron [...] Testing | 20 - 50 % | [facility] | | | Saturation | performed at [facility], [address] | | LABORATORY | | | | [address], | | | | | | [place] [address] | | | | + + + + + + + + | Specimen | + + | Blood | + + + + + + + | Performing | Address | City/State/Zipcode | Phone Number | | Organization | | | | + + + + + | [facility] | [address] | [place] [address] | [phone] | + + + + + POC [...] | | | POC | performed at [facility];[address] | | LABORATORY | | | | [address];[place], [place] | | | | | | [address] | | | | + + + + + + + + | Specimen | + + | | + + + + + + + | Performing | Address | City/State/Zipcode | Phone Number | | Organization | | | | + + + + + | [facility] | [address] | [place] [address] | [phone] | + + + + + POC [...] | | | POC | performed at [facility];[address] | | LABORATORY | | | | [address];[place] | | | | | | [address] | | | | + + + + + + + + | Specimen | + + | | + + + + + + + | Performing | Address | City/State/Zipcode | Phone Number | | Organization | | | | + + + + + | [facility] | [address] | [place] [address] | [phone] | + + + + + US [...] | kidney. Signed by: Jerson Guadarrama, Eamon Sign Date/Time: | | | 01/05/2020 6:44 AM [...] + + | Juan, Rad Results In 01/05/2020 6:48 AM PST | | ULTRASOUND [...] Testing | 1.7 - 2.4 mg/dL | [facility] | | | | performed at [facility], [address] | LABORATORY | | | | [address], | | | | | | [place] [address] | | | | + + + + + + + + | Specimen | + + | Blood | + + + + + + + | Performing | Address | City/State/Zipcode | Phone Number | | Organization | | | | + + + + + | [facility] | [address] | [place] [address] | [phone] | + + + + + Comprehensive [...] | | | | | | MDRD [facility] traceable | | | | | | equation.Testing | | | | | | performed at [facility];[address] | | | | | | [facility];[place], [place] | | | | | | [address] | | | | + + + + + + + + | Specimen | + + | Blood | + + + + + + + | Performing | Address | City/State/Zipcode | Phone Number | | Organization | | | | + + + + + | [facility] | [address] | [place] [address] | [phone] | + + + + + CBC [...] g/dL | LABORATORY | | | | L/RN/8RP,0705,[id number],LP | | | | | |EMORY L/RN/8RP,0705,[id number],LP | | | | | | | | | | + + + + + + | Hematocrit | 20.5 (LL)Comment: RESULT | 39.0 - 50.0 % | [facility] | | | | READ BACK BY:CARLOS MANUEL | | LABORATORY | | | | L/RN/8RP,0705,[id number],LP | | | | | |CARLOS MANUEL L/RN/8RP,0705,[id number],LP | | | | | | | [...] | | | Absolute | performed at [facility], [address] | K/uL | LABORATORY | | | | [address], | | | | | | [place] [address] | | | | + + + + + + + + | Specimen | + + | Blood | + + + + + + + | Performing | Address | City/State/Zipcode | Phone Number | | Organization | | | | + + + + + | [facility] | [address] | [place] [address] | [phone] | + + + + + POC Glucose (01/05/2020 3:43 AM PST) + + + + + + | Component | Value | Ref Range | Performed | Pathologist | | | | | At | Signature | + + + + + + | Glucose, | 157 (H)Comment: Testing | 65 - 99 mg/dL | [facility] | | | POC | performed at [facility];[address] | | LABORATORY | | | | [address];[place] | | | | | | [address] | | | | + + + + + + + + | Specimen | + + | | + + + + + + + | Performing | Address | City/State/Zipcode | Phone Number | | Organization | | | | + + + + + | [facility] | [address] | [place] [address] | [phone] | + + + + + Creatinine, Urine, Random (01/05/2020 1:21 AM PST) + + + + + + | Component | Value | Ref Range | Performed | Pathologist | | | | | At | Signature | + + + + + + | Creatinine, | 78.7Comment: NO NORMAL | mg/dL | [facility] | | | random | RANGE ESTABLISHEDTesting | | LABORATORY | | | urine | performed at [facility], [address] | | | | | [address], | | | | | | [place] [address] | | | | + + + + + + + + | Specimen | + + | | + + + + + + + | Performing | Address | City/State/Zipcode | Phone Number | | Organization | | | | + + + + + | [facility] | [address] | [place] [address] | [phone] | + + + + + Sodium, Urine, Random (01/05/2020 1:21 AM PST) + + + + + + | Component | Value | Ref Range | Performed | Pathologist | | | | | At | Signature | + + + + + + | Sodium, | 54Comment: NO NORMAL | mmol/L | [facility] | | | Random | [facility] ESTABLISHEDTesting | | LABORATORY | | | urine | performed at [facility], [address] | | | | | | [address] [facility], | | | | | | [place] [address] | | | | + + + + + + + + | Specimen | + + | Urine - Urine | | specimen (specimen) | + + + + + + + | Performing | Address | City/State/Zipcode | Phone Number | | Organization | | | | + + + + + | [facility] | [address] | [place] [address] | [phone] | + + + + + Protein/Creatinine Ratio, Urine (01/05/2020 1:21 AM PST) + + + + + + | Component | Value | Ref Range | Performed | Pathologist | | | | | At | Signature | + + + + + + | PRO/CREA | 3.736Comment: Testing | | [facility] | | | RATIO,URINE | performed at [facility], [address] | | LABORATORY | | | | [address], | | | | | | [place] [address] | | | | + + + + + + + + | Specimen | + + | Urine - Urine | | specimen (specimen) | + + + + + + + | Performing | Address | City/State/Zipcode | Phone Number | | Organization | | | | + + + + + | [facility] | [address] | [place] [address] | [phone] | + + + + + Protein, Urine, Random (01/05/2020 1:21 AM PST) + + + + + + | Component | Value | Ref Range | Performed | Pathologist | | | | | At | Signature | + + + + + + | Protein, | 294Comment: NO NORMAL | mg/dL | [facility] | | | Urine | RANGE ESTABLISHEDTesting | | LABORATORY | | | | performed at [facility], [address] | | [address] | | [address], | | | | | | [place] [address] | | | | + + + + + + + + | Specimen | + + | Urine - Urine | | specimen (specimen) | + + + + + + + | Performing | Address | City/State/Zipcode | Phone Number | | Organization | | | | + + + + + | [facility] | [address] | [place] [address] | [phone] | + + + + + Potassium, Urine, Random (01/05/2020 1:21 AM PST) + + + + + + | Component | Value | Ref Range | Performed | Pathologist | | | | | At | Signature | + + + + + + | Potassium, | 21Comment: NO NORMAL | mmol/L | [facility] | | | Urine | [facility] ESTABLISHEDTesting | | LABORATORY | | | | performed at [facility], [address] | | [address] | | [address], | | | | | | [place] [address] | | | | + + + + + + + + | Specimen | + + | Urine - Urine | | specimen (specimen) | + + + + + + + | Performing | Address | City/State/Zipcode | Phone Number | | Organization | | | | + + + + + | [facility] | [address] | [place] [address] | [phone] | + + + + + Urinalysis [...] - 1.030 | [facility] | | | [place], | | | LABORATORY | | | [...] | | | | | Urine | Blvd;[place] [address] | | | | + + + + + + + + | Specimen | + + | Urine - Urine | | specimen (specimen) | + + + + + + + | Performing | Address | City/State/Zipcode | Phone Number | | Organization | | | | + + + + + | [facility] | [address] | [place] [address] | [phone] | + + + + + Eosinophil Smear, Urine (01/05/2020 1:20 AM PST) + + + + + + | Component | Value | Ref Range | Performed | Pathologist | | | | | At | Signature | + + + + + + | Eosinophils | RARE EOSINOPHIL SEEN ON | <1 % | [facility] | | | | SCAN BUT NOT INCLUDED IN | | LABORATORY | | | | THE 100 WBC | | | | | | DIFFERENTIAL. (<1% | | | | | | EOSINOPHILS)Comment: | | | | | | Testing performed at | | | | | | [facility], [address] | | | | | | [address], [place], [place] | | | | | | [address] | | | | + + + + + + + + | Specimen | + + | Urine - Urine | | specimen (specimen) | + + + + + + + | Performing | Address | City/State/Zipcode | Phone Number | | Organization | | | | + + + + + | [facility] | [address] | [place] [address] | [phone] | + + + + + Basic [...] | | | | | performed at [facility];[address] | | | | | | [address];[place] | | | | | | [address] | | | | + + + + + + + + | Specimen | + + | Blood | + + + + + + + | Performing | Address | City/State/Zipcode | Phone Number | | Organization | | | | + + + + + | [facility] | [address] | [place] [address] | [phone] | + + + + + ECG [...] | | | | | ONLY, -COMPUTER (503), | | | | | | brands editor Gideon Montano | | | | [...] Testing | 55 - 400 U/L | RAYMUNDO | | | | performed at [facility];[address] | | LABORATORY | | | | [address];[place], [place] | | | | | | [address] | | | | + + + + + + + + | Specimen | + + | | + + + + + + + | Performing | Address | City/State/Zipcode | Phone Number | | Organization | | | | + + + + + | [facility] | [address] | [place] [address] | [phone] | + + + + + Comprehensive [...] | | | | | performed at [facility] | | | | | | [facility];[place], [place] | | | | | | [address] | | | | + + + + + + + + | Specimen | + + | Blood | + + + + + + + | Performing | Address | City/State/Zipcode | Phone Number | | Organization | | | | + + + + + | [facility] | [address] | [place] [address] | [phone] | + + + + + CBC [...] | | | Absolute | performed at [facility];[address] | K/uL | LABORATORY | | | | [facility];[place] | | | | | | [address] | | | | + + + + + + + + | Specimen | + + | Blood | + + + + + + + | Performing | Address | City/State/Zipcode | Phone Number | | Organization | | | | + + + + + | [facility] | [address] | [place] [address] | [phone] | + + + + + documented [...] 10:41 | | | | | on Wed01/05/20 at 0900 | | AM PST | [...] | +---+---+ + +-------+ +--------+---+---+ | bupivacaine (MARCAINE) 0.5% 30 | Given | 01/05/20 | 15 mLs | | | | mL with lidocaine 1% 20 mL | | 20 4:20 | | | | | Optesia Mixture PRN, Starting | | PM PST | | | | | Tahira 01/05/20 at 1555, Intra-op | | | | | | + +-------+ +--------+---+---+ +-------+ +---+---+---+ | Given | 01/05/20 | | | | | | 20 3:55 | | | | | | PM PST | | | | +-------+ +---+---+---+ +---+---+ | | | +---+---+ + +-------+ [...] CONTINUOUS PRN, hypoglycemia, | | | Starting Wed01/05/20 at 0008, | | | Start infusion [...] | heparin 5,000 units/mL | Given | 01/05/20 | 5,000 | | Arm-Left | | injection PRN, Starting Wed 3:54 | Units | | Lower | | 01/05/20 at 1554, Intra-op | | PM PST | | | | + +-------+ +--------+---+ + +---+---+ | | | [...] | | | | AC, NPO, Daytime 4987-9225 Use | | | | | | | NIGHT DOSE for doses scheduled: | | | | | | | HS, 3AM, Nighttime 9256-2105 | | | | | | | [...] PST | | | | | Starting Wed01/05/20 at 1651, | | | | | [...] +--------+---+---+ | thrombin (recombinant) | Given | 01/05/20 | 5,000 | | | | (RECOTHROM) solution PRN, | | 20 3:55 | Units | | | | Starting 01/05/20 at 1555, | | PM PST | | | [...]
--- OUTSIDE RECORDS SUMMARY | ~2020-08-10 | XMS | Encounter Summary ---
Demographics + + + | Address | [address] | | | [place] [address] | + + + | Home Phone [...] Author + + + | Author | [facility] | | | and [place] | + + + | Organization | [facility] | | [...] Team Providers + +------+ + | Care Chronic Manager Name | Role | Phone | + +------+ + | Yrn Buckley MD | PCP | | + +------+ + Reason for Visit +--------+ + | Reason | Comments | +--------+ + | Other | chart note sent to [facility] 01/01 confirmation recieved | +--------+ + Encounter Details +--------+ + + + + | Date | Type | Department | Care Team | Description | +--------+ + + + + | 01/09/ | Documentati | [facility] | [place], | Other (chart note | | 2020 | on | NEPHROLOGY [place] | Rayne Humphrey | sent to [facility] | | | | [address] | Trekking Guide | 01/01 confirmation | | | | [address] [place], [place] | | recieved) | | | | [address] | | | | | | [phone] | | | +--------+ + + + [...] | | | | | | [place] [address] | | | | | | [phone] | | | | | | | [...]
--- OUTSIDE RECORDS SUMMARY | ~2020-08-10 | XMS | Encounter Summary ---
Demographics + + + | Address | [address] | | | [place] [address] | + + + | Home Phone [...] Team Providers + +------+ + | Care Cleaning Custodian Name | Role | Phone | + [...] | | | stage 5, GFR | [address] | | | | | | less than | Phone: | | | | | | 15 ml/min | [phone] | | | | | | (HCC) | Fax: | | | | | | Procedures | [phone] | | | | | | VAS [...] + | 12/29/ | Orders Only | [facility] | Breezy, Si, DNP | CKD (chronic kidney | | 2020 | | VASCULAR SURGERY | [address] | disease) stage 5, | | | | [address] [place] | [address] [place], [place] | GFR less than 15 | | | | [place], [place] | [address] | ml/min (HCC) | | | | [address] | | (Primary Dx) | | | | [phone] | | | +--------+ + + + [...] | | | | | | [place] [address] | | | | | | [phone] | | | | | | | [...]
--- OUTSIDE RECORDS SUMMARY | ~2020-08-10 | XMS | Encounter Summary ---
Demographics + + + | Address | [address] | | | [place] [address] | + + + | Home Phone | | + + + | Preferred Language | Unknown | + + + | Marital Status | Single | + + + | Orthodox Affiliation | 1041 | + + + | Race | White | + + + | Ethnic Group | Not or | + + + Author + + + | Author | [facility] | | | and [place] | + + + | Organization | [facility] | | | [...] Team Providers + +------+ + | Care Wool Handler Name | Role | Phone | + +------+ + | Yrn Buckley MD | PCP | | + +------+ + Reason for Visit +---------+ + | Reason | Comments | +---------+ + | Consult | PD cath placement | +---------+ + Evaluate & Treat (Emergency) +--------+ + + + + + | Status | Reason | Specialty | Diagnoses / | Referred By | Referred To | | | | | Procedures | Contact | Contact | +--------+ + + + + + | Closed | Specialty | Vascular | Diagnoses | [facility] | | Services | Surgery | Essential | Eros Simon MD | Surgery | | | Required | | hypertension | [address] | [address] | | | | | CKD | [address] | | | | | (chronic | [place], | [place], [place] | | | | | kidney | [place] [address] | [address] | | | | | disease) | Phone: | Phone: | | | | | stage 5, GFR | [phone] | [phone] | | | | | less than | Fax: | Fax: | | | | | 15 ml/min | [phone] | [phone] | | | | | (HCC) | | | | | | | Nephrotic | | | | | | | range | | | | | | | proteinuria | | | +--------+ + + + + + Encounter Details +--------+---------+ + + + | Date | Type | Department | Care Team | Description | +--------+---------+ + + + | 12/21/ | Office | [facility] | Elpidio Gunter MD | CKD (chronic kidney | | 2020 | Visit | VASCULAR SURGERY | [address] | disease) stage 5, | | | | [address] [place] | [address] [place], [place] | GFR less than 15 | | | | [place], [place] | [address] | ml/min (HCC) | | | | [address] | [phone] | (Primary Dx) | | | | [phone] | | | +--------+---------+ + + + [...] +---------+ + + | Blood Pressure | 168/96 | 12/21/2019 2:45 PM | | | | | PST | | + +---------+ + + | Pulse | 70 | 12/21/2019 2:45 PM | | | | | PST | | + +---------+ + + | Temperature | - | - | | + +---------+ + + | Respiratory Rate | - | - | | + +---------+ + + | Oxygen Saturation | 99% | 12/21/2019 2:45 PM | | | | | PST | | + +---------+ + + | [...] + documented in this encounter Progress Notes Elpidio Gunter MD - 12/21/2019 3:30 PM PST Subjective Subjective Mr. Henley is a pleasant [...] kidney disease) stage 4, GFR 15-29 ml/min ([facility]) Convulsive disorder (HCC) DM (diabetes mellitus), type [...] CV: No peripheral edema, rate regular SKIN: [place], warm, dry without rash/lesion MS: ROM not [...] Attending Note: Documentation assistance provided by Fernanda Galeana and [place] Greenfield (Scribe) . Information recorded by the scribe has been reviewed and validated by me. I agree with its contents. Signed by: Fernanda Galeana and [place] Greenfield, Scribe 12/21/19, 2:52 PM Elpidio Gunter MD documented in this enc ounter Plan of [...] | | | | | | [place] [address] | | | | | | [phone] | | | | | | | | +--------+---------+ + + + documented as of this encounter Visit Diagnoses + + | Diagnosis | + + | CKD (chronic kidney disease) stage 5, GFR less than 15 ml/min (HCC) - Primary Chronic | | kidney disease, Stage V | + + documented in this encounter"
--- OUTSIDE RECORDS SUMMARY | ~2020-08-10 | XMS | Encounter Summary ---
Demographics + + + | Address | [address] | | | [place] [address] | + + + | Home Phone [...] + + + | Author | [facility] | | | and [place] | + + + | Organization | [facility] | | | [...] Team Providers + +------+ + | Care Functional Support Analyst Name | Role | Phone | + +------+ + | Yrn Buckley MD | PCP | | + +------+ + Encounter Details +--------+ + + + + | Date | Type | Department | Care Team | Description | +--------+ + + + + | 10/09/ | Orders Only | [facility] | Eros Rothman MD | CKD (chronic kidney | | 2019 | | NEPHROLOGY [place] | [address] [place] | disease) stage 5, | | | | [address] | [address] [place], [place] | GFR less than 15 | | | | [address] | [address] | ml/min (HCC) | | | | [place], [place] | | (Primary Dx); | | | | [address] | | Nephrotic range | | | | [phone] | | proteinuria; Anemia | | | [...] | | | | | | [place] [address] | | | | | | [phone] | | | | | | | [...]
--- OUTSIDE RECORDS SUMMARY | ~2020-08-10 | XMS | Encounter Summary ---
Demographics + + + | Address | [address] | | | [place] [address] | + + + | Home Phone | | + + + | Preferred Language | Unknown | + + + | Marital Status | Single | + + + | Sabianist Affiliation | 1041 | + + + [...] Team Providers + +------+ + | Care Distribution Field Technician Name | Role | Phone | + +------+ + PCP | Unavailable | + +------+ + Encounter Details +--------+ + + + + | Date | Type | Department | Care Team | Description | +--------+ + + + + | 04/05/ | Orders Only | [facility] | Conversion | | | 2019 | | NEPHROLOGY [place] | Transaction, | | | | | [address] | Provider Unknown | | | | | [address] [place], [place] | | | | | | [address] | (Fax) | | | | | [phone] | | | +--------+ + + + [...] | | | | | | [place] [address] | | | | | | [phone] | | | | | | | [...] - 1.030 | EXTERNAL | | | [place], | | | LAB | | | [...] | | | LAB | | | [place] Citizen | | | | | + + [...]
--- OUTSIDE RECORDS SUMMARY | ~2020-08-10 | XMS | Encounter Summary ---
Demographics + + + | Address | [address] | | | [place] [address] | + + + | Home Phone | | + + + | Preferred Language | Unknown | + + + | Marital Status | Single | + + + | Buddhist Affiliation | 1041 | + + + [...] Team Providers + +------+ + | Care Package Dyeing Machine Operator Name | Role | Phone | + +------+ + | Yrn Buckley MD | PCP | | + +------+ + Encounter Details +--------+ + + + + | Date | Type | Department | Care Team | Description | +--------+ + + + + | 01/01/ | Orders Only | [facility] | Eros Rothman MD | Essential | | 2020 | | NEPHROLOGY [place] | [address] [place] | hypertension | | | | [address] [place] | [address] [place], [place] | (Primary Dx); CKD | | | | [address] [place], [place] | [address] | (chronic kidney | | | | [address] | | disease) stage 5, | | | | [phone] | | GFR less than 15 | [...] [place], | | | | | | [place] [address] | | | | | | [phone] | | | | | | | [...] | | | | | | ml/min ([facility]) | | | | | [...]
--- OUTSIDE RECORDS SUMMARY | ~2020-08-10 | XMS | Encounter Summary ---
Demographics + + + | Address | [address] | | | [place] [address] | + + + | Home Phone [...] Team Providers + +------+ + | Care Special Events Assistant Name | Role | Phone | [...] + + | 03/19/ | Telephone | [facility] | Elpidio Gunter MD | Pre-Op | | 2020 | | CENTER CV INTRA OP | [address] | | | | | [address] | [address] | | | | | [place], [place] | [address] | | | | | [address] | [phone] | | | | | [phone] | | | +--------+ + + + [...] but does not have a name. company [employer] has many contracts. will not know till [...] | | | | | | [place] [address] | | | | | | [phone] | | | | | | | [...]
--- OUTSIDE RECORDS SUMMARY | ~2020-08-10 | XMS | Encounter Summary ---
Demographics + + + | Address | [address] | | | [place] [address] | + + + | Home Phone [...] Team Providers + +------+ + | Care Generation Engineering Technologist Name | Role | Phone | + +------+ + | Yrn Buckley MD | PCP | | + +------+ + Encounter Details +--------+ + + + + | Date | Type | Department | Care Team | Description | +--------+ + + + + | 01/03/ | Prep for | [facility] | Cirilo Tijerina DNP | | | 2019 | Procedure | VASCULAR SURGERY | [address] | | | | | [address] [place] | [address] [address] [place], [place] | | | | | [place], [place] | [address] | | | | | [address] | | | | | | [phone] | | | +--------+ + + + [...] [place] | | | | | | [place] [address] | | | | | | [phone] | | | | | | | | +--------+---------+ + + + documented as of this encounter Visit Diagnoses Not on filedocumented in this encounter"
--- OUTSIDE RECORDS SUMMARY | ~2020-08-10 | XMS | Encounter Summary ---
Demographics + + + | Address | [address] | | | [place] [address] | + + + | Home Phone | | + + + | Preferred Language | Unknown | + + + | Marital Status | Single | + + + | Mormonism Affiliation | 1041 | + + + [...] Team Providers + +------+ + | Care Cigar Packer And Grader Name | Role | Phone | + +------+ + | Yrn Buckley MD | PCP | | + +------+ + Encounter Details +--------+ + + + + | Date | Type | Department | Care Team | Description | +--------+ + + + + | 12/19/ | Orders Only | [facility] | RipEros adams MD | Essential | | 2020 | | NEPHROLOGY [place] | [address] [place] | hypertension | | | | [address] [place] | [address] [place], [place] | (Primary Dx); CKD | | | | [address] [place], [place] | [address] | (chronic kidney | | | | [address] | | disease) stage 5, | | | | [phone] | | GFR less than 15 | [...] | | | | | | [place] [address] | | | | | | [phone] | | | | | | | [...] | | | | ml/min ([facility]) | | + +------+--------+ + + [...] | | | | ml/min ([facility]) | | + +------+--------+ + + [...]
--- OUTSIDE RECORDS SUMMARY | ~2020-08-10 | XMS | Encounter Summary ---
Demographics + + + | Address | [address] | | | [place] [address] | + + + | Home Phone | | + + + | Preferred Language | Unknown | + + + | Marital Status | Single | + + + | Moravian Affiliation | 1041 | + + + [...] Team Providers + +------+ + | Care Teleservices Representative Name | Role | Phone | [...] + + | 12/27/ | Documentati | [facility] | Garcia, | Other (IV ferpriscaeme | | 2020 | on | NEPHROLOGY [place] | Rayne Humphrey | order sent to | | | | [address] | Workshop Manager | Carlos GARVEY | | | | [address] [facility] [place] | | confirmation | | | | [address] | | received. 12/26) | | | | [phone] | | | +--------+ + + + [...] | | | | | | [place] [address] | | | | | | [phone] | | | | | | | | +--------+---------+ + + + documented as of this encounter Visit Diagnoses Not on filedocumented in this encounter"
--- OUTSIDE RECORDS SUMMARY | ~2020-08-10 | XMS | Encounter Summary ---
Demographics + + + | Address | [address] | | | [place] [address] | + + + | Home Phone [...] | + + +---------+ + | Kadie Mnacilla | ECON | Unknown | | + + +---------+ + Care Team Providers + +------+ + | Care Line Rider Name | Role | Phone | + [...] + + | 12/13/ | Documentati | [facility] | Garcia, | Other (US order sent | | 2020 | on | NEPHROLOGY [place] | Rayne Humphrey | to [facility] | | | | [address] | Computer Applications Engineer | radiology 11/29/19 | | | | [address] [place] | | confirmation | | | | [address] | | received. ) | | | | [phone] | | | +--------+ + + + [...] | | | | | | [place] [address] | | | | | | [phone] | | | | | | | | +--------+---------+ + + + documented as of this encounter Visit Diagnoses Not on filedocumented in this encounter"
--- OUTSIDE RECORDS SUMMARY | ~2020-08-10 | XMS | Encounter Summary ---
Demographics + + + | Address | [address] | | | [place] [address] | + + + | Home Phone [...] Team Providers + +------+ + | Care Sports Intern Name | Role | Phone | + +------+ + | Yrn Buckley MD | PCP | | + +------+ + Encounter Details +--------+---------+ + + + | Date | Type | Department | Care Team | Description | +--------+---------+ + + + | 12/18/ | Office | [facility] | Eros Rothman MD | CKD (chronic kidney | | 2020 | Visit | NEPHROLOGY [place] | [address] [place] | disease) stage 5, | | | | [address] | [address] [place], [place] | GFR less than 15 | | | | [address] [place] [address] | [address] | ml/min (HCC) | | | | [place], [place] | | (Primary Dx); | | | | [address] | | Essential | | | | [phone] | | hypertension; Anemia | | | [...] Instructions Patient Instructions Eros Rothman MD - 12/18/2019 4:20 PM PSTDiscussions/Recommendations : [...] regularly. I will see him at the [facility] on a monthly basis. 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 I will see him at the [facility] on a monthly basis. Thank you Dr Buckley for the opportunity to see this patient in F/U on an urgent basis todixon yousif. Please do not hesitate to call me at any time with questions or concerns. Truly yours, Eros Rothman MD [facility] CLA[facility] VIVIAN documented in this enco unter [...] | | | | | | [place] [address] | | | | | | [phone] | | | | | | | [...]
--- OUTSIDE RECORDS SUMMARY | ~2020-08-10 | XMS | Encounter Summary ---
Demographics + + + | Address | [address] | | | [place] [address] | + + + | Home Phone | | + + + | Preferred Language | Unknown | + + + | Marital Status | Single | + + + | Rastafarian Affiliation | [id number] | + + + [...] Team Providers + +------+ + | Care Cutting Torch Operator Name | Role | Phone | [...] + + | 12/18/ | Telephone | [facility] | Luca Mo MD | Referral | | 2020 | | VASCULAR SURGERY | [address] | | | | | [address] [place] | [place], [place] | | | | | [place], [place] | [address] | | | | | [address] | | | | | | [phone] | | | +--------+ + + + [...] if you have an ything on Wednesday? [phone]. Ramona stated if there is nothing on [...] Referral. Allegra nuno can be reached at [phone] If this is a symptom based call, was patient offered triage? Not Applicable If this is a symptom based call and you were unable to immediately transfer the call to a mikel varela regional office coordinator was caller made aware that if [...] | | | | | | [place] [address] | | | | | | [phone] | | | | | | | | +--------+---------+ + + + documented as of this encounter Visit Diagnoses Not on filedocumented in this encounter"
--- OUTSIDE RECORDS SUMMARY | ~2020-08-10 | XMS | Encounter Summary ---
Demographics + + + | Address | [address] | | | [place] [address] | + + + | Home Phone [...] Team Providers + +------+ + | Care Athlete Manager Name | Role | Phone | [...] DR | | | | | | ([facility]) AVF | [place] | | | | | | (arterioveno | [place], [place] | | | | | | us fistula) | [address] | | | | | | ([facility]) | Phone: | | | | | | Procedures | [phone] | | | | | | IR Inj | Fax: | | | | | | Dialysis | [phone] | | | | | | Circuit [...] DR | | | | | | ([facility]) AVF | [place] | | | | | | ([facility] | [place], [place] | | | | | | us fistula) | [address] | | | | | | ([facility]) | Phone: | | | | | | Procedures | [phone] | | | | | | IR Inj | Fax: | | | | | | Dialysis | [phone] | | | | | | Circuit | | | +--------+--------+ + + + + Encounter Details +--------+ + + + + | Date | Type | Department | Care Team | Description | +--------+ + + + + | 03/20/ | Hospital | [facility] | Cirilo Tijerina, PER | ESRD on dialysis | | 2020 | Encounter | CENTER IR INTRA OP | [address] | ([facility]); AVF | | | | [address] | [place], [place] | (arteriovenous | | | | [place], [place] | [address] | fistula) ([facility]) | | | | [address] | | | | | | [phone] | Elpidio Gunter MD | | | | | | [address] | | | | | | [place], [place] | | | | | | [address] | | | | | | [phone] | | | | | | | [...] Discharge Instructions Instructions Kierra Snow RN - 03/20/2020[facility] AV DIALYSIS SHUNT/FISTULA/FISTULAGRAM DIS CHARGE INSTRUCTIONS [...] to be picked up. 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 No had no iv or sedation. Kierra Jenkins RN - 03/20/2020 12:00 PM PDTAttempts made x 2 for I V start. Patient hollering in pain. Per carpenter/labor RN, no IV or labs needed. Patient off to slab lifting engineer. Kierra Snow RN 03/20/2020 11:45 AM documented in this en counter H&P Notes Kadie Sargent PA-C - 03/20/2020 12:00 PM PDTFormatting of this note might be different fr om the original. Incomplete []Hide copied text []Ford for details [facility] PREOPERATIVE HISTORY AND PHYSICAL PRIMARY CARE [...] good thrills over the AVF site. Patient's traffic personnel supervisor is Dr. Rothman. The patient is a right handed person. The patient is receiving hemodialysis on Wednesday, and Wednesdayvia right upper chest tunneled catheter at [facility]. Past Medical History: Diagnosis Date CKD (chronic kidney disease) stage 4, GFR 15-29 ml/min (HCC) Convulsive disorder (HCC) DM (diabetes mellitus), type 1, uncontrolled (HCC) HTN (hypertension) Proteinuria Past Surgical History: Procedure Laterality Date APPENDECTOMY AV FISTULA INSERTION Left 01/05/2020 Procedure: INSERTION AV FISTULA; Surgeon: Elpidio Gunter MD; Location: [facility] MAIN OR OTHER SURGICAL HISTORY Left 2017 [...] Gunter MD - 03/20/2020 12:00 PM PDT [facility]: Vascular Surgery Brief Op Note Pre-operative Diagnosis: ESRD and difficulty cannulating left brachiocephalic fistula Post-operative Diagnosis: same Procedure(s): Left arm fistulagram Surgeon: Elpidio Gunter MD Motor Carrier Inspector(s): None Anesthesia: Local anesthesia Estimated Blood Loss: [...] | | | | | | [place] [address] | | | | | | [phone] | | | | | | | [...] Testing | 65 - 99 mg/dL | [facility] | | | POC | performed at [facility];[address] | | LABORATORY | | | | [address];[place] | | | | | | [address] | | | | + + + + + + + + | Specimen | + + | | + + + + + + + | Performing | Address | City/State/Zipcode | Phone Number | | Organization | | | | + + + + + | [facility] | [address] | [place] [address] | [phone] | + + + + + IR [...] + + | ESRD on dialysis ([facility]) End stage renal disease | + + | AVF (arteriovenous fistula) ([facility]) Arteriovenous fistula, acquired | + [...]
[~2020-08-10 10:49] MED LIST changes: +ATORVASTATIN CA20 MG PO; +CLEOCIN HCL300 MG PO; +GABAPENTIN100 MG PO; +INDAPAMIDE1.25 MG PO
--- OUTSIDE RECORDS SUMMARY | 2020-08-10 10:52 | XMS ---
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 Care History Medical/Surgical 11/14/2019 [facility] Patient stated he will make sure repeat labs are done for Dr. Fish per ED discharge instructions and will schedule follow up appointments with him and Dr. Yañez. 10/19/2018 [facility] - Patient is currently established with [facility]. If patient is seen in the ED during business hours. Please contact [facility] at [facility]. Care Recommendation: If this patient has [...] care. E.D. VISIT COUNT (12 MO.) 1 [facility] 4 [facility] TOTAL 5 NOTE: Visits indicate total known visits. ED/UCC VISIT TRACKING (12 MO.) 08/10/2020 10:51 [facility] TYPE: Emergency COMPLAINT: - HEAD SORES 08/09/2020 15:34 [facility] [place] TYPE: Emergency COMPLAINT: - WOUND CHECK 07/31/2020 21:09 [facility] TYPE: Emergency COMPLAINT: - RT HIP PAIN/ NO INJ DIAGNOSES: - Personal history of nicotine dependence - Other custodial (current) drug therapy - Type 2 diabetes mellitus without complications - Pain in right ankle and joints of right foot - Pain in left ankle and joints of left foot - Localized edema - Other chronic pain - Essential (primary) hypertension - [employer] (current) use of insulin 01/04/2020 18:46 [facility] TYPE: Emergency DIAGNOSES: - Acute kidney failure, unspecified - Abnormal Lab 11/13/2019 17:58 [facility] TYPE: Emergency COMPLAINT: - KIDNEY PROBLEM DIAGNOSES: - [employer] (current) use of insulin - Personal history of nicotine dependence - Other custodial (current) drug therapy - Type 2 diabetes mellitus with diabetic chronic kidney disease - Chronic kidney disease, unspecified - Nausea with vomiting, unspecified - Hypertensive chronic kidney disease with stage 1 through stag INPATIENT VISIT TRACKING (12 MO.) 01/04/2020 18:46 [facility] TYPE: Internal Medicine DIAGNOSES: - End stage renal disease - Other specified diabetes mellitus with diabetic neuropathy, u - Other specified personal risk factors, not elsewhere classifi - Acute kidney failure, unspecified - History of falling - Type 2 diabetes mellitus with diabetic nephropathy - [employer] (current) use of insulin - Unspecified kidney failure - Other disorders of plasma-protein metabolism, not elsewhere c - 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
[2020-08-10] MEDS ORDERED: CALCIUM ACETAT667 M1 NG (10:58)
[2020-08-10] MEDS ORDERED: NORCO 5-325 TA1 EACH PO (11:38)
== END 2020-08-10 11:46 | disposition home or self-care (01) ==
LOC: ED 10:49
DX: L02.811 Cutaneous abscess of head [any part, except face] (principal); E11.9 Type 2 diabetes mellitus without complications; I10 Essential (primary) hypertension; Z79.899 Other long term (current) drug therapy; Z79.4 Long term (current) use of insulin
CPT/HCPCS: 10160; 99283-25

== ENCOUNTER 2021-01-08 20:07 | Emergency (ER) | payer OTHER ==
[~2021-01-08] VITALS: Ht 182.9 cm; Wt 108.9 kg
[~2021-01-08 20:07] MED LIST changes: +CALCIUM ACETAT667 M1 NG
--- OUTSIDE RECORDS SUMMARY | 2021-01-08 20:10 | XMS ---
PreManage Notification: CELY PALMER Security Tube Operator Events No recent Security Events currently on file CRITERIA MET - Group Notification - [facility] - Has Care Guidelines CARE PROVIDERS HIRA YAÑEZLM Internal Medicine 10/19/2018-Current PHONE: Unknown Esperanza has no Care Guidelines for this patient. Care History Medical/Surgical 08/12/2020 [facility] Patient seen multiple times for head sores.\T\nbsp; Has not seen PCP Dr. Yañez since 05/24/2020.\T\nbsp; Left voice mail on home phone - sister Ramona, emergency contact. 08/16/2020 - Patient has follow up visit with PCP Dr. Yañez on 09/27/2020 at 10:30 am. 11/14/2019 [facility] Patient stated he will make sure repeat labs are done for Dr. Fish per ED discharge instructions and will schedule follow up appointments with him and Dr. Yañez. 10/19/2018 [facility] - Patient is currently established with [facility]. If patient is seen in the ED during business hours. Please contact CHWs at [facility]. Care Recommendation: If this patient has had 5 or more Emergency Department visits in the last 12 months.\T\nbsp; Patient will require education on the scope and purpose of the ED as an acute care provider not a Primary Care Provider and should not be utilized for chronic conditions.\T\nbsp; These are guidelines and the provider should exercise clinical judgment when providing care. Chantal VISIT COUNT (12 MO.) 4 BOB Pr[place] TOTAL 4 NOTE: Visits indicate total known visits. ED/UCC VISIT TRACKING (12 MO.) 01/08/2021 20:07 [facility] [place] TYPE: Emergency COMPLAINT: - VOMITING, CHEST PAIN 08/10/2020 10:51 [facility] [place] TYPE: Emergency COMPLAINT: - HEAD SORES DIAGNOSES: - Type 2 diabetes mellitus without complications - Cutaneous abscess of head [any part, except face] - Essential (primary) hypertension - correction (current) use of insulin - Other vermin exterminator (current) drug therapy 08/09/2020 15:34 [facility] [place] TYPE: Emergency COMPLAINT: - WOUND CHECK DIAGNOSES: - Other vermin exterminator (current) drug therapy - Type 2 diabetes mellitus without complications - Personal history of nicotine dependence - Cutaneous abscess of abdominal wall - vermin exterminator (current) use of insulin - Essential (primary) hypertension - Cutaneous abscess of head [any part, except face] 07/31/2020 21:09 [facility] [place] TYPE: Emergency COMPLAINT: - RT HIP PAIN/ NO INJ DIAGNOSES: - Personal history of nicotine dependence - Other vermin exterminator (current) drug therapy - Type 2 diabetes mellitus without complications - Pain in right ankle and joints of right foot - Pain in left ankle and joints of left foot - Localized edema - Other chronic pain - Essential (primary) hypertension - vermin exterminator (current) use of insulin INPATIENT VISIT TRACKING (12 MO.) No inpatient visits to display in this time frame [email or web address]
--- NOTE | 2021-01-09 19:12 | EKG ---
[facility] [address] [place], [place] [address] Signed Sinus tachycardia Septal infarct , age undetermined Abnormal ECG No previous ECGs available Confirmed by ASHLY BONILLA MD ([id number]) on 01/09/2021 7:12:24 PM Electronically Signed By: ASHLY BONILLA MD 01/09/211911 PATIENT NAME: CELY PALMER Electrocardiogram DATE OF : 68 PHYSICIAN: ASHLY BONILLA MD REPORT #: [id number] REPORT IS CONFIDENTIAL AND NOT TO BE RELEASED WITHOUT AUTHORIZATION
--- NOTE | 2021-01-09 19:13 | EKG ---
[facility] [address] [facility] [place], [place] [address] Signed Normal sinus rhythm Septal infarct (cited on or before 08-JAN-2021) Abnormal ECG When compared with ECG of 08-JAN-2021 20:15, (Unconfirmed) No significant change was found Confirmed by ASHLY BONILLA MD ([id number]) on 01/09/2021 7:13:21 PM Electronically Signed By: ASHLY BONILLA MD 01/09/21 191 PATIENT NAME: CELY PALMER Electrocardiogram DATE OF : [birth year] PHYSICIAN: ASHLY BONILLA MD REPORT #: [id number] REPORT IS CONFIDENTIAL AND NOT TO BE RELEASED WITHOUT AUTHORIZATION
== END 2021-01-09 12:28 | disposition short-term general hospital (02) ==
LOC: ED 20:07
DX: I21.4 Non-ST elevation (NSTEMI) myocardial infarction (principal); Z99.2 Dependence on renal dialysis; Z20.822 Contact with and (suspected) exposure to COVID-19; I10 Essential (primary) hypertension; E11.9 Type 2 diabetes mellitus without complications; Z79.899 Other long term (current) drug therapy
CPT/HCPCS: 71045; 80053; 83690; 84484; 85025; 85610; 85730; 93005; 93010; 96374; 96375; 99285-25; C9803; J1650; J2270; J2405; J2550; J2765; U0003

== ENCOUNTER 2021-04-15 15:00 | Emergency (ER) | payer OTHER ==
[~2021-04-15] VITALS: Ht 182.9 cm; Wt 98.0 kg
--- OUTSIDE RECORDS SUMMARY | 2021-04-15 15:02 | XMS ---
PreManage Notification: CELY PALMER Security Fire Regulator Events No recent Security Events currently on file CRITERIA MET - Group Notification - [facility] - Has Care Guidelines CARE PROVIDERS HIRA YAÑEZLM Internal Medicine 01/10/2021-Current PHONE: Unknown Esperanza has no Care Guidelines [...] Center - Patient is currently established with [facility]. If patient is seen in the ED during business hours. Please contact CHWs at [facility]. Care Recommendation: If this patient has [...] providing care. Chantal VISIT COUNT (12 MO.) 5 BOB Prado TOTAL 5 NOTE: Visits indicate total known visits. ED/UCC VISIT TRACKING (12 MO.) 04/15/2021 15:00 [facility] [place] TYPE: Emergency COMPLAINT: - LOWER BACK PAIN 01/08/2021 20:07 [facility] [place] TYPE: Emergency COMPLAINT: - VOMITING, CHEST PAIN DIAGNOSES: - Other group home (current) drug therapy - Essential (primary) hypertension - Type 2 diabetes mellitus without complications - Non-ST elevation (NSTEMI) myocardial infarction - Other chest pain - Dependence on renal dialysis 08/10/2020 10:51 [facility] [place] TYPE: Emergency COMPLAINT: - HEAD SORES DIAGNOSES: - Type 2 diabetes mellitus without complications - Cutaneous abscess of head [any part, except face] - Essential (primary) hypertension - senior living (current) use of insulin - Other termination clerk (current) drug therapy 08/09/2020 15:34 [facility] [place] TYPE: Emergency COMPLAINT: - WOUND CHECK DIAGNOSES: - Other termination clerk (current) drug therapy - Type 2 diabetes mellitus without complications - Personal history of nicotine dependence - Cutaneous abscess of abdominal wall - senior living (current) use of insulin - Essential (primary) hypertension - Cutaneous abscess of head [any part, except face] 07/31/2020 21:09 BOB [place] TYPE: Emergency COMPLAINT: - RT HIP PAIN/ NO INJ DIAGNOSES: - Personal history of nicotine dependence - Other termination clerk (current) drug therapy - Type 2 diabetes mellitus without complications - Pain in right ankle and joints of right foot - Pain in left ankle and joints of left foot - Localized edema - Other chronic pain - Essential (primary) hypertension - termination clerk (current) use of insulin INPATIENT VISIT TRACKING (12 MO.) 01/09/2021 13:57 Arlette [place] TYPE: Medical Surgical COMPLAINT: - NONSTEMI DIAGNOSES: 0. Chest pain, unspecified 1. Fluid overload, unspecified 2. End stage renal disease 3. Hypertensive chronic kidney disease with stage 5 chronic kidney disease or end stage renal disease 4. Underdosing of electrolytic, caloric and water-balance agents, initial encounter 5. Acidosis 6. Type 2 diabetes mellitus with diabetic chronic kidney disease 7. Hyperkalemia 8. Anemia in chronic kidney disease 9. Renal osteodystrophy 10. Other chronic pain 11. Dorsalgia, unspecified 12. termination clerk (current) use of insulin 13. Dependence on renal dialysis 14. Other termination clerk (current) drug therapy 15. Personal history of nicotine dependence [email or web address]
[2021-04-15] MEDS ORDERED: VALIUM10 MG PO (20:42)
== END 2021-04-15 21:17 | disposition home or self-care (01) ==
LOC: ED 15:00
DX: M54.5 Low back pain (principal); E11.9 Type 2 diabetes mellitus without complications; I10 Essential (primary) hypertension; Z87.891 Personal history of nicotine dependence; Z79.899 Other long term (current) drug therapy; Z79.4 Long term (current) use of insulin
CPT/HCPCS: 72131; 99283-25

== ENCOUNTER 2021-06-07 14:25 | Emergency (ER) | payer OTHER ==
[~2021-06-07] VITALS: Ht 182.9 cm; Wt 98.0 kg
[~2021-06-07 14:25] MED LIST changes: +VALIUM10 MG PO
--- OUTSIDE RECORDS SUMMARY | 2021-06-07 14:28 | XMS ---
PreManage Notification: CELY PALMER Security Head Custodian Events No recent Security Events currently on file CRITERIA MET - PDMP - - Has Care Guidelines - Group Notification CARE PROVIDERS PARI [place] Internal Medicine 01/10/2021-Current PHONE: Unknown Esperanza has no Care Guidelines for this patient. Care History Medical/Surgical 08/12/2020 [facility] Patient seen multiple times for head sores.\T\nbsp; Has not seen PCP Dr. Buckley since 05/24/2020.\T\nbsp; Left voice mail on home phone - sister Ramona, emergency contact. 08/16/2020 - Patient has follow up visit with PCP Dr. Buckley on 09/27/2020 at 10:30 am. 11/14/2019 [facility] Patient stated he will make sure repeat labs are done for Dr. Fish per ED discharge instructions and will schedule follow up appointments with him and Dr. Buckley. 10/19/2018 [facility] - Patient is currently established with [facility]. If patient is seen in the ED during business hours. Please contact CHWs at [facility]. Care Recommendation: If this patient has had [...] providing care. Chantal VISIT COUNT (12 MO.) 6 BOB Prado TOTAL 6 NOTE: Visits indicate total known visits. ED/UCC VISIT TRACKING (12 MO.) 06/07/2021 14:25 [facility] [place] TYPE: Emergency COMPLAINT: - RIGHT FOOT INJ 04/15/2021 15:00 [facility] [place] TYPE: Emergency COMPLAINT: - LOWER BACK PAIN DIAGNOSES: - Essential (primary) hypertension - Personal history of nicotine dependence - Other intermediate project manager (current) drug therapy - Type 2 diabetes mellitus without complications - [facility] (current) use of insulin - Low back pain 01/08/2021 20:07 [facility] [place] TYPE: Emergency COMPLAINT: - VOMITING, CHEST PAIN DIAGNOSES: - Other intermediate project manager (current) drug therapy - Essential (primary) hypertension - Type 2 diabetes mellitus without complications - Non-ST elevation (NSTEMI) myocardial infarction - Other chest pain - Dependence on renal dialysis 08/10/2020 10:51 [facility] [place] TYPE: Emergency COMPLAINT: - HEAD SORES DIAGNOSES: - Type 2 diabetes mellitus without complications - Cutaneous abscess of head [any part, except face] - Essential (primary) hypertension - [facility] (current) use of insulin - Other jail (current) drug therapy 08/09/2020 15:34 [facility] [place] TYPE: Emergency COMPLAINT: - WOUND CHECK DIAGNOSES: - Other intermediate project manager (current) drug therapy - Type 2 diabetes mellitus without complications - Personal history of nicotine dependence - Cutaneous abscess of abdominal wall - [facility] (current) use of insulin - Essential (primary) hypertension - Cutaneous abscess of head [any part, except face] 07/31/2020 21:09 B[facility] [place] TYPE: Emergency COMPLAINT: - RT HIP PAIN/ NO INJ DIAGNOSES: - Personal history of nicotine dependence - Other intermediate project manager (current) drug therapy - Type 2 diabetes mellitus without complications - Pain in right ankle and joints of right foot - Pain in left ankle and joints of left foot - Localized edema - Other chronic pain - Essential (primary) hypertension - [facility] (current) use of insulin INPATIENT VISIT TRACKING (12 MO.) 01/09/2021 13:57 Ar[facility] [place] TYPE: Medical Surgical COMPLAINT: - NONSTEMI DIAGNOSES: [...] Other chronic pain 11. Dorsalgia, unspecified 12. intermediate project manager (current) use of insulin 13. Dependence on renal dialysis 14. Other jail (current) drug therapy 15. Personal history of nicotine dependence [email or web address]
--- NOTE | 2021-06-07 19:21 | EKG ---
[facility] [address] [facility] [place] [address] Signed Normal sinus rhythm Septal infarct (cited on or before 08-JAN-2021) Abnormal ECG When compared with ECG of 09-JAN-2021 09:15, Questionable change in initial forces of Septal leads Confirmed by ASHLY BONILLA MD ([id number]) on 06/07/2021 7:21:44 PM Electronically Signed By: ASHLY BONILLA MD 06/07/211920 PATIENT NAME: CELY PALMER Electrocardiogram DATE OF : 68 PHYSICIAN: ASHLY BONILLA MD REPORT #: [id number] REPORT IS CONFIDENTIAL AND NOT TO BE RELEASED WITHOUT AUTHORIZATION
== END 2021-06-07 19:07 | disposition short-term general hospital (02) ==
LOC: ED 14:25
DX: S91.201A Unspecified open wound of right great toe with damage to nail, initial encounter (principal); E87.5 Hyperkalemia; Z99.2 Dependence on renal dialysis; X58.XXXA Exposure to other specified factors, initial encounter; E11.9 Type 2 diabetes mellitus without complications; I10 Essential (primary) hypertension; Z20.822 Contact with and (suspected) exposure to COVID-19; Z87.891 Personal history of nicotine dependence; Z79.899 Other long term (current) drug therapy; Z79.4 Long term (current) use of insulin
CPT/HCPCS: 11730; 73660; 80053; 83735; 84132; 85025; 93005; 93010; 99284-25; J0360; J1815; J2060; U0003

== ENCOUNTER 2021-06-24 08:15 | Emergency (ER) | payer OTHER ==
[~2021-06-24] VITALS: Ht 182.9 cm; Wt 102.5 kg
--- OUTSIDE RECORDS SUMMARY | 2021-06-24 08:18 | XMS ---
PreManage Notification: CELY PALMER Security Cheese Sprayer Events 1 event(s) in the past 18 months Most recent security events: Elopement at [facility] 06/12/2021 16:21 - Other Details: PATIENT LWBS. CRITERIA MET - Group Notification - PDMP - [facility] - Has Care Guidelines - [facility] - 2 Visits in 30 Days CARE PROVIDERS PARI SHARPL[place] Internal Medicine 01/10/2021-Current PHONE: Unknown Esperanza has no Care Guidelines for this patient. Care History Medical/Surgical 08/12/2020 [facility] Patient seen multiple times for head sores.\T\nbsp; Has not seen PCP Dr. Buckley since 05/24/2020.\T\nbsp; Left voice mail on home phone - sister Ramona, emergency contact. 08/16/2020 - Patient has follow up visit with PCP Dr. Buckley on 09/27/2020 at 10:30 am. 11/14/2019 [facility] Patient stated he will make sure repeat labs are done for Dr. Fish per ED discharge instructions and will schedule follow up appointments with him and Dr. Buckley. 10/19/2018 [facility] - Patient is currently established with [facility]. If patient is seen in the ED during business hours. Please contact CHWs at [facility]. Care Recommendation: If this patient has had 5 or more Emergency Department visits in the last 12 months.\T\nbsp; Patient will require education on the scope and purpose of the ED as an acute care provider not a Primary Care Provider and should not be utilized for chronic conditions.\T\nbsp; These are guidelines and the provider should exercise clinical judgment when providing care. ERyanD. VISIT COUNT (12 MO.) 8 BOB Prado TOTAL 8 NOTE: Visits indicate total known visits. ED/UCC VISIT TRACKING (12 MO.) 06/24/2021 08:16 [facility] [place] TYPE: Emergency COMPLAINT: - VOMITING, DIARRHEA 06/12/2021 16:21 [facility] [place] TYPE: Emergency COMPLAINT: - BACK OF L LEG PAIN 06/07/2021 14:25 [facility] [place] TYPE: Emergency COMPLAINT: - RIGHT FOOT INJ DIAGNOSES: - Hyperkalemia - Personal history of nicotine dependence - Dependence on renal dialysis - Unspecified open wound of right great toe with damage to nail, initial encounter - Other fci (current) drug therapy - Essential (primary) hypertension - group home (current) use of insulin - Type 2 diabetes mellitus without complications - Exposure to other specified factors, initial encounter 04/15/2021 15:00 [facility] [place] TYPE: Emergency COMPLAINT: - LOWER BACK PAIN DIAGNOSES: - Essential (primary) hypertension - Personal history of nicotine dependence - Other fci (current) drug therapy - Type 2 diabetes mellitus without complications - group home (current) use of insulin - Low back pain 01/08/2021 20:07 [facility] [place] TYPE: Emergency COMPLAINT: - VOMITING, CHEST PAIN DIAGNOSES: - Other fci (current) drug therapy - Essential (primary) hypertension - Type 2 diabetes mellitus without complications - Non-ST elevation (NSTEMI) myocardial infarction - Other chest pain - Dependence on renal dialysis 08/10/2020 10:51 [facility] [place] TYPE: Emergency COMPLAINT: - HEAD SORES DIAGNOSES: - Type 2 diabetes mellitus without complications - Cutaneous abscess of head [any part, except face] - Essential (primary) hypertension - lobsterman (current) use of insulin - Other fci (current) drug therapy 08/09/2020 15:34 [facility] [place] TYPE: Emergency COMPLAINT: - WOUND CHECK DIAGNOSES: - Other termite helper (current) drug therapy - Type 2 diabetes mellitus without complications - Personal history of nicotine dependence - Cutaneous abscess of abdominal wall - group home (current) use of insulin - Essential (primary) hypertension - Cutaneous abscess of head [any part, except face] 07/31/2020 21:09 [facility] [place] TYPE: Emergency COMPLAINT: - RT HIP PAIN/ NO INJ DIAGNOSES: - Personal history of nicotine dependence - Other [facility] (current) drug therapy - Type 2 diabetes mellitus without complications - Pain in right ankle and joints of right foot - Pain in left ankle and joints of left foot - Localized edema - Other chronic pain - Essential (primary) hypertension - group home (current) use of insulin INPATIENT VISIT TRACKING [...] Other chronic pain 11. Dorsalgia, unspecified 12. group home (current) use of insulin 13. Dependence on renal dialysis 14. Other termite helper (current) drug therapy 15. Personal history of nicotine dependence [email or web address]
[2021-06-24] MEDS ORDERED: ONDANSETRON ODT4 MG PO (09:36)
== END 2021-06-24 09:49 | disposition home or self-care (01) ==
LOC: ED 08:15
DX: R19.7 Diarrhea, unspecified (principal); R11.10 Vomiting, unspecified; E11.9 Type 2 diabetes mellitus without complications; I10 Essential (primary) hypertension; Z87.891 Personal history of nicotine dependence; Z79.899 Other long term (current) drug therapy; Z79.4 Long term (current) use of insulin; Z20.822 Contact with and (suspected) exposure to COVID-19
CPT/HCPCS: 80048; 85025; 99284; C9803; U0003

== ENCOUNTER 2021-06-27 17:18 | Emergency (ER) | payer OTHER ==
[~2021-06-27] VITALS: Ht 182.9 cm; Wt 102.6 kg
[~2021-06-27 17:18] MED LIST changes: +ONDANSETRON ODT4 MG PO
--- OUTSIDE RECORDS SUMMARY | 2021-06-27 17:20 | XMS ---
PreManage Notification: CELY PALMER Security Lorry Weigher Events 1 event(s) in the past 18 months Most recent security events: Elopement at [facility] 06/12/2021 16:21 - Other Details: PATIENT LWBS. CRITERIA MET - Group Notification - 6 ED Visits in 6 Months - [facility] - 2 Visits in 30 Days - PDMP - [facility] - Has Care Guidelines CARE PROVIDERS HIRA YAÑEZLM Internal Medicine 01/10/2021-Current PHONE: Unknown Esperanza has no Care Guidelines for this patient. Care History Medical/Surgical 08/12/2020 [facility] Patient seen multiple times for head sores.\T\nbsp; Has not seen PCP Dr. Yañez since 05/24/2020.\T\nbsp; Left voice mail on home phone - sister Ramona, emergency contact. 08/16/2020 - Patient has follow up visit with PCP Dr. Yañez on 09/27/2020 at 10:30 am. 11/14/2019 [facility] Patient stated he will make sure repeat labs are done for Dr. Fish per ED discharge instructions and will schedule follow up appointments with him and Dr. Yañez. 10/19/2018 [facility] - Patient is currently established with [...] providing care. E.D. VISIT COUNT (12 MO.) 9 [facility] Pr[facility] TOTAL 9 NOTE: Visits indicate total known visits. ED/UCC VISIT TRACKING (12 MO.) 06/27/2021 17:19 [facility] [place] TYPE: Emergency COMPLAINT: - VOMITING 06/24/2021 08:16 [facility] [place] TYPE: Emergency COMPLAINT: - VOMITING, DIARRHEA DIAGNOSES: - Essential (primary) hypertension - half-way (current) use of insulin - Vomiting, unspecified - Diarrhea, unspecified - Type 2 diabetes mellitus without complications - Personal history of nicotine dependence - Other halfway (current) drug therapy 06/12/2021 16:21 [facility] [place] TYPE: Emergency COMPLAINT: - BACK OF L LEG PAIN 06/07/2021 14:25 [facility] [place] TYPE: Emergency COMPLAINT: - RIGHT FOOT INJ DIAGNOSES: - Hyperkalemia - Personal history of nicotine dependence - Dependence on renal dialysis - Unspecified open wound of right great toe with damage to nail, initial encounter - Other medical terminologist (current) drug therapy - Essential (primary) hypertension - terminal make up operator (current) use of insulin - Type 2 diabetes mellitus without complications - Exposure to other specified factors, initial encounter 04/15/2021 15:00 [facility] [place] TYPE: Emergency COMPLAINT: - LOWER BACK PAIN DIAGNOSES: - Essential (primary) hypertension - Personal history of nicotine dependence - Other medical terminologist (current) drug therapy - Type 2 diabetes mellitus without complications - terminal make up operator (current) use of insulin - Low back pain 01/08/2021 20:07 [facility] [place] TYPE: Emergency COMPLAINT: - VOMITING, CHEST PAIN DIAGNOSES: - Other medical terminologist (current) drug therapy - Essential (primary) hypertension - Type 2 diabetes mellitus without complications - Non-ST elevation (NSTEMI) myocardial infarction - Other chest pain - Dependence on renal dialysis 08/10/2020 10:51 [facility] [place] TYPE: Emergency COMPLAINT: - HEAD SORES DIAGNOSES: - Type 2 diabetes mellitus without complications - Cutaneous abscess of head [any part, except face] - Essential (primary) hypertension - terminal make up operator (current) use of insulin - Other halfway (current) drug therapy 08/09/2020 15:34 [facility] TYPE: Emergency COMPLAINT: - WOUND CHECK DIAGNOSES: - Other halfway (current) drug therapy - Type 2 diabetes mellitus without complications - Personal history of nicotine dependence - Cutaneous abscess of abdominal wall - terminal make up operator (current) use of insulin - Essential (primary) hypertension - Cutaneous abscess of head [any part, except face] 07/31/2020 21:09 [facility] TYPE: Emergency COMPLAINT: - RT HIP PAIN/ NO INJ DIAGNOSES: - Personal history of nicotine dependence - Other halfway (current) drug therapy - Type 2 diabetes mellitus without complications - Pain in right ankle and joints of right foot - Pain in left ankle and joints of left foot - Localized edema - Other chronic pain - Essential (primary) hypertension - half-way (current) use of insulin INPATIENT VISIT TRACKING [...] Other chronic pain 11. Dorsalgia, unspecified 12. terminal make up operator (current) use of insulin 13. Dependence on renal dialysis 14. Other medical terminologist (current) drug therapy 15. Personal history of nicotine dependence [email or web address]
--- NOTE | 2021-06-29 12:54 | EKG ---
[facility] [address] [place] [address] Signed Normal sinus rhythm Septal infarct (cited on or before 08-JAN-2021) Abnormal ECG When compared with ECG of 07-JUN-2021 15:45, No significant change was found Confirmed by JAY GRIDER MD ([id number]) on 06/29/2021 12:54:18 PM Electronically Signed By: JAY GRIDER MD 06/29/21 1254 PATIENT NAME: CELY PALMER Electrocardiogram DATE OF : 68 PHYSICIAN: JAY GRIDER MD REPORT #: [id number] REPORT IS CONFIDENTIAL AND NOT TO BE RELEASED WITHOUT AUTHORIZATION
--- NOTE | 2021-06-29 12:54 | EKG ---
[facility] [address] [place] [address] S[address] Sinus tachy[address] N[address] abnormality Abnormal ECG When compared with ECG of 27-JUN-2021 17:57, (Unconfirmed) ST now depressed in Anterior leads Confirmed by JAY GRIDER MD ([id number]) on 06/29/2021 12:54:32 PM Electronically Signed By: JAY GRIDER MD 06/29/21 1254 PATIENT NAME: SPENCERCELY KATERINE Electrocardiogram DATE OF : 68 PHYSICIAN: JAY GRIDER MD REPORT #: [id number] REPORT IS CONFIDENTIAL AND NOT TO BE RELEASED WITHOUT AUTHORIZATION
== END 2021-06-28 02:45 | disposition short-term general hospital (02) ==
LOC: ED 17:18
PROC: 0T9B70Z Drainage of Bladder with Drainage Device, Via Natural or Artificial Opening (ICD-10-PCS; principal; 2021-06-27)
DX: L03.115 Cellulitis of right lower limb (principal); E87.5 Hyperkalemia; I12.9 Hypertensive chronic kidney disease with stage 1 through stage 4 chronic kidney disease, or unspecified chronic kidney disease; E11.22 Type 2 diabetes mellitus with diabetic chronic kidney disease; N18.9 Chronic kidney disease, unspecified; R10.817 Generalized abdominal tenderness; Z20.822 Contact with and (suspected) exposure to COVID-19; Z87.891 Personal history of nicotine dependence; Z79.899 Other long term (current) drug therapy; Z79.4 Long term (current) use of insulin
CPT/HCPCS: 51701; 71045; 80053; 81001; 83605; 84132; 85025; 87040; 93005; 93010; 94644; 99285-25; C9803; J0610; J0692; J1815; J1940; J2405; U0003

== ENCOUNTER 2022-05-06 15:07 | Emergency (ER) | payer OTHER ==
[~2022-05-06] VITALS: Ht 182.9 cm; Wt 102.6 kg
--- OUTSIDE RECORDS SUMMARY | 2022-05-06 15:10 | XMS ---
PreManage Notification: CELY PALMER Security Lead Recreation Assistant Events 1 event(s) in the past 18 months Most recent security events: Elopement at [facility] 06/12/2021 16:21 - Other Details: PATIENT LWBS. CRITERIA MET - Group Notification CARE PROVIDERS Beni Chung Online Community Manager/Switchboard Inspector 04/08/2022-Current PHONE: [phone] MOLLY BUCKLEY Internal Medicine 01/10/2021-Current PHONE: Unknown Esperanza has no Care Guidelines for this patient. Care History Medical/Surgical 08/12/2020 [facility] Patient seen multiple times for head sores.\T\nbsp; Has not seen PCP Dr. Buckley since 05/24/2020.\T\nbsp; Left voice mail on home phone - sister Ramona, emergency contact. 08/16/2020 - Patient has follow up visit with PCP Dr. Buckley on 09/27/2020 at 10:30 am. 11/14/2019 [facility] Patient stated he will make sure repeat labs are done for Dr. Fish per ED discharge instructions and will schedule follow up appointments with him and Dr. Buckley. 10/19/2018 [facility] - Patient is currently established with [facility]. If patient is seen in the ED during business hours. Please contact CHWs at [facility]. Care Recommendation: If this patient [...] providing care. E.D. VISIT COUNT (12 MO.) 5 [facility]. TOTAL 5 NOTE: Visits indicate total known visits. ED/UCC VISIT TRACKING (12 MO.) 05/06/2022 15:08 [facility] [place] TYPE: Emergency COMPLAINT: - CHEST PAIN 06/27/2021 17:19 [facility] [place] TYPE: Emergency COMPLAINT: - VOMITING DIAGNOSES: - Hyperkalemia - halfway (current) use of insulin - Localized edema - Abnormal electrocardiogram [ECG] [EKG] - Personal history of nicotine dependence - Type 2 diabetes mellitus with diabetic chronic kidney disease - Cellulitis of right lower limb - Hypertensive chronic kidney disease with stage 1 through stage 4 chronic kidney disease, or unspecified chronic kidney disease - Tachycardia, unspecified - Chronic kidney disease, unspecified - Generalized abdominal tenderness - Nausea with vomiting, unspecified - Other retirement (current) drug therapy 06/24/2021 08:16 [facility] [place] TYPE: Emergency COMPLAINT: - VOMITING, DIARRHEA DIAGNOSES: - Essential (primary) hypertension - halfway (current) use of insulin - Vomiting, unspecified - Diarrhea, unspecified - Type 2 diabetes mellitus without complications - Personal history of nicotine dependence - Other long term acute care registered nurse (current) drug therapy 06/12/2021 16:21 [facility] [place] TYPE: Emergency COMPLAINT: - BACK OF L LEG PAIN 06/07/2021 14:25 [facility] [place] TYPE: Emergency COMPLAINT: - RIGHT FOOT INJ DIAGNOSES: - Hyperkalemia - Personal history of nicotine dependence - Dependence on renal dialysis - Unspecified open wound of right great toe with damage to nail, initial encounter - Other retirement (current) drug therapy - Essential (primary) hypertension - lobsterman (current) use of insulin - Type 2 diabetes mellitus without complications - Exposure to other specified factors, initial encounter INPATIENT VISIT TRACKING (12 MO.) 06/28/2021 04:33 [facility] [place] TYPE: Renal DIAGNOSES: - Tinea pedis - Type 2 diabetes mellitus with diabetic polyneuropathy - halfway (current) use of insulin - Unspecified abdominal pain - Essential (primary) hypertension - Cellulitis of right lower limb - Hyperkalemia - Chest pain, unspecified [email or web address]
--- NOTE | 2022-05-07 06:27 | EKG ---
[facility] [address] [facility] [facility] [place], [place] [address] Signed Sinus rhythm with 1st degree AV block Septal infarct , age undetermined Abnormal ECG No previous ECGs available Confirmed by ASHLY BONILLA MD ([id number]) on 05/07/2022 6:27:09 AM Electronically Signed By: ASHLY BONILLA MD 05/07/2227 PATIENT NAME: CELY PALMER Electrocardiogram DATE OF : [birth year] PHYSICIAN: ASHLY BONILLA MD REPORT #: [id number] REPORT IS CONFIDENTIAL AND NOT TO BE RELEASED WITHOUT AUTHORIZATION
== END 2022-05-07 02:02 | disposition short-term general hospital (02) ==
LOC: ED 15:07
DX: R55 Syncope and collapse (principal); E11.9 Type 2 diabetes mellitus without complications; I10 Essential (primary) hypertension; Z87.891 Personal history of nicotine dependence; Z79.899 Other long term (current) drug therapy; Z79.4 Long term (current) use of insulin; Z20.822 Contact with and (suspected) exposure to COVID-19
CPT/HCPCS: 36415; 70450; 71045; 71250; 74176; 80048; 80053; 81001; 83735; 84484; 85025; 85610; 85730; 87502; 93005; 93010; 96365; 96366; 96375; 99285-25; A9270; C9803; J2270; J2405; J3480; U0003

== ENCOUNTER 2022-06-11 09:05 | Emergency (ER) | payer OTHER ==
[~2022-06-11] VITALS: Ht 182.9 cm; Wt 102.6 kg
--- OUTSIDE RECORDS SUMMARY | 2022-06-11 09:08 | XMS ---
PreManage Notification: CELY PALMER Security Industrial Automation Specialist Events 1 event(s) in the past 18 months Most recent security events: Elopement at [facility] 06/12/2021 16:21 - Other Details: PATIENT LWBS. CRITERIA MET - Group Notification CARE PROVIDERS Beni Chung Transition Teacher/Rn Clinical Trials 04/08/2022-Current PHONE: [phone] MOLLY BUCKLEY Internal Medicine 01/10/2021-Current PHONE: Unknown Esperanza has no Care Guidelines for this patient. Care History Medical/Surgical 08/12/2020 [facility] Patient seen multiple times for head sores.\T\nbsp; Has not seen PCP Dr. Buckley since 05/24/2020.\T\nbsp; Left voice mail on home phone - sister Ramona, emergency contact. 08/16/2020 - Patient has follow up visit with PCP Dr. Buckley on 09/27/2020 at 10:30 am. 11/14/2019 [facility] Patient stated he will make sure repeat labs are done for Dr. Fish per ED discharge instructions and will schedule follow up appointments with him and Dr. Buckley. 10/19/2018 [facility] - Patient is currently established with [facility]. If patient is seen in the ED during business hours. Please contact CHWs at [facility]. Care Recommendation: If this patient has had [...] care. E.D. VISIT COUNT (12 MO.) 5 [facility]. TOTAL 5 NOTE: Visits indicate total known visits. ED/UCC VISIT TRACKING (12 MO.) 06/11/2022 09:06 [facility] [place] TYPE: Emergency COMPLAINT: - FALL, R LEG PAIN 05/06/2022 15:08 [facility] [place] TYPE: Emergency COMPLAINT: - CHEST PAIN DIAGNOSES: - Personal history of nicotine dependence - Type 2 diabetes mellitus without complications - Other intermediate (current) drug therapy - predatory animal exterminator (current) use of insulin - Chest pain, unspecified - Contact with and (suspected) exposure to COVID-19 - Essential (primary) hypertension - Syncope and collapse 06/27/2021 17:19 [facility] [place] TYPE: Emergency [...] - Nausea with vomiting, unspecified - Other intermediate (current) drug therapy 06/24/2021 08:16 [facility] [place] TYPE: Emergency COMPLAINT: - VOMITING, DIARRHEA DIAGNOSES: - Essential (primary) hypertension - predatory animal exterminator (current) use of insulin - Vomiting, unspecified - Diarrhea, unspecified - Type 2 diabetes mellitus without complications - Personal history of nicotine dependence - Other intermediate (current) drug therapy 06/12/2021 16:21 [facility] TYPE: Emergency COMPLAINT: - BACK OF L LEG PAIN INPATIENT VISIT TRACKING (12 MO.) 05/07/2022 04:38 [facility] TYPE: General Medicine DIAGNOSES: - Cardiac arrest, cause unspecified - Cardiac Arrest 06/28/2021 04:33 [facility] [place] TYPE: Renal DIAGNOSES: - Tinea pedis - Type 2 diabetes mellitus with diabetic polyneuropathy - halfway (current) use of insulin - Unspecified abdominal pain - Essential (primary) hypertension - Cellulitis of right lower limb - Hyperkalemia - Chest pain, unspecified [email or web address]
[2022-06-11] MEDS ORDERED: HYDROCODON-ACE1 EA10 PO (13:23)
== END 2022-06-11 16:03 | disposition home or self-care (01) ==
LOC: ED 09:05
DX: S42.331A Displaced oblique fracture of shaft of humerus, right arm, initial encounter for closed fracture (principal); W19.XXXA Unspecified fall, initial encounter; E11.9 Type 2 diabetes mellitus without complications; I10 Essential (primary) hypertension; Z87.891 Personal history of nicotine dependence; Z79.899 Other long term (current) drug therapy; Z79.4 Long term (current) use of insulin
CPT/HCPCS: 29105; 36415; 73060; 80048; 85025; 85610; 99284-25; J1170

== ENCOUNTER 2022-10-05 14:42 | Emergency (ER) | payer OTHER ==
[~2022-10-05] VITALS: Ht 182.9 cm; Wt 101.0 kg
[~2022-10-05 14:42] MED LIST changes: +DILAUDID2 MG PO; +HYDROCODON-ACE1 EA10 PO
--- OUTSIDE RECORDS SUMMARY | 2022-10-05 14:44 | XMS ---
PreManage Notification: CELY PALMER Security Chief Green Officer Events 1 event(s) in the past 18 months Most recent security events: Elopement at [facility] 06/12/2021 16:21 - Other Details: PATIENT LWBS. CRITERIA MET - Group Notification - PDMP CARE PROVIDERS Beni Chung Dowel Pin Man/Cps Team Lead 08/08/2022-Current PHONE: [phone] MOLLY BUCKLEY Internal Medicine 01/10/2021-Current PHONE: Unknown Esperanza has no Care Guidelines for this patient. Care History Medical/Surgical 08/12/2020 [facility] Patient seen multiple times for head sores.\T\nbsp; Has not seen PCP Dr. Buckley since 05/24/2020.\T\nbsp; Left voice mail on home phone - sister Ramona, emergency contact. 08/16/2020 - Patient has follow up visit with PCP Dr. Buckley on 09/27/2020 at 10:30 am. 11/14/2019 [facility] Patient stated he will make sure repeat labs are done for Dr. Fish per ED discharge instructions and will schedule follow up appointments with him and Dr. Buckley. 10/19/2018 [facility] - Patient is currently established with [facility]. If patient is seen in the ED during business hours. Please contact CHWs at [facility]. Care Recommendation: If this patient [...] providing care. E.D. VISIT COUNT (12 MO.) 4 [facility] TOTAL 4 NOTE: Visits indicate total known visits. ED/UCC VISIT TRACKING (12 MO.) 10/05/2022 14:43 [facility] [place] TYPE: Emergency COMPLAINT: - CHEST PAIN 06/15/2022 09:04 [facility] [place] TYPE: Emergency COMPLAINT: - ELBOW PAIN DIAGNOSES: - Personal history of nicotine dependence - Essential (primary) hypertension - Type 2 diabetes mellitus without complications - Unspecified fall, initial encounter - Displaced oblique fracture of shaft of humerus, right arm, initial encounter for closed fracture - [facility] (current) use of insulin - Dependence on renal dialysis - Pain in right arm - Other adjunct faculty for medical terminology (current) drug therapy 06/11/2022 09:06 [facility] [place] TYPE: Emergency COMPLAINT: - FALL, R LEG PAIN DIAGNOSES: - Other alf (current) drug therapy - termite control technician (current) use of insulin - Displaced oblique fracture of shaft of humerus, right arm, initial encounter for closed fracture - Unspecified fall, initial encounter - Personal history of nicotine dependence - Type 2 diabetes mellitus without complications - Essential (primary) hypertension - Pain in right upper arm 05/06/2022 15:08 [facility] [place] TYPE: Emergency COMPLAINT: - CHEST PAIN DIAGNOSES: - Essential (primary) hypertension - Chest pain, unspecified - Other adjunct faculty for medical terminology (current) drug therapy - Personal history of nicotine dependence - Syncope and collapse - Contact with and (suspected) exposure to COVID-19 - termite control technician (current) use of insulin - Type 2 diabetes mellitus without complications INPATIENT VISIT TRACKING (12 MO.) 05/07/2022 04:38 [facility] TYPE: General Medicine DIAGNOSES: - Cardiac arrest, cause unspecified - Cardiac Arrest [email or web address]
[2022-10-05] MEDS ORDERED: TORSEMIDE100 MG PO (14:57)
[2022-10-05] MEDS ORDERED: ELIQUIS5 MG PO (14:58)
--- NOTE | 2022-10-05 19:42 | EKG ---
[facility] [address] [place] [address] Signed Sinus rhythm with premature supraventricular complexes Anteroseptal infarct (cited on or before 06-MAY-2022) Abnormal ECG When compared with ECG of 06-MAY-2022 15:07, premature supraventricular complexes are now present NH interval has decreased Questionable change in initial forces of Anteroseptal leads Confirmed by ASHLY BONILLA MD ([id number]) on 10/05/2022 7:42:43 PM Electronically Signed By: ASHLY BONILLA MD 10/05/221941 PATIENT NAME: CELY PALMER Electrocardiogram DATE OF : 68 PHYSICIAN: ASHLY BONILLA MD REPORT #: [id number] REPORT IS CONFIDENTIAL AND NOT TO BE RELEASED WITHOUT AUTHORIZATION
== END 2022-10-05 17:51 | disposition home or self-care (01) ==
LOC: ED 14:42
DX: J06.9 Acute upper respiratory infection, unspecified (principal); I12.9 Hypertensive chronic kidney disease with stage 1 through stage 4 chronic kidney disease, or unspecified chronic kidney disease; E11.22 Type 2 diabetes mellitus with diabetic chronic kidney disease; N18.9 Chronic kidney disease, unspecified; Z20.822 Contact with and (suspected) exposure to COVID-19; Z99.2 Dependence on renal dialysis; Z87.891 Personal history of nicotine dependence; Z79.899 Other long term (current) drug therapy; Z79.4 Long term (current) use of insulin
CPT/HCPCS: 36415; 71045; 80053; 85025; 87493; 87502; 93005; 93010; 99284-25; C9803; U0003

== ENCOUNTER 2022-12-29 19:55 | Emergency (ER) | payer OTHER ==
[~2022-12-29] VITALS: Ht 182.9 cm; Wt 101.0 kg
[~2022-12-29 19:55] MED LIST changes: +ELIQUIS5 MG PO; +TORSEMIDE100 MG PO
--- OUTSIDE RECORDS SUMMARY | 2022-12-29 19:57 | XMS ---
PreManage Notification: CELY PALMER Security Ribbon Hand Events No recent Security Events currently on file CRITERIA MET - PDMP - Group Notification CARE PROVIDERS -, [place]- Dentist: Beveller Operator [facility] PHONE: [phone] Beni Chung Cat Driver/Nursing Consultant 10/08/2022-Current PHONE: [phone] MOLLY BUCKLEY Internal Medicine 01/10/2021-Current PHONE: Unknown Esperanza has no Care Guidelines for this patient. Care History Medical/Surgical 08/12/2020 [facility] Patient seen multiple times for head sores.\T\nbsp; Has not seen PCP Dr. Buckley since 05/24/2020.\T\nbsp; Left voice mail on home phone - sister Ramona, emergency contact. 08/16/2020 - Patient has follow up visit with PCP Dr. Buckley on 09/27/2020 at 10:30 am. 11/14/2019 [facility] Patient stated he will make sure repeat labs are done for Dr. Fish per ED discharge instructions and will schedule follow up appointments with him and Dr. Buckley. 10/19/2018 [facility] - Patient is currently established with [facility]. If patient is seen in the ED during business hours. Please contact CHWs at [facility]. Care Recommendation: If this [...] care. E.D. VISIT COUNT (12 MO.) 1 [facility] 5 [facility]. TOTAL 6 NOTE: Visits indicate total known visits. ED/UCC VISIT TRACKING (12 MO.) 12/29/2022 19:55 [facility] [place] TYPE: Emergency COMPLAINT: - TAILBONE PAIN [facility]22 [facility] DIAGNOSES: - Emesis - Vomiting, unspecified - Other chest pain - chest pain - Unspecified kidney failure 10/05/2022 14:43 [facility] [place] TYPE: Emergency COMPLAINT: - CHEST PAIN DIAGNOSES: - alf (current) use of insulin - Hypertensive chronic kidney disease with stage 1 through stage 4 chronic kidney disease, or unspecified chronic kidney disease - Acute upper respiratory infection, unspecified - Chronic kidney disease, unspecified - Type 2 diabetes mellitus with diabetic chronic kidney disease - Other termite control technician (current) drug therapy - Dependence on renal dialysis - Cough, unspecified - Contact with and (suspected) exposure to COVID-19 - Personal history of nicotine dependence 06/15/2022 09:04 [facility] [place] TYPE: Emergency COMPLAINT: - ELBOW PAIN DIAGNOSES: - Personal history of nicotine dependence - Essential (primary) hypertension - Type 2 diabetes mellitus without complications - Unspecified fall, initial encounter - Displaced oblique fracture of shaft of humerus, right arm, initial encounter for closed fracture - terminal carman (current) use of insulin - Dependence on renal dialysis - Pain in right arm - Other termite control technician (current) drug therapy 06/11/2022 09:06 [facility] [place] TYPE: Emergency COMPLAINT: - FALL, R LEG PAIN DIAGNOSES: - Other care home (current) drug therapy - terminal carman (current) use of insulin - Displaced oblique [...] hypertension - Chest pain, unspecified - Other termite control technician (current) drug therapy - Personal history of nicotine dependence - Syncope and collapse - Contact with and (suspected) exposure to COVID-19 - alf (current) use of insulin - Type 2 diabetes mellitus without complications INPATIENT VISIT TRACKING (12 MO.) 05/07/2022 04:38 [facility] TYPE: General Medicine DIAGNOSES: - Cardiac arrest, cause unspecified - Cardiac Arrest [email or web address]
[2022-12-29] MEDS ORDERED: HYDROCODON-ACE1 EA10 PO (22:09)
== END 2022-12-29 22:36 | disposition home or self-care (01) ==
LOC: ED 19:55
DX: S30.0XXA Contusion of lower back and pelvis, initial encounter (principal); W18.30XA Fall on same level, unspecified, initial encounter; E11.9 Type 2 diabetes mellitus without complications; I10 Essential (primary) hypertension; Z87.891 Personal history of nicotine dependence; Z79.899 Other long term (current) drug therapy; Z79.4 Long term (current) use of insulin
CPT/HCPCS: 72220; 99283-25; A9270

== ENCOUNTER 2023-01-06 21:40 | Emergency (ER) | payer OTHER ==
[~2023-01-06] VITALS: Ht 182.9 cm; Wt 102.0 kg
--- NOTE | ~2023-01-06 | EKG ---
[facility] [address] [facility] [place], [place] [address] Draft EK completed, results pending confirmation PATIENT NAME: CELY PALMER Electrocardiogram DATE OF : 68 PHYSICIAN: PRELIMINARY REPORT #: [id number] REPORT IS CONFIDENTIAL AND NOT TO BE RELEASED WITHOUT AUTHORIZATION
--- OUTSIDE RECORDS SUMMARY | 2023-01-06 21:42 | XMS ---
PreManage Notification: CELY PALMER Security Kiln Hand Events No recent Security Events currently on file CRITERIA MET - [facility] - 2 Visits in 30 Days - Group Notification - PDMP CARE PROVIDERS -[place]- Dentist: Power Superintendent [facility] PHONE: [phone] Beni Chung Hand Folder/Bench Assembler Operator 10/08/2022-Current PHONE: [phone] MOLLY BUCKLEY Internal Medicine 01/10/2021-Current PHONE: Unknown Esperanza has no Care Guidelines for this patient. Care History Medical/Surgical 08/12/2020 [facility] Patient seen multiple times for head sores.\T\nbsp; Has not seen PCP Dr. Buckley since 05/24/2020.\T\nbsp; Left voice mail on home phone - sister Ramona, emergency contact. 08/16/2020 - Patient has follow up visit with PCP Dr. Buckley on 09/27/2020 at 10:30 am. 11/14/2019 [facility] Patient stated he will make sure repeat labs are done for Dr. Fish per ED discharge instructions and will schedule follow up appointments with him and Dr. Buckley. 10/19/2018 [facility] - Patient is currently established with [facility]. If patient is seen in the ED during business hours. Please contact CHWs at [facility]. Care Recommendation: If this patient has had [...] care. [facility].D. V[facility] (12 MO.) [facility] TOTAL 7 NOTE: Visits indicate total known visits. ED/UCC VISIT TRACKING (12 MO.) 01/06/2023 21:40 [facility] TYPE: Emergency COMPLAINT: - VOMITING,FEVER 12/29/2022 19:55 [facility] TYPE: Emergency COMPLAINT: - FALL DIAGNOSES: - Fall on same level, unspecified, initial encounter - ocean transportation intermediary (current) use of insulin - Other extermination inspector (current) drug therapy - Essential (primary) hypertension - Contusion of lower back and pelvis, initial encounter - Personal history of nicotine dependence - Type 2 diabetes mellitus without complications 10/07/2022 13:00 [facility] [place] TYPE: Emergency DIAGNOSES: - Emesis - Vomiting, unspecified - Other chest pain - chest pain - Unspecified kidney failure 10/05/2022 14:43 [facility] [place] TYPE: Emergency COMPLAINT: - CHEST PAIN DIAGNOSES: - ocean transportation intermediary (current) use of insulin - Hypertensive chronic kidney disease with stage 1 through stage 4 chronic kidney disease, or unspecified chronic kidney disease - Acute upper respiratory infection, unspecified - Chronic kidney disease, unspecified - Type 2 diabetes mellitus with diabetic chronic kidney disease - Other longterm (current) drug therapy - Dependence on renal [...] arm, initial encounter for closed fracture - care home (current) use of insulin - Dependence on renal dialysis - Pain in right arm - Other extermination inspector (current) drug therapy 06/11/2022 09:06 [facility] [place] TYPE: Emergency COMPLAINT: - FALL, R LEG PAIN DIAGNOSES: - Other longterm (current) drug therapy - care home (current) use of insulin - Displaced oblique [...] hypertension - Chest pain, unspecified - Other extermination inspector (current) drug therapy - Personal history of nicotine dependence - Syncope and collapse - Contact with and (suspected) exposure to COVID-19 - care home (current) use of insulin - Type 2 diabetes mellitus without complications INPATIENT VISIT TRACKING (12 MO.) 05/07/2022 04:38 [facility] TYPE: General Medicine DIAGNOSES: - Cardiac arrest, cause unspecified - Cardiac Arrest [email or web address]
[2023-01-07] MEDS ORDERED: CEPHALEXIN500 M1 PO (01:14)
[2023-01-07] MEDS ORDERED: ONDANSETRON ODT8 MG PO (01:14)
== END 2023-01-07 01:56 | disposition home or self-care (01) ==
LOC: ED 21:40
DX: R50.9 Fever, unspecified (principal); E87.5 Hyperkalemia; E11.9 Type 2 diabetes mellitus without complications; I10 Essential (primary) hypertension; Z87.891 Personal history of nicotine dependence; Z79.899 Other long term (current) drug therapy; Z79.4 Long term (current) use of insulin
CPT/HCPCS: 36415; 51798; 71045; 80048; 80053; 81001; 83605; 85025; 87502; 93005; 93010; 96365; 96375; 99284-25; A9270; C9803; J0696; J2405; U0003

== ENCOUNTER 2023-07-19 10:39 | Emergency (ER) | payer OTHER ==
[~2023-07-19] VITALS: Ht 182.9 cm; Wt 99.0 kg
[~2023-07-19 10:39] MED LIST changes: +CEPHALEXIN500 M1 PO; +ONDANSETRON ODT8 MG PO
--- OUTSIDE RECORDS SUMMARY | 2023-07-19 10:42 | XMS ---
PreManage Notification: CELY PALMER Security Nuclear Power Reactor Operator Events No recent Security Events currently on file CRITERIA MET - Group Notification - PDMP CARE PROVIDERS Chantel Mcgee Florist'S Decorator/Senior Technical Writer 07/09/2023-Current PHONE: [phone] MOLLY BUCKLEY Internal Medicine 01/10/2021-Current PHONE: Unknown -[place]- Dentist: Supervisor Anodizing [facility] PHONE: [phone] [place] has no Care Guidelines for this patient. Care History Medical/Surgical 08/12/2020 [facility] Has not seen PCP Dr. Buckley since 05/24/2020.\T\nbsp; Left voice mail on home phone - sister Ramona, emergency contact. 08/16/2020 - Patient has follow up visit with PCP Dr. Buckley on 09/27/2020 at 10:30 am. 11/14/2019 [facility] Patient stated he will make sure repeat labs are done for Dr. Fish per ED discharge instructions and will schedule follow up appointments with him and Dr. Buckley. 10/19/2018 [facility] - Patient is currently established with [facility]. If patient is seen in the ED during business hours. Please contact [facility] at [facility]. Care Recommendation: If this patient has [...] care. E.D. V[facility] (12 MO.) [facility] [address] [place] TOTAL 6 NOTE: Visits indicate total known visits. ED/UCC VISIT TRACKING (12 MO.) 07/19/2023 10:41 [facility] [place] TYPE: Emergency COMPLAINT: - R MIDDLE FINGER WOUND 04/19/2023 01:22 [facility] [place] TYPE: Emergency COMPLAINT: - R FOOT PAIN DIAGNOSES: - Cellulitis of right lower limb - End stage renal disease - Hypertensive chronic kidney disease with stage 5 chronic kidney disease or end stage renal disease - Laceration without foreign body, right foot, initial encounter - stitching machine operator (current) use of anticoagulants - stitching machine operator (current) use of insulin - Personal history of nicotine dependence - Type 2 diabetes mellitus with diabetic chronic kidney disease 01/06/2023 21:40 [facility] [place] TYPE: Emergency COMPLAINT: - VOMITING,FEVER DIAGNOSES: - Contact with and (suspected) exposure to COVID-19 - Essential (primary) hypertension - Fever, unspecified - Hyperkalemia - stitching machine operator (current) use of insulin - Nausea with vomiting, unspecified - Other correction (current) drug therapy - Personal history of nicotine dependence - Type 2 diabetes mellitus without complications 12/29/2022 19:55 [facility] TYPE: Emergency COMPLAINT: - FALL DIAGNOSES: - Contusion of lower back and pelvis, initial encounter - Essential (primary) hypertension - Fall on same level, unspecified, initial encounter - [facility] (current) use of insulin - Other prison teacher (current) drug therapy - Personal history of nicotine dependence - Type 2 diabetes mellitus without complications 10/07/2022 13:00 [facility] [place] TYPE: Emergency DIAGNOSES: - Other chest pain - Unspecified kidney failure - Vomiting, unspecified - chest pain - Emesis 10/05/2022 14:43 [facility] TYPE: Emergency COMPLAINT: - CHEST PAIN DIAGNOSES: - Acute upper respiratory infection, unspecified - Chronic kidney disease, unspecified - Contact with and (suspected) exposure to COVID-19 - Cough, unspecified - Dependence on renal dialysis - Hypertensive chronic kidney disease with stage 1 through stage 4 chronic kidney disease, or unspecified chronic kidney disease - [facility] (current) use of insulin - Other correction (current) drug therapy - Personal history of nicotine dependence - Type 2 diabetes mellitus with diabetic chronic kidney disease INPATIENT VISIT TRACKING (12 MO.) No inpatient visits to display in this time frame [email or web address]
[2023-07-19] MEDS ORDERED: GABAPENTIN300 MG PO (11:18)
[2023-07-19] MEDS ORDERED: AMLODIPINE BESYL5 MG PO (11:18)
[2023-07-19] MEDS ORDERED: METOPROLOL SUCC25 MG PO (11:18)
[2023-07-19 12:45] VITALS: BP 125/61
== END 2023-07-19 12:25 | disposition home or self-care (01) ==
LOC: ED 10:39
DX: L02.511 Cutaneous abscess of right hand (principal); E11.9 Type 2 diabetes mellitus without complications; I10 Essential (primary) hypertension; Z99.2 Dependence on renal dialysis; Z79.899 Other long term (current) drug therapy; Z79.4 Long term (current) use of insulin; Z79.01 Long term (current) use of anticoagulants; Z87.891 Personal history of nicotine dependence
CPT/HCPCS: 26011; 87070; 87205; 99283-25

== ENCOUNTER 2023-09-15 11:21 | Emergency (ER) | payer OTHER ==
[~2023-09-15] VITALS: Ht 182.9 cm; Wt 45.2 kg
[~2023-09-15 11:21] MED LIST changes: +AMLODIPINE BESYL5 MG PO; +GABAPENTIN300 MG PO; +INDAPAMIDE2.5 MG PO; +METOPROLOL SUCC25 MG PO
--- OUTSIDE RECORDS SUMMARY | 2023-09-15 11:24 | XMS ---
PreManage Notification: CELY PALMER Security Manager Enrollment Events No recent Security Events currently on file CRITERIA MET - Group Notification - PDMP CARE PROVIDERS Chantel Mcgee Slip Cover Sewer/Attendance Officer 07/09/2023-Current PHONE: [phone] MOLLY BUCKLEY Internal Medicine 01/10/2021-Current PHONE: Unknown -[place]- Dentist: [employer] [facility] PHONE: [phone] [place] has no Care Guidelines for this patient. Care History Medical/Surgical 08/12/2020 [facility] Has not seen PCP Dr. Buckley since 05/24/2020.\T\nbsp; Left voice mail on home phone - sister Ramona, emergency contact. 08/16/2020 - Patient has follow up visit with PCP Dr. Buckley on 09/27/2020 at 10:30 am. 11/14/2019 [facility] Patient stated he will make sure repeat labs are done for Dr. Fish per ED discharge instructions and will schedule follow up appointments with him and Dr. Buckley. 10/19/2018 [facility] - Patient is currently established with [...] providing care. [facility] [place] (Michell Galarza) TOTAL 7 NOTE: Visits indicate total known visits. ED/UCC VISIT TRACKING (12 MO.) 09/15/2023 11:22 [facility] [place] TYPE: Emergency COMPLAINT: - LOW BLOOD PRESURE 07/19/2023 10:41 [facility] [place] TYPE: Emergency COMPLAINT: - R MIDDLE FINGER WOUND DIAGNOSES: - Cutaneous abscess of right hand - Dependence on renal dialysis - Essential (primary) hypertension - [facility] (current) use of anticoagulants - [facility] (current) use of insulin - Other jail (current) drug therapy - Personal history of nicotine dependence - Type 2 diabetes mellitus without complications 04/19/2023 01:22 [facility] [place] TYPE: Emergency COMPLAINT: - R FOOT PAIN DIAGNOSES: - Cellulitis of right lower limb - End stage renal disease - Hypertensive chronic kidney disease with stage 5 chronic kidney disease or end stage renal disease - Laceration without foreign body, right foot, initial encounter - [facility] (current) use of anticoagulants - [facility] (current) use of insulin - Personal history of nicotine dependence - Type 2 diabetes mellitus with diabetic chronic kidney disease 01/06/2023 21:40 [facility] [place] TYPE: Emergency COMPLAINT: - VOMITING,FEVER DIAGNOSES: - Contact with and (suspected) exposure to COVID-19 - Essential (primary) hypertension - Fever, unspecified - Hyperkalemia - terminal supervisor (current) use of insulin - Nausea with vomiting, unspecified - Other terminal supervisor (current) drug therapy - Personal history of nicotine dependence - Type 2 diabetes mellitus without complications 12/29/2022 19:55 [facility] [place] TYPE: Emergency COMPLAINT: - FALL DIAGNOSES: - Contusion of lower back and pelvis, initial encounter - Essential (primary) hypertension - Fall on same level, unspecified, initial encounter - terminal supervisor (current) use of insulin - Other terminal supervisor (current) drug therapy - Personal history of nicotine dependence - Type 2 diabetes mellitus without complications 10/07/2022 13:00 [facility] [place] (Michell Galarza) TYPE: Emergency DIAGNOSES: - Other chest pain - Unspecified kidney failure - Vomiting, unspecified - chest pain - Emesis 10/05/2022 14:[address] [facility] [place] TYPE: Emergency COMPLAINT: - CHEST PAIN DIAGNOSES: - Acute upper respiratory infection, unspecified - Chronic kidney disease, unspecified - Contact with and (suspected) exposure to COVID-19 - Cough, unspecified - Dependence on renal dialysis - Hypertensive chronic kidney disease with stage 1 through stage 4 chronic kidney disease, or unspecified chronic kidney disease - terminal supervisor (current) use of insulin - Other terminal supervisor (current) drug therapy - Personal history of nicotine dependence - Type 2 diabetes mellitus with diabetic chronic kidney disease INPATIENT VISIT TRACKING (12 MO.) No inpatient visits to display in this time frame [email or web address]
[2023-09-15 15:34] VITALS: BP 125/79
== END 2023-09-15 15:30 | disposition home or self-care (01) ==
LOC: ED 11:21
DX: R11.10 Vomiting, unspecified (principal); R19.7 Diarrhea, unspecified; E11.9 Type 2 diabetes mellitus without complications; I10 Essential (primary) hypertension; Z87.891 Personal history of nicotine dependence; Z79.899 Other long term (current) drug therapy; Z79.4 Long term (current) use of insulin; Z79.01 Long term (current) use of anticoagulants; Z99.2 Dependence on renal dialysis
CPT/HCPCS: 99284

== ENCOUNTER 2024-08-19 21:11 | Emergency (ER) | payer OTHER ==
[~2024-08-19] VITALS: Ht 182.9 cm; Wt 95.7 kg
[2024-08-19 21:42] LABS: HEMOGLOBIN 10.7 g/dL (12.0-18.0)
[2024-08-19 21:44] LABS: BASOPHILS 0.8 % (0-2); EOSINOPHILS 0.7 % (0-6); HEMATOCRIT 31.3 % (35.0-50.0); INR 1.07 (0.80-1.30); LYMPHOCYTES 7.2 % (24-44); MCHC 34.1 g/dl (30-36); MCV 102.7 fl (81-99); NEUTROPHILS 86.3 % (39-80); PLATELET COUNT 194 K/uL (140-440); PROTIME 13.2 Sec (11.2-14.2); RBC 3.05 M/ul (4.3-5.7); RDW 15.4 (10.5-15.0)
[2024-08-19] MEDS ORDERED: NITROGLYCERIN 0.4 MG SUBL SL PRN (21:45)
[2024-08-19] MEDS ORDERED: ondansetron HCL 4 MG/2 ML VIAL IV ONE (21:45)
[2024-08-19 21:57] LABS: ALBUMIN/GLOBULIN RATIO 0.67 (1.1-2.4); ANION GAP 14.8 (7-21); BILIRUBIN, TOTAL 0.8 ng/dL (0.2-1.0); BUN/CREATININE RATIO 4.55 (6.0-28.6); CREATININE, SERUM 7.02 mg/dL (0.70-1.30); POTASSIUM 3.8 mmol/L (3.5-5.1); PROTEIN, TOTAL 7.5 g/dL (6.4-8.2)
[2024-08-19] MEDS ORDERED: DEXTROSE 5% 100 ML IV ONE (22:12)
[2024-08-19] MEDS ORDERED: PANTOPRAZOLE SODIUM 40 MG/10 ML VIAL IV ONE (22:15)
[2024-08-19] MEDS ORDERED: LIDOCAINE & ANTACID 35 ML BTL PO ONE (22:15)
[2024-08-19] MEDS ORDERED: PIPERACILLIN/TAZOBACTAM 3.375 GM in DEXTROSE 5% 100 ML IV ONE (22:15)
[2024-08-19] MEDS ORDERED: DAPTOmycin 500 MG/10 ML VIAL IV ONE (22:15)
[2024-08-19 22:33] LABS: LACTIC ACID, BLOOD 1.3 mmol/L (0.4-2.0)
[2024-08-20] MEDS ORDERED: GABAPENTIN 300 MG CAP PO ONE (01:00)
[2024-08-20] MEDS ORDERED: CALCIUM CARBONATE 500 MG CHEW PO ONE (02:45)
[2024-08-20] MEDS ORDERED: KETOROLAC TROMETHAMINE 30 MG/ML VIAL IV ONE (05:00)
[2024-08-20 08:16] VITALS: BP 145/77
--- NOTE | 2024-08-21 07:56 | EKG ---
[facility] [address] [facility] [place] [address] Signed Poor data quality, interpretation may be adversely affected Normal sinus rhythm Possible Left atrial enlargement Septal infarct (cited on or before 06-MAY-2022) Abnormal ECG When compared with ECG of 26-JUL-2024 05:34, T wave amplitude has decreased in V2 Confirmed by Francoise Pelaez MD () on 08/21/2024 7:55:45 AM Electronically Signed By: FRANCOISE PELAEZ MD 08/21/24 0756 PATIENT NAME: CELY PALMER Electrocardiogram DATE OF : 68 PHYSICIAN: FRANCOISE PELAEZ MD REPORT #: [id number] REPORT IS CONFIDENTIAL AND NOT TO BE RELEASED WITHOUT AUTHORIZATION
== END 2024-08-20 08:21 | disposition short-term general hospital (02) ==
LOC: ED 21:11
PROVIDERS: Internal Medicine
DX: L03.116 Cellulitis of left lower limb (principal); L97.429 Non-pressure chronic ulcer of left heel and midfoot with unspecified severity; I12.0 Hypertensive chronic kidney disease with stage 5 chronic kidney disease or end stage renal disease; E11.22 Type 2 diabetes mellitus with diabetic chronic kidney disease; N18.6 End stage renal disease; Z99.2 Dependence on renal dialysis; Z87.891 Personal history of nicotine dependence; Z79.4 Long term (current) use of insulin; Z79.01 Long term (current) use of anticoagulants; Z79.899 Other long term (current) drug therapy; E11.621 Type 2 diabetes mellitus with foot ulcer
CPT/HCPCS: 36415; 71045; 73590; 73610; 73630; 80053; 83605; 83735; 83880; 84484; 85025; 85610; 87040; 87070; 87075; 87186; 87205; 93005; 93010; 96365; 96366; 96375; 99285-25; A9270; J0878; J1885; J2405; J2470; J2543

== ENCOUNTER 2024-09-04 | Emergency (ER) | payer OTHER ==
[~2024-09-04] VITALS: Ht 182.9 cm; Wt 120.0 kg
[2024-09-04 00:28] LABS: BASOPHILS 0.7 % (0-2); EOSINOPHILS 9.3 % (0-6); HEMATOCRIT 25.9 % (35.0-50.0); LYMPHOCYTES 16.5 % (24-44); MCH 34.3 (27-36); MCHC 34.7 g/dl (30-36); MCV 98.7 fl (81-99); MONOCYTES 5.8 % (0-12); NEUTROPHILS 67.7 % (39-80); PLATELET COUNT 167 K/uL (140-440); RBC 2.63 M/ul (4.3-5.7); RDW 15.7 (10.5-15.0)
[2024-09-04 00:38] LABS: ALBUMIN 2.7 g/dL (3.4-5.0); ALBUMIN/GLOBULIN RATIO 0.64 (1.1-2.4); ALCOHOL, MEDICAL <3 ng/dL (<3); ALKALINE PHOSPHATASE 73 U/L (46-116); ALT (SGPT) 14 U/L (14-59); ANION GAP 9.5 (7-21); AST (SGOT) 18 U/L (15-37); BILIRUBIN, TOTAL 0.3 ng/dL (0.2-1.0); BUN/CREATININE RATIO 5.83 (6.0-28.6); CALCIUM 8.4 mg/dL (8.5-10.1); CARBON DIOXIDE 33 mmol/L (21-32); CHLORIDE 94 mmol/L (98-107); CREATININE, SERUM 7.88 mg/dL (0.70-1.30); GLOMERULAR FILTRATION RATE,EST 7 mL/min (>60); PHOSPHORUS, INORGANIC 3.2 mg/dL (2.5-4.9); POTASSIUM 3.5 mmol/L (3.5-5.1); PROTEIN, TOTAL 6.9 g/dL (6.4-8.2); UREA NITROGEN 46 mg/dL (7-18)
[2024-09-04 03:41] VITALS: BP 139/81
== END 2024-09-04 03:15 | disposition home or self-care (01) ==
LOC: ED
PROVIDERS: Internal Medicine
DX: E10.649 Type 1 diabetes mellitus with hypoglycemia without coma (principal); T38.3X5A Adverse effect of insulin and oral hypoglycemic [antidiabetic] drugs, initial encounter; I12.0 Hypertensive chronic kidney disease with stage 5 chronic kidney disease or end stage renal disease; E10.22 Type 1 diabetes mellitus with diabetic chronic kidney disease; N18.6 End stage renal disease; Z99.2 Dependence on renal dialysis; Z87.891 Personal history of nicotine dependence; Z79.4 Long term (current) use of insulin; Z79.01 Long term (current) use of anticoagulants; Z79.899 Other long term (current) drug therapy
CPT/HCPCS: 36415; 80053; 83735; 84100; 85025; 99285; G0480

== ENCOUNTER 2025-04-29 19:57 | Emergency (ER) | payer OTHER ==
[~2025-04-29] VITALS: Ht 182.9 cm; Wt 115.0 kg
[~2025-04-29 19:57] MED LIST changes: +TRAMADOL HCL50 MG PO
[2025-04-29 20:14] LABS: BASOPHILS 0.5 % (0.2-1.2); EOSINOPHILS 10.9 % (0.8-7.0); HEMATOCRIT 30.9 % (40.1-51.0); HEMOGLOBIN 9.6 g/dL (13.7-17.5); LYMPHOCYTES 15.4 % (21.8-53.1); MCH 29.4 PG (25.7-32.2); MCHC 31.1 g/dL (32.3-36.5); MCV 94.5 fL (79.0-92.2); MONOCYTES 5.2 % (5.3-12.2); NEUTROPHILS 67.7 % (34.0-67.9); PLATELET COUNT 161 K/uL (163-337); RBC 3.27 M/uL (4.63-6.08)
[2025-04-29] MEDS ORDERED: DIPHTH,PERTUSS(ACELL),TET VAC 0.5 ML SYRINGE IM ONE (20:15)
[2025-04-29] MEDS ORDERED: DEXTROSE 5% - NACL 0.9% 1,000 ML IV SCH (20:15)
[2025-04-29] MEDS ORDERED: LORazepam 2 MG/ML VIAL IV ONE (20:15)
[2025-04-29] MEDS ORDERED: HYDROmorphone HCL 1 MG/ML SYR IV PRN (20:15)
[2025-04-29] MEDS ORDERED: levETIRAcetam 4,500 MG in DEXTROSE 5% 100 ML IV ONE (20:15)
[2025-04-29] MEDS ORDERED: GLUCAGON,HUMAN RECOMBINANT 1 MG/ML VIAL IV ONE (20:15)
[2025-04-29] MEDS ORDERED: TRANEXAMIC ACID IN NACL,ISO-OS 1,000 MG/100 ML PIGGYBACK IV ONE (20:15)
[2025-04-29] MEDS ORDERED: ondansetron HCL 4 MG/2 ML VIAL IV ONE (20:15)
[2025-04-29 20:34] LABS: ALBUMIN 2.9 g/dL (3.4-5.0); ALBUMIN/GLOBULIN RATIO 0.67 (1.1-2.4); ALCOHOL, MEDICAL <3 ng/dL (<3); ALKALINE PHOSPHATASE 87 U/L (46-116); ALT (SGPT) 15 U/L (14-59); ANION GAP 17.6 (7-21); AST (SGOT) 11 U/L (15-37); BILIRUBIN, TOTAL 0.5 mg/dL (0.2-1.0); BUN/CREATININE RATIO 4.65 (6.0-28.6); CALCIUM 8.4 mg/dL (8.5-10.1); CARBON DIOXIDE 27 mmol/L (21-32); CHLORIDE 99 mmol/L (98-107); CREATININE, SERUM 11.82 mg/dL (0.70-1.30); GLOMERULAR FILTRATION RATE,EST 5 mL/min (>60); POTASSIUM 5.6 mmol/L (3.5-5.1); PROTEIN, TOTAL 7.2 g/dL (6.4-8.2); UREA NITROGEN 55 mg/dL (7-18)
[2025-04-29 23:56] VITALS: BP 158/88
== END 2025-04-30 06:55 | disposition home or self-care (01) ==
LOC: ED 19:57
PROVIDERS: Family Medicine
DX: S01.112A Laceration without foreign body of left eyelid and periocular area, initial encounter (principal); E10.649 Type 1 diabetes mellitus with hypoglycemia without coma; I10 Essential (primary) hypertension; W18.30XA Fall on same level, unspecified, initial encounter; Z79.4 Long term (current) use of insulin; Z79.899 Other long term (current) drug therapy; Z87.891 Personal history of nicotine dependence
CPT/HCPCS: 12011; 36415; 70450; 72125; 80053; 85025; 90715; 94799; 99284-25; G0480; J1610; J1953; J2060; J2405; J7042

== ENCOUNTER 2025-05-11 13:20 | Emergency (ER) | payer OTHER ==
[~2025-05-11] VITALS: Ht 182.9 cm; Wt 113.0 kg
[2025-05-11] MEDS ORDERED: AMOX TR-K CLV1 EAC1 PO (14:43)
[2025-05-11] MEDS ORDERED: AMOXICILLIN/CLAVULANATE K 875 MG TAB PO ONE (14:45)
[2025-05-11 15:20] VITALS: BP 185/100
== END 2025-05-11 15:25 | disposition home or self-care (01) ==
LOC: ED 13:20
DX: L03.213 Periorbital cellulitis (principal); E11.9 Type 2 diabetes mellitus without complications; I10 Essential (primary) hypertension; Z79.4 Long term (current) use of insulin; Z79.899 Other long term (current) drug therapy; Z87.891 Personal history of nicotine dependence
CPT/HCPCS: 70450; 99283-25

== ENCOUNTER 2025-06-02 08:37 | Emergency (ER) | payer OTHER ==
[~2025-06-02] VITALS: Ht 182.9 cm; Wt 105.1 kg
[~2025-06-02 08:37] MED LIST changes: +AMOX TR-K CLV1 EAC1 PO
[2025-06-02 09:40] VITALS: BP 146/74
[2025-06-02] MEDS ORDERED: BENADRYL ALLERG25 MG PO (09:48)
== END 2025-06-02 09:56 | disposition home or self-care (01) ==
LOC: ED 08:37
DX: L29.9 Pruritus, unspecified (principal); I10 Essential (primary) hypertension; E10.22 Type 1 diabetes mellitus with diabetic chronic kidney disease; N18.6 End stage renal disease; Z99.2 Dependence on renal dialysis; Z87.891 Personal history of nicotine dependence; Z79.2 Long term (current) use of antibiotics; Z90.49 Acquired absence of other specified parts of digestive tract
CPT/HCPCS: 99282

== ENCOUNTER 2025-07-13 17:41 | Emergency (ER) | payer OTHER ==
[~2025-07-13] VITALS: Ht 182.9 cm; Wt 101.5 kg
[~2025-07-13 17:41] MED LIST changes: +BENADRYL ALLERG25 MG PO
[2025-07-13 17:58] LABS: BASOPHILS 0.1 % (0.2-1.2); EOSINOPHILS 0 % (0.8-7.0); LYMPHOCYTES 7.5 % (21.8-53.1); MCH 29.7 PG (25.7-32.2); MCHC 31.2 g/dL (32.3-36.5); MCV 95.2 fL (79.0-92.2); MONOCYTES 5.9 % (5.3-12.2); NEUTROPHILS 86.0 % (34.0-67.9); RBC 3.30 M/uL (4.63-6.08)
[2025-07-13] MEDS ORDERED: NOREPINEPHRINE BITARTRATE 250 ML IV ONE (17:59)
[2025-07-13] MEDS ORDERED: CALCIUM CHLORIDE 1,000 MG/10 ML SYR IV ONE ×2 (18:00→18:30)
[2025-07-13] MEDS ORDERED: NOREPINEPHRINE BITARTRATE 250 ML IV SCH (18:00)
[2025-07-13 18:11] LABS: INR 1.76 (0.80-1.30); PROTIME 19.4 Sec (11.2-14.2)
[2025-07-13 18:14] LABS: ALT (SGPT) 18.0 U/L (14-59); AST (SGOT) 55.0 U/L (15-37); GLOMERULAR FILTRATION RATE,EST 4.0 mL/min (>60); PROTEIN, TOTAL 7.4 g/dL (6.4-8.2); UREA NITROGEN 101.0 mg/dL (7-18)
[2025-07-13] MEDS ORDERED: ACETAMINOPHEN 650 MG SUPP PR ONE (19:15)
[2025-07-13] MEDS ORDERED: Insulin Regular, Human 100 UNIT/ML ML IV ONE ×2 (19:15→19:45)
[2025-07-13] MEDS ORDERED: AZITHROMYCIN 500 MG in DEXTROSE 5% 250 ML IV ONE (19:15)
[2025-07-13] MEDS ORDERED: VANCOMYCIN HCL 1 GM in DEXTROSE 5% 250 ML IV ONE (19:45)
[2025-07-13] MEDS ORDERED: ALBUTEROL SULFATE 0.083% 3 ML VIAL INH ONE (19:45)
[2025-07-13] MEDS ORDERED: SODIUM ZIRCONIUM CYCLOSILICATE 10 GM PACK PO ONE (19:45)
[2025-07-13] MEDS ORDERED: FERROUS SULFAT324 MG PO (19:48)
[2025-07-13] MEDS ORDERED: IMODIUM A-D2 M2 PO (19:50)
[2025-07-13] MEDS ORDERED: XANAX0.5 MG PO (19:57)
[2025-07-13] MEDS ORDERED: RELION NOV100 UNIT/1 SUB-Q (19:59)
[2025-07-13] MEDS ORDERED: METOPROLOL TART25 MG PO (19:59)
[2025-07-13 20:00] LABS: GLOMERULAR FILTRATION RATE,EST 4.0 mL/min (>60); UREA NITROGEN 100.0 mg/dL (7-18)
[2025-07-13] MEDS ORDERED: ALBUTEROL SULFATE 0.042% 1.25 MG/3 ML VIAL INH ONE (20:00)
[2025-07-13] MEDS ORDERED: SODIUM BICARBONATE 50 MEQ/50 ML VIAL ONE (20:04)
[2025-07-13] MEDS ORDERED: SODIUM BICARBONATE 50 MEQ/50 ML SYR IV ONE (20:30)
[2025-07-13 21:09] VITALS: BP 129/55
--- NOTE | 2025-07-15 23:17 | EKG ---
[facility] [address] [facility] [place] [address] Signed Atrial fibrillation Nonspecific intraventricular conduction delay Marked ST abnormality, possible inferior subendocardial injury Abnormal ECG When compared with ECG of 19-AUG-2024 21:41, Significant changes have occurred Confirmed by Francoise Pelaez MD () on 07/15/2025 11:17:47 PM Electronically Signed By: FRANCOISE PELAEZ MD 07/15/25 2317 PATIENT NAME: SPENCERCELY KATERINE Electrocardiogram DATE OF : 68 PHYSICIAN: FRANCOISE PELAEZ MD REPORT #: [id number] REPORT IS CONFIDENTIAL AND NOT TO BE RELEASED WITHOUT AUTHORIZATION
== END 2025-07-13 21:40 | disposition short-term general hospital (02) ==
LOC: ED 17:41
PROVIDERS: Emergency Medicine
DX: A41.9 Sepsis, unspecified organism (principal); E87.5 Hyperkalemia; E11.22 Type 2 diabetes mellitus with diabetic chronic kidney disease; I12.0 Hypertensive chronic kidney disease with stage 5 chronic kidney disease or end stage renal disease; N18.6 End stage renal disease; Z91.158 Patient's noncompliance with renal dialysis for other reason; Z99.2 Dependence on renal dialysis; Z87.891 Personal history of nicotine dependence; Z79.01 Long term (current) use of anticoagulants; Z79.4 Long term (current) use of insulin; Z79.899 Other long term (current) drug therapy
CPT/HCPCS: 36415; 51702; 71045; 80048; 80053; 81001; 82803; 83605; 85025; 85610; 87040; 87077; 87186; 93005; 93010; 94640; 94644; 96365; 96367; 96375; 96376; 99291; A9270; J0456; J0696; J1815; J3373; J7060